=== PATIENT | female | born 1960 | race African-American/Black ===

== ENCOUNTER 2017-01-02 11:21 | Observation (INO) | payer MEDICARE, MEDICAID ==
[2017-01-02] VITALS (8 sets, daily range): BP systolic 135–190; BP diastolic 63–87; PULSE 76–88; RESP 18–24; TEMP 96–97.9; O2SAT 100
[~2017-01-02] VITALS: Ht 170.2 cm; Wt 103.0 kg
[~2017-01-02 11:21] MED LIST: CALC1CAP PO; COZA50TA PO; FURO1TAB61 PO; LABE200T2 PO; LEVEMIR SQ; LEXA10TA PO; METO5TAB PO; PANT40TA3 PO; PLAV75TA29 PO; PRAV80TA PO; PROM25TA5 PO; SENS60TA PO; TYLETAB34 PO
[2017-01-02] MEDS ORDERED: SODIUM CHLOR 0.9% 1000 ML INJ 1,000 ML IV ONE (11:24)
--- NOTE | 2017-01-02 11:39 | PD ---
HPI Chief Complaint: stroke alert Time Seen by Provider: 11:24 Travel History International Travel<30 days: No Contact w/Intl Traveler<30days: No Traveled to known affect area: No History of Present Illness HPI 56-year-old female with history of hypertension, end-stage renal disease on dialysis, legally blind, presents to the ER today brought in by EMS as a stroke alert. Apparently, had been normal according to this morning, had gone to the bank, and about an hour prior to arrival, started getting disoriented, slurred speech, and he had called EMS. Patient is currently disoriented but following some commands. She is able to lift all 4 extremities off the bed. No obvious pronator drift. She denies any numbness in any leg or arm and individually. She denies any chest pains, shortness of breath, or other issues. Modifying Factors: None Associated Signs & Symptoms: Stroke alert, altered mental status, slurred speech Risk Factors: Elderly, multiple medical issues PFSH Past Medical History Anemia: Yes Arthritis: Yes Asthma: No Autoimmune Disease: No Blood Disorders: Yes (anemia of chronic disease) Anxiety: Yes Depression: Yes Cardiac Catheterization: Yes (YESTERDAY LEFT GROIN ) Cardiovascular Problems: Yes High Cholesterol: Yes Chest Pain: Yes Congestive Heart Failure: Yes Cerebrovascular Accident: No Diabetes: Yes Dialysis: Yes (Fri/FRI/FRI) Diminished Hearing: No Endocrine: Yes (DM) Gastrointestinal Disorders: Yes Glaucoma: No Genitourinary: Yes Headaches: Yes Hepatitis: No Hiatal Hernia: No Hypertension: Yes Immune Disorder: No Implanted Vascular Access Dvce: Yes (L UPPER ARM AVF) Musculoskeletal: No Neurologic: No Psychiatric: No Reproductive: No Respiratory: No Renal Failure: Yes (HEMODIALYSIS) Seizures: No Sickle Cell Disease: No Thyroid Disease: No PNEUMOCCOCAL Vaccine (Year): 2 Menopausal: Yes : 2 Para: 1 Miscarriage: 1 : 0 Past Surgical History Abdominal Surgery: Yes Appendectomy: Yes Section: Yes Eye Surgery: Yes Gynecologic Surgery: Yes Pacemaker: No Other Surgery: Yes (LEFT ARM SHUNT PLACEMENT) Social History Alcohol Use: No Tobacco Use: No Substance Use: No Allergies-Medications (Allergen,Severity, Reaction): Coded Allergies: Linezolid (Verified Allergy, Severe, VOMITING, 08/22/16) Percocet (Verified Allergy, Severe, VOMITING, 08/22/16) Zocor (Verified Allergy, Severe, VOMITING, 08/22/16) Zosyn (Verified Allergy, Severe, VOMITING, 08/22/16) Reported Meds & Prescriptions Reported Meds & Active Scripts Active Pantoprazole (Pantoprazole Sodium) 40 Mg Tab 40 Mg PO DAILY 30 Days Calcium Acetate (Phosphate Binder) 667 Mg Cap 667 Mg PO TID 30 Days Reported Tylenol-Codeine #3 (Acetaminophen-Codeine) 300-30 mg Tab 1 Tab PO BID PRN Sensipar (Cinacalcet) 60 Mg Tab 60 Mg PO DAILY Pravachol (Pravastatin) 80 Mg Tab 80 Mg PO DAILY Plavix (Clopidogrel Bisulfate) 75 Mg Tab 75 Mg PO DAILY Phenergan (Promethazine HCl) 25 Mg Tab 25 Mg PO Q6H PRN Metoclopramide (Metoclopramide HCl) 5 Mg Tab 5 Mg PO TIDAC Lexapro (Escitalopram Oxalate) 10 Mg Tab 10 Mg PO DAILY Levemir Inj (Insulin Detemir) 1,000 unit/ 10 ML Vial 25 Units SQ HS PRN Do not mix with any other Insulin. Lasix (Furosemide) 80 Mg Tab 80 Mg PO MON,WED,FRI Labetalol (Labetalol HCl) 200 Mg Tab 200 Mg PO BID Cozaar (Losartan Potassium) 50 Mg Tab 50 Mg PO DAILY Review of Systems ROS Limitations: Altered Mental Status (it is questionable whether he is a reliable historian) Physical Exam Narrative GENERAL: Well-developed middle age -[place]igerien female patient who is awake , alert, mildly disoriented. None acute distress. SKIN: Warm and dry. HEAD: Atraumatic. Normocephalic. EYES: Pupils equal and round. No scleral icterus. No injection or drainage. ENT: No nasal bleeding or discharge. Mucous membranes pink and moist. NECK: Trachea midline. No JVD. CARDIOVASCULAR: Regular rate and rhythm. No murmur appreciated. RESPIRATORY: No accessory muscle use. Clear to auscultation. Breath sounds equal bilaterally. GASTROINTESTINAL: Abdomen soft, non-tender, nondistended. Hepatic and splenic margins not palpable. MUSCULOSKELETAL: No obvious deformities. No clubbing. No cyanosis. No edema. NEUROLOGICAL: Awake and alert, mildly disoriented, lethargic. Blindness bilaterally. No obvious cranial nerve deficits. Motor grossly within normal limits. Slurred speech. No pronator drift. Able to do a normal Romberg. PSYCHIATRIC: Appropriate mood and affect; insight and judgment normal. Data Data Last Documented VS Vital Signs Date Time Temp Pulse Resp B/P Pulse Ox O2 Delivery O2 Flow Rate FiO2 01/02/17 12:20 88 24 135/64 100 Nasal Cannula 2 01/02/17 11:21 97.9 Orders Diet Npo (01/02/17 Lunch) Activity Bed Rest (01/02/17 ) Electrocardiogram (01/02/17 ) I-Stat Creatinine (01/02/17 11:24) I-Stat Profile (01/02/17 11:24) Prothrombin Time / Inr (Pt) (01/02/17 11:24) Act Partial Throm Time (Ptt) (01/02/17 11:24) Complete Blood Count With Diff (01/02/17 11:24) Fibrinogen (01/02/17 11:24) Creatine Kinase (Cpk) (01/02/17 11:24) Troponin I (01/02/17 11:24) Ua Includes Microscopic (01/02/17 11:24) Drug Screen, Random Urine (01/02/17 11:24) Type And Screen (01/02/17 11:24) Ct Brain W/O Iv Contrast(Rout) (01/02/17 ) Blood Glucose (01/02/17 11:24) Ecg Monitoring (01/02/17 11:24) Neuro Checks Q2HX12,Q4H (01/02/17 11:24) Nursing Bedside Swallow Assess .ONCE (01/02/17 11:24) Iv Access Insert/Monitor (01/02/17 11:24) NPO (01/02/17 11:24) Oximetry (01/02/17 11:24) Oxygen Administration (01/02/17 11:24) Sodium Chlor 0.9% 1000 Ml Inj (Ns 1000 M (01/02/17 11:24) Resp Oxygen Isai C Titrat 1-4 L (01/02/17 11:24) Cath For Specimen (01/02/17 11:24) Dextrose 50% In Sarmad (Syr) Inj (D50w (Syr (01/02/17 12:05) Aspirin (Aspirin) (01/02/17 12:45) Admit Order (Ed Use Only) (01/02/17 13:01) Acetamin-Codeine 300-30 Mg (Tylenol-Code (01/02/17 13:00) Calcium Acetate (Phoslo) (01/02/17 14:00) Clopidogrel (Plavix) (01/03/17 09:00) Escitalopram (Lexapro) (01/03/17 09:00) Furosemide (Lasix) (01/03/17 09:00) Labetalol (Trandate) (01/02/17 21:00) Losartan (Cozaar) (01/03/17 09:00) Metoclopramide (Reglan) (01/02/17 17:00) Pantoprazole (Protonix) (01/03/17 09:00) Pravastatin (Pravachol) (01/03/17 09:00) Labs Laboratory Tests Test 01/02/17 11:25 White Blood Count 7.1 TH/MM3 Red Blood Count 3.11 MIL/MM3 Hemoglobin 9.5 GM/DL Bedside Hemoglobin 10.2 G/DL Hematocrit 29.6 % Bedside Hematocrit 30.0 % Mean Corpuscular Volume 95.0 FL Mean Corpuscular Hemoglobin 30.7 PG Mean Corpuscular Hemoglobin 32.3 % Concent Red Cell Distribution Width 18.7 % Platelet Count 215 TH/MM3 Mean Platelet Volume 9.1 FL Neutrophils (%) (Auto) 61.6 % Lymphocytes (%) (Auto) 22.7 % Monocytes (%) (Auto) 9.8 % Eosinophils (%) (Auto) 5.0 % Basophils (%) (Auto) 0.9 % Neutrophils # (Auto) 4.4 TH/MM3 Lymphocytes # (Auto) 1.6 TH/MM3 Monocytes # (Auto) 0.7 TH/MM3 Eosinophils # (Auto) 0.4 TH/MM3 Basophils # (Auto) 0.1 TH/MM3 CBC Comment DIFF FINAL Differential Comment Prothrombin Time 10.8 SEC Prothromb Time International 1.0 RATIO Ratio Activated Partial 23.0 SEC Thromboplast Time Fibrinogen 341 mg/dL Bedside Sodium 138 MMOL/L Bedside Potassium 4.0 MMOL/L Bedside Chloride 97 MMOL/L Bedside Blood Urea Nitrogen 38 MG/DL Bedside Creatinine 7.6 MG/DL Bedside Glucose 69 MG/DL Total Creatine Kinase 179 U/L Troponin I 0.02 NG/ML Blood Type O POSITIVE Antibody Screen NEGATIVE [facility] Medical Screen Exam Complete: Yes Emergency Medical Condition: Yes Medical Record Reviewed: Yes EKG Prior to Arrival: Yes Differential Diagnosis EKG shows NSR with a first-degree AV block, no ST elevation or depression, and no arrhythmias. No significant T-wave inversions. Last [address] 01/02/17 0000 Signed Impressions: Service Date/Time: December 11:31 - CONCLUSION: Normal examination. Aroldo Broderick MD Laboratory Tests Test 01/02/17 11:25 Red Blood Count 3.11 MIL/MM3 (4.00-5.30) Hemoglobin 9.5 GM/DL (11.6-15.3) Bedside Hemoglobin 10.2 G/DL (12.0-17.0) Hematocrit 29.6 % (35.0-46.0) Bedside Hematocrit 30.0 % (38.0-51.0) Red Cell Distribution Width 18.7 % (11.6-17.2) Monocytes (%) (Auto) 9.8 % (0.0-8.0) Eosinophils (%) (Auto) 5.0 % (0.0-4.0) Activated Partial 23.0 SEC Thromboplast Time (24.3-30.1) Bedside Chloride 97 MMOL/L (98-109) Bedside Blood Urea Nitrogen 38 MG/DL (8-26) Bedside Creatinine 7.6 MG/DL (0.6-1.0) Metabolic issues versus CVA versus ICH versus hypertensive emergency Narrative Course Stroke alert was called on the patient and CAT scan was done. Patient did not have any significant focal neurological deficit although she did have some mild disorientation initially. Her blood sugar was 70 in the ER. She was given some orange juice and D50 in the ER. CAT scan was negative and on reevaluation of the patient, she has not having slurred speech and is oriented enough to understand what I'm saying and wants to have her boyfriend help her make TPA decisions. The case had been discussed with who initially had thought of doing TPA but considering that the patient had clearing of symptoms, had an NIH stroke score of less than 1, did not feel that she was a good candidate for TPA. At this point, my plan would be to admit the patient for further observation. Case is discussed with Dr. Warren for admission. Stroke Alert NIHSS NIH Stroke Scale Result: 0 NIHSS Time Completed: 11:22 Thrombolytic Delayed Delay > 60 Mins From Arrival: Eligibility determination Delay Comment: It was felt that the patient is not a TPA candidate because of improvement in Cerner speech and mental status, low NIH stroke score Diagnosis Diagnosis: Primary Impression: National Institutes of Health (NIH) Stroke Scale level of consciousness score 1 , not alert; but arousable by minor stimulation to obey, answer, or respond Admitting Physician Requests: Admit Tre Amanda MD Jan 02, 2017 11:39
[2017-01-02 11:47] LABS: AUTOMATED NEUTROPHIL # 4.4 TH/MM3 (1.8-7.7); BASOPHIL # 0.1 TH/MM3 (0-0.2); BASOPHIL % 0.9 % (0.0-2.0); EOSINOPHIL # 0.4 TH/MM3 (0-0.4); HEMATOCRIT 29.6 % (35.0-46.0); HEMO FLAGS DIFF FINAL; LYMPH % 22.7 % (9.0-44.0); LYMPHOCYTE # 1.6 TH/MM3 (1.0-4.8); MEAN CORPUSCULAR HEMOGLOBIN 30.7 PG (27.0-34.0); MEAN CORPUSCULAR HGB CONC 32.3 % (32.0-36.0); MONO % 9.8 % (0.0-8.0); NEUT % 61.6 % (16.0-70.0); PLATELET COUNT 215 TH/MM3 (150-450); RED BLOOD COUNT 3.11 MIL/MM3 (4.00-5.30); RED CELL DISTRIBUTION WIDTH 18.7 % (11.6-17.2); WHITE BLOOD COUNT 7.1 TH/MM3 (4.0-11.0)
[2017-01-02 11:55] LABS: PROTHROMBIN TIME - PATIENT 10.8 SEC (9.8-11.6)
--- NOTE | 2017-01-02 11:56 | RADRPT ---
EXAM DATE/TIME: 01/02/2017 11:31 [facility] COMPARISON: CT BRAIN W/O CONTRAST, January 18, 2015, 2:32. INDICATIONS : Stroke alert; slurred speech. RADIATION DOSE: 52.82 CTDIvol (mGy) This report was called by Dr. Broderick to Dr. Amanda at 11: 39 AM MEDICAL HISTORY : Cardiovascular disease. Hypertension. Diabetes mellitus type 2. SURGICAL HISTORY : None. ENCOUNTER: Initial ACUITY: 1 day PAIN SCALE: Non-responsive LOCATION: cranial TECHNIQUE: Multiple contiguous axial images were obtained of the head. Using automated exposure control and adj ustment of the mA and/or kV according to patient size, radiation dose was kept as low as reasonably a chievable to obtain optimal diagnostic quality images. FINDINGS: CEREBRUM: The ventricles are normal for age. No evidence of midline shift, mass lesion, hemorrhage or acute in farction. No extra-axial fluid collections are seen. POSTERIOR FOSSA: The cerebellum and brainstem are intact. The 4th ventricle is midline. The cerebellopontine angle i s unremarkable. EXTRACRANIAL: The visualized portion of the orbits is intact. SKULL: The calvaria is intact. No evidence of skull fracture. CONCLUSION: Normal examination. Aroldo Broderick MD on January 02, 2017 at 11:38 Board Certified Radiologist. This report was verified electronically.
[2017-01-02] MEDS ORDERED: DEXTROSE 50% IN WATER 50 ML SYRINGE ONE (12:05)
[2017-01-02] MEDS ORDERED: ASPIRIN 325 MG TAB PO ONE (12:45)
[2017-01-02] MEDS ORDERED: ACETAMINOPHEN/CODEINE 300 MG/30 MG TAB PO PRN (13:00)
[2017-01-02] MEDS ORDERED: SODIUM CHLOR 0.9% 1000 ML INJ 1,000 ML IV SCH (13:02)
[2017-01-02] MEDS ORDERED: ONDANSETRON HCL 4 MG/2 ML VIAL IVP PRN (13:15)
[2017-01-02] MEDS ORDERED: BISACODYL 10 MG SUPP PR PRN (13:15)
[2017-01-02] MEDS ORDERED: ACETAMINOPHEN 325 MG TAB PO PRN ×2 (13:15→15:30)
[2017-01-02] MEDS ORDERED: NALOXONE HCL 0.4 MG/ML AMP IV PRN ×2 (13:15)
[2017-01-02] MEDS ORDERED: SODIUM CHLORIDE 0.9% FLUSH 5 ML FLUSH FLUSH PRN (13:15)
--- NOTE | 2017-01-02 13:19 | HHI.HP ---
[facility] Unknown Admission Diagnosis stroke alert Diagnoses: Chief Complaint: slurred speech, altered Mental Status Travel History International Travel<30 Days: No Contact w/Intl Traveler <30 Da: No Traveled to Known Affected Are: No History of Present Illness This is a pleasant 56 y/o female with Hypertension, ESRD on HD, legally blind who came to ER as Stroke alert, apparently had been normal according to this morning, had gone to the bank, and about an hour prior to arrival, started getting disoriented, slurred speech, and he had called EMS. Patient is currently disoriented but following some commands. She is able to lift all 4 extremities off the bed. No obvious pronator drift. She denies any numbness in any leg or arm and individually. She denies any chest pains, shortness of breath, or other issues. as we know she has Anemia on chronic disease, OA, Anxiety disorder, Depression, CAD status post Left heart cath, Hyperlipidemia, Angina, CHF, DM II, ESRD on HD Friday, Friday and Friday, Hypertension, today with Accelerated Hypertension. Patient seen in Emergency room in the presence of her Son Mr. Sommer Lovell he states he was called due to his mother had this AMS and slurred speech but at this time she states is at normal baseline. her blood pressure elevated but as per guidelines not indicated treatment unless her Systolic blood pressure >220 mm Hg. or Diastolic blood pressure >110 mm Hg. Review of Systems ROS Limitations: Altered Mental Status Neurologic: COMPLAINS OF: Speech Problems Past Family Social History Past Medical History ESRD on HD Obesity Hypertension. Hyperlipidemia Depression Past Surgical History Abdominal surgery Appendectomy C Section Cataract surgery Left arm AV placement. Reported Medications Reported Meds & Active Scripts Active Pantoprazole (Pantoprazole Sodium) 40 Mg Tab 40 Mg PO DAILY 30 Days Calcium Acetate (Phosphate Binder) 667 Mg Cap 667 Mg PO TID 30 Days Reported Tylenol-Codeine #3 (Acetaminophen-Codeine) 300-30 mg Tab 1 Tab PO BID PRN Sensipar (Cinacalcet) 60 Mg Tab 60 Mg PO DAILY Pravachol (Pravastatin) 80 Mg Tab 80 Mg PO DAILY Plavix (Clopidogrel Bisulfate) 75 Mg Tab 75 Mg PO DAILY Phenergan (Promethazine HCl) 25 Mg Tab 25 Mg PO Q6H PRN Metoclopramide (Metoclopramide HCl) 5 Mg Tab 5 Mg PO TIDAC Lexapro (Escitalopram Oxalate) 10 Mg Tab 10 Mg PO DAILY Levemir Inj (Insulin Detemir) 1,000 unit/ 10 ML Vial 25 Units SQ HS PRN Do not mix with any other Insulin. Lasix (Furosemide) 80 Mg Tab 80 Mg PO MON,WED,FRI Labetalol (Labetalol HCl) 200 Mg Tab 200 Mg PO BID Cozaar (Losartan Potassium) 50 Mg Tab 50 Mg PO DAILY Allergies: Coded Allergies: Linezolid (Verified Allergy, Severe, VOMITING, 08/22/16) Percocet (Verified Allergy, Severe, VOMITING, 08/22/16) Zocor (Verified Allergy, Severe, VOMITING, 08/22/16) Zosyn (Verified Allergy, Severe, VOMITING, 08/22/16) Active Ordered Medications Current Medications Medications (Trade) Dose Ordered Sig/Peter Route Start Time Stop Time Status Last Admin (NS 1000 ml Inj) 1,000 ml @ 70 mls/hr [id number] ONCE IV 01/02/17 11:24 01/03/17 01:41 01/02/17 12:10 (Tylenol-Codeine #3) 1 tab BID PRN PO 01/02/17 13:00 UNV (Phoslo) 667 mg TID PO 01/02/17 13:00 UNV (Plavix) 75 mg DAILY PO 01/03/17 09:00 UNV (Lexapro) 10 mg DAILY PO 01/03/17 09:00 UNV (Lasix) 80 mg DAILY PO 01/03/17 09:00 UNV (Trandate) 200 mg BID PO 01/02/17 21:00 UNV (Cozaar) 50 mg DAILY PO 01/03/17 09:00 UNV (Reglan) 5 mg TIDAC PO 01/02/17 17:00 UNV (Protonix) 40 mg DAILY PO 01/03/17 09:00 UNV Pravastatin Sodium 80 mg 80 mg DAILY PO 01/03/17 09:00 UNV (NS 1000 ml Inj) 1,000 ml @ 75 mls/hr [id number] IV 01/02/17 13:02 UNV (NS Flush) 2 ml UNSCH PRN FLUSH 01/02/17 13:15 UNV (NS Flush) 2 ml BID FLUSH 01/02/17 21:00 UNV (Tylenol) 650 mg Q4H PRN PO 01/02/17 13:15 UNV (Zofran Inj) 4 mg Q6H PRN IVP 01/02/17 13:15 UNV (Dulcolax Supp) [address] 01/02/17 13:15 UNV (Colace) 100 mg Q12H PO 01/02/17 13:15 UNV (Heparin Inj) 5,000 units Q12H SQ 01/02/17 13:15 UNV (Narcan Inj) 0.4 mg UNSCH PRN IV 01/02/17 13:15 UNV Family History Asked and denied. Social History Denies any toxic habits. Physical Exam Vital Signs Vital Signs Date Time Temp Pulse Resp B/P Pulse Ox O2 Delivery O2 Flow Rate FiO2 01/02/17 12:17 100 Nasal Cannula 2 01/02/17 11:25 100 Nasal Cannula 3.00 01/02/17 11:21 97.9 80 19 184/79 100 Physical Exam GENERAL: Obese patient in no acute distress. SKIN: Warm and dry. HEAD: Atraumatic. Normocephalic. EYES: Pupils equal and round. Legally blind states is not able to see me. ENT: No nasal bleeding or discharge. Mucous membranes pink and moist. NECK: Trachea midline. No JVD. CARDIOVASCULAR: Regular rate and rhythm. No murmur appreciated. RESPIRATORY: No accessory muscle use. Clear to auscultation. Breath sounds equal bilaterally. GASTROINTESTINAL: Abdomen soft, non-tender, nondistended. Hepatic and splenic margins not palpable. MUSCULOSKELETAL: No obvious deformities. No clubbing. No cyanosis. No edema. NEUROLOGICAL: Awake and alert, mildly disoriented, lethargic. Blindness bilaterally. No obvious cranial nerve deficits. No Slurred speech PSYCHIATRIC: Appropriate mood and affect; insight and judgment normal. Laboratory Laboratory Tests Test 01/02/17 11:25 White Blood Count 7.1 Red Blood Count 3.11 Hemoglobin 9.5 Bedside Hemoglobin 10.2 Hematocrit 29.6 Bedside Hematocrit 30.0 Mean Corpuscular Volume 95.0 Mean Corpuscular Hemoglobin 30.7 Mean Corpuscular Hemoglobin 32.3 Concent Red Cell Distribution Width 18.7 Platelet Count 215 Mean Platelet Volume 9.1 Neutrophils (%) (Auto) 61.6 Lymphocytes (%) (Auto) 22.7 Monocytes (%) (Auto) 9.8 Eosinophils (%) (Auto) 5.0 Basophils (%) (Auto) 0.9 Neutrophils # (Auto) 4.4 Lymphocytes # (Auto) 1.6 Monocytes # (Auto) 0.7 Eosinophils # (Auto) 0.4 Basophils # (Auto) 0.1 CBC Comment DIFF FINAL Differential Comment Prothrombin Time 10.8 Prothromb Time International 1.0 Ratio Activated Partial 23.0 Thromboplast Time Fibrinogen 341 Bedside Sodium 138 Bedside Potassium 4.0 Bedside Chloride 97 Bedside Blood Urea Nitrogen 38 Bedside Creatinine 7.6 Bedside Glucose 69 Total Creatine Kinase 179 Troponin I 0.02 Blood Type O POSITIVE Antibody Screen NEGATIVE Result Diagram: 01/02/17 1125 Imaging GENERAL: Well-developed middle age -[place]oven[place] female patient who is awake , alert, mildly disoriented. None acute distress. SKIN: Warm and dry. HEAD: Atraumatic. Normocephalic. EYES: Pupils equal and round. No scleral icterus. No injection or drainage. ENT: No nasal bleeding or discharge. Mucous membranes pink and moist. NECK: Trachea midline. No JVD. CARDIOVASCULAR: Regular rate and rhythm. No murmur appreciated. RESPIRATORY: No accessory muscle use. Clear to auscultation. Breath sounds equal bilaterally. GASTROINTESTINAL: Abdomen soft, non-tender, nondistended. Hepatic and splenic margins not palpable. MUSCULOSKELETAL: No obvious deformities. No clubbing. No cyanosis. No edema. NEUROLOGICAL: Awake and alert, mildly disoriented, lethargic. Blindness bilaterally. No obvious cranial nerve deficits. Motor grossly within normal limits. Slurred speech. No pronator drift. Able to do a normal Romberg. PSYCHIATRIC: Appropriate mood and affect; insight and judgment normal. Last Impressions Head CT 01/02/17 0000 Signed Impressions: Service Date/Time: December 11:31 - CONCLUSION: Normal examination. Aroldo Broderick MD Assessment and Plan Assessment and Plan 1. Acute Encephalopathy suspected Stroke versus TIA, CT brain negative, discussed with Dr Pappas by ER specialist initially was recommended for TPA but then the patient had rapid improvement so not given. continue Aspirin, Cardiac monitoring, continue Anti hypertensives. although in this cases Permissive Hypertension is the Management. he Encephalopathy improved, asked for Brain MRI, Carotid Doppler and Echocardiogram . 2. DM II follow for possible Hypoglycemia, started Hypoglycemia protocol, continue sliding scale. follow Hb A1C. 3. Accelerated Hypertension permissive only treat it if goes Systolic >220 mm Hg or Diastolic > 110 mm Hg. 4. ESRD on HD on , and . with who initially had thought of doing TPA but the patient improved fast was reconsidered. It was felt that the patient is not a TPA candidate because of improvement 5. Obesity strongly recommended diet and exercise. 6. Hyperlipidemia continue Home medicines. 7. Depression continue Home medicines discussed with patient and her Son in the room Mr. Sommer Lovell all questions answered As Always a pleasure to talk about cases receive input and recommendations by Emergency Medicine specialist Doctor Tre Amanda appreciated. DVT prophylaxis with Heparin. Code Status Full Code. Physician Certification 2 Midnight Certification Type: Admission for Inpatient Services Order for Inpatient Services The services are ordered in accordance with Medicare regulations or non- Medicare payer requirements, as applicable. In the case of services not specified as inpatient-only, they are appropriately provided as inpatient services in accordance with the 2-midnight benchmark. Estimated LOS (days): 1 days is the estimated time the patient will need to remain in the hospital, assuming treatment plan goals are met and no additional complications. Post-Hospital Plan: Home Juma Hwang MD Jan 02, 2017 13:19
--- NOTE | 2017-01-02 15:11 | RADRPT ---
EXAM DATE/TIME: 01/02/2017 13:37 [facility] COMPARISON: US CAROTID ARTERIES, October 11, 2013, 14:36. INDICATIONS : Transient ischemic attack. MEDICAL HISTORY : Congestive heart failure. Hypercholesterolemia. Hypertension. Legally blind - bilateral. Dizziness. H eadache. Dyspnea. Renal disease. Renal failure, hemodialysis. Diabetes. Arthritis. Anemia. SURGICAL HISTORY : Appendectomy. section. Cardiac catheterization, left groin. Left arm AV fistula. ENCOUNTER: Initial ACUITY: 1 day PAIN SCORE: 0/10 LOCATION: Bilateral neck PEAK SYSTOLIC VELOCITIES (cm/sec): ICA/CCA RATIO: Right: 1.8 Left: 0.8 ICA: Right: 107 Left: 55 CCA: Right: 59 Left: 66 ECA: Right: 216 Left: 98 VERTEBRAL: Right: 55 antegrade Left: 55 antegrade Elevated flow velocities and ICA/CCA ratios have been found to correlate with increased degrees of vessel stenosis, calculated as percentage of diameter relative to a normal segment of distal ICA/CCA FINDINGS: RIGHT CAROTID: Mild elevation of ratios is noted.. Minimal intimal hyperplasia is present with scatt ered calcific plaque. LEFT CAROTID: There is no evidence for a hemodynamically significant carotid stenosis. Minimal inti mal hyperplasia is present with scattered calcific plaque. VERTEBRAL ARTERIES: Flow is antegrade in both vertebral arteries. MISCELLANEOUS: There are no ancillary masses or adenopathy. CONCLUSION: Negative examination for a hemodynamically significant carotid stenosis. Disease on the right is worse in the left but not felt to be significant yet Corey Rogers MD FACR Corey Rogers MD FACR on January 02, 2017 at 15:08 Board Certified Radiologist. This report was verified electronically.
[2017-01-02] MEDS ORDERED: SODIUM CHLOR 0.9% 1000 ML INJ 1,000 ML IV PRN ×3 (15:26)
[2017-01-02] MEDS ORDERED: GELATIN 12 MM/7 MM FOAM TOP PRN (15:30)
[2017-01-02] MEDS ORDERED: cloNIDine HCL 0.1 MG TAB PO PRN (15:30)
[2017-01-02] MEDS ORDERED: HEPARIN SODIUM - IV 10,000 UNITS/10 ML VIAL IVF PRN (15:30)
[2017-01-02] MEDS ORDERED: MANNITOL 12.5 GM/50 ML VIAL IV PRN (15:30)
[2017-01-02] MEDS ORDERED: ALBUMIN HUMAN 25% 25 GM/100 ML BAGP IV PRN (15:30)
[2017-01-02] MEDS ORDERED: ONDANSETRON HCL 4 MG/2 ML VIAL IV PRN (15:30)
[2017-01-02] MEDS ORDERED: NITROGLYCERIN 0.4 MG SL 25 TABS/BTL SL PRN (15:30)
[2017-01-02] MEDS ORDERED: GENTAMICIN SULFATE (DIALYSIS USE ONLY) 20 MG/2 ML VIAL IV PRN (15:30)
[2017-01-02] MEDS ORDERED: HEPARIN SODIUM - IV 10,000 UNITS/10 ML VIAL PRN (15:30)
[2017-01-02] MEDS ORDERED: EPOETIN ALFA 10,000 UNITS/ML VIAL IV PRN (15:30)
[2017-01-02] MEDS ORDERED: SODIUM CHLORIDE 0.9% FLUSH 5 ML FLUSH IVF PRN (15:30)
[2017-01-02] MEDS ORDERED: diphenhydrAMINE HCL 25 MG CAP PO PRN (15:30)
--- NOTE | 2017-01-02 15:30 | PD.CONS ---
HPI Service Nephrology Consult Requested By Reason for Consult ESRD on HD Primary Care Physician Unknown History of Present Illness This is our 56 y/o AAF dialysis pt. She had full treatment yesterday and I actually saw her in the clinic. She was normal. Apparently this afternoon after returning from the bank she developed headache and confusion with some weakness. her family called EMS for transport to hospital. She was not given TPA as her symptoms improved. She was also reporting dysphasia. PMH of Anemia of chronic disease, OA, Anxiety disorder, Depression, CAD status post Left heart cath, Hyperlipidemia, Angina, CHF, DM II, ESRD on HD Friday, Friday and Friday, and Hypertension. She has AV access that works well. We were consulted for renal management. On arrival her blood glucose was slightly low, she was given one amp D50 and one liter of IVF. (Ladonna Mercedes) Review of Systems Constitutional: COMPLAINS OF: Fatigue, DENIES: Change in appetite Cardiovascular: DENIES: Chest pain, Dyspnea on Exertion, Lower Extremity Edema Gastrointestinal: DENIES: Abdominal pain Neurologic: COMPLAINS OF: Headache, Speech Problems, DENIES: Paresthesias ( Ladonna Mercedes) Past Family Social History Allergies: Coded Allergies: Linezolid (Verified Allergy, Severe, VOMITING, 08/22/16) Percocet (Verified Allergy, Severe, VOMITING, 08/22/16) Zocor (Verified Allergy, Severe, VOMITING, 08/22/16) Zosyn (Verified Allergy, Severe, VOMITING, 08/22/16) Past Medical History Past Medical History ESRD on HD M-W-F anemia DM II metabolic bone disorder Obesity Hypertension. Hyperlipidemia Depression legally blind Past Surgical History Abdominal surgery Appendectomy C Section Cataract surgery Left arm AV placement. Reported Medications Pantoprazole (Pantoprazole Sodium) 40 Mg Tab 40 Mg PO DAILY 30 Days Calcium Acetate (Phosphate Binder) 667 Mg Cap 667 Mg PO TID 30 Days Reported Tylenol-Codeine #3 (Acetaminophen-Codeine) 300-30 mg Tab 1 Tab PO BID PRN Sensipar (Cinacalcet) 60 Mg Tab 60 Mg PO DAILY Pravachol (Pravastatin) 80 Mg Tab 80 Mg PO DAILY Plavix (Clopidogrel Bisulfate) 75 Mg Tab 75 Mg PO DAILY Phenergan (Promethazine HCl) 25 Mg Tab 25 Mg PO Q6H PRN Metoclopramide (Metoclopramide HCl) 5 Mg Tab 5 Mg PO TIDAC Lexapro (Escitalopram Oxalate) 10 Mg Tab 10 Mg PO DAILY Levemir Inj (Insulin Detemir) 1,000 unit/ 10 ML Vial 25 Units SQ HS PRN Do not mix with any other Insulin. Lasix (Furosemide) 80 Mg Tab 80 Mg PO MON,WED,FRI Labetalol (Labetalol HCl) 200 Mg Tab 200 Mg PO BID Cozaar (Losartan Potassium) 50 Mg Tab 50 Mg PO DAILY Active Ordered Medications Current Medications Medications (Trade) Dose Ordered Sig/Peter Route Start Time Stop Time Status Last Admin (Tylenol-Codeine #3) 1 tab BID PRN PO 01/02/17 13:00 (Phoslo) 667 mg TID PO 01/02/17 14:00 (Plavix) 75 mg DAILY PO 01/03/17 09:00 (Lexapro) 10 mg DAILY PO 01/03/17 09:00 (Lasix) 80 mg DAILY PO 01/03/17 09:00 (Trandate) 200 mg BID PO 01/02/17 21:00 (Cozaar) 50 mg DAILY PO 01/03/17 09:00 (Reglan) 5 mg TIDAC PO 01/02/17 17:00 (Protonix) 40 mg DAILY PO 01/03/17 09:00 Pravastatin Sodium 80 mg 80 mg DAILY PO 01/03/17 09:00 (NS 1000 ml Inj) 1,000 ml @ 75 mls/hr [id number] IV 01/02/17 13:02 (NS Flush) 2 ml UNSCH PRN FLUSH 01/02/17 13:15 (NS Flush) 2 ml BID FLUSH 01/02/17 21:00 (Tylenol) 650 mg Q4H PRN PO 01/02/17 13:15 (Zofran Inj) 4 mg Q6H PRN IVP 01/02/17 13:15 (Dulcolax Supp) 10 mg DAILY PRN [place] 01/02/17 13:15 (Colace) 100 mg Q12H PO 01/02/17 13:15 (Heparin Inj) 5,000 units Q12H SQ 01/02/17 18:00 (Narcan Inj) 0.4 mg UNSCH PRN IV 01/02/17 13:15 (Aspirin) 325 mg DAILY PO 01/03/17 09:00 Family History No hx of renal disorders Social History single, lives with boyfriend uses wheelchair legally blind, needs assistance unemployed/disabled full code no smoking, ETOH, or hx of drug use (Ladonna Mercedes) Physical Exam Vital Signs Vital Signs Date Time Temp Pulse Resp B/P Pulse Ox O2 Delivery O2 Flow Rate FiO2 01/02/17 13:30 76 22 190/87 100 Nasal Cannula 2 01/02/17 12:20 88 24 135/64 100 Nasal Cannula 2 01/02/17 12:17 100 Nasal Cannula 2 01/02/17 11:25 100 Nasal Cannula 3.00 01/02/17 11:21 97.9 80 19 184/79 100 Laboratory Laboratory Tests Test 01/02/17 01/02/17 11:25 14:09 White Blood Count 7.1 Red Blood Count 3.11 Hemoglobin 9.5 Bedside Hemoglobin 10.2 Hematocrit 29.6 Bedside Hematocrit 30.0 Mean Corpuscular Volume 95.0 Mean Corpuscular Hemoglobin 30.7 Mean Corpuscular Hemoglobin 32.3 Concent Red Cell Distribution Width 18.7 Platelet Count 215 Mean Platelet Volume 9.1 Neutrophils (%) (Auto) 61.6 Lymphocytes (%) (Auto) 22.7 Monocytes (%) (Auto) 9.8 Eosinophils (%) (Auto) 5.0 Basophils (%) (Auto) 0.9 Neutrophils # (Auto) 4.4 Lymphocytes # (Auto) 1.6 Monocytes # (Auto) 0.7 Eosinophils # (Auto) 0.4 Basophils # (Auto) 0.1 CBC Comment DIFF FINAL Differential Comment Prothrombin Time 10.8 Prothromb Time International 1.0 Ratio Activated Partial 23.0 Thromboplast Time Fibrinogen 341 Bedside Sodium 138 Bedside Potassium 4.0 Bedside Chloride 97 Bedside Blood Urea Nitrogen 38 Bedside Creatinine 7.6 Bedside Glucose 69 Total Creatine Kinase 179 Troponin I 0.02 0.02 Blood Type O POSITIVE Antibody Screen NEGATIVE (Ladonna Mercedes) Result Diagram: 01/02/17 1125 Imaging Last Impressions Head CT 01/02/17 0000 Signed Impressions: Service Date/Time: December 11:31 - CONCLUSION: Normal examination. Aroldo Broderick MD Carotid Artery Ultrasound 01/02/17 0000 Signed Impressions: Service Date/Time: December 13:37 - CONCLUSION: Negative examination for a hemodynamically significant carotid stenosis. Disease on the right is worse in the left but not felt to be significant yet Corey Rogers MD (Ladonna Mercedes) Assessment and Plan Problem List: (1) ESRD (end stage renal disease) Plan: HD -, no need for HD today she has access in left arm, functions well no electrolyte concerns I stopped the IVF, avoid fluids this hospitalization high protein diet when swallow is evaluated avoid gadolinium in pts with ESRD renal panel in am (2) HTN (hypertension) Plan: BP high, home medications resumed I will give a dose of clonidine now (3) Anemia Plan: epogen with HD (4) Metabolic bone disease Plan: phoslo started, follow phos intermittently (5) Confusion Plan: rule out CVA neurology consulted, CT head negative , carotid negative but insignificant stenosis R>L on ASA and Plavix (Ladonna Mercedes) Assessment and Plan patient was seen and examined. Admitted with confusion. To have dialysis MWF. Stop IVF. Neurology evaluation. (Sai Suggs MD) Problem Qualifiers (1) HTN (hypertension): Qualified Code: I10 - Essential hypertension Ladonna Mercedes Jan 02, 2017 15:29 Sai Suggs MD Jan 02, 2017 17:56
[2017-01-02] MEDS ORDERED: cloNIDine HCL 0.1 MG TAB PO ONE (16:00)
[2017-01-02] MEDS: INSULIN NovoLIN REGULAR SUPPLEMENTAL SCALE SQ SCH ×2 (16:00→21:00)
--- NOTE | 2017-01-02 16:02 | RADRPT ---
EXAM DATE/TIME: 01/02/2017 15:25 [facility] COMPARISON: CT BRAIN W/O CONTRAST, January 02, 2017, 11:31. INDICATIONS : CVA. MEDICAL HISTORY : Diabetes mellitus type 2. Renal failure, chronic. SURGICAL HISTORY : Appendectomy. Stents in legs and cataracts. ENCOUNTER: Initial ACUITY: 1 day PAIN SCORE: 0/10 LOCATION: Head. TECHNIQUE: Multiplanar, multisequence MRI of the brain was performed without contrast. FINDINGS: CEREBRUM: The ventricles are normal for age. No evidence of midline shift, mass lesion, hemorrhage or acute in farction. No extraaxial fluid collections are seen. There is an empty sella configuration. WHITE MATTER: There are mild areas of increased signal in the periventricular white matter. POSTERIOR FOSSA: The cerebellum and brainstem are intact. The 4th ventricle is midline. The cerebellopontine angle is unremarkable. The cerebellar tonsils are normal in position. DIFFUSION IMAGING: No focal areas of restricted diffusion are seen. No evidence of acute infarction. EXTRACRANIAL: The visualized portions of the orbits and paranasal sinuses are unremarkable. CONCLUSION: No acute abnormality is seen. There is mild suspected small vessel ischemic change in the white matte r. Aroldo Broderick MD on January 02, 2017 at 15:57 Board Certified Radiologist. This report was verified electronically.
--- NOTE | 2017-01-02 17:51 | PD.CONS ---
History of Present Illness Service Neurology Consult Requested By er Reason for Consult stroke alert Primary Care Physician Unknown History of Present Illness 56 y/o female with Hypertension, ESRD on HD, legally blind who came to ER as Stroke alert, apparently had been normal according to this morning. [place] the [place] and felt lightheaded. she did not have breakfast. and about an hour prior to arrival, started getting disoriented, slurred speech, and he had called EMS. bp 184/79. nihss 1 at best. due to low score and non-focal symptoms, she was not deemed an iv tpa candidate. glucose was 69 was given supplementation and responded well to it. more alert and improved speech and orientation. denies any focal weakness, new vision loss. or new sensory symptoms. son felt pt was at her baseline in er. Review of Systems as above and admit hp Past Family Social History Past Medical History ESRD on HD Obesity Hypertension. Hyperlipidemia Depression Past Surgical History Abdominal surgery Appendectomy C Section Cataract surgery Left arm AV placement. Reported Medications Reported Meds & Active Scripts Active Pantoprazole (Pantoprazole Sodium) 40 Mg Tab 40 Mg PO DAILY 30 Days Calcium Acetate (Phosphate Binder) 667 Mg Cap 667 Mg PO TID 30 Days Reported Tylenol-Codeine #3 (Acetaminophen-Codeine) 300-30 mg Tab 1 Tab PO BID PRN Sensipar (Cinacalcet) 60 Mg Tab 60 Mg PO DAILY Pravachol (Pravastatin) 80 Mg Tab 80 Mg PO DAILY Plavix (Clopidogrel Bisulfate) 75 Mg Tab 75 Mg PO DAILY Phenergan (Promethazine HCl) 25 Mg Tab 25 Mg PO Q6H PRN Metoclopramide (Metoclopramide HCl) 5 Mg Tab 5 Mg PO TIDAC Lexapro (Escitalopram Oxalate) 10 Mg Tab 10 Mg PO DAILY Levemir Inj (Insulin Detemir) 1,000 unit/ 10 ML Vial 25 Units SQ HS PRN Do not mix with any other Insulin. Lasix (Furosemide) 80 Mg Tab 80 Mg PO MON,WED,FRI Labetalol (Labetalol HCl) 200 Mg Tab 200 Mg PO BID Cozaar (Losartan Potassium) 50 Mg Tab 50 Mg PO DAILY Allergies: Coded Allergies: Linezolid (Verified Allergy, Severe, VOMITING, 08/22/16) Percocet (Verified Allergy, Severe, VOMITING, 08/22/16) Zocor (Verified Allergy, Severe, VOMITING, 08/22/16) Zosyn (Verified Allergy, Severe, VOMITING, 08/22/16) Family History +htn Social History Denies any tob/etoh/illicit drugs Review of Systems All other ROS: ROS reviewed as documented in chart Past Family Social History Allergies: Coded Allergies: Linezolid (Verified Allergy, Severe, VOMITING, 08/22/16) Percocet (Verified Allergy, Severe, VOMITING, 08/22/16) Zocor (Verified Allergy, Severe, VOMITING, 08/22/16) Zosyn (Verified Allergy, Severe, VOMITING, 08/22/16) Active Ordered Medications Current Medications Medications (Trade) Dose Ordered Sig/Peter Route Start Time Stop Time Status Last Admin (Tylenol-Codeine #3) 1 tab BID PRN PO 01/02/17 13:00 (Phoslo) 667 mg TID PO 01/02/17 14:00 (Plavix) 75 mg DAILY PO 01/03/17 09:00 (Lexapro) 10 mg DAILY PO 01/03/17 09:00 (Lasix) 80 mg DAILY PO 01/03/17 09:00 (Trandate) 200 mg BID PO 01/02/17 21:00 (Cozaar) 50 mg DAILY PO 01/03/17 09:00 (Reglan) 5 mg TIDAC PO 01/02/17 17:00 (Protonix) 40 mg DAILY PO 01/03/17 09:00 (Pravachol) 80 mg DAILY PO 01/03/17 09:00 (NS Flush) 2 ml UNSCH PRN FLUSH 01/02/17 13:15 (NS Flush) 2 ml BID FLUSH 01/02/17 21:00 (Tylenol) 650 mg Q4H PRN PO 01/02/17 13:15 (Zofran Inj) 4 mg Q6H PRN IVP 01/02/17 13:15 (Dulcolax Supp) 10 mg DAILY PRN [place] 01/02/17 13:15 (Colace) 100 mg Q12H PO 01/02/17 13:15 (Heparin Inj) 5,000 units Q12H SQ 01/02/17 18:00 (Narcan Inj) 0.4 mg UNSCH PRN IV 01/02/17 13:15 Aspirin 325 mg 325 mg DAILY PO 01/03/17 09:00 (NS 1000 ml Inj) 1,000 ml @ 0 mls/hr Q0M PRN IV 01/02/17 15:26 Heparin Sodium (Porcine) 8000 units 8,000 units UNSCH PRN IVF 01/02/17 15:30 Sodium Chloride 1,000 ml @ 200 mls/hr Q5H PRN IV 01/02/17 15:26 (NS 1000 ml Inj) 1,000 ml @ 0 mls/hr Q0M PRN IV 01/02/17 15:26 (Mannitol Inj) 12.5 gm UNSCH PRN IV 01/02/17 15:30 (Albumin 25% Inj) 25 gm UNSCH PRN IV 01/02/17 15:30 (NS Flush) 5 ml UNSCH PRN IVF 01/02/17 15:30 (Heparin Inj) UNSCH PRN .XX 01/02/17 15:30 (Gentamicin (Dialysis) Inj) 20 mg UNSCH PRN IV 01/02/17 15:30 (Zofran Inj) 4 mg UNSCH PRN IV 01/02/17 15:30 (Tylenol) 650 mg UNSCH PRN PO 01/02/17 15:30 (Benadryl) 25 mg UNSCH PRN PO 01/02/17 15:30 (Nitrostat Sl) 0.4 mg UNSCH PRN SL 01/02/17 15:30 (Catapres) 0.1 mg UNSCH PRN PO 01/02/17 15:30 (Epogen Inj) 10,000 units UNSCH PRN IV 01/02/17 15:30 (Gelfoam 12 Mm/7 Mm Top) 1 foam UNSCH PRN TOP 01/02/17 15:30 Exam I&O / VS Vital Signs Date Time Temp Pulse Resp B/P Pulse Ox O2 Delivery O2 Flow Rate FiO2 01/02/17 16:00 96.0 84 19 142/65 100 01/02/17 13:30 76 22 190/87 100 Nasal Cannula 2 01/02/17 12:20 88 24 135/64 100 Nasal Cannula 2 01/02/17 12:17 100 Nasal Cannula 2 01/02/17 11:25 100 Nasal Cannula 3.00 01/02/17 11:21 97.9 80 19 184/79 100 General: Alert and Oriented, No acute distress Eye: EOMI Respiratory: Non-labored respirations Cardiology: Normal rate Musculoskeletal: ROM Neurologic: Alert Psychiatric: Cooperative, Appropriate mood & affect Exam Comments morbid obesity, lying in bed, ox 2-3. not to exact date. follows, articulate. eomi, vff reduced kamini, able to see light, some finger perception (chronic per pt ) face sym, zelaya to gravity, no dysmetria, stocking-glove neuropathy, msr depressed, no clonus, planter flexor response Review/Management Diagnosis/Plan: (1) Metabolic encephalopathy Plan: improved likely 2/2 low glucose, poor po intake this am tia/sz lesser likely mri brain negative for acute infarct recs eeg small frequent meals aspirin qd ldl goal <70; bp control wt loss/exercise p.t/s.t evals d/c planning in am (2) DM type 2 with diabetic peripheral neuropathy Plan: glucose control (3) HTN (hypertension) Plan: bp control (4) ESRD (end stage renal disease) Plan: on hd Problem Qualifiers (1) HTN (hypertension): Qualified Code: I10 - Essential hypertension Jhon Pappas MD Jan 02, 2017 17:51
[2017-01-02] MEDS: METOCLOPRAMIDE HCL 10 MG TAB PO SCH (17:55)
[2017-01-02] MEDS: CALCIUM ACETATE 667 MG CAP PO SCH (17:55)
[2017-01-02] MEDS: HEPARIN SODIUM - SQ 10,000 UNITS/ML VIAL SQ SCH (17:56)
[2017-01-02] MEDS: LABETALOL HCL 200 MG TAB PO SCH (21:12)
[2017-01-02] MEDS: SODIUM CHLORIDE 0.9% FLUSH 5 ML FLUSH FLUSH SCH (21:13)
[2017-01-02 21:50] LABS: FREE T4 0.91 NG/DL (0.76-1.46); HDL CHOLESTEROL 38.8 MG/DL (40.0-60.0); LDL CHOLESTEROL 51 MG/DL (0-99)
[2017-01-02 22:40] LABS: HEMOGLOBIN A1b 1.8 %; HEMOGLOBIN Ao 84.7 %; HEMOGLOBIN LA1C 2.5 %; HEMOGLOBIN P3 5.6 %
[2017-01-03] VITALS (7 sets, daily range): BP systolic 125–135; BP diastolic 65–72; PULSE 80–92; RESP 18–21; TEMP 96.9–97.9; O2SAT 96–100
[2017-01-03] MEDS: DOCUSATE SODIUM 100 MG CAP PO SCH ×2 (01:15→12:02)
[2017-01-03] MEDS: HEPARIN SODIUM - SQ 10,000 UNITS/ML VIAL SQ SCH ×2 (06:15→18:16)
[2017-01-03] MEDS: INSULIN NovoLIN REGULAR SUPPLEMENTAL SCALE SQ SCH ×3 (07:00→16:00)
--- NOTE | 2017-01-03 07:59 | HHI.PR ---
Review/Management Diagnosis/Plan: (1) Metabolic encephalopathy Plan: improved likely 2/2 low glucose, poor po intake this am tia/sz lesser likely mri brain negative for acute infarct recs eeg-pending was on aspirin at home (she thinks) can d/c it ad continue on plavix ldl goal <70; ldl 51; could reduce dose of statin wt loss/exercise p.t/s.t evals no driving d/c planning today from neuro (2) DM type 2 with diabetic peripheral neuropathy Plan: glucose control (3) HTN (hypertension) Plan: bp control (4) ESRD (end stage renal disease) Plan: on hd Subjective Subjective Comments No acute events reported No headache No chest pain No dyspnea Active Medications Current Medications Medications (Trade) Dose Ordered Sig/Peter Route Start Time Stop Time Status Last Admin (Tylenol-Codeine #3) 1 tab BID PRN PO 01/02/17 13:00 (Phoslo) 667 mg TID PO 01/02/17 14:00 01/02/17 17:55 (Plavix) 75 mg DAILY PO 01/03/17 09:00 (Lexapro) 10 mg DAILY PO 01/03/17 09:00 (Lasix) 80 mg DAILY PO 01/03/17 09:00 (Trandate) 200 mg BID PO 01/02/17 21:00 01/02/17 21:12 (Cozaar) 50 mg DAILY PO 01/03/17 09:00 (Reglan) 5 mg TIDAC PO 01/02/17 17:00 01/02/17 17:55 (Protonix) 40 mg DAILY PO 01/03/17 09:00 (Pravachol) 80 mg DAILY PO 01/03/17 09:00 (NS Flush) 2 ml UNSCH PRN FLUSH 01/02/17 13:15 (NS Flush) 2 ml BID FLUSH 01/02/17 21:00 01/02/17 21:13 (Tylenol) 650 mg Q4H PRN PO 01/02/17 13:15 (Zofran Inj) 4 mg Q6H PRN IVP 01/02/17 13:15 (Dulcolax Supp) 10 mg DAILY PRN [place] 01/02/17 13:15 (Colace) 100 mg Q12H PO 01/02/17 13:15 (Heparin Inj) 5,000 units Q12H SQ 01/02/17 18:00 01/03/17 06:15 (Narcan Inj) 0.4 mg UNSCH PRN IV 01/02/17 13:15 Aspirin 325 mg 325 mg DAILY PO 01/03/17 09:00 (NS 1000 ml Inj) 1,000 ml @ 0 mls/hr Q0M PRN IV 01/02/17 15:26 Heparin Sodium (Porcine) 8000 units 8,000 units UNSCH PRN IVF 01/02/17 15:30 Sodium Chloride 1,000 ml @ 200 mls/hr Q5H PRN IV 01/02/17 15:26 (NS 1000 ml Inj) 1,000 ml @ 0 mls/hr Q0M PRN IV 01/02/17 15:26 (Mannitol Inj) 12.5 gm UNSCH PRN IV 01/02/17 15:30 (Albumin 25% Inj) 25 gm UNSCH PRN IV 01/02/17 15:30 (NS Flush) 5 ml UNSCH PRN IVF 01/02/17 15:30 (Heparin Inj) UNSCH PRN .XX 01/02/17 15:30 (Gentamicin (Dialysis) Inj) 20 mg UNSCH PRN IV 01/02/17 15:30 (Zofran Inj) 4 mg UNSCH PRN IV 01/02/17 15:30 (Tylenol) 650 mg UNSCH PRN PO 01/02/17 15:30 (Benadryl) 25 mg UNSCH PRN PO 01/02/17 15:30 (Nitrostat Sl) 0.4 mg UNSCH PRN SL 01/02/17 15:30 (Catapres) 0.1 mg UNSCH PRN PO 01/02/17 15:30 (Epogen Inj) 10,000 units UNSCH PRN IV 01/02/17 15:30 (Gelfoam 12 Mm/7 Mm Top) 1 foam UNSCH PRN TOP 01/02/17 15:30 Allergies Allergies Coded Allergies Linezolid (Verified Allergy, Severe, VOMITING, 08/22/16) Percocet (Verified Allergy, Severe, VOMITING, 08/22/16) Zocor (Verified Allergy, Severe, VOMITING, 08/22/16) Zosyn (Verified Allergy, Severe, VOMITING, 08/22/16) Review of Systems All other ROS: ROS reviewed as documented in chart Exam I&O / VS 01/02/17 01/02/17 01/03/17 15:00 23:00 07:00 Intake Total 400 ml Balance 400 ml Intake Oral 400 ml # Voids 0 # Bowel Movements 0 Vital Signs Date Time Temp Pulse Resp B/P Pulse Ox O2 Delivery O2 Flow Rate FiO2 01/03/17 05:00 97.9 80 21 125/65 97 01/03/17 00:00 97.3 80 18 127/68 96 01/02/17 20:06 97.2 76 18 140/63 100 01/02/17 18:50 78 01/02/17 18:08 100 Nasal Cannula 2.00 01/02/17 16:00 96.0 84 19 142/65 100 01/02/17 13:30 76 22 190/87 100 Nasal Cannula 2 01/02/17 12:20 88 24 135/64 100 Nasal Cannula 2 01/02/17 12:17 100 Nasal Cannula 2 01/02/17 11:25 100 Nasal Cannula 3.00 01/02/17 11:21 97.9 80 19 184/79 100 General: Alert and Oriented, No acute distress Eye: EOMI Respiratory: Non-labored respirations Cardiology: Normal rate Musculoskeletal: ROM Neurologic: Alert Psychiatric: Cooperative, Appropriate mood & affect Exam Comments morbid obesity, alert ox 2-3. not to exact date. follows, articulate. eomi, vff reduced kamini, able to see light, some finger perception (chronic per pt) face sym , zelaya to gravity, no dysmetria, stocking-glove neuropathy, msr depressed, no clonus, planter flexor response Objective Micro and Labs Laboratory Tests Test 01/02/17 01/02/17 01/02/17 11:25 14:09 20:50 White Blood Count 7.1 Red Blood Count 3.11 Hemoglobin 9.5 Bedside Hemoglobin 10.2 Hematocrit 29.6 Bedside Hematocrit 30.0 Mean Corpuscular Volume 95.0 Mean Corpuscular Hemoglobin 30.7 Mean Corpuscular Hemoglobin 32.3 Concent Red Cell Distribution Width 18.7 Platelet Count 215 Mean Platelet Volume 9.1 Neutrophils (%) (Auto) 61.6 Lymphocytes (%) (Auto) 22.7 Monocytes (%) (Auto) 9.8 Eosinophils (%) (Auto) 5.0 Basophils (%) (Auto) 0.9 Neutrophils # (Auto) 4.4 Lymphocytes # (Auto) 1.6 Monocytes # (Auto) 0.7 Eosinophils # (Auto) 0.4 Basophils # (Auto) 0.1 CBC Comment DIFF FINAL Differential Comment Prothrombin Time 10.8 Prothromb Time International 1.0 Ratio Activated Partial 23.0 Thromboplast Time Fibrinogen 341 Bedside Sodium 138 Bedside Potassium 4.0 Bedside Chloride 97 Bedside Blood Urea Nitrogen 38 Bedside Creatinine 7.6 Bedside Glucose 69 Total Creatine Kinase 179 Troponin I 0.02 0.02 0.02 Blood Type O POSITIVE Antibody Screen NEGATIVE Hemoglobin A1c 5.1 Triglycerides Level 273 Cholesterol Level 144 LDL Cholesterol 51 HDL Cholesterol 38.8 Cholesterol/HDL Ratio 3.71 Free Thyroxine 0.91 Thyroid Stimulating Hormone 1.020 3rd Gen Problem Qualifiers (1) HTN (hypertension): Qualified Code: I10 - Essential hypertension Jhon Pappas MD Jan 03, 2017 07:59
[2017-01-03 08:35] LABS: AUTOMATED NEUTROPHIL # 4.5 TH/MM3 (1.8-7.7); BASOPHIL # 0.1 TH/MM3 (0-0.2); BASOPHIL % 0.8 % (0.0-2.0); EOSINOPHIL # 0.6 TH/MM3 (0-0.4); EOSINOPHIL % 8.3 % (0.0-4.0); HEMATOCRIT 28.4 % (35.0-46.0); HEMO FLAGS DIFF FINAL; LYMPH % 17.1 % (9.0-44.0); LYMPHOCYTE # 1.2 TH/MM3 (1.0-4.8); MEAN CORPUSCULAR HEMOGLOBIN 30.7 PG (27.0-34.0); MEAN CORPUSCULAR HGB CONC 32.3 % (32.0-36.0); MONO % 9.1 % (0.0-8.0); NEUT % 64.7 % (16.0-70.0); PLATELET COUNT 217 TH/MM3 (150-450); RED BLOOD COUNT 2.99 MIL/MM3 (4.00-5.30); RED CELL DISTRIBUTION WIDTH 17.9 % (11.6-17.2)
[2017-01-03 08:45] LABS: PROTHROMBIN TIME - PATIENT 10.8 SEC (9.8-11.6)
[2017-01-03] MEDS ORDERED: FUROSEMIDE 80 MG TAB PO SCH (09:00)
[2017-01-03] MEDS ORDERED: CLOPIDOGREL 75 MG TAB PO SCH (09:00)
[2017-01-03] MEDS ORDERED: PRAVASTATIN SOD 20 MG TAB PO SCH (09:00)
[2017-01-03] MEDS ORDERED: LOSARTAN 50 MG TAB PO SCH (09:00)
[2017-01-03] MEDS ORDERED: PANTOPRAZOLE SOD 40 MG DELAYED RELEASE TAB PO SCH (09:00)
[2017-01-03] MEDS ORDERED: PRAVASTATIN SOD 80 MG TAB PO SCH (09:00)
[2017-01-03] MEDS ORDERED: ASPIRIN 325 MG TAB PO SCH (09:00)
[2017-01-03] MEDS ORDERED: ESCITALOPRAM OXALATE 10 MG TAB PO SCH (09:00)
[2017-01-03 09:03] LABS: BICARBONATE 30.1 MEQ/L (21.0-32.0); INDIRECT BILIRUBIN 0.4 MG/DL (0.0-0.8); POTASSIUM 4.5 MEQ/L (3.5-5.1); TOTAL BILIRUBIN ADULT 0.5 MG/DL (0.2-1.0)
[2017-01-03] MEDS: CALCIUM ACETATE 667 MG CAP PO SCH ×3 (09:15→18:16)
[2017-01-03] MEDS: LABETALOL HCL 200 MG TAB PO SCH (09:15)
[2017-01-03] MEDS: METOCLOPRAMIDE HCL 10 MG TAB PO SCH ×3 (09:15→17:00)
[2017-01-03] MEDS: SODIUM CHLORIDE 0.9% FLUSH 5 ML FLUSH FLUSH SCH (09:16)
--- NOTE | 2017-01-03 09:42 | HHI.PR ---
Subjective Remarks This is a pleasant 56 y/o female with Hypertension, ESRD on HD, legally blind who came to ER as Stroke alert, apparently had been normal according to this morning, had gone to the bank, and about an hour prior to arrival, started getting disoriented, slurred speech, and he had called EMS. Patient is currently disoriented but following some commands. She is able to lift all 4 extremities off the bed. No obvious pronator drift. She denies any numbness in any leg or arm and individually. She denies any chest pains, shortness of breath, or other issues. as we know she has Anemia on chronic disease, OA, Anxiety disorder, Depression, CAD status post Left heart cath, Hyperlipidemia, Angina, CHF, DM II, ESRD on HD Friday, Friday and Friday, Hypertension, today with Accelerated Hypertension. Seen in her bedroom on two opportunities today, before Dialysis and now after Dialysis, seen by Neurology specialist thinking her condition was secondary to Hypoglycemia, patient stable she has Nurse at home. Objective Vital Signs Date Time Temp Pulse Resp B/P Pulse Ox O2 Delivery O2 Flow Rate FiO2 01/03/17 08:00 96.9 92 18 135/69 99 01/03/17 05:00 97.9 80 21 125/65 97 01/03/17 00:00 97.3 80 18 127/68 96 01/02/17 20:06 97.2 76 18 140/63 100 01/02/17 18:50 78 01/02/17 18:08 100 Nasal Cannula 2.00 01/02/17 16:00 96.0 84 19 142/65 100 01/02/17 13:30 76 22 190/87 100 Nasal Cannula 2 01/02/17 12:20 88 24 135/64 100 Nasal Cannula 2 01/02/17 12:17 100 Nasal Cannula 2 01/02/17 11:25 100 Nasal Cannula 3.00 01/02/17 11:21 97.9 80 19 184/79 100 I/O 01/02/17 01/02/17 01/02/17 01/03/17 01/03/17 01/03/17 07:00 15:00 23:00 07:00 15:00 23:00 Intake Total 400 ml Balance 400 ml Intake Oral 400 ml # Voids 0 # Bowel Movements 0 Result Diagram: 01/03/17 0721 01/03/17 0721 Imaging Last Impressions Head CT 01/02/17 0000 Signed Impressions: Service Date/Time: December 11:31 - CONCLUSION: Normal examination. Aroldo Broderick MD Carotid Artery Ultrasound 01/02/17 0000 Signed Impressions: Service Date/Time: December 13:37 - CONCLUSION: Negative examination for a hemodynamically significant carotid stenosis. Disease on the right is worse in the left but not felt to be significant yet Corey Rogers MD Brain MRI 01/02/17 0000 Signed Impressions: Service Date/Time: December 15:25 - CONCLUSION: No acute abnormality is seen. There is mild suspected small vessel ischemic change in the white matter. Aroldo Broderick MD Procedures Hemodialysis. Other Results Laboratory Tests Test 01/02/17 01/02/17 01/03/17 11:25 20:50 07:21 Bedside Hemoglobin 10.2 G/DL Bedside Hematocrit 30.0 % Activated Partial 23.0 SEC Thromboplast Time Fibrinogen 341 mg/dL Bedside Sodium 138 MMOL/L Bedside Potassium 4.0 MMOL/L Bedside Chloride 97 MMOL/L Bedside Blood Urea Nitrogen 38 MG/DL Bedside Creatinine 7.6 MG/DL Bedside Glucose 69 MG/DL Total Creatine Kinase 179 U/L Blood Type O POSITIVE Antibody Screen NEGATIVE Hemoglobin A1c 5.1 % Troponin I 0.02 NG/ML Triglycerides Level 273 MG/DL Cholesterol Level 144 MG/DL LDL Cholesterol 51 MG/DL HDL Cholesterol 38.8 MG/DL Cholesterol/HDL Ratio 3.71 RATIO Free Thyroxine 0.91 NG/DL Thyroid Stimulating Hormone 1.020 uIU/ML 3rd Gen White Blood Count 7.0 TH/MM3 Red Blood Count 2.99 MIL/MM3 Hemoglobin 9.2 GM/DL Hematocrit 28.4 % Mean Corpuscular Volume 95.0 FL Mean Corpuscular Hemoglobin 30.7 PG Mean Corpuscular Hemoglobin 32.3 % Concent Red Cell Distribution Width 17.9 % Platelet Count 217 TH/MM3 Mean Platelet Volume 9.0 FL Neutrophils (%) (Auto) 64.7 % Lymphocytes (%) (Auto) 17.1 % Monocytes (%) (Auto) 9.1 % Eosinophils (%) (Auto) 8.3 % Basophils (%) (Auto) 0.8 % Neutrophils # (Auto) 4.5 TH/MM3 Lymphocytes # (Auto) 1.2 TH/MM3 Monocytes # (Auto) 0.6 TH/MM3 Eosinophils # (Auto) 0.6 TH/MM3 Basophils # (Auto) 0.1 TH/MM3 CBC Comment DIFF FINAL Differential Comment Prothrombin Time 10.8 SEC Prothromb Time International 1.0 RATIO Ratio Sodium Level 138 MEQ/L Potassium Level 4.5 MEQ/L Chloride Level 99 MEQ/L Carbon Dioxide Level 30.1 MEQ/L Anion Gap 9 MEQ/L Blood Urea Nitrogen 50 MG/DL Creatinine 9.08 MG/DL Estimat Glomerular Filtration 5 ML/MIN Rate Random Glucose 99 MG/DL Calcium Level 8.3 MG/DL Phosphorus Level 4.7 MG/DL Total Bilirubin 0.5 MG/DL Direct Bilirubin 0.1 MG/DL Indirect Bilirubin 0.4 MG/DL Aspartate Amino Transf 18 U/L (AST/SGOT) Alanine Aminotransferase 20 U/L (ALT/SGPT) Alkaline Phosphatase 167 U/L Total Protein 7.1 GM/DL Albumin 3.1 GM/DL Objective Remarks GENERAL: Obese patient in no acute distress. SKIN: Warm and dry. HEAD: Atraumatic. Normocephalic. EYES: Pupils equal and round. Legally blind states is not able to see me. ENT: No nasal bleeding or discharge. Mucous membranes pink and moist. NECK: Trachea midline. No JVD. CARDIOVASCULAR: Regular rate and rhythm. No murmur appreciated. RESPIRATORY: No accessory muscle use. Clear to auscultation. Breath sounds equal bilaterally. GASTROINTESTINAL: Abdomen soft, non-tender, nondistended. Hepatic and splenic margins not palpable. MUSCULOSKELETAL: No obvious deformities. No clubbing. No cyanosis. No edema. NEUROLOGICAL: Awake and alert, mildly disoriented, lethargic. Blindness bilaterally. No obvious cranial nerve deficits. No Slurred speech PSYCHIATRIC: Appropriate mood and affect; insight and judgment normal. Medications and IVs Current Medications Medications (Trade) Dose Ordered Sig/Peter Route Start Time Stop Time Status Last Admin (Tylenol-Codeine #3) 1 tab BID PRN PO 01/02/17 13:00 (Phoslo) 667 mg TID PO 01/02/17 14:00 01/03/17 09:15 (Plavix) 75 mg DAILY PO 01/03/17 09:00 01/03/17 09:16 (Lexapro) 10 mg DAILY PO 01/03/17 09:00 01/03/17 09:15 (Lasix) 80 mg DAILY PO 01/03/17 09:00 01/03/17 09:16 (Trandate) 200 mg BID PO 01/02/17 21:00 01/03/17 09:15 (Cozaar) 50 mg DAILY PO 01/03/17 09:00 01/03/17 09:16 (Reglan) 5 mg TIDAC PO 01/02/17 17:00 01/03/17 09:15 (Protonix) 40 mg DAILY PO 01/03/17 09:00 01/03/17 09:15 (NS Flush) 2 ml UNSCH PRN FLUSH 01/02/17 13:15 (NS Flush) 2 ml BID FLUSH 01/02/17 21:00 01/03/17 09:16 (Tylenol) 650 mg Q4H PRN PO 01/02/17 13:15 (Zofran Inj) 4 mg Q6H PRN IVP 01/02/17 13:15 (Dulcolax Supp) 10 mg DAILY PRN AR 01/02/17 13:15 (Colace) 100 mg Q12H PO 01/02/17 13:15 (Heparin Inj) 5,000 units Q12H SQ 01/02/17 18:00 01/03/17 06:15 Naloxone HCl 0.4 mg 0.4 mg UNSCH PRN IV 01/02/17 13:15 (NS 1000 ml Inj) 1,000 ml @ 0 mls/hr Q0M PRN IV 01/02/17 15:26 Heparin Sodium (Porcine) 8000 units 8,000 units UNSCH PRN IVF 01/02/17 15:30 Sodium Chloride 1,000 ml @ 200 mls/hr Q5H PRN IV 01/02/17 15:26 (NS 1000 ml Inj) 1,000 ml @ 0 mls/hr Q0M PRN IV 01/02/17 15:26 (Mannitol Inj) 12.5 gm UNSCH PRN IV 01/02/17 15:30 (Albumin 25% Inj) 25 gm UNSCH PRN IV 01/02/17 15:30 (NS Flush) 5 ml UNSCH PRN IVF 01/02/17 15:30 (Heparin Inj) UNSCH PRN .XX 01/02/17 15:30 (Gentamicin (Dialysis) Inj) 20 mg UNSCH PRN IV 01/02/17 15:30 (Zofran Inj) 4 mg UNSCH PRN IV 01/02/17 15:30 (Tylenol) 650 mg UNSCH PRN PO 01/02/17 15:30 (Benadryl) 25 mg UNSCH PRN PO 01/02/17 15:30 (Nitrostat Sl) 0.4 mg UNSCH PRN SL 01/02/17 15:30 (Catapres) 0.1 mg UNSCH PRN PO 01/02/17 15:30 (Epogen Inj) 10,000 units UNSCH PRN IV 01/02/17 15:30 (Gelfoam 12 Mm/7 Mm Top) 1 foam UNSCH PRN TOP 01/02/17 15:30 (Pravachol) 20 mg DAILY PO 01/03/17 09:00 01/03/17 09:15 A/P Problem List: (1) Hypertension ICD Code: I10 (2) Metabolic encephalopathy ICD Code: G93.41 (3) DM type 2 with diabetic peripheral neuropathy ICD Code: E11.42 Assessment and Plan 1. Acute Encephalopathy Ruled out Stroke or TIA, CT brain negative,discussed with Dr Pappas by ER specialist initially was recommended for TPA but then the patient had rapid improvement so not given. continue Aspirin, Cardiac monitoring, continue Anti hypertensives. although in this cases Permissive Hypertension is the Management. he Encephalopathy improved, asked for Brain MRI, Carotid Doppler and Echocardiogram . Not found pathology and recommended to discharge as per Neurology specialist. as per PT recommended Home with [facility] for PT. 2. DM II follow for possible Hypoglycemia, started Hypoglycemia protocol, continue sliding scale. Hemoglobin A1C 5.2 will go off Insulin by now and diet and follow by PCP. 3. Accelerated Hypertension permissive only treat it if goes Systolic >220 mm Hg or Diastolic > 110 mm Hg. Improved. will continue Home medicines. 4. ESRD on HD on , and . as per Nephrology had HD today will continue her Home schedule. 5. Obesity strongly recommended diet and exercise. 6. Hyperlipidemia continue Home medicines. 7. Depression continue Home medicines Discussed with Patient and she will go home and schedule for Home with [facility] for PT the patient already has a Nurse. DVT prophylaxis with Heparin. Code Status Full Code. Discharge Planning Discharge Home on [facility] for PT and she has already a nurse. Juma Hwang MD Jan 03, 2017 09:42
--- NOTE | 2017-01-03 11:53 | EC ---
Study Study Date:01/03/2017 STUDY CONCLUSIONS SUMMARY LEFT VENTRICLE: The cavity size was normal. Wall thickness was normal. Systolic function was normal. The estimated ejection fraction was in the range of 55% to 60%. Wall motion was normal; there were no regional wall motion abnormalities. Impressions: No cardiac source of emboli was indentified. If LV function is below 40, please consider prescribing an ACEI or ARB or document rationale for non-use. PROCEDURE DATA STUDY STATUS: Elective. Procedure: Transthoracic echocardiography. Image quality was good. Scanning was performed from the parasternal, apical, and subcostal acoustic windows. Study completion: The patient tolerated the procedure well. Transthoracic echocardiography. M-mode, complete 2D, complete spectral Doppler, and color Doppler. Patient status: Inpatient. CARDIAC ANATOMY LEFT VENTRICLE: The cavity size was normal. Wall thickness was normal. Systolic function was normal. The estimated ejection fraction was in the range of 55% to 60%. Wall motion was normal; there were no regional wall motion abnormalities. AORTIC VALVE: Trileaflet; normal thickness leaflets. Doppler: Transvalvular velocity was within the normal range. There was no stenosis. No regurgitation. Peak gradient: 14mm Hg (S). AORTA: Aortic root: The aortic root was normal in size. MITRAL VALVE: Structurally normal valve. Doppler: Transvalvular velocity was within the normal range. There was no evidence for stenosis. No regurgitation. Peak gradient: 8mm Hg (D). LEFT ATRIUM: The atrium was normal in size. RIGHT VENTRICLE: The cavity size was normal. Wall thickness was normal. PULMONIC VALVE: Doppler: Transvalvular velocity was within the normal range. There was no evidence for stenosis. No regurgitation. TRICUSPID VALVE: Structurally normal valve. Doppler: Transvalvular velocity was within the normal range. No regurgitation. PULMONARY ARTERY: The main pulmonary artery was normal-sized. Systolic pressure was within the normal range. RIGHT ATRIUM: The atrium was normal in size. PERICARDIUM: There was no pericardial effusion. SYSTEMIC VEINS: Inferior vena cava: The vessel was normal in size. BASIC MEASUREMENTS ADULT Normal Left ventricle LV internal dimension, ED, chordal level, 52 mm 43-52 PLAX LV internal dimension, ES, chordal level, *39.9 mm 23-38 PLAX Fractional shortening, chordal level, PLAX *23 % >29 LV posterior wall thickness, ED 8.32 mm IVS/LVPW ratio, ED 1.27 <1.3 Ventricular septum Septal thickness, ED 10.6 mm Aortic valve Leaflet separation 18 mm 15-26 Left atrium Anterior-posterior dimension 40 mm Right ventricle RV internal dimension, ED, PLAX 25.5 mm 19-38 BASIC MEASUREMENTS ADULT Normal Aortic valve Leaflet separation 18 mm 15-26 Aorta Root diameter, ED 30 mm 20-37 DOPPLER MEASUREMENTS ADULT Normal Aortic valve Peak velocity, S 187 cm/s Peak gradient, S 14 mm Hg Mitral valve Peak E-wave velocity 143 cm/s Peak A-wave velocity 105 cm/s Peak gradient, D 8 mm Hg Peak E/A ratio 1.4 Tricuspid valve Regurgitant peak velocity 224 cm/s Peak RV-RA gradient, S 20 mm Hg Maximal regurgitant velocity 224 cm/s LEGEND: Mean values are shown as u=mean value. Asterisk (*) moore values outside specified normal range. Prepared and signed by Chavez Clemons [id number]
--- NOTE | 2017-01-03 13:33 | HHI.NPPN ---
Subjective General Problems: Anemia Renal Failure: Chronic, End Stage Renal Disease Interval History Seen during dialysis. She feels her symptoms have improved. (Ladonna Mercedes) Review of Systems Neuro Neuro: Headache, Tingling (Ladonna Mercedes) Objective Data Data 01/02/17 01/03/17 19:00 07:00 Intake Total 400 ml Balance 400 ml Intake Oral 400 ml # Voids 0 # Bowel Movements 0 Vital Signs Date Time Temp Pulse Resp B/P Pulse Ox O2 Delivery O2 Flow Rate FiO2 01/03/17 12:00 97.1 90 18 130/72 100 01/03/17 10:26 98 Nasal Cannula 2.00 01/03/17 09:39 84 01/03/17 08:00 96.9 92 18 135/69 99 01/03/17 05:00 97.9 80 21 125/65 97 01/03/17 00:00 97.3 80 18 127/68 96 01/02/17 20:06 97.2 76 18 140/63 100 01/02/17 18:50 78 01/02/17 18:08 100 Nasal Cannula 2.00 01/02/17 16:00 96.0 84 19 142/65 100 01/02/17 13:30 76 22 190/87 100 Nasal Cannula 2 (Ladonna Mercedes) -: 01/03/17 0721 01/03/17 0721 Imaging Last Impressions Head CT 01/02/17 0000 Signed Impressions: Service Date/Time: December 11:31 - CONCLUSION: Normal examination. Aroldo Broderick MD Carotid Artery Ultrasound 01/02/17 0000 Signed Impressions: Service Date/Time: December 13:37 - CONCLUSION: Negative examination for a hemodynamically significant carotid stenosis. Disease on the right is worse in the left but not felt to be significant yet Corey Rogers MD Brain MRI 01/02/17 0000 Signed Impressions: Service Date/Time: December 15:25 - CONCLUSION: No acute abnormality is seen. There is mild suspected small vessel ischemic change in the white matter. Aroldo Broderick MD (Ladonna Mercedes) Physical Exam General Appearance: Well Developed, Well Nourished, No Acute Distress, Comfortable ( Ladonna Mercedes) Throat Throat Exam: Oral Mucosa [place] & Moist (Ladonna Mercedes) Pulmonary Resp Exam: Clear Bilaterally, Breath Sounds Equal (Ladonna Mercedes) Cardiology CV Exam: Regular, Normal Sinus Rhythm (Ladonna Mercedes) Gastrointestinal/Abdomen GI Exam: Soft, Non-Tender, Bowel Sounds Present, Positive Bowel Movement ( Ladonna Mercedes) Musculoskeletal MS Exam: Joints Intact, Normal Tone (Ladonna Mercedes) Integumentary Skin Exam: Warm, Dry (Ladonna Mercedes) Extremeties Extremities Exam: No Edema, Pedal Pulses Palpable Extremeties Remarks left arm AVF (Ladonna Mercedes) Neurologic Neuro Exam: Alert, Awake, Oriented, Speech Clear, Moving All Extremities ( Ladonna Mercedes) Assessment/Plan Discussed Condition With: Patient Problem List: (1) ESRD (end stage renal disease) Plan: HD , seen during dialysis on a 3K, 350 BFR, goal 3L she has access in left arm, functions well no electrolyte concerns high protein diet avoid gadolinium in pts with ESRD renal panel in am (2) HTN (hypertension) Plan: BP stable continue home medications (3) Anemia Plan: epogen with HD (4) Metabolic bone disease Plan: phoslo started, follow phos intermittently (5) Confusion Plan: rule out CVA neurology consulted, CT head negative , carotid negative but insignificant stenosis R>L MRI neg on ASA and Plavix (Ladonna Mercedes) Plan patient was seen and examined during dialysis. She is not confused anymore, mental function at baseline. On 3K, UF goal is 3 liters, BFR 350 ml/min, tolerating it well. She can be discharged from renal standpoint. (Sai Suggs MD) Problem Qualifiers (1) HTN (hypertension): Qualified Code: I10 - Essential hypertension Ladonna Mercedes Jan 03, 2017 13:33 Sai Suggs MD Jan 03, 2017 14:41
--- NOTE | 2017-01-03 15:40 | EKG ---
Date Performed: 01/02/2017 Time Performed: 12:26:39 PTAGE: 56 years EKG: Sinus rhythm WITH FIRST DEGREE AV BLOCK BORDERLINE LEFT AXIS DEVIATION NONSPECIFIC T-WAVE ABNORMALITY PROLONGED Q T INTERVAL ABNORMAL ECG PREVIOUS TRACING : 08/22/2016 23.56 Compared to prior tracing no significant change DOCTOR: Elissa Forman Interpretating Date/Time 01/03/2017 15:38:33
--- NOTE | 2017-01-03 17:12 | HHI.DS ---
Discharge Summary Admission Date Jan 02, 2017 at 13:02 Discharge Date: Jan 03, 2017 Admitting Diagnosis stroke alert (1) Encephalopathy acute ICD Code: G93.40 Diagnosis: Principal (2) Accelerated hypertension ICD Code: I10 Diagnosis: Principal (3) DM type 2 with diabetic peripheral neuropathy ICD Code: E11.42 Diagnosis: Principal (4) ESRD (end stage renal disease) ICD Code: N18.6 Diagnosis: Principal Procedures Hemodialysis Brief History - From Admission This is a pleasant 56 y/o female with Hypertension, ESRD on HD, legally blind who came to ER as Stroke alert, apparently had been normal according to this morning, had gone to the [employer], and about an hour prior to arrival, started getting disoriented, slurred speech, and he had called EMS. Patient is currently disoriented but following some commands. She is able to lift all 4 extremities off the bed. No obvious pronator drift. She denies any numbness in any leg or arm and individually. She denies any chest pains, shortness of breath, or other issues. as we know she has Anemia on chronic disease, OA, Anxiety disorder, Depression, CAD status post Left heart cath, Hyperlipidemia, Angina, CHF, DM II, ESRD on HD Friday, Friday and Friday, Hypertension, today with Accelerated Hypertension. Patient seen in Emergency room in the presence of her Son Mr. Sommer Lovell he states he was called due to his mother had this AMS and slurred speech but at this time she states is at normal baseline. her blood pressure elevated but as per guidelines not indicated treatment unless her Systolic blood pressure >220 mm Hg. or Diastolic blood pressure >110 mm Hg. CBC/BMP: 01/03/17 0721 01/03/17 0721 Significant Findings Laboratory Tests Test 01/02/17 01/02/17 01/03/17 11:25 20:50 07:21 Red Blood Count 3.11 MIL/MM3 2.99 MIL/MM3 (4.00-5.30) (4.00-5.30) Hemoglobin 9.5 GM/DL 9.2 GM/DL (11.6-15.3) (11.6-15.3) Bedside Hemoglobin 10.2 G/DL (12.0-17.0) Hematocrit 29.6 % 28.4 % (35.0-46.0) (35.0-46.0) Bedside Hematocrit 30.0 % (38.0-51.0) Red Cell Distribution Width 18.7 % 17.9 % (11.6-17.2) (11.6-17.2) Monocytes (%) (Auto) 9.8 % (0.0-8.0) 9.1 % (0.0-8.0) Eosinophils (%) (Auto) 5.0 % (0.0-4.0) 8.3 % (0.0-4.0) Activated Partial 23.0 SEC Thromboplast Time (24.3-30.1) Bedside Chloride 97 MMOL/L (98-109) Bedside Blood Urea Nitrogen 38 MG/DL (8-26) Bedside Creatinine 7.6 MG/DL (0.6-1.0) Triglycerides Level 273 MG/DL (42-150) HDL Cholesterol 38.8 MG/DL (40.0-60.0) Eosinophils # (Auto) 0.6 TH/MM3 (0-0.4) Blood Urea Nitrogen 50 MG/DL (7-18) Creatinine 9.08 MG/DL (0.50-1.00) Estimat Glomerular Filtration 5 ML/MIN (>89) Rate Calcium Level 8.3 MG/DL (8.5-10.1) Alkaline Phosphatase 167 U/L (45-117) Albumin 3.1 GM/DL (3.4-5.0) Imaging Last Impressions Head CT 01/02/17 0000 Signed Impressions: Service Date/Time: December 11:31 - CONCLUSION: Normal examination. Aroldo Broderick MD Carotid Artery Ultrasound 01/02/17 0000 Signed Impressions: Service Date/Time: December 13:37 - CONCLUSION: Negative examination for a hemodynamically significant carotid stenosis. Disease on the right is worse in the left but not felt to be significant yet Corey Rogers MD Brain MRI 01/02/17 0000 Signed Impressions: Service Date/Time: December 15:25 - CONCLUSION: No acute abnormality is seen. There is mild suspected small vessel ischemic change in the white matter. Aroldo Broderick MD PE at Discharge GENERAL: Obese patient in no acute distress. SKIN: Warm and dry. HEAD: Atraumatic. Normocephalic. EYES: Pupils equal and round. Legally blind states is not able to see me. ENT: No nasal bleeding or discharge. Mucous membranes pink and moist. NECK: Trachea midline. No JVD. CARDIOVASCULAR: Regular rate and rhythm. No murmur appreciated. RESPIRATORY: No accessory muscle use. Clear to auscultation. Breath sounds equal bilaterally. GASTROINTESTINAL: Abdomen soft, non-tender, nondistended. Hepatic and splenic margins not palpable. MUSCULOSKELETAL: No obvious deformities. No clubbing. No cyanosis. No edema. NEUROLOGICAL: Awake and alert, mildly disoriented, lethargic. Blindness bilaterally. No obvious cranial nerve deficits. No Slurred speech PSYCHIATRIC: Appropriate mood and affect; insight and judgment normal. Hospital Course This is a pleasant 56 y/o female with Hypertension, ESRD on HD, legally blind who came to ER as Stroke alert, apparently had been normal according to this morning, had gone to the [employer], and about an hour prior to arrival, started getting disoriented, slurred speech, and he had called EMS. Patient is currently disoriented but following some commands. She is able to lift all 4 extremities off the bed. No obvious pronator drift. She denies any numbness in any leg or arm and individually. She denies any chest pains, shortness of breath, or other issues. as we know she has Anemia on chronic disease, OA, Anxiety disorder, Depression, CAD status post Left heart cath, Hyperlipidemia, Angina, CHF, DM II, ESRD on HD Friday, Friday and Friday, Hypertension, today with Accelerated Hypertension. Seen in her bedroom on two opportunities today, before Dialysis and now after Dialysis, seen by Neurology specialist thinking her condition was secondary to Hypoglycemia, patient stable she has Nurse at home. Assessment and Plan 1. Acute Encephalopathy Ruled out Stroke or TIA, CT brain negative,discussed with Dr Pappas by ER specialist initially was recommended for TPA but then the patient had rapid improvement so not given. continue Aspirin, Cardiac monitoring, continue Anti hypertensives. although in this cases Permissive Hypertension is the Management. he Encephalopathy improved, asked for Brain MRI, Carotid Doppler and Echocardiogram . Not found pathology and recommended to discharge as per Neurology specialist. as per PT recommended Home with [facility] for PT. 2. DM II follow for possible Hypoglycemia, started Hypoglycemia protocol, continue sliding scale. Hemoglobin A1C 5.2 will go off Insulin by now and diet and follow by PCP. 3. Accelerated Hypertension permissive only treat it if goes Systolic >220 mm Hg or Diastolic > 110 mm Hg. Improved. will continue Home medicines. 4. ESRD on HD on , and . as per Nephrology had HD today will continue her Home schedule. 5. Obesity strongly recommended diet and exercise. 6. Hyperlipidemia continue Home medicines. 7. Depression continue Home medicines Discussed with Patient and she will go home and schedule for Home with [facility] for PT the patient already has a Nurse. DVT prophylaxis with Heparin. Code Status Full Code. Discharge Planning Discharge Home on [facility] for PT and she has already a nurse. Pt Condition on Discharge: Stable Discharge Disposition: Disch w/ Home Health Serv Discharge Time: <= 30 minutes Discharge Instructions DIET: Follow Instructions for: Heart Healthy Diet, Diabetic Diet Activities you can perform: Regular-No Restrictions Juma Hwang MD Jan 03, 2017 17:12
--- NOTE | 2017-01-03 17:13 | HHI.FF ---
Face to Face Verification Diagnosis: (1) Accelerated hypertension (2) Encephalopathy acute (3) DM type 2 with diabetic peripheral neuropathy (4) ESRD (end stage renal disease) Physical Therapy Order: Evaluate and Treat, Improve ambulation, Strength and gait training I have seen patient Mariza Lovell on 01/03/17. My clinical findings support the need for the requested home health care services because: Ltd mobility - disease progression Deconditioned w/ increased weakness High risk of falls I certify that my clinical findings support that this patient is homebound because: Unsteady gait/balance Unsafe to leave home unassisted Need for psychosocial assistance Juma Hwang MD Jan 03, 2017 17:13
--- NOTE | 2017-01-04 11:41 | MG ---
cc: USHA CRAVEN MD Lab No:[id number] Date: 01/03/2017 Age: 56 Sex: F Race: DATE OF : 1960 HISTORY: 56-year-old. History of cataracts dizziness, chest pain, anxiety. posterior rhythm demonstrates 5-7 Hz activity. Frequent eye movement artifact. Mild slowing noted at times. His reduced driving with photic stimulation. Single EKG showing sinus rhythm. INTERPRETATION Mild encephalopathy. Frequent eye movement artifact. Clinical correlation. Usha Craven MD MG/ /10:32 AM /11:33 AM
== END 2017-01-03 18:48 | disposition home health service (06) ==
LOC: NEPC 11:21 → NEDA 13:02 → INTOOBSV 13:02 → N05B 16:01
PROVIDERS: ADMIT Internal Medicine; ATTEND Internal Medicine
DX: G93.41 Metabolic encephalopathy (principal); I13.2 Hypertensive heart and chronic kidney disease with heart failure and with stage 5 chronic kidney disease, or end stage renal disease; E11.22 Type 2 diabetes mellitus with diabetic chronic kidney disease; E11.42 Type 2 diabetes mellitus with diabetic polyneuropathy; N18.6 End stage renal disease; E78.5 Hyperlipidemia, unspecified; H54.8 Legal blindness, as defined in USA; F32.9 Major depressive disorder, single episode, unspecified; I50.9 Heart failure, unspecified; Z99.2 Dependence on renal dialysis; E88.89 Other specified metabolic disorders; I25.10 Atherosclerotic heart disease of native coronary artery without angina pectoris; D63.1 Anemia in chronic kidney disease; Z79.82 Long term (current) use of aspirin; F41.9 Anxiety disorder, unspecified; E78.00 Pure hypercholesterolemia, unspecified; E66.01 Morbid (severe) obesity due to excess calories; Z79.84 Long term (current) use of oral hypoglycemic drugs; Z68.35 Body mass index [BMI] 35.0-35.9, adult; Z79.02 Long term (current) use of antithrombotics/antiplatelets; Z88.8 Allergy status to other drugs, medicaments and biological substances; Z88.5 Allergy status to narcotic agent
CPT/HCPCS: 70450; 70551; 80048; 80061; 80076; 82435; 82550; 82565; 82947; 82948; 83036; 84100; 84132; 84295; 84439; 84443; 84484; 84520; 85025; 85384; 85610; 85730; 86850; 86900; 86901; 92610; 93005; 93306; 93880; 95819; 96374; 97162; 97167; 99285; G0257; G0378; G8996; G8997; G8998; J1644; J7030; P9612; Q4081; 90935

== ENCOUNTER 2017-01-17 17:48 | Inpatient (IN) | payer MEDICARE, MEDICAID ==
[~2017-01-17] VITALS: Ht 170.2 cm; Wt 105.5 kg
[~2017-01-17 17:48] MED LIST changes: -LEVEMIR SQ
[2017-01-17] MEDS ORDERED: SODIUM CHLORIDE 0.9% FLUSH 10 ML FLUSH IV FLUSH PRN ×2 (18:15→20:45)
--- NOTE | 2017-01-17 18:15 | PD ---
HPI Chief Complaint: ABDOMINAL PAIN Time Seen by Provider: 18:14 Travel History International Travel<30 days: No Contact w/Intl Traveler<30days: No History of Present Illness HPI 56-year-old female with a history of ESRD on hemodialysis MWF, hypertension, diabetes, TIA presents to the emergency department for evaluation of abdominal pain, nausea, vomiting, diaphoresis and headache. Patient states that she went to dialysis this morning and they took off about 3 L of fluid, states that they usually take off between 3-4 L of fluid. States that she hasn't been feeling well generally today and after she went to dialysis she came home and took a nap. States that she woke up from the nap she felt diaphoretic and had sharp epigastric abdominal pain. States that she tried to eat and had 2-3 episodes of nonbloody nonbilious emesis. States that she also started feeling short of breath and having a headache which is when she called EMS. She denies chest pain, diarrhea, constipation, lightheadedness, dizziness, swelling of the extremities. Symptoms are moderate. No other complaints. [employer] Offbearer is Dr. Ramirez. Says that her PCP is the health Department. [facility] Past Medical History Anemia: Yes Arthritis: Yes Asthma: No Autoimmune Disease: No Blood Disorders: Yes (anemia of chronic disease) Anxiety: Yes Depression: Yes Cancer: No Cardiac Catheterization: Yes (YESTERDAY LEFT GROIN ) Cardiovascular Problems: Yes High Cholesterol: Yes Chest Pain: Yes Congestive Heart Failure: Yes Cerebrovascular Accident: No Diabetes: Yes Dialysis: Yes ([facility] FRI/FRI/FRI) Diminished Hearing: No Endocrine: No Gastrointestinal Disorders: Yes Glaucoma: No Genitourinary: Yes Headaches: Yes Hepatitis: No Hiatal Hernia: No Hypertension: Yes Immune Disorder: No Implanted Vascular Access Dvce: Yes (L UPPER ARM AVF) Musculoskeletal: No Neurologic: No Psychiatric: Yes Reproductive: No Respiratory: No Renal Failure: Yes Seizures: No Sickle Cell Disease: No Thyroid Disease: No PNEUMOCCOCAL Vaccine (Year): 2 Menopausal: Yes : 2 Para: 1 Miscarriage: 1 : 0 Past Surgical History Abdominal Surgery: Yes (appendectomy) Appendectomy: Yes Cardiac Surgery: No Section: Yes Ear Surgery: No Endocrine Surgery: No Eye Surgery: Yes (bilateral cataracts removal) Genitourinary Surgery: No Gynecologic Surgery: No Oral Surgery: No Pacemaker: No Thoracic Surgery: No Other Surgery: Yes (LEFT ARM SHUNT PLACEMENT) Social History Alcohol Use: No Tobacco Use: No Substance Use: No Allergies-Medications (Allergen,Severity, Reaction): Coded Allergies: Linezolid (Verified Allergy, Severe, VOMITING, 01/17/17) Percocet (Verified Allergy, Severe, VOMITING, 01/17/17) Zocor (Verified Allergy, Severe, VOMITING, 01/17/17) Zosyn (Verified Allergy, Severe, VOMITING, 01/17/17) Reported Meds & Prescriptions Reported Meds & Active Scripts Active Pantoprazole (Pantoprazole Sodium) 40 Mg Tab 40 Mg PO DAILY 30 Days Calcium Acetate (Phosphate Binder) 667 Mg Cap 667 Mg PO TID 30 Days Reported Tylenol-Codeine #3 (Acetaminophen-Codeine) 300-30 mg Tab 1 Tab PO BID PRN Sensipar (Cinacalcet) 60 Mg Tab 60 Mg PO DAILY Pravachol (Pravastatin) 80 Mg Tab 80 Mg PO DAILY Plavix (Clopidogrel Bisulfate) 75 Mg Tab 75 Mg PO DAILY Phenergan (Promethazine HCl) 25 Mg Tab 25 Mg PO Q6H PRN Metoclopramide (Metoclopramide HCl) 5 Mg Tab 5 Mg PO TIDAC Lexapro (Escitalopram Oxalate) 10 Mg Tab 10 Mg PO DAILY Lasix (Furosemide) 80 Mg Tab 80 Mg PO MON,WED,FRI Labetalol (Labetalol HCl) 200 Mg Tab 200 Mg PO BID Cozaar (Losartan Potassium) 50 Mg Tab 50 Mg PO DAILY Review of Systems Except as stated in HPI: all other systems reviewed are Neg Physical Exam Narrative GENERAL: Well-nourished and well-developed female patient diaphoretic in moderate amount of pain however no acute distress. SKIN: Warm and dry. HEAD: Normocephalic and atraumatic. EYES: No injection, drainage, or hyphema noted. PERRLA. EOMI. ENT: No nasal drainage noted. Oropharynx is clear. NECK: Supple and the trachea is midline. CARDIOVASCULAR: Regular rate and rhythm. RESPIRATORY: Breath sounds are equal bilaterally with no accessory muscle use, wheezing, rhonchi, or crackles. GASTROINTESTINAL: Epigastric, right upper quadrant and left upper quadrant tenderness to palpation. Negative McBurney's point. Abdomen is soft and nondistended. MUSCULOSKELETAL: No obvious deformities, swelling, cyanosis, or ecchymosis is present throughout the upper and lower extremities. Patient has full range of motion without any signs of neurovascular compromise. NEUROLOGICAL: Awake, alert, and oriented. Normal speech and gait. Cranial nerves are grossly intact. Data Data Last Documented VS Vital Signs Date Time Temp Pulse Resp B/P Pulse Ox O2 Delivery O2 Flow Rate FiO2 01/17/17 20:20 110 21 120/76 100 Nasal Cannula 2 01/17/17 19:02 98.8 Orders Complete Blood Count With Diff (01/17/17 18:12) Comprehensive Metabolic Panel (01/17/17 18:12) Lipase (01/17/17 18:12) Lactic Acid (01/17/17 18:12) Prothrombin Time / Inr (Pt) (01/17/17 18:12) Act Partial Throm Time (Ptt) (01/17/17 18:12) Iv Access Insert/Monitor (01/17/17 18:12) Ecg Monitoring (01/17/17 18:12) Oximetry (01/17/17 18:12) Sodium Chloride 0.9% Flush (Ns Flush) (01/17/17 18:15) Electrocardiogram (01/17/17 18:12) B-Type Natriuretic Peptide (01/17/17 18:12) Troponin I (01/17/17 18:12) Chest, Single Ap (01/17/17 18:12) Ct Abd/Pel W/O Iv Contrast (01/17/17 18:21) Morphine Inj (Morphine Inj) (01/17/17 18:30) Ondansetron Inj (Zofran Inj) (01/17/17 18:30) Aztreonam Inj (Azactam Inj) (01/17/17 20:30) Azithromycin Inj (Zithromax Inj) (01/17/17 20:30) Admit Order (Ed Use Only) (01/17/17 20:42) Vancomycin Consult Pharmacy (Vancomycin (01/17/17 20:45) Aztreonam Inj (Azactam Inj) (01/18/17 09:00) Azithromycin Inj (Zithromax Inj) (01/18/17 21:00) Consult Nephrology (01/17/17 ) Admit To Inpatient (01/17/17 ) Vital Signs (Adult) Q4H (01/17/17 20:37) Activity Oob With Assistance (01/17/17 20:37) Locator / Telemetry .CONTINUOUS (01/17/17 20:37) Intake + Output DIA.QSHIFT (01/17/17 20:37) Diet Heart Healthy (01/18/17 Breakfast) Sodium Chlor 0.9% 1000 Ml Inj (Ns 1000 M (01/17/17 20:45) Sodium Chloride 0.9% Flush (Ns Flush) (01/17/17 20:45) Sodium Chloride 0.9% Flush (Ns Flush) (01/17/17 21:00) Ondansetron Inj (Zofran Inj) (01/17/17 20:45) Bisacodyl Supp (Dulcolax Supp) (01/17/17 20:45) Comprehensive Metabolic Panel (01/18/17 06:00) Complete Blood Count With Diff (01/18/17 06:00) Scd Bilateral/Knee High DIA.BID (01/17/17 20:37) Song Bilateral/Knee High DIA.QSHIFT (01/17/17 20:37) Acetaminophen (Tylenol) (01/17/17 20:45) Morphine Inj (Morphine Inj) (01/17/17 20:45) Inpatient Certification (01/17/17 ) Calcium Acetate (Phoslo) (01/18/17 09:00) Clopidogrel (Plavix) (01/18/17 09:00) Escitalopram (Lexapro) (01/18/17 09:00) Pantoprazole (Protonix) (01/18/17 09:00) Pravastatin (Pravachol) (01/18/17 09:00) (Nf) Cinacalcet (Sensipar) (01/18/17 09:00) Ondansetron Inj (Zofran Inj) (01/17/17 20:45) Labs Laboratory Tests Test 01/17/17 18:46 White Blood Count 9.0 TH/MM3 Red Blood Count 3.62 MIL/MM3 Hemoglobin 11.4 GM/DL Hematocrit 35.2 % Mean Corpuscular Volume 97.1 FL Mean Corpuscular Hemoglobin 31.6 PG Mean Corpuscular Hemoglobin 32.5 % Concent Red Cell Distribution Width 18.5 % Platelet Count 254 TH/MM3 Mean Platelet Volume 8.8 FL Neutrophils (%) (Auto) 69.7 % Lymphocytes (%) (Auto) 18.8 % Monocytes (%) (Auto) 6.3 % Eosinophils (%) (Auto) 4.5 % Basophils (%) (Auto) 0.7 % Neutrophils # (Auto) 6.3 TH/MM3 Lymphocytes # (Auto) 1.7 TH/MM3 Monocytes # (Auto) 0.6 TH/MM3 Eosinophils # (Auto) 0.4 TH/MM3 Basophils # (Auto) 0.1 TH/MM3 CBC Comment DIFF FINAL Differential Comment Prothrombin Time 10.9 SEC Prothromb Time International 1.0 RATIO Ratio Activated Partial 23.2 SEC Thromboplast Time Sodium Level 139 MEQ/L Potassium Level 4.1 MEQ/L Chloride Level 101 MEQ/L Carbon Dioxide Level 24.8 MEQ/L Anion Gap 13 MEQ/L Blood Urea Nitrogen 27 MG/DL Creatinine 5.98 MG/DL Estimat Glomerular Filtration 9 ML/MIN Rate Random Glucose 148 MG/DL Lactic Acid Level 2.9 mmol/L Calcium Level 9.2 MG/DL Total Bilirubin 0.5 MG/DL Aspartate Amino Transf 31 U/L (AST/SGOT) Alanine Aminotransferase 23 U/L (ALT/SGPT) Alkaline Phosphatase 246 U/L Troponin I 0.03 NG/ML B-Type Natriuretic Peptide 201 PG/ML Total Protein 8.1 GM/DL Albumin 3.4 GM/DL Lipase 89 U/L MDM Medical Decision Making Medical Screen Exam Complete: Yes Emergency Medical Condition: Yes Differential Diagnosis Colitis versus cholecystitis versus fluid overload versus gastritis versus ACS Narrative Course 56-year-old female presents to the emergency department for evaluation of epigastric abdominal pain, shortness breath, nausea, vomiting, diaphoresis. Patient is afebrile. She is tachycardic with a heart rate of 123 bpm. Initially per EMS she was hypotensive systolic 70s. She does appear short of breath and has some epigastric tenderness. Otherwise physical examination is unremarkable. EKG shows sinus tachycardia with a ventricular rate of 128 bpm, no acute ST elevations or depressions. IV access is obtained, labs drawn and sent. Patient is placed on cardiac telemetry with pulse oximetry monitoring. CBC shows mild anemia with hemoglobin of 11.4, otherwise unremarkable. CMP shows elevated creatinine of 5.98, BUN 27, GFR 9 consistent with end-stage renal disease. Troponin is 0.03. Lactic acid is elevated at 2.9. Chest x-ray shows bilateral pulmonary infiltrates. CT of the abdomen and pelvis without IV contrast shows tiny calcifications within both kidneys consistent with nonobstructing calculi and/or vascular calcifications, bilateral renal cysts, mild hepatomegaly, cholelithiasis, groundglass infiltrates in both lungs, degenerative changes throughout the lumbar spine. Patient has been given gentle hydration with IV fluids and her heart rate has remained around 124 bpm. Blood pressure is now 120/76. She meets sepsis criteria with tachycardia, hypotension, elevated lactic acid and source of pneumonia. She'll be treated for hospital-acquired pneumonia with Azactam and Zithromax due to recent hospital admission. Patient will be admitted to medicine service. I discussed the case with my attending physician Dr. Rivera who is aware of the patients history, physical examination findings, and treatment plan. Physician Communication Physician Communication I spoke with Dr. Child [facility] who agrees to admit the patient to her service. Diagnosis Primary Impression: Sepsis Qualified Code: A41.9 - Sepsis, due to unspecified organism Additional Impression: Hospital-acquired pneumonia Admitting Information Admitting Physician Requests: Admit Angie Elaine Jan 17, 2017 18:14
[2017-01-17] MEDS ORDERED: MORPHINE SULFATE 4 MG/ML INJ IV PUSH ONE (18:30)
[2017-01-17] MEDS ORDERED: ONDANSETRON HCL 4 MG/2 ML VIAL IVP ONE (18:30)
--- NOTE | 2017-01-17 18:48 | RADRPT ---
EXAM DATE/TIME: 01/17/2017 18:14 [facility] COMPARISON: CHEST SINGLE AP, August 27, 2016, 5:29. INDICATIONS : Shortness of breath, abdominal pain starting today MEDICAL HISTORY : Hypertension. Renal failure, chronic. Diabetes mellitus type II. SURGICAL HISTORY : Appendectomy. section. ENCOUNTER: Initial ACUITY: 1 day PAIN SCORE: 0/10 LOCATION: Bilateral chest FINDINGS: The heart remains enlarged. There has been slight interval improvement of the bilateral pulmonary in filtrates consistent with possible improved congestion or pneumonia. Degenerative changes are noted throughout the thoracic spine. CONCLUSION: 1. Slight interval improvement of the bilateral pulmonary infiltrates consistent with improved pulmon ofelia vascular congestion versus pneumonia. Clinical correlation is recommended. 2. Cardiomegaly. 3. Degenerative changes throughout the thoracic spine. Daren Martin MD on January 17, 2017 at 18:41 Board Certified Radiologist. This report was verified electronically.
[2017-01-17 19:02] VITALS: BP 102/68; PULSE 123; RESP 22; TEMP 98.8; O2SAT 97
[2017-01-17 19:05] VITALS: O2SAT 99
[2017-01-17 19:06] LABS: AUTOMATED NEUTROPHIL # 6.3 TH/MM3 (1.8-7.7); BASOPHIL # 0.1 TH/MM3 (0-0.2); BASOPHIL % 0.7 % (0.0-2.0); EOSINOPHIL # 0.4 TH/MM3 (0-0.4); EOSINOPHIL % 4.5 % (0.0-4.0); HEMATOCRIT 35.2 % (35.0-46.0); HEMO FLAGS DIFF FINAL; LYMPH % 18.8 % (9.0-44.0); LYMPHOCYTE # 1.7 TH/MM3 (1.0-4.8); MEAN CELL VOLUME 97.1 FL (80.0-100.0); MEAN CORPUSCULAR HEMOGLOBIN 31.6 PG (27.0-34.0); MEAN CORPUSCULAR HGB CONC 32.5 % (32.0-36.0); MONO % 6.3 % (0.0-8.0); NEUT % 69.7 % (16.0-70.0); PLATELET COUNT 254 TH/MM3 (150-450); RED BLOOD COUNT 3.62 MIL/MM3 (4.00-5.30); RED CELL DISTRIBUTION WIDTH 18.5 % (11.6-17.2)
[2017-01-17 19:12] LABS: APTT (PATIENT) 23.2 SEC (24.3-30.1); PROTHROMBIN TIME - PATIENT 10.9 SEC (9.8-11.6)
[2017-01-17 19:39] LABS: ALKALINE PHOSPHATASE 246 U/L (45-117); ALT (GPT) 23 U/L (10-53); ANION GAP 13 MEQ/L (5-15); AST (GOT) 31 U/L (15-37); BICARBONATE 24.8 MEQ/L (21.0-32.0); BLOOD UREA NITROGEN 27 MG/DL (7-18); CHLORIDE 101 MEQ/L (98-107); GLOMERULAR FILTRATION RATE 9 ML/MIN (>89); SODIUM (NA) 139 MEQ/L (136-145); TOTAL BILIRUBIN ADULT 0.5 MG/DL (0.2-1.0)
[2017-01-17 19:44] LABS: POTASSIUM 4.1 MEQ/L (3.5-5.1)
--- NOTE | 2017-01-17 20:04 | RADRPT ---
EXAM DATE/TIME: 01/17/2017 19:33 [facility] COMPARISON: CT ABDOMEN & PELVIS W/O CONTRAST, August 25, 2016, 12:59. INDICATIONS : Abdominal pain. ORAL CONTRAST: No oral contrast ingested. RADIATION DOSE: 19.30 CTDIvol (mGy) MEDICAL HISTORY : Renal failure, chronic. Cardiovascular disease Diabetes mellitus type 2. Hypertension SURGICAL HISTORY : Appendectomy. section. ENCOUNTER: Initial ACUITY: 2 days PAIN SCALE: 10/10 LOCATION: Abdomen TECHNIQUE: Volumetric scanning of the abdomen and pelvis was performed. Using automated exposure control and ad justment of the mA and/or kV according to patient size, radiation dose was kept as low as reasonably achievable to obtain optimal diagnostic quality images. FINDINGS: The liver is mildly enlarged. There are faintly calcified gallstones within the gallbladder. The sp papo is normal. Evaluation of the solid organs of the abdomen is limited by the lack of intravenous contrast. There are tiny calcifications within both kidneys consistent with nonobstructing calculi a nd/or vascular calcifications. There are scattered bilateral renal cysts with the largest on the righ t measuring 2.1 cm. There is no hydronephrosis of either kidney. The adrenal glands are normal bilat erally. The abdominal aorta is calcified but is not aneurysmally dilated. The inferior vena cava i s normal. There is no paraaortic, retroperitoneal or mesenteric lymphadenopathy. The urinary bladder is unremarkable. The uterus is unremarkable. Degenerative changes are noted throughout the thoracolu mbar spine. Ground glass infiltrates are noted within the lung bases and are chronic. CONCLUSION: 1. Multiple tiny calcifications within both kidneys consistent with nonobstructing calculi and/or vas cular calcifications. 2. Multiple bilateral renal cysts. 3. Mild hepatomegaly. 4. Cholelithiasis. 5. Chronic ground glass infiltrates of both lungs. 6. Degenerative changes throughout the thoracolumbar spine. Daren Martin MD on January 17, 2017 at 19:43 Board Certified Radiologist. This report was verified electronically.
[2017-01-17 20:20] VITALS: BP 120/76; PULSE 110; RESP 21; O2SAT 100
[2017-01-17] MEDS ORDERED: AZTREONAM INJ 2,000 MG in SODIUM CHLORIDE 0.9% INJ 100 ML IV ONE (20:30)
[2017-01-17] MEDS ORDERED: AZITHROMYCIN INJ 500 MG in SODIUM CHLOR 0.9% 250 ML INJ 250 ML IV ONE (20:30)
--- NOTE | 2017-01-17 20:44 | HHI.HP ---
HPI Service [facility] Primary Care Physician Juma Thomson MD Admission Diagnosis Sepsis, Hospital Acquired Pneumonia Diagnoses: (1) Sepsis Diagnosis: Principal (2) PNA (pneumonia) Diagnosis: Principal (3) Hypotension Diagnosis: Principal (4) ESRD (end stage renal disease) Diagnosis: Principal Travel History International Travel<30 Days: No Contact w/Intl Traveler <30 Da: No Traveled to Known Affected Are: No History of Present Illness This is a 56-year-old female with a PMH of HTN, Anxiety, Depression, Hyperlipidemia, CHF (Echo 01/03/17 w/ EF 55-60%), Legally Blind, DM (Hgb A1c 5.1 on 01/02/17) and ESRD on HD M/W/ who presented to the ER w/ complaints of abdominal pain, nausea and vomiting. States she went to HD this morning as usual, after dialysis states she wasn't feeling well, shortly afterwards developed abdominal pain, nausea and vomiting. Denies fever, chills or diarrhea. Upon EMS arrival, BP noted to be 70's systolic, s/p IVF w/ improvement. States 3L removed during HD which is her norm. Recent admit 01/02- 01/03/17 as Stroke Alert w/ Acute Encephalopathy secondary to uncontrolled HTN, stabilized at time of dc, discharged w/ C for PT. BP currently 120/76, HR 110 , O2 sat 100% on 2L NC, Afebrile. WBC normal. Creatinine 5.98. Lactic Acid 2.9. CXR with slight improvement of bilateral infiltrates, vascular congestion versus pneumonia. CT Abd/Pelvis w/ multiple tiny calcifications in bilateral kidneys consistent with nonobstructing calculi and cholelithiasis, no other acute changes. S/p Blood Cultures, Zithro/Azactam in ER. Review of Systems Except as stated in HPI: all other systems reviewed are Neg ROS: 14 point review of systems otherwise negative. Past Family Social History Past Medical History PMH: HTN, Anxiety, Depression, Hyperlipidemia, CHF (Echo 01/03/17 w/ EF 55-60%) , Legally Blind, DM (Hgb A1c 5.1 on 01/02/17) and ESRD on HD M/W/F Past Surgical History PAST SURGICAL HISTORY: Appendectomy, , Bilateral Cataract Surgery, LUE AV Shunt Allergies: Coded Allergies: Linezolid (Verified Allergy, Severe, VOMITING, 01/17/17) Percocet (Verified Allergy, Severe, VOMITING, 01/17/17) Zocor (Verified Allergy, Severe, VOMITING, 01/17/17) Zosyn (Verified Allergy, Severe, VOMITING, 01/17/17) Family History PAST FAMILY HISTORY: Reviewed. No h/o DM or CAD Social History PAST SOCIAL HISTORY: Negative for alcohol, tobacco or drugs. Physical Exam Vital Signs Vital Signs Date Time Temp Pulse Resp B/P Pulse Ox O2 Delivery O2 Flow Rate FiO2 01/17/17 20:20 110 21 120/76 100 Nasal Cannula 2 01/17/17 19:07 18 01/17/17 19:05 99 Room Air 01/17/17 19:02 98.8 123 22 102/68 97 Physical Exam PE: GENERAL: Pleasant middle-aged black female in no acute distress. HEENT: PERRLA, EOMI. No scleral icterus or conjunctival pallor. No lid lag or facial droop. CARDIOVASCULAR: Regular rate and rhythm. No obvious murmurs to auscultation. No chest tenderness to palpation. RESPIRATORY: No obvious rhonchi or wheezing. Clear to auscultation. Breath sounds equal bilaterally. GASTROINTESTINAL: Abdomen soft, mild generalized tenderness to palpation, nondistended. BS normal. MUSCULOSKELETAL: Extremities without clubbing, cyanosis, or edema. No obvious deformities. NEUROLOGICAL: Awake, alert and oriented x4. No focal neurologic deficits. Moving both upper and lower extremities spontaneously. Laboratory Laboratory Tests Test 01/17/17 18:46 White Blood Count 9.0 Red Blood Count 3.62 Hemoglobin 11.4 Hematocrit 35.2 Mean Corpuscular Volume 97.1 Mean Corpuscular Hemoglobin 31.6 Mean Corpuscular Hemoglobin 32.5 Concent Red Cell Distribution Width 18.5 Platelet Count 254 Mean Platelet Volume 8.8 Neutrophils (%) (Auto) 69.7 Lymphocytes (%) (Auto) 18.8 Monocytes (%) (Auto) 6.3 Eosinophils (%) (Auto) 4.5 Basophils (%) (Auto) 0.7 Neutrophils # (Auto) 6.3 Lymphocytes # (Auto) 1.7 Monocytes # (Auto) 0.6 Eosinophils # (Auto) 0.4 Basophils # (Auto) 0.1 CBC Comment DIFF FINAL Differential Comment Prothrombin Time 10.9 Prothromb Time International 1.0 Ratio Activated Partial 23.2 Thromboplast Time Sodium Level 139 Potassium Level 4.1 Chloride Level 101 Carbon Dioxide Level 24.8 Anion Gap 13 Blood Urea Nitrogen 27 Creatinine 5.98 Estimat Glomerular Filtration 9 Rate Random Glucose 148 Lactic Acid Level 2.9 Calcium Level 9.2 Total Bilirubin 0.5 Aspartate Amino Transf 31 (AST/SGOT) Alanine Aminotransferase 23 (ALT/SGPT) Alkaline Phosphatase 246 Troponin I 0.03 B-Type Natriuretic Peptide 201 Total Protein 8.1 Albumin 3.4 Lipase 89 Result Diagram: 01/17/17184501/17/171845 Assessment and Plan Problem List: (1) Sepsis ICD Code: A41.9 Status: Acute (2) PNA (pneumonia) ICD Code: J18.9 Status: Acute (3) Hypotension ICD Code: I95.9 Status: Acute (4) ESRD (end stage renal disease) ICD Code: N18.6 Status: Acute Assessment and Plan A/P: 1. Sepsis: HR 123, RR 20, Lactic Acid 2.9, Source-PNA. S/p Blood Cultures, Zithro/Azactam in ER, follow up cultures, continue IV Abx. IVF, however caution w/ ESRD. Check repeat Lactic Acid. 2. PNA: CXR w/ bilateral infiltrates mildly improved from previous, congestion vs pneumonia, images reviewed by me. S/p IV Abx as above, will continue w/ broad-spectrum coverage for HCAP. Follow up cultures. 3. Hypotension: Resolved. BP 70's on arrival, s/p gentle hydration, BP currently 120's systolic. Will monitor, hold BP meds for now. 4. ESRD on HD: Follows w/ Dr. Ramirez as outpatient, recently seen by Dr. Suggs on last admit. Will consult for continued HD as scheduled. 5. DVT Prophylaxis: SCD/Teds. 6. Social work for d/c planning as needed. 7. Case discussed w/ ER physician at length Physician Certification 2 Midnight Certification Type: Admission for Inpatient Services Order for Inpatient Services The services are ordered in accordance with Medicare regulations or non- Medicare payer requirements, as applicable. In the case of services not specified as inpatient-only, they are appropriately provided as inpatient services in accordance with the 2-midnight benchmark. Estimated LOS (days): 2 days is the estimated time the patient will need to remain in the hospital, assuming treatment plan goals are met and no additional complications. Post-Hospital Plan: Not yet determined Problem Qualifiers (1) Sepsis: Qualified Code: A41.9 - Sepsis, due to unspecified organism Arleth Child MD Jan 17, 2017 20:44
[2017-01-17] MEDS ORDERED: ACETAMINOPHEN 325 MG TAB PO PRN (20:45)
[2017-01-17] MEDS ORDERED: SODIUM CHLOR 0.9% 1000 ML INJ 1,000 ML IV ONE (20:45)
[2017-01-17] MEDS ORDERED: ONDANSETRON HCL 4 MG/2 ML VIAL IVP PRN (20:45)
[2017-01-17] MEDS ORDERED: BISACODYL 10 MG SUPP RECTAL PRN (20:45)
[2017-01-17] MEDS ORDERED: ONDANSETRON HCL 4 MG/2 ML VIAL IV PUSH ONE (20:45)
[2017-01-17] MEDS ORDERED: Vancomycin Consult Pharmacy 1 EA OTHER SCH (20:45)
[2017-01-17] MEDS: SODIUM CHLORIDE 0.9% FLUSH 10 ML FLUSH IV FLUSH SCH (21:00)
[2017-01-17 21:50] VITALS: BP 86/46; PULSE 119; RESP 26; TEMP 98.2; O2SAT 99
[2017-01-17] MEDS ORDERED: VANCOMYCIN INJ 1,500 MG in SODIUM CHLORID 0.9% 500 ML INJ 500 ML IV ONE (22:00)
[2017-01-17 22:18] VITALS: PULSE 120
[2017-01-17] MEDS ORDERED: SODIUM CHLOR 0.9% 250 ML INJ 250 ML IV ONE (23:15)
[2017-01-18] VITALS (8 sets, daily range): BP systolic 87–106; BP diastolic 49–73; PULSE 107–117; RESP 18–26; TEMP 97.7–98.7; O2SAT 9–100
[2017-01-18] MEDS: AZTREONAM INJ 1,000 MG in SODIUM CHLORIDE 0.9% INJ 100 ML IV SCH ×2 (08:17→20:15)
[2017-01-18] MEDS: PRAVASTATIN SOD 80 MG TAB PO SCH (08:17)
[2017-01-18] MEDS: CINACALCET HYDROCHLORIDE 30 MG TAB PO SCH (08:17)
[2017-01-18] MEDS: CLOPIDOGREL 75 MG TAB PO SCH (08:17)
[2017-01-18] MEDS: SODIUM CHLORIDE 0.9% FLUSH 10 ML FLUSH IV FLUSH SCH ×2 (08:17→20:16)
[2017-01-18] MEDS: CALCIUM ACETATE 667 MG CAP PO SCH ×3 (08:18→17:22)
[2017-01-18] MEDS: PANTOPRAZOLE SOD 40 MG DELAYED RELEASE TAB PO SCH (08:18)
[2017-01-18] MEDS: ESCITALOPRAM OXALATE 10 MG TAB PO SCH (08:18)
[2017-01-18 09:31] LABS: AUTOMATED NEUTROPHIL # 4.8 TH/MM3 (1.8-7.7); BASOPHIL # 0.1 TH/MM3 (0-0.2); BASOPHIL % 0.7 % (0.0-2.0); EOSINOPHIL # 0.5 TH/MM3 (0-0.4); EOSINOPHIL % 6.1 % (0.0-4.0); HEMATOCRIT 29.6 % (35.0-46.0); HEMO FLAGS DIFF FINAL; LYMPH % 18.7 % (9.0-44.0); LYMPHOCYTE # 1.4 TH/MM3 (1.0-4.8); MEAN CELL VOLUME 98.3 FL (80.0-100.0); MEAN CORPUSCULAR HEMOGLOBIN 31.3 PG (27.0-34.0); MEAN CORPUSCULAR HGB CONC 31.9 % (32.0-36.0); MONO % 10.2 % (0.0-8.0); NEUT % 64.3 % (16.0-70.0); PLATELET COUNT 202 TH/MM3 (150-450); RED BLOOD COUNT 3.01 MIL/MM3 (4.00-5.30); WHITE BLOOD COUNT 7.4 TH/MM3 (4.0-11.0)
[2017-01-18 10:58] LABS: ALT (GPT) 18 U/L (10-53); ANION GAP 8 MEQ/L (5-15); AST (GOT) 14 U/L (15-37); BLOOD UREA NITROGEN 34 MG/DL (7-18); CHLORIDE 105 MEQ/L (98-107); GLOMERULAR FILTRATION RATE 8 ML/MIN (>89); POTASSIUM 4.4 MEQ/L (3.5-5.1); SODIUM (NA) 141 MEQ/L (136-145)
[2017-01-18 11:01] LABS: ALKALINE PHOSPHATASE 205 U/L (45-117); TOTAL BILIRUBIN ADULT 0.4 MG/DL (0.2-1.0)
--- NOTE | 2017-01-18 12:10 | HHI.PR ---
Subjective Remarks Patient seen and examined this am. Some tachycardia this am, BP otherwise stable. Afebrile. She denies CP or SOB. She denies cough She states she feels much better. Objective Vital Signs Date Time Temp Pulse Resp B/P Pulse Ox O2 Delivery O2 Flow Rate FiO2 01/18/17 08:00 97.9 110 20 106/57 100 01/18/17 04:00 98.7 113 24 100/55 97 01/18/17 00:00 Nasal Cannula 2.00 01/18/17 00:00 98.7 117 26 87/50 98 01/17/17 22:18 120 01/17/17 21:50 98.2 119 26 86/46 99 01/17/17 21:24 01/17/17 20:20 110 21 120/76 100 Nasal Cannula 2 01/17/17 19:07 18 01/17/17 19:05 99 Room Air 01/17/17 19:02 98.8 123 22 102/68 97 I/O 01/17/17 01/17/17 01/17/17 01/18/17 01/18/17 01/18/17 07:00 15:00 23:00 07:00 15:00 23:00 Intake Total 120 ml Balance 120 ml Intake Oral 120 ml # Voids 0 # Bowel Movements 0 Result Diagram: 01/18/1781801/18/17818 Imaging Last Impressions Abdomen/Pelvis CT 01/17/171820 Signed Impressions: Service Date/Time: Tuesday, January 17, 2017 19:33 - CONCLUSION: 1. Multiple tiny calcifications within both kidneys consistent with nonobstructing calculi and/ or vascular calcifications. 2. Multiple bilateral renal cysts. 3. Mild hepatomegaly. 4. Cholelithiasis. 5. Chronic ground glass infiltrates of both lungs. 6. Degenerative changes throughout the thoracolumbar spine. Daren Martin MD Chest X-Ray 01/17/171811 Signed Impressions: Service Date/Time: Tuesday, January 17, 2017 18:14 - CONCLUSION: 1. Slight interval improvement of the bilateral pulmonary infiltrates consistent with improved pulmonary vascular congestion versus pneumonia. Clinical correlation is recommended. 2. Cardiomegaly. 3. Degenerative changes throughout the thoracic spine. Daren Martin MD Other Results GENERAL: well appearing, resting comfortably in bed NAD SKIN: Warm and dry. HEAD: Normocephalic. EYES: No scleral icterus. No injection or drainage. NECK: Supple, trachea midline. No JVD or lymphadenopathy. CARDIOVASCULAR: Regular rate and rhythm without murmurs, gallops, or rubs. RESPIRATORY: Breath sounds equal bilaterally. No accessory muscle use. GASTROINTESTINAL: Abdomen soft, non-tender, nondistended. MUSCULOSKELETAL: No cyanosis, or edema. BACK: Nontender without obvious deformity. No CVA tenderness. A/P Problem List: (1) Anemia ICD Code: D64.9 (2) Hypertension ICD Code: I10 (3) DM type 2 with diabetic peripheral neuropathy ICD Code: E11.42 (4) Hospital-acquired pneumonia ICD Code: J18.9 (5) ESRD (end stage renal disease) ICD Code: N18.6 Assessment and Plan 56 yo female presents with ESRD, HTN, CHF, HLD, legally blind, DM presented to ED after dialysis for abd pain, found to be hypotensive and had improvement after fluid resuscitation, subsequently found to have congestion vs. PNA on CXR. 1. Sepsis: met cirteria on admission; HR 120s, lactic acid 2.9, with course likely PNA. Blood cultures pending, currently on azactam and azithromycin for HCAP. Vitals are essentially normal, lactic acid wnl and she is well appearing. Will repeat CXR, per my read initial CXR is more consistent with congestion vs. PNA 2. PNA: see above. 3. ESRD: HD on last seen by Dr. Suggs, he has been consulted. Dialysis MWFr. 4. Anemia: like secondary to ESRD 5. Depression: continue home lexapro 6. HLD: continue home pravastatin 7. DM: fasting blood sugars acceptable Fluids: hLIV electrolytes: currently wnl Discharge Planning d/c 1- days pending clinical improvement and no issues. Kelin Ramirez MD R3 Jan 18, 2017 12:10
[2017-01-18] MEDS: MORPHINE SULFATE 4 MG/ML INJ IV PRN ×2 (13:14→18:40)
--- NOTE | 2017-01-18 13:14 | MB ---
cc: [facility] DATE OF CONSULTATION: 01/18/2017 REASON FOR CONSULTATION: End-stage renal disease on hemodialysis for management. HISTORY OF PRESENT ILLNESS This is a 56-year-old -[place] female with past medical history of hypertension, diabetes mellitus, end-stage renal disease on hemodialysis three times per week, Friday, Friday and Friday, history of ischemic heart disease, congestive heart failure, legally blind, who came to the hospital with complaint of nausea and vomiting, abdominal pain and feeling dizzy. I was called to see the patient for the management of dialysis. She has been on hemodialysis Friday, Friday and Friday and has been following with Dr. Suggs. The patient had the dialysis done yesterday and went home. It was finished in the morning. She went home, was feeling dizzy and weak, and her blood pressure was low and she had some nausea, vomiting and abdominal pain. Her nausea and vomiting improved since she has been in the hospital. She has been on nasal cannula right now and she is feeling better with nasal cannula. She was waiting for home oxygen. She denies any history of fever. The patient was diagnosed with pneumonia and was started on antibiotics. Her blood pressure was on the lower side on admission but it has improved now. The lowest recorded was 86/46. PAST MEDICAL HISTORY: 1. Hypertension 2. Ischemic heart disease 3. Diabetes mellitus 4. Hyperlipidemia 5. Anxiety depression 6. Chronic anemia 7. Legal blindness. 8. End-stage renal disease on hemodialysis three times per week. PAST SURGICAL HISTORY 1. History of left arm AV fistula surgery. 2. Appendicectomy 3. section. 4. Cataract surgery. REVIEW OF SYSTEMS The patient has generalized weakness, feeling tired. She has nausea, vomiting and abdominal pain. It is improving now and she has also shortness of breath and feeling dizzy and weak which has also improved. She denies any history of fever at home. There is no history of diarrhea. SOCIAL HISTORY There is no history of smoking, alcoholism. FAMILY HISTORY: Noncontributory. ALLERGIES LINEZOLID, PERCOCET, ZOCOR, ZOSYN. MEDICATIONS Currently she is on the following medications: 1. Plavix 75 mg once a day. 2. Lexapro 10 mg daily. 3. Protonix 40 mg once a day. 4. Pravachol 80 milligrams once a day. 5. Sensipar 60 milligrams daily. 6. Normal saline 50 mL an hour. 7. Aztreonam 1 gram q. 12-hours. 8. Azithromycin 500 mg q. 24-hour. 9. PhosLo 667 mg t.i.d. 10. Zofran as needed. 11. Dulcolax as needed. 12. Morphine as needed. PHYSICAL EXAMINATION: EXAMINATION The patient is awake, alert, not in acute distress. Her last blood pressure is 102/55, temperature 98.3. Oxygen saturation on 2 liters nasal cannula is close to 100%. HEENT: Pupils equal, reacting to light. Nonicteric sclera, conjunctiva pale. Neck: Supple. JVD is not elevated. Lungs: The patient has bilateral decreased air entry with basilar rales and scattered wheezing. Heart: S1-S2 regular. Abdomen: Distended, soft lax. There is no tenderness. Bowel sounds positive. Extremities: She has mild edema in the legs. INVESTIGATIONS: WBC count is 7.4, hemoglobin 9.4, platelet count of 202, sodium 141, potassium 4.4, chloride 105, bicarb 28.0, BUN 34, creatinine 6.8, glucose 113, lactic acid is 1.6, it was 2.9 on admission, AST is 14, ALT is 18, alkaline phosphatase 205, albumin is 3.0, total protein 7.0, INR is 1.0. IMAGING STUDIES The patient had chest x-ray done which shows bilateral pulmonary infiltrates with slight improvement, cardiomegaly, degenerative changes in the spine. CT scan of abdomen and pelvis was done without IV contrast and shows calcification in both kidneys, multiple bilateral renal cysts, hepatomegaly, cholelithiasis. ASSESSMENT/PLAN 1. Possible pneumonia. 2. Hypotension rule-out sepsis. 3. Dehydration. 4. End-stage renal disease on hemodialysis. 5. Diabetes mellitus. 6. Anemia. The patient has been started on antibiotics. Her blood pressure is better. She started eating now. There is no nausea or vomiting. The IV fluids can be stopped. She had her dialysis yesterday. There is no acute urgent need for dialysis. We will observe her during her stay in the hospital and follow the renal panel. Thank you for the consultation. I will follow the patient over the weekend. MD JOSE C Martínez/PARI /12:26 PM /1:00 PM
--- NOTE | 2017-01-18 15:18 | RADRPT ---
EXAM DATE/TIME: 01/18/2017 14:55 [facility] COMPARISON: CHEST PA & LAT, August 22, 2016, 17:19. INDICATIONS : Chest congestion, shortness of breath for 24 hours MEDICAL HISTORY : Hypertension. Renal failure, chronic. Diabetes mellitus type II. SURGICAL HISTORY : Appendectomy. section. ENCOUNTER: Subsequent ACUITY: 1 day PAIN SCORE: 0/10 LOCATION: Bilateral chest FINDINGS: The heart is mildly enlarged and the central interstitial markings are mildly prominent. These findi ngs are very similar to prior examination in August 2016. No focal areas of consolidation. Both h emidiaphragms are obliterated. The osseous structures are intact. CONCLUSION: Cardiomegaly and mild interstitial prominence. No focal air space opacities seen. Benjamin Rodrigues MD on January 18, 2017 at 15:16 Board Certified Radiologist. This report was verified electronically.
[2017-01-18] MEDS: AZITHROMYCIN INJ 500 MG in SODIUM CHLOR 0.9% 250 ML INJ 250 ML IV SCH (20:18)
[2017-01-19] VITALS (7 sets, daily range): BP systolic 105–165; BP diastolic 61–78; PULSE 71–106; RESP 18–20; TEMP 97.3–98.8; O2SAT 97–99
[2017-01-19 08:00] LABS: AUTOMATED NEUTROPHIL # 3.1 TH/MM3 (1.8-7.7); BASOPHIL % 0.6 % (0.0-2.0); EOSINOPHIL # 0.5 TH/MM3 (0-0.4); EOSINOPHIL % 8.7 % (0.0-4.0); HEMATOCRIT 28.6 % (35.0-46.0); HEMO FLAGS DIFF FINAL; LYMPH % 25.4 % (9.0-44.0); LYMPHOCYTE # 1.4 TH/MM3 (1.0-4.8); MEAN CELL VOLUME 98.5 FL (80.0-100.0); MEAN CORPUSCULAR HEMOGLOBIN 31.6 PG (27.0-34.0); MEAN CORPUSCULAR HGB CONC 32.1 % (32.0-36.0); MONO % 10.1 % (0.0-8.0); NEUT % 55.2 % (16.0-70.0); PLATELET COUNT 191 TH/MM3 (150-450); RED BLOOD COUNT 2.91 MIL/MM3 (4.00-5.30); RED CELL DISTRIBUTION WIDTH 18.4 % (11.6-17.2); WHITE BLOOD COUNT 5.6 TH/MM3 (4.0-11.0)
[2017-01-19 08:26] LABS: BICARBONATE 26.8 MEQ/L (21.0-32.0); POTASSIUM 4.8 MEQ/L (3.5-5.1)
[2017-01-19] MEDS: CALCIUM ACETATE 667 MG CAP PO SCH ×3 (09:27→20:04)
[2017-01-19] MEDS: CINACALCET HYDROCHLORIDE 30 MG TAB PO SCH (09:28)
[2017-01-19] MEDS: ESCITALOPRAM OXALATE 10 MG TAB PO SCH (09:28)
[2017-01-19] MEDS: CLOPIDOGREL 75 MG TAB PO SCH (09:28)
[2017-01-19] MEDS: PANTOPRAZOLE SOD 40 MG DELAYED RELEASE TAB PO SCH (09:28)
[2017-01-19] MEDS: PRAVASTATIN SOD 80 MG TAB PO SCH (09:29)
[2017-01-19] MEDS: SODIUM CHLORIDE 0.9% FLUSH 10 ML FLUSH IV FLUSH SCH ×2 (09:29→21:00)
[2017-01-19] MEDS: AZTREONAM INJ 1,000 MG in SODIUM CHLORIDE 0.9% INJ 100 ML IV SCH (09:29)
--- NOTE | 2017-01-19 11:23 | HHI.PR ---
Subjective Remarks Patient seen and examined this am. BP otherwise stable. Afebrile. She denies CP or SOB. She denies cough She states she feels much better. She lives with her boyfriend. No complaints or concerns this am. Objective Vital Signs Date Time Temp Pulse Resp B/P Pulse Ox O2 Delivery O2 Flow Rate FiO2 01/19/17 08:00 97.8 71 20 131/62 98 01/19/17 05:01 98.8 95 18 105/64 99 01/19/17 01:31 97.3 106 20 109/68 99 01/18/17 21:08 98.3 108 20 90/49 100 01/18/17 20:02 107 01/18/17 19:30 Nasal Cannula 2.00 01/18/17 18:01 100 Nasal Cannula 2.00 01/18/17 16:00 97.7 109 20 98/73 100 01/18/17 12:11 Nasal Cannula 2.00 01/18/17 12:00 98.3 110 18 102/55 9 I/O 01/18/17 01/18/17 01/18/17 01/19/17 01/19/17 01/19/17 07:00 15:00 23:00 07:00 15:00 23:00 Intake Total 120 ml 720 ml 830 ml 240 ml Output Total 0 ml Balance 120 ml 720 ml 830 ml 240 ml Intake Oral 120 ml 720 ml 480 ml 240 ml IV Total 350 ml 0 ml Output Urine Total 0 ml # Voids 0 1 1 # Bowel Movements 0 0 0 Result Diagram: 01/19/17 0731 01/19/17 0731 Imaging Last Impressions Chest X-Ray 01/18/17 0000 Signed Impressions: Service Date/Time: Wednesday, January 18, 2017 14:55 - CONCLUSION: Cardiomegaly and mild interstitial prominence. No focal air space opacities seen. Benjamin Rodrigues MD Abdomen/Pelvis CT 01/17/17 1821 Signed Impressions: Service Date/Time: Tuesday, January 17, 2017 19:33 - CONCLUSION: 1. Multiple tiny calcifications within both kidneys consistent with nonobstructing calculi and/ or vascular calcifications. 2. Multiple bilateral renal cysts. 3. Mild hepatomegaly. 4. Cholelithiasis. 5. Chronic ground glass infiltrates of both lungs. 6. Degenerative changes throughout the thoracolumbar spine. Daren Martin MD Objective Remarks GENERAL: well appearing resting comfortably SKIN: Warm and dry. HEAD: Normocephalic. EYES: No scleral icterus. No injection or drainage. NECK: Supple, trachea midline. No JVD or lymphadenopathy. CARDIOVASCULAR: Regular rate and rhythm without murmurs, gallops, or rubs. RESPIRATORY: Breath sounds equal bilaterally. No accessory muscle use. GASTROINTESTINAL: Abdomen soft, non-tender, nondistended. MUSCULOSKELETAL: No cyanosis, or edema. BACK: Nontender without obvious deformity. No CVA tenderness. A/P Problem List: (1) Anemia ICD Code: D64.9 (2) Hypertension ICD Code: I10 (3) DM type 2 with diabetic peripheral neuropathy ICD Code: E11.42 (4) Hospital-acquired pneumonia ICD Code: J18.9 (5) ESRD (end stage renal disease) ICD Code: N18.6 Assessment and Plan 56 yo female presents with ESRD, HTN, CHF, HLD, legally blind, DM presented to ED after dialysis for abd pain, found to be hypotensive and had improvement after fluid resuscitation, subsequently found to have congestion vs. PNA on CXR. 1. Sepsis: met criteria on admission; HR 120s, lactic acid 2.9, unclear source, initially thought to be due to PNA based on CXR at admission. Repeat CXR from yesterday is negative for PNA. Blood cultures pending, currently on azactam and azithromycin for HCAP. Vitals are essentially normal, lactic acid wnl and she is well appearing. She does not make any urine, not able to get UA. 2. PNA: see above. 3. ESRD: HD on last seen by Dr. Suggs, he has been consulted. Dialysis MWFr. 4. Anemia: like secondary to ESRD 5. Depression: continue home lexapro 6. HLD: continue home pravastatin 7. DM: fasting blood sugars acceptable Fluids: hLIV electrolytes: currently wnl Discharge Planning d/c pending negative blood cultures x48 hours, likely tomorrow. Based on her exam and labs, anticipates she can go home tomorrow on azithromycin for 3 more days. Kelin Ramirez MD R3 Jan 19, 2017 11:23
--- NOTE | 2017-01-19 12:52 | HHI.NPPN ---
Subjective History of Present Illness 56-year-old -[place] female with past medical history of hypertension, diabetes mellitus, end-stage renal disease on hemodialysis three times per week, Friday, Friday and Friday, history of ischemic heart disease, congestive heart failure, legally blind, who came to the hospital with complaint of nausea and vomiting, abdominal pain and feeling dizzy. I was called to see the patient for the management of dialysis. Additional Remarks Patient is alert, sitting on the chair, no dizziness, feeling better. Review of Systems General Constitutional: Fatigue Objective Data Data 01/18/17 01/19/17 19:00 07:00 Intake Total 720 ml 1070 ml Output Total 0 ml Balance 720 ml 1070 ml Intake Oral 720 ml 720 ml IV Total 350 ml Output Urine Total 0 ml # Voids 2 # Bowel Movements 0 0 Vital Signs Date Time Temp Pulse Resp B/P Pulse Ox O2 Delivery O2 Flow Rate FiO2 01/19/17 12:00 97.9 75 20 134/61 98 01/19/17 08:00 97.8 71 20 131/62 98 01/19/17 05:01 98.8 95 18 105/64 99 01/19/17 01:31 97.3 106 20 109/68 99 01/18/17 21:08 98.3 108 20 90/49 100 01/18/17 20:02 107 01/18/17 19:30 Nasal Cannula 2.00 01/18/17 18:01 100 Nasal Cannula 2.00 01/18/17 16:00 97.7 109 20 98/73 100 -: 01/19/17 0731 01/19/17 0731 Microbiology 01/19/17 Aerobic Blood Culture, Received Pending 01/19/17 Anaerobic Blood Culture, Received Pending 01/19/17 Aerobic Blood Culture, Received Pending 01/19/17 Anaerobic Blood Culture, Received Pending Physical Exam General Appearance: No Acute Distress, Comfortable Eyes Eye Exam: Pupils Equal Throat Throat Exam: Oral Mucosa [place] & Moist Neck Neck Exam: Neck Supple Pulmonary Resp Exam: Breath Sounds Equal, No Distress, Decreased Bases Cardiology CV Exam: Regular Gastrointestinal/Abdomen GI Exam: Soft, Non-Tender, Bowel Sounds Present Extremeties Extremities Exam: Trace Edema Neurologic Neuro Exam: Alert, Awake Psychiatric Psych Exam: Appropriate Responses Assessment/Plan Assessment Summary: Hypotension, End Stage Renal Disease Problem List: (1) ESRD (end stage renal disease) (2) Anemia (3) DM type 2 with diabetic peripheral neuropathy (4) PNA (pneumonia) (5) Hypotension Plan Patient is feeling better now. The BP is better. Afebrile. Hgb. is stable. Continue antibiotics. HD will be done in AM. Dr. Suggs will follow in AM. Kelsy Prasad MD Jan 19, 2017 12:52
[2017-01-19] MEDS: MORPHINE SULFATE 4 MG/ML INJ IV PRN ×2 (14:53→20:08)
[2017-01-19] MEDS: AZTREONAM INJ 500 MG in SODIUM CHLORIDE 0.9% INJ 100 ML IV SCH (21:01)
[2017-01-19] MEDS: AZITHROMYCIN INJ 500 MG in SODIUM CHLOR 0.9% 250 ML INJ 250 ML IV SCH (21:02)
--- NOTE | 2017-01-19 21:27 | EKG ---
Date Performed: 01/17/2017 Time Performed: 18:21:08 PTAGE: 56 years EKG: SINUS TACHYCARDIA WITH FIRST DEGREE AV BLOCK MODERATE INTRAVENTRICULAR CONDUCTION DELAY ABN ORMAL ECG PREVIOUS TRACING : 01/02/2017 12.26 DOCTOR: Anjelica Liz Interpretating Date/Time 01/19/2017 21:23:17
[2017-01-20] VITALS (7 sets, daily range): BP systolic 129–193; BP diastolic 62–81; PULSE 75–86; RESP 12–20; TEMP 96.8–98.7; O2SAT 90–99
[2017-01-20 08:09] LABS: BICARBONATE 25.5 MEQ/L (21.0-32.0); POTASSIUM 5.4 MEQ/L (3.5-5.1)
[2017-01-20] MEDS: CALCIUM ACETATE 667 MG CAP PO SCH ×3 (09:00→18:09)
[2017-01-20] MEDS ORDERED: HEPARIN SODIUM - IV 10,000 UNITS/10 ML VIAL IVF PRN (09:00)
[2017-01-20] MEDS ORDERED: ONDANSETRON HCL 4 MG/2 ML VIAL IV PRN (09:00)
[2017-01-20] MEDS ORDERED: GELATIN 12 MM/7 MM FOAM TOP PRN (09:00)
[2017-01-20] MEDS ORDERED: diphenhydrAMINE HCL 25 MG CAP PO PRN (09:00)
[2017-01-20] MEDS ORDERED: ACETAMINOPHEN 325 MG TAB PO PRN (09:00)
[2017-01-20] MEDS ORDERED: NITROGLYCERIN 0.4 MG SL 25 TABS/BTL SL PRN (09:00)
[2017-01-20] MEDS ORDERED: EPOETIN ALFA 10,000 UNITS/ML VIAL IV PRN (09:00)
[2017-01-20] MEDS ORDERED: SODIUM CHLOR 0.9% 1000 ML INJ 1,000 ML IV PRN ×3 (09:00)
[2017-01-20] MEDS ORDERED: ALBUMIN HUMAN 25% 25 GM/100 ML BAGP IV PRN (09:00)
[2017-01-20] MEDS ORDERED: GENTAMICIN SULFATE (DIALYSIS USE ONLY) 20 MG/2 ML VIAL IV PRN (09:00)
[2017-01-20] MEDS ORDERED: MANNITOL 12.5 GM/50 ML VIAL IV PRN (09:00)
[2017-01-20] MEDS ORDERED: cloNIDine HCL 0.1 MG TAB PO PRN (09:00)
[2017-01-20] MEDS ORDERED: HEPARIN SODIUM - IV 10,000 UNITS/10 ML VIAL PRN (09:00)
[2017-01-20] MEDS ORDERED: SODIUM CHLORIDE 0.9% FLUSH 10 ML FLUSH IV FLUSH PRN (09:00)
--- NOTE | 2017-01-20 09:23 | HHI.NPPN ---
Subjective General Problems: Hypertension Renal Failure: Chronic, End Stage Renal Disease Interval History Seen during dialysis. She is awake and alert. Denies nausea/vomiting or shortness of breath. (Ladonna Mercedes) Review of Systems General Constitutional: Fatigue General Remarks no complaints today (Ladonna Mercedes) Objective Data Data 01/19/17 01/20/17 19:00 07:00 Intake Total 720 ml 440 ml Balance 720 ml 440 ml Intake Oral 720 ml 240 ml IV Total 200 ml # Voids 0 0 # Bowel Movements 0 Vital Signs Date Time Temp Pulse Resp B/P Pulse Ox O2 Delivery O2 Flow Rate FiO2 01/20/17 04:00 97.9 76 18 153/67 93 01/20/17 00:00 98.0 75 19 129/62 93 01/19/17 20:00 Room Air 01/19/17 20:00 98.2 74 18 165/78 98 01/19/17 16:00 97.8 76 18 140/66 97 01/19/17 12:00 97.9 75 20 134/61 98 (Ladonna Mercedes) -: 01/19/17 0731 01/20/17 0647 Imaging Last 72 hours Impressions Chest X-Ray 01/18/17 0000 Signed Impressions: Service Date/Time: Wednesday, January 18, 2017 14:55 - CONCLUSION: Cardiomegaly and mild interstitial prominence. No focal air space opacities seen. Benjamin Rodrigues MD Abdomen/Pelvis CT 01/17/17 1821 Signed Impressions: Service Date/Time: Tuesday, January 17, 2017 19:33 - CONCLUSION: 1. Multiple tiny calcifications within both kidneys consistent with nonobstructing calculi and/ or vascular calcifications. 2. Multiple bilateral renal cysts. 3. Mild hepatomegaly. 4. Cholelithiasis. 5. Chronic ground glass infiltrates of both lungs. 6. Degenerative changes throughout the thoracolumbar spine. Daren Martin MD Chest X-Ray 01/17/17 1812 Signed Impressions: Service Date/Time: Tuesday, January 17, 2017 18:14 - CONCLUSION: 1. Slight interval improvement of the bilateral pulmonary infiltrates consistent with improved pulmonary vascular congestion versus pneumonia. Clinical correlation is recommended. 2. Cardiomegaly. 3. Degenerative changes throughout the thoracic spine. Daren Martin MD (Ladonna Mercedes) Physical Exam General Appearance: Well Developed, No Acute Distress, Comfortable (Ladonna Mercedes) Eyes Eye Exam: Pupils Equal (Ladonna Mercedes) Throat Throat Exam: Oral Mucosa [place] & Moist (Ladonna Mercedes) Neck Neck Exam: Neck Supple (Ladonna Mercedes) Pulmonary Resp Exam: Breath Sounds Equal, No Distress, Decreased Bases (Ladonna Mercedes) Cardiology CV Exam: Regular, Normal Sinus Rhythm, Good Perfusion (Ladonna Mercedes) Gastrointestinal/Abdomen GI Exam: Soft, Non-Tender, Bowel Sounds Present (Ladonna Mercedes) Musculoskeletal MS Exam: Joints Intact, Normal Tone (Ladonna Mercedes) Integumentary Skin Exam: Clear, Warm, Dry (Ladonna Mercedes) Extremeties Extremities Exam: No Edema, Pedal Pulses Palpable Extremeties Remarks left arm AVF accessed during HD (Ladonna Mercedes) Neurologic Neuro Exam: Alert, Awake, Oriented, Speech Clear, Moving All Extremities ( Ladonna Mercedes) Psychiatric Psych Exam: Appropriate Responses (Ladonna Mercedes) Assessment/Plan Discussed Condition With: Patient Assessment Summary: Anemia of CKD, Hypertension, End Stage Renal Disease Problem List: (1) ESRD (end stage renal disease) Plan: seen during dialysis on a 2K, 400 BFR, goal 3L continue HD stable from renal perspective avoid IVF, gadolinium she has access in left arm that functions well (2) PNA (pneumonia) Plan: negative blood cultures, she is afebrile she is on Zithromax and Aztreonam (3) Anemia Plan: epogen with HD (4) Hypotension Plan: improved, antihypertensives have not yet been resumed (5) Bone disease, metabolic Plan: she is on phoslo also on Sensipar (6) DM type 2 with diabetic peripheral neuropathy Plan: not requiring insulin therapy monitor blood sugar (Ladonna Mercedes) Plan patient was seen and examined. Seen during dialysis. Agree with above assessment and plan. She can be discharged from renal standpoint. (Sai Suggs MD) Ladonna MercedesP Jan 20, 2017 09:22 Sai Sugsg MD Jan 20, 2017 13:59
[2017-01-20] MEDS: PRAVASTATIN SOD 80 MG TAB PO SCH (13:43)
[2017-01-20] MEDS: PANTOPRAZOLE SOD 40 MG DELAYED RELEASE TAB PO SCH (13:43)
[2017-01-20] MEDS: ESCITALOPRAM OXALATE 10 MG TAB PO SCH (13:43)
[2017-01-20] MEDS: CLOPIDOGREL 75 MG TAB PO SCH (13:43)
[2017-01-20] MEDS: CINACALCET HYDROCHLORIDE 30 MG TAB PO SCH (13:44)
[2017-01-20] MEDS: AZTREONAM INJ 500 MG in SODIUM CHLORIDE 0.9% INJ 100 ML IV SCH (13:45)
[2017-01-20] MEDS: SODIUM CHLORIDE 0.9% FLUSH 10 ML FLUSH IV FLUSH SCH ×2 (13:47→21:57)
--- NOTE | 2017-01-20 16:07 | HHI.PR ---
Subjective Remarks f/u for SOB and questionable infection. patient stated SOB has resolved. she stated she feels weak after dialysis but feels like she is almost back to her baseline. she remains afebrile. Objective Vitals Vital Signs Date Time Temp Pulse Resp B/P Pulse Ox O2 Delivery O2 Flow Rate FiO2 01/20/17 12:54 98 21 01/20/17 12:00 96.8 76 20 193/81 99 01/20/17 08:00 Room Air 01/20/17 08:00 97.9 80 20 169/76 91 01/20/17 04:00 97.9 76 18 153/67 93 01/20/17 00:00 98.0 75 19 129/62 93 01/19/17 20:00 Room Air 01/19/17 20:00 98.2 74 18 165/78 98 I/O 01/19/17 01/19/17 01/19/17 01/20/17 01/20/17 01/20/17 07:00 15:00 23:00 07:00 15:00 23:00 Intake Total 240 ml 720 ml 320 ml 120 ml 2 ml Output Total 3000 ml Balance 240 ml 720 ml 320 ml 120 ml -2998 ml Intake Oral 240 ml 720 ml 120 ml 120 ml IV Total 0 ml 200 ml 2 ml Hemodialysis 3000 ml # Voids 1 0 0 0 # Bowel Movements 0 0 Result Diagram: 01/19/17 0731 01/20/17 0647 Objective Remarks GENERAL: in NAD NECK: Supple, trachea midline. No JVD or lymphadenopathy. CARDIOVASCULAR: Regular rate and rhythm without murmurs, gallops, or rubs. RESPIRATORY: Breath sounds equal bilaterally. No accessory muscle use. GASTROINTESTINAL: Abdomen soft, non-tender, nondistended. MUSCULOSKELETAL: No cyanosis, or edema. Medications and IVs Current Medications Sodium Chloride (NS Flush) 2 ml UNSCH PRN IV FLUSH FLUSH AFTER USING IV ACCESS ; Start 01/17/17 at 18:15; Stop 01/17/17 at 21:02; Status DC Morphine Sulfate (Morphine Inj) 4 mg ONCE ONCE IV PUSH Last administered on 20:20; Start 01/17/17 at 18:30; Stop 01/17/17 at 18:31; Status DC Ondansetron HCl 4 mg 4 mg ONCE ONCE IVP Last administered on 01/17/17 19:12; Start 01/17/17 at 18:30; Stop 01/17/17 at 18:31; Status DC Aztreonam 2000 mg/ Sodium Chloride 100 ml @ 200 mls/hr NOW ONCE IV Last administered on 01/17/17 22:17; Start 01/17/17 at 20:30; Stop 01/17/17 at 20:59 ; Status DC Azithromycin 500 mg/Sodium Chloride 250 ml @ 250 mls/hr ONCE ONCE IV Last administered on 01/17/17 20:41; Start 01/17/17 at 20:30; Stop 01/17/17 at 21:29 ; Status DC Pharmacy Profile Note 0 ml @ 0 mls/hr UNSCH OTHER ; Start 01/17/17 at 20:45; Stop 01/20/17 at 09:23; Status DC Aztreonam 1000 mg/ Sodium Chloride 100 ml @ 200 mls/hr Q12H IV Last administered on 01/19/17 09:29; Start 01/18/17 at 09:00; Stop 01/19/17 at 11:26; Status DC Azithromycin 500 mg/Sodium Chloride 250 ml @ 250 mls/hr Q24H IV Last administered on 01/19/17 21:02; Start 01/18/17 at 21:00 Sodium Chloride (NS 1000 ml Inj) 1,000 ml @ 50 mls/hr Q20H ONCE IV Last administered on 01/17/17 22:24; Start 01/17/17 at 20:45; Stop 01/18/17 at 12:30 ; Status DC Sodium Chloride (NS Flush) 2 ml UNSCH PRN IV FLUSH FLUSH AFTER USING IV ACCESS ; Start 01/17/17 at 20:45 Sodium Chloride (NS Flush) 2 ml BID IV FLUSH Last administered on 01/20/17 13: 47; Start 01/17/17 at 21:00 Ondansetron HCl (Zofran Inj) 4 mg Q6H PRN IVP NAUSEA OR VOMITING; Start at 20:45 Bisacodyl (Dulcolax Supp) 10 mg DAILY PRN RECTAL CONSTIPATION; Start 01/17/17 at 20:45 Acetaminophen (Tylenol) 650 mg Q6H PRN PO FEVER/PAIN SCALE 1 TO 2; Start at 20:45 Morphine Sulfate (Morphine Inj) 2 mg Q3H PRN IV Pain 6-10 Last administered on 01/19/17 20:08; Start 01/17/17 at 20:45 Calcium Acetate (Phoslo) 667 mg TID PO Last administered on 01/20/17 13:43; Start 01/18/17 at 09:00 Clopidogrel Bisulfate (Plavix) 75 mg DAILY PO Last administered on 01/20/17 13: 43; Start 01/18/17 at 09:00 Escitalopram Oxalate (Lexapro) 10 mg DAILY PO Last administered on 01/20/17 13: 43; Start 01/18/17 at 09:00 Pantoprazole Sodium (Protonix) 40 mg DAILY PO Last administered on 01/20/17 13: 43; Start 01/18/17 at 09:00 Pravastatin Sodium (Pravachol) 80 mg DAILY PO Last administered on 01/20/17 13: 43; Start 01/18/17 at 09:00 Cinacalcet (Sensipar) 60 mg DAILY PO Last administered on 01/20/17 13:44; Start 01/18/17 at 09:00 Ondansetron HCl 8 mg 8 mg ONCE ONCE IV PUSH Last administered on 01/17/17 20: 56; Start 01/17/17 at 20:45; Stop 01/17/17 at 20:46; Status DC Vancomycin HCl 1500 mg/Sodium Chloride 515 ml @ 250 mls/hr ONCE ONCE IV Last administered on 01/17/17 22:21; Start 01/17/17 at 22:00; Stop 01/18/17 at 00:03 ; Status DC Sodium Chloride 250 ml @ 250 mls/hr BOLUS ONCE IV Last administered on 23:23; Start 01/17/17 at 23:15; Stop 01/18/17 at 00:14; Status DC Aztreonam 500 mg/ Sodium Chloride 100 ml @ 200 mls/hr Q12H IV Last administered on 01/20/17 13:45; Start 01/19/17 at 21:00 Sodium Chloride (NS 1000 ml Inj) 1,000 ml @ 0 mls/hr Q0M PRN IV For Prime & Rinse Back Last administered on 01/20/17 09:24; Start 01/20/17 at 09:00 Heparin Sodium (Porcine) 8000 units 8,000 units UNSCH PRN IVF WITH DIALYSIS; Start 01/20/17 at 09:00 Sodium Chloride 1,000 ml @ 200 mls/hr Q5H PRN IV WITH DIALYSIS; Start 01/20/17 at 09:00 Sodium Chloride (NS 1000 ml Inj) 1,000 ml @ 0 mls/hr Q0M PRN IV WITH DIALYSIS; Start 01/20/17 at 09:00 Mannitol (Mannitol Inj) 12.5 gm UNSCH PRN IV WITH DIALYSIS; Start 01/20/17 at 09 :00 Albumin Human (Albumin 25% Inj) 25 gm UNSCH PRN IV WITH DIALYSIS; Start at 09:00 Sodium Chloride (NS Flush) 5 ml UNSCH PRN IV FLUSH WITH DIALYSIS; Start at 09:00 Heparin Sodium (Porcine) (Heparin Inj) UNSCH PRN .XX WITH DIALYSIS; Start 01/20 at 09:00 Gentamicin Sulfate (Gentamicin (Dialysis) Inj) 20 mg UNSCH PRN IV WITH DIALYSIS ; Start 01/20/17 at 09:00 Ondansetron HCl (Zofran Inj) 4 mg UNSCH PRN IV WITH DIALYSIS; Start 01/20/17 at 09:00 Acetaminophen (Tylenol) 650 mg UNSCH PRN PO for headach, pain, temp > 101F; Start 01/20/17 at 09:00 Diphenhydramine HCl (Benadryl) 25 mg UNSCH PRN PO for hives/itching/anaphylaxis ; Start 01/20/17 at 09:00 Nitroglycerin (Nitrostat Sl) 0.4 mg UNSCH PRN SL CHEST PAIN; Start 01/20/17 at 09:00 Clonidine (Catapres) 0.1 mg UNSCH PRN PO for BP > 180/100 X 2 readings; Start 01/20/17 at 09:00 Epoetin Francisco (Epogen Inj) 10,000 units UNSCH PRN IV WITH DIALYSIS Last administered on 01/20/17 09:25; Start 01/20/17 at 09:00 Gelatin (Gelfoam 12 Mm/7 Mm Top) 1 foam UNSCH PRN TOP SEE LABEL COMMENTS Last administered on 01/20/17 09:25; Start 4/3/17 at 09:00 A/P Problem List: (1) Sepsis ICD Code: A41.9 Status: Acute (2) PNA (pneumonia) ICD Code: J18.9 Status: Acute (3) Hypotension ICD Code: I95.9 Status: Acute (4) ESRD (end stage renal disease) ICD Code: N18.6 Status: Acute Assessment and Plan 56 yo female presents with ESRD, HTN, CHF, HLD, legally blind, DM presented to ED after dialysis for abd pain, found to be hypotensive and had improvement after fluid resuscitation, subsequently found to have congestion vs. PNA on CXR. SIRS -met criteria on admission; HR 120s, lactic acid 2.9 -no source. -based on clinically exam and imaging suggest more of volume overloaded problem than PNA. -d/c azithromycin, vancomycin and aztreonam since there is no source of infection and see how patient does off IV antiviotics. -BCs so far are negative. . ESRD: -on HD . 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 Anemia - like secondary to ESRD -stable. Depression -continue home lexapro HLD - continue home pravastatin DM -continue with current regimen Discharge Planning if cultures are negative for 48 hours and does well off of antibiotics can be d/ c home tomorrow. Problem Qualifiers (1) Sepsis: Qualified Code: A41.9 - Sepsis, due to unspecified organism Alondra Ferrer MD Jan 20, 2017 16:07
[2017-01-20] MEDS: MORPHINE SULFATE 4 MG/ML INJ IV PRN ×2 (16:13→21:57)
[2017-01-21] VITALS (9 sets, daily range): BP systolic 121–189; BP diastolic 58–84; PULSE 55–82; RESP 18–20; TEMP 97.1–98.9; O2SAT 90–100
[2017-01-21 07:15] LABS: HEMATOCRIT 29.4 % (35.0-46.0); MEAN CORPUSCULAR HEMOGLOBIN 31.6 PG (27.0-34.0); MEAN CORPUSCULAR HGB CONC 32.5 % (32.0-36.0); PLATELET COUNT 177 TH/MM3 (150-450); RED BLOOD COUNT 3.03 MIL/MM3 (4.00-5.30); RED CELL DISTRIBUTION WIDTH 19.1 % (11.6-17.2); REVIEW FLAG FINAL; WHITE BLOOD COUNT 5.8 TH/MM3 (4.0-11.0)
[2017-01-21 07:48] LABS: POTASSIUM 4.9 MEQ/L (3.5-5.1)
[2017-01-21] MEDS: CLOPIDOGREL 75 MG TAB PO SCH (08:34)
[2017-01-21] MEDS: CINACALCET HYDROCHLORIDE 30 MG TAB PO SCH (08:34)
[2017-01-21] MEDS: PRAVASTATIN SOD 80 MG TAB PO SCH (08:34)
[2017-01-21] MEDS: PANTOPRAZOLE SOD 40 MG DELAYED RELEASE TAB PO SCH (08:34)
[2017-01-21] MEDS: ESCITALOPRAM OXALATE 10 MG TAB PO SCH (08:34)
[2017-01-21] MEDS: CALCIUM ACETATE 667 MG CAP PO SCH ×3 (08:34→16:59)
[2017-01-21] MEDS: SODIUM CHLORIDE 0.9% FLUSH 10 ML FLUSH IV FLUSH SCH (08:36)
--- NOTE | 2017-01-21 09:42 | HHI.NPPN ---
Subjective General Problems: Hypertension Renal Failure: Chronic, End Stage Renal Disease Interval History Dialyzed yesterday without complication. Sitting on edge of bed. no complaints of shortness of breath (Ladonna Mercedes) Review of Systems General Constitutional: Fatigue General Remarks no complaints today (Ladonna Mercedes) Objective Data Data 01/20/17 01/21/17 19:00 07:00 Intake Total 362 ml Output Total 3000 ml Balance -2638 ml Intake Oral 360 ml IV Total 2 ml Hemodialysis 3000 ml # Voids 0 # Bowel Movements 0 0 Vital Signs Date Time Temp Pulse Resp B/P Pulse Ox O2 Delivery O2 Flow Rate FiO2 01/21/17 08:29 Room Air 01/21/17 08:00 97.4 80 18 170/78 92 01/21/17 05:45 98.4 80 18 189/77 96 01/21/17 00:12 98.6 82 18 182/84 97 01/20/17 22:07 Room Air 01/20/17 20:00 98.7 86 18 171/72 92 01/20/17 16:00 98.5 85 12 160/71 90 01/20/17 12:54 98 21 01/20/17 12:00 96.8 76 20 193/81 99 (Ladonna Mercedes) -: 01/21/17 0624 01/21/17 0624 Physical Exam General Appearance: Well Developed, No Acute Distress, Comfortable (Ladonna Mercedes) Eyes Eye Exam: Pupils Equal (Ladonna Mercedes) Throat Throat Exam: Oral Mucosa [place] & Moist (Ladonna Mercedes) Neck Neck Exam: Neck Supple (Ladonna Mercedes) Pulmonary Resp Exam: Breath Sounds Equal, No Distress, Decreased Bases (Ladonna Mercedes) Cardiology CV Exam: Regular, Normal Sinus Rhythm, Good Perfusion (Ladonna Mercedes) Gastrointestinal/Abdomen GI Exam: Soft, Non-Tender, Bowel Sounds Present (Ladonna Mercedes) Musculoskeletal MS Exam: Joints Intact, Normal Tone (Ladonna Mercedes) Integumentary Skin Exam: Clear, Warm, Dry (Ladonna Mercedes) Extremeties Extremities Exam: No Edema, Pedal Pulses Palpable Extremeties Remarks left arm AVF accessed during HD (Ladonna Mercedes) Neurologic Neuro Exam: Alert, Awake, Oriented, Speech Clear, Moving All Extremities ( Ladonna Mercedes) Psychiatric Psych Exam: Appropriate Responses (Ladonna Mercedes) Assessment/Plan Discussed Condition With: Patient Assessment Summary: Anemia of CKD, Hypertension, End Stage Renal Disease Problem List: (1) ESRD (end stage renal disease) Plan: 3L UF yesterday continue HD stable from renal perspective avoid IVF, gadolinium she has access in left arm that functions well cleared for discharge today from renal perspective (2) PNA (pneumonia) Plan: negative blood cultures, she is afebrile she is on Zithromax and Aztreonam (3) Anemia Plan: epogen with HD (4) Bone disease, metabolic Plan: she is on phoslo also on Sensipar (5) DM type 2 with diabetic peripheral neuropathy Plan: not requiring insulin therapy monitor blood sugar (6) HTN (hypertension) Plan: resume labetalol and losartan (Ladonna Mercedes) Plan patient was seen and examined. She can be discharged from renal standpoint. ( Sai Suggs MD) Ladonna Mercedes Jan 21, 2017 09:42 Sai Suggs MD Jan 21, 2017 14:10
[2017-01-21] MEDS ORDERED: LABETALOL HCL 100 MG TAB PO SCH (09:45)
[2017-01-21] MEDS ORDERED: LOSARTAN 50 MG TAB PO SCH (09:45)
--- NOTE | 2017-01-21 10:04 | HHI.PR ---
Subjective Remarks No much cough. Feels very tired. Some cough, nonproductive. No n/v/d/c. Objective Vitals Vital Signs Date Time Temp Pulse Resp B/P Pulse Ox O2 Delivery O2 Flow Rate FiO2 01/21/17 08:29 Room Air 01/21/17 08:00 97.4 80 18 170/78 92 01/21/17 05:45 98.4 80 18 189/77 96 01/21/17 00:12 98.6 82 18 182/84 97 01/20/17 22:07 Room Air 01/20/17 20:00 98.7 86 18 171/72 92 01/20/17 16:00 98.5 85 12 160/71 90 01/20/17 12:54 98 21 01/20/17 12:00 96.8 76 20 193/81 99 I/O 01/20/17 01/20/17 01/20/17 01/21/17 01/21/17 01/21/17 07:00 15:00 23:00 07:00 15:00 23:00 Intake Total 120 ml 362 ml Output Total 3000 ml Balance 120 ml -2638 ml Intake Oral 120 ml 360 ml IV Total 2 ml Hemodialysis 3000 ml # Voids 0 0 0 # Bowel Movements 0 0 0 Result Diagram: 01/21/17 0624 01/21/17 0624 Imaging Last Impressions Chest X-Ray 01/18/17 0000 Signed Impressions: Service Date/Time: Wednesday, January 18, 2017 14:55 - CONCLUSION: Cardiomegaly and mild interstitial prominence. No focal air space opacities seen. Benjamin Rodrigues MD Abdomen/Pelvis CT 01/17/17 1821 Signed Impressions: Service Date/Time: Tuesday, January 17, 2017 19:33 - CONCLUSION: 1. Multiple tiny calcifications within both kidneys consistent with nonobstructing calculi and/ or vascular calcifications. 2. Multiple bilateral renal cysts. 3. Mild hepatomegaly. 4. Cholelithiasis. 5. Chronic ground glass infiltrates of both lungs. 6. Degenerative changes throughout the thoracolumbar spine. Daren Martin MD Objective Remarks GENERAL: Pleasant 56 yo F obese, well-nourished, well-developed, appears tired SKIN: Warm and dry. HEAD: Atraumatic. Normocephalic. EYES: Pupils equal and round. No scleral icterus. No injection or drainage. ENT: No nasal bleeding or discharge. Mucous membranes pink and moist. NECK: Trachea midline. No JVD. CARDIOVASCULAR: Regular rate and rhythm. RESPIRATORY: No accessory muscle use. Clear to auscultation. Breath sounds equal bilaterally. GASTROINTESTINAL: Abdomen soft, non-tender, nondistended. Hepatic and splenic margins not palpable. MUSCULOSKELETAL: Extremities without clubbing, cyanosis, or edema. No obvious deformities. NEUROLOGICAL: Awake and alert. No obvious cranial nerve deficits. Motor grossly within normal limits. Five out of 5 muscle strength in the arms and legs. Normal speech. PSYCHIATRIC: Appropriate mood and affect; insight and judgment normal. A/P Problem List: (1) Sepsis ICD Code: A41.9 Status: Acute (2) PNA (pneumonia) ICD Code: J18.9 Status: Acute (3) Hypotension ICD Code: I95.9 Status: Acute (4) ESRD (end stage renal disease) ICD Code: N18.6 Status: Acute Assessment and Plan 56 yo female presents with ESRD, HTN, CHF, HLD, legally blind, DM presented to ED after dialysis for abd pain, found to be hypotensive and had improvement after fluid resuscitation, subsequently found to have congestion vs. PNA on CXR. SIRS -met criteria on admission; HR 120s, lactic acid 2.9 -no source. -based on clinically exam and imaging suggest more of volume overloaded problem than PNA. -d/c azithromycin, vancomycin and aztreonam since there is no source of infection and see how patient does off IV antiviotics. -BCs so far are negative. Uncontrolled BP: Continue BP med has HD yesterday. ESRD: -on HD . -Radio [employer] ff. Anemia - like secondary to ESRD -stable. Depression -continue home lexapro HLD - continue home pravastatin DM -continue with current regimen Discharge Planning -cultures are negative for 48 hours, [facility] [place] later today if SBP < 160s Problem Qualifiers (1) Sepsis: Qualified Code: A41.9 - Sepsis, due to unspecified organism Susan Sinclair MD Jan 21, 2017 10:04
[2017-01-21] MEDS: MORPHINE SULFATE 4 MG/ML INJ IV PRN (10:15)
[2017-01-21] MEDS ORDERED: hydrALAZINE HCL 25 MG TAB PO PRN (16:45)
[2017-01-21] MEDS ORDERED: COZA50TA PO (16:47)
--- NOTE | 2017-01-21 16:47 | HHI.DS ---
Discharge Summary Admission Date Jan 17, 2017 at 20:40 Discharge Date: Jan 21, 2017 Admitting Diagnosis Sepsis, Hospital Acquired Pneumonia (1) Sepsis ICD Code: A41.9 Diagnosis: Principal (2) PNA (pneumonia) ICD Code: J18.9 Diagnosis: Secondary (3) Hypotension ICD Code: I95.9 Diagnosis: Secondary (4) ESRD (end stage renal disease) ICD Code: N18.6 Diagnosis: Secondary Procedures none Brief History - From Admission This is a 56-year-old female with a PMH of HTN, Anxiety, Depression, Hyperlipidemia, CHF (Echo 01/03/17 w/ EF 55-60%), Legally Blind, DM (Hgb A1c 5.1 on 01/02/17) and ESRD on HD M/W/F who presented to the ER w/ complaints of abdominal pain, nausea and vomiting. States she went to HD this morning as usual, after dialysis states she wasn't feeling well, shortly afterwards developed abdominal pain, nausea and vomiting. Denies fever, chills or diarrhea. Upon EMS arrival, BP noted to be 70's systolic, s/p IVF w/ improvement. States 3L removed during HD which is her norm. Recent admit 01/02- 01/03/17 as Stroke Alert w/ Acute Encephalopathy secondary to uncontrolled HTN, stabilized at time of dc, discharged w/ [facility] for PT. BP currently 120/76, HR 110 , O2 sat 100% on 2L NC, Afebrile. WBC normal. Creatinine 5.98. Lactic Acid 2.9. CXR with slight improvement of bilateral infiltrates, vascular congestion versus pneumonia. CT Abd/Pelvis w/ multiple tiny calcifications in bilateral kidneys consistent with nonobstructing calculi and cholelithiasis, no other acute changes. S/p Blood Cultures, Zithro/Azactam in ER. CBC/BMP: 01/21/17 0624 01/21/17 0624 Significant Findings Laboratory Tests Test 01/19/17 01/20/17 01/21/17 07:31 06:47 06:24 Red Blood Count 2.91 MIL/MM3 3.03 MIL/MM3 (4.00-5.30) (4.00-5.30) Hemoglobin 9.2 GM/DL 9.6 GM/DL (11.6-15.3) (11.6-15.3) Hematocrit 28.6 % 29.4 % (35.0-46.0) (35.0-46.0) Red Cell Distribution Width 18.4 % 19.1 % (11.6-17.2) (11.6-17.2) Monocytes (%) (Auto) 10.1 % (0.0-8.0) Eosinophils (%) (Auto) 8.7 % (0.0-4.0) Eosinophils # (Auto) 0.5 TH/MM3 (0-0.4) Blood Urea Nitrogen 50 MG/DL (7-18) 68 MG/DL (7-18) 44 MG/DL (7-18) Creatinine 9.28 MG/DL 10.76 MG/DL 8.35 MG/DL (0.50-1.00) (0.50-1.00) (0.50-1.00) Estimat Glomerular Filtration 5 ML/MIN (>89) 4 ML/MIN (>89) 6 ML/MIN (>89) Rate Potassium Level 5.4 MEQ/L (3.5-5.1) Calcium Level 8.4 MG/DL (8.5-10.1) Imaging Last Impressions Chest X-Ray 01/18/17 0000 Signed Impressions: Service Date/Time: Wednesday, January 18, 2017 14:55 - CONCLUSION: Cardiomegaly and mild interstitial prominence. No focal air space opacities seen. Benjamin Rodrigues MD Abdomen/Pelvis CT 01/17/17 1821 Signed Impressions: Service Date/Time: Tuesday, January 17, 2017 19:33 - CONCLUSION: 1. Multiple tiny calcifications within both kidneys consistent with nonobstructing calculi and/ or vascular calcifications. 2. Multiple bilateral renal cysts. 3. Mild hepatomegaly. 4. Cholelithiasis. 5. Chronic ground glass infiltrates of both lungs. 6. Degenerative changes throughout the thoracolumbar spine. Daren Martin MD PE at Discharge GENERAL: Pleasant 56 yo F obese, well-nourished, well-developed, appears tired SKIN: Warm and dry. HEAD: Atraumatic. Normocephalic. EYES: Pupils equal and round. No scleral icterus. No injection or drainage. ENT: No nasal bleeding or discharge. Mucous membranes pink and moist. NECK: Trachea midline. No JVD. CARDIOVASCULAR: Regular rate and rhythm. RESPIRATORY: No accessory muscle use. Clear to auscultation. Breath sounds equal bilaterally. GASTROINTESTINAL: Abdomen soft, non-tender, nondistended. Hepatic and splenic margins not palpable. MUSCULOSKELETAL: Extremities without clubbing, cyanosis, or edema. No obvious deformities. NEUROLOGICAL: Awake and alert. No obvious cranial nerve deficits. Motor grossly within normal limits. Five out of 5 muscle strength in the arms and legs. Normal speech. PSYCHIATRIC: Appropriate mood and affect; insight and judgment normal. Hospital Course 56 yo female presents with ESRD, HTN, CHF, HLD, legally blind, DM presented to ED after dialysis for abd pain, found to be hypotensive and had improvement after fluid resuscitation, subsequently found to have congestion vs. PNA on CXR. SIRS -met criteria on admission; HR 120s, lactic acid 2.9 -no source. -based on clinically exam and imaging suggest more of volume overloaded problem than PNA. -d/c azithromycin, vancomycin and aztreonam since there is no source of infection and see how patient does off IV antiviotics. -BCs so far are negative. Uncontrolled BP: Continue BP med has HD yesterday. ESRD: -on HD . -Gate [employer] ff. Anemia - like secondary to ESRD -stable. Depression -continue home lexapro HLD - continue home pravastatin DM -continue with current regimen Discharge Planning -cultures are negative for 48 hours Patient improved, she was DC home with [facility] to follow up as OP with PCP and consultants Pt Condition on Discharge: Stable Discharge Disposition: Disch w/ Home Health Serv Discharge Time: > 30 minutes Discharge Instructions DIET: Follow Instructions for: Dialysis Diet Activities you can perform: Regular-No Restrictions Follow up Referrals: Nephrology - 3-5 Days PCP Follow-up - 3-5 Days SNF/FPC/ with [facility] New Medications: Losartan (Cozaar) 50 Mg Tab 75 MG PO DAILY Blood Pressure Management #30 TAB Continued Medications: Calcium Acetate (Phosphate Binder) (Calcium Acetate (Phosphate Binder)) 667 Mg Cap 667 MG PO TID renal disease Days 30 Ref 1 CAP Cinacalcet (Sensipar) 60 Mg Tab 60 MG PO DAILY #60 Ref 0 TAB Clopidogrel (Plavix) 75 Mg Tab 75 MG PO DAILY Blood Clot Prevention #30 Ref 0 TAB Escitalopram (Lexapro) 10 Mg Tab 10 MG PO DAILY #30 Ref 0 TAB Labetalol (Labetalol) 200 Mg Tab 200 MG PO BID Blood Pressure Management Ref 0 TAB Metoclopramide (Metoclopramide) 5 Mg Tab 5 MG PO TIDAC Ref 0 TAB Pantoprazole (Pantoprazole) 40 Mg Tab 40 MG PO DAILY gastritis Days 30 Ref 1 TAB Pravastatin (Pravachol) 80 Mg Tab 80 MG PO DAILY Cholesterol Management #30 Ref 0 TAB Discontinued Medications: Losartan (Cozaar) 50 Mg Tab 50 MG PO DAILY Blood Pressure Management #30 Ref 0 TAB Susan Sinclair MD Jan 21, 2017 16:47
--- NOTE | 2017-01-21 16:52 | HHI.FF ---
Face to Face Verification Diagnosis: (1) PNA (pneumonia) (2) Metabolic encephalopathy (3) Bone disease, metabolic (4) SOB (shortness of breath) (5) HTN (hypertension) (6) Anemia (7) ESRD (end stage renal disease) Physical Therapy Order: Evaluate and Treat Home Health Nursing Order: Medical education Signs/symptoms of disease process Medication education-adverse effect Nursing assessment with vital signs I have seen patient Mariza Lovell on 01/21/17. My clinical findings support the need for the requested home health care services because: Ltd mobility - disease progression Patient has SOB I certify that my clinical findings support that this patient is homebound because: Post-op weakness Susan Sinclair MD Jan 21, 2017 16:52
[2017-01-21] MEDS ORDERED: PILL SPLITTER OTHER PRN (17:00)
[2017-01-22] MEDS ORDERED: LOSARTAN 50 MG TAB PO SCH (09:00)
== END 2017-01-21 18:58 | disposition home health service (06) | DRG 871 ==
LOC: NEPA 17:48 → NEDA 20:40 → N04A 21:54
PROVIDERS: ADMIT Hospitalist; ATTEND Hospitalist
PROC: 5A1D00Z (ICD-10-PCS; principal; 2017-01-20)
DX: A41.9 Sepsis, unspecified organism (principal); J18.9 Pneumonia, unspecified organism; I13.2 Hypertensive heart and chronic kidney disease with heart failure and with stage 5 chronic kidney disease, or end stage renal disease; N18.6 End stage renal disease; E11.42 Type 2 diabetes mellitus with diabetic polyneuropathy; E11.22 Type 2 diabetes mellitus with diabetic chronic kidney disease; F32.9 Major depressive disorder, single episode, unspecified; E78.5 Hyperlipidemia, unspecified; F41.9 Anxiety disorder, unspecified; H54.8 Legal blindness, as defined in USA; D63.1 Anemia in chronic kidney disease; I50.9 Heart failure, unspecified; Z99.2 Dependence on renal dialysis; Z79.84 Long term (current) use of oral hypoglycemic drugs
CPT/HCPCS: 71010; 71020; 74176; 80048; 80053; 80202; 82948; 83605; 83690; 83880; 84484; 85025; 85027; 85610; 85730; 87040; 90935; 93005; 96374; 96375; J0456; J2270; J2405; J3370; J7030; J7040; J7050; Q4081

== ENCOUNTER 2017-04-26 18:53 | Observation (INO) | payer MEDICARE, MEDICAID ==
[~2017-04-26] VITALS: Ht 170.2 cm; Wt 80.0 kg
[~2017-04-26 18:53] MED LIST changes: -FURO1TAB61 PO; -PROM25TA5 PO; -TYLETAB34 PO
[2017-04-26 18:58] VITALS: BP 135/74; PULSE 86; RESP 15; TEMP 97.7; O2SAT 100
--- NOTE | 2017-04-26 19:04 | PD ---
HPI Chief Complaint: Chest Pain Time Seen by Provider: 19:03 Travel History International Travel<30 days: No Contact w/Intl Traveler<30days: No Traveled to known affect area: No History of Present Illness HPI 56-year-old female came to the emergency room with history of chest pain and shortness of breath. Patient is blind and also a difficult historian. It was difficult to understand what she was saying. Her is there with her but was not of much help either. Patient has history of end-stage renal disease and gets dialyzed Friday and Friday. She did get her dialysis yesterday. I'm unclear as to the onset of the chest pain or the nature of it. She did point to the left side of her chest. Vital signs were relatively stable. [facility] Past Medical History Narrative Medical List of her past medical, surgical, social and family history is reviewed from the nursing note. Anemia: Yes Arthritis: Yes Asthma: No Autoimmune Disease: No Blood Disorders: Yes (anemia of chronic disease) Anxiety: Yes Depression: Yes Cancer: No Cardiac Catheterization: Yes Cardiovascular Problems: Yes High Cholesterol: Yes Chest Pain: Yes Congestive Heart Failure: Yes Cerebrovascular Accident: No Diabetes: Yes Dialysis: Yes ([facility] FRI/FRI/FRI) Diminished Hearing: No Endocrine: No Gastrointestinal Disorders: Yes Glaucoma: No Genitourinary: Yes Headaches: Yes Hepatitis: No Hiatal Hernia: No Hypertension: Yes Immune Disorder: No Implanted Vascular Access Dvce: Yes (L UPPER ARM AVF) Musculoskeletal: No Neurologic: No Psychiatric: Yes Reproductive: No Respiratory: No Renal Failure: Yes Seizures: No Sickle Cell Disease: No Thyroid Disease: No PNEUMOCCOCAL Vaccine (Year): 2 Menopausal: Yes : 2 Para: 1 Miscarriage: 1 : 0 Past Surgical History Abdominal Surgery: Yes (appendectomy) Appendectomy: Yes Body Medical Devices: left AV fistula Cardiac Surgery: No Section: Yes Ear Surgery: No Endocrine Surgery: No Eye Surgery: Yes (bilateral cataracts removal) Genitourinary Surgery: No Gynecologic Surgery: No Oral Surgery: No Pacemaker: No Thoracic Surgery: No Other Surgery: Yes (LEFT ARM SHUNT PLACEMENT) Social History Alcohol Use: No Tobacco Use: No Substance Use: No Allergies-Medications (Allergen,Severity, Reaction): Coded Allergies: Linezolid (Verified Allergy, Severe, VOMITING, 04/26/17) Percocet (Verified Allergy, Severe, VOMITING, 04/26/17) Zocor (Verified Allergy, Severe, VOMITING, 04/26/17) Zosyn (Verified Allergy, Severe, VOMITING, 04/26/17) Comments List of her allergies reviewed from the nursing note. Reported Meds & Prescriptions Reported Meds & Active Scripts Active Reported Tylenol-Codeine #3 (Acetaminophen-Codeine) 300-30 mg Tab 1 Tab PO HS Nexium (Esomeprazole DR) 40 Mg Capdr 40 Mg PO DAILY Levemir Inj (Insulin Detemir) 1,000 unit/ 10 ML Vial 25 Units SQ HS Do not mix with any other Insulin. Cymbalta DR (Duloxetine HCl) 20 Mg Capdr 20 Mg PO DAILY Eryped 200 Liq (Erythromycin Ethylsuccinate) 200 Mg/5 Ml Shikha 200 Mg PO DAILY Combigan Opth Drops (Brimonidine-Timolol Opth Drops) 0.2-0.5% Soln 1 Drop EACH EYE Q12HR Clobetasol Topical (Clobetasol Propionate) 0.05% Cream 1 Applic TOPICAL DAILY Aspirin Low Dose (Aspirin) 81 Mg Chew 81 Mg CHEW DAILY Sensipar (Cinacalcet) 60 Mg Tab 60 Mg PO DAILY Pravachol (Pravastatin) 80 Mg Tab 80 Mg PO DAILY Plavix (Clopidogrel Bisulfate) 75 Mg Tab 75 Mg PO DAILY Metoclopramide (Metoclopramide HCl) 5 Mg Tab 5 Mg PO TIDAC Labetalol (Labetalol HCl) 200 Mg Tab 200 Mg PO BID Narrative Medication List of her home medications reviewed from the nursing note. Review of Systems Except as stated in HPI: all other systems reviewed are Neg Physical Exam Narrative GENERAL: Awake, alert, blind, moderate distress, obese SKIN: Focused skin assessment warm/dry. HEAD: Atraumatic. Normocephalic. EYES: Pupils equal and round. No scleral icterus. No injection or drainage. ENT: No nasal bleeding or discharge. Mucous membranes pink and moist. NECK: Trachea midline. No JVD. CARDIOVASCULAR: Regular rate and rhythm. No murmur appreciated. RESPIRATORY: No accessory muscle use. Clear to auscultation. Breath sounds equal bilaterally. GASTROINTESTINAL: Abdomen soft, non-tender, nondistended. Hepatic and splenic margins not palpable. MUSCULOSKELETAL: No obvious deformities. No clubbing. No cyanosis. No edema. NEUROLOGICAL: Awake and alert. No obvious cranial nerve deficits. Motor grossly within normal limits. Normal speech. PSYCHIATRIC: Appropriate mood and affect; insight and judgment normal. Data Data Last Documented VS Vital Signs Date Time Temp Pulse Resp B/P Pulse Ox O2 Delivery O2 Flow Rate FiO2 04/26/17 20:30 84 20 187/88 100 Room Air 04/26/17 18:58 97.7 Orders Electrocardiogram (04/26/17 19:08) Basic Metabolic Panel (Bmp) (04/26/17 19:08) Ckmb (Isoenzyme) Profile (04/26/17 19:08) Complete Blood Count With Diff (04/26/17 19:08) Magnesium (Mg) (04/26/17 19:08) Prothrombin Time / Inr (Pt) (04/26/17 19:08) Act Partial Throm Time (Ptt) (04/26/17 19:08) Troponin I (04/26/17 19:08) Chest, Single Ap (04/26/17 19:08) Ecg Monitoring (04/26/17 19:08) Bilateral Bp Monitoring (04/26/17 19:08) Iv Access Insert/Monitor (04/26/17 19:08) Oximetry (04/26/17 19:08) Oxygen Administration (04/26/17 19:08) Aspirin Chew (Aspirin Chew) (04/26/17 19:15) Sodium Chloride 0.9% Flush (Ns Flush) (04/26/17 19:15) Labetalol (Trandate) (04/26/17 20:45) Admit Order (Ed Use Only) (04/26/17 20:44) Labs Laboratory Tests Test 04/26/17 19:30 White Blood Count 6.2 TH/MM3 Red Blood Count 3.35 MIL/MM3 Hemoglobin 11.2 GM/DL Hematocrit 34.3 % Mean Corpuscular Volume 102.4 FL Mean Corpuscular Hemoglobin 33.5 PG Mean Corpuscular Hemoglobin 32.8 % Concent Red Cell Distribution Width 19.0 % Platelet Count 211 TH/MM3 Mean Platelet Volume 10.0 FL Neutrophils (%) (Auto) 52.1 % Lymphocytes (%) (Auto) 32.0 % Monocytes (%) (Auto) 9.9 % Eosinophils (%) (Auto) 5.2 % Basophils (%) (Auto) 0.8 % Neutrophils # (Auto) 3.2 TH/MM3 Lymphocytes # (Auto) 2.0 TH/MM3 Monocytes # (Auto) 0.6 TH/MM3 Eosinophils # (Auto) 0.3 TH/MM3 Basophils # (Auto) 0.1 TH/MM3 CBC Comment DIFF FINAL Differential Comment Prothrombin Time 10.7 SEC Prothromb Time International 1.0 RATIO Ratio Activated Partial 24.3 SEC Thromboplast Time Sodium Level 138 MEQ/L Potassium Level 4.1 MEQ/L Chloride Level 97 MEQ/L Carbon Dioxide Level 26.6 MEQ/L Anion Gap 14 MEQ/L Blood Urea Nitrogen 33 MG/DL Creatinine 8.02 MG/DL Estimat Glomerular Filtration 6 ML/MIN Rate Random Glucose 272 MG/DL Calcium Level 10.7 MG/DL Magnesium Level 2.1 MG/DL Total Creatine Kinase 74 U/L Troponin I 0.03 NG/ML MDM Medical Decision Making Medical Screen Exam Complete: Yes Emergency Medical Condition: Yes Medical Record Reviewed: Yes Interpretation(s) Twelve-lead EKG was reviewed by me. Normal sinus rhythm, left axis deviation, nonspecific ST-T wave changes. Heart rate of 80 bpm. Differential Diagnosis ACS, non-STEMI, nonspecific chest Narrative Course 8:47 PM blood test results of back and within acceptable range except for her BUN/creatinine. But patient does have known end-stage renal disease and hemodialysis dependent. Given her multiple risk factors I'll admit her to the chest pain center overnight to be seen by the physician/ophthalmologist in the morning. I' ve explained this to the patient and her and they're okay with the plan. She was given 2 baby aspirin's. Procedures EKG Prior to Arrival: No Diagnosis Primary Impression: Chest pain in adult Admitting Information Admitting Physician Requests: Observation Yaniv Yates MD Apr 26, 2017 19:04
[2017-04-26] MEDS ORDERED: ASPIRIN 81 MG CHEW TAB PO ONE (19:15)
[2017-04-26] MEDS ORDERED: SODIUM CHLORIDE 0.9% FLUSH 10 ML FLUSH IVF PRN (19:15)
--- NOTE | 2017-04-26 19:34 | RADRPT ---
EXAM DATE/TIME: 04/26/2017 19:08 [facility] COMPARISON: CHEST SINGLE AP, January 17, 2017, 18:14. INDICATIONS : Chest pain, shortness of breath. MEDICAL HISTORY : Hypertension. Diabetes mellitus type II. SURGICAL HISTORY : None. ENCOUNTER: Initial ACUITY: 2 weeks PAIN SCORE: 5/10 LOCATION: Bilateral chest and midline. FINDINGS: A single view of the chest demonstrates the lungs to be symmetrically aerated without evidence of mas s, infiltrate or effusion. The heart size remains mildly prominent with no perihilar edema. Osseous structures are intact. CONCLUSION: Mild cardiomegaly with no acute cardiopulmonary disease. Barrett Stevens MD on April 26, 2017 at 19:31 Board Certified Radiologist. This report was verified electronically.
[2017-04-26 20:05] LABS: AUTOMATED NEUTROPHIL # 3.2 TH/MM3 (1.8-7.7); BASOPHIL # 0.1 TH/MM3 (0-0.2); BASOPHIL % 0.8 % (0.0-2.0); EOSINOPHIL # 0.3 TH/MM3 (0-0.4); EOSINOPHIL % 5.2 % (0.0-4.0); HEMATOCRIT 34.3 % (35.0-46.0); HEMO FLAGS DIFF FINAL; MEAN CELL VOLUME 102.4 FL (80.0-100.0); MEAN CORPUSCULAR HEMOGLOBIN 33.5 PG (27.0-34.0); MEAN CORPUSCULAR HGB CONC 32.8 % (32.0-36.0); MONO % 9.9 % (0.0-8.0); NEUT % 52.1 % (16.0-70.0); PLATELET COUNT 211 TH/MM3 (150-450); RED BLOOD COUNT 3.35 MIL/MM3 (4.00-5.30); WHITE BLOOD COUNT 6.2 TH/MM3 (4.0-11.0)
[2017-04-26 20:17] LABS: APTT (PATIENT) 24.3 SEC (24.3-30.1); PROTHROMBIN TIME - PATIENT 10.7 SEC (9.8-11.6)
[2017-04-26 20:30] VITALS: BP 187/88; PULSE 84; RESP 20; O2SAT 100
[2017-04-26 20:32] LABS: BICARBONATE 26.6 MEQ/L (21.0-32.0); MAGNESIUM 2.1 MG/DL (1.5-2.5); POTASSIUM 4.1 MEQ/L (3.5-5.1)
[2017-04-26] MEDS ORDERED: LABETALOL HCL 200 MG TAB PO ONE (20:45)
[2017-04-26] MEDS ORDERED: CLOB0.055 TOPICAL (21:01)
[2017-04-26] MEDS ORDERED: LEVEMIR SQ (21:01)
[2017-04-26] MEDS ORDERED: DULO20 PO (21:01)
[2017-04-26] MEDS ORDERED: ASPI81CH37 CHEW (21:01)
[2017-04-26] MEDS ORDERED: COMB0.2S EACH EYE (21:01)
[2017-04-26] MEDS ORDERED: TYLETAB34 PO (21:01)
[2017-04-26] MEDS ORDERED: NEXI40CA PO (21:01)
[2017-04-26] MEDS ORDERED: [UNRECOGNIZED DRUG - CODE] PO (21:01)
[2017-04-26] MEDS ORDERED: SODIUM CHLORIDE 0.9% FLUSH 10 ML FLUSH IV FLUSH PRN (21:30)
[2017-04-26] MEDS ORDERED: ONDANSETRON HCL 4 MG/2 ML VIAL IV PRN (21:30)
[2017-04-26] MEDS ORDERED: NITROGLYCERIN 0.4 MG SL 25 TABS/BTL SL PRN (21:30)
[2017-04-26] MEDS ORDERED: ACETAMINOPHEN 500 MG CPLT PO PRN (21:30)
[2017-04-26 21:42] VITALS: O2SAT 100
--- NOTE | 2017-04-26 21:43 | EKG ---
Date Performed: 04/26/2017 Time Performed: 19:13:16 PTAGE: 56 years EKG: Sinus rhythm MARKED LEFT AXIS DEVIATION NONSPECIFIC T-WAVE ABNORMALITY ABNORMAL ECG PREVIOUS TRACING : 01/17/2017 18.21 Compared to the previous tracing, rate has decreased DOCTOR: Sree Blanc Interpretating Date/Time 04/26/2017 21:41:48
[2017-04-26 21:55] VITALS: BP 139/73; PULSE 83; RESP 19; O2SAT 98
[2017-04-27] VITALS (7 sets, daily range): BP systolic 110–198; BP diastolic 53–92; PULSE 77–83; RESP 14–18; TEMP 98–98.7; O2SAT 97–98
[2017-04-27] MEDS ORDERED: METOPROLOL TARTRATE 50 MG TAB PO PRN (01:15)
[2017-04-27] MEDS ORDERED: amLODIPine BESYLATE 5 MG TAB PO PRN (01:15)
[2017-04-27] MEDS ORDERED: DULoxetine HCl DR 20 MG CAP PO ONE (01:15)
[2017-04-27] MEDS ORDERED: DEXTROSE 50% IN WATER 50 ML VIAL(D50) IV PUSH PRN (06:15)
[2017-04-27] MEDS ORDERED: GLUCAGON 1 MG/ML VIAL OTHER PRN (06:15)
[2017-04-27] MEDS: LOW DOSE INSULIN NOVOLOG SUPPLEMENTAL SCALE SQ SCH ×2 (06:28→11:00)
[2017-04-27] MEDS ORDERED: SODIUM CHLORIDE 0.9% FLUSH 10 ML FLUSH IV FLUSH SCH (09:00)
[2017-04-27] MEDS: CLOPIDOGREL 75 MG TAB PO SCH ×2 (09:00→14:04)
[2017-04-27] MEDS ORDERED: DULoxetine HCl DR 20 MG CAP PO SCH (09:00)
[2017-04-27] MEDS: LABETALOL HCL 200 MG TAB PO SCH ×2 (09:00→14:05)
[2017-04-27] MEDS: CINACALCET HYDROCHLORIDE 30 MG TAB PO SCH ×3 (09:00→14:06)
[2017-04-27] MEDS ORDERED: PRAVASTATIN SOD 80 MG TAB PO SCH (09:00)
[2017-04-27] MEDS ORDERED: PANTOPRAZOLE SOD 40 MG DELAYED RELEASE TAB PO SCH (09:00)
--- NOTE | 2017-04-27 09:49 | HHI.HP ---
[facility] Primary Care Physician John Genao DO Chief Complaint Chest pain History of Present Illness This is a 56-year-old female that presents to ED with history of end-stage renal disease undergoing dialysis on Mondays, Friday, and Friday as well as having diabetes, hypertension, CHF, hyperlipidemia, anemia, and reported CAD with a complaint of chest discomfort. She states that she has had 2 days of constant central chest pain rate is a 67 out of 10. A couple time she has been diaphoretic. Nothing in particular seems to worsen or improve but she readily admits that she does nothing strenuous. Denies recent illnesses. Denies fevers or chills. He states that her settlement processor is Dr. Velez. Cannot recall last stress test. (Bao Mott) Review of Systems General: Patient denies fevers, chills recent, and recent travel HEENT: Patient denies headache, sore throat, difficulty swallowing. Cardiovascular: Has the chest discomfort as mentioned above. Denies sensation of heart beating rapidly or irregularly. No syncope. Occasional diaphoresis. Respiratory: Denies shortness of breath or inspirational chest discomfort. Denies coughing wheezing or hemoptysis. GI: Patient denies nausea, vomiting, diarrhea, abdominal pain, bloody stools. Musculoskeletal: Patient denies joint pain or edema. Denies calf pain or edema. Neurovascular: Patient denies numbness, tingling, weakness in extremities. Denies headache. Endocrine: Denies polyuria and polydipsia. Hematologic: Denies easy bruising. Skin: Denies rash or itching. (Bao Mott) Past Family Social History Allergies: Coded Allergies: Linezolid (Verified Allergy, Severe, VOMITING, 04/26/17) Percocet (Verified Allergy, Severe, VOMITING, 04/26/17) Zocor (Verified Allergy, Severe, VOMITING, 04/26/17) Zosyn (Verified Allergy, Severe, VOMITING, 04/26/17) Past Medical History End-stage renal disease undergoing dialysis on Friday, Friday, and Friday. Diabetes, hypertension, CHF, CAD, hyperlipidemia, and anemia. Past Surgical History Left upper arm aVF for dialysis. Appendectomy and bilateral cataracts. Reported Medications Reported Meds & Active Scripts Active Reported Tylenol-Codeine #3 (Acetaminophen-Codeine) 300-30 mg Tab 1 Tab PO HS Nexium (Esomeprazole DR) 40 Mg Capdr 40 Mg PO DAILY Levemir Inj (Insulin Detemir) 1,000 unit/ 10 ML Vial 25 Units SQ HS Do not mix with any other Insulin. Cymbalta DR (Duloxetine HCl) 20 Mg Capdr 20 Mg PO DAILY Eryped 200 Liq (Erythromycin Ethylsuccinate) 200 Mg/5 Ml Shikha 200 Mg PO DAILY Combigan Opth Drops (Brimonidine-Timolol Opth Drops) 0.2-0.5% Soln 1 Drop EACH EYE Q12HR Clobetasol Topical (Clobetasol Propionate) 0.05% Cream 1 Applic TOPICAL DAILY Aspirin Low Dose (Aspirin) 81 Mg Chew 81 Mg CHEW DAILY Sensipar (Cinacalcet) 60 Mg Tab 60 Mg PO DAILY Pravachol (Pravastatin) 80 Mg Tab 80 Mg PO DAILY Plavix (Clopidogrel Bisulfate) 75 Mg Tab 75 Mg PO DAILY Metoclopramide (Metoclopramide HCl) 5 Mg Tab 5 Mg PO TIDAC Labetalol (Labetalol HCl) 200 Mg Tab 200 Mg PO BID Active Ordered Medications Current Medications Medications (Trade) Dose Ordered Sig/Peter Route Start Time Stop Time Status Last Admin (NS Flush) 2 ml UNSCH PRN IV FLUSH 04/26/17 21:30 (NS Flush) 2 ml BID IV FLUSH 04/27/17 09:00 (Tylenol) 500 mg Q4H PRN PO 04/26/17 21:30 (Zofran Inj) 4 mg Q6H PRN IV 04/26/17 21:30 (Nitrostat Sl) 0.4 mg Q5M PRN SL 04/26/17 21:30 (Cymbalta Dr) 20 mg DAILY PO 04/27/17 09:00 (Norvasc) 5 mg Q8H PRN PO 04/27/17 01:15 (Lopressor) 50 mg Q8H PRN PO 04/27/17 01:15 (D50w (Vial) Inj) 25 ml UNSCH PRN IV PUSH 04/27/17 06:15 (Glucagon Inj) 1 mg UNSCH PRN OTHER 04/27/17 06:15 (Plavix) 75 mg DAILY PO 04/27/17 09:00 (Trandate) 200 mg BID PO 04/27/17 09:00 (Reglan) 5 mg TIDAC PO 04/27/17 12:00 (Pravachol) 80 mg DAILY PO 04/27/17 09:00 (Sensipar) 60 mg DAILY PO 04/27/17 09:00 (Protonix) 40 mg DAILY PO 04/27/17 09:00 Family History She is not aware of her family medical history. Social History Patient denies smoking, alcohol, or use of illicit drugs. (Bao Mott) Physical Exam Vital Signs Vital Signs Date Time Temp Pulse Resp B/P Pulse Ox O2 Delivery O2 Flow Rate FiO2 04/27/17 08:43 80 04/27/17 07:50 98.0 80 18 139/62 97 04/27/17 03:57 83 04/27/17 03:19 98.7 82 14 110/53 98 04/27/17 01:20 82 04/27/17 00:13 98.5 77 18 198/92 97 04/26/17 21:55 83 19 139/73 98 Room Air 04/26/17 21:42 100 04/26/17 20:30 84 20 187/88 100 Room Air 04/26/17 19:27 99 Room Air 04/26/17 18:58 97.7 86 15 135/74 100 Physical Exam GENERAL: This is a well-nourished, well-developed patient, in no apparent distress. Patient speaks in clear complete sentences. Patient is pleasant. HEENT: Head is atraumatic and normocephalic. Neck is supple without lymphadenopathy and trachea is midline. No JVD or carotid bruits. CARDIOVASCULAR: Regular rate and rhythm without murmurs, gallops, or rubs. RESPIRATORY: Clear to auscultation. Breath sounds equal bilaterally. No wheezes , rales, or rhonchi. Chest wall is tender worsening the discomfort she has been having. No use of accessory muscles. GASTROINTESTINAL: Abdomen is nontender, nondistended. Abdomen soft. No obvious pulsatile mass or bruit. No CVA tenderness. Strong femoral pulses bilaterally. Normal bowel sounds in all quadrants. MUSCULOSKELETAL: Patient is moving upper and lower extremities freely. No calf tenderness or edema, no Homans sign. Strong pulses in upper and lower extremities. NEUROLOGICAL: Patient is alert and oriented. Cranial nerves 2-12 are grossly intact. No focal deficits and speech is clear. SKIN: No rash and turgor is normal. Laboratory Laboratory Tests Test 04/26/17 04/26/17 04/27/17 19:30 23:05 03:30 White Blood Count 6.2 Red Blood Count 3.35 Hemoglobin 11.2 Hematocrit 34.3 Mean Corpuscular Volume 102.4 Mean Corpuscular Hemoglobin 33.5 Mean Corpuscular Hemoglobin 32.8 Concent Red Cell Distribution Width 19.0 Platelet Count 211 Mean Platelet Volume 10.0 Neutrophils (%) (Auto) 52.1 Lymphocytes (%) (Auto) 32.0 Monocytes (%) (Auto) 9.9 Eosinophils (%) (Auto) 5.2 Basophils (%) (Auto) 0.8 Neutrophils # (Auto) 3.2 Lymphocytes # (Auto) 2.0 Monocytes # (Auto) 0.6 Eosinophils # (Auto) 0.3 Basophils # (Auto) 0.1 CBC Comment DIFF FINAL Differential Comment Prothrombin Time 10.7 Prothromb Time International 1.0 Ratio Activated Partial 24.3 Thromboplast Time Sodium Level 138 Potassium Level 4.1 Chloride Level 97 Carbon Dioxide Level 26.6 Anion Gap 14 Blood Urea Nitrogen 33 Creatinine 8.02 Estimat Glomerular Filtration 6 Rate Random Glucose 272 Calcium Level 10.7 Magnesium Level 2.1 Total Creatine Kinase 74 60 61 Troponin I 0.03 0.03 0.04 (Bao Mott) Result Diagram: 04/26/17192904/26/171929 Imaging Last 24 hours Impressions Chest X-Ray 04/26/171907 Signed Impressions: Service Date/Time: Wednesday, April 26, 2017 19:08 - CONCLUSION: Mild cardiomegaly with no acute cardiopulmonary disease. Barrett Stevens MD Course EKGs have sinus rhythm with nonspecific T-wave changes. (Bao Mott ) Assessment and Plan Assessment and Plan * Chest pain: Patient has had serial cardiac enzymes and EKGs for ruling out purposes. She has been seen by Dr. Franklin of cardiology in the chest pain center and will undergo a Lexiscan. She'll be discharged home if stress test is nonischemic with instructions to follow-up with her primary care physician, atmospheric scientist, and settlement processor. * End-stage renal disease: Patient undergoes dialysis on Friday, Friday, and Friday. She should continue this under the direction of her atmospheric scientist. * Hypertension: Continue current medication. * Hyperlipidemia: Continue current medication. * Diabetes: Patient will be covered with sliding scale coverage. She has been advised to follow diabetic diet and resume her medication at discharge. Patient is stable at this time. She is agreeable to this plan. (Bao Mott) Assessment and Plan Patient discussed with PA, history obtained from pt, and PE carried out. Agree with above. CP atypical but due to risk will scan to RO. At disch needs to be followed up by Dr. Ramirez and PCP Only addition is issue with possible infestation at home with bed bugs. A specimen has been obtained and pending lab ID. (Ihsan Franklin MD) Bao Mott Apr 27, 2017 09:48 Ihsan Franklin MD Apr 27, 2017 10:05
[2017-04-27] MEDS ORDERED: METOCLOPRAMIDE HCL 10 MG TAB PO SCH (12:00)
--- NOTE | 2017-04-27 12:10 | EKG ---
Date Performed: 04/26/2017 Time Performed: 23:04:03 PTAGE: 56 years EKG: Sinus rhythm BORDERLINE LEFT AXIS DEVIATION NONSPECIFIC T-WAVE ABNORMALITY BORDERLINE ECG PREVIOUS TRACING : 04/26/2017 19.13 DOCTOR: Ihsan Franklin Interpretating Date/Time 04/27/2017 12:08:51
--- NOTE | 2017-04-27 12:10 | EKG ---
Date Performed: 04/27/2017 Time Performed: 02:19:37 PTAGE: 56 years EKG: Sinus rhythm WITH FIRST DEGREE AV BLOCK MARKED LEFT AXIS DEVIATION NONSPECIFIC T-WAVE ABNORMALITY ABNORMAL ECG PREVIOUS TRACING : 04/26/2017 23.04 DOCTOR: Ihsan Franklin Interpretating Date/Time 04/27/2017 12:08:19
[2017-04-27] MEDS ORDERED: REGADENOSON INJ 0.4 MG/5 ML SYR ONE (12:38)
--- NOTE | 2017-04-27 13:56 | RADRPT ---
EXAM DATE/TIME: 04/27/2017 12:12 [facility] COMPARISON: No previous studies available for comparison. INDICATIONS : Left sided chest pain for one day. Angina. DOSE: 25.8 mCi Tc99m Myoview at stress. 8.7 mCi Tc99m Myoview at rest. 0.4 mg Lexiscan STRESS SYMPTOMS: Nausea. EJECTION FRACTION: 44% MEDICAL HISTORY : Renal disease, end stage. Hypertension. SURGICAL HISTORY : Appendectomy. ENCOUNTER: Initial ACUITY: 1 day PAIN SCALE: 5/10 LOCATION: Left chest TECHNIQUE: The patient underwent pharmacologic stress with infusion of prescribed dose. Continuous ECG tracing was monitored during stress. Gated SPECT imaging was performed after stress and conventional SPECT i maging was performed at rest. The examination was performed on a SPECT/CT scanner, both attenuation and non-corrected datasets were reviewed. FINDINGS: DISTRIBUTION: The maximum perfused segment at stress is in the septal wall. PERFUSION STUDY: The pattern of perfusion at stress shows fixed diminished perfusion to the low inferolateral wall ext ending into the apex. GATED STUDY: Markedly diffuse hypokinesis with a diminished ejection fraction of 44%. CONCLUSION: 1. 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 Moderate diffuse hypokinesis with a reduced ejection fraction of 44%. RISK CATEGORY: Intermediate (1-3% Annual Mortality Rate) Elie Storey MD on April 27, 2017 at 13:52 Board Certified Radiologist. This report was verified electronically.
--- NOTE | 2017-04-27 14:12 | HHI.DCPOC ---
Discharge Care Plan Diagnosis: (1) Chest pain (2) ESRD (end stage renal disease) (3) Hypertension (4) Anemia (5) DM type 2 with diabetic peripheral neuropathy (6) Hyperlipidemia Goals to Promote Your Health * To prevent worsening of your condition and complications * To maintain your health at the optimal level Directions to Meet Your Goals Take your medications as prescribed Follow your dietary instruction Follow activity as directed Keep your appointments as scheduled Take your immunizations and boosters as scheduled If your symptoms worsen call your PCP, if no PCP go to Urgent Care Center or Emergency Room Smoking is Dangerous to Your Health. Avoid second hand smoke Call the 24-hour hour crisis hotline for domestic abuse at B[place] Mott Apr 27, 2017 14:12
--- NOTE | 2017-04-28 08:04 | TR ---
Date Performed: 04/27/2017 Time Performed: 12:46:39 DOCTOR: Adelfo Rogers DRUG LIST: CLINICAL HISTORY: ANGINA REASON FOR TEST: Angina REASON FOR ENDING: OBSERVATION: CONCLUSION: Lexiscan stress test was performed under standard four minute protocol. Radionucl[place] e was injected one minute prior to ending the test. No electrocardiographic abormalities were present to suggest ischemia. Nuclear imaging and interpretation are pending. COMMENTS:
== END 2017-04-27 14:49 | disposition home or self-care (01) ==
LOC: NEPE 18:53 → NEDA 20:46 → NEPGCP 23:59
PROVIDERS: ADMIT Internal Medicine Interventional Cardiology; ATTEND Internal Medicine Interventional Cardiology
DX: R07.89 Other chest pain (principal); R94.31 Abnormal electrocardiogram [ECG] [EKG]; I44.0 Atrioventricular block, first degree; R11.0 Nausea; R06.02 Shortness of breath; R61 Generalized hyperhidrosis; I25.119 Atherosclerotic heart disease of native coronary artery with unspecified angina pectoris; I13.2 Hypertensive heart and chronic kidney disease with heart failure and with stage 5 chronic kidney disease, or end stage renal disease; I50.9 Heart failure, unspecified; N18.6 End stage renal disease; E78.5 Hyperlipidemia, unspecified; E78.00 Pure hypercholesterolemia, unspecified; E11.22 Type 2 diabetes mellitus with diabetic chronic kidney disease; H54.0 Blindness, both eyes; F41.9 Anxiety disorder, unspecified; F32.9 Major depressive disorder, single episode, unspecified; M19.90 Unspecified osteoarthritis, unspecified site; Z99.2 Dependence on renal dialysis; Z79.02 Long term (current) use of antithrombotics/antiplatelets; Z79.899 Other long term (current) drug therapy; Z79.82 Long term (current) use of aspirin
CPT/HCPCS: 71010; 78452; 80048; 82550; 82948; 83735; 84484; 85025; 85610; 85730; 93005; 93017; 99285; A9502; G0378; J2785

== ENCOUNTER 2017-05-02 17:44 | Inpatient (IN) | payer MEDICARE, MEDICAID ==
[~2017-05-02] VITALS: Ht 172.7 cm; Wt 97.3 kg
[~2017-05-02 17:44] MED LIST changes: +ASPI81CH37 CHEW; -CALC1CAP PO; +CLOB0.055 TOPICAL; +COMB0.2S EACH EYE; -COZA50TA PO; +DULO20 PO; +LEVEMIR SQ; -LEXA10TA PO; +NEXI40CA PO; -PANT40TA3 PO; +TYLETAB34 PO; +[UNRECOGNIZED DRUG - CODE] PO
[2017-05-02 18:37] VITALS: RESP 18; O2SAT 100
--- NOTE | 2017-05-02 18:38 | PD ---
HPI Chief Complaint: Fall Time Seen by Provider: 18:26 Travel History International Travel<30 days: No Contact w/Intl Traveler<30days: No Traveled to known affect area: No History of Present Illness HPI 56-year-old female with history of end-stage renal disease on dialysis, presents to the ER today because she chipped and fell down a flight of stairs, had a loss of consciousness and left forehead hematoma. She has been nauseous and vomiting. She also complains of left hip pain. She denies chest pains or trouble breathing. Modifying Factors: None Associated Signs & Symptoms: Fall down stairs, head injury, nausea and vomiting and headache, left hip pain Risk Factors: None PFSH Past Medical History Anemia: Yes Arthritis: Yes Asthma: No Autoimmune Disease: No Blood Disorders: Yes (anemia of chronic disease) Anxiety: Yes Depression: Yes Heart Rhythm Problems: No Cancer: No Cardiac Catheterization: No Cardiovascular Problems: Yes High Cholesterol: Yes Chest Pain: Yes Congestive Heart Failure: No Cerebrovascular Accident: No Diabetes: Yes Dialysis: Yes ([facility] FRI/FRI/FRI LAST WENT 04/25/17) Diminished Hearing: No Endocrine: No Gastrointestinal Disorders: Yes Glaucoma: No Genitourinary: Yes Headaches: Yes Hepatitis: No Hiatal Hernia: No Hypertension: Yes Immune Disorder: No Implanted Vascular Access Dvce: Yes (L UPPER ARM AVF) Musculoskeletal: No Neurologic: No Psychiatric: Yes Reproductive: No Respiratory: No Renal Failure: Yes Seizures: No Sickle Cell Disease: No Thyroid Disease: No PNEUMOCCOCAL Vaccine (Year): 2 Menopausal: Yes : 2 Para: 1 Miscarriage: 1 : 0 Past Surgical History Abdominal Surgery: Yes (appendectomy) Appendectomy: Yes Body Medical Devices: left AV fistula Cardiac Surgery: No Section: Yes Coronary Artery Bypass Graft: Yes Ear Surgery: No Endocrine Surgery: No Eye Surgery: Yes (bilateral cataracts removal) Genitourinary Surgery: No Gynecologic Surgery: No Oral Surgery: No Pacemaker: No Thoracic Surgery: No Other Surgery: Yes (LEFT ARM SHUNT PLACEMENT) Social History Alcohol Use: No Tobacco Use: No Substance Use: No Allergies-Medications (Allergen,Severity, Reaction): Coded Allergies: Linezolid (Verified Allergy, Severe, VOMITING, 04/26/17) Percocet (Verified Allergy, Severe, VOMITING, 04/26/17) Zocor (Verified Allergy, Severe, VOMITING, 04/26/17) Zosyn (Verified Allergy, Severe, VOMITING, 04/26/17) Reported Meds & Prescriptions Reported Meds & Active Scripts Active Reported Tylenol-Codeine #3 (Acetaminophen-Codeine) 300-30 mg Tab 1 Tab PO HS Nexium (Esomeprazole DR) 40 Mg Capdr 40 Mg PO DAILY Levemir Inj (Insulin Detemir) 1,000 unit/ 10 ML Vial 25 Units SQ HS Do not mix with any other Insulin. Cymbalta DR (Duloxetine HCl) 20 Mg Capdr 20 Mg PO DAILY Eryped 200 Liq (Erythromycin Ethylsuccinate) 200 Mg/5 Ml Shikha 200 Mg PO DAILY Combigan Opth Drops (Brimonidine-Timolol Opth Drops) 0.2-0.5% Soln 1 Drop EACH EYE Q12HR Clobetasol Topical (Clobetasol Propionate) 0.05% Cream 1 Applic TOPICAL DAILY Aspirin Low Dose (Aspirin) 81 Mg Chew 81 Mg CHEW DAILY Sensipar (Cinacalcet) 60 Mg Tab 60 Mg PO DAILY Pravachol (Pravastatin) 80 Mg Tab 80 Mg PO DAILY Plavix (Clopidogrel Bisulfate) 75 Mg Tab 75 Mg PO DAILY Metoclopramide (Metoclopramide HCl) 5 Mg Tab 5 Mg PO TIDAC Labetalol (Labetalol HCl) 200 Mg Tab 200 Mg PO BID Review of Systems ROS Limitations: Altered Mental Status Physical Exam Narrative GENERAL: Well-developed middle age -[place] female patient currently in moderate distress. Awake, mildly disoriented but answering questions appropriately. In backboard and c-collar. SKIN: Focused skin assessment warm/dry. HEAD: Large left forehead hematoma. Normocephalic. EYES: Pupils equal and round. No scleral icterus. No injection or drainage. ENT: No nasal bleeding or discharge. Mucous membranes pink and moist. NECK: Trachea midline. No JVD. In c-collar. CARDIOVASCULAR: Regular rate and rhythm. No murmur appreciated. RESPIRATORY: No accessory muscle use. Clear to auscultation. Breath sounds equal bilaterally. GASTROINTESTINAL: Abdomen soft, mild left upper quadrant tenderness without guarding or rebound, nondistended. Hepatic and splenic margins not palpable. Pelvis: Stable, tender to palpation of the left hip area. MUSCULOSKELETAL: No obvious deformities. No clubbing. No cyanosis. No edema. NEUROLOGICAL: Awake and alert. No obvious cranial nerve deficits. Motor grossly within normal limits. Slurred speech. PSYCHIATRIC: Appropriate mood and affect; insight and judgment normal. Data Data Last Documented VS Vital Signs Date Time Temp Pulse Resp B/P Pulse Ox O2 Delivery O2 Flow Rate FiO2 05/02/17 18:54 98.4 84 18 174/84 100 Room Air Orders Basic Metabolic Panel (Bmp) (05/02/17 18:31) Complete Blood Count With Diff (05/02/17 18:31) Prothrombin Time / Inr (Pt) (05/02/17 18:31) Act Partial Throm Time (Ptt) (05/02/17 18:31) Type And Screen (05/02/17 18:31) Alcohol (Ethanol) (05/02/17 18:31) Pelvis, Ap Only (Routine) (05/02/17 18:31) Ct Brain W/O Iv Contrast(Rout) (05/02/17 18:31) Ct Cerv Spine W/O Contrast (05/02/17 18:31) Ct Facial Bones W/O Iv Cont (05/02/17 18:31) Iv Access Insert/Monitor (05/02/17 18:31) Ecg Monitoring (05/02/17 18:31) Oximetry (05/02/17 18:31) Oxygen Administration (05/02/17 18:31) Remove Backboard (05/02/17 18:31) Ondansetron Inj (Zofran Inj) (05/02/17 18:45) Sodium Chloride 0.9% Flush (Ns Flush) (05/02/17 18:45) Ct Abd/Pel W/O Iv Contrast (05/02/17 18:31) Hydromorphone Pf Inj (Dilaudid Pf Inj) (05/02/17 18:45) MDM Medical Decision Making Medical Screen Exam Complete: Yes Emergency Medical Condition: Yes Medical Record Reviewed: Yes Differential Diagnosis Fall down stairs, head injuryICH versus concussion versus facial fractures Narrative Course Initial CAT scans and x-rays ordered for the patient. Patient cleared off the backboard. Physician Communication Physician Communication Case signed out to Dr. Luong at 7 PM pending workup. Diagnosis Primary Impression: Head injury Additional Impression: Fall down stairs Condition: Stable Tre Amanda MD May 02, 2017 18:38
[2017-05-02] MEDS ORDERED: SODIUM CHLORIDE 0.9% FLUSH 10 ML FLUSH IVF PRN (18:45)
[2017-05-02] MEDS ORDERED: HYDROmorphone HCL PF 1 MG/ML VIAL IV ONE (18:45)
[2017-05-02] MEDS ORDERED: ONDANSETRON HCL 4 MG/2 ML VIAL IVP ONE (18:45)
[2017-05-02 18:54] VITALS: BP 174/84; PULSE 84; RESP 18; TEMP 98.4; O2SAT 100
--- NOTE | 2017-05-02 19:01 | RADRPT ---
EXAM DATE/TIME: 05/02/2017 18:37 [facility] COMPARISON: No previous studies available for comparison. INDICATIONS : Pain from fall down stairs. MEDICAL HISTORY : None. SURGICAL HISTORY : None. ENCOUNTER: Initial ACUITY: 1 day PAIN SCORE: 7/10 LOCATION: Left hip. FINDINGS: Bony pelvis is intact. However, there is questionable oblique sagittally oriented fracture of the rig ht side of the sacrum. CT of the abdomen and pelvis to follow which will be helpful. CONCLUSION: Potentially a sagittally oriented fracture of the right side of the sacrum. Aroldo Brown MD on May 02, 2017 at 18:57 Board Certified Radiologist. This report was verified electronically.
[2017-05-02 19:09] LABS: AUTOMATED NEUTROPHIL # 4.2 TH/MM3 (1.8-7.7); BASOPHIL % 0.7 % (0.0-2.0); EOSINOPHIL # 0.3 TH/MM3 (0-0.4); EOSINOPHIL % 5.2 % (0.0-4.0); HEMATOCRIT 35.5 % (35.0-46.0); HEMO FLAGS DIFF FINAL; LYMPH % 22.1 % (9.0-44.0); LYMPHOCYTE # 1.4 TH/MM3 (1.0-4.8); MEAN CELL VOLUME 101.5 FL (80.0-100.0); MEAN CORPUSCULAR HEMOGLOBIN 34.4 PG (27.0-34.0); MEAN CORPUSCULAR HGB CONC 33.9 % (32.0-36.0); MONO % 6.5 % (0.0-8.0); NEUT % 65.5 % (16.0-70.0); PLATELET COUNT 186 TH/MM3 (150-450); RED CELL DISTRIBUTION WIDTH 18.2 % (11.6-17.2); WHITE BLOOD COUNT 6.4 TH/MM3 (4.0-11.0)
[2017-05-02 19:24] LABS: INTERNATIONAL NORMALIZED RATIO 0.9 RATIO; PROTHROMBIN TIME - PATIENT 10.2 SEC (9.8-11.6)
--- NOTE | 2017-05-02 19:30 | PD ---
Data Data Last Documented VS Vital Signs Date Time Temp Pulse Resp B/P Pulse Ox O2 Delivery O2 Flow Rate FiO2 05/02/17 18:56 83 18 100 Room Air 05/02/17 18:54 98.4 174/84 Orders Basic Metabolic Panel (Bmp) (05/02/17 18:31) Complete Blood Count With Diff (05/02/17 18:31) Prothrombin Time / Inr (Pt) (05/02/17 18:31) Act Partial Throm Time (Ptt) (05/02/17 18:31) Type And Screen (05/02/17 18:31) Alcohol (Ethanol) (05/02/17 18:31) Pelvis, Ap Only (Routine) (05/02/17 18:31) Ct Brain W/O Iv Contrast(Rout) (05/02/17 18:31) Ct Cerv Spine W/O Contrast (05/02/17 18:31) Ct Facial Bones W/O Iv Cont (05/02/17 18:31) Iv Access Insert/Monitor (05/02/17 18:31) Ecg Monitoring (05/02/17 18:31) Oximetry (05/02/17 18:31) Oxygen Administration (05/02/17 18:31) Remove Backboard (05/02/17 18:31) Ondansetron Inj (Zofran Inj) (05/02/17 18:45) Sodium Chloride 0.9% Flush (Ns Flush) (05/02/17 18:45) Ct Abd/Pel W/O Iv Contrast (05/02/17 18:31) Hydromorphone Pf Inj (Dilaudid Pf Inj) (05/02/17 18:45) Ct Thorax/ Chest Wo Iv Contras (05/02/17 19:00) Consult Neurosurgery (05/02/17 ) Electrocardiogram (05/02/17 18:40) (Hub Use Only)Inp Phy Cons/Ref (05/02/17 ) Admit Order (Ed Use Only) (05/02/17 20:43) Consult Nephrology (05/02/17 ) Labs Laboratory Tests Test 05/02/17 18:45 White Blood Count 6.4 TH/MM3 Red Blood Count 3.50 MIL/MM3 Hemoglobin 12.0 GM/DL Hematocrit 35.5 % Mean Corpuscular Volume 101.5 FL Mean Corpuscular Hemoglobin 34.4 PG Mean Corpuscular Hemoglobin 33.9 % Concent Red Cell Distribution Width 18.2 % Platelet Count 186 TH/MM3 Mean Platelet Volume 9.6 FL Neutrophils (%) (Auto) 65.5 % Lymphocytes (%) (Auto) 22.1 % Monocytes (%) (Auto) 6.5 % Eosinophils (%) (Auto) 5.2 % Basophils (%) (Auto) 0.7 % Neutrophils # (Auto) 4.2 TH/MM3 Lymphocytes # (Auto) 1.4 TH/MM3 Monocytes # (Auto) 0.4 TH/MM3 Eosinophils # (Auto) 0.3 TH/MM3 Basophils # (Auto) 0.0 TH/MM3 CBC Comment DIFF FINAL Differential Comment Prothrombin Time 10.2 SEC Prothromb Time International 0.9 RATIO Ratio Activated Partial 23.6 SEC Thromboplast Time Sodium Level 135 MEQ/L Potassium Level 5.2 MEQ/L Chloride Level 99 MEQ/L Carbon Dioxide Level 28.2 MEQ/L Anion Gap 8 MEQ/L Blood Urea Nitrogen 23 MG/DL Creatinine 5.11 MG/DL Estimat Glomerular Filtration 11 ML/MIN Rate Random Glucose 190 MG/DL Calcium Level 10.8 MG/DL Ethyl Alcohol Level LESS THAN 3 MG/DL Blood Type O POSITIVE Antibody Screen NEGATIVE MDM Supervised Visit with FLORENCIO: No Narrative Course Patient signed out to me by previous provider. Please see associated no for further details. Injured patient is a 56 year old female with history of ESRD on HD who had a mechanical trip and fall down a flight of stairs. Positive LOC. Left forehead hematoma noted on exam. Patient has had several episodes of emesis, and persistent dry heaving. Previous provider also noted left-sided abdominal/hip pain. Patient was given Zofran, Dilaudid. The patient signed out to me pending imaging and lab results. CBC, BMP, coags, type and screen, blood alcohol level notable for potassium 5.2 , BUN 23/25.11 consistent with her known ESRD. X ray of the pelvis showed a potential fracture of the right side of the sacrum sagittally oriented. CT of the brain, cervical spine, chest abdomen and pelvis were obtained and notable for moderate sized subarachnoid hemorrhage and intracranial hemorrhage of the left frontal lobe. Small subarachnoid and parenchymal blood seen in the right frontal lobe. No subdural or epidural. No skull fracture. Remainder of her imaging was unremarkable. Patient is on aspirin and Plavix at home. Neither her nor her can tell me when the last time she took this, however she has her pills and a medication reminder box and took her meds as normal this morning's I suspect she last had Plavix this a.m. Patient is neurologically intact with the exception of being confused, GCS 14 but no focal neuro deficits. I spoke with Dr. Moore of neurosurgery who would like patient admitted, I spoke with Dr. Earl of trauma surgery who will admit the patient primarily. Critical Care Narrative Aggregate critical care time was 35 minutes. Time to perform other separately billable procedures was not included in the critical care time. My time did not include minutes spent treating any other patients simultaneously or on activities that did not directly contribute to the patient's treatment. The services I provided to this patient were to treat and/or prevent clinically significant deterioration that could result in: Neurologic decompensation, , disability I provided critical care services requiring my management, as noted below: Chart data review, documentation time, medication orders and management, vital sign assessments/reviewing monitor data, ordering and reviewing lab tests, ordering and interpreting/reviewing x-rays and diagnostic studies, care of the patient and discussion of the patient with the admitting physicians. Diagnosis Primary Impression: Subarachnoid hemorrhage Additional Impressions: Head injury Qualified Code: S09.90XA - Head injury, initial encounter Fall down stairs Qualified Code: W10.8XXA - Fall down stairs, initial encounter Intraparenchymal hemorrhage of brain Admitting Information Admitting Physician Requests: Admit Condition: Stable Rosa Junior MD May 02, 2017 19:30
[2017-05-02 19:32] LABS: APTT (PATIENT) 23.6 SEC (24.3-30.1)
[2017-05-02 19:38] LABS: ANION GAP 8 MEQ/L (5-15); BICARBONATE 28.2 MEQ/L (21.0-32.0); BLOOD UREA NITROGEN 23 MG/DL (7-18); CHLORIDE 99 MEQ/L (98-107); GLOMERULAR FILTRATION RATE 11 ML/MIN (>89); SODIUM (NA) 135 MEQ/L (136-145)
[2017-05-02 19:43] LABS: POTASSIUM 5.2 MEQ/L (3.5-5.1)
--- NOTE | 2017-05-02 20:04 | RADRPT ---
EXAM DATE/TIME: 05/02/2017 19:36 [facility] COMPARISON: No previous studies available for comparison. INDICATIONS : Fall RADIATION DOSE: 61.66 CTDIvol (mGy) ; Tabletop CT Head MEDICAL HISTORY : Hypertension. Cardiovascular disease Renal failure, chronic.Diabetes SURGICAL HISTORY : CABG ENCOUNTER: Initial ACUITY: 1 day PAIN SCALE: 3/10 LOCATION: cranial TECHNIQUE: Multiple contiguous axial images were obtained of the head. Using automated exposure control and adj ustment of the mA and/or kV according to patient size, radiation dose was kept as low as reasonably a chievable to obtain optimal diagnostic quality images. DICOM format image data is available electro nically for review and comparison. FINDINGS: There is moderate size area of subarachnoid and parenchymal hemorrhage of the left frontal lobe. A sm all area of subarachnoid and parenchymal blood is seen of the right frontal lobe. No subdural or epid ural blood demonstrated. No evidence of skull fracture. There is no mass, mass effect or midline shif t at this time. No evidence of an acute ischemic event. CONCLUSION: Acute subarachnoid and parenchymal hemorrhage of the right frontal and left temporal lobes. No midlin e shift. Aroldo Brown MD on May 02, 2017 at 20:01 Board Certified Radiologist. This report was verified electronically.
--- NOTE | 2017-05-02 20:06 | RADRPT ---
EXAM DATE/TIME: 05/02/2017 19:36 [facility] COMPARISON: No previous studies available for comparison. INDICATIONS : Fall RADIATION DOSE: 27.18 CTDIvol (mGy) ; Tabletop CT Head MEDICAL HISTORY : Hypertension. Renal failure, chronic. Cardiovascular diseasediabetes SURGICAL HISTORY : CABG ENCOUNTER: Initial ACUITY: 1 day PAIN SCALE: 4/10 LOCATION: neck TECHNIQUE: Volumetric scanning of the cervical spine was performed. Multiplanar reconstructions in the sagittal, coronal and oblique axial planes were performed. Using automated exposure control and adjustment o f the mA and/or kV according to patient size, radiation dose was kept as low as reasonably achievable to obtain optimal diagnostic quality images. DICOM format image data is available electronically f or review and comparison. FINDINGS: VERTEBRAE: Normal vertebral body height. ALIGNMENT: No evidence of subluxation. C2-C3: The bony spinal canal is normal in size. No evidence of disc bulge or herniation. The neural forami na are bilaterally patent. C3-C4: The bony spinal canal is normal in size. No evidence of disc bulge or herniation. The neural forami na are bilaterally patent. C4-C5: The bony spinal canal is normal in size. No evidence of disc bulge or herniation. The neural forami na are bilaterally patent. C5-C6: The bony spinal canal is normal in size. No evidence of disc bulge or herniation. The neural forami na are bilaterally patent. C6-C7: The bony spinal canal is normal in size. No evidence of disc bulge or herniation. The neural forami na are bilaterally patent. C7-T1: The bony spinal canal is normal in size. No evidence of disc bulge or herniation. The neural forami na are bilaterally patent. CONCLUSION: Intact cervical spine. Aroldo Brown MD on May 02, 2017 at 20:04 Board Certified Radiologist. This report was verified electronically.
--- NOTE | 2017-05-02 20:09 | RADRPT ---
EXAM DATE/TIME: 05/02/2017 19:36 [facility] COMPARISON: No previous studies available for comparison. INDICATIONS : Fall. Right sided facial swelling on forehead. RADIATION DOSE: 64.02 CTDIvol (mGy) ; Tabletop CT Head MEDICAL HISTORY : Cardiovascular disease. Hypertension. Diabetes mellitus type 2.renal failure SURGICAL HISTORY : Appendectomy. ENCOUNTER: Initial ACUITY: 1 day PAIN SCORE: 4/10 LOCATION: Right facial TECHNIQUE: Volumetric scanning of the facial bones was performed. Using automated exposure control and adjustme nt of the mA and/or kV according to patient size, radiation dose was kept as low as reasonably achiev able to obtain optimal diagnostic quality images. DICOM format image data is available electronicall y for review and comparison. FINDINGS: ORBITS: The orbital and infraorbital osseous structures are intact. The retroconal structures have a normal configuration. No radiopaque foreign bodies are seen. NASAL BONE: The nasal bone and maxillary spine are intact ZYGOMATIC ARCHES: Symmetric without evidence of fracture. SINUSES: The maxillary, ethmoid and frontal sinuses are intact. No air-fluid levels seen. NASAL CAVITY: The nasal septum is intact and midline. The lacrimal ducts are intact. SOFT TISSUES: Large supraorbital contusion on the left. Post septal soft tissues are normal. INTRACRANIAL: No intracranial air seen. CRIBIFORM PLATE: Grossly intact. Visualized osseous structures are diffusely sclerotic related to the patient's chronic renal disease. CONCLUSION: Intact facial bones. Large left supraorbital soft tissue hematoma. Aroldo Brown MD on May 02, 2017 at 20:06 Board Certified Radiologist. This report was verified electronically.
--- NOTE | 2017-05-02 20:13 | RADRPT ---
EXAM DATE/TIME: 05/02/2017 19:44 [facility] COMPARISON: PELVIS AP ONLY, May 02, 2017, 18:37. CT ABDOMEN & PELVIS W/O CONTRAST, January 17, 2017, 19:33. INDICATIONS : Fall, abdomen pain ORAL CONTRAST: No oral contrast ingested. RADIATION DOSE: 19.82 CTDIvol (mGy) ; Combined studies - Thorax/Abdomen/Pelvis MEDICAL HISTORY : Cardiovascular disease. Hypertension. Renal failure, chronic.diabete SURGICAL HISTORY : Appendectomy. ENCOUNTER: Initial ACUITY: 1 day PAIN SCALE: 4/10 LOCATION: abdomen TECHNIQUE: Volumetric scanning of the abdomen and pelvis was performed. Using automated exposure control and ad justment of the mA and/or kV according to patient size, radiation dose was kept as low as reasonably achievable to obtain optimal diagnostic quality images. DICOM format image data is available electro nically for review and comparison. FINDINGS: LIVER: Homogeneous density without lesion. There is no dilation of the biliary tree. Multiple tiny gallston es are again demonstrated. No duct stone or ductal dilatation.. SPLEEN: Normal size without lesion. PANCREAS: Within normal limits. KIDNEYS: Scattered small cysts and bilateral atrophy again noted. ADRENAL GLANDS: Within normal limits. VASCULAR: There is no aortic aneurysm. BOWEL/MESENTERY: The stomach, small bowel, and colon demonstrate no acute abnormality. There is no free intraperitone al air or fluid. ABDOMINAL WALL: Within normal limits. RETROPERITONEUM: There is no lymphadenopathy. BLADDER: No wall thickening or mass. REPRODUCTIVE: Within normal limits. INGUINAL: There is no lymphadenopathy or hernia. MUSCULOSKELETAL: Visualized osseous structures are intact. There is diffuse bony sclerosis related to the patient's ch ronic renal disease. CONCLUSION: No visceral organ injury, fracture or other acute abnormality. Cholelithiasis, bilateral renal atroph y and cysts and diffusely sclerotic osseous structures. Aroldo Brown MD on May 02, 2017 at 20:09 Board Certified Radiologist. This report was verified electronically.
--- NOTE | 2017-05-02 20:15 | RADRPT ---
EXAM DATE/TIME: 05/02/2017 19:44 [facility] COMPARISON: CT ABDOMEN & PELVIS W/O CONTRAST, January 17, 2017, 19:33. INDICATIONS : Fall, chest pain RADIATION DOSE: 19.82 CTDIvol (mGy) ; Combined studies - Thorax/Abdomen/Pelvis MEDICAL HISTORY : Cardiovascular disease. Hypertension. Renal failure, chronic. diabetes SURGICAL HISTORY : Appendectomy. CABG ENCOUNTER: Initial ACUITY: 1 day PAIN SCALE: 4/10 LOCATION: chest TECHNIQUE: Volumetric scanning of the chest was performed. Using automated exposure control and adjustment of t he mA and/or kV according to patient size, radiation dose was kept as low as reasonably achievable to obtain optimal diagnostic quality images. DICOM format image data is available electronically for r eview and comparison. Follow-up recommendations for incidentally detected pulmonary nodules are based at a minimum on nodul e size and patient risk factors according to Fleischner Society Guidelines. FINDINGS: Mild groundglass infiltrates are seen of both lung bases, similar to the prior study. No dense or con fluent consolidation. No pleural effusion or pneumothorax. There is a small pericardial effusion, fairly similar to before. No mediastinal hematoma. Heart size upper limits of normal, unchanged. Coronary artery calcification again noted. Visualized osseous structures are intact and diffusely sclerotic. CONCLUSION: No change groundglass infiltrates of both lung bases and small pericardial effusion. No acute abnorma lity demonstrated. Aroldo Brown MD on May 02, 2017 at 20:12 Board Certified Radiologist. This report was verified electronically.
[2017-05-02 20:45] VITALS: BP 176/84; PULSE 84; RESP 18; O2SAT 100
[2017-05-02] MEDS ORDERED: ONDANSETRON HCL 4 MG/2 ML VIAL IV PUSH ONE (21:15)
[2017-05-02 21:45] VITALS: BP 149/67; PULSE 85; RESP 18; O2SAT 100
[2017-05-02 23:26] VITALS: BP 111/63; PULSE 87; RESP 18; O2SAT 100
[2017-05-03] VITALS (14 sets, daily range): BP systolic 88–181; BP diastolic 48–74; PULSE 74–88; RESP 15–24; TEMP 98.1–99.1; O2SAT 95–100
[2017-05-03] MEDS ORDERED: ONDANSETRON HCL 4 MG/2 ML VIAL IV PUSH ONE (00:15)
[2017-05-03] MEDS ORDERED: MISCELLANEOUS NURSING INFORMATION XX SCH (00:15)
[2017-05-03] MEDS ORDERED: SODIUM CHLORIDE 0.9% FLUSH 10 ML FLUSH IV FLUSH PRN ×2 (00:15→14:30)
[2017-05-03] MEDS ORDERED: ENALAPRILAT 1.25 MG/ML VIAL IV PRN (00:15)
[2017-05-03] MEDS ORDERED: CHLORHEXIDINE GLUCONATE 2 % 1 PACK (2 CLOTHS) TOP PRN (00:15)
--- NOTE | 2017-05-03 00:45 | RADRPT ---
EXAM DATE/TIME: 05/03/2017 00:19 [facility] COMPARISON: CT ABDOMEN & PELVIS W/O CONTRAST, May 02, 2017, 19:44. INDICATIONS : Left leg pain from a fall. MEDICAL HISTORY : Cardiovascular disease. Hypertension Renal failure, chronic. Diabetes SURGICAL HISTORY : Appendectomy. ENCOUNTER: Subsequent ACUITY: 1 day PAIN SCORE: 5/10 LOCATION: Left leg FINDINGS: Two view examination of the left femur demonstrates no evidence of fracture or dislocation. Bony min eralization is normal. The soft tissue structures are intact. CONCLUSION: No acute disease. Sony Jarvis MD on May 03, 2017 at 0:43 Board Certified Radiologist. This report was verified electronically.
[2017-05-03] MEDS ORDERED: ACETAMINOPHEN/CODEINE 300 MG/30 MG TAB PO PRN (01:15)
[2017-05-03] MEDS ORDERED: GLUCAGON 1 MG/ML VIAL OTHER PRN ×2 (01:15→14:45)
[2017-05-03] MEDS ORDERED: DEXTROSE 50% IN WATER 50 ML VIAL(D50) IV PRN ×2 (01:15→14:45)
[2017-05-03] MEDS ORDERED: PILL SPLITTER OTHER PRN (01:45)
[2017-05-03] MEDS: PANTOPRAZOLE SODIUM 40 MG VIAL IVP SCH (01:47)
[2017-05-03] MEDS: MORPHINE SULFATE 8 MG/ML INJ IV PUSH PRN ×2 (01:47→05:50)
[2017-05-03] MEDS: CHLORHEXIDINE GLUCONATE 2 % 1 PACK (2 CLOTHS) TOP SCH (03:29)
--- NOTE | 2017-05-03 06:15 | RADRPT ---
EXAM DATE/TIME: 05/03/2017 05:30 [facility] COMPARISON: CT BRAIN W/O CONTRAST, May 02, 2017, 19:36. INDICATIONS : Trauma, follow up from fall. RADIATION DOSE: 42.73 CTDIvol (mGy) MEDICAL HISTORY : Hypertension. SURGICAL HISTORY : None. ENCOUNTER: Subsequent ACUITY: 2 days PAIN SCALE: Non-responsive LOCATION: cranial TECHNIQUE: Multiple contiguous axial images were obtained of the head. Using automated exposure control and adj ustment of the mA and/or kV according to patient size, radiation dose was kept as low as reasonably a chievable to obtain optimal diagnostic quality images. DICOM format image data is available electro nically for review and comparison. FINDINGS: Left frontal scalp hematoma and periorbital soft tissue swelling. Subarachnoid hemorrhage in the sylv fabienne fissure on the left and right frontal region again seen. No new areas of hemorrhage are identifie d. No fractures. Stable subarachnoid hemorrhage. Minimal left frontal parenchymal hemorrhage on image 16 unchanged. CONCLUSION: Stable intracranial hemorrhage. Sony Jarvis MD on May 03, 2017 at 6:12 Board Certified Radiologist. This report was verified electronically.
[2017-05-03] MEDS: CINACALCET HYDROCHLORIDE 30 MG TAB PO SCH (08:59)
[2017-05-03] MEDS: METOCLOPRAMIDE HCL 10 MG TAB PO SCH ×3 (08:59→16:34)
[2017-05-03] MEDS: DOCUSATE SODIUM 100 MG CAP PO SCH ×2 (08:59→20:16)
[2017-05-03] MEDS: DULoxetine HCl DR 20 MG CAP PO SCH (08:59)
[2017-05-03] MEDS ORDERED: PT OWN (Brimonidine-Timolol Opth Drops (Combigan Opth Drops) EACH EYE SCH (09:00)
[2017-05-03] MEDS: LABETALOL HCL 200 MG TAB PO SCH ×2 (09:00→20:16)
[2017-05-03] MEDS ORDERED: BETAMETHASONE DIPROPIONATE 0.05% CREAM 15 GM TOPICAL SCH (09:00)
[2017-05-03] MEDS: ERYTHROMYCIN ETHYLSUCCINATE 200 MG/5 ML SUSP 100 ML BOTTLE PO SCH (09:00)
[2017-05-03] MEDS: ONDANSETRON HCL 4 MG/2 ML VIAL IV PRN (09:29)
--- NOTE | 2017-05-03 09:41 | MH ---
cc: DELIA MARINO DATE OF ADMISSION: 05/02/2017 DATE OF : 1960 HISTORY This is a patient who is blind, has end-stage renal disease on dialysis who was walking and tripped, said she felt dizzy and fell down a flight of stairs. She was brought in and evaluated by the emergency room physician and noted to have a closed head injury. Trauma service was requested for admission. On my arrival, the patient is laying in a stretcher in no acute distress although she complains of pain in her left leg, forehead and right shoulder. She did have loss of consciousness. She denies chest pains or shortness of breath, no abdominal pain, no back pain. PAST MEDICAL HISTORY Medical history is significant for above as well as - 1. Type 2 diabetes on insulin. 2. Headaches. 3. Hypercholesterolemia. 4. Hypertension. PAST SURGICAL HISTORY She has a surgical history significant for - 1. Appendectomy. 2. AV fistula of the left arm. 3. . 4. CABG. ALLERGIES LINEZOLID, PERCOCET, ZOCOR AND ZOSYN. MEDICATIONS She is on multiple medications, can be obtained from the medical records. SOCIAL HISTORY She does not smoke. FAMILY HISTORY Noncontributory. REVIEW OF SYSTEMS Significant for above. All other review negative. PHYSICAL EXAMINATION GENERAL: On exam, the patient is laying in stretcher in no acute distress. HEENT: She has a hematoma over her left eye. NECK: Neck is nontender. CHEST: No crepitus. RESPIRATORY: Clear. CARDIOVASCULAR: Regular. GASTROINTESTINAL: Soft, obese. MUSCULOSKELETAL: No deformities. The patient does have tenderness to her left thigh. BACK: No step-offs, nontender. RADIOLOGICAL IMAGES CT of the head reveals subarachnoid and parenchymal hemorrhage of the right frontal and left temporal lobe. Cervical spine: No fractures. CT of the abdomen and pelvis: No visceral injury. CT of the chest: No acute disease. ASSESSMENT This is a patient involved in a fall with a closed head injury who has multiple medical problems. The patient is being admitted to [facility]. Renal has been consulted as well as the hospitalist to manage the patient's medical problems. We will monitor her neurological status and provide pain management. We will obtain x-ray of the left thigh. MD TERESITA Polo/BJF /12:20 AM /9:14 AM
--- NOTE | 2017-05-03 11:55 | HHI.CCPN ---
Subjective Brief History This is a patient who is blind, has end-stage renal disease on dialysis who was walking and tripped, said she felt dizzy and fell down a flight of stairs. She was brought in and evaluated by the emergency room physician and noted to have a closed head injury. Trauma service was requested for admission. On my arrival, the patient is laying in a stretcher in no acute distress although she complains of pain in her left leg, forehead and right shoulder. She did have loss of consciousness. She denies chest pains or shortness of breath, no abdominal pain, no back pain. 24 Hour Review/Hospital Course 05/03 -awake -alert GCS 15 CT head [facility] HD -normal NS consulted Objective Vital Signs Date Time Temp Pulse Resp B/P Pulse Ox O2 Delivery O2 Flow Rate FiO2 05/03/17 07:00 100 Nasal Cannula 2.00 05/03/17 06:00 79 05/03/17 04:00 98.1 15 148/67 Result Diagram: 05/02/17 1845 05/02/17 1845 Imaging Last [address] 05/03/17 0600 Signed Impressions: Service Date/Time: Wednesday, May 03, 2017 05:30 - CONCLUSION: Stable intracranial hemorrhage. Sony Jarvis MD Femur X-Ray 05/03/17 0000 Signed Impressions: Service Date/Time: Wednesday, May 03, 2017 00:19 - CONCLUSION: No acute disease. Sony Jarvis MD Chest CT 05/02/17 1900 Signed Impressions: Service Date/Time: Tuesday, May 02, 2017 19:44 - CONCLUSION: No change groundglass infiltrates of both lung bases and small pericardial effusion. No acute abnormality demonstrated. Aroldo Brown MD Pelvis X-Ray 05/02/171830 Signed Impressions: Service Date/Time: Tuesday, May 02, 2017 18:37 - CONCLUSION: Potentially a sagittally oriented fracture of the right side of the sacrum. Aroldo Brown MD Maxillofacial CT 05/02/171830 Signed Impressions: Service Date/Time: Tuesday, May 02, 2017 19:36 - CONCLUSION: Intact facial bones. Large left supraorbital soft tissue hematoma. Aroldo Brown MD Head CT 05/02/171830 Signed Impressions: Service Date/Time: Tuesday, May 02, 2017 19:36 - CONCLUSION: Acute subarachnoid and parenchymal hemorrhage of the right frontal and left temporal lobes. No midline shift. Aroldo Brown MD Cervical Spine CT 05/02/171830 Signed Impressions: Service Date/Time: Tuesday, May 02, 2017 19:36 - CONCLUSION: Intact cervical spine. Aroldo Brown MD Abdomen/Pelvis CT 05/02/171830 Signed Impressions: Service Date/Time: Tuesday, May 02, 2017 19:44 - CONCLUSION: No visceral organ injury, fracture or other acute abnormality. Cholelithiasis, bilateral renal atrophy and cysts and diffusely sclerotic osseous structures. Aroldo Brown MD Exam [employer] GCS 15 Hemodynamic/Cardiac HD -normal Pulmonary/Respiratory clear BS Abdomen/GI Nutrition soft Renal/I&O ESRD Urinary Catheter Assessment Urinary Catheter: No Vascular Central Line Catheter Vascular Central Line Catheter: No Assessment and Plan Plan SAH- ASA/plavix/ESRD gcs 15 neuro intact NS on board start clears renal consult ambulate PT pain control Lori Negrtee MD May 03, 2017 11:54
--- NOTE | 2017-05-03 11:57 | MB ---
cc: MILLIE GUILLAUME ROHIT K. M.D. DATE OF CONSULTATION: 05/02/2017 REASON FOR CONSULTATION Traumatic brain injury. HISTORY OF PRESENT ILLNESS This is a 56-year-old -Irish lady who apparently tripped and fell a flight of stairs and struck her head with positive loss of consciousness. The patient relates that she has diabetic neuropathy distally in her feet as well as is blind from diabetes also. She was brought to [facility] Emergency Room and a trauma workup undertaken including a CT scan of the head which reveals a traumatic subarachnoid hemorrhage involving the left insular and lateral Sylvian fissure along with a left temporal lobe and right frontal lobe contusion without mass effect or midline shift. No skull fractures noted. CT of the cervical spine does not reveal any fractures. Her main complaint is left thigh pain and right scapular and shoulder area pain. Initially she was nauseous but this has also improved. PAST MEDICAL HISTORY 1. Insulin-dependent diabetes mellitus with diabetic neuropathy and legally blind. 2. She has an AV fistula in the left arm and undergoes hemodialysis. 3. Renal failure. 4. Hyperlipidemia. 5. Anxiety. 6. Depression. 7. Anemia of chronic disease. 8. Hypertension. PAST SURGICAL HISTORY 1. Appendectomy. 2. Coronary artery bypass. 3. . 4. Bilateral cataract removal. MEDICATIONS 1. Tylenol with Codeine 300/30 one q.h.s. 2. Aspirin 81 mg daily. 3. Plavix 75 mg daily. 4. Sensipar 60 mg daily. 5. Cymbalta 20 mg daily. 6. Erythromycin 20 mg daily. 7. Nexium 40 mg daily. 8. Insulin. 9. Labetalol 200 mg b.i.d. 10. Metoclopramide 5 mg t.i.d. 11. Pravachol 80 mg q.h.s. ALLERGIES PERCOCET, ZOCOR, ZOSYN AND LINEZOLID. SOCIAL HISTORY She is single. Denies alcohol or tobacco use. REVIEW OF SYSTEMS Positive for headache. Positive for right shoulder area pain. Positive for left thigh pain. Positive for numbness distally in her feet from diabetic neuropathy. Positive for blindness, can barely perceive movement but cannot count fingers. Otherwise negative. LABORATORY FINDINGS White blood cell count 6.4, hemoglobin 12, platelet count 186. PT 10.2, INR 0.9, PTT 23.6. Sodium 135, potassium 5.2, BUN 23, creatinine 5.11, glucose 190. PHYSICAL EXAMINATION VITAL SIGNS: Temperature 98.4, pulse is 87, respiratory rate 18, blood pressure 111/63, oxygen saturations 100% on 2 liters nasal cannula. HEAD: She has extensive left periorbital swelling and edema. NECK: Neck is supple with no guarding or rigidity with movement. CHEST: Clear bilaterally. HEART: Regular rate rhythm. Normal S1 and S2. ABDOMEN: Soft, nontender. EXTREMITIES: She has some tenderness in the right shoulder area and the scapula and the left thigh but no obvious deformity. NEUROLOGIC: She is awake, alert. Pupils are 3 mm, react down to 2. Extraocular muscles intact although limited movement in the left eye can be noted because of severe swelling on the periorbital area. Face is symmetric. Tongue is midline. She moves all four extremities with good strength. Negative Babinski. Speech is fluent. She has decreased sensation distally to light touch in the feet. IMPRESSION 1. Mild traumatic brain injury with a left lateral Sylvian fissure and insular traumatic subarachnoid hemorrhage along with small left temporal and right frontal lobe contusions without mass effect. 2. Insulin-dependent diabetes mellitus with associated complications including diabetic retinopathy/blindness and peripheral neuropathy. 3. End-stage renal disease on hemodialysis. PLAN 1. The patient will be monitored closely in the Surgical Intensive Care Unit. 2. Her head of bed will be kept elevated at 30 degrees. 3. Sequential compression device will be used for DVT prophylaxis along with Protonix for gastrointestinal stress ulcer prophylaxis. 4. She will be placed on insulin sliding scale coverage. 5. Her diet and activity status will be increased as tolerated. 6. A followup CT scan will be obtained in the morning to rule out any progression of these areas of hemorrhages. 7. Nephrology will be consulted for management of end-stage renal disease and hemodialysis. MD MERON Rodrigez/TATE /1:11 AM /11:28 AM
--- NOTE | 2017-05-03 12:44 | EKG ---
Date Performed: 05/02/2017 Time Performed: 18:40:25 PTAGE: 56 years EKG: Sinus rhythm NONSPECIFIC T-WAVE ABNORMALITY Compared to prior tracing no significant change BORDERLINE ECG PREVIOUS TRACING : 04/27/2017 @ 0219 DOCTOR: Kwesi Blanchard Interpretating Date/Time 05/03/2017 12:41:44
[2017-05-03] MEDS ORDERED: SODIUM CHLOR 0.9% 1000 ML INJ 1,000 ML IV PRN ×3 (14:29)
[2017-05-03] MEDS ORDERED: ALBUMIN HUMAN 25% 25 GM/100 ML BAGP IV PRN (14:30)
[2017-05-03] MEDS ORDERED: cloNIDine HCL 0.1 MG TAB PO PRN (14:30)
[2017-05-03] MEDS ORDERED: ONDANSETRON HCL 4 MG/2 ML VIAL IV PRN (14:30)
[2017-05-03] MEDS ORDERED: GELATIN 12 MM/7 MM FOAM TOP PRN (14:30)
[2017-05-03] MEDS ORDERED: EPOETIN ALFA 10,000 UNITS/ML VIAL IV PRN (14:30)
[2017-05-03] MEDS ORDERED: ACETAMINOPHEN 325 MG TAB PO PRN (14:30)
[2017-05-03] MEDS ORDERED: diphenhydrAMINE HCL 25 MG CAP PO PRN (14:30)
[2017-05-03] MEDS ORDERED: MANNITOL 12.5 GM/50 ML VIAL IV PRN (14:30)
[2017-05-03] MEDS ORDERED: NITROGLYCERIN 0.4 MG SL 25 TABS/BTL SL PRN (14:30)
--- NOTE | 2017-05-03 14:35 | PD.CONS ---
HPI Service Nephrology Consult Requested By Dr. Junior Reason for Consult ESRD management Primary Care Physician John Genao, DO History of Present Illness Patient is a 56-year-old Afro[place] Islander female with a history of insulin- dependent diabetes, end-stage renal disease, hypertension on hemodialysis on Friday, Friday and Friday she had her dialysis yesterday she was at home felt dizzy and fell down the stairs injuring her left forehead there was swelling and edema around her left eye. Patient is legally blind and follows with Dr. Suggs. Review of Systems Constitutional: COMPLAINS OF: Fatigue Musculoskeletal: COMPLAINS OF: Joint pain Neurologic: COMPLAINS OF: Abnormal gait, Poor Balance Past Family Social History Allergies: Coded Allergies: Linezolid (Verified Allergy, Severe, VOMITING, 04/26/17) Percocet (Verified Allergy, Severe, VOMITING, 04/26/17) Zocor (Verified Allergy, Severe, VOMITING, 04/26/17) Zosyn (Verified Allergy, Severe, VOMITING, 04/26/17) Past Medical History Diabetes Hypertension ESRD Anemia Hyperparathyroidism Legal blindness Diabetic neuropathy Hyperlipidemia Diabetic retinopathy Past Surgical History Appendectomy Left AV fistula Cataract Eye surgery Reported Medications Reported Meds & Active Scripts Active Reported Tylenol-Codeine #3 (Acetaminophen-Codeine) 300-30 mg Tab 1 Tab PO HS Nexium (Esomeprazole DR) 40 Mg Capdr 40 Mg PO DAILY Levemir Inj (Insulin Detemir) 1,000 unit/ 10 ML Vial 25 Units SQ HS Do not mix with any other Insulin. Cymbalta DR (Duloxetine HCl) 20 Mg Capdr 20 Mg PO DAILY Eryped 200 Liq (Erythromycin Ethylsuccinate) 200 Mg/5 Ml Shikha 200 Mg PO DAILY Combigan Opth Drops (Brimonidine-Timolol Opth Drops) 0.2-0.5% Soln 1 Drop EACH EYE Q12HR Clobetasol Topical (Clobetasol Propionate) 0.05% Cream 1 Applic TOPICAL DAILY Aspirin Low Dose (Aspirin) 81 Mg Chew 81 Mg CHEW DAILY Sensipar (Cinacalcet) 60 Mg Tab 60 Mg PO DAILY Pravachol (Pravastatin) 80 Mg Tab 80 Mg PO HS Plavix (Clopidogrel Bisulfate) 75 Mg Tab 75 Mg PO DAILY Metoclopramide (Metoclopramide HCl) 5 Mg Tab 5 Mg PO TIDAC Labetalol (Labetalol HCl) 200 Mg Tab 200 Mg PO BID Active Ordered Medications Current Medications Medications (Trade) Dose Ordered Sig/Peter Route Start Time Stop Time Status Last Admin (NS Flush) 2 ml UNSCH PRN IVF 05/02/17 18:45 ([address]) 20 mg DAILY PO 05/03/17 09:00 05/03/17 08:59 (NS Flush) 2 ml UNSCH PRN IV FLUSH 05/03/17 00:15 (Vasotec Inj) 1.25 mg Q8H PRN IV 05/03/17 00:15 (Zofran Inj) 4 mg Q6H PRN IV 05/03/17 00:15 05/03/17 09:29 (Protonix Inj) 40 mg Q24H IVP 05/03/17 01:00 05/03/17 01:47 Miscellaneous Information 1 Q361D XX 05/03/17 00:15 05/03/17 00:15 (Chlorhexidine 2% Cloth) 3 pack Taper DAILY@04 TOP 05/03/17 04:00 04/29/18 03:59 05/03/17 03:29 (Chlorhexidine 2% Cloth) 3 pack UNSCH PRN TOP 05/03/17 00:15 (Ees 200 Mg/5 ml Liq) 200 mg DAILY PO 05/03/17 09:00 05/03/17 09:00 (Trandate) 200 mg BID PO 05/03/17 09:00 (Reglan) 5 mg TIDAC PO 05/03/17 08:00 05/03/17 08:59 (Pravachol) 80 mg HS PO 05/03/17 21:00 Patient Own Medication PT OWN MED: (Brimonidine-Timolol Opth Dr... Q12HR EACH EYE 05/03/17 09:00 Hold (Sensipar) 60 mg DAILY@08 PO 05/03/17 08:00 05/03/17 08:59 (Diprosone 0.05% Cream) 1 applic DAILY TOPICAL 05/03/17 09:00 05/03/17 08:58 (D50w (Vial) Inj) 50 ml UNSCH PRN IV 05/03/17 01:15 (Glucagon Inj) 1 mg UNSCH PRN OTHER 05/03/17 01:15 (Tylenol-Codeine #3) 1 tab Q4H PRN PO 05/03/17 01:15 (Morphine Inj) 2 mg Q3H PRN IV PUSH 05/03/17 01:45 05/03/17 05:50 (Pill Splitter) 1 ea UNSCH PRN OTHER 05/03/17 01:45 (Colace) 100 mg BID PO 05/03/17 09:00 05/03/17 08:59 (Milk Of Estephania Liben) 30 ml HS PO 05/03/17 21:00 Family History Noncontributory Social History Denies smoking or alcohol use Physical Exam Vital Signs Vital Signs Date Time Temp Pulse Resp B/P Pulse Ox O2 Delivery O2 Flow Rate FiO2 05/03/17 07:00 100 Nasal Cannula 2.00 05/03/17 06:00 79 05/03/17 04:00 98.1 84 15 148/67 98 05/03/17 04:00 84 05/03/17 02:00 88 05/03/17 01:00 100 Room Air 05/03/17 01:00 98.1 88 20 130/60 100 05/02/17 23:44 100 Nasal Cannula 2 05/02/17 23:26 87 18 111/63 100 05/02/17 21:45 85 18 149/67 100 Room Air 05/02/17 20:45 84 18 176/84 100 05/02/17 18:56 83 18 100 Room Air 05/02/17 18:54 98.4 84 18 174/84 100 Room Air 05/02/17 18:37 98 Room Air 05/02/17 18:37 18 100 Room Air Physical Exam GENERAL: Well-nourished, well-developed patient. SKIN: Warm and dry. HEAD: Her forehead is swollen EYES: Legally blind left eye is swollen NECK: Supple, trachea midline. No JVD or lymphadenopathy. CARDIOVASCULAR: Regular rate and rhythm without murmurs, gallops, or rubs. RESPIRATORY: Breath sounds equal bilaterally. No accessory muscle use. GASTROINTESTINAL: Abdomen soft, non-tender, nondistended. EXTREMITIES: No cyanosis, or edema. AV fistula left arm NEUROLOGICAL: Awake, alert, and oriented x 3. Non-focal. Laboratory Laboratory Tests Test 05/02/17 05/03/17 18:45 01:14 White Blood Count 6.4 Red Blood Count 3.50 Hemoglobin 12.0 Hematocrit 35.5 Mean Corpuscular Volume 101.5 Mean Corpuscular Hemoglobin 34.4 Mean Corpuscular Hemoglobin 33.9 Concent Red Cell Distribution Width 18.2 Platelet Count 186 Mean Platelet Volume 9.6 Neutrophils (%) (Auto) 65.5 Lymphocytes (%) (Auto) 22.1 Monocytes (%) (Auto) 6.5 Eosinophils (%) (Auto) 5.2 Basophils (%) (Auto) 0.7 Neutrophils # (Auto) 4.2 Lymphocytes # (Auto) 1.4 Monocytes # (Auto) 0.4 Eosinophils # (Auto) 0.3 Basophils # (Auto) 0.0 CBC Comment DIFF FINAL Differential Comment Prothrombin Time 10.2 Prothromb Time International 0.9 Ratio Activated Partial 23.6 Thromboplast Time Sodium Level 135 Potassium Level 5.2 Chloride Level 99 Carbon Dioxide Level 28.2 Anion Gap 8 Blood Urea Nitrogen 23 Creatinine 5.11 Estimat Glomerular Filtration 11 Rate Random Glucose 190 Calcium Level 10.8 Ethyl Alcohol Level LESS THAN 3 Blood Type O POSITIVE Antibody Screen NEGATIVE Nasal Screen MRSA (PCR) MRSA NOT DETECTED Result Diagram: 05/02/17 18405/02/17 1845 Imaging Last Impressions Head CT 05/03/17 0600 Signed Impressions: Service Date/Time: Wednesday, May 03, 2017 05:30 - CONCLUSION: Stable intracranial hemorrhage. Sony Jarvis MD Femur X-Ray 05/03/17 0000 Signed Impressions: Service Date/Time: Wednesday, May 03, 2017 00:19 - CONCLUSION: No acute disease. Sony Jarvis MD Chest CT 05/02/17 1900 Signed Impressions: Service Date/Time: Tuesday, May 02, 2017 19:44 - CONCLUSION: No change groundglass infiltrates of both lung bases and small pericardial effusion. No acute abnormality demonstrated. Aroldo Brown MD Pelvis X-Ray 05/02/171830 Signed Impressions: Service Date/Time: Tuesday, May 02, 2017 18:37 - CONCLUSION: Potentially a sagittally oriented fracture of the right side of the sacrum. Aroldo Brown MD Maxillofacial CT 05/02/171830 Signed Impressions: Service Date/Time: Tuesday, May 02, 2017 19:36 - CONCLUSION: Intact facial bones. Large left supraorbital soft tissue hematoma. Aroldo Brown MD Cervical Spine CT 05/02/171830 Signed Impressions: Service Date/Time: Tuesday, May 02, 2017 19:36 - CONCLUSION: Intact cervical spine. Aroldo Brown MD Abdomen/Pelvis CT 05/02/171830 Signed Impressions: Service Date/Time: Tuesday, May 02, 2017 19:44 - CONCLUSION: No visceral organ injury, fracture or other acute abnormality. Cholelithiasis, bilateral renal atrophy and cysts and diffusely sclerotic osseous structures. Aroldo Brown MD Assessment and Plan Problem List: (1) ESRD (end stage renal disease) Plan: She will be provided hemodialysis on Friday, Friday and Friday continue to monitor blood work Avoid nephrotoxins Control blood pressure (2) Head injury Plan: Left temporal lobe subarachnoid admitted and right parenchymal hemorrhage (3) Hypertension Plan: Monitor blood pressure (4) DM type 2 with diabetic peripheral neuropathy Plan: Continue with sliding scale insulin Problem Qualifiers (1) Head injury: Qualified Code: S09.90XA - Head injury, initial encounter Mireya Gomes MD May 03, 2017 14:35
[2017-05-03] MEDS: INSULIN ASPART SUPPLEMENTAL SCALE SQ SCH ×2 (16:00→20:52)
--- NOTE | 2017-05-03 18:50 | PD.CONS ---
HPI Service [facility] Consult Requested By Dr. Fregoso Reason for Consult "Multiple medical problems" Primary Care Physician John Genao DO Diagnoses: (1) Head injury (2) Fall down stairs (3) DM type 2 with diabetic peripheral neuropathy (4) Hypertension (5) ESRD (end stage renal disease) (6) Intraparenchymal hemorrhage of brain History of Present Illness The patient is a 56-year-old female who presented to the emergency department following a fall. She apparently tripped and fell down a flight of stairs. She states that she had been feeling dizzy and lightheaded. She reportedly had loss of consciousness. She presented with a left forehead hematoma. She reports nausea and vomiting over the past few days. Review of Systems Constitutional: COMPLAINS OF: Dizziness, DENIES: Fever, Chills, Night Sweats Eyes: COMPLAINS OF: Blurred vision, DENIES: Vision loss Ears, nose, mouth, throat: DENIES: Hearing loss Respiratory: DENIES: Cough, Wheezing, Sputum production, Shortness of breath Cardiovascular: DENIES: Chest pain, Palpitations, Dyspnea on Exertion, Lower Extremity Edema Gastrointestinal: DENIES: Abdominal pain, Constipation, Diarrhea, Nausea, Vomiting Genitourinary: DENIES: Urinary frequency, Urinary incontinence, Urgency, Hematuria, Dysuria, Nocturia Musculoskeletal: DENIES: Joint pain, Muscle aches Integumentary: DENIES: Pruritus, Rash Hematologic/lymphatic: DENIES: Bruising Neurologic: DENIES: Headache Past Family Social History Allergies: Coded Allergies: Linezolid (Verified Allergy, Severe, VOMITING, 04/26/17) Percocet (Verified Allergy, Severe, VOMITING, 04/26/17) Zocor (Verified Allergy, Severe, VOMITING, 04/26/17) Zosyn (Verified Allergy, Severe, VOMITING, 04/26/17) Past Medical History End-stage renal disease Diabetes mellitus type 2 with nephropathy, neuropathy Hypertension Anemia Legally blind Anxiety/depression Hyperlipidemia Past Surgical History Appendectomy Left arm AV fistula section CABG Cataract surgery Reported Medications Tylenol-Codeine #3 (Acetaminophen-Codeine) 300-30 mg Tab 1 Tab PO HS Nexium (Esomeprazole DR) 40 Mg Capdr 40 Mg PO DAILY Levemir Inj (Insulin Detemir) 1,000 unit/ 10 ML Vial 25 Units SQ HS Do not mix with any other Insulin. Cymbalta DR (Duloxetine HCl) 20 Mg Capdr 20 Mg PO DAILY Eryped 200 Liq (Erythromycin Ethylsuccinate) 200 Mg/5 Ml Shikha 200 Mg PO DAILY Combigan Opth Drops (Brimonidine-Timolol Opth Drops) 0.2-0.5% Soln 1 Drop EACH EYE Q12HR Clobetasol Topical (Clobetasol Propionate) 0.05% Cream 1 Applic TOPICAL DAILY Aspirin Low Dose (Aspirin) 81 Mg Chew 81 Mg CHEW DAILY Sensipar (Cinacalcet) 60 Mg Tab 60 Mg PO DAILY Pravachol (Pravastatin) 80 Mg Tab 80 Mg PO DAILY Plavix (Clopidogrel Bisulfate) 75 Mg Tab 75 Mg PO DAILY Metoclopramide (Metoclopramide HCl) 5 Mg Tab 5 Mg PO TIDAC Labetalol (Labetalol HCl) 200 Mg Tab 200 Mg PO BID Family History Diabetes Social History Denies alcohol, tobacco, or illicit drug use. Physical Exam Vital Signs Vital Signs Date Time Temp Pulse Resp B/P Pulse Ox O2 Delivery O2 Flow Rate FiO2 05/03/17 18:00 80 05/03/17 16:00 82 05/03/17 16:00 98.2 82 15 88/51 95 05/03/17 14:00 76 05/03/17 12:00 98.4 78 24 138/59 100 05/03/17 12:00 78 05/03/17 10:00 74 05/03/17 08:00 98.2 74 22 108/48 98 05/03/17 08:00 75 05/03/17 07:00 100 Nasal Cannula 2.00 05/03/17 06:00 79 05/03/17 04:00 98.1 84 15 148/67 98 05/03/17 04:00 84 05/03/17 02:00 88 05/03/17 01:00 100 Room Air 05/03/17 01:00 98.1 88 20 130/60 100 05/02/17 23:44 100 Nasal Cannula 2 05/02/17 23:26 87 18 111/63 100 05/02/17 21:45 85 18 149/67 100 Room Air 05/02/17 20:45 84 18 176/84 100 05/02/17 18:56 83 18 100 Room Air 05/02/17 18:54 98.4 84 18 174/84 100 Room Air Physical Exam GENERAL: Well-nourished, well-developed female in no acute distress. HEENT: Left forehead hematoma with significant swelling of the left eyelid. Pupils equal, round and reactive. Extraocular movements intact. No scleral icterus. No injection or drainage. Oropharynx is clear. Mucous membranes are moist. CARDIOVASCULAR: Regular rate and rhythm without murmurs, gallops, or rubs. RESPIRATORY: Clear to auscultation. No wheezes, rales, or rhonchi. Breathing is non-labored. GASTROINTESTINAL: Abdomen soft, non-tender, nondistended. EXTREMITIES: No lower extremity edema. No calf tenderness. SCDs. PSYCH: Alert and oriented x 3. Laboratory Laboratory Tests Test 05/02/17 05/03/17 18:45 01:14 White Blood Count 6.4 Red Blood Count 3.50 Hemoglobin 12.0 Hematocrit 35.5 Mean Corpuscular Volume 101.5 Mean Corpuscular Hemoglobin 34.4 Mean Corpuscular Hemoglobin 33.9 Concent Red Cell Distribution Width 18.2 Platelet Count 186 Mean Platelet Volume 9.6 Neutrophils (%) (Auto) 65.5 Lymphocytes (%) (Auto) 22.1 Monocytes (%) (Auto) 6.5 Eosinophils (%) (Auto) 5.2 Basophils (%) (Auto) 0.7 Neutrophils # (Auto) 4.2 Lymphocytes # (Auto) 1.4 Monocytes # (Auto) 0.4 Eosinophils # (Auto) 0.3 Basophils # (Auto) 0.0 CBC Comment DIFF FINAL Differential Comment Prothrombin Time 10.2 Prothromb Time International 0.9 Ratio Activated Partial 23.6 Thromboplast Time Sodium Level 135 Potassium Level 5.2 Chloride Level 99 Carbon Dioxide Level 28.2 Anion Gap 8 Blood Urea Nitrogen 23 Creatinine 5.11 Estimat Glomerular Filtration 11 Rate Random Glucose 190 Calcium Level 10.8 Ethyl Alcohol Level LESS THAN 3 Blood Type O POSITIVE Antibody Screen NEGATIVE Nasal Screen MRSA (PCR) MRSA NOT DETECTED Result Diagram: 05/02/17184405/02/17 184 Imaging Last Impressions Head CT 05/03/17 0600 Signed Impressions: Service Date/Time: Wednesday, May 03, 2017 05:30 - CONCLUSION: Stable intracranial hemorrhage. Sony Jarvis MD Femur X-Ray 05/03/17 0000 Signed Impressions: Service Date/Time: Wednesday, May 03, 2017 00:19 - CONCLUSION: No acute disease. Sony Jarivs MD Chest CT 05/02/171899 Signed Impressions: Service Date/Time: Tuesday, May 02, 2017 19:44 - CONCLUSION: No change groundglass infiltrates of both lung bases and small pericardial effusion. No acute abnormality demonstrated. Aroldo Brown MD Pelvis X-Ray 05/02/171830 Signed Impressions: Service Date/Time: Tuesday, May 02, 2017 18:37 - CONCLUSION: Potentially a sagittally oriented fracture of the right side of the sacrum. Aroldo Brown MD Maxillofacial CT 05/02/171830 Signed Impressions: Service Date/Time: Tuesday, May 02, 2017 19:36 - CONCLUSION: Intact facial bones. Large left supraorbital soft tissue hematoma. Aroldo Brown MD Cervical Spine CT 05/02/171830 Signed Impressions: Service Date/Time: Tuesday, May 02, 2017 19:36 - CONCLUSION: Intact cervical spine. Aroldo Brown MD Abdomen/Pelvis CT 05/02/171830 Signed Impressions: Service Date/Time: Tuesday, May 02, 2017 19:44 - CONCLUSION: No visceral organ injury, fracture or other acute abnormality. Cholelithiasis, bilateral renal atrophy and cysts and diffusely sclerotic osseous structures. Aroldo Brown MD Assessment and Plan Assessment and Plan 1. Closed head injury: Management per trauma service, neurosurgery. 2. Hypertension: Patient's blood pressure has been fluctuating. She has been hypotensive at times. She became orthostatic when physical therapy got her out of bed. Monitor blood pressure closely. Hold antihypertensive medications at this time. Vasotec, clonidine as needed for significant blood pressure elevations. 3. Diabetes mellitus, type II: Monitor Accu-Cheks and cover with sliding scale insulin. Levemir on hold. 4. End-stage renal disease: Hemodialysis Friday/Friday/Friday per nephrology. 5. Hyperlipidemia: Continue statin. 6. DVT prophylaxis: SCDs. Hold chemical prophylaxis secondary to head injury. Problem Qualifiers (1) Head injury: Qualified Code: S09.90XA - Head injury, initial encounter (2) Fall down stairs: Qualified Code: W10.8XXA - Fall down stairs, initial encounter Rajendra Holt MD May 03, 2017 18:50
[2017-05-03] MEDS: MAGNESIUM HYDROXIDE SUSP 30 ML CUP PO SCH (20:15)
[2017-05-03] MEDS: PRAVASTATIN SOD 80 MG TAB PO SCH (20:16)
[2017-05-04] VITALS (14 sets, daily range): BP systolic 102–153; BP diastolic 52–77; PULSE 72–80; RESP 11–26; TEMP 98.1–98.9; O2SAT 95–100
[2017-05-04] MEDS: PANTOPRAZOLE SODIUM 40 MG VIAL IVP SCH (00:22)
[2017-05-04] MEDS: CHLORHEXIDINE GLUCONATE 2 % 1 PACK (2 CLOTHS) TOP SCH (03:16)
[2017-05-04] MEDS: INSULIN ASPART SUPPLEMENTAL SCALE SQ SCH ×4 (06:27→20:05)
--- NOTE | 2017-05-04 07:20 | HHI.NSPN ---
(Michele Novak) History Chief Complaint: Mild TBI. (Michele Novak) Interval History This is a 56-year-old -[place] lady who apparently tripped and fell a flight of stairs and struck her head with positive loss of consciousness. The patient relates that she has diabetic neuropathy distally in her feet as well as is blind from diabetes also. She was brought to [facility] and a trauma workup undertaken including a CT scan of the head which reveals a traumatic subarachnoid hemorrhage involving the left insular and lateral Sylvian fissure along with a left temporal lobe and right frontal lobe contusion without mass effect or midline shift. No skull fractures noted. CT of the cervical spine does not reveal any fractures. Her main complaint is left thigh pain and right scapular and shoulder area pain. Initially she was nauseous but this has also improved. 05/04/17: Pt awakens to voice. Denies headache. No nausea or vomiting. No paresthesias in face or extremities. Follows commands well. Complains of soreness all over. (Michele Novak) Review of Systems General: Negative for: fever, chills, insomnia Respiratory: Negative for: shortness of breath, cough, sputum Cardiovascular: Negative for: chest pain Gastrointestinal: Negative for: nausea, vomitting, diarrhea, constipation ( Michele Novak) Exam Results Vital Signs Date Time Temp Pulse Resp B/P Pulse Ox O2 Delivery O2 Flow Rate FiO2 05/04/17 06:00 72 05/04/17 04:00 98.8 15 102/52 97 05/03/17 23:46 Nasal Cannula 2.00 Intake and Output 05/03/17 05/03/17 05/04/17 08:00 16:00 00:00 Intake Total 0 ml 0 ml 400 ml Output Total 0 ml 0 ml 0 ml Balance 0 ml 0 ml 400 ml (Michele Novak) Physical Examination Resp: CTA bilaterally Heart: NSR no murmurs Abd: Soft positive bs Skin: Left periorbital edema improving, left eye still swollen closed at rest but able to manually open. Muscle: Pt moves all 4 extremities with symmetric strength. Neuro: Pt awakens to voice. Follows commands. Speech clear and appropriate. Pupils equal. (Michele Novak) Lab, Micro, Other Results Last Impressions Head CT 05/03/17 0600 Signed Impressions: Service Date/Time: Wednesday, May 03, 2017 05:30 - CONCLUSION: Stable intracranial hemorrhage. Sony Jarvis MD Femur X-Ray 05/03/17 0000 Signed Impressions: Service Date/Time: Wednesday, May 03, 2017 00:19 - CONCLUSION: No acute disease. Sony Jarvis MD Chest CT 05/02/17 1900 Signed Impressions: Service Date/Time: Tuesday, May 02, 2017 19:44 - CONCLUSION: No change groundglass infiltrates of both lung bases and small pericardial effusion. No acute abnormality demonstrated. Aroldo Brown MD Pelvis X-Ray 05/02/171830 Signed Impressions: Service Date/Time: Tuesday, May 02, 2017 18:37 - CONCLUSION: Potentially a sagittally oriented fracture of the right side of the sacrum. Aroldo Brown MD Maxillofacial CT 05/02/171830 Signed Impressions: Service Date/Time: Tuesday, May 02, 2017 19:36 - CONCLUSION: Intact facial bones. Large left supraorbital soft tissue hematoma. Aroldo Brown MD Cervical Spine CT 05/02/171830 Signed Impressions: Service Date/Time: Tuesday, May 02, 2017 19:36 - CONCLUSION: Intact cervical spine. Aroldo Brown MD Abdomen/Pelvis CT 05/02/171830 Signed Impressions: Service Date/Time: Tuesday, May 02, 2017 19:44 - CONCLUSION: No visceral organ injury, fracture or other acute abnormality. Cholelithiasis, bilateral renal atrophy and cysts and diffusely sclerotic osseous structures. Aroldo Brown MD 05/03/17 05/03/17 05/04/17 15:00 23:00 07:00 Intake Total 0 ml 400 ml 150 ml Output Total 0 ml 0 ml 0 ml Balance 0 ml 400 ml 150 ml Intake Oral 0 ml 400 ml 150 ml IV Total 0 ml 0 ml 0 ml Output Urine Total 0 ml 0 ml 0 ml # Bowel Movements 0 0 0 (Michele Novak) Medical Decision Making Impression and Plan A: 1. Mild traumatic brain injury with a left lateral Sylvian fissure and insular traumatic subarachnoid hemorrhage along with small left temporal and right frontal lobe contusions without mass effect. 2. Insulin-dependent diabetes mellitus with associated complications including diabetic retinopathy/blindness and peripheral neuropathy. 3. End-stage renal disease on hemodialysis. PLAN continue to monitor Neuro exam. Continue with current care/ medical care Neurosurgically stable to transfer to floor when okay with medicine. Recommend Neuro floor 5N. (Michele Novak) Attending Statement The exam, history, and the medical decision-making described in the above note were completed with the assistance of the mid-level provider. I reviewed and agree with the findings presented. I attest that I had a [id number] encounter with the patient on the same day, and personally performed and documented my assessment and findings in the medical record. Overall neurologic exam stables with complaints of headache and left thigh pain. Continue observation and pain control and increase activities as tolerated. ( Bossman Moore MD) Michlee Novak May 04, 2017 07:20 Bossman Moore MD May 04, 2017 11:25
[2017-05-04] MEDS: DOCUSATE SODIUM 100 MG CAP PO SCH ×2 (08:22→20:05)
[2017-05-04] MEDS: CINACALCET HYDROCHLORIDE 30 MG TAB PO SCH (08:22)
[2017-05-04] MEDS: LABETALOL HCL 200 MG TAB PO SCH (08:22)
[2017-05-04] MEDS: METOCLOPRAMIDE HCL 10 MG TAB PO SCH ×3 (08:23→16:25)
[2017-05-04] MEDS: MORPHINE SULFATE 8 MG/ML INJ IV PUSH PRN (08:23)
[2017-05-04] MEDS: ERYTHROMYCIN ETHYLSUCCINATE 200 MG/5 ML SUSP 100 ML BOTTLE PO SCH (08:25)
[2017-05-04] MEDS: DULoxetine HCl DR 20 MG CAP PO SCH (08:29)
--- NOTE | 2017-05-04 09:12 | HHI.PR ---
Subjective Remarks Follow-up hypertension, diabetes, leg pain. The patient is reporting significant pain in the left upper leg. She states that it is getting worse. Reports significant tenderness to even light palpation. Objective Vitals Vital Signs Date Time Temp Pulse Resp B/P Pulse Ox O2 Delivery O2 Flow Rate FiO2 05/04/17 06:00 72 05/04/17 04:00 98.8 72 15 102/52 97 05/04/17 04:00 72 05/04/17 02:00 75 05/04/17 00:00 98.4 76 17 107/58 98 05/04/17 00:00 76 05/03/17 23:46 96 Nasal Cannula 2.00 05/03/17 22:00 78 05/03/17 20:30 148/68 05/03/17 20:00 99.1 78 20 181/74 100 05/03/17 20:00 78 05/03/17 19:00 98 Nasal Cannula 2.00 05/03/17 18:00 80 05/03/17 16:00 82 05/03/17 16:00 98.2 82 15 88/51 95 05/03/17 14:00 76 05/03/17 12:00 98.4 78 24 138/59 100 05/03/17 12:00 78 05/03/17 10:00 74 I/O 05/03/17 05/03/17 05/03/17 05/04/17 05/04/17 05/04/17 07:00 15:00 23:00 07:00 15:00 23:00 Intake Total 0 ml 0 ml 400 ml 150 ml Output Total 0 ml 0 ml 0 ml 0 ml Balance 0 ml 0 ml 400 ml 150 ml Intake Oral 0 ml 400 ml 150 ml IV Total 0 ml 0 ml 0 ml 0 ml Output Urine Total 0 ml 0 ml 0 ml 0 ml # Bowel Movements 0 0 0 0 Result Diagram: 05/02/17184405/02/17 184 Imaging Last Impressions Head CT 05/03/17 0600 Signed Impressions: Service Date/Time: Wednesday, May 03, 2017 05:30 - CONCLUSION: Stable intracranial hemorrhage. Sony Jarvis MD Femur X-Ray 05/03/17 0000 Signed Impressions: Service Date/Time: Wednesday, May 03, 2017 00:19 - CONCLUSION: No acute disease. Sony Jarvis MD Chest CT 05/02/171899 Signed Impressions: Service Date/Time: Tuesday, May 02, 2017 19:44 - CONCLUSION: No change groundglass infiltrates of both lung bases and small pericardial effusion. No acute abnormality demonstrated. Aroldo Brown MD Pelvis X-Ray 05/02/171830 Signed Impressions: Service Date/Time: Tuesday, May 02, 2017 18:37 - CONCLUSION: Potentially a sagittally oriented fracture of the right side of the sacrum. Aroldo Brown MD Maxillofacial CT 05/02/171830 Signed Impressions: Service Date/Time: Tuesday, May 02, 2017 19:36 - CONCLUSION: Intact facial bones. Large left supraorbital soft tissue hematoma. Aroldo Brown MD Cervical Spine CT 05/02/171830 Signed Impressions: Service Date/Time: Tuesday, May 02, 2017 19:36 - CONCLUSION: Intact cervical spine. Aroldo Brown MD Abdomen/Pelvis CT 05/02/171830 Signed Impressions: Service Date/Time: Tuesday, May 02, 2017 19:44 - CONCLUSION: No visceral organ injury, fracture or other acute abnormality. Cholelithiasis, bilateral renal atrophy and cysts and diffusely sclerotic osseous structures. Aroldo Brown MD Objective Remarks General: No acute distress. HEENT: Hematoma overlying left forehead with left periorbital swelling. Heart: Regular rate and rhythm. No murmur. Lungs: Clear to auscultation bilaterally. No wheezes, rales, or rhonchi. Breathing is nonlabored. Abdomen: Soft, nontender, nondistended. Extremities: No lower extremity edema. Significant tenderness of the left upper leg. Psych: Alert and oriented. Procedures None Urinary Catheter: No Vascular Central Line Catheter: No A/P Problem List: (1) Head injury ICD Code: S09.90XA Status: Acute (2) Intraparenchymal hemorrhage of brain ICD Code: I61.9 Status: Acute (3) Fall down stairs ICD Code: W10.8XXA Status: Acute (4) DM type 2 with diabetic peripheral neuropathy ICD Code: E11.42 Status: Chronic (5) Hypertension ICD Code: I10 Status: Chronic (6) ESRD (end stage renal disease) ICD Code: N18.6 Status: Chronic (7) Left leg pain ICD Code: M79.605 Status: Acute Assessment and Plan 1. Closed head injury: Management per trauma service, neurosurgery. 2. Hypertension: Patient's blood pressure has been fluctuating. She has been hypotensive at times. She became orthostatic when physical therapy got her out of bed. Monitor blood pressure closely. Decrease labetalol. Vasotec, clonidine as needed for significant blood pressure elevations. 3. Diabetes mellitus, type II: Monitor Accu-Cheks and cover with sliding scale insulin. Levemir on hold. 4. End-stage renal disease: Hemodialysis Friday/Friday/Friday per nephrology. 5. Hyperlipidemia: Continue statin. 6. DVT prophylaxis: SCDs. Hold chemical prophylaxis secondary to head injury. 7. Left leg pain: Patient is reporting significant pain in the leg with tenderness to even light palpation. X-ray showed no fracture on presentation to the ER. Check CT of the leg. Problem Qualifiers (1) Head injury: Qualified Code: S09.90XA - Head injury, initial encounter (2) Fall down stairs: Qualified Code: W10.8XXA - Fall down stairs, initial encounter Rajendra Holt MD May 04, 2017 09:12
[2017-05-04 11:35] LABS: AUTOMATED NEUTROPHIL # 3.6 TH/MM3 (1.8-7.7); BASOPHIL % 0.6 % (0.0-2.0); EOSINOPHIL # 0.3 TH/MM3 (0-0.4); HEMATOCRIT 32.9 % (35.0-46.0); HEMO FLAGS DIFF FINAL; LYMPH % 27.9 % (9.0-44.0); LYMPHOCYTE # 1.7 TH/MM3 (1.0-4.8); MEAN CELL VOLUME 102.7 FL (80.0-100.0); MEAN CORPUSCULAR HEMOGLOBIN 33.4 PG (27.0-34.0); MEAN CORPUSCULAR HGB CONC 32.5 % (32.0-36.0); MONO % 7.3 % (0.0-8.0); NEUT % 59.2 % (16.0-70.0); PLATELET COUNT 189 TH/MM3 (150-450); RED CELL DISTRIBUTION WIDTH 17.6 % (11.6-17.2); WHITE BLOOD COUNT 6.1 TH/MM3 (4.0-11.0)
[2017-05-04 12:19] LABS: ALKALINE PHOSPHATASE 196 U/L (45-117); ALT (GPT) 24 U/L (10-53); ANION GAP 9 MEQ/L (5-15); AST (GOT) 25 U/L (15-37); BICARBONATE 29.3 MEQ/L (21.0-32.0); BLOOD UREA NITROGEN 47 MG/DL (7-18); CHLORIDE 98 MEQ/L (98-107); GLOMERULAR FILTRATION RATE 5 ML/MIN (>89); POTASSIUM 4.5 MEQ/L (3.5-5.1); SODIUM (NA) 136 MEQ/L (136-145)
[2017-05-04] MEDS: ONDANSETRON HCL 4 MG/2 ML VIAL IV PRN (13:12)
--- NOTE | 2017-05-04 13:18 | HHI.NPPN ---
Subjective History of Present Illness ESRD with history of fall Additional Remarks Complaining of left leg Review of Systems Musculoskeletal MS: Pain/Stiffness Objective Data Data 05/03/17 05/04/17 19:00 07:00 Intake Total 0 ml 550 ml Output Total 0 ml 0 ml Balance 0 ml 550 ml Intake Oral 0 ml 550 ml IV Total 0 ml 0 ml Output Urine Total 0 ml 0 ml # Bowel Movements 0 0 Vital Signs Date Time Temp Pulse Resp B/P Pulse Ox O2 Delivery O2 Flow Rate FiO2 05/04/17 10:00 79 05/04/17 08:04 100 Nasal Cannula 2.00 05/04/17 08:00 79 05/04/17 08:00 100 Nasal Cannula 2.00 05/04/17 08:00 98.1 73 24 153/77 100 05/04/17 06:00 72 05/04/17 04:00 98.8 72 15 102/52 97 05/04/17 04:00 72 05/04/17 02:00 75 05/04/17 00:00 98.4 76 17 107/58 98 05/04/17 00:00 76 05/03/17 23:46 96 Nasal Cannula 2.00 05/03/17 22:00 78 05/03/17 20:30 148/68 05/03/17 20:00 99.1 78 20 181/74 100 05/03/17 20:00 78 05/03/17 19:00 98 Nasal Cannula 2.00 05/03/17 18:00 80 05/03/17 16:00 82 05/03/17 16:00 98.2 82 15 88/51 95 05/03/17 14:00 76 -: 05/04/17 1031 05/04/17 1031 Physical Exam General Appearance: Well Developed, Well Nourished Neck Neck Exam: Neck Supple Pulmonary Resp Exam: Clear Bilaterally, Breath Sounds Equal Cardiology CV Exam: Regular, Normal Sinus Rhythm Gastrointestinal/Abdomen GI Exam: Soft, Non-Tender, Bowel Sounds Present Extremeties Extremities Exam: No Edema Neurologic Neuro Exam: Alert Assessment/Plan Problem List: (1) ESRD (end stage renal disease) Plan: She will be provided hemodialysis on Friday, Friday and Friday continue to monitor blood work Avoid nephrotoxins Control blood pressure Dr. Suggs to follow (2) Head injury Plan: Left temporal lobe subarachnoid admitted and right parenchymal hemorrhage (3) Hypertension Plan: Monitor blood pressure (4) DM type 2 with diabetic peripheral neuropathy Plan: Continue with sliding scale insulin Problem Qualifiers (1) Head injury: Qualified Code: S09.90XA - Head injury, initial encounter Mireya Gomes MD May 04, 2017 13:17
--- NOTE | 2017-05-04 14:00 | HHI.CCPN ---
Subjective Brief History This is a patient who is blind, has end-stage renal disease on dialysis who was walking and tripped, said she felt dizzy and fell down a flight of stairs. She was brought in and evaluated by the emergency room physician and noted to have a closed head injury. Trauma service was requested for admission. On my arrival, the patient is laying in a stretcher in no acute distress although she complains of pain in her left leg, forehead and right shoulder. She did have loss of consciousness. She denies chest pains or shortness of breath, no abdominal pain, no back pain. Patient is diagnosed with right temporoparietal subarachnoid and subdural hemorrhage End-stage diabetes mellitus and renal failure Dialysis Hypertension 24 Hour Review/Hospital Course 05/03 -awake -alert GCS 15 CT head [facility] HD -normal NS consulted 05/04/17 The last 24 hours patient has been awake alert and oriented She is legally blind although she can see shadows Neurologically patient is improving is able to swallow and eat and can be transferred to the floor at this time Abdomen is soft with hypoactive bowel sounds and tender in mid abdomen however this is very commonly seen in diabetic patients with dialysis and I do not believe patient has any additional trauma Pain in the left thigh and no femur fracture noted this is soft tissue injury Objective Vital Signs Date Time Temp Pulse Resp B/P Pulse Ox O2 Delivery O2 Flow Rate FiO2 05/04/17 10:00 79 05/04/17 08:04 100 Nasal Cannula 2.00 05/04/17 08:00 98.1 24 153/77 Intake and Output 05/03/17 05/03/17 05/04/17 08:00 16:00 00:00 Intake Total 0 ml 0 ml 400 ml Output Total 0 ml 0 ml 0 ml Balance 0 ml 0 ml 400 ml Result Diagram: 05/04/17 1031 05/04/17 1031 Exam [employer] Awake alert oriented Hemodynamic/Cardiac Hemodynamically stable Pulmonary/Respiratory Bilateral good breath sounds patient is doing well and cooperating with care Abdomen/GI Nutrition Abdomen is soft somewhat tender in mid abdomen no rebound no guarding and this is common finding in renal patient's has no trauma significance at this time Renal/I&O On dialysis through a left AV fistula Assessment and Plan Plan [facility]- ASA/plavix/ESRD gcs 15 neuro intact NS on board start clears renal consult ambulate PT pain control Attestation Critical care time 35 minutes Gil Kim MD May 04, 2017 14:00
[2017-05-04] MEDS: MAGNESIUM HYDROXIDE SUSP 30 ML CUP PO SCH (20:04)
[2017-05-04] MEDS: PRAVASTATIN SOD 80 MG TAB PO SCH (20:04)
[2017-05-04] MEDS: LABETALOL HCL 100 MG TAB PO SCH (20:05)
[2017-05-05] VITALS (12 sets, daily range): BP systolic 99–129; BP diastolic 47–60; PULSE 72–89; RESP 12–24; TEMP 97.9–99.3; O2SAT 94–99
[2017-05-05] MEDS: PANTOPRAZOLE SODIUM 40 MG VIAL IVP SCH (00:27)
[2017-05-05] MEDS: CHLORHEXIDINE GLUCONATE 2 % 1 PACK (2 CLOTHS) TOP SCH (03:02)
[2017-05-05 05:02] LABS: AUTOMATED NEUTROPHIL # 3.3 TH/MM3 (1.8-7.7); BASOPHIL # 0.1 TH/MM3 (0-0.2); BASOPHIL % 1.1 % (0.0-2.0); EOSINOPHIL # 0.5 TH/MM3 (0-0.4); EOSINOPHIL % 7.4 % (0.0-4.0); HEMATOCRIT 29.8 % (35.0-46.0); HEMO FLAGS DIFF FINAL; LYMPH % 30.6 % (9.0-44.0); LYMPHOCYTE # 1.9 TH/MM3 (1.0-4.8); MEAN CORPUSCULAR HEMOGLOBIN 34.1 PG (27.0-34.0); MEAN CORPUSCULAR HGB CONC 32.8 % (32.0-36.0); MONO % 7.7 % (0.0-8.0); NEUT % 53.2 % (16.0-70.0); PLATELET COUNT 181 TH/MM3 (150-450); RED BLOOD COUNT 2.86 MIL/MM3 (4.00-5.30); WHITE BLOOD COUNT 6.2 TH/MM3 (4.0-11.0)
--- NOTE | 2017-05-05 05:17 | RADRPT ---
EXAM DATE/TIME: 05/05/2017 04:45 [facility] COMPARISON: FEMUR LEFT (AP & LAT/2VWS), May 03, 2017, 0:19. INDICATIONS : Left upper leg pain; rule out occult fracture. Unable to ambulate. RADIATION DOSE: 13.26 CTDIvol (mGy) MEDICAL HISTORY : Diabetes mellitus type 2. Renal failure, chronic. Cardiovascular disease SURGICAL HISTORY : Appendectomy. CABG ENCOUNTER: Subsequent ACUITY: 2 days PAIN SCALE: 4/10 LOCATION: Left leg TECHNIQUE: Volumetric scanning of the femur was performed. Using automated exposure control and adjustment of t he mA and/or kV according to patient size, radiation dose was kept as low as reasonably achievable to obtain optimal diagnostic quality images. DICOM format image data is available electronically for review and comparison. FINDINGS: BONES: No evidence of fracture. Alignment is within normal limits. JOINTS: Mild degenerative arthritis at the right hip joint. There is narrowing of the joint space. SOFT TISSUES: Muscles, tendons, and neurovascular structures are grossly unremarkable. No evidence of mass, organiz ed fluid collection, or foreign body CONCLUSION: 1. There are primary degenerative changes at the hip joint. 2. No bony fracture or joint dislocation. Tank Lebron MD on May 05, 2017 at 5:12 Board Certified Radiologist. This report was verified electronically.
[2017-05-05 05:22] LABS: BICARBONATE 28.9 MEQ/L (21.0-32.0); MAGNESIUM 2.2 MG/DL (1.5-2.5); POTASSIUM 5.5 MEQ/L (3.5-5.1)
[2017-05-05] MEDS: INSULIN ASPART SUPPLEMENTAL SCALE SQ SCH ×4 (06:19→20:43)
[2017-05-05] MEDS: LABETALOL HCL 100 MG TAB PO SCH ×2 (09:00→20:43)
[2017-05-05] MEDS: DOCUSATE SODIUM 100 MG CAP PO SCH ×2 (09:00→20:43)
--- NOTE | 2017-05-05 09:29 | HHI.NPPN ---
Subjective General Problems: Anemia, Hypertension Renal Failure: Chronic, End Stage Renal Disease Interval History Seen during dialysis. She is awake/oriented with hematoma above left eye. Having some dizziness. (Ladonna Mercedes) Review of Systems Eyes Eyes Remarks legally blind at baseline (Ladonna Mercedes) Musculoskeletal MS: Pain/Stiffness MS Remarks back pain s/p fall (Ladonna Mercedes) Neuro Neuro: Dizziness (Ladonna Mercedes) Objective Data Data 05/04/17 05/05/17 19:00 07:00 Intake Total 660 ml 800 ml Output Total 0 ml 0 ml Balance 660 ml 800 ml Intake Oral 660 ml 800 ml IV Total 0 ml 0 ml Output Urine Total 0 ml 0 ml # Bowel Movements 0 0 Vital Signs Date Time Temp Pulse Resp B/P Pulse Ox O2 Delivery O2 Flow Rate FiO2 05/05/17 08:35 98.9 75 20 99/47 99 05/05/17 08:27 99 Nasal Cannula 2.00 05/05/17 06:00 74 05/05/17 04:00 98.4 72 12 120/57 96 05/05/17 04:00 72 05/05/17 02:00 72 05/05/17 00:00 76 05/05/17 00:00 98.2 76 14 129/59 99 05/04/17 23:02 99 Nasal Cannula 2.00 05/04/17 22:00 80 05/04/17 20:00 74 05/04/17 20:00 98.4 74 20 130/60 100 05/04/17 19:00 99 Nasal Cannula 2.00 05/04/17 18:00 72 05/04/17 16:00 76 05/04/17 16:00 98.9 76 11 119/59 95 05/04/17 14:00 80 05/04/17 12:00 76 05/04/17 12:00 98.2 76 26 108/55 100 05/04/17 10:00 79 (Ladonna Mercedes) -: 05/05/17 0359 05/05/17 0359 Imaging Last Impressions Lower Extremity CT 05/04/17 0000 Signed Impressions: Service Date/Time: Friday, May 05, 2017 04:45 - CONCLUSION: 1. There are primary degenerative changes at the hip joint. 2. No bony fracture or joint dislocation. Tank Lebron MD Head CT 05/03/17 0600 Signed Impressions: Service Date/Time: Wednesday, May 03, 2017 05:30 - CONCLUSION: Stable intracranial hemorrhage. Sony Jarvis MD Femur X-Ray 05/03/17 0000 Signed Impressions: Service Date/Time: Wednesday, May 03, 2017 00:19 - CONCLUSION: No acute disease. Sony Jarvis MD Chest CT 05/02/17 1900 Signed Impressions: Service Date/Time: Tuesday, May 02, 2017 19:44 - CONCLUSION: No change groundglass infiltrates of both lung bases and small pericardial effusion. No acute abnormality demonstrated. Aroldo Brown MD Pelvis X-Ray 05/02/171830 Signed Impressions: Service Date/Time: Tuesday, May 02, 2017 18:37 - CONCLUSION: Potentially a sagittally oriented fracture of the right side of the sacrum. Aroldo Brown MD Maxillofacial CT 05/02/171830 Signed Impressions: Service Date/Time: Tuesday, May 02, 2017 19:36 - CONCLUSION: Intact facial bones. Large left supraorbital soft tissue hematoma. Aroldo Brown MD Cervical Spine CT 05/02/171830 Signed Impressions: Service Date/Time: Tuesday, May 02, 2017 19:36 - CONCLUSION: Intact cervical spine. Aroldo Brown MD Abdomen/Pelvis CT 05/02/171830 Signed Impressions: Service Date/Time: Tuesday, May 02, 2017 19:44 - CONCLUSION: No visceral organ injury, fracture or other acute abnormality. Cholelithiasis, bilateral renal atrophy and cysts and diffusely sclerotic osseous structures. Aroldo rBown MD (Ladonna Mercedes) Physical Exam General Appearance: Well Developed, Well Nourished, Comfortable (Ladonna Mercedes) Throat Throat Exam: Oral Mucosa Compton & Moist (Ladonna Mercedes) Neck Neck Exam: Neck Supple (Ladonna Mercedes) Pulmonary Resp Exam: Clear Bilaterally, Breath Sounds Equal, No Distress (Ladonna Mercedes) Cardiology CV Exam: Regular, Normal Sinus Rhythm, Good Perfusion (Ladonna Mercedes) Gastrointestinal/Abdomen GI Exam: Soft, Non-Tender, Bowel Sounds Present (Ladonna Mercedes) Musculoskeletal MS Exam: Joints Intact, Good Strength (Ladonna Mercedes) Integumentary Skin Exam: Warm, Dry Skin Remarks hematoma above left eye (Ladonna Mercedes) Extremeties Extremities Exam: No Edema, Pedal Pulses Palpable (Ladonna Mercedes) Neurologic Neuro Exam: Alert, Awake, Oriented, Speech Clear, Moving All Extremities ( Ladonna Mercedes) Psychiatric Psych Exam: Appropriate Responses (Ladonna Mercedes) Assessment/Plan Discussed Condition With: Patient Assessment Summary: Anemia of CKD Electrolyte Assessment: Hyperkalemia Problem List: (1) ESRD (end stage renal disease) Plan: Seen during dialysis on a 2K, 400 BFR, goal 2L continue MWF hemodialysis support she has AVF on left for dialysis, functions well no acute renal concerns avoid IVF administration, gadolinium is contraindicated in patients with ESRD intermittent renal panel ordered potassium restriction in diet (2) Head injury Plan: s/p fall imaging confirms Left temporal lobe subarachnoid admitted and right parenchymal hemorrhage neurosurgery is following, non surgical management monitor neuro status (3) Hypertension Plan: Monitor blood pressure, it has been labile she is on labetalol and PRN vasotec (4) DM type 2 with diabetic peripheral neuropathy Plan: Continue with insulin regimen, goal of glucose is 140-180 mg/dL. (5) Anemia Plan: on Epogen with dialysis (6) Metabolic bone disease Plan: start renvela with meals (Ladonna Mercedes) Plan patient was seen and examined. Seen during dialysis. Notes were reviewed. Non surgical management for intracranial bleeding. No evidence of increase in intracranial pressure. Continue HD. (Sai Suggs MD) Problem Qualifiers (1) Head injury: Qualified Code: S09.90XA - Head injury, initial encounter Ladonna Mercedes May 05, 2017 09:29 Sai Suggs MD May 05, 2017 10:52
--- NOTE | 2017-05-05 09:54 | HHI.PR ---
Subjective Remarks Follow-up leg pain, hypertension, diabetes. Patient seen in dialysis. She states that her leg feels much better today. filtering machine tender, but much less painful otherwise. She reports chest pain with movement, but not at rest. Objective Vitals Vital Signs Date Time Temp Pulse Resp B/P Pulse Ox O2 Delivery O2 Flow Rate FiO2 05/05/17 08:35 98.9 75 20 99/47 99 05/05/17 08:27 99 Nasal Cannula 2.00 05/05/17 06:00 74 05/05/17 04:00 98.4 72 12 120/57 96 05/05/17 04:00 72 05/05/17 02:00 72 05/05/17 00:00 76 05/05/17 00:00 98.2 76 14 129/59 99 05/04/17 23:02 99 Nasal Cannula 2.00 05/04/17 22:00 80 05/04/17 20:00 74 05/04/17 20:00 98.4 74 20 130/60 100 05/04/17 19:00 99 Nasal Cannula 2.00 05/04/17 18:00 72 05/04/17 16:00 76 05/04/17 16:00 98.9 76 11 119/59 95 05/04/17 14:00 80 05/04/17 12:00 76 05/04/17 12:00 98.2 76 26 108/55 100 05/04/17 10:00 79 I/O 05/04/17 05/04/17 05/04/17 05/05/17 05/05/17 05/05/17 07:00 15:00 23:00 07:00 15:00 23:00 Intake Total 150 ml 660 ml 500 ml 300 ml Output Total 0 ml 0 ml 0 ml 0 ml Balance 150 ml 660 ml 500 ml 300 ml Intake Oral 150 ml 660 ml 500 ml 300 ml IV Total 0 ml 0 ml 0 ml 0 ml Output Urine Total 0 ml 0 ml 0 ml 0 ml # Bowel Movements 0 0 0 0 Result Diagram: 05/05/17 0359 05/05/17 0359 Imaging Last Impressions Lower Extremity CT 05/04/17 0000 Signed Impressions: Service Date/Time: Friday, May 05, 2017 04:45 - CONCLUSION: 1. There are primary degenerative changes at the hip joint. 2. No bony fracture or joint dislocation. Tank Lebron MD Head CT 05/03/17 0600 Signed Impressions: Service Date/Time: Wednesday, May 03, 2017 05:30 - CONCLUSION: Stable intracranial hemorrhage. Sony Jarvis MD Femur X-Ray 05/03/17 0000 Signed Impressions: Service Date/Time: Wednesday, May 03, 2017 00:19 - CONCLUSION: No acute disease. Sony Jarvis MD Chest CT 05/02/17 1900 Signed Impressions: Service Date/Time: Tuesday, May 02, 2017 19:44 - CONCLUSION: No change groundglass infiltrates of both lung bases and small pericardial effusion. No acute abnormality demonstrated. Aroldo Brown MD Pelvis X-Ray 05/02/171830 Signed Impressions: Service Date/Time: Tuesday, May 02, 2017 18:37 - CONCLUSION: Potentially a sagittally oriented fracture of the right side of the sacrum. Aroldo Brown MD Maxillofacial CT 05/02/171830 Signed Impressions: Service Date/Time: Tuesday, May 02, 2017 19:36 - CONCLUSION: Intact facial bones. Large left supraorbital soft tissue hematoma. Aroldo Brown MD Cervical Spine CT 05/02/171830 Signed Impressions: Service Date/Time: Tuesday, May 02, 2017 19:36 - CONCLUSION: Intact cervical spine. Aroldo Brown MD Abdomen/Pelvis CT 05/02/171830 Signed Impressions: Service Date/Time: Tuesday, May 02, 2017 19:44 - CONCLUSION: No visceral organ injury, fracture or other acute abnormality. Cholelithiasis, bilateral renal atrophy and cysts and diffusely sclerotic osseous structures. Aroldo Brown MD Objective Remarks General: No acute distress. HEENT: Hematoma overlying left forehead with left periorbital swelling. Heart: Regular rate and rhythm. No murmur. Lungs: Clear to auscultation bilaterally. No wheezes, rales, or rhonchi. Breathing is nonlabored. Abdomen: Soft, nontender, nondistended. Extremities: No lower extremity edema. Tenderness to palpation of the left upper leg. Psych: Alert and oriented. Procedures None Urinary Catheter: No Vascular Central Line Catheter: No A/P Problem List: (1) Head injury ICD Code: S09.90XA Status: Acute (2) Intraparenchymal hemorrhage of brain ICD Code: I61.9 Status: Acute (3) Fall down stairs ICD Code: W10.8XXA Status: Acute (4) DM type 2 with diabetic peripheral neuropathy ICD Code: E11.42 Status: Chronic (5) Hypertension ICD Code: I10 Status: Chronic (6) ESRD (end stage renal disease) ICD Code: N18.6 Status: Chronic (7) Left leg pain ICD Code: M79.605 Status: Acute Assessment and Plan 1. Closed head injury: Management per trauma service, neurosurgery. 2. Hypertension: Patient's blood pressure has been fluctuating. She has been hypotensive at times. She became orthostatic when physical therapy got her out of bed. Monitor blood pressure closely. Continue labetalol at decreased dose. Vasotec, clonidine as needed for significant blood pressure elevations. 3. Diabetes mellitus, type II: Monitor Accu-Cheks and cover with sliding scale insulin. Levemir on hold. 4. End-stage renal disease: Hemodialysis Friday/Friday/Friday per nephrology. 5. Hyperlipidemia: Continue statin. 6. DVT prophylaxis: SCDs. Hold chemical prophylaxis secondary to head injury. 7. Left leg pain: Improving. X-ray showed no fracture on presentation to the ER. CT of the leg shows no acute injury. Problem Qualifiers (1) Head injury: Qualified Code: S09.90XA - Head injury, initial encounter (2) Fall down stairs: Qualified Code: W10.8XXA - Fall down stairs, initial encounter Rajendra Holt MD May 05, 2017 09:53
[2017-05-05] MEDS: METOCLOPRAMIDE HCL 10 MG TAB PO SCH ×3 (12:00→17:55)
[2017-05-05] MEDS: SEVELAMER CARBONATE 800 MG TAB PO SCH ×2 (13:47→17:55)
[2017-05-05] MEDS: ERYTHROMYCIN ETHYLSUCCINATE 200 MG/5 ML SUSP 100 ML BOTTLE PO SCH (13:47)
[2017-05-05] MEDS: CINACALCET HYDROCHLORIDE 30 MG TAB PO SCH (13:47)
[2017-05-05] MEDS: DULoxetine HCl DR 20 MG CAP PO SCH (13:47)
--- NOTE | 2017-05-05 15:47 | HHI.NSPN ---
(Michele Novak) History Chief Complaint: Mild TBI. (Michele Novak) Interval History This is a 56-year-old -[place] lady who apparently tripped and fell a flight of stairs and struck her head with positive loss of consciousness. The patient relates that she has diabetic neuropathy distally in her feet as well as is blind from diabetes also. She was brought to [facility] Emergency Room and a trauma workup undertaken including a CT scan of the head which reveals a traumatic subarachnoid hemorrhage involving the left insular and lateral Sylvian fissure along with a left temporal lobe and right frontal lobe contusion without mass effect or midline shift. No skull fractures noted. CT of the cervical spine does not reveal any fractures. Her main complaint is left thigh pain and right scapular and shoulder area pain. Initially she was nauseous but this has also improved. 05/04/17: Pt awakens to voice. Denies headache. No nausea or vomiting. No paresthesias in face or extremities. Follows commands well. Complains of soreness all over. 05/05/17: Pt awakens to voice. Pt was in dialysis earlier. Denies headaches. Complains of soreness all over but improving. No n/v. No paresthesias in face or extremities. (Michele Novak) Review of Systems General: Negative for: fever, chills, insomnia Respiratory: Negative for: shortness of breath, cough, sputum Cardiovascular: Negative for: chest pain Gastrointestinal: Negative for: nausea, vomitting, diarrhea, constipation ( Michele Novak) Exam Results Vital Signs Date Time Temp Pulse Resp B/P Pulse Ox O2 Delivery O2 Flow Rate FiO2 05/05/17 12:48 99 Nasal Cannula 2.00 05/05/17 12:47 97.9 78 24 110/56 Intake and Output 05/04/17 05/04/17 05/04/17 07:59 15:59 23:59 Intake Total 150 ml 660 ml 500 ml Output Total 0 ml 0 ml 0 ml Balance 150 ml 660 ml 500 ml (Michele Novak) Physical Examination Resp: CTA bilaterally Heart: NSR no murmurs Abd: Soft positive bs Skin: Left periorbital edema improving, left eye now able to open on her own. Muscle: Pt moves all 4 extremities with symmetric strength. Neuro: Pt awakens to voice. Follows commands. Speech clear and appropriate. Pupils equal. (Michele Novak) Lab, Micro, Other Results Last Impressions Lower Extremity CT 05/04/17 0000 Signed Impressions: Service Date/Time: Friday, May 05, 2017 04:45 - CONCLUSION: 1. There are primary degenerative changes at the hip joint. 2. No bony fracture or joint dislocation. Tank Lebron MD Head CT 05/03/17 0600 Signed Impressions: Service Date/Time: Wednesday, May 03, 2017 05:30 - CONCLUSION: Stable intracranial hemorrhage. Sony Jarvis MD Femur X-Ray 05/03/17 0000 Signed Impressions: Service Date/Time: Wednesday, May 03, 2017 00:19 - CONCLUSION: No acute disease. Sony Jarvis MD Chest CT 05/02/17 1900 Signed Impressions: Service Date/Time: Tuesday, May 02, 2017 19:44 - CONCLUSION: No change groundglass infiltrates of both lung bases and small pericardial effusion. No acute abnormality demonstrated. Aroldo Brown MD Pelvis X-Ray 05/02/171830 Signed Impressions: Service Date/Time: Tuesday, May 02, 2017 18:37 - CONCLUSION: Potentially a sagittally oriented fracture of the right side of the sacrum. Aroldo Brown MD Maxillofacial CT 05/02/171830 Signed Impressions: Service Date/Time: Tuesday, May 02, 2017 19:36 - CONCLUSION: Intact facial bones. Large left supraorbital soft tissue hematoma. Aroldo Brown MD Cervical Spine CT 05/02/171830 Signed Impressions: Service Date/Time: Tuesday, May 02, 2017 19:36 - CONCLUSION: Intact cervical spine. Aroldo Brown MD Abdomen/Pelvis CT 05/02/171830 Signed Impressions: Service Date/Time: Tuesday, May 02, 2017 19:44 - CONCLUSION: No visceral organ injury, fracture or other acute abnormality. Cholelithiasis, bilateral renal atrophy and cysts and diffusely sclerotic osseous structures. Aroldo Brown MD Laboratory Tests Test 05/05/17 03:59 White Blood Count 6.2 TH/MM3 Red Blood Count 2.86 MIL/MM3 Hemoglobin 9.8 GM/DL Hematocrit 29.8 % Mean Corpuscular Volume 104.0 FL Mean Corpuscular Hemoglobin 34.1 PG Mean Corpuscular Hemoglobin 32.8 % Concent Red Cell Distribution Width 18.0 % Platelet Count 181 TH/MM3 Mean Platelet Volume 9.6 FL Neutrophils (%) (Auto) 53.2 % Lymphocytes (%) (Auto) 30.6 % Monocytes (%) (Auto) 7.7 % Eosinophils (%) (Auto) 7.4 % Basophils (%) (Auto) 1.1 % Neutrophils # (Auto) 3.3 TH/MM3 Lymphocytes # (Auto) 1.9 TH/MM3 Monocytes # (Auto) 0.5 TH/MM3 Eosinophils # (Auto) 0.5 TH/MM3 Basophils # (Auto) 0.1 TH/MM3 CBC Comment DIFF FINAL Differential Comment Sodium Level 134 MEQ/L Potassium Level 5.5 MEQ/L Chloride Level 97 MEQ/L Carbon Dioxide Level 28.9 MEQ/L Anion Gap 8 MEQ/L Blood Urea Nitrogen 57 MG/DL Creatinine 10.20 MG/DL Estimat Glomerular Filtration 5 ML/MIN Rate Random Glucose 162 MG/DL Calcium Level 9.1 MG/DL Phosphorus Level 5.4 MG/DL Magnesium Level 2.2 MG/DL 05/04/17 05/04/17 05/05/17 14:59 22:59 06:59 Intake Total 660 ml 500 ml 300 ml Output Total 0 ml 0 ml 0 ml Balance 660 ml 500 ml 300 ml Intake Oral 660 ml 500 ml 300 ml IV Total 0 ml 0 ml 0 ml Output Urine Total 0 ml 0 ml 0 ml # Bowel Movements 0 0 0 (Michele Novak) Medical Decision Making Impression and Plan A: 1. Mild traumatic brain injury with a left lateral Sylvian fissure and insular traumatic subarachnoid hemorrhage along with small left temporal and right frontal lobe contusions without mass effect. 2. Insulin-dependent diabetes mellitus with associated complications including diabetic retinopathy/blindness and peripheral neuropathy. 3. End-stage renal disease on hemodialysis. PLAN continue to monitor Neuro exam. Continue with current care/ medical care Neurosurgically stable for 5N when medically stable. (Michele Novak) Attending Statement The exam, history, and the medical decision-making described in the above note were completed with the assistance of the mid-level provider. I reviewed and agree with the findings presented. I attest that I had a [id number] encounter with the patient on the same day, and personally performed and documented my assessment and findings in the medical record. (Bossman Moore MD) Michele Novak May 05, 2017 15:47 Bossman Moore MD May 05, 2017 16:56
[2017-05-05] MEDS: MAGNESIUM HYDROXIDE SUSP 30 ML CUP PO SCH (20:43)
[2017-05-05] MEDS: PRAVASTATIN SOD 80 MG TAB PO SCH (20:43)
[2017-05-06] VITALS (9 sets, daily range): BP systolic 104–190; BP diastolic 59–99; PULSE 76–93; RESP 12–26; TEMP 98–98.3; O2SAT 96–100
[2017-05-06] MEDS: PANTOPRAZOLE SODIUM 40 MG VIAL IVP SCH (01:01)
[2017-05-06] MEDS: CHLORHEXIDINE GLUCONATE 2 % 1 PACK (2 CLOTHS) TOP SCH (03:14)
[2017-05-06] MEDS: INSULIN ASPART SUPPLEMENTAL SCALE SQ SCH ×2 (06:30→11:00)
--- NOTE | 2017-05-06 09:16 | HHI.NSPN ---
(Michele Novak) History Chief Complaint: Mild TBI. (Michele Novak) Interval History This is a 56-year-old -[place] lady who apparently tripped and fell a flight of stairs and struck her head with positive loss of consciousness. The patient relates that she has diabetic neuropathy distally in her feet as well as is blind from diabetes also. She was brought to [facility] Emergency Room and a trauma workup undertaken including a CT scan of the head which reveals a traumatic subarachnoid hemorrhage involving the left insular and lateral Sylvian fissure along with a left temporal lobe and right frontal lobe contusion without mass effect or midline shift. No skull fractures noted. CT of the cervical spine does not reveal any fractures. Her main complaint is left thigh pain and right scapular and shoulder area pain. Initially she was nauseous but this has also improved. 05/04/17: Pt awakens to voice. Denies headache. No nausea or vomiting. No paresthesias in face or extremities. Follows commands well. Complains of soreness all over. 05/05/17: Pt awakens to voice. Pt was in dialysis earlier. Denies headaches. Complains of soreness all over but improving. No n/v. No paresthesias in face or extremities. 05/06/17: Pt awake and alert. sitting up in bed eating breakfast. Denies headache. No nausea or vomiting. No paresthesias in extremities. Soreness all over. (Michele Novak) Review of Systems General: Negative for: fever, chills Respiratory: Negative for: shortness of breath, cough, sputum Cardiovascular: Negative for: chest pain Gastrointestinal: Negative for: nausea, vomitting, diarrhea, constipation ( Michele Novak) Exam Results Vital Signs Date Time Temp Pulse Resp B/P Pulse Ox O2 Delivery O2 Flow Rate FiO2 05/06/17 08:50 97 Nasal Cannula 2.00 05/06/17 06:00 79 05/06/17 04:00 98.0 15 129/61 Intake and Output 05/05/17 05/05/17 05/06/17 08:00 16:00 00:00 Intake Total 300 ml 120 ml Output Total 0 ml 2000 ml 0 ml Balance 300 ml -2000 ml 120 ml (Michele Novak) Physical Examination Resp: CTA bilaterally Heart: NSR no murmurs Abd: Soft positive bs Skin: Left periorbital edema improving, left eye now able to open on her own. Muscle: Pt moves all 4 extremities with symmetric strength. Neuro: Pt awakens to voice. Follows commands. Speech clear and appropriate. Pupils equal. (Michele Novak) Lab, Micro, Other Results Last Impressions Lower Extremity CT 05/04/17 0000 Signed Impressions: Service Date/Time: Friday, May 05, 2017 04:45 - CONCLUSION: 1. There are primary degenerative changes at the hip joint. 2. No bony fracture or joint dislocation. Tank Lebron MD Head CT 05/03/17 0600 Signed Impressions: Service Date/Time: Wednesday, May 03, 2017 05:30 - CONCLUSION: Stable intracranial hemorrhage. Sony Jarvis MD Femur X-Ray 05/03/17 0000 Signed Impressions: Service Date/Time: Wednesday, May 03, 2017 00:19 - CONCLUSION: No acute disease. Sony Jarvis MD Chest CT 05/02/17 1900 Signed Impressions: Service Date/Time: Tuesday, May 02, 2017 19:44 - CONCLUSION: No change groundglass infiltrates of both lung bases and small pericardial effusion. No acute abnormality demonstrated. Aroldo Brown MD Pelvis X-Ray 05/02/171830 Signed Impressions: Service Date/Time: Tuesday, May 02, 2017 18:37 - CONCLUSION: Potentially a sagittally oriented fracture of the right side of the sacrum. Aroldo Brown MD Maxillofacial CT 05/02/171830 Signed Impressions: Service Date/Time: Tuesday, May 02, 2017 19:36 - CONCLUSION: Intact facial bones. Large left supraorbital soft tissue hematoma. Aroldo Brown MD Cervical Spine CT 05/02/171830 Signed Impressions: Service Date/Time: Tuesday, May 02, 2017 19:36 - CONCLUSION: Intact cervical spine. Aroldo Brown MD Abdomen/Pelvis CT 7/14/17 1831 Signed Impressions: Service Date/Time: Tuesday, May 02, 2017 19:44 - CONCLUSION: No visceral organ injury, fracture or other acute abnormality. Cholelithiasis, bilateral renal atrophy and cysts and diffusely sclerotic osseous structures. Aroldo Brown MD 05/05/17 05/05/17 05/06/17 15:00 23:00 07:00 Intake Total 120 ml 60 ml Output Total 2000 ml 0 ml 0 ml Balance -2000 ml 120 ml 60 ml Intake Oral 120 ml 60 ml IV Total 0 ml 0 ml Output Urine Total 0 ml 0 ml Hemodialysis 2000 ml # Bowel Movements 0 0 (Michele Novak) Medical Decision Making Impression and Plan A: 1. Mild traumatic brain injury with a left lateral Sylvian fissure and insular traumatic subarachnoid hemorrhage along with small left temporal and right frontal lobe contusions without mass effect. 2. Insulin-dependent diabetes mellitus with associated complications including diabetic retinopathy/blindness and peripheral neuropathy. 3. End-stage renal disease on hemodialysis. PLAN continue to monitor Neuro exam. Continue with current care/ medical care Neurosurgically stable for 5N when medically stable. (Michele Novak) Attending Statement The exam, history, and the medical decision-making described in the above note were completed with the assistance of the mid-level provider. I reviewed and agree with the findings presented. I attest that I had a [id number] encounter with the patient on the same day, and personally performed and documented my assessment and findings in the medical record. Awake and alert and follows commands with the splint speech. Right shoulder and left thigh pain is improving along with headaches. Transfer to floor and continue to increase activity status as tolerated. (Bossman Moore MD) Michele Novak May 06, 2017 09:16 Bossman Moore MD May 06, 2017 11:44
[2017-05-06] MEDS: DOCUSATE SODIUM 100 MG CAP PO SCH (09:35)
[2017-05-06] MEDS: LABETALOL HCL 100 MG TAB PO SCH (09:36)
[2017-05-06] MEDS: SEVELAMER CARBONATE 800 MG TAB PO SCH ×2 (09:36→12:53)
[2017-05-06] MEDS: METOCLOPRAMIDE HCL 10 MG TAB PO SCH ×2 (09:36→12:29)
[2017-05-06] MEDS: DULoxetine HCl DR 20 MG CAP PO SCH (09:36)
[2017-05-06] MEDS: CINACALCET HYDROCHLORIDE 30 MG TAB PO SCH (09:37)
[2017-05-06] MEDS: ERYTHROMYCIN ETHYLSUCCINATE 200 MG/5 ML SUSP 100 ML BOTTLE PO SCH (09:37)
--- NOTE | 2017-05-06 10:38 | HHI.PR ---
Subjective Remarks Follow-up leg pain, hypertension, diabetes. She states that her leg pain is improving. Denies chest pain, dyspnea. Objective Vitals Vital Signs Date Time Temp Pulse Resp B/P Pulse Ox O2 Delivery O2 Flow Rate FiO2 05/06/17 08:50 97 Nasal Cannula 2.00 05/06/17 06:00 79 05/06/17 04:00 98.0 88 15 129/61 99 05/06/17 04:00 88 05/06/17 02:00 93 05/06/17 00:00 98.2 89 12 104/64 96 05/06/17 00:00 89 05/05/17 22:00 84 05/05/17 20:05 94 Nasal Cannula 2.00 05/05/17 20:00 86 05/05/17 20:00 99.3 86 14 126/60 97 05/05/17 19:00 97 Nasal Cannula 2.00 05/05/17 17:20 89 05/05/17 16:00 98.2 87 18 108/55 98 05/05/17 12:48 99 Nasal Cannula 2.00 05/05/17 12:47 97.9 78 24 110/56 99 I/O 05/05/17 05/05/17 05/05/17 05/06/17 05/06/17 05/06/17 07:00 15:00 23:00 07:00 15:00 23:00 Intake Total 300 ml 120 ml 60 ml Output Total 0 ml 2000 ml 0 ml 0 ml Balance 300 ml -2000 ml 120 ml 60 ml Intake Oral 300 ml 120 ml 60 ml IV Total 0 ml 0 ml 0 ml Output Urine Total 0 ml 0 ml 0 ml Hemodialysis 2000 ml # Bowel Movements 0 0 0 Result Diagram: 05/05/17 0359 05/05/17 0359 Imaging Last Impressions Lower Extremity CT 05/04/17 0000 Signed Impressions: Service Date/Time: Friday, May 05, 2017 04:45 - CONCLUSION: 1. There are primary degenerative changes at the hip joint. 2. No bony fracture or joint dislocation. Tank Lebron MD Head CT 05/03/17 0600 Signed Impressions: Service Date/Time: Wednesday, May 03, 2017 05:30 - CONCLUSION: Stable intracranial hemorrhage. Sony Jarvis MD Femur X-Ray 05/03/17 0000 Signed Impressions: Service Date/Time: Wednesday, May 03, 2017 00:19 - CONCLUSION: No acute disease. Sony Jarvis MD Chest CT 05/02/171899 Signed Impressions: Service Date/Time: Tuesday, May 02, 2017 19:44 - CONCLUSION: No change groundglass infiltrates of both lung bases and small pericardial effusion. No acute abnormality demonstrated. Aroldo Brown MD Pelvis X-Ray 05/02/171830 Signed Impressions: Service Date/Time: Tuesday, May 02, 2017 18:37 - CONCLUSION: Potentially a sagittally oriented fracture of the right side of the sacrum. Aroldo Brown MD Maxillofacial CT 05/02/171830 Signed Impressions: Service Date/Time: Tuesday, May 02, 2017 19:36 - CONCLUSION: Intact facial bones. Large left supraorbital soft tissue hematoma. Aroldo Brown MD Cervical Spine CT 05/02/171830 Signed Impressions: Service Date/Time: Tuesday, May 02, 2017 19:36 - CONCLUSION: Intact cervical spine. Aroldo Brown MD Abdomen/Pelvis CT 05/02/171830 Signed Impressions: Service Date/Time: Tuesday, May 02, 2017 19:44 - CONCLUSION: No visceral organ injury, fracture or other acute abnormality. Cholelithiasis, bilateral renal atrophy and cysts and diffusely sclerotic osseous structures. Aroldo Brown MD Objective Remarks General: No acute distress. Sitting up in a chair. HEENT: Hematoma overlying left forehead with left periorbital swelling. Heart: Regular rate and rhythm. No murmur. Lungs: Clear to auscultation bilaterally. No wheezes, rales, or rhonchi. Breathing is nonlabored. Abdomen: Soft, nontender, nondistended. Extremities: No lower extremity edema. Tenderness to palpation of the left upper leg. Psych: Alert and oriented. Procedures None Urinary Catheter: No Vascular Central Line Catheter: No A/P Problem List: (1) Head injury ICD Code: S09.90XA Status: Acute (2) Intraparenchymal hemorrhage of brain ICD Code: I61.9 Status: Acute (3) Fall down stairs ICD Code: W10.8XXA Status: Acute (4) DM type 2 with diabetic peripheral neuropathy ICD Code: E11.42 Status: Chronic (5) Hypertension ICD Code: I10 Status: Chronic (6) ESRD (end stage renal disease) ICD Code: N18.6 Status: Chronic (7) Left leg pain ICD Code: M79.605 Status: Acute Assessment and Plan 1. Closed head injury: Management per trauma service, neurosurgery. 2. Hypertension: Patient's blood pressure has been fluctuating. She has been hypotensive at times. She became orthostatic when physical therapy got her out of bed. Monitor blood pressure closely. Continue labetalol at decreased dose. Vasotec, clonidine as needed for significant blood pressure elevations. 3. Diabetes mellitus, type II: Monitor Accu-Cheks and cover with sliding scale insulin. Levemir on hold. 4. End-stage renal disease: Hemodialysis Friday/Friday/Friday per nephrology. 5. Hyperlipidemia: Continue statin. 6. DVT prophylaxis: SCDs. Hold chemical prophylaxis secondary to head injury. 7. Left leg pain: Improving. X-ray showed no fracture on presentation to the ER. CT of the leg shows no acute injury. Discharge Planning Per trauma service, neurosurgery. PT recommending SNF/rehab. Problem Qualifiers (1) Head injury: Qualified Code: S09.90XA - Head injury, initial encounter (2) Fall down stairs: Qualified Code: W10.8XXA - Fall down stairs, initial encounter Rajendra Holt MD May 06, 2017 10:38
--- NOTE | 2017-05-06 10:55 | HHI.NPPN ---
Subjective General Problems: Anemia, Hypertension Renal Failure: Chronic, End Stage Renal Disease Interval History Sitting up in chair. She is doing well, states she is to be discharged today. Had dialysis yesterday. (Ladonna Mercedes) Review of Systems Eyes Eyes Remarks legally blind at baseline (Ladonna Mercedes) Musculoskeletal MS: Pain/Stiffness MS Remarks back pain s/p fall (Ladonna Mercedes) Neuro Neuro: Dizziness (Ladonna Mercedes) Objective Data Data 05/05/17 05/06/17 19:00 07:00 Intake Total 180 ml Output Total 2000 ml 0 ml Balance -2000 ml 180 ml Intake Oral 180 ml IV Total 0 ml Output Urine Total 0 ml Hemodialysis 2000 ml # Bowel Movements 0 Vital Signs Date Time Temp Pulse Resp B/P Pulse Ox O2 Delivery O2 Flow Rate FiO2 05/06/17 08:50 97 Nasal Cannula 2.00 05/06/17 06:00 79 05/06/17 04:00 98.0 88 15 129/61 99 05/06/17 04:00 88 05/06/17 02:00 93 05/06/17 00:00 98.2 89 12 104/64 96 05/06/17 00:00 89 05/05/17 22:00 84 05/05/17 20:05 94 Nasal Cannula 2.00 05/05/17 20:00 86 05/05/17 20:00 99.3 86 14 126/60 97 05/05/17 19:00 97 Nasal Cannula 2.00 05/05/17 17:20 89 05/05/17 16:00 98.2 87 18 108/55 98 05/05/17 12:48 99 Nasal Cannula 2.00 05/05/17 12:47 97.9 78 24 110/56 99 (Ladonna Mercedes) -: 05/05/17 0359 05/05/17 0359 Imaging Last 72 hours Impressions Lower Extremity CT 05/04/17 0000 Signed Impressions: Service Date/Time: Friday, May 05, 2017 04:45 - CONCLUSION: 1. There are primary degenerative changes at the hip joint. 2. No bony fracture or joint dislocation. Tank Lebron MD (Ladonna Mercedes) Physical Exam General Appearance: Well Developed, Well Nourished, Comfortable (Ladonna Mercedes) Throat Throat Exam: Oral Mucosa [employer] & Moist (Ladonna Mercedes) Neck Neck Exam: Neck Supple (Ladonna Mercedes) Pulmonary Resp Exam: Clear Bilaterally, Breath Sounds Equal, No Distress (Ladonna Mercedes) Cardiology CV Exam: Regular, Normal Sinus Rhythm, Good Perfusion (Ladonna Mercedes) Gastrointestinal/Abdomen GI Exam: Soft, Non-Tender, Bowel Sounds Present (Ladonna Mercedes) Musculoskeletal MS Exam: Joints Intact, Good Strength (Ladonna Mercedes) Integumentary Skin Exam: Warm, Dry Skin Remarks hematoma above left eye (Ladonna Mercedes) Extremeties Extremities Exam: No Edema, Pedal Pulses Palpable (Ladonna Mercedes) Neurologic Neuro Exam: Alert, Awake, Oriented, Speech Clear, Moving All Extremities ( Ladonna Mercedes) Psychiatric Psych Exam: Appropriate Responses (Ladonna Mercedes) Assessment/Plan Discussed Condition With: Patient Assessment Summary: Anemia of CKD Electrolyte Assessment: Hyperkalemia Problem List: (1) ESRD (end stage renal disease) Plan: She had 2L fluid removal yesterday continue MWF hemodialysis support she has AVF on left for dialysis, functions well avoid IVF administration, gadolinium is contraindicated in patients with ESRD if discharged she can resume outpatient HD arrangements (2) Head injury Plan: s/p fall imaging confirms Left temporal lobe subarachnoid admitted and right parenchymal hemorrhage neurosurgery is following, non surgical management monitor neuro status (3) Hypertension Plan: Blood pressure is acceptable, continue to Monitor (4) DM type 2 with diabetic peripheral neuropathy Plan: Continue with insulin regimen, goal of glucose is 140-180 mg/dL. (5) Anemia Plan: on Epogen with dialysis (6) Metabolic bone disease Plan: continue renvela with meals (Ladonna Mercedes) Plan patient was seen and examined. Having physical therapy. Likely needs rehab. ( Sai Suggs MD) Problem Qualifiers (1) Head injury: Qualified Code: S09.90XA - Head injury, initial encounter Ladonna Mercedes May 06, 2017 10:55 Sai Suggs MD May 07, 2017 08:48
--- NOTE | 2017-05-06 11:43 | HHI.NPPN ---
Subjective General Problems: Anemia, Hypertension Renal Failure: Chronic, End Stage Renal Disease Review of Systems Eyes Eyes Remarks legally blind at baseline Musculoskeletal MS: Pain/Stiffness MS Remarks back pain s/p fall Neuro Neuro: Dizziness Objective Data Data 05/05/17 05/06/17 19:00 07:00 Intake Total 180 ml Output Total 2000 ml 0 ml Balance -2000 ml 180 ml Intake Oral 180 ml IV Total 0 ml Output Urine Total 0 ml Hemodialysis 2000 ml # Bowel Movements 0 Vital Signs Date Time Temp Pulse Resp B/P Pulse Ox O2 Delivery O2 Flow Rate FiO2 05/06/17 08:50 97 Nasal Cannula 2.00 05/06/17 06:00 79 05/06/17 04:00 98.0 88 15 129/61 99 05/06/17 04:00 88 05/06/17 02:00 93 05/06/17 00:00 98.2 89 12 104/64 96 05/06/17 00:00 89 05/05/17 22:00 84 05/05/17 20:05 94 Nasal Cannula 2.00 05/05/17 20:00 86 05/05/17 20:00 99.3 86 14 126/60 97 05/05/17 19:00 97 Nasal Cannula 2.00 05/05/17 17:20 89 05/05/17 16:00 98.2 87 18 108/55 98 05/05/17 12:48 99 Nasal Cannula 2.00 05/05/17 12:47 97.9 78 24 110/56 99 -: 05/05/17 0359 05/05/17 0359 Physical Exam General Appearance: Well Developed, Well Nourished, Comfortable Throat Throat Exam: Oral Mucosa [place] & Moist Neck Neck Exam: Neck Supple Pulmonary Resp Exam: Clear Bilaterally, Breath Sounds Equal, No Distress Cardiology CV Exam: Regular, Normal Sinus Rhythm, Good Perfusion Gastrointestinal/Abdomen GI Exam: Soft, Non-Tender, Bowel Sounds Present Musculoskeletal MS Exam: Joints Intact, Good Strength Integumentary Skin Exam: Warm, Dry Extremeties Extremities Exam: No Edema, Pedal Pulses Palpable Neurologic Neuro Exam: Alert, Awake, Oriented, Speech Clear, Moving All Extremities Psychiatric Psych Exam: Appropriate Responses Assessment/Plan Discussed Condition With: Patient Assessment Summary: Anemia of CKD Electrolyte Assessment: Hyperkalemia Problem List: (1) ESRD (end stage renal disease) Plan: She had 2L fluid removal yesterday continue MWF hemodialysis support she has AVF on left for dialysis, functions well avoid IVF administration, gadolinium is contraindicated in patients with ESRD if discharged she can resume outpatient HD arrangements (2) Head injury Plan: s/p fall imaging confirms Left temporal lobe subarachnoid admitted and right parenchymal hemorrhage neurosurgery is following, non surgical management monitor neuro status (3) Hypertension Plan: Blood pressure is acceptable, continue to Monitor (4) DM type 2 with diabetic peripheral neuropathy Plan: Continue with insulin regimen, goal of glucose is 140-180 mg/dL. (5) Anemia Plan: on Epogen with dialysis (6) Metabolic bone disease Plan: continue renvela with meals Plan patient was seen and examined. Her condition has improved. Likely needs to go to rehab for some time. Dialysis tomorrow. Continue supportive care. Problem Qualifiers (1) Head injury: Qualified Code: S09.90XA - Head injury, initial encounter Sai Suggs MD May 06, 2017 11:43
[2017-05-06 12:14] LABS: AUTOMATED NEUTROPHIL # 3.5 TH/MM3 (1.8-7.7); BASOPHIL % 0.8 % (0.0-2.0); EOSINOPHIL # 0.3 TH/MM3 (0-0.4); EOSINOPHIL % 4.7 % (0.0-4.0); HEMATOCRIT 32.4 % (35.0-46.0); HEMO FLAGS DIFF FINAL; LYMPH % 26.6 % (9.0-44.0); LYMPHOCYTE # 1.6 TH/MM3 (1.0-4.8); MEAN CELL VOLUME 101.9 FL (80.0-100.0); MEAN CORPUSCULAR HEMOGLOBIN 34.3 PG (27.0-34.0); MEAN CORPUSCULAR HGB CONC 33.7 % (32.0-36.0); MONO % 9.6 % (0.0-8.0); NEUT % 58.3 % (16.0-70.0); PLATELET COUNT 191 TH/MM3 (150-450); RED BLOOD COUNT 3.18 MIL/MM3 (4.00-5.30); RED CELL DISTRIBUTION WIDTH 17.3 % (11.6-17.2); WHITE BLOOD COUNT 6.1 TH/MM3 (4.0-11.0)
[2017-05-06] MEDS: MORPHINE SULFATE 8 MG/ML INJ IV PUSH PRN (12:35)
[2017-05-06 12:43] LABS: BICARBONATE 29.9 MEQ/L (21.0-32.0); POTASSIUM 5.2 MEQ/L (3.5-5.1)
[2017-05-06] MEDS ORDERED: DOCU1CAP39 PO (15:00)
[2017-05-06] MEDS ORDERED: LACTULOSE SYRUP 20 GM/30 ML CUP PO ONE (15:00)
--- NOTE | 2017-05-06 15:11 | HHI.DS ---
Discharge Summary Admission Date May 02, 2017 at 20:44 Discharge Date: May 06, 2017 Admitting Diagnosis SAH, IPH (1) Subarachnoid hemorrhage (2) Fall down stairs (3) Intraparenchymal hemorrhage of brain Brief History S/P Trauma: Fall CBC/BMP: 05/06/17 1141 05/06/17 1141 Significant Findings Laboratory Tests Test 05/04/17 05/05/17 05/06/17 10:31 03:59 11:41 Red Blood Count 3.20 MIL/MM3 2.86 MIL/MM3 3.18 MIL/MM3 (4.00-5.30) (4.00-5.30) (4.00-5.30) Hemoglobin 10.7 GM/DL 9.8 GM/DL 10.9 GM/DL (11.6-15.3) (11.6-15.3) (11.6-15.3) Hematocrit 32.9 % 29.8 % 32.4 % (35.0-46.0) (35.0-46.0) (35.0-46.0) Mean Corpuscular Volume 102.7 FL 104.0 FL 101.9 FL (80.0-100.0) (80.0-100.0) (80.0-100.0) Red Cell Distribution Width 17.6 % 18.0 % 17.3 % (11.6-17.2) (11.6-17.2) (11.6-17.2) Eosinophils (%) (Auto) 5.0 % (0.0-4.0) 7.4 % (0.0-4.0) 4.7 % (0.0-4.0) Blood Urea Nitrogen 47 MG/DL (7-18) 57 MG/DL (7-18) 46 MG/DL (7-18) Creatinine 9.09 MG/DL 10.20 MG/DL 8.32 MG/DL (0.50-1.00) (0.50-1.00) (0.50-1.00) Estimat Glomerular Filtration 5 ML/MIN (>89) 5 ML/MIN (>89) 6 ML/MIN (>89) Rate Alkaline Phosphatase 196 U/L (45-117) Mean Corpuscular Hemoglobin 34.1 PG 34.3 PG (27.0-34.0) (27.0-34.0) Eosinophils # (Auto) 0.5 TH/MM3 (0-0.4) Sodium Level 134 MEQ/L 134 MEQ/L (136-145) (136-145) Potassium Level 5.5 MEQ/L 5.2 MEQ/L (3.5-5.1) (3.5-5.1) Chloride Level 97 MEQ/L 94 MEQ/L (98-107) (98-107) Random Glucose 162 MG/DL 117 MG/DL (74-106) (74-106) Phosphorus Level 5.4 MG/DL (2.5-4.9) Monocytes (%) (Auto) 9.6 % (0.0-8.0) Imaging Last Impressions Lower Extremity CT 05/04/17 0000 Signed Impressions: Service Date/Time: Friday, May 05, 2017 04:45 - CONCLUSION: 1. There are primary degenerative changes at the hip joint. 2. No bony fracture or joint dislocation. Tank Lebron MD Head CT 05/03/17 0600 Signed Impressions: Service Date/Time: Wednesday, May 03, 2017 05:30 - CONCLUSION: Stable intracranial hemorrhage. Sony Jarvis MD Femur X-Ray 05/03/17 0000 Signed Impressions: Service Date/Time: Wednesday, May 03, 2017 00:19 - CONCLUSION: No acute disease. Sony Jarvis MD Chest CT 05/02/17 1900 Signed Impressions: Service Date/Time: Tuesday, May 02, 2017 19:44 - CONCLUSION: No change groundglass infiltrates of both lung bases and small pericardial effusion. No acute abnormality demonstrated. Aroldo Brown MD Pelvis X-Ray 05/02/171830 Signed Impressions: Service Date/Time: Tuesday, May 02, 2017 18:37 - CONCLUSION: Potentially a sagittally oriented fracture of the right side of the sacrum. Aroldo Brown MD Maxillofacial CT 05/02/171830 Signed Impressions: Service Date/Time: Tuesday, May 02, 2017 19:36 - CONCLUSION: Intact facial bones. Large left supraorbital soft tissue hematoma. Aroldo Brown MD Cervical Spine CT 05/02/171830 Signed Impressions: Service Date/Time: Tuesday, May 02, 2017 19:36 - CONCLUSION: Intact cervical spine. Aroldo Brown MD Abdomen/Pelvis CT 05/02/17 1831 Signed Impressions: Service Date/Time: Tuesday, May 02, 2017 19:44 - CONCLUSION: No visceral organ injury, fracture or other acute abnormality. Cholelithiasis, bilateral renal atrophy and cysts and diffusely sclerotic osseous structures. Aroldo Brown MD PE at Discharge GENERAL: 56 year old well-nourished, well developed female OOB in chair. SKIN: Warm and dry. HEAD: Normocephalic. LEFT forehead hematoma noted. EYES: PERRL. ENT: No nasal bleeding or discharge. Mucous membranes pink and moist. NECK: Trachea midline. No JVD. CARDIOVASCULAR: Regular rate and rhythm. RESPIRATORY: No accessory muscle use. Lungs clear to auscultation. Breath sounds equal bilaterally. GASTROINTESTINAL: Abdomen soft, non-tender, nondistended. + BS. MUSCULOSKELETAL: Extremities without cyanosis, or edema. LUE AV shunt in place, + bruit, + thrill. NEUROLOGICAL: Awake and alert. Normal speech. Hospital Course [place]: Slipped and fell down a flight of stairs. + LOC. INJURIES: LEFT forehead hematoma LEFT and RIGHT SAH and IPH PMHx: ESRD, diabetic neuropathy, HTN, DM. Diet: Diabetic, tolerating Pulm: IS Pain: Tylenol # 3. Morphine. Activity: BR. PT and Ot ordered GI: Protonix IV. Reglan. Bowel: Colace. MOM. LBM: 0 Lactulose 60mL x1 DVT: SCD's LEFT forehead hematoma Supportive care Ice pack PRN Pain control Bilateral SAH and IPH Neurosurgery consulted Nonsurgical management Neuro checks Repeat CT Brain- stable Cleared for DC. F/U with Dr Moore in 2 weeks ESRD Cancer Registrar consulted Dialysis M-W-F Plan of care discussed with patient at bedside. Case management consulted to assist with discharge planning. Patient is clear from trauma surgery standpoint to safely discharge to [facility] [place] inpatient rehabilitation. Pt Condition on Discharge: Stable Discharge Disposition: Rehab Inpatient Discharge Instructions DIET: Follow Instructions for: Diabetic Diet, Dialysis Diet Activities you can perform: Weight Bearing as Adrián Rod Shaikh May 06, 2017 15:11
[2017-05-06] MEDS ORDERED: CLOP75TA PO (18:08)
== END 2017-05-06 17:34 | DRG 82 ==
LOC: NEPE 17:44 → NEDA 20:44 → N03B 05-03 00:39
PROVIDERS: ADMIT Surgery; ATTEND Surgery
PROC: 5A1D00Z (ICD-10-PCS; principal; 2017-05-05)
DX: S06.6X9A Traumatic subarachnoid hemorrhage with loss of consciousness of unspecified duration, initial encounter (principal); N18.6 End stage renal disease; I12.0 Hypertensive chronic kidney disease with stage 5 chronic kidney disease or end stage renal disease; E88.89 Other specified metabolic disorders; E11.22 Type 2 diabetes mellitus with diabetic chronic kidney disease; S06.309A Unspecified focal traumatic brain injury with loss of consciousness of unspecified duration, initial encounter; E11.42 Type 2 diabetes mellitus with diabetic polyneuropathy; W01.198A Fall on same level from slipping, tripping and stumbling with subsequent striking against other object, initial encounter; Y92.9 Unspecified place or not applicable; W10.9XXA Fall (on) (from) unspecified stairs and steps, initial encounter; Z99.2 Dependence on renal dialysis; Z79.4 Long term (current) use of insulin; E78.00 Pure hypercholesterolemia, unspecified; Z95.1 Presence of aortocoronary bypass graft; M19.90 Unspecified osteoarthritis, unspecified site; Z79.02 Long term (current) use of antithrombotics/antiplatelets; Z79.82 Long term (current) use of aspirin; E11.319 Type 2 diabetes mellitus with unspecified diabetic retinopathy without macular edema; H54.8 Legal blindness, as defined in USA; E78.5 Hyperlipidemia, unspecified; F41.9 Anxiety disorder, unspecified; F32.9 Major depressive disorder, single episode, unspecified; E21.3 Hyperparathyroidism, unspecified; D63.1 Anemia in chronic kidney disease; E87.5 Hyperkalemia; M79.652 Pain in left thigh
CPT/HCPCS: 70450; 70486; 71250; 72125; 72170; 73552; 73700; 74176; 80048; 80053; 80307; 82948; 83735; 84100; 85025; 85610; 85730; 86850; 86900; 86901; 87641; 90935; 93005; 96374; 96375; C9113; J1170; J1815; J2270; J2405; Q4081

== ENCOUNTER → 2017-06-03 | Outpatient (CLI) | payer MEDICARE, MEDICAID ==
[~2017-06-03] MED LIST changes: +ACET1TAB86 PO; +AMLO5 PO; -ASPI81CH37 CHEW; +BUTATAB6 PO; -CLOB0.055 TOPICAL; +ESOM1CAP16 PO; +LABE100T2 PO; -LABE200T2 PO; -PLAV75TA29 PO; +SCOP1PAT2 T-DERMAL; +SENN1TAB PO; +SUCR1S PO; -TYLETAB34 PO; -[UNRECOGNIZED DRUG - CODE] PO
[2017-06-03 12:02] LABS: ANION GAP 7 MEQ/L (5-15); AST (GOT) 10 U/L (15-37); BICARBONATE 27.7 MEQ/L (21.0-32.0); BLOOD UREA NITROGEN 38 MG/DL (7-18); CHLORIDE 99 MEQ/L (98-107); GLOMERULAR FILTRATION RATE 7 ML/MIN (>89); GLUCOSE,FASTING 110 MG/DL (74-99); POTASSIUM 4.5 MEQ/L (3.5-5.1); SODIUM (NA) 134 MEQ/L (136-145)
[2017-06-03 12:05] LABS: ALKALINE PHOSPHATASE 168 U/L (45-117); ALT (GPT) 15 U/L (10-53); TOTAL BILIRUBIN ADULT 0.5 MG/DL (0.2-1.0)
[2017-06-03 17:56] LABS: HEMOGLOBIN A1b 1.7 %; HEMOGLOBIN Ao 85.8 %; HEMOGLOBIN LA1C 2.1 %; HEMOGLOBIN P3 5.1 %
== END ==
LOC: ELAB 09:48
PROVIDERS: ATTEND Family Medicine
DX: E11.65 Type 2 diabetes mellitus with hyperglycemia (principal)
CPT/HCPCS: 36415; 80053; 83036

== ENCOUNTER 2017-06-18 09:15 | Observation (INO) | payer MEDICARE, MEDICAID ==
[2017-06-18] VITALS (9 sets, daily range): BP systolic 143–189; BP diastolic 74–91; PULSE 75–96; RESP 18–24; TEMP 98.3–99; O2SAT 96–100
[~2017-06-18 09:15] MED LIST changes: -ESOM1CAP16 PO; -SUCR1S PO
[2017-06-18 09:57] LABS: AUTOMATED NEUTROPHIL # 5.1 TH/MM3 (1.8-7.7); BASOPHIL % 0.6 % (0.0-2.0); EOSINOPHIL # 0.2 TH/MM3 (0-0.4); EOSINOPHIL % 3.2 % (0.0-4.0); HEMATOCRIT 35.6 % (35.0-46.0); HEMO FLAGS DIFF FINAL; LYMPH % 21.4 % (9.0-44.0); LYMPHOCYTE # 1.6 TH/MM3 (1.0-4.8); MEAN CELL VOLUME 101.1 FL (80.0-100.0); MEAN CORPUSCULAR HEMOGLOBIN 33.5 PG (27.0-34.0); MEAN CORPUSCULAR HGB CONC 33.1 % (32.0-36.0); MONO % 7.4 % (0.0-8.0); NEUT % 67.4 % (16.0-70.0); PLATELET COUNT 199 TH/MM3 (150-450); RED BLOOD COUNT 3.52 MIL/MM3 (4.00-5.30); RED CELL DISTRIBUTION WIDTH 17.8 % (11.6-17.2); WHITE BLOOD COUNT 7.6 TH/MM3 (4.0-11.0)
--- NOTE | 2017-06-18 10:04 | RADRPT ---
EXAM DATE/TIME: 06/18/2017 09:49 [facility] COMPARISON: CHEST SINGLE AP, May 15, 2017, 15:46. INDICATIONS : Short of breath and fever. MEDICAL HISTORY : Cardiovascular disease. Hypertension. Renal failure, chronic. SURGICAL HISTORY : Appendectomy. section. ENCOUNTER: Initial ACUITY: 1 day PAIN SCORE: 0/10 LOCATION: Bilateral chest FINDINGS: A single view of the chest demonstrates the lungs to be symmetrically aerated without evidence of mas s, infiltrate or effusion. The cardiomediastinal contours are unremarkable. Osseous structures are intact. CONCLUSION: No acute disease. Aroldo Abdullahi MD on June 18, 2017 at 10:02 Board Certified Radiologist. This report was verified electronically.
[2017-06-18] MEDS ORDERED: NITROGLYCERIN 2% OINT 1 GM PACKET TOPICAL ONE (10:15)
[2017-06-18] MEDS ORDERED: ASPIRIN 325 MG TAB PO ONE (10:15)
--- NOTE | 2017-06-18 10:16 | PD ---
HPI Chief Complaint: Chest Pain Time Seen by Provider: 10:04 Travel History International Travel<30 days: No Contact w/Intl Traveler<30days: No Traveled to known affect area: No History of Present Illness HPI 56-year-old female with history of hypertension, diabetes, end-stage renal disease on dialysis, presents to the ER today because she started getting a 7 out of 10 substernal chest pains while she was getting dialysis. She denies any shortness of breath, vomiting, fevers, or any other symptoms. She states she has had previous chest pain. Modifying Factors: None Associated Signs & Symptoms: Chest pain while on dialysis Risk Factors: End-stage renal disease on dialysis PFSH Past Medical History Anemia: Yes Arthritis: Yes Asthma: No Autoimmune Disease: No Blood Disorders: Yes (anemia of chronic disease) Anxiety: Yes Depression: Yes Heart Rhythm Problems: No Cancer: No Cardiac Catheterization: No Cardiovascular Problems: Yes High Cholesterol: Yes Chemotherapy: No Chest Pain: Yes Congestive Heart Failure: No COPD: No Cerebrovascular Accident: No Diabetes: Yes Patient Takes Glucophage: No Dialysis: Yes ([facility] FRI/FRI/FRI LAST WENT 04/25/17) Diminished Hearing: No Endocrine: No Gastrointestinal Disorders: No GERD: No Glaucoma: No Genitourinary: Yes Headaches: Yes Hepatitis: No Hiatal Hernia: No Heparin Induced Thrombocytopen: No Hypertension: Yes Immune Disorder: No Implanted Vascular Access Dvce: Yes (L UPPER ARM AVF) Musculoskeletal: No Neurologic: No Psychiatric: Yes Reproductive: No Respiratory: No Migraines: No Radiation Therapy: No Renal Failure: Yes Seizures: No Sickle Cell Disease: No Sleep Apnea: No Thyroid Disease: No Ulcer: No PNEUMOCCOCAL Vaccine (Year): 2 Menopausal: Yes : 2 Para: 1 Miscarriage: 1 : 0 Past Surgical History Abdominal Surgery: Yes (appendectomy) AICD: No Appendectomy: Yes Arteriovenous Shunt: No Body Medical Devices: left AV fistula Cardiac Surgery: No Section: Yes Coronary Artery Bypass Graft: Yes Ear Surgery: No Endocrine Surgery: No Eye Surgery: Yes (bilateral cataracts removal) Genitourinary Surgery: No Gynecologic Surgery: No Insulin Pump: No Joint Replacement: No Oral Surgery: No Pacemaker: No Thoracic Surgery: No Other Surgery: Yes (LEFT ARM SHUNT PLACEMENT) Social History Alcohol Use: No Tobacco Use: No Substance Use: No Allergies-Medications (Allergen,Severity, Reaction): Coded Allergies: acetaminophen (Unverified Allergy, Severe, VOMITING, 06/18/17) linezolid (Unverified Allergy, Severe, VOMITING, 06/18/17) oxycodone (Unverified Allergy, Severe, VOMITING, 06/18/17) piperacillin (Unverified Allergy, Severe, VOMITING, 06/18/17) simvastatin (Unverified Allergy, Severe, VOMITING, 06/18/17) tazobactam (Unverified Allergy, Severe, VOMITING, 06/18/17) Reported Meds & Prescriptions Reported Meds & Active Scripts Active Senna Plus 8.6-50 mg (Sennosides-Docusate Sodium) 1 Tab Tab 2 Tab PO BID Transderm-Scop (Scopolamine) 1 Mg/3 Days Dis 1 Patch T-DERMAL Q3D Labetalol (Labetalol HCl) 100 Mg Tab 50 Mg PO BID 30 Days check BP prior to taking hold for SBP < 130 and recheck after an hour Levemir Inj (Insulin Detemir) 1,000 unit/ 10 ML Vial 10 Units SQ HS 30 Days check blood sugar prior to taking Zlvkwcdzdd-Dikyneitgdpii-Zvlibgba 50-325-40 Mg Tab 1 Tab PO Q6H PRN Norvasc (Amlodipine Besylate) 5 Mg Tab 5 Mg PO DAILY 30 Days Eq Acetaminophen (Acetaminophen) 325 Mg Tab 650 Mg PO Q4H PRN Nexium (Esomeprazole DR) 40 Mg Capdr 40 Mg PO DAILY [address] (Duloxetine HCl) 20 Mg Capdr 20 Mg PO DAILY Combigan Opth Drops (Brimonidine-Timolol Opth Drops) 0.2-0.5% Soln 1 Drop EACH EYE Q12HR 14 Days Sensipar (Cinacalcet) 60 Mg Tab 60 Mg PO DAILY Pravachol (Pravastatin) 80 Mg Tab 80 Mg PO HS Metoclopramide (Metoclopramide HCl) 5 Mg Tab 5 Mg PO TIDAC 14 Days Review of Systems Except as stated in HPI: all other systems reviewed are Neg Physical Exam Narrative GENERAL: Well-developed middle age -[place] female patient currently in mild distress. Awake and oriented 3. SKIN: Focused skin assessment warm/dry. HEAD: Atraumatic. Normocephalic. EYES: Pupils equal and round. No scleral icterus. No injection or drainage. ENT: No nasal bleeding or discharge. Mucous membranes pink and moist. NECK: Trachea midline. No JVD. CARDIOVASCULAR: Regular rate and rhythm. No murmur appreciated. Pulses are present and equal bilaterally. RESPIRATORY: No accessory muscle use. Clear to auscultation. Breath sounds equal bilaterally. GASTROINTESTINAL: Abdomen soft, mild diffuse abdominal tenderness without guarding or rebound, nondistended. Hepatic and splenic margins not palpable. MUSCULOSKELETAL: No obvious deformities. No clubbing. No cyanosis. No edema. NEUROLOGICAL: Awake and alert. No obvious cranial nerve deficits. Motor grossly within normal limits. Normal speech. PSYCHIATRIC: Appropriate mood and affect; insight and judgment normal. Data Data Last Documented VS Vital Signs Date Time Temp Pulse Resp B/P (MAP) Pulse Ox O2 Delivery O2 Flow Rate FiO2 06/18/17 09:49 81 20 149/74 (99) 06/18/17 09:43 Nasal Cannula 2.00 06/18/17 09:43 99 06/18/17 09:25 98.6 Orders Orders Electrocardiogram (06/18/17 09:32) Complete Blood Count With Diff (06/18/17 09:32) Basic Metabolic Panel (Bmp) (06/18/17 09:32) Ckmb (Isoenzyme) Profile (06/18/17 09:32) Troponin I (06/18/17 09:32) Chest, Single Ap (06/18/17 09:32) Iv Access Insert/Monitor (06/18/17 09:32) Ecg Monitoring (06/18/17 09:32) Oxygen Administration (06/18/17 09:32) Oximetry (06/18/17 09:32) Comprehensive Metabolic Panel (06/18/17 09:55) B-Type Natriuretic Peptide (06/18/17 10:04) Aspirin (Aspirin) (06/18/17 10:15) Nitroglycerin 2% Oint (Nitroglycerin 2% (06/18/17 10:15) CKMB (06/18/17 09:00) CKMB% (06/18/17 09:00) Labs Laboratory Tests Test 06/18/17 09:00 06/18/17 10:05 White Blood Count 7.6 TH/MM3 Red Blood Count 3.52 MIL/MM3 Hemoglobin 11.8 GM/DL Hematocrit 35.6 % Mean Corpuscular Volume 101.1 FL Mean Corpuscular Hemoglobin 33.5 PG Mean Corpuscular Hemoglobin Concent 33.1 % Red Cell Distribution Width 17.8 % Platelet Count 199 TH/MM3 Mean Platelet Volume 10.1 FL Neutrophils (%) (Auto) 67.4 % Lymphocytes (%) (Auto) 21.4 % Monocytes (%) (Auto) 7.4 % Eosinophils (%) (Auto) 3.2 % Basophils (%) (Auto) 0.6 % Neutrophils # (Auto) 5.1 TH/MM3 Lymphocytes # (Auto) 1.6 TH/MM3 Monocytes # (Auto) 0.6 TH/MM3 Eosinophils # (Auto) 0.2 TH/MM3 Basophils # (Auto) 0.0 TH/MM3 CBC Comment DIFF FINAL Differential Comment Blood Urea Nitrogen 34 MG/DL Creatinine 7.83 MG/DL Random Glucose 119 MG/DL Total Protein 7.9 GM/DL Albumin 3.5 GM/DL Calcium Level 9.2 MG/DL Alkaline Phosphatase 240 U/L Aspartate Amino Transf (AST/SGOT) 30 U/L Alanine Aminotransferase (ALT/SGPT) 19 U/L Total Bilirubin 0.7 MG/DL Sodium Level 141 MEQ/L Potassium Level 4.3 MEQ/L Chloride Level 101 MEQ/L Carbon Dioxide Level 28.2 MEQ/L Anion Gap 12 MEQ/L Estimat Glomerular Filtration Rate 6 ML/MIN Total Creatine Kinase 101 U/L Creatine Kinase MB 1.2 NG/ML Troponin I 0.04 NG/ML B-Type Natriuretic Peptide 92 PG/ML MDM Medical Decision Making Medical Screen Exam Complete: Yes Emergency Medical Condition: Yes Medical Record Reviewed: Yes Interpretation(s) EKG shows normal sinus rhythm at a rate of 85 bpm with occasional PACs. LVH with no signs of acute ST-T changes. Laboratory Tests Test 06/18/17 09:00 06/18/17 10:05 Red Blood Count 3.52 MIL/MM3 (4.00-5.30) Mean Corpuscular Volume 101.1 FL (80.0-100.0) Red Cell Distribution Width 17.8 % (11.6-17.2) Blood Urea Nitrogen 34 MG/DL (7-18) Creatinine 7.83 MG/DL (0.50-1.00) Random Glucose 119 MG/DL (74-106) Alkaline Phosphatase 240 U/L (45-117) Estimat Glomerular Filtration Rate 6 ML/MIN (>89) Last 24 hours Impressions Chest X-Ray 06/18/17 0932 Signed Impressions: Service Date/Time: Friday, June 18, 2017 09:49 - CONCLUSION: No acute disease. Aroldo Abdullahi MD Differential Diagnosis Chest pains: Hypertensive urgency versus ACS versus dysrhythmias versus pneumonia versus CHF Narrative Course EKG did not show any signs of acute changes. Cardiac enzymes are negative. Chest x-rays unremarkable. Considering the patient's cardiac history with intermediate changes on myocardial scan recently, my plan would be to admit her for further evaluation a chest pain. Diagnosis Primary Impression: Chest pain Admitting Information Admitting Physician Requests: Admit Tre Amanda MD Jun 18, 2017 10:16
[2017-06-18 10:22] LABS: ANION GAP 10 MEQ/L (5-15); BICARBONATE 30.3 MEQ/L (21.0-32.0); CHLORIDE 100 MEQ/L (98-107); CREATINE KINASE 101 U/L (26-192); GLOMERULAR FILTRATION RATE 7 ML/MIN (>89); POTASSIUM 4.3 MEQ/L (3.5-5.1); SODIUM (NA) 140 MEQ/L (136-145)
[2017-06-18 10:24] LABS: BLOOD UREA NITROGEN 34 MG/DL (7-18)
[2017-06-18 10:30] LABS: ALT (GPT) 19 U/L (10-53)
[2017-06-18 10:31] LABS: ALKALINE PHOSPHATASE 240 U/L (45-117); TOTAL BILIRUBIN ADULT 0.7 MG/DL (0.2-1.0)
[2017-06-18 10:36] LABS: CKMB 1.2 NG/ML (0.5-3.6)
[2017-06-18 10:37] LABS: ANION GAP 12 MEQ/L (5-15); AST (GOT) 30 U/L (15-37); BICARBONATE 28.2 MEQ/L (21.0-32.0); CHLORIDE 101 MEQ/L (98-107); GLOMERULAR FILTRATION RATE 6 ML/MIN (>89); POTASSIUM 4.3 MEQ/L (3.5-5.1); SODIUM (NA) 141 MEQ/L (136-145)
[2017-06-18 10:39] LABS: BLOOD UREA NITROGEN 34 MG/DL (7-18)
[2017-06-18] MEDS ORDERED: ONDANSETRON HCL 4 MG/2 ML VIAL IV PUSH ONE (11:30)
[2017-06-18] MEDS ORDERED: PROPOFOL 200 MG/20 ML AMP IV PUSH ONE (13:00)
--- NOTE | 2017-06-18 13:07 | PD.CONS ---
HPI Service Nephrology Consult Requested By Reason for Consult ESRD on HD Primary Care Physician John Genao, DO History of Present Illness This is a 56 y/o AAF who was receiving outpatient HD and developed substernal chest pain and became hypotensive. Her treatment was cut short after 1 hr, with 700 ml UF. PMH listed below, includes HTN, DM II, anemia, PVD, and she is legally blind. On exam she is still having chest pain. It is reproducible to palpation and is also pleuritic in nature. She has NTG patch on currently. Her AVF is still accessed currently. Her vital signs are stable. We were consulted for renal management. (Ladonna Mercedes) Review of Systems Constitutional: COMPLAINS OF: Fatigue, DENIES: Fever, Change in appetite Respiratory: DENIES: Shortness of breath Cardiovascular: COMPLAINS OF: Chest pain, DENIES: Dyspnea on Exertion, Lower Extremity Edema (Ladonna Mercedes) Past Family Social History Allergies: Coded Allergies: acetaminophen (Unverified Allergy, Severe, VOMITING, 06/18/17) linezolid (Unverified Allergy, Severe, VOMITING, 06/18/17) piperacillin (Unverified Allergy, Severe, VOMITING, 06/18/17) simvastatin (Unverified Allergy, Severe, VOMITING, 06/18/17) tazobactam (Unverified Allergy, Severe, VOMITING, 06/18/17) oxycodone (Unverified Adverse Reaction, Severe, VOMITING, 06/18/17) Past Medical History ESRD on HD MWF DM II Hypertension Anemia Hyperparathyroidism Legal blindness Diabetic neuropathy Hyperlipidemia Diabetic retinopathy Past Surgical History Appendectomy Left AV fistula Cataract Eye surgery right AKA Reported Medications Senna Plus 8.6-50 mg (Sennosides-Docusate Sodium) 1 Tab Tab 2 Tab PO BID Transderm-Scop (Scopolamine) 1 Mg/3 Days Dis 1 Patch T-DERMAL Q3D Labetalol (Labetalol HCl) 100 Mg Tab 50 Mg PO BID 30 Days check BP prior to taking hold for SBP < 130 and recheck after an hour Levemir Inj (Insulin Detemir) 1,000 unit/ 10 ML Vial 10 Units SQ HS 30 Days check blood sugar prior to taking Wgkfuryvvz-Tjpnnmtcohtuy-Ocrrcchk 50-325-40 Mg Tab 1 Tab PO Q6H PRN Norvasc (Amlodipine Besylate) 5 Mg Tab 5 Mg PO DAILY 30 Days Eq Acetaminophen (Acetaminophen) 325 Mg Tab 650 Mg PO Q4H PRN Nexium (Esomeprazole DR) 40 Mg Capdr 40 Mg PO DAILY [address] (Duloxetine HCl) 20 Mg Capdr 20 Mg PO DAILY Combigan Opth Drops (Brimonidine-Timolol Opth Drops) 0.2-0.5% Soln 1 Drop EACH EYE Q12HR 14 Days Sensipar (Cinacalcet) 60 Mg Tab 60 Mg PO DAILY Pravachol (Pravastatin) 80 Mg Tab 80 Mg PO HS Metoclopramide (Metoclopramide HCl) 5 Mg Tab 5 Mg PO TIDAC 14 Days Active Ordered Medications No medications ordered as of yet Family History no hx of renal impairment Social History former smoker no ETOH she is legally blind lives with boyfriend unemployed full code (Ladonna Mercedes) Physical Exam Vital Signs Vital Signs Date Time Temp Pulse Resp B/P (MAP) Pulse Ox O2 Delivery O2 Flow Rate FiO2 06/18/17 09:49 81 20 149/74 (99) 06/18/17 09:43 Nasal Cannula 2.00 06/18/17 09:43 99 06/18/17 09:27 83 24 100 06/18/17 09:25 98.6 81 24 184/86 (118) 100 Physical Exam GENERAL: Well-nourished, well-developed AAF lying in bed SKIN: Warm and dry. HEAD: Her forehead is swollen EYES: Legally blind, hematoma above left eye , small laceration NECK: Supple, trachea midline. No JVD or lymphadenopathy. CARDIOVASCULAR: Regular rate and rhythm without murmurs, gallops, or rubs. Pain with palpation and inspiration RESPIRATORY: Breath sounds equal bilaterally. No accessory muscle use. GASTROINTESTINAL: Abdomen soft, non-tender, nondistended. EXTREMITIES: No cyanosis, or edema. AV fistula left arm, + thrill/bruit NEUROLOGICAL: Awake, alert, and oriented x 3. Non-focal deficit Laboratory Laboratory Tests Test 06/18/17 09:00 06/18/17 10:05 White Blood Count 7.6 Red Blood Count 3.52 Hemoglobin 11.8 Hematocrit 35.6 Mean Corpuscular Volume 101.1 Mean Corpuscular Hemoglobin 33.5 Mean Corpuscular Hemoglobin Concent 33.1 Red Cell Distribution Width 17.8 Platelet Count 199 Mean Platelet Volume 10.1 Neutrophils (%) (Auto) 67.4 Lymphocytes (%) (Auto) 21.4 Monocytes (%) (Auto) 7.4 Eosinophils (%) (Auto) 3.2 Basophils (%) (Auto) 0.6 Neutrophils # (Auto) 5.1 Lymphocytes # (Auto) 1.6 Monocytes # (Auto) 0.6 Eosinophils # (Auto) 0.2 Basophils # (Auto) 0.0 CBC Comment DIFF FINAL Differential Comment Blood Urea Nitrogen 34 Creatinine 7.83 Random Glucose 119 Total Protein 7.9 Albumin 3.5 Calcium Level 9.2 Alkaline Phosphatase 240 Aspartate Amino Transf (AST/SGOT) 30 Alanine Aminotransferase (ALT/SGPT) 19 Total Bilirubin 0.7 Sodium Level 141 Potassium Level 4.3 Chloride Level 101 Carbon Dioxide Level 28.2 Anion Gap 12 Estimat Glomerular Filtration Rate 6 Total Creatine Kinase 101 Creatine Kinase MB 1.2 Troponin I 0.04 B-Type Natriuretic Peptide 92 (Ladonna Mercedes) Result Diagram: 06/18/17 0900 06/18/17 0900 Imaging Last Impressions Chest X-Ray 06/18/17 0932 Signed Impressions: Service Date/Time: Sunday, June 18, 2017 09:49 - CONCLUSION: No acute disease. Aroldo Abdullahi MD (Ladonna Mercedes) Assessment and Plan Problem List: (1) ESRD (end stage renal disease) ICD Codes: N18.6 - End stage renal disease Status: Chronic Plan: Typical MWF HD, had 1 hr tretment today with 700 ml UF her electrolytes are unremarkable we will hold HD today and resume MWF HD schedule AVF still accessed, HD nurses are aware and will remove shortly avoid IVF while admitted intermittent renal panel high protein diet encouraged epogen not required (2) Chest pain ICD Codes: R07.9 - Chest pain, unspecified Status: Acute Plan: has NTG patch on currently the pain is reproducible to palpation and inspiration likely to have cardiology consult (3) Metabolic bone disease ICD Codes: E88.9 - Metabolic disorder, unspecified; M90.80 - Osteopathy in diseases classified elsewhere, unspecified site Status: Acute Plan: resume home renvela check phosphorus level intermittently (4) HTN (hypertension) ICD Codes: I10 - Essential (primary) hypertension Status: Chronic Plan: monitor blood pressure resume home medications (5) DM2 (diabetes mellitus, type 2) ICD Codes: E11.9 - Type 2 diabetes mellitus without complications Status: Chronic Plan: monitor glucose, insulin as needed (Ladonna Mercedes) Problem List: (1) ESRD (end stage renal disease) ICD Codes: N18.6 - End stage renal disease Status: Chronic Plan: Typical MWF HD, had 1 hr tretment today with 700 ml UF her electrolytes are unremarkable we will hold HD today and resume MWF HD schedule AVF still accessed, HD nurses are aware and will remove shortly avoid IVF while admitted intermittent renal panel high protein diet encouraged epogen not required (2) Chest pain ICD Codes: R07.9 - Chest pain, unspecified Status: Acute Plan: has NTG patch on currently the pain is reproducible to palpation and inspiration likely to have cardiology consult (3) Metabolic bone disease ICD Codes: E88.9 - Metabolic disorder, unspecified; M90.80 - Osteopathy in diseases classified elsewhere, unspecified site Status: Acute Plan: resume home renvela check phosphorus level intermittently (4) HTN (hypertension) ICD Codes: I10 - Essential (primary) hypertension Status: Chronic Plan: monitor blood pressure resume home medications (5) DM2 (diabetes mellitus, type 2) ICD Codes: E11.9 - Type 2 diabetes mellitus without complications Status: Chronic Plan: monitor glucose, insulin as needed Assessment and Plan patient was seen and examined. Agree with above assessment and plan. (Sai Suggs MD) Problem Qualifiers (1) DM2 (diabetes mellitus, type 2): Ladonna Mercedes Jun 18, 2017 13:06 Sai Suggs MD Jun 18, 2017 21:57
--- NOTE | 2017-06-18 14:58 | RADRPT ---
EXAM DATE/TIME: 06/18/2017 12:01 [facility] COMPARISON: CT ABDOMEN & PELVIS W/O CONTRAST, May 02, 2017, 19:44. INDICATIONS : Chest pain and vomiting. ORAL CONTRAST: No oral contrast ingested. RADIATION DOSE: 15.94 CTDIvol (mGy) MEDICAL HISTORY : Renal disease, end stage. Cardiovascular disease Diabetes mellitus type 2. SURGICAL HISTORY : Appendectomy. ENCOUNTER: Initial ACUITY: 1 day PAIN SCALE: 0/10 LOCATION: abdomen. TECHNIQUE: Volumetric scanning of the abdomen and pelvis was performed. Using automated exposure control and ad justment of the mA and/or kV according to patient size, radiation dose was kept as low as reasonably achievable to obtain optimal diagnostic quality images. DICOM format image data is available electro nically for review and comparison. FINDINGS: LOWER LUNGS: The visualized lower lungs are clear. LIVER: Homogeneous density without lesion. There is no dilation of the biliary tree. Gallstones are noted the benign appearing gallbladder. SPLEEN: Normal size without lesion. PANCREAS: Within normal limits. ADRENAL GLANDS: Within normal limits. RIGHT KIDNEY: Normal in size and shape. There is no mass, stone, or hydronephrosis. LEFT KIDNEY: Normal in size and shape. There is no mass, stone, or hydronephrosis.. VASCULAR: Moderate abdominal calcifications are noted without aneurysm. BOWEL/MESENTERY: The stomach, small bowel, and colon demonstrate no acute abnormality. There is no free intraperitone al air or fluid. RETROPERITONEUM: There is no lymphadenopathy. PELVIC CONTENTS: Moderate vascular calcifications without diverticuli. ABDOMINAL WALL: Within normal limits. INGUINAL: There is no lymphadenopathy or hernia. MUSCULOSKELETAL: Within normal limits for patient age. CONCLUSION: I do not see an etiology for the patient's abdominal pain. Findings typical of ather osclerotic vascular disease of renal failure. Corey Rogers MD FACR on June 18, 2017 at 14:53 Board Certified Radiologist. This report was verified electronically.
[2017-06-18] MEDS ORDERED: ONDANSETRON HCL 4 MG/2 ML VIAL IVP PRN (17:00)
[2017-06-18] MEDS ORDERED: SODIUM CHLORIDE 0.9% FLUSH 10 ML FLUSH IV FLUSH PRN ×2 (17:00→18:00)
--- NOTE | 2017-06-18 17:18 | EKG ---
Date Performed: 06/18/2017 Time Performed: 09:27:13 PTAGE: 56 years EKG: Sinus rhythm WITH OCCASIONAL VENTRICULAR PREMATURE COMPLEXES BORDERLINE LEFT AXIS DEVIATION NONSPECIFIC T-WAVE AB NORMALITY Since previous tracing, no significant change noted BORDERLINE ECG PREVIOUS TRACING : 06/13/2017 06.45 DOCTOR: Elissa Forman Interpretating Date/Time 06/18/2017 17:17:40
--- NOTE | 2017-06-18 17:20 | EKG ---
Date Performed: 06/18/2017 Time Performed: 12:34:16 PTAGE: 56 years EKG: Sinus rhythm WITH OCCASIONAL VENTRICULAR PREMATURE COMPLEXES NONSPECIFIC T-WAVE ABNORMALITY Since previous tracin g, no significant change noted BORDERLINE ECG PREVIOUS TRACING : 06/18/2017 09.27.13 DOCTOR: Elissa Forman Interpretating Date/Time 06/18/2017 17:18:15
[2017-06-18] MEDS ORDERED: NALOXONE HCL 0.4 MG/ML AMP IV PRN (18:00)
[2017-06-18] MEDS ORDERED: oxyCODONE/ACETAMINOPHEN 10 MG/325 MG TAB PO PRN (18:00)
[2017-06-18] MEDS ORDERED: PROCHLORPERAZINE 25 MG SUPP RECTAL PRN (18:00)
[2017-06-18] MEDS ORDERED: MORPHINE SULFATE 4 MG/ML INJ IV PRN ×2 (18:00)
[2017-06-18] MEDS ORDERED: GLUCAGON 1 MG/ML VIAL OTHER PRN (18:00)
[2017-06-18] MEDS ORDERED: SENNOSIDES 8.6 MG TAB PO PRN (18:00)
[2017-06-18] MEDS ORDERED: BISACODYL 10 MG SUPP RECTAL PRN (18:00)
[2017-06-18] MEDS ORDERED: LACTULOSE SYRUP 20 GM/30 ML CUP PO PRN (18:00)
[2017-06-18] MEDS ORDERED: ACETAMINOPHEN 325 MG TAB PO PRN ×3 (18:00)
[2017-06-18] MEDS ORDERED: oxyCODONE/ACETAMINOPHEN 5 MG/325 MG TAB PO PRN (18:00)
[2017-06-18] MEDS ORDERED: ZOLPIDEM TARTRATE 5 MG TAB PO PRN (18:00)
[2017-06-18] MEDS ORDERED: ACETAMIN 325 MG/BUTALBITAL 50 MG/CAFFEINE 40 MG TAB PO PRN (18:00)
[2017-06-18] MEDS ORDERED: MAGNESIUM HYDROXIDE SUSP 30 ML CUP PO PRN (18:00)
[2017-06-18] MEDS ORDERED: DEXTROSE 50% IN WATER 50 ML VIAL(D50) IV PRN (18:00)
--- NOTE | 2017-06-18 18:16 | HHI.HP ---
[facility] Service [facility] Hospitalists Primary Care Physician John Genao DO Admission Diagnosis chest pain Diagnoses: (1) Chest pain in adult Diagnosis: Principal (2) DM2 (diabetes mellitus, type 2) Diagnosis: Principal (3) HTN (hypertension) Diagnosis: Secondary (4) ESRD (end stage renal disease) Diagnosis: Principal (5) Encephalopathy acute Diagnosis: Secondary (6) Kidney failure Diagnosis: Secondary (7) Confusion Diagnosis: Secondary (8) DM type 2 with diabetic peripheral neuropathy (9) Hyperlipidemia Diagnosis: Secondary Chief Complaint: Chest pain Diaphoresis Travel History International Travel<30 Days: No Contact w/Intl Traveler <30 Da: No Traveled to Known Affected Are: No History of Present Illness This is a 56-year-old female with past medical history significant for end-stage renal disease on hemodialysis MWF, type 2 diabetes mellitus, hypertension, anemia, dyslipidemia, PVD, legal blindness and reported CAD with a questionable history of previous cardiac stent implant per patient report who presents to [facility] ED with complaints of 7 out of 10 nonradiating substernal sharp chest pain that began approximately an hour after initiation of her dialysis treatment earlier today. Patient reports associated hypotension, diaphoresis and nausea. She also reports episode of emesis after arriving in the ED. She reports chronic shortness of breath at rest and with activity. She also reports postural dizziness which is not new. She denies any recent illness or fever, chills. Patient was admitted chest pain center last month and underwent a stress test which did not show any evidence of ischemia. She was instructed to follow-up with her dough catcher following her discharge but she's been unable to do so as of yet. Additionally, patient underwent an echocardiogram 01/03/17 showing ejection fraction of 55-60% and no wall motion abnormalities. In the ED, initial troponin was 0.04. BNP was 92. EKG normal sinus rhythm with nonspecific T-wave abnormalities. Chest x-ray showed no acute disease. CT abd/pelvis showed findings typical of atherosclerotic vascular disease or renal failure. Creatinine is elevated at 7.83 and nephrology was consulted while patient was in ED. Patient was given nitroglycerin and aspirin. She is currently chest pain-free. Review of Systems Constitutional: COMPLAINS OF: Fatigue, DENIES: Diaphoretic episodes, Fever, Weight gain, Weight loss, Chills, Dizziness, Change in appetite Endocrine: DENIES: Abnorml menstrual pattern, Heat/cold intolerance Eyes: DENIES: Blurred vision, Diplopia, Eye inflammation, Eye pain Ears, nose, mouth, throat: DENIES: Tinnitus, Hearing loss, Vertigo, Odynophagia Respiratory: COMPLAINS OF: Cough, DENIES: Apneas, Snoring, Wheezing, Hemoptysis Cardiovascular: COMPLAINS OF: Chest pain, Dyspnea on Exertion, DENIES: Palpitations, Syncope, PND, Lower Extremity Edema Gastrointestinal: DENIES: Abdominal pain, Black stools, Bloody stools, Constipation, Diarrhea, Nausea, Vomiting Genitourinary: DENIES: Abnormal vaginal bleeding, Dysmenorrhea Musculoskeletal: COMPLAINS OF: Joint pain, Muscle aches, DENIES: Stiffness, Joint Swelling Integumentary: DENIES: Abnormal pigmentation, Pruritus, Rash, Nail changes Hematologic/lymphatic: DENIES: Bruising, Lymphadenopathy Immunologic/allergic: DENIES: Eczema, Urticaria Neurologic: COMPLAINS OF: Headache, DENIES: Abnormal gait, Localized weakness, Paresthesias, Seizures, Speech Problems Psychiatric: COMPLAINS OF: Anxiety, Depression, DENIES: Confusion, Mood changes , Hallucinations, Agitation, Suicidal Ideation, Homicidal Ideation Except as stated in HPI: all other systems reviewed are Neg Past Family Social History Past Medical History ESRD on HD MWF DM type 2 HTN Anemia Dyslipidemia H/O mild TBI s/p fall with CT showing SAH and parenchymal hemorrhage right frontal left temporal lobe, treated nonoperatively GERD Legally blind Diabetic neuropathy Diabetic retinopathy PAD Secondary hyperparathyroidism Anxiety/depression Questionable CAD with possible h/o cardiac implants ppr Past Surgical History Appendectomy Left arm AV fistula C section Cataract surgery Previous stenting bilateral lower extremities Questionable cardiac stent ppr Reported Medications Senna Plus 8.6-50 mg (Sennosides-Docusate Sodium) 1 Tab Tab 2 Tab PO BID Transderm-Scop (Scopolamine) 1 Mg/3 Days Dis 1 Patch T-DERMAL Q3D Labetalol (Labetalol HCl) 100 Mg Tab 50 Mg PO BID 30 Days check BP prior to taking hold for SBP < 130 and recheck after an hour Levemir Inj (Insulin Detemir) 1,000 unit/ 10 ML Vial 10 Units SQ HS 30 Days check blood sugar prior to taking Aaapdlkxpp-Zyjfixrodcrnz-Wwzunxrs 50-325-40 Mg Tab 1 Tab PO Q6H PRN Norvasc (Amlodipine Besylate) 5 Mg Tab 5 Mg PO DAILY 30 Days Eq Acetaminophen (Acetaminophen) 325 Mg Tab 650 Mg PO Q4H PRN Nexium (Esomeprazole DR) 40 Mg Capdr 40 Mg PO DAILY [address] (Duloxetine HCl) 20 Mg Capdr 20 Mg PO DAILY Combigan Opth Drops (Brimonidine-Timolol Opth Drops) 0.2-0.5% Soln 1 Drop EACH EYE Q12HR 14 Days Sensipar (Cinacalcet) 60 Mg Tab 60 Mg PO DAILY Pravachol (Pravastatin) 80 Mg Tab 80 Mg PO HS Metoclopramide (Metoclopramide HCl) 5 Mg Tab 5 Mg PO TIDAC 14 Days Allergies: Coded Allergies: acetaminophen (Unverified Allergy, Severe, VOMITING, 06/18/17) linezolid (Unverified Allergy, Severe, VOMITING, 06/18/17) oxycodone (Unverified Allergy, Severe, VOMITING, 06/18/17) piperacillin (Unverified Allergy, Severe, VOMITING, 06/18/17) simvastatin (Unverified Allergy, Severe, VOMITING, 06/18/17) tazobactam (Unverified Allergy, Severe, VOMITING, 06/18/17) Active Ordered Medications Current Medications Medications (Trade) Dose Ordered Sig/Peter Route Start Time Stop Time Status Last Admin (NS Flush) 2 ml UNSCH PRN IV FLUSH 06/18/17 17:00 (NS Flush) 2 ml BID IV FLUSH 06/18/17 21:00 (Zofran Inj) 4 mg Q6H PRN IVP 06/18/17 17:00 Family History Mother and Father, DM, HTN Social History Patient denies any history of tobacco use. She denies any alcohol consumption. Denies any illicit drug use. She lives with her significant other. Physical Exam Vital Signs Vital Signs Date Time Temp Pulse Resp B/P (MAP) Pulse Ox O2 Delivery O2 Flow Rate FiO2 06/18/17 14:43 87 06/18/17 14:32 94 Nasal Cannula 2.00 06/18/17 13:07 98.3 84 20 143/75 (97) 100 06/18/17 09:49 81 20 149/74 (99) 06/18/17 09:43 Nasal Cannula 2.00 06/18/17 09:43 99 06/18/17 09:27 83 24 100 06/18/17 09:25 98.6 81 24 184/86 (118) 100 Physical Exam GENERAL: This is a well-nourished, well-developed patient, in no apparent distress. Awake and alert. SKIN: No rashes, ecchymoses or lesions. Cool and dry. HEAD: Atraumatic. Normocephalic. No temporal or scalp tenderness. EYES: Pupils equal round and reactive. Extraocular motions intact. No scleral icterus. No injection or drainage. ENT: Nose without bleeding or purulent drainage. Throat without erythema, tonsillar hypertrophy or exudate. Uvula midline. Airway patent. NECK: Trachea midline. No lymphadenopathy. Supple, nontender, no meningeal signs. CARDIOVASCULAR: Regular rate and rhythm without murmurs, gallops, or rubs. RESPIRATORY: Clear to auscultation. Breath sounds equal bilaterally. No wheezes , rales, or rhonchi. GASTROINTESTINAL: Abdomen soft, non-tender, nondistended. No hepato-splenomegaly , or palpable masses. No guarding. MUSCULOSKELETAL: Extremities without clubbing, cyanosis, or edema. (+)AV fistula left arm, + thrill. No joint tenderness, effusion, or edema noted. No calf tenderness. NEUROLOGICAL: Awake and alert. Able to move all extremities. No focal neurologic finding. Normal speech. INSIGHT AND JUDGEMENT ARE LIMITED MOOD AND BEHAVIOR ARE INAPPROPRIATE Laboratory Laboratory Tests Test 06/18/17 09:00 06/18/17 10:05 White Blood Count 7.6 Red Blood Count 3.52 Hemoglobin 11.8 Hematocrit 35.6 Mean Corpuscular Volume 101.1 Mean Corpuscular Hemoglobin 33.5 Mean Corpuscular Hemoglobin Concent 33.1 Red Cell Distribution Width 17.8 Platelet Count 199 Mean Platelet Volume 10.1 Neutrophils (%) (Auto) 67.4 Lymphocytes (%) (Auto) 21.4 Monocytes (%) (Auto) 7.4 Eosinophils (%) (Auto) 3.2 Basophils (%) (Auto) 0.6 Neutrophils # (Auto) 5.1 Lymphocytes # (Auto) 1.6 Monocytes # (Auto) 0.6 Eosinophils # (Auto) 0.2 Basophils # (Auto) 0.0 CBC Comment DIFF FINAL Differential Comment Blood Urea Nitrogen 34 Creatinine 7.83 Random Glucose 119 Total Protein 7.9 Albumin 3.5 Calcium Level 9.2 Alkaline Phosphatase 240 Aspartate Amino Transf (AST/SGOT) 30 Alanine Aminotransferase (ALT/SGPT) 19 Total Bilirubin 0.7 Sodium Level 141 Potassium Level 4.3 Chloride Level 101 Carbon Dioxide Level 28.2 Anion Gap 12 Estimat Glomerular Filtration Rate 6 Total Creatine Kinase 101 Creatine Kinase MB 1.2 Troponin I 0.04 B-Type Natriuretic Peptide 92 Result Diagram: 06/18/17 0900 06/18/17 09 Imaging Last Impressions Abdomen/Pelvis CT 06/18/17 1130 Signed Impressions: Service Date/Time: Sunday, June 18, 2017 12:01 - CONCLUSION: I do not see an etiology for the patient's abdominal pain. Findings typical of atherosclerotic vascular disease of renal failure. Corey Rogers MD FACR Chest X-Ray 06/18/17 0932 Signed Impressions: Service Date/Time: Sunday, June 18, 2017 09:49 - CONCLUSION: No acute disease. Aroldo Abdullahi MD Capluis fernandoi VTE Risk Assessment Caprini VTE Risk Assessment: Mod/High Risk (score >= 2) Caprini Risk Assessment Model Point Value = 1 Point Value = 2 Point Value = 3 Point Value = 5 Age 41-60 Minor surgery BMI > 25 kg/m2 Swollen legs Varicose veins or History of unexplained or recurrent spontaneous Oral contraceptives or hormone replacement Sepsis (< 1 month) Serious lung disease, including pneumonia (< 1 month) Abnormal pulmonary function Acute myocardial infarction Congestive heart failure (< 1 month) History of inflammatory bowel disease Medical patient at bed rest Age 61-74 Arthroscopic surgery Major open surgery (> 45 min) Laparoscopic surgery (> 45 min) Malignancy Confined to bed (> 72 hours) Immobilizing plaster cast Central venous access Age >= 75 History of VTE Family history of VTE Factor V Leiden Prothrombin [id number] Lupus anticoagulant Anticardiolipin antibodies Elevated serum homocysteine Heparin-induced thrombocytopenia Other congenital or acquired thrombophilia Stroke (< 1 month) Elective arthroplasty Hip, pelvis, or leg fracture Acute spinal cord injury (< 1 month) Prophylaxis Regimen Total Risk Factor Score Risk Level Prophylaxis Regimen 0-1 Low Early ambulation 2 Moderate Order ONE of the following: *Sequential Compression Device (SCD) *Heparin 5000 units SQ BID 3-4 Higher Order ONE of the following medications: *Heparin 5000 units SQ TID *Enoxaparin/Lovenox 40 mg SQ daily (WT < 150 kg, CrCl > 30 mL/min) *Enoxaparin/Lovenox 30 mg SQ daily (WT < 150 kg, CrCl > 10-29 mL/min) *Enoxaparin/Lovenox 30 mg SQ BID (WT < 150 kg, CrCl > 30 mL/min) AND/OR *Sequential Compression Device (SCD) 5 or more Highest Order ONE of the following medications: *Heparin 5000 units SQ TID (Preferred with Epidurals) *Enoxaparin/Lovenox 40 mg SQ daily (WT < 150 kg, CrCl > 30 mL/min) *Enoxaparin/Lovenox 30 mg SQ daily (WT < 150 kg, CrCl > 10-29 mL/min) *Enoxaparin/Lovenox 30 mg SQ BID (WT < 150 kg, CrCl > 30 mL/min) AND *Sequential Compression Device (SCD) Assessment and Plan Assessment and Plan 56-year-old female with past medical history significant for end-stage renal disease on hemodialysis MWF, type 2 diabetes mellitus, hypertension, anemia, dyslipidemia, PVD, legal blindness and reported CAD with a questionable history of previous cardiac stent implant per patient report who presents to [facility] ED with complaints of 7 out of 10 nonradiating substernal sharp chest pain that began approximately an hour after initiation of her dialysis treatment earlier today. Chest pain R/O ACS Admit to obs Continuous cardiac monitoring Cycle cardiac enzymes Cycle EKGs Zofran when necessary nausea Supplemental oxygen Aspirin daily Obtain TSH and fasting lipid panel Morphine IV when necessary chest pain request med rec be completed by nursing staff End-stage renal disease on HD MWF Nephrology consulted while patient in the ED and has already been seen by patient. Per their recommendations, hold HD today and resume [facility] HD schedule, avoid IV fluids, high protein diet and epogen not required Avoid nephrotoxic agents Monitor renal panel intermittently Hypertension Controlled Resume patient's home antihypertensives - amlodipine 5 mg daily and labetalol 50 mg by mouth twice a day monitor BP IDDM, controlled resume patient home dose of insulin accucheks ISS last HgbA1c in the system 06/03/17 was 5.0 Dyslipidemia Resume patient's home dose of statin therapy H/O mild TBI s/p fall 05/[address] showing SAH and parenchymal hemorrhage right frontal left temporal lobe, treated nonoperatively Headaches Continue patient's home dose of Fioricet as needed Depression/Anxiety Continue patient's home dose of Cymbalta 20 mg daily Gastroparesis Continue patient on home dose of metoclopramide 5 mg 3 times a day Secondary hyperparathyroidism Continue patient on home dose of Sensipar DVT prophylaxis Heparin subcutaneous SCD/JEANNIE hose The exam, history, and the medical decision-making described in the above note were completed with the assistance of the mid-level provider. I reviewed and agree with the findings presented. I attest that I had a [id number] encounter with the patient on the same day, and personally performed and documented my assessment and findings in the medical record. Code Status FULL CODE Discussed Condition With Dr. Leyva, patient, ED physician and patients boyfriend Problem Qualifiers (1) DM2 (diabetes mellitus, type 2): Dinah Sherman Jun 18, 2017 18:16 Corey Leyva DO Jun 18, 2017 18:20
[2017-06-18] MEDS: ONDANSETRON HCL 4 MG/2 ML VIAL IVP PRN (19:58)
[2017-06-18 20:39] LABS: PROTHROMBIN TIME - PATIENT 10.8 SEC (9.8-11.6)
[2017-06-18] MEDS ORDERED: SODIUM CHLORIDE 0.9% FLUSH 10 ML FLUSH IV FLUSH SCH (21:00)
[2017-06-18] MEDS: INSULIN ASPART SUPPLEMENTAL SCALE SQ SCH (21:00)
[2017-06-18] MEDS ORDERED: SCOPOLAMINE 1.5 MG PATCH T-DERMAL SCH (21:00)
[2017-06-18] MEDS ORDERED: DOCUSATE SODIUM 50 MG/SENNA 8.6 MG TAB PO SCH (21:00)
[2017-06-18] MEDS ORDERED: NON-FORMULARY DRUG (Brimonidine-Timolol Opth Drops (Combigan Opth Drops) 1 DROP) EACH EYE SCH (21:00)
[2017-06-19] VITALS (14 sets, daily range): BP systolic 125–167; BP diastolic 63–76; PULSE 66–99; RESP 17–18; TEMP 97.5–99.1; O2SAT 96–100
[2017-06-19] MEDS: INSULIN DETEMIR 100 UNITS/ML VIAL SQ SCH ×2 (00:10→22:37)
[2017-06-19] MEDS: PRAVASTATIN SOD 80 MG TAB PO SCH ×2 (00:11→22:33)
[2017-06-19] MEDS: HEPARIN SODIUM - SQ 10,000 UNITS/ML VIAL SQ SCH ×2 (00:12→08:43)
[2017-06-19] MEDS: DOCUSATE SODIUM 50 MG/SENNA 8.6 MG TAB PO SCH ×3 (00:12→22:33)
[2017-06-19] MEDS: LABETALOL HCL 100 MG TAB PO SCH ×3 (00:12→22:33)
[2017-06-19] MEDS: SODIUM CHLORIDE 0.9% FLUSH 10 ML FLUSH IV FLUSH SCH ×3 (00:12→22:34)
[2017-06-19 02:52] LABS: AUTOMATED NEUTROPHIL # 5.1 TH/MM3 (1.8-7.7); BASOPHIL # 0.1 TH/MM3 (0-0.2); BASOPHIL % 0.7 % (0.0-2.0); EOSINOPHIL # 0.2 TH/MM3 (0-0.4); EOSINOPHIL % 2.8 % (0.0-4.0); HEMATOCRIT 34.9 % (35.0-46.0); HEMO FLAGS DIFF FINAL; LYMPH % 23.4 % (9.0-44.0); LYMPHOCYTE # 1.8 TH/MM3 (1.0-4.8); MEAN CELL VOLUME 102.2 FL (80.0-100.0); MEAN CORPUSCULAR HEMOGLOBIN 33.9 PG (27.0-34.0); MEAN CORPUSCULAR HGB CONC 33.1 % (32.0-36.0); MONO % 7.7 % (0.0-8.0); NEUT % 65.4 % (16.0-70.0); PLATELET COUNT 165 TH/MM3 (150-450); RED BLOOD COUNT 3.41 MIL/MM3 (4.00-5.30); RED CELL DISTRIBUTION WIDTH 17.9 % (11.6-17.2); WHITE BLOOD COUNT 7.8 TH/MM3 (4.0-11.0)
[2017-06-19 03:12] LABS: MAGNESIUM 2.3 MG/DL (1.5-2.5)
[2017-06-19 03:29] LABS: ALKALINE PHOSPHATASE 213 U/L (45-117); ALT (GPT) 16 U/L (10-53); ANION GAP 10 MEQ/L (5-15); AST (GOT) 15 U/L (15-37); BICARBONATE 31.6 MEQ/L (21.0-32.0); BLOOD UREA NITROGEN 42 MG/DL (7-18); CHLORIDE 100 MEQ/L (98-107); FREE T4 0.96 NG/DL (0.76-1.46); GLOMERULAR FILTRATION RATE 5 ML/MIN (>89); HDL CHOLESTEROL 31.9 MG/DL (40.0-60.0); LDL CHOLESTEROL 68 MG/DL (0-99); MAGNESIUM 2.3 MG/DL (1.5-2.5); POTASSIUM 4.3 MEQ/L (3.5-5.1); SODIUM (NA) 142 MEQ/L (136-145); TOTAL BILIRUBIN ADULT 0.5 MG/DL (0.2-1.0)
[2017-06-19] MEDS: INSULIN ASPART SUPPLEMENTAL SCALE SQ SCH ×4 (07:00→21:00)
[2017-06-19] MEDS: ONDANSETRON HCL 4 MG/2 ML VIAL IVP PRN (08:42)
[2017-06-19] MEDS ORDERED: PANTOPRAZOLE SOD 40 MG DELAYED RELEASE TAB PO SCH (09:00)
[2017-06-19] MEDS: amLODIPine BESYLATE 5 MG TAB PO SCH (09:30)
[2017-06-19] MEDS: METOCLOPRAMIDE HCL 10 MG TAB PO SCH ×3 (09:32→17:49)
[2017-06-19] MEDS: DULoxetine HCl DR 20 MG CAP PO SCH (09:32)
[2017-06-19] MEDS: CINACALCET HYDROCHLORIDE 30 MG TAB PO SCH (09:32)
--- NOTE | 2017-06-19 10:47 | HHI.PR ---
Subjective Remarks Follow-up for chest pain. The patient is a poor historian. The patient denies any further chest pain or shortness of breath today. She is not sure how long and her dialysis session she was whenever she developed chest discomfort. She denies any recent weight changes and does not think her dry weight was adjusted recently. The patient complains of painful swallowing and coughing up a lot of saliva. She thinks that she may have had an EGD before. She is not sure she was taken off of her blood thinners after her recent head trauma. She is not sure what medications she takes at home, has a home nurse that manages them. Objective Vitals Vital Signs Date Time Temp Pulse Resp B/P (MAP) Pulse Ox O2 Delivery O2 Flow Rate FiO2 06/19/17 08:00 97.5 81 18 128/63 (84) 100 06/19/17 07:20 99 Nasal Cannula 1.50 06/19/17 06:56 98 21 06/19/17 04:21 99.1 76 18 138/70 (92) 98 06/19/17 04:05 95 06/19/17 00:25 99 06/18/17 23:21 99.0 75 18 145/85 (105) 96 06/18/17 20:22 96 06/18/17 20:15 98.5 96 18 189/91 (123) 100 06/18/17 19:11 Nasal Cannula 2.00 06/18/17 18:45 84 06/18/17 14:43 87 06/18/17 14:32 94 Nasal Cannula 2.00 06/18/17 13:07 98.3 84 20 143/75 (97) 100 I/O 06/18/17 06/18/17 06/18/17 06/19/17 06/19/17 06/19/17 07:00 15:00 23:00 07:00 15:00 23:00 Intake Total 240 ml Balance 240 ml Intake Oral 240 ml Result Diagram: 06/19/1722606/19/17226 Imaging Last Impressions Abdomen/Pelvis CT 06/18/17 1130 Signed Impressions: Service Date/Time: Sunday, June 18, 2017 12:01 - CONCLUSION: I do not see an etiology for the patient's abdominal pain. Findings typical of atherosclerotic vascular disease of renal failure. Corey Rogers MD FACR Chest X-Ray 06/18/17 0932 Signed Impressions: Service Date/Time: Sunday, June 18, 2017 09:49 - CONCLUSION: No acute disease. Aroldo Abdullahi MD Objective Remarks GENERAL: Well-developed well-nourished. In no acute distress. SKIN: Warm and dry. LUE AVF. HEENT: Normocephalic. Pupils equal and round. Mucous membranes pink and moist. Oropharynx patent. CARDIOVASCULAR: Regular rate and rhythm. No murmur appreciated. RESPIRATORY: No accessory muscle use. Clear to auscultation. Breath sounds equal bilaterally. GASTROINTESTINAL: Abdomen soft, non-tender, nondistended. Bowel sounds x4. MUSCULOSKELETAL: No obvious deformities. No clubbing or cyanosis. No edema. NEUROLOGICAL: Awake and alert. No focal neurological deficits. Moves upper and lower extremities spontaneously. Normal speech. PSYCHIATRIC: Appropriate mood and affect; insight and judgment fair. A/P Problem List: (1) Chest pain in adult ICD Code: R07.9 - Chest pain, unspecified Status: Acute (2) DM2 (diabetes mellitus, type 2) ICD Code: E11.9 - Type 2 diabetes mellitus without complications Status: Chronic (3) HTN (hypertension) ICD Code: I10 - Essential (primary) hypertension Status: Chronic (4) ESRD (end stage renal disease) ICD Code: N18.6 - End stage renal disease Status: Chronic (5) Kidney failure ICD Code: N19 - Unspecified kidney failure Status: Chronic (6) Hyperlipidemia ICD Code: E78.5 - Hyperlipidemia, unspecified Status: Chronic (7) Dysphagia ICD Code: R13.10 - Dysphagia, unspecified Status: Acute Assessment and Plan 56-year-old female with past medical history significant for end-stage renal disease on hemodialysis MWF, type 2 diabetes mellitus, hypertension, anemia, dyslipidemia, PVD, legal blindness and reported CAD with a questionable history of previous cardiac stent implant per patient report who presents to [facility] ED with complaints of 7 out of 10 nonradiating substernal sharp chest pain that began approximately an hour after initiation of her dialysis treatment earlier today. Chest pain Reviewed: EKG with nonspecific T-wave changes and occasional PVCs, no significant change from previous. Troponins flat. Lipid profile shows low HDL and high triglycerides, LDL 68. Chest x-ray clear. 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 Secondary hyperparathyroidism Nephrology consulted while patient in the ED and has already been seen by patient. Per their recommendations, hold HD today and resume MWF HD schedule, avoid IV fluids, high protein diet and epogen not required Continue Sensipar Avoid nephrotoxic agents Monitor renal panel intermittently Hypertension Controlled Continue patient's home antihypertensives - amlodipine 5 mg daily and labetalol 50 mg by mouth twice a day monitor BP IDDM, controlled Continue patient home dose of insulin accucheks ISS last HgbA1c in the system 06/03/17 was 5.0 H/O mild TBI s/p fall 05/[address] showing SAH and parenchymal hemorrhage right frontal left temporal lobe, treated nonoperatively Headaches Continue patient's home dose of Fioricet as needed Depression/Anxiety Continue patient's home dose of Cymbalta 20 mg daily Gastroparesis Continue home metoclopramide and Protonix DVT prophylaxis Heparin subcutaneous SCD/JEANNIE hose Problem Qualifiers (1) DM2 (diabetes mellitus, type 2): Qualified Codes: E11.21 - Type 2 diabetes mellitus with diabetic nephropathy; 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
--- NOTE | 2017-06-19 10:56 | PD.CONS ---
HPI History of Present Illness This is a 56 year old who was admitted for chest pain. She has been evaluated with EKGs- no change from previous, unremarkable troponin's. According to the EMR, she was recently taken off aspirin and Plavix secondary to ICH. This morning, she was eating a piece of a banana and it became lodged in her upper esophagus and has not been able to swallow anything since. She reports that she was able to bring part of this back up, but since that time cannot swallow anything- including her secretions She reports difficulty with solids getting caught over the past few days, but denies any issues with liquids. She is bringing a large amount of frothy secretions up. She denies any odynophagia, heartburn. She is spitting up frothy secretions, but not having vomiting. She denies any abdominal pain. She was evaluated with EGD (08/25/16) revealed gastritis (s/p biopsy) in the antrum, hiatal hernia, esophagitis (no biopsy was done secondary to the patient desaturating). Pathology revealed reactive gastric mucosa with associated calcific material. (Ayesha Smalls) [facility] Past Medical History Poor historian, from EMR ESRD on HD MWF DM type 2 HTN Anemia Dyslipidemia Recent mild TBI s/p fall with CT showing SAH and parenchymal hemorrhage right frontal left temporal lobe, treated nonoperatively Gastritis, esophagitis Legally blind Diabetic neuropathy Diabetic retinopathy PAD Secondary hyperparathyroidism Anxiety/depression Questionable CAD with possible h/o cardiac stents, ppm Past Surgical History Appendectomy Left arm AV fistula C section Cataract surgery Previous stenting bilateral lower extremities Questionable cardiac stent PPM EGD (Ayesha Smalls) Coded Allergies: acetaminophen (Unverified Allergy, Severe, VOMITING, 06/18/17) linezolid (Unverified Allergy, Severe, VOMITING, 06/18/17) piperacillin (Unverified Allergy, Severe, VOMITING, 06/18/17) simvastatin (Unverified Allergy, Severe, VOMITING, 06/18/17) tazobactam (Unverified Allergy, Severe, VOMITING, 06/18/17) oxycodone (Unverified Adverse Reaction, Severe, VOMITING, 06/18/17) Medications Allergies Coded Allergies Type Severity Reaction Last Updated Verified acetaminophen Allergy Severe VOMITING 06/18/17 No linezolid Allergy Severe VOMITING 06/18/17 No piperacillin Allergy Severe VOMITING 06/18/17 No simvastatin Allergy Severe VOMITING 06/18/17 No tazobactam Allergy Severe VOMITING 06/18/17 No oxycodone Adverse Reaction Severe VOMITING 06/18/17 No Active Scripts Medications Dose Route/Sig Max Daily Dose Days Date Category Dose Instructions Senna Plus 8.6-50 mg (Sennosides-Docusate Sodium) 1 Tab Tab 2 Tab PO BID 05/16/17 Rx Transderm-Scop (Scopolamine) 1 Mg/3 Days Dis 1 Patch T-DERMAL Q3D 05/16/17 Rx Labetalol (Labetalol HCl) 100 Mg Tab 50 Mg PO BID 30 05/16/17 Rx check BP prior to taking hold for SBP < 130 and recheck after an hour Levemir Inj (Insulin Detemir) 1,000 unit/ 10 ML Vial 10 Units SQ HS 30 05/16/17 Rx check blood sugar prior to taking Akwtzpwpsg-Jqicrqxgyjcnj-Txyyiofq 50-325-40 Mg Tab 1 Tab PO Q6H PRN 05/16/17 Rx Norvasc (Amlodipine Besylate) 5 Mg Tab 5 Mg PO DAILY 30 05/16/17 Rx Eq Acetaminophen (Acetaminophen) 325 Mg Tab 650 Mg PO Q4H PRN 05/16/17 Rx Nexium (Esomeprazole DR) 40 Mg Capdr 40 Mg PO DAILY 30 05/16/[address] (Duloxetine HCl) 20 Mg Capdr 20 Mg PO DAILY 05/16/17 Rx Combigan Opth Drops (Brimonidine-Timolol Opth Drops) 0.2-0.5% Soln 1 Drop EACH EYE Q12HR 14 05/16/17 Rx Sensipar (Cinacalcet) 60 Mg Tab 60 Mg PO DAILY 05/16/17 Rx Pravachol (Pravastatin) 80 Mg Tab 80 Mg PO HS 05/16/17 Rx Metoclopramide (Metoclopramide HCl) 5 Mg Tab 5 Mg PO TIDAC 14 05/16/17 Rx Family History Mother and Father, DM, HTN Social History Patient denies any history of tobacco use. She denies any alcohol consumption. Denies any illicit drug use. She lives with her significant other. (Ayesha Smalls) Review of Systems Constitutional: COMPLAINS OF: Fatigue Respiratory: COMPLAINS OF: Cough Cardiovascular: COMPLAINS OF: Chest pain Gastrointestinal: COMPLAINS OF: Vomiting, Difficulty Swallowing, Odynophagia, DENIES: Abdominal pain, Bloody stools, Constipation, Diarrhea, Nausea, Heartburn Hematologic/lymphatic: DENIES: Bruising Neurologic: DENIES: Headache Psychiatric: DENIES: Confusion (poor historian) (Ayesha Smalls Jordanajames CORTEZ) GI Exam Vitals I&O Vital Signs Date Time Temp Pulse Resp B/P (MAP) Pulse Ox O2 Delivery O2 Flow Rate FiO2 06/19/17 08:00 97.5 81 18 128/63 (84) 100 06/19/17 07:20 99 Nasal Cannula 1.50 06/19/17 06:56 98 21 06/19/17 04:21 99.1 76 18 138/70 (92) 98 06/19/17 04:05 95 06/19/17 00:25 99 06/18/17 23:21 99.0 75 18 145/85 (105) 96 06/18/17 20:22 96 06/18/17 20:15 98.5 96 18 189/91 (123) 100 06/18/17 19:11 Nasal Cannula 2.00 06/18/17 18:45 84 06/18/17 14:43 87 06/18/17 14:32 94 Nasal Cannula 2.00 06/18/17 13:07 98.3 84 20 143/75 (97) 100 I/O 06/18/17 06/18/17 06/18/17 06/19/17 06/19/17 06/19/17 06:59 14:59 22:59 06:59 14:59 22:59 Intake Total 240 ml Balance 240 ml Intake Oral 240 ml Imaging Last Impressions Abdomen/Pelvis CT 06/18/17 1130 Signed Impressions: Service Date/Time: Sunday, June 18, 2017 12:01 - CONCLUSION: I do not see an etiology for the patient's abdominal pain. Findings typical of atherosclerotic vascular disease of renal failure. Corey Rogers MD FACR Chest X-Ray 06/18/17 0932 Signed Impressions: Service Date/Time: Sunday, June 18, 2017 09:49 - CONCLUSION: No acute disease. Aroldo Abdullahi MD Laboratory Test 06/18/17 20:10 06/19/17 02:27 Prothrombin Time 10.8 SEC Prothromb Time International Ratio 1.0 RATIO Total Creatine Kinase 99 U/L 81 U/L Troponin I 0.03 NG/ML 0.03 NG/ML White Blood Count 7.8 TH/MM3 Red Blood Count 3.41 MIL/MM3 Hemoglobin 11.6 GM/DL Hematocrit 34.9 % Mean Corpuscular Volume 102.2 FL Mean Corpuscular Hemoglobin 33.9 PG Mean Corpuscular Hemoglobin Concent 33.1 % Red Cell Distribution Width 17.9 % Platelet Count 165 TH/MM3 Mean Platelet Volume 9.8 FL Neutrophils (%) (Auto) 65.4 % Lymphocytes (%) (Auto) 23.4 % Monocytes (%) (Auto) 7.7 % Eosinophils (%) (Auto) 2.8 % Basophils (%) (Auto) 0.7 % Neutrophils # (Auto) 5.1 TH/MM3 Lymphocytes # (Auto) 1.8 TH/MM3 Monocytes # (Auto) 0.6 TH/MM3 Eosinophils # (Auto) 0.2 TH/MM3 Basophils # (Auto) 0.1 TH/MM3 CBC Comment DIFF FINAL Differential Comment Blood Urea Nitrogen 42 MG/DL Creatinine 9.82 MG/DL Random Glucose 140 MG/DL Total Protein 7.5 GM/DL Albumin 3.3 GM/DL Calcium Level 9.2 MG/DL Phosphorus Level 4.2 MG/DL Magnesium Level 2.3 MG/DL Alkaline Phosphatase 213 U/L Aspartate Amino Transf (AST/SGOT) 15 U/L Alanine Aminotransferase (ALT/SGPT) 16 U/L Total Bilirubin 0.5 MG/DL Sodium Level 142 MEQ/L Potassium Level 4.3 MEQ/L Chloride Level 100 MEQ/L Carbon Dioxide Level 31.6 MEQ/L Anion Gap 10 MEQ/L Estimat Glomerular Filtration Rate 5 ML/MIN Triglycerides Level 306 MG/DL Cholesterol Level 161 MG/DL LDL Cholesterol 68 MG/DL HDL Cholesterol 31.9 MG/DL Cholesterol/HDL Ratio 5.04 RATIO Free Thyroxine 0.96 NG/DL Thyroid Stimulating Hormone 3rd Gen 0.615 uIU/ML Physical Examination HEENT: Normocephalic; atraumatic; no jaundice. CHEST: CTA CARDIAC: RRR ABDOMEN: Soft, nondistended, nontender; no hepatosplenomegaly; bowel sounds are present in all four quadrants. EXTREMITIES: No clubbing, cyanosis, or edema. SKIN: Normal; no rash; no jaundice. TOW PICKER: No focal deficits; alert and oriented times three. Poor historian (Ayesha Smalls) Assessment and Plan Plan ASSESSMENT: - Food impaction, dysphagia, odynophagia. Pt reports hx of solids getting caught in upper esophagus x 2 days. This am, she was eating a banana and this became lodged in her upper esophagus. She was able to bring part of this back up, but has not been able to swallow anything since, including her oral secretions and is coughing up a large amount of frothy material. NPO. Plan for EGD for food impaction. PPI - Chest pain with hx of CAD. Pt was recently taken off Plavix/ASA secondary to ICH. Cardiology consulted. No changes on EKGs, unremarkable troponins. - Recent TBI, S/P fall. SAH and parenchymal hemorrhage right frontal left temporal lobe, treated nonoperatively. - Gastroparesis. On reglan at home. - ESRD, on HD Mondays, Wednesdays, Fridays. - HTN, DM, Depression/Anxiety. PLAN: - Plan for EGD for food impaction - Obtain consents - NPO - Protonix 40mg IV BID - Supportive care - Further recommendations to follow based on results of above - Pt seen and examined by Dr. Jordan and myself and this note is written on his behalf (Ayesha Smalls) Physician Comments Seen and examined, plan as above. The procedure explained to the patient including risk benefits and possible complications and she agreed to proceed. Further recommendations to follow. (Gaby Jordan MD) Ayesha Smalls Jun 19, 2017 10:56 Gaby Jordan MD Jun 19, 2017 12:15
[2017-06-19] MEDS ORDERED: PROPOFOL 200 MG/20 ML AMP IV ONE (12:00)
[2017-06-19] MEDS ORDERED: ONDANSETRON HCL 4 MG/2 ML VIAL IV PUSH ONE (12:00)
--- NOTE | 2017-06-19 13:03 | GIPROC ---
[facility] [address] [facility]. [facility], [address] EGD PROCEDURE REPORT EXAM DATE: 06/19/2017 PATIENT NAME: Mariza Lovell MR #: [id number] BIRTHDATE: 1960 ATTENDING: Gaby Jordan MD ORDER #: [id number] [employer]: Bryant Carmona and Cristal Villareal STATUS: inpatient INDICATIONS: The patient is a 56 yr old female here for an EGD due to foreign body removal from esophagus PROCEDURE PERFORMED: EGD w/ biopsy MEDICATIONS: None and Per Anesthesia. TOPICAL ANESTHETIC: none CONSENT: The patient understands the risks and benefits of the procedure and understands that these risks include, but are not limited to: sedation, allergic reaction, infection, perforation and/or bleeding. Alternative means of evaluation and treatment include, among others: physical exam, x-rays, and/or surgical intervention. The patient elects to proceed with this endoscopic procedure. medical equipment was checked for proper function. Hand hygiene and appropriate measures for infection prevention was taken. After the risks, benefits and alternatives of the procedure were thoroughly explained, Informed consent was verified, confirmed and timeout was successfully executed by the treatment team. The patient was anesthetized with topical anesthesia and the Pentax [id number] endoscope was introduced through the mouth and advanced to the second portion of the duodenum. Retroflexion was performed and was normal The gastroscope was then slowly withdrawn and removed. ESOPHAGUS: There was LA Class D esophagitis noted. Multiple biopsies were performed using cold forceps. Sample sent for histology. STOMACH: Multiple small non-bleeding, punctate, shallow, round and clean-based ulcers were found in the gastric antrum. Biopsies were taken at edge of the ulcers and at the center of the ulcers. DUODENUM: Multiple small non-bleeding, round, shallow and clean-based ulcers were found in the duodenal bulb. Moderate duodenal inflammation was found in the bulb and second portion of the duodenum. ADVERSE EVENTS: There were no complications. IMPRESSIONS: 1. There was LA Class D esophagitis with superficial ulcerations noted; multiple biopsies were performed 2. Multiple small ulcers were found in the gastric antrum; biopsies were taken 3. Multiple small ulcers were found in the duodenal bulb 4. Duodenal inflammation was found in the bulb and second portion of the duodenum 5. Retroflexion was performed and was normal RECOMMENDATIONS: 1. Await biopsy results. Biopsy results will not be ready for 7-10 days. If you don't hear from us in two weeks, call our office for biopsy results. 2. Start PPI PATIENT CONDITION: stable DISPOSITION: Observation REPEAT EXAM: NONE Gaby Jordan MD eSigned: Gaby Jordan MD 06/19/2017 1:03 PM cc: PATIENT NAME: Mariza Lovell MR#: [id number]
[2017-06-19] MEDS ORDERED: DO NOT ADM ANY ANTICOAGULANT DRUGS PRN (13:23)
[2017-06-19] MEDS: PANTOPRAZOLE SODIUM 40 MG VIAL IV PUSH SCH (15:01)
[2017-06-19] MEDS ORDERED: SODIUM CHLOR 0.9% 1000 ML INJ 1,000 ML IV PRN (15:33)
[2017-06-19] MEDS ORDERED: SODIUM CHLOR 0.9% 1000 ML INJ 1,000 ML OTHER PRN ×2 (15:33)
--- NOTE | 2017-06-19 15:33 | HHI.NPPN ---
Subjective Complaints: Chest Pain General Problems: Anemia Renal Failure: Chronic, End Stage Renal Disease Interval History Chest pain resolved. She had to have EGD for impacted food in esophagus. Eating during exam in no distress. (Ladonna Mercedes) Review of Systems Eyes Eyes Remarks blind (Ladonna Mercedes) Cardiovascular Cardiac: Chest Pain Cardiac Remarks mostly resolved (Ladonna Mercedes) Objective Data Data 06/19/17 06/20/17 19:00 07:00 Intake Total 100 ml Balance 100 ml Other 100 ml Vital Signs Date Time Temp Pulse Resp B/P (MAP) Pulse Ox O2 Delivery O2 Flow Rate FiO2 06/19/17 13:45 82 16 160/78 (105) 99 Room Air 06/19/17 13:30 82 16 167/86 (113) 100 Room Air 06/19/17 13:20 98.4 83 16 164/77 (106) 100 Nasal Cannula 2 06/19/17 08:30 2.00 06/19/17 08:00 97.5 81 18 128/63 (84) 100 06/19/17 07:20 99 Nasal Cannula 1.50 06/19/17 06:56 98 21 06/19/17 04:21 99.1 76 18 138/70 (92) 98 06/19/17 04:05 95 06/19/17 00:25 99 06/18/17 23:21 99.0 75 18 145/85 (105) 96 06/18/17 20:22 96 06/18/17 20:15 98.5 96 18 189/91 (123) 100 06/18/17 19:11 Nasal Cannula 2.00 06/18/17 18:45 84 (Ladonna Mercedes) -: 06/19/1722606/19/17226 Imaging Last 72 hours Impressions Abdomen/Pelvis CT 06/18/17 1130 Signed Impressions: Service Date/Time: Sunday, June 18, 2017 12:01 - CONCLUSION: I do not see an etiology for the patient's abdominal pain. Findings typical of atherosclerotic vascular disease of renal failure. Corey Rogers MD FACR Chest X-Ray 06/18/17 0932 Signed Impressions: Service Date/Time: Sunday, June 18, 2017 09:49 - CONCLUSION: No acute disease. Aroldo Abdullahi MD (Ladonna Mercedes) Physical Exam General Appearance: Well Developed, No Acute Distress, Comfortable (Ladonna Mercedes JACK WINDER) Neck Neck Exam: Neck Supple (Ladonna Mercedes. JACK WINDER) Pulmonary Resp Exam: Clear Bilaterally, Breath Sounds Equal (Ladonna Mercedes B. JACK WINDER) Cardiology CV Exam: Regular, Normal Sinus Rhythm (Ladonna Mercedes JACK WINDER) Gastrointestinal/Abdomen GI Exam: Soft, Non-Tender (Ladonna Mercedes JACK WINDER) Musculoskeletal MS Exam: Normal Tone (Ladonna Mercedes. JACK WINDER) Integumentary Skin Exam: Warm, Dry (Ladonna Mercedes JACK WINDER) Extremeties Extremities Exam: No Edema, Pedal Pulses Palpable (Ladonna Mercedes B. JACK WINDER) Neurologic Neuro Exam: Alert, Awake, Oriented, Speech Clear, Moving All Extremities (Ladonna MercedesP) Psychiatric Psych Exam: Appropriate Responses (Ladonna Mercedes) Assessment/Plan Discussed Condition With: Patient Assessment Summary: Anemia of CKD, Hypertension, End Stage Renal Disease Problem List: (1) ESRD (end stage renal disease) ICD Codes: N18.6 - End stage renal disease Status: Chronic Plan: Continue HD MWF, due tomorrow No acute electrolyte disorders, stable from renal perspective avoid IVF while admitted obtain intermittent renal panel high protein diet encouraged epogen not required (2) Chest pain ICD Codes: R07.9 - Chest pain, unspecified Status: Acute Plan: mostly resolved troponin negative x 3 (3) Metabolic bone disease ICD Codes: E88.9 - Metabolic disorder, unspecified; M90.80 - Osteopathy in diseases classified elsewhere, unspecified site Status: Acute Plan: continue renvela check phosphorus level intermittently (4) HTN (hypertension) ICD Codes: I10 - Essential (primary) hypertension Status: Chronic Plan: monitor blood pressure continue medications (5) DM2 (diabetes mellitus, type 2) ICD Codes: E11.9 - Type 2 diabetes mellitus without complications Status: Chronic Plan: monitor glucose, insulin as needed Plan cleared for discharge from renal perspective; her outpatient dialysis is at 6am ; we will dialyze inpatient if still admitted (Ladonna Mercedes) Plan patient was seen and examined. Agree with above assessment and plan. She can be discharged from renal standpoint. Notes were reviewed. (Sai Suggs MD) Problem Qualifiers (1) HTN (hypertension): Qualified Codes: I10 - Essential (primary) hypertension (2) DM2 (diabetes mellitus, type 2): Qualified Codes: E11.21 - Type 2 diabetes mellitus with diabetic nephropathy; Z79.4 - [facility] (current) use of insulin Ladonna Mercedes Jun 19, 2017 15:33 Sai Suggs MD Jun 19, 2017 16:28
[2017-06-19] MEDS ORDERED: cloNIDine HCL 0.1 MG TAB PO PRN (15:45)
[2017-06-19] MEDS ORDERED: diphenhydrAMINE HCL 25 MG CAP PO PRN (15:45)
[2017-06-19] MEDS ORDERED: SODIUM CHLORIDE 0.9% FLUSH 10 ML FLUSH IV FLUSH PRN (15:45)
[2017-06-19] MEDS ORDERED: GENTAMICIN SULFATE (DIALYSIS USE ONLY) 20 MG/2 ML VIAL IV PRN (15:45)
[2017-06-19] MEDS ORDERED: ACETAMINOPHEN 325 MG TAB PO PRN (15:45)
[2017-06-19] MEDS ORDERED: ONDANSETRON HCL 4 MG/2 ML VIAL IV PRN (15:45)
[2017-06-19] MEDS ORDERED: HEPARIN SODIUM - IV 10,000 UNITS/10 ML VIAL IVF PRN (15:45)
[2017-06-19] MEDS ORDERED: NITROGLYCERIN 0.4 MG SL 25 TABS/BTL SL PRN (15:45)
[2017-06-19] MEDS ORDERED: MANNITOL 12.5 GM/50 ML VIAL IV PRN (15:45)
[2017-06-19] MEDS ORDERED: ALBUMIN HUMAN 25% 25 GM/100 ML BAGP IV PRN (15:45)
[2017-06-19] MEDS ORDERED: GELATIN 12 MM/7 MM FOAM TOP PRN (15:45)
[2017-06-19] MEDS ORDERED: HEPARIN SODIUM - IV 10,000 UNITS/10 ML VIAL PRN (15:45)
[2017-06-19 16:57] LABS: HEMOGLOBIN A1b 1.9 %; HEMOGLOBIN Ao 85.4 %; HEMOGLOBIN LA1C 2.1 %; HEMOGLOBIN P3 5.3 %
--- NOTE | 2017-06-19 17:37 | EKG ---
Date Performed: 06/18/2017 Time Performed: 23:16:36 PTAGE: 56 years EKG: SINUS TACHYCARDIA LEFT ANTERIOR FASCICULAR BLOCK NONSPECIFIC T-WAVE ABNORMALITY ABNORMAL EC G PREVIOUS TRACING : 06/18/2017 17.32 Compared to prior tracing no significant change DOCTOR: Ronny Augustine Interpretating Date/Time 06/19/2017 17:34:59
--- NOTE | 2017-06-19 17:49 | EKG ---
Date Performed: 06/18/2017 Time Performed: 17:32:31 PTAGE: 56 years EKG: Sinus rhythm MARKED LEFT AXIS DEVIATION NONSPECIFIC T-WAVE ABNORMALITY ABNORMAL ECG Compared to prior tracing no significant change PREVIOUS TRACING : 06/18/2017 12.34 DOCTOR: Ronny Augustine Interpretating Date/Time 06/19/2017 17:48:21
[2017-06-20] VITALS (8 sets, daily range): BP systolic 113–139; BP diastolic 57–67; PULSE 75–89; RESP 18–21; TEMP 98–98.2; O2SAT 98–100
[2017-06-20] MEDS: PANTOPRAZOLE SODIUM 40 MG VIAL IV PUSH SCH ×2 (00:39→13:12)
[2017-06-20] MEDS: INSULIN ASPART SUPPLEMENTAL SCALE SQ SCH ×3 (06:09→19:09)
--- NOTE | 2017-06-20 08:43 | PD.CONS ---
HPI Service cardiology Consult Requested By hospitalist Reason for Consult possible chest pains Primary Care Physician John Genao, DO History of Present Illness admitted with epigastric pains radiating to lower chest with nausea and repeated vomiting pain sharp not related to activity with very tender epigastric area no syncope no edema not active diabetes htn renal failure Review of Systems Cardiovascular: COMPLAINS OF: Chest pain Gastrointestinal: COMPLAINS OF: Nausea, Vomiting Past Family Social History Allergies: Coded Allergies: acetaminophen (Unverified Allergy, Severe, VOMITING, 06/18/17) linezolid (Unverified Allergy, Severe, VOMITING, 06/18/17) piperacillin (Unverified Allergy, Severe, VOMITING, 06/18/17) simvastatin (Unverified Allergy, Severe, VOMITING, 06/18/17) tazobactam (Unverified Allergy, Severe, VOMITING, 06/18/17) oxycodone (Unverified Adverse Reaction, Severe, VOMITING, 06/18/17) Past Medical History as above and pvd and cad Past Surgical History non contributing Reported Medications Reported Meds & Active Scripts Active Senna Plus 8.6-50 mg (Sennosides-Docusate Sodium) 1 Tab Tab 2 Tab PO BID Transderm-Scop (Scopolamine) 1 Mg/3 Days Dis 1 Patch T-DERMAL Q3D Labetalol (Labetalol HCl) 100 Mg Tab 50 Mg PO BID 30 Days check BP prior to taking hold for SBP < 130 and recheck after an hour Levemir Inj (Insulin Detemir) 1,000 unit/ 10 ML Vial 10 Units SQ HS 30 Days check blood sugar prior to taking Grxwsqywop-Mmjegxgdsgnoc-Zccfrfcs 50-325-40 Mg Tab 1 Tab PO Q6H PRN Norvasc (Amlodipine Besylate) 5 Mg Tab 5 Mg PO DAILY 30 Days Eq Acetaminophen (Acetaminophen) 325 Mg Tab 650 Mg PO Q4H PRN Nexium (Esomeprazole DR) 40 Mg Capdr 40 Mg PO DAILY [address] (Duloxetine HCl) 20 Mg Capdr 20 Mg PO DAILY Combigan Opth Drops (Brimonidine-Timolol Opth Drops) 0.2-0.5% Soln 1 Drop EACH EYE Q12HR 14 Days Sensipar (Cinacalcet) 60 Mg Tab 60 Mg PO DAILY Pravachol (Pravastatin) 80 Mg Tab 80 Mg PO HS Metoclopramide (Metoclopramide HCl) 5 Mg Tab 5 Mg PO TIDAC 14 Days Active Ordered Medications Current Medications Medications (Trade) Dose Ordered Sig/Peter Route Start Time Stop Time Status Last Admin (D50w (Vial) Inj) 50 ml UNSCH PRN IV 06/18/17 18:00 (Glucagon Inj) 1 mg UNSCH PRN OTHER 06/18/17 18:00 (NovoLOG SUPPLEMENTAL SCALE) 1 ACHS SLIDING SCALE SQ 06/18/17 21:00 (NS Flush) 2 ml UNSCH PRN IV FLUSH 06/18/17 18:00 06/20/17 00:40 (NS Flush) 2 ml BID IV FLUSH 06/18/17 21:00 06/19/17 22:34 (Tylenol) 650 mg Q4H PRN PO 06/18/17 18:00 (Zofran Inj) 4 mg Q6H PRN IVP 06/18/17 18:00 06/19/17 08:42 (Compazine Supp) 25 mg Q12H PRN RECTAL 06/18/17 18:00 (Ambien) 5 mg HS PRN PO 06/18/17 18:00 (Heparin Inj) 5,000 units Q12H SQ 06/18/17 20:00 Future Hold 06/19/17 08:43 (Tylenol) 650 mg Q6H PRN PO 06/18/17 18:00 (Percocet 5-325 Mg) 1 tab Q6H PRN PO 06/18/17 18:00 (Percocet 10-325 Mg) 1 tab Q6H PRN PO 06/18/17 18:00 (Morphine Inj) 2 mg Q3H PRN IV 06/18/17 18:00 (Morphine Inj) 4 mg Q3H PRN IV 06/18/17 18:00 (Narcan Inj) 0.4 mg UNSCH PRN IV 06/18/17 18:00 (Milk Of Magnesia Liq) 30 ml Q12H PRN PO 06/18/17 18:00 (Senokot) 17.2 mg Q12H PRN PO 06/18/17 18:00 (Dulcolax Supp) 10 mg DAILY PRN RECTAL 06/18/17 18:00 (Lactulose Liq) 30 ml DAILY PRN PO 06/18/17 18:00 (Norvasc) 5 mg DAILY PO 06/19/17 09:00 06/19/17 09:30 (Fioricet 325-50-40) 1 tab Q6H PRN PO 06/18/17 18:00 (Cymbalta Dr) 20 mg DAILY PO 06/19/17 09:00 06/19/17 09:32 (Levemir Inj) 10 units HS SQ 06/18/17 21:00 06/19/17 22:37 (Trandate) 50 mg BID PO 06/18/17 21:00 06/19/17 22:33 (Reglan) 5 mg TIDAC PO 06/19/17 08:00 06/19/17 17:49 (Pravachol) 80 mg HS PO 06/18/17 21:00 06/19/17 22:33 (Transderm-Scop 1.5 Mg Patch.72 Hr) 1 patch Q3D T-DERMAL 06/18/17 21:00 06/19/17 08:50 (Maya-Colace) 2 tab BID PO 06/18/17 21:00 06/19/17 22:33 (Sensipar) 60 mg DAILY PO 06/19/17 09:00 06/19/17 09:32 (Protonix Inj) 40 mg Q12H IV PUSH 06/19/17 12:00 06/20/17 00:39 Miscellaneous Information ALL NURSING DEPARTME... UNSCH PRN .XX 06/19/17 13:23 06/20/17 13:22 Sodium Chloride 1,000 ml @ 0 mls/hr Q0M PRN OTHER 06/19/17 15:33 (Heparin Inj) 8,000 units UNSCH PRN IVF 06/19/17 15:45 Sodium Chloride 1,000 ml @ 200 mls/hr Q5H PRN IV 06/19/17 15:33 Sodium Chloride 1,000 ml @ 0 mls/hr Q0M PRN OTHER 06/19/17 15:33 (Mannitol Inj) 12.5 gm UNSCH PRN IV 06/19/17 15:45 (Albumin 25% Inj) 25 gm UNSCH PRN IV 06/19/17 15:45 (NS Flush) 5 ml UNSCH PRN IV FLUSH 06/19/17 15:45 (Heparin Inj) UNSCH PRN .XX 06/19/17 15:45 (Gentamicin (Dialysis) Inj) 20 mg UNSCH PRN IV 06/19/17 15:45 (Zofran Inj) 4 mg UNSCH PRN IV 06/19/17 15:45 (Tylenol) 650 mg UNSCH PRN PO 06/19/17 15:45 (Benadryl) 25 mg UNSCH PRN PO 06/19/17 15:45 (Nitrostat Sl) 0.4 mg UNSCH PRN SL 06/19/17 15:45 (Catapres) 0.1 mg UNSCH PRN PO 06/19/17 15:45 (Gelfoam 12 Mm/7 Mm Top) 1 foam UNSCH PRN TOP 06/19/17 15:45 Family History non contributing Social History no alcohol no drugs no tobacco legally blind Physical Exam Vital Signs Vital Signs Date Time Temp Pulse Resp B/P (MAP) Pulse Ox O2 Delivery O2 Flow Rate FiO2 06/20/17 04:46 98.1 86 18 113/61 (78) 98 06/20/17 04:04 85 06/20/17 00:06 84 06/19/17 23:45 98.3 86 17 125/67 (86) 96 06/19/17 20:08 89 06/19/17 20:07 100 21 06/19/17 20:00 Nasal Cannula 2.00 06/19/17 19:28 98.2 82 17 135/63 (87) 100 06/19/17 17:38 66 06/19/17 17:38 82 06/19/17 16:20 98.1 81 18 167/76 (106) 100 06/19/17 13:45 82 16 160/78 (105) 99 Room Air 06/19/17 13:30 82 16 167/86 (113) 100 Room Air 06/19/17 13:20 98.4 83 16 164/77 (106) 100 Nasal Cannula 2 06/19/17 12:07 83 06/19/17 10:07 83 Physical Exam heart s1s2 lung clear abdomen obese with tender upper quadrants ext pulses difficult to palpate with no edema Laboratory Laboratory Tests Test 06/19/17 20:16 Total Creatine Kinase 108 Troponin I 0.03 Result Diagram: 06/19/1722606/19/17226 Course GI work up and ct and ecg and enzymes noted Assessment and Plan Problem List: (1) CAD (coronary artery disease) ICD Codes: I25.10 - Atherosclerotic heart disease of [place] coronary artery without angina pectoris Status: Acute Plan: negative cardiac work up possibly GI in origin with severe epigastric pains and tenderness follow up as outpatient (2) Hypertension ICD Codes: I10 - Essential (primary) hypertension Status: Chronic (3) Fall down stairs ICD Codes: W10.8XXA - Fall down stairs Status: Acute (4) Head injury ICD Codes: S09.90XA - Unspecified injury of head, initial encounter Status: Acute (5) Abdominal pain ICD Codes: R10.9 - Unspecified abdominal pain Status: Acute (6) ESRD (end stage renal disease) ICD Codes: N18.6 - End stage renal disease Status: Chronic (7) HTN (hypertension) ICD Codes: I10 - Essential (primary) hypertension Status: Chronic (8) DM2 (diabetes mellitus, type 2) ICD Codes: E11.9 - Type 2 diabetes mellitus without complications Status: Chronic (9) Hyperlipidemia ICD Codes: E78.5 - Hyperlipidemia, unspecified Status: Chronic (10) Chest pain in adult ICD Codes: R07.9 - Chest pain, unspecified Status: Acute Problem Qualifiers (1) HTN (hypertension): Qualified Codes: I10 - Essential (primary) hypertension (2) DM2 (diabetes mellitus, type 2): Qualified Codes: E11.21 - Type 2 diabetes mellitus with diabetic nephropathy; 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
[2017-06-20] MEDS: DOCUSATE SODIUM 50 MG/SENNA 8.6 MG TAB PO SCH (09:02)
[2017-06-20] MEDS: CINACALCET HYDROCHLORIDE 30 MG TAB PO SCH (09:02)
[2017-06-20] MEDS: METOCLOPRAMIDE HCL 10 MG TAB PO SCH ×3 (09:02→19:09)
[2017-06-20] MEDS: DULoxetine HCl DR 20 MG CAP PO SCH (09:03)
[2017-06-20] MEDS: amLODIPine BESYLATE 5 MG TAB PO SCH (09:03)
[2017-06-20] MEDS: SODIUM CHLORIDE 0.9% FLUSH 10 ML FLUSH IV FLUSH SCH (09:03)
[2017-06-20] MEDS: LABETALOL HCL 100 MG TAB PO SCH (09:03)
--- NOTE | 2017-06-20 09:42 | HHI.PR ---
Subjective Remarks Follow-up for epigastric pain. The patient continues to have epigastric discomfort. She was not able to eat last night because she said it hurt to swallow. Currently she is hungry and wants to try to eat. She was supposed to have outpatient dialysis at 6:30 AM today. She is hoping to go home soon. May be going to inpatient dialysis today, D/W RN. Objective Vitals Vital Signs Date Time Temp Pulse Resp B/P (MAP) Pulse Ox O2 Delivery O2 Flow Rate FiO2 06/20/17 04:46 98.1 86 18 113/61 (78) 98 06/20/17 04:04 85 06/20/17 00:06 84 06/19/17 23:45 98.3 86 17 125/67 (86) 96 06/19/17 20:08 89 06/19/17 20:07 100 21 06/19/17 20:00 Nasal Cannula 2.00 06/19/17 19:28 98.2 82 17 135/63 (87) 100 06/19/17 17:38 66 06/19/17 17:38 82 06/19/17 16:20 98.1 81 18 167/76 (106) 100 06/19/17 13:45 82 16 160/78 (105) 99 Room Air 06/19/17 13:30 82 16 167/86 (113) 100 Room Air 06/19/17 13:20 98.4 83 16 164/77 (106) 100 Nasal Cannula 2 06/19/17 12:07 83 06/19/17 10:07 83 I/O 06/19/17 06/19/17 06/19/17 06/20/17 06/20/17 06/20/17 07:00 15:00 23:00 07:00 15:00 23:00 Intake Total 100 ml Balance 100 ml Other 100 ml # Bowel Movements 5 Result Diagram: 06/19/1722606/19/17226 Imaging Last Impressions Abdomen/Pelvis CT 06/18/17 1130 Signed Impressions: Service Date/Time: Sunday, June 18, 2017 12:01 - CONCLUSION: I do not see an etiology for the patient's abdominal pain. Findings typical of atherosclerotic vascular disease of renal failure. Corey Rogers MD FACR Chest X-Ray 06/18/17 0901 Signed Impressions: Service Date/Time: Sunday, June 18, 2017 09:49 - CONCLUSION: No acute disease. Aroldo Abdullahi MD Objective Remarks GENERAL: Well-developed well-nourished. In no acute distress. SKIN: Warm and dry. LUE AVF. HEENT: Normocephalic. Pupils equal and round. Mucous membranes pink and moist. CARDIOVASCULAR: Regular rate and rhythm. No murmur appreciated. RESPIRATORY: No accessory muscle use. Clear to auscultation. Breath sounds equal bilaterally. GASTROINTESTINAL: Abdomen soft, epigastric TTP, nondistended. Bowel sounds x4. MUSCULOSKELETAL: No obvious deformities. No clubbing or cyanosis. No edema. NEUROLOGICAL: Awake and alert. No focal neurological deficits. Moves upper and lower extremities spontaneously. Normal speech. PSYCHIATRIC: Appropriate mood and affect; insight and judgment fair. A/P Problem List: (1) Chest pain in adult ICD Code: R07.9 - Chest pain, unspecified Status: Acute (2) DM2 (diabetes mellitus, type 2) ICD Code: E11.9 - Type 2 diabetes mellitus without complications Status: Chronic (3) HTN (hypertension) ICD Code: I10 - Essential (primary) hypertension Status: Chronic (4) ESRD (end stage renal disease) ICD Code: N18.6 - End stage renal disease Status: Chronic (5) Kidney failure ICD Code: N19 - Unspecified kidney failure Status: Chronic (6) Hyperlipidemia ICD Code: E78.5 - Hyperlipidemia, unspecified Status: Chronic (7) Dysphagia ICD Code: R13.10 - Dysphagia, unspecified Status: Acute Assessment and Plan 56-year-old female with past medical history significant for end-stage renal disease on hemodialysis MWF, type 2 diabetes mellitus, hypertension, anemia, dyslipidemia, PVD, legal blindness and reported CAD with a questionable history of previous cardiac stent implant per patient report who presents to [facility] ED with complaints of 7 out of 10 nonradiating substernal sharp chest pain that began approximately an hour after initiation of her dialysis treatment earlier today. Chest pain, atypical: Suspect secondary to esophageal ulcers Reviewed: EKG with nonspecific T-wave changes and occasional PVCs, no significant change from previous. Troponins flat. Lipid profile shows low HDL and high triglycerides, LDL 68. Chest x-ray clear. Stress test 04/27 showed old inferior lateral infarct with no new ischemia. 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 Metz, recommended outpatient follow-up -Continue statin, beta glenna -Morphine IV when necessary chest pain Dysphagia: Secondary to esophageal ulcers GI consulted and performed EGD which showed class D esophagitis with superficial ulcerations, multiple small ulcers in the gastric antrum and duodenal bulb Abdominal CT unremarkable Diet as tolerated PPI twice a day End-stage renal disease on HD MWF. Secondary hyperparathyroidism Nephrology consulted while patient in the ED and has already been seen by patient. Per their recommendations, hold HD today and resume MWF HD schedule, avoid IV fluids, high protein diet and epogen not required Continue Sensipar Avoid nephrotoxic agents Monitor renal panel intermittently Hypertension Controlled Continue patient's home antihypertensives - amlodipine 5 mg daily and labetalol 50 mg by mouth twice a day monitor BP IDDM, controlled Continue patient home dose of insulin accucheks ISS last HgbA1c in the system 06/03/17 was 5.0 H/O mild TBI s/p fall 05/[address] showing SAH and parenchymal hemorrhage right frontal left temporal lobe, treated nonoperatively Headaches Continue patient's home dose of Fioricet as needed Depression/Anxiety Continue patient's home dose of Cymbalta 20 mg daily Gastroparesis Continue home metoclopramide and Protonix DVT prophylaxis Heparin subcutaneous SCD/JEANNIE hose Discharge Planning Discharge planning if patient is able to tolerate diet and when dialysis is arranged for today inpatient or outpatient. Problem Qualifiers (1) DM2 (diabetes mellitus, type 2): Qualified Codes: E11.21 - Type 2 diabetes mellitus with diabetic nephropathy; Z79.4 - exterminator (current) use of insulin (2) HTN (hypertension): Qualified Codes: I10 - Essential (primary) hypertension (3) Kidney failure: Qualified Codes: N18.6 - End stage renal disease; Z99.2 - Dependence on renal dialysis (4) Hyperlipidemia: Qualified Codes: E78.5 - Hyperlipidemia, unspecified (5) Dysphagia: Qualified Codes: R13.10 - Dysphagia, unspecified Leandro Casillas Jun 20, 2017 09:42
[2017-06-20] MEDS ORDERED: ESOM1CAP16 PO (09:44)
--- NOTE | 2017-06-20 10:25 | HHI.GIFU ---
Subjective Remarks Sitting up on side of bed. Eating breakfast- tolerating well. Eating scrambled eggs without any difficulty. No n/v. No bleeding. No abdominal pain. Objective Vitals I&O Vital Signs Date Time Temp Pulse Resp B/P (MAP) Pulse Ox O2 Delivery O2 Flow Rate FiO2 06/20/17 04:46 98.1 86 18 113/61 (78) 98 06/20/17 04:04 85 06/20/17 00:06 84 06/19/17 23:45 98.3 86 17 125/67 (86) 96 06/19/17 20:08 89 06/19/17 20:07 100 21 06/19/17 20:00 Nasal Cannula 2.00 06/19/17 19:28 98.2 82 17 135/63 (87) 100 06/19/17 17:38 66 06/19/17 17:38 82 06/19/17 16:20 98.1 81 18 167/76 (106) 100 06/19/17 13:45 82 16 160/78 (105) 99 Room Air 06/19/17 13:30 82 16 167/86 (113) 100 Room Air 06/19/17 13:20 98.4 83 16 164/77 (106) 100 Nasal Cannula 2 06/19/17 12:07 83 I/O 06/19/17 06/19/17 06/19/17 06/20/17 06/20/17 06/20/17 07:00 15:00 23:00 07:00 15:00 23:00 Intake Total 100 ml Balance 100 ml Other 100 ml # Bowel Movements 5 Laboratory Laboratory Tests Test 06/19/17 20:16 Total Creatine Kinase 108 Troponin I 0.03 Imaging Last Impressions Abdomen/Pelvis CT 06/18/17 1130 Signed Impressions: Service Date/Time: Sunday, June 18, 2017 12:01 - CONCLUSION: I do not see an etiology for the patient's abdominal pain. Findings typical of atherosclerotic vascular disease of renal failure. Corey Rogers MD FACR Chest X-Ray 06/18/17 0932 Signed Impressions: Service Date/Time: Sunday, June 18, 2017 09:49 - CONCLUSION: No acute disease. Aroldo Abdullahi MD Physical Exam HEENT: Normocephalic; atraumatic; no jaundice. CHEST: CTA CARDIAC: RRR ABDOMEN: Soft, nondistended, nontender; no hepatosplenomegaly; bowel sounds are present in all four quadrants. EXTREMITIES: No clubbing, cyanosis, or edema. SKIN: Normal; no rash; no jaundice. POLISHER SAND: No focal deficits; alert and oriented times three. Assessment and Plan Plan ASSESSMENT: - Food impaction, dysphagia, odynophagia. Pt reports hx of solids getting caught in upper esophagus x 2 days and had a banana become lodged in her esophagus yesterday am. S/P EGD (06/19/17)-----> 1. There was LA Class D esophagitis with superficial ulcerations noted; multiple biopsies were performed 2. Multiple small ulcers were found in the gastric antrum; biopsies were taken 3. Multiple small ulcers were found in the duodenal bulb 4. Duodenal inflammation was found in the bulb and second portion of the duodenum 5. Retroflexion was performed and was normal. Pathology pending. HH stable. Tolerating diet without difficulty. No bleeding, n/v/pain. PPI - Chest pain with hx of CAD. Pt was recently taken off Plavix/ASA secondary to ICH. No changes on EKGs, unremarkable troponins. S?p Cardiology evaluation, outpatient fu - Recent TBI, S/P fall. SAH and parenchymal hemorrhage right frontal left temporal lobe, treated nonoperatively. - Gastroparesis. On reglan at home. - ESRD, on HD Mondays, Wednesdays, Fridays. - HTN, DM, Depression/Anxiety. PLAN: - BRAD - Await pathology - Protonix 40mg po BID - Avoid NSAIDs - FU TC 2 weeks - Rpt. EGD in 4-6 weeks - Further recommendations to follow based on results of above - Pt seen and examined by Dr. Cavanaugh and myself and this note is written on his behalf Ayesha Smalls Jun 20, 2017 10:25
--- NOTE | 2017-06-20 12:08 | HHI.NPPN ---
Subjective Complaints: Chest Pain General Problems: Anemia Renal Failure: Chronic, End Stage Renal Disease Interval History Feeling better. She is to be discharged today after dialysis. (Ladonna Mercedes) Review of Systems Eyes Eyes Remarks blind (Ladonna Mercedes) Cardiovascular Cardiac: Chest Pain Cardiac Remarks mostly resolved (Ladonna Mercedes) Objective Data Data Vital Signs Date Time Temp Pulse Resp B/P (MAP) Pulse Ox O2 Delivery O2 Flow Rate FiO2 06/20/17 11:46 98.0 81 18 139/67 (91) 100 06/20/17 08:20 98.2 75 18 132/65 (87) 100 06/20/17 04:46 98.1 86 18 113/61 (78) 98 06/20/17 04:04 85 06/20/17 00:06 84 06/19/17 23:45 98.3 86 17 125/67 (86) 96 06/19/17 20:08 89 06/19/17 20:07 100 21 06/19/17 20:00 Nasal Cannula 2.00 06/19/17 19:28 98.2 82 17 135/63 (87) 100 06/19/17 17:38 66 06/19/17 17:38 82 06/19/17 16:20 98.1 81 18 167/76 (106) 100 06/19/17 13:45 82 16 160/78 (105) 99 Room Air 06/19/17 13:30 82 16 167/86 (113) 100 Room Air 06/19/17 13:20 98.4 83 16 164/77 (106) 100 Nasal Cannula 2 06/19/17 12:07 83 (Ladonna Mercedes) -: 06/19/17 0227 06/19/17 0227 Imaging Last 72 hours Impressions Abdomen/Pelvis CT 06/18/17 1130 Signed Impressions: Service Date/Time: Sunday, June 18, 2017 12:01 - CONCLUSION: I do not see an etiology for the patient's abdominal pain. Findings typical of atherosclerotic vascular disease of renal failure. Corey Rogers MD FACR Chest X-Ray 06/18/17 0932 Signed Impressions: Service Date/Time: Sunday, June 18, 2017 09:49 - CONCLUSION: No acute disease. Aroldo Abdullahi MD (Ladonna Mercedes) Physical Exam General Appearance: Well Developed, No Acute Distress, Comfortable (Ladonna Mercedes) Neck Neck Exam: Neck Supple (Ladonna Mercedes) Pulmonary Resp Exam: Clear Bilaterally, Breath Sounds Equal (Ladonna Mercedes) Cardiology CV Exam: Regular, Normal Sinus Rhythm (Ladonna Mercedes) Gastrointestinal/Abdomen GI Exam: Soft, Non-Tender (Ladonna Mercedes) Musculoskeletal MS Exam: Normal Tone (Ladonna Mercedes) Integumentary Skin Exam: Warm, Dry (Ladonna Mercedes) Extremeties Extremities Exam: No Edema, Pedal Pulses Palpable (Ladonna Mercedes) Neurologic Neuro Exam: Alert, Awake, Oriented, Speech Clear, Moving All Extremities (Ladonna Mercedes) Psychiatric Psych Exam: Appropriate Responses (Ladonna Mercedes) Assessment/Plan Discussed Condition With: Patient Assessment Summary: Anemia of CKD, Hypertension, End Stage Renal Disease Problem List: (1) ESRD (end stage renal disease) ICD Codes: N18.6 - End stage renal disease Status: Chronic Plan: Continue HD MWF, she is due today No acute electrolyte disorders, stable from renal perspective avoid IVF while admitted high protein diet encouraged epogen not required (2) Chest pain ICD Codes: R07.9 - Chest pain, unspecified Status: Acute Plan: mostly resolved troponin negative x 3 (3) Metabolic bone disease ICD Codes: E88.9 - Metabolic disorder, unspecified; M90.80 - Osteopathy in diseases classified elsewhere, unspecified site Status: Acute Plan: continue renvela check phosphorus level is at goal (4) HTN (hypertension) ICD Codes: I10 - Essential (primary) hypertension Status: Chronic Plan: monitor blood pressure continue medications (5) DM2 (diabetes mellitus, type 2) ICD Codes: E11.9 - Type 2 diabetes mellitus without complications Status: Chronic Plan: monitor glucose, insulin as needed Plan She can be discharged from renal standpoint. (Ladonna Mercedes) Plan patient was seen and examined. Agree with above assessment and plan. Seen during dialysis. (Sai Suggs MD) Problem Qualifiers (1) Chest pain: Qualified Codes: R07.9 - Chest pain, unspecified (2) HTN (hypertension): Qualified Codes: I10 - Essential (primary) hypertension (3) DM2 (diabetes mellitus, type 2): Qualified Codes: E11.21 - Type 2 diabetes mellitus with diabetic nephropathy; Z79.4 - shelter (current) use of insulin Ladonna Mercedes Jun 20, 2017 12:08 Sai Suggs MD Jun 20, 2017 15:20
--- NOTE | 2017-06-20 13:47 | HHI.DS ---
Discharge Summary Admission Date Jun 18, 2017 at 11:06 Discharge Date: Jun 20, 2017 Admitting Diagnosis chest pain (1) Chest pain in adult ICD Code: R07.9 - Chest pain, unspecified Diagnosis: Principal Status: Acute (2) DM2 (diabetes mellitus, type 2) ICD Code: E11.9 - Type 2 diabetes mellitus without complications Diagnosis: Secondary Status: Chronic (3) HTN (hypertension) ICD Code: I10 - Essential (primary) hypertension Diagnosis: Secondary Status: Chronic (4) ESRD (end stage renal disease) ICD Code: N18.6 - End stage renal disease Diagnosis: Secondary Status: Chronic (5) Hyperlipidemia ICD Code: E78.5 - Hyperlipidemia, unspecified Diagnosis: Secondary Status: Chronic (6) Dysphagia ICD Code: R13.10 - Dysphagia, unspecified Diagnosis: Secondary Status: Acute Procedures EGD 06/19/17 Brief History - From Admission This is a 56-year-old female with past medical history significant for end-stage renal disease on hemodialysis MWF, type 2 diabetes mellitus, hypertension, anemia, dyslipidemia, PVD, legal blindness and reported CAD with a questionable history of previous cardiac stent implant per patient report who presents to [facility] ED with complaints of 7 out of 10 nonradiating substernal sharp chest pain that began approximately an hour after initiation of her dialysis treatment earlier today. Patient reports associated hypotension, diaphoresis and nausea. She also reports episode of emesis after arriving in the ED. She reports chronic shortness of breath at rest and with activity. She also reports postural dizziness which is not new. She denies any recent illness or fever, chills. Patient was admitted chest pain center last month and underwent a stress test which did not show any evidence of ischemia. She was instructed to follow-up with her thermal cutter hand following her discharge but she's been unable to do so as of yet. Additionally, patient underwent an echocardiogram 01/03/17 showing ejection fraction of 55-60% and no wall motion abnormalities. In the ED, initial troponin was 0.04. BNP was 92. EKG normal sinus rhythm with nonspecific T-wave abnormalities. Chest x-ray showed no acute disease. CT abd/pelvis showed findings typical of atherosclerotic vascular disease or renal failure. Creatinine is elevated at 7.83 and nephrology was consulted while patient was in ED. Patient was given nitroglycerin and aspirin. She is currently chest pain-free. CBC/BMP: 06/19/17 0227 06/19/17 0227 Significant Findings Laboratory Tests Test 06/18/17 09:00 06/18/17 10:05 06/18/17 20:10 06/19/17 02:27 Red Blood Count 3.52 MIL/MM3 (4.00-5.30) 3.41 MIL/MM3 (4.00-5.30) Mean Corpuscular Volume 101.1 FL (80.0-100.0) 102.2 FL (80.0-100.0) Red Cell Distribution Width 17.8 % (11.6-17.2) 17.9 % (11.6-17.2) Blood Urea Nitrogen 34 MG/DL (7-18) 42 MG/DL (7-18) Creatinine 7.83 MG/DL (0.50-1.00) 9.82 MG/DL (0.50-1.00) Random Glucose 119 MG/DL (74-106) 140 MG/DL (74-106) Alkaline Phosphatase 240 U/L (45-117) 213 U/L (45-117) Estimat Glomerular Filtration Rate 6 ML/MIN (>89) 5 ML/MIN (>89) Hematocrit 34.9 % (35.0-46.0) Albumin 3.3 GM/DL (3.4-5.0) Triglycerides Level 306 MG/DL (42-150) HDL Cholesterol 31.9 MG/DL (40.0-60.0) Test 06/19/17 20:16 Imaging Last Impressions Abdomen/Pelvis CT 06/18/17 1130 Signed Impressions: Service Date/Time: Sunday, June 18, 2017 12:01 - CONCLUSION: I do not see an etiology for the patient's abdominal pain. Findings typical of atherosclerotic vascular disease of renal failure. Corey Rogers MD FACR Chest X-Ray 06/18/17 0932 Signed Impressions: Service Date/Time: Sunday, June 18, 2017 09:49 - CONCLUSION: No acute disease. Aroldo Abdullahi MD PE at Discharge GENERAL: Well-developed well-nourished. In no acute distress. SKIN: Warm and dry. LUE AVF. HEENT: Normocephalic. Pupils equal and round. Mucous membranes pink and moist. CARDIOVASCULAR: Regular rate and rhythm. No murmur appreciated. RESPIRATORY: No accessory muscle use. Clear to auscultation. Breath sounds equal bilaterally. GASTROINTESTINAL: Abdomen soft, epigastric TTP, nondistended. Bowel sounds x4. MUSCULOSKELETAL: No obvious deformities. No clubbing or cyanosis. No edema. NEUROLOGICAL: Awake and alert. No focal neurological deficits. Moves upper and lower extremities spontaneously. Normal speech. PSYCHIATRIC: Appropriate mood and affect; insight and judgment fair. Pt update on day of discharge Outpatient dialysis was not able to be arranged for the patient's dialysis center. The patient went to dialysis inpatient prior to discharge. The patient did have an episode of vomiting after lunch. Discussed with GI, likely secondary to gastroparesis, added Carafate and recommended holding the patient for now and see if she tolerates dinner. Hospital Course 56-year-old female with past medical history significant for end-stage renal disease on hemodialysis MWF, type 2 diabetes mellitus, hypertension, anemia, dyslipidemia, PVD, legal blindness and reported CAD with a questionable history of previous cardiac stent implant per patient report who presents to [facility] ED with complaints of 7 out of 10 nonradiating substernal sharp chest pain that began approximately an hour after initiation of her dialysis treatment. Chest pain, atypical: Suspect secondary to esophageal ulcers Findings: EKG with nonspecific T-wave changes and occasional PVCs, no significant change from previous. Troponins flat. Lipid profile shows low HDL and high triglycerides, LDL 68. Chest x-ray clear. Stress test 04/27 showed old inferior lateral infarct with no new ischemia. -It appears the patient was taken off of aspirin and Plavix recently due to ICH -Consulted patient's thermal cutter hand, Dr. Metz, recommended outpatient follow-up -Continue statin, beta glenna Dysphagia: Secondary to esophageal ulcers GI consulted and performed EGD which showed class D esophagitis with superficial ulcerations, multiple small ulcers in the gastric antrum and duodenal bulb Abdominal CT unremarkable Diet as tolerated PPI twice a day Carafate Pt Condition on Discharge: Stable Discharge Disposition: Discharge Home Discharge Time: > 30 minutes Discharge Instructions DIET: Follow Instructions for: Diabetic Diet, Renal Failure Diet Activities you can perform: Regular-No Restrictions Follow up Referrals: Cardiology - 2 Weeks with Nicholas Metz MD Gastroenterology - 10 Days @ [facility] PCP Follow-up - 1 Week with John Genao DO New Medications: Esomeprazole DR (Esomeprazole DR) 40 Mg Capdr 40 MG PO BID for ulcer, #60 CAP 0 Refills Continued Medications: Acetaminophen (Eq Acetaminophen) 325 Mg Tab 650 MG PO Q4H PRN for pain 1-5, #14 TAB Amlodipine (Norvasc) 5 Mg Tab 5 MG PO DAILY for 30 Days, TAB Brimonidine-Timolol Opth Drops (Combigan Opth Drops) 0.2-0.5% Soln 1 DROP EACH EYE Q12HR for Glaucoma for 14 Days, BOTTLE 0 Refills Uafhgnuyze-Qqraslrexylve-Yxlczvrt (Qifcnmlzxc-Gpuquwyicorss-Efeschzj) 50-325-40 Mg Tab 1 TAB PO Q6H PRN for headache , #20 TAB Cinacalcet (Sensipar) 60 Mg Tab 60 MG PO DAILY, #60 TAB [address] (Cymbalta DR) 20 Mg Capdr 20 MG PO DAILY, #30 CAP 0 Refills Insulin Detemir Inj (Levemir Inj) 1,000 unit/ 10 ML Vial 10 UNITS SQ HS for 30 Days, INJECTION check blood sugar prior to taking Labetalol (Labetalol) 100 Mg Tab 50 MG PO BID for 30 Days, TAB check BP prior to taking hold for SBP < 130 and recheck after an hour Metoclopramide (Metoclopramide) 5 Mg Tab 5 MG PO TIDAC for 14 Days, TAB 0 Refills Pravastatin (Pravachol) 80 Mg Tab 80 MG PO HS for Cholesterol Management, #30 TAB 0 Refills Scopolamine (Transderm-Scop) 1 Mg/3 Days Dis 1 PATCH T-DERMAL Q3D, #6 Sennosides-Docusate Sodium (Senna Plus 8.6-50 mg) 1 Tab Tab 2 TAB PO BID, #14 TAB Discontinued Medications: Esomeprazole DR (Nexium) 40 Mg Capdr 40 MG PO DAILY for 30 Days, CAP 0 Refills Leandro Casillas Jun 20, 2017 13:47
[2017-06-20] MEDS ORDERED: SUCRALFATE 1 GM/10 ML CUP PO SCH (16:00)
[2017-06-20] MEDS ORDERED: SUCR1S PO (17:02)
== END 2017-06-20 22:22 | disposition home or self-care (01) ==
LOC: NEPE 09:15 → NEDA 11:06 → NEPFCDU 12:51
PROVIDERS: ADMIT Hospitalist; ATTEND Hospitalist
DX: R07.89 Other chest pain (principal); R13.10 Dysphagia, unspecified; E11.9 Type 2 diabetes mellitus without complications; K31.84 Gastroparesis; I95.9 Hypotension, unspecified; K25.9 Gastric ulcer, unspecified as acute or chronic, without hemorrhage or perforation; K22.10 Ulcer of esophagus without bleeding; K26.9 Duodenal ulcer, unspecified as acute or chronic, without hemorrhage or perforation; N18.6 End stage renal disease; N25.81 Secondary hyperparathyroidism of renal origin; I25.10 Atherosclerotic heart disease of native coronary artery without angina pectoris; H54.8 Legal blindness, as defined in USA; F41.8 Other specified anxiety disorders; Z99.2 Dependence on renal dialysis; E11.21 Type 2 diabetes mellitus with diabetic nephropathy; D63.1 Anemia in chronic kidney disease; E21.3 Hyperparathyroidism, unspecified; E11.319 Type 2 diabetes mellitus with unspecified diabetic retinopathy without macular edema; G93.40 Encephalopathy, unspecified; E11.42 Type 2 diabetes mellitus with diabetic polyneuropathy; I12.0 Hypertensive chronic kidney disease with stage 5 chronic kidney disease or end stage renal disease; E11.22 Type 2 diabetes mellitus with diabetic chronic kidney disease; Z79.4 Long term (current) use of insulin; Z87.891 Personal history of nicotine dependence; Z87.820 Personal history of traumatic brain injury; Z91.81 History of falling
CPT/HCPCS: 00740; 43239; 71010; 74176; 80053; 80061; 82550; 82552; 82948; 83036; 83735; 83880; 84100; 84439; 84443; 84484; 85025; 85610; 88305; 88312; 93005; 96372; 96374; 96375; 96376; 97110; 97116; 97162; 97167; 99285; C9113; G0257; G0378; G8987; G8988; G8989; J1644; J2405; 80048; 90935

== ENCOUNTER 2017-09-03 10:05 | Observation (INO) | payer MEDICARE, MEDICAID ==
[~2017-09-03] VITALS: Ht 162.6 cm; Wt 90.0 kg
[~2017-09-03 10:05] MED LIST changes: -ACET1TAB86 PO; +ACET325T15 PO; +ESOM1CAP16 PO; -NEXI40CA PO; +SUCR1S PO
[2017-09-03 10:19] VITALS: BP 133/68; PULSE 80; RESP 20; TEMP 98.3; O2SAT 100
[2017-09-03] MEDS ORDERED: SODIUM CHLORIDE 0.9% FLUSH 10 ML FLUSH IVF PRN (10:30)
[2017-09-03 10:47] VITALS: RESP 20; O2SAT 100
--- NOTE | 2017-09-03 11:01 | PD ---
HPI Chief Complaint: Chest Pain Time Seen by Provider: 10:53 Travel History International Travel<30 days: No Contact w/Intl Traveler<30days: No Traveled to known affect area: No History of Present Illness HPI Patient's 56-year-old female end-stage renal disease on dialysis Friday past history of stroke per EMS presents emergency department for evaluation of chest pain in the middle of her chest radiating to right shoulder which onset during dialysis. Was 10 out of 10, was given nitroglycerin in route which completely relieved her pain. She's had a gradual return of her pain now. Patient states she had a stress test years ago. She's fairly repetitive and says "K "fairly often and her significant other who arrives states this is her normal. Patient states she's never had a heart attack before, is unsure as to whether or not she is taking any blood thinners. Denies any injuries denies any shortness of breath denies any focalized weakness abdominal pain nausea vomiting. Symptoms started just prior to arrival , resolved, context as above, middle of her chest. PFSH Past Medical History Anemia: Yes Arthritis: Yes Asthma: No Autoimmune Disease: No Blood Disorders: Yes (anemia of chronic disease) Anxiety: Yes Depression: Yes Heart Rhythm Problems: No Cancer: No Cardiac Catheterization: No Cardiovascular Problems: Yes High Cholesterol: Yes Chemotherapy: No Chest Pain: Yes Congestive Heart Failure: No COPD: No Cerebrovascular Accident: No Diabetes: Yes (TYPE II ) Dialysis: Yes ([facility] FRI/FRI/FRI LAST WENT 04/25/17) Diminished Hearing: No Endocrine: No Gastrointestinal Disorders: No GERD: No Glaucoma: No Genitourinary: Yes Headaches: Yes Hepatitis: No Hiatal Hernia: No Heparin Induced Thrombocytopen: No Hypertension: Yes Immune Disorder: No Implanted Vascular Access Dvce: Yes (L UPPER ARM AVF) Musculoskeletal: No Neurologic: No Psychiatric: Yes Reproductive: No (c section) Respiratory: No Migraines: No Radiation Therapy: No Renal Failure: Yes Seizures: No Sickle Cell Disease: No Sleep Apnea: No Thyroid Disease: No Ulcer: No PNEUMOCCOCAL Vaccine (Year): 2 ?: Not Menopausal: Yes : 2 Para: 1 Miscarriage: 1 : 0 Past Surgical History Abdominal Surgery: Yes (appendectomy) AICD: No Appendectomy: Yes Arteriovenous Shunt: No Body Medical Devices: left AV fistula Cardiac Surgery: No Section: Yes Coronary Artery Bypass Graft: Yes Ear Surgery: No Endocrine Surgery: No Eye Surgery: Yes (bilateral cataracts removal) Genitourinary Surgery: No Gynecologic Surgery: No Insulin Pump: No Joint Replacement: No Oral Surgery: No Pacemaker: No Thoracic Surgery: No Other Surgery: Yes (LEFT ARM SHUNT PLACEMENT) Social History Alcohol Use: No Tobacco Use: No Substance Use: No Allergies-Medications (Allergen,Severity, Reaction): Coded Allergies: acetaminophen (Unverified Allergy, Severe, VOMITING, 06/18/17) linezolid (Unverified Allergy, Severe, VOMITING, 06/18/17) piperacillin (Unverified Allergy, Severe, VOMITING, 06/18/17) simvastatin (Unverified Allergy, Severe, VOMITING, 06/18/17) tazobactam (Unverified Allergy, Severe, VOMITING, 06/18/17) oxycodone (Unverified Adverse Reaction, Severe, VOMITING, 06/18/17) Reported Meds & Prescriptions Reported Meds & Active Scripts Active Labetalol (Labetalol HCl) 100 Mg Tab 50 Mg PO BID 30 Days check BP prior to taking hold for SBP < 130 and recheck after an hour Levemir Inj (Insulin Detemir) 1,000 unit/ 10 ML Vial 10 Units SQ HS 30 Days check blood sugar prior to taking Pzzxazwcdn-Nimpyffakhlsa-Hvanpmyu 50-325-40 Mg Tab 1 Tab PO Q6H PRN Norvasc (Amlodipine Besylate) 5 Mg Tab 5 Mg PO DAILY [address] (Duloxetine HCl) 20 Mg Capdr 20 Mg PO DAILY Combigan Opth Drops (Brimonidine-Timolol Opth Drops) 0.2-0.5% Soln 1 Drop EACH EYE Q12HR 14 Days Reported Coumadin (Warfarin) 5 Mg Tab 5 Mg PO DAILY Tramadol (Tramadol HCl) 50 Mg Tab 50 Mg PO Q4H PRN Carafate (Sucralfate) 1 Gram Tab 1 Gm PO TID On empty stomach (7am,11am and 4pm) Senna-Plus (Sennosides-Docusate Sodium) 8.6-50 Mg Tab 1 Tab PO DAILY Renvela (Sevelamer Carbonate) 800 Mg Tab 2,400 Mg PO TID Take 3 tabs (2,400mg) three times a day with meals & 1 tab (800mg) with snacks Renal Vitamin (B-Complex W/ C & Folic Acid) 1 Tab 1 Tab PO DAILY Protonix (Pantoprazole Sodium) 40 Mg Tab 40 Mg PO DAILY Midodrine 10 Mg Tab 10 Mg PO TID Keppra (Levetiracetam) 500 Mg Tab 1,000 Mg PO TID Lasix (Furosemide) 80 Mg Tab 80 Mg PO DAILY Diphenhydramine HCl 50 Mg Cap 50 Mg PO TID PRN Plavix (Clopidogrel Bisulfate) 75 Mg Tab 75 Mg PO DAILY Dulcolax DR (Bisacodyl) 5 Mg Tabdr 5 Mg PO BID Lipitor (Atorvastatin Calcium) 10 Mg Tab 10 Mg PO HS Allopurinol 100 Mg Tab 100 Mg PO DAILY Advair Diskus Inh (Fluticasone-Salmeterol Inh) 250-50 Mcg/Blist Aer 1 Puff INH BID Rinse mouth after use. Review of Systems Except as stated in HPI: all other systems reviewed are Neg Physical Exam Narrative GENERAL: Well-developed well-nourished, overweight, no obvious distress. Repetitive verbalization as above. SKIN: Focused skin assessment warm/dry. HEAD: Atraumatic. Normocephalic. EYES: Pupils equal and round. No scleral icterus. No injection or drainage. ENT: No nasal bleeding or discharge. Mucous membranes pink and moist. NECK: Trachea midline. No JVD. CARDIOVASCULAR: Regular rate and rhythm. No murmur appreciated. RESPIRATORY: No accessory muscle use. Clear to auscultation. Breath sounds equal bilaterally. GASTROINTESTINAL: Abdomen soft, non-tender, nondistended. Hepatic and splenic margins not palpable. Left-sided brachial AV fistula with palpable thrill. MUSCULOSKELETAL: No obvious deformities. No clubbing. No cyanosis. No edema. Patient is no tenderness to the mid sternum, she does have some tenderness to light palpation of the right scapula. No bony tenderness is appears to be more soft tissue. NEUROLOGICAL: Awake and alert. 5 out of 5 strength in all 4 extremities, graded nerves II-12 are grossly intact and nonfocal, repetitive verbalization as in history of present illness. PSYCHIATRIC: Appropriate mood and affect; insight and judgment normal. Data Data Last Documented VS Orders Orders Electrocardiogram (09/03/17 10:28) Ckmb (Isoenzyme) Profile (09/03/17 10:28) Complete Blood Count With Diff (09/03/17 10:28) Comprehensive Metabolic Panel (09/03/17 10:28) Magnesium (Mg) (09/03/17 10:28) Prothrombin Time / Inr (Pt) (09/03/17 10:28) Act Partial Throm Time (Ptt) (09/03/17 10:28) Troponin I (09/03/17 10:28) Ecg Monitoring (09/03/17 10:28) Iv Access Insert/Monitor (09/03/17 10:28) Oximetry (09/03/17 10:28) Oxygen Administration (09/03/17 10:28) Sodium Chloride 0.9% Flush (Ns Flush) (09/03/17 10:30) Admit Order (Ed Use Only) (09/03/17 ) Labs Laboratory Tests Test 09/03/17 10:35 White Blood Count 8.9 TH/MM3 Red Blood Count 3.25 MIL/MM3 Hemoglobin 10.5 GM/DL Hematocrit 31.6 % Mean Corpuscular Volume 97.1 FL Mean Corpuscular Hemoglobin 32.4 PG Mean Corpuscular Hemoglobin Concent 33.3 % Red Cell Distribution Width 15.8 % Platelet Count 227 TH/MM3 Mean Platelet Volume 9.2 FL Neutrophils (%) (Auto) 64.9 % Lymphocytes (%) (Auto) 20.5 % Monocytes (%) (Auto) 8.9 % Eosinophils (%) (Auto) 5.2 % Basophils (%) (Auto) 0.5 % Neutrophils # (Auto) 5.8 TH/MM3 Lymphocytes # (Auto) 1.8 TH/MM3 Monocytes # (Auto) 0.8 TH/MM3 Eosinophils # (Auto) 0.5 TH/MM3 Basophils # (Auto) 0.0 TH/MM3 CBC Comment DIFF FINAL Differential Comment Prothrombin Time 10.9 SEC Prothromb Time International Ratio 1.0 RATIO Activated Partial Thromboplast Time 25.9 SEC Blood Urea Nitrogen 33 MG/DL Creatinine 5.65 MG/DL Random Glucose 132 MG/DL Total Protein 7.4 GM/DL Albumin 3.1 GM/DL Calcium Level 7.4 MG/DL Magnesium Level 2.0 MG/DL Alkaline Phosphatase 288 U/L Aspartate Amino Transf (AST/SGOT) 16 U/L Alanine Aminotransferase (ALT/SGPT) 13 U/L Total Bilirubin 0.4 MG/DL Sodium Level 141 MEQ/L Potassium Level 3.4 MEQ/L Chloride Level 104 MEQ/L Carbon Dioxide Level 28.3 MEQ/L Anion Gap 9 MEQ/L Estimat Glomerular Filtration Rate 9 ML/MIN Protein Corrected Calcium 7.3 MG/DL Total Creatine Kinase 85 U/L Troponin I LESS THAN 0.02 NG/ML MDM Medical Decision Making Medical Screen Exam Complete: Yes Emergency Medical Condition: Yes Differential Diagnosis ACS, AMI, chest pain, shortness of breath, musculoskeletal pain. Narrative Course Patient roomed in emergency department, initial workup including cardiac markers and EKG were reassuring. Initial plan was for admission to the chest pain center even though she is atypical, PA for the chest pain center did note that the patient had a nuclear stress test just a few months ago which showed no reversible defects. This was conveyed to the patient repeat troponin was checked on her at this point I think she can follow-up with her nremt and renal officer. She is comfortable with this plan, her significant other take home. Incidental note of mild hypocalcemia his left uncorrected given a dialysis patient. Believe further management to her dialysis officer. Diagnosis Primary Impression: Atypical chest pain Admitting Information Admitting Physician Requests: Observation Additional Instructions: Follow up with your regular doctor and your nremt. Disposition: 01 DISCHARGE HOME Condition: Stable Daren Kim MD Sep 03, 2017 11:01
[2017-09-03 11:04] LABS: AUTOMATED NEUTROPHIL # 5.8 TH/MM3 (1.8-7.7); BASOPHIL % 0.5 % (0.0-2.0); EOSINOPHIL # 0.5 TH/MM3 (0-0.4); EOSINOPHIL % 5.2 % (0.0-4.0); HEMATOCRIT 31.6 % (35.0-46.0); HEMO FLAGS DIFF FINAL; LYMPH % 20.5 % (9.0-44.0); LYMPHOCYTE # 1.8 TH/MM3 (1.0-4.8); MEAN CELL VOLUME 97.1 FL (80.0-100.0); MEAN CORPUSCULAR HEMOGLOBIN 32.4 PG (27.0-34.0); MEAN CORPUSCULAR HGB CONC 33.3 % (32.0-36.0); MONO % 8.9 % (0.0-8.0); NEUT % 64.9 % (16.0-70.0); PLATELET COUNT 227 TH/MM3 (150-450); RED BLOOD COUNT 3.25 MIL/MM3 (4.00-5.30); RED CELL DISTRIBUTION WIDTH 15.8 % (11.6-17.2); WHITE BLOOD COUNT 8.9 TH/MM3 (4.0-11.0)
[2017-09-03] MEDS ORDERED: ADVA250A INH (11:07)
[2017-09-03] MEDS ORDERED: SENN1TAB PO (11:07)
[2017-09-03] MEDS ORDERED: DIPH50CA PO (11:07)
[2017-09-03] MEDS ORDERED: MIDO10TA PO (11:07)
[2017-09-03] MEDS ORDERED: FURO1TAB61 PO (11:07)
[2017-09-03] MEDS ORDERED: CARA1TAB6 PO (11:07)
[2017-09-03] MEDS ORDERED: SEVEL800 PO (11:07)
[2017-09-03] MEDS ORDERED: PLAV75TA29 PO (11:07)
[2017-09-03] MEDS ORDERED: LEVE500 PO (11:07)
[2017-09-03] MEDS ORDERED: TRAM50TA PO (11:07)
[2017-09-03] MEDS ORDERED: DULC5TAB PO (11:07)
[2017-09-03] MEDS ORDERED: B CO PO (11:07)
[2017-09-03] MEDS ORDERED: COUM5TAB PO (11:07)
[2017-09-03] MEDS ORDERED: PROT40TA PO (11:07)
[2017-09-03] MEDS ORDERED: LIPI10TA PO (11:07)
[2017-09-03] MEDS ORDERED: ALLO100T PO (11:07)
[2017-09-03 11:19] LABS: APTT (PATIENT) 25.9 SEC (24.3-30.1); PROTHROMBIN TIME - PATIENT 10.9 SEC (9.8-11.6)
[2017-09-03 11:29] LABS: ANION GAP 9 MEQ/L (5-15)
[2017-09-03 11:33] LABS: ALKALINE PHOSPHATASE 288 U/L (45-117); ALT (GPT) 13 U/L (10-53); AST (GOT) 16 U/L (15-37); BICARBONATE 28.3 MEQ/L (21.0-32.0); BLOOD UREA NITROGEN 33 MG/DL (7-18); CHLORIDE 104 MEQ/L (98-107); GLOMERULAR FILTRATION RATE 9 ML/MIN (>89); POTASSIUM 3.4 MEQ/L (3.5-5.1); SODIUM (NA) 141 MEQ/L (136-145); TOTAL BILIRUBIN ADULT 0.4 MG/DL (0.2-1.0)
[2017-09-03 11:34] LABS: CREATINE KINASE 85 U/L (26-192)
[2017-09-03 11:37] LABS: CALCIUM-PROTEIN CORRECTED 7.3 MG/DL (8.5-10.1)
[2017-09-03 12:30] VITALS: BP 164/72; PULSE 79; RESP 19; O2SAT 100
[2017-09-03] MEDS ORDERED: ASPIRIN 81 MG CHEW TAB CHEW ONE (12:45)
--- NOTE | 2017-09-03 14:23 | RADRPT ---
EXAM DATE/TIME: 09/03/2017 13:08 [facility] COMPARISON: CHEST SINGLE AP, June 18, 2017, 9:49. INDICATIONS : Chest pain and shortness of breath. MEDICAL HISTORY : Hypercholesterolemia. Hypertension Diabetes SURGICAL HISTORY : Appendectomy. section. ENCOUNTER: Initial ACUITY: 1 day PAIN SCORE: Non-responsive. LOCATION: Bilateral chest FINDINGS: There is cardiomegaly. The lungs are clear. The osseous structures are intact. CONCLUSION: 1. Cardiomegaly. Ramy Rogers MD on September 03, 2017 at 14:20 Board Certified Radiologist. This report was verified electronically.
--- NOTE | 2017-09-03 18:18 | EKG ---
Date Performed: 09/03/2017 Time Performed: 10:28:37 PTAGE: 56 years EKG: Sinus rhythm MARKED LEFT AXIS DEVIATION NONSPECIFIC T-WAVE ABNORMALITY ABNORMAL ECG PREVIOUS TRACING : 06/18/2017 23.16 Compared to the previous tracing T wave changes more promin ent DOCTOR: Clarence Mata Interpretating Date/Time 09/03/2017 18:17:02
== END 2017-09-03 14:51 | disposition home or self-care (01) ==
LOC: NEPE 10:05 → UNDOADMOB 12:38 → NEPFCDU 12:38 → NEDA 12:38 → NEPFCDU 12:44 → UNDODISOB 14:51
PROVIDERS: ADMIT Internal Medicine Interventional Cardiology; ATTEND Internal Medicine Interventional Cardiology
DX: R07.89 Other chest pain (principal); I12.0 Hypertensive chronic kidney disease with stage 5 chronic kidney disease or end stage renal disease; E11.22 Type 2 diabetes mellitus with diabetic chronic kidney disease; N18.6 End stage renal disease; D63.8 Anemia in other chronic diseases classified elsewhere; E83.51 Hypocalcemia; E78.00 Pure hypercholesterolemia, unspecified; F41.9 Anxiety disorder, unspecified; F32.9 Major depressive disorder, single episode, unspecified; M19.90 Unspecified osteoarthritis, unspecified site; Z99.2 Dependence on renal dialysis; Z86.73 Personal history of transient ischemic attack (TIA), and cerebral infarction without residual deficits
CPT/HCPCS: 71010; 80053; 82550; 83735; 84484; 85025; 85610; 85730; 93005; 99285; G0378

== ENCOUNTER 2017-09-15 07:24 | Emergency (ER) | payer MEDICARE, MEDICAID ==
[~2017-09-15 07:24] MED LIST changes: -ACET325T15 PO; +ADVA250A INH; +ALLO100T PO; +B CO PO; +CARA1TAB6 PO; +COUM5TAB PO; +DIPH50CA PO; +DULC5TAB PO; -ESOM1CAP16 PO; +FURO1TAB61 PO; +LEVE500 PO; +LIPI10TA PO; -METO5TAB PO; +MIDO10TA PO; +PLAV75TA29 PO; -PRAV80TA PO; +PROT40TA PO; -SCOP1PAT2 T-DERMAL; -SENS60TA PO; +SEVEL800 PO; -SUCR1S PO; +TRAM50TA PO
[2017-09-15] MEDS ORDERED: SODIUM CHLORIDE 0.9% FLUSH 10 ML FLUSH IVF PRN (07:45)
--- NOTE | 2017-09-15 07:45 | PD ---
HPI Chief Complaint: Chest Pain Time Seen by Provider: 07:31 Travel History International Travel<30 days: No Contact w/Intl Traveler<30days: No Traveled to known affect area: No History of Present Illness HPI 56-year-old female with history of diabetes mellitus, renal failure dialysis dependent, hypertension, diabetes mellitus, previous traumatic brain injury who presents today with from dialysis center with complaints of substernal chest pain. The patient reports it as dull in the middle of her chest. She reports mild headache as well. The patient denies any diaphoresis. She does report shortness of breath. Please note the patient keeps repeating the word "k" however is able to answer questions. She states her last dialysis was Friday. She did not get dialysis today. She was not given an aspirin via EMS because she is on Coumadin. Patient also was given one nitroglycerin before EMS arrived however her blood pressure dropped into the 90s systolic. The patient presents here with tachycardia. No obvious ST elevation noted on her 12-lead EKG. PFSH Past Medical History Anemia: Yes Arthritis: Yes Asthma: No Autoimmune Disease: No Blood Disorders: Yes (anemia of chronic disease) Anxiety: Yes Depression: Yes Heart Rhythm Problems: No Cancer: No Cardiac Catheterization: No Cardiovascular Problems: Yes High Cholesterol: Yes Chemotherapy: No Chest Pain: Yes Congestive Heart Failure: No COPD: No Cerebrovascular Accident: No Diabetes: Yes (TYPE II ) Patient Takes Glucophage: No Dialysis: Yes ([facility] FRI/FRI/FRI LAST WENT 04/25/17) Diminished Hearing: No Endocrine: No Gastrointestinal Disorders: No GERD: No Glaucoma: No Genitourinary: Yes Headaches: Yes Hepatitis: No Hiatal Hernia: No Heparin Induced Thrombocytopen: No Hypertension: Yes Immune Disorder: No Implanted Vascular Access Dvce: Yes (L UPPER ARM AVF) Musculoskeletal: No Neurologic: No Psychiatric: Yes Respiratory: No Migraines: No Radiation Therapy: No Renal Failure: Yes Seizures: No Sickle Cell Disease: No Sleep Apnea: No Thyroid Disease: No Ulcer: No PNEUMOCCOCAL Vaccine (Year): 2 Menopausal: Yes : 2 Para: 1 Miscarriage: 1 : 0 Past Surgical History Abdominal Surgery: Yes (appendectomy) AICD: No Appendectomy: Yes Arteriovenous Shunt: No Body Medical Devices: left AV fistula Cardiac Surgery: No Section: Yes Coronary Artery Bypass Graft: Yes Ear Surgery: No Endocrine Surgery: No Eye Surgery: Yes (bilateral cataracts removal) Genitourinary Surgery: No Gynecologic Surgery: No Insulin Pump: No Joint Replacement: No Oral Surgery: No Pacemaker: No Thoracic Surgery: No Other Surgery: Yes (LEFT ARM SHUNT PLACEMENT) Social History Alcohol Use: No Tobacco Use: No Substance Use: No Allergies-Medications (Allergen,Severity, Reaction): Coded Allergies: acetaminophen (Unverified Allergy, Severe, VOMITING, 06/18/17) linezolid (Unverified Allergy, Severe, VOMITING, 06/18/17) piperacillin (Unverified Allergy, Severe, VOMITING, 06/18/17) simvastatin (Unverified Allergy, Severe, VOMITING, 06/18/17) tazobactam (Unverified Allergy, Severe, VOMITING, 06/18/17) oxycodone (Unverified Adverse Reaction, Severe, VOMITING, 06/18/17) Reported Meds & Prescriptions Reported Meds & Active Scripts Active Labetalol (Labetalol HCl) 100 Mg Tab 50 Mg PO BID 30 Days check BP prior to taking hold for SBP < 130 and recheck after an hour Levemir Inj (Insulin Detemir) 1,000 unit/ 10 ML Vial 10 Units SQ HS 30 Days check blood sugar prior to taking Dmbvwkqluu-Dvqeqkxjhictr-Gnkfskvc 50-325-40 Mg Tab 1 Tab PO Q6H PRN Norvasc (Amlodipine Besylate) 5 Mg Tab 5 Mg PO DAILY [address] (Duloxetine HCl) 20 Mg Capdr 20 Mg PO DAILY Combigan Opth Drops (Brimonidine-Timolol Opth Drops) 0.2-0.5% Soln 1 Drop EACH EYE Q12HR 14 Days Reported Coumadin (Warfarin) 5 Mg Tab 5 Mg PO DAILY Tramadol (Tramadol HCl) 50 Mg Tab 50 Mg PO Q4H PRN Carafate (Sucralfate) 1 Gram Tab 1 Gm PO TID On empty stomach (7am,11am and 4pm) Senna-Plus (Sennosides-Docusate Sodium) 8.6-50 Mg Tab 1 Tab PO DAILY Renvela (Sevelamer Carbonate) 800 Mg Tab 2,400 Mg PO TID Take 3 tabs (2,400mg) three times a day with meals & 1 tab (800mg) with snacks Renal Vitamin (B-Complex W/ C & Folic Acid) 1 Tab 1 Tab PO DAILY Protonix (Pantoprazole Sodium) 40 Mg Tab 40 Mg PO DAILY Midodrine 10 Mg Tab 10 Mg PO TID Keppra (Levetiracetam) 500 Mg Tab 1,000 Mg PO TID Lasix (Furosemide) 80 Mg Tab 80 Mg PO DAILY Diphenhydramine HCl 50 Mg Cap 50 Mg PO TID PRN Plavix (Clopidogrel Bisulfate) 75 Mg Tab 75 Mg PO DAILY Dulcolax DR (Bisacodyl) 5 Mg Tabdr 5 Mg PO BID Lipitor (Atorvastatin Calcium) 10 Mg Tab 10 Mg PO HS Allopurinol 100 Mg Tab 100 Mg PO DAILY Advair Diskus Inh (Fluticasone-Salmeterol Inh) 250-50 Mcg/Blist Aer 1 Puff INH BID Rinse mouth after use. Review of Systems Except as stated in HPI: all other systems reviewed are Neg General / Constitutional: No: Fever, Chills HENT: Positive: Headaches, No: Lightheadedness, Neck Pain Cardiovascular: Positive: Chest Pain or Discomfort, Tachycardia, No: Palpitations Respiratory: Positive: Shortness of Breath, No: Cough Gastrointestinal: No: Nausea, Vomiting, Abdominal Pain Musculoskeletal: No: Weakness, Pain Neurologic: Positive: Headache, No: Weakness, Dizziness, Change in Mentation ( no new) Physical Exam Narrative GENERAL: Well-developed well-nourished female in no acute respiratory distress. SKIN: Focused skin assessment warm/dry. HEAD: Atraumatic. Normocephalic. EYES: No scleral icterus. No injection or drainage. ENT: No nasal bleeding or discharge. Mucous membranes pink and moist. NECK: Trachea midline. No JVD. CARDIOVASCULAR: Sinus tach with a rate of 118. No murmur appreciated. If you push on the patient's sternal, she states that it hurts and that's the pain that she is experiencing. RESPIRATORY: No accessory muscle use. Clear to auscultation. Breath sounds equal bilaterally. GASTROINTESTINAL: Abdomen soft, non-tender, nondistended. MUSCULOSKELETAL: No obvious deformities. No clubbing. No cyanosis. No edema. NEUROLOGICAL: Awake and alert. No obvious cranial nerve deficits. Motor grossly within normal limits. Normal speech. Data Data Last Documented VS Vital Signs Date Time Temp Pulse Resp B/P (MAP) Pulse Ox O2 Delivery O2 Flow Rate FiO2 11/27/17 11:25 116 16 125/74 (91) 100 09/15/17 08:00 100 Orders Orders Basic Metabolic Panel (Bmp) (09/15/17 07:36) Ckmb (Isoenzyme) Profile (09/15/17 07:36) Complete Blood Count With Diff (09/15/17 07:36) Magnesium (Mg) (09/15/17 07:36) Prothrombin Time / Inr (Pt) (09/15/17 07:36) Act Partial Throm Time (Ptt) (09/15/17 07:36) Troponin I (09/15/17 07:36) Chest, Single Ap (09/15/17 07:36) Ecg Monitoring (09/15/17 07:36) Bilateral Bp Monitoring (09/15/17 07:36) Iv Access Insert/Monitor (09/15/17 07:36) Oximetry (09/15/17 07:36) Oxygen Administration (09/15/17 07:36) Sodium Chloride 0.9% Flush (Ns Flush) (09/15/17 07:45) Ct Brain W/O Iv Contrast(Rout) (09/15/17 07:36) Electrocardiogram (09/15/17 10:20) Ckmb (Isoenzyme) Profile (09/15/17 10:20) Troponin I (09/15/17 10:20) Labs Laboratory Tests Test 09/15/17 08:30 09/15/17 10:28 White Blood Count 8.7 TH/MM3 Red Blood Count 3.11 MIL/MM3 Hemoglobin 10.6 GM/DL Hematocrit 30.7 % Mean Corpuscular Volume 98.8 FL Mean Corpuscular Hemoglobin 34.0 PG Mean Corpuscular Hemoglobin Concent 34.4 % Red Cell Distribution Width 16.9 % Platelet Count 217 TH/MM3 Mean Platelet Volume 9.5 FL Neutrophils (%) (Auto) 63.9 % Lymphocytes (%) (Auto) 22.2 % Monocytes (%) (Auto) 9.1 % Eosinophils (%) (Auto) 4.0 % Basophils (%) (Auto) 0.8 % Neutrophils # (Auto) 5.6 TH/MM3 Lymphocytes # (Auto) 1.9 TH/MM3 Monocytes # (Auto) 0.8 TH/MM3 Eosinophils # (Auto) 0.4 TH/MM3 Basophils # (Auto) 0.1 TH/MM3 CBC Comment DIFF FINAL Differential Comment Prothrombin Time 11.5 SEC Prothromb Time International Ratio 1.0 RATIO Activated Partial Thromboplast Time 27.6 SEC Blood Urea Nitrogen 67 MG/DL Creatinine 13.01 MG/DL Random Glucose 145 MG/DL Calcium Level 7.7 MG/DL Magnesium Level 2.1 MG/DL Sodium Level 135 MEQ/L Potassium Level 5.2 MEQ/L Chloride Level 96 MEQ/L Carbon Dioxide Level 27.3 MEQ/L Anion Gap 12 MEQ/L Estimat Glomerular Filtration Rate 4 ML/MIN Total Creatine Kinase 89 U/L 89 U/L Troponin I LESS THAN 0.02 NG/ML LESS THAN 0.02 NG/ML MDM Medical Decision Making Medical Screen Exam Complete: Yes Emergency Medical Condition: Yes Differential Diagnosis ACS versus musculoskeletal pain versus GERD versus intracranial injury Narrative Course 56-year-old female history of renal failure, dialysis dependent who comes in today with complaints of chest pain. The patient's at dialysis when she had the pain. The pain is reproducible. EKG and cardiac enzymes are within normal limits. I sent off a second 3 hours later which are also normal. The patient needs emergent dialysis. The case was discussed with Dr. Suggs, laborer [place] who is arranged for the patient to have dialysis at 3 PM. We will discharge the patient and she will get her dialysis. She is instructed to follow up with her primary care physician. Diagnosis Primary Impression: Atypical chest pain Additional Impressions: renal failure/dialysis dependent HTN (hypertension) Additional Instructions: You have an appointment at 3 PM to have dialysis. Return as needed. Follow up with her primary care physician. Disposition: 01 DISCHARGE HOME Condition: Stable Shahzad Bradford MD Sep 15, 2017 07:45
[2017-09-15 08:00] VITALS: BP 117/75; PULSE 116; RESP 16; O2SAT 100
--- NOTE | 2017-09-15 08:28 | RADRPT ---
EXAM DATE/TIME: 09/15/2017 08:10 [facility] COMPARISON: CT ABDOMEN & PELVIS W/O CONTRAST, June 18, 2017, 12:01. INDICATIONS : Headache RADIATION DOSE: 41.25 CTDIvol (mGy) MEDICAL HISTORY : Cardiovascular disease. Hypertension. Diabetes mellitus type 2. SURGICAL HISTORY : Appendectomy. ENCOUNTER: Initial ACUITY: 1 day PAIN SCALE: 5/10 LOCATION: cranial TECHNIQUE: Multiple contiguous axial images were obtained of the head. Using automated exposure control and adj ustment of the mA and/or kV according to patient size, radiation dose was kept as low as reasonably a chievable to obtain optimal diagnostic quality images. DICOM format image data is available electro nically for review and comparison. FINDINGS: CEREBRUM: The ventricles are normal for age. No evidence of midline shift, mass lesion, hemorrhage or acute in farction. No extra-axial fluid collections are seen. POSTERIOR FOSSA: The cerebellum and brainstem are intact. The 4th ventricle is midline. The cerebellopontine angle i s unremarkable. EXTRACRANIAL: The visualized portion of the orbits is intact. SKULL: The calvaria is intact. No evidence of skull fracture. CONCLUSION: 1. No acute intracranial abnormality. Rmay Rogers MD on September 15, 2017 at 8:24 Board Certified Radiologist. This report was verified electronically.
--- NOTE | 2017-09-15 08:31 | RADRPT ---
EXAM DATE/TIME: 09/15/2017 08:00 [facility] COMPARISON: CHEST SINGLE AP, September 03, 2017, 13:08. INDICATIONS : Chest pain, short of breath MEDICAL HISTORY : Hypertension. diabetes SURGICAL HISTORY : Appendectomy. section. ENCOUNTER: Initial ACUITY: 1 day PAIN SCORE: Non-responsive. LOCATION: Bilateral chest FINDINGS: The heart is at the upper limits of normal in size. The mediastinal contours are within normal limits . The lungs are clear. There is no overt congestive failure. The osseous structures are intact. The e xam is stable compared to previous date 09/03/17. CONCLUSION: 1. No acute abnormality. Stable compared to previous. Ramy Rogers MD on September 15, 2017 at 8:28 Board Certified Radiologist. This report was verified electronically.
[2017-09-15 08:52] LABS: AUTOMATED NEUTROPHIL # 5.6 TH/MM3 (1.8-7.7); BASOPHIL # 0.1 TH/MM3 (0-0.2); BASOPHIL % 0.8 % (0.0-2.0); EOSINOPHIL # 0.4 TH/MM3 (0-0.4); HEMATOCRIT 30.7 % (35.0-46.0); HEMO FLAGS DIFF FINAL; LYMPH % 22.2 % (9.0-44.0); LYMPHOCYTE # 1.9 TH/MM3 (1.0-4.8); MEAN CELL VOLUME 98.8 FL (80.0-100.0); MEAN CORPUSCULAR HGB CONC 34.4 % (32.0-36.0); MONO % 9.1 % (0.0-8.0); NEUT % 63.9 % (16.0-70.0); PLATELET COUNT 217 TH/MM3 (150-450); RED BLOOD COUNT 3.11 MIL/MM3 (4.00-5.30); RED CELL DISTRIBUTION WIDTH 16.9 % (11.6-17.2); WHITE BLOOD COUNT 8.7 TH/MM3 (4.0-11.0)
[2017-09-15 09:01] LABS: ANION GAP 12 MEQ/L (5-15); APTT (PATIENT) 27.6 SEC (24.3-30.1); BICARBONATE 27.3 MEQ/L (21.0-32.0); BLOOD UREA NITROGEN 67 MG/DL (7-18); CHLORIDE 96 MEQ/L (98-107); GLOMERULAR FILTRATION RATE 4 ML/MIN (>89); MAGNESIUM 2.1 MG/DL (1.5-2.5); POTASSIUM 5.2 MEQ/L (3.5-5.1); PROTHROMBIN TIME - PATIENT 11.5 SEC (9.8-11.6); SODIUM (NA) 135 MEQ/L (136-145)
[2017-09-15 09:13] LABS: CREATINE KINASE 89 U/L (26-192)
[2017-09-15 09:43] VITALS: BP 110/75; PULSE 120; RESP 16; O2SAT 100
[2017-09-15 11:14] LABS: CREATINE KINASE 89 U/L (26-192)
[2017-09-15 11:25] VITALS: BP 125/74; PULSE 116; RESP 16; O2SAT 100
--- NOTE | 2017-09-15 12:08 | EKG ---
Date Performed: 09/15/2017 Time Performed: 07:30:55 PTAGE: 56 years EKG: SINUS TACHYCARDIA WITH FIRST DEGREE AV BLOCK LEFT AXIS DEVIATION NONSPECIFIC T-WAVE ABNORMA LITY POOR R WAVE PROGRESSION ABNORMAL ECG PREVIOUS TRACING : 09/03/2017 10.28 Compared to previous tracing, heart rate has increased, lat eral T wave inversion is no longer evident. DOCTOR: Tyson Stephenson Interpretating Date/Time 09/15/2017 12:08:19
--- NOTE | 2017-09-16 17:43 | EKG ---
Date Performed: 09/15/2017 Time Performed: 11:27:44 PTAGE: 56 years EKG: SINUS TACHYCARDIA WITH FIRST DEGREE AV BLOCK POSSIBLE LEFT ATRIAL ENLARGEMENT MARKED LEFT A XIS DEVIATION NONSPECIFIC T-WAVE ABNORMALITY Since previous tracing, no significant change noted ABNO RMAL ECG PREVIOUS TRACING : 09/15/2017 07.30 DOCTOR: Elissa Forman Interpretating Date/Time 09/16/2017 17:42:16
== END 2017-09-15 14:16 | disposition home or self-care (01) ==
LOC: NEPE 07:24
DX: R07.89 Other chest pain (principal); R51 Headache; R06.02 Shortness of breath; R00.0 Tachycardia, unspecified; I44.0 Atrioventricular block, first degree; R94.31 Abnormal electrocardiogram [ECG] [EKG]; I12.9 Hypertensive chronic kidney disease with stage 1 through stage 4 chronic kidney disease, or unspecified chronic kidney disease; E11.22 Type 2 diabetes mellitus with diabetic chronic kidney disease; N18.9 Chronic kidney disease, unspecified
CPT/HCPCS: 70450; 71010; 80048; 82550; 83735; 84484; 85025; 85610; 85730; 93005

== ENCOUNTER → 2017-10-28 | Outpatient (CLI) | payer MEDICARE, MEDICAID ==
[~2017-10-28] VITALS: Ht 170.2 cm; Wt 94.9 kg
[~2017-10-28] MED LIST changes: +CHLORHEXIDINE GLUCONATE 2 % 1 PACK (2 CLOTHS) TOPICAL PRN; -COUM5TAB PO; +DEXTROSE 5%-LACTATED RING INJ 1,000 ML IV SCH; +LACTATED RINGER'S 1000 ML IV PRN; +METOPROLOL TARTRATE 25 MG TAB PO PRN; +POVIDONE IODINE 5% (ANTISEPSIS KIT) 4 APPLICATIONS EACH NARE PRN; +PROPOFOL 200 MG/20 ML AMP IV ONE; +SODIUM CHLORID 0.9% 500 ML IV PRN
[2017-10-28 10:37] LABS: AUTOMATED NEUTROPHIL # 3.3 TH/MM3 (1.8-7.7); BASOPHIL % 0.7 % (0.0-2.0); EOSINOPHIL # 0.2 TH/MM3 (0-0.4); EOSINOPHIL % 3.6 % (0.0-4.0); HEMATOCRIT 27.4 % (35.0-46.0); HEMOGLOBIN 9.4 GM/DL (11.6-15.3); LYMPH % 24.7 % (9.0-44.0); LYMPHOCYTE # 1.4 TH/MM3 (1.0-4.8); MEAN CELL VOLUME 97.3 FL (80.0-100.0); MEAN CORPUSCULAR HEMOGLOBIN 33.2 PG (27.0-34.0); MEAN CORPUSCULAR HGB CONC 34.1 % (32.0-36.0); MEAN PLATELET VOLUME 8.7 FL (7.0-11.0); MONO % 10.6 % (0.0-8.0); MONOCYTE # 0.6 TH/MM3 (0-0.9); NEUT % 60.4 % (16.0-70.0); PLATELET COUNT 224 TH/MM3 (150-450); RED BLOOD COUNT 2.82 MIL/MM3 (4.00-5.30); RED CELL DISTRIBUTION WIDTH 16.2 % (11.6-17.2); WHITE BLOOD COUNT 5.5 TH/MM3 (4.0-11.0)
--- NOTE | 2017-10-28 12:47 | GIPROC ---
[facility] [address] [facility] [place], [address] EGD PROCEDURE REPORT EXAM DATE: 10/28/2017 PATIENT NAME: Mariza Lovell MR #: [id number] BIRTHDATE: 1960 ATTENDING: Soraya Delgado MD ORDER #: [id number] SUPPORT SERVICES SPECIALIST: Myesha Rose Wilcox-Hassen, Alice, and Cristal Villareal STATUS: outpatient INDICATIONS: The patient is a 56 yr old female here for an EGD due to anemia, history of duodenal and gastric ulcers PROCEDURE PERFORMED: EGD w/ biopsy MEDICATIONS: None and Per Anesthesia. TOPICAL ANESTHETIC: none CONSENT: The patient understands the risks and benefits of the procedure and understands that these risks include, but are not limited to: sedation, allergic reaction, infection, perforation and/or bleeding. Alternative means of evaluation and treatment include, among others: physical exam, x-rays, and/or surgical intervention. The patient elects to proceed with this endoscopic procedure. medical equipment was checked for proper function. Hand hygiene and appropriate measures for infection prevention was taken. After the risks, benefits and alternatives of the procedure were thoroughly explained, Informed consent was verified, confirmed and timeout was successfully executed by the treatment team. The patient was anesthetized with topical anesthesia and the EC-[id number] (Pedi C) endoscope was introduced through the mouth and advanced to the second portion of the duodenum. Retroflexed views revealed a hiatal hernia The gastroscope was then slowly withdrawn and removed. Duodenitis second portion-biopsy gastritis antrum-biopsy esophagitis distal esophagus-biopsy. ADVERSE EVENTS: There were no complications. IMPRESSIONS: 1. Duodenitis second portion-biopsy gastritis antrum-biopsy esophagitis distal esophagus-biopsy 2. Retroflexed views revealed a hiatal hernia RECOMMENDATIONS: 1. Await biopsy results. Biopsy results will not be ready for 7-10 days. If you don't hear from us in two weeks, call our office for biopsy results. 2. Anti-reflux regimen 3. Continue PPI 4. Avoid NSAIDS PATIENT CONDITION: stable DISPOSITION: Home REPEAT EXAM: Return 3 years EGD Soraya Delgado MD eSigned: Soraya Delgado MD 10/28/2017 12:46 PM cc:
--- NOTE | 2017-10-28 12:49 | GIPROC ---
[facility] [address] [facility]. [facility], [address] COLONOSCOPY PROCEDURE REPORT EXAM DATE: 10/28/2017 PATIENT NAME: Mariza Lovell MR #: [id number] BIRTHDATE: 1960 ENDOSCOPIST: Soraya Delgado MD ORDER #: [id number] GAUGER CHIEF: Myesha Rose Wilcox-Hassen, Alice, and Cristal Villareal STATUS: outpatient INDICATIONS: The patient is a 56 yr old female here for a colonoscopy due to anemia PROCEDURE PERFORMED: Colonoscopy with polypectomy MEDICATIONS: None and Per Anesthesia. PREP QUALITY: 20 % obscured ESTIMATED BLOOD LOSS: None CONSENT: The patient understands the risks and benefits of the procedure and understands that these risks include, but are not limited to: sedation, allergic reaction, infection, perforation and/or bleeding. Alternative means of evaluation and treatment include, among others: physical exam, x-rays, and/or surgical intervention. The patient elects to proceed with this endoscopic procedure. medical equipment was checked for proper function. Hand hygiene and appropriate measures for infection prevention was taken. After the risks, benefits and alternatives of the procedure were thoroughly explained, Informed consent was verified, confirmed and timeout was successfully executed by the treatment team. A digital exam revealed external hemorrhoids The Pentax EC-[id number] endoscope was introduced through the anus and advanced to the cecum, which was identified by both the appendix and ileocecal valve. The instrument was then slowly withdrawn as the colon was fully examined. COLON FINDINGS: Polyp sessile-1.5 cm in ascending colon-hot snare polypectomy with cautery of base, piecmeal polypectomy done. Retroflexed views revealed internal hemorrhoids and Retroflexed views revealed small internal hemorrhoids The scope was then completely withdrawn from the patient and the procedure terminated. PROCEDURE WITHDRAWAL TIME:11minutes ADVERSE EVENTS: There were no complications. IMPRESSIONS: 1. Polyp sessile-1.5 cm in ascending colon-hot snare polypectomy with cautery of base, piecmeal polypectomy done 2. Retroflexed views revealed internal hemorrhoids 3. Retroflexed views revealed small internal hemorrhoids 4. Revealed external hemorrhoids RECOMMENDATIONS: 1. Await biopsy results. Biopsy results will not be ready for 7-10 days. If you don't hear from us in two weeks, call our office for results. 2. Benefiber 2 tsp daily 3. Probiotics from any [employer] or health food store 4. Yearly rectal exams RECALL: Return 1 year Colonoscopy Soraya Delgado MD eSigned: Soraya Delgado MD 10/28/2017 12:48 PM cc: John Genao M.D.
[2017-10-28 13:20] VITALS: BP 150/69; PULSE 84; RESP 18; TEMP 97.2; O2SAT 95
--- NOTE | 2017-10-28 16:11 | EKG ---
Date Performed: 10/28/2017 Time Performed: 08:42:10 PTAGE: 56 years EKG: Sinus rhythm MARKED LEFT AXIS DEVIATION NONSPECIFIC T-WAVE ABNORMALITY PROLONGED QT INTERVAL ABNORMAL ECG PREVIOUS TRACING : 09/15/2017 11.27 Rate has slowed since prior tracing. DOCTOR: Ihsan Franklin Interpretating Date/Time 10/28/2017 16:10:29
== END ==
LOC: HSDC 07:57
PROVIDERS: ATTEND Internal Medicine Gastroenterology
DX: K29.50 Unspecified chronic gastritis without bleeding (principal); K44.9 Diaphragmatic hernia without obstruction or gangrene; K64.4 Residual hemorrhoidal skin tags; K64.8 Other hemorrhoids; D12.2 Benign neoplasm of ascending colon; D64.9 Anemia, unspecified; R94.31 Abnormal electrocardiogram [ECG] [EKG]; E11.22 Type 2 diabetes mellitus with diabetic chronic kidney disease; N18.6 End stage renal disease; Z99.2 Dependence on renal dialysis; Z87.11 Personal history of peptic ulcer disease
CPT/HCPCS: 84132; 85025; 88305; 88312; 93005

== ENCOUNTER 2017-11-09 12:08 | Inpatient (IN) | payer MEDICARE, MEDICAID ==
[2017-11-09] MEDS ORDERED: SODIUM CHLORIDE 0.9% FLUSH 10 ML FLUSH IVF (12:45)
[2017-11-09 12:56] LABS: AUTOMATED NEUTROPHIL # 4.5 TH/MM3 (1.8-7.7); BASOPHIL # 0.1 TH/MM3 (0-0.2); BASOPHIL % 1.2 % (0.0-2.0); EOSINOPHIL # 0.3 TH/MM3 (0-0.4); EOSINOPHIL % 3.9 % (0.0-4.0); HEMATOCRIT 24.4 % (35.0-46.0); HEMO FLAGS DIFF FINAL; HEMOGLOBIN 8.7 GM/DL (11.6-15.3); LYMPH % 28.3 % (9.0-44.0); LYMPHOCYTE # 2.1 TH/MM3 (1.0-4.8); MEAN CELL VOLUME 96.8 FL (80.0-100.0); MEAN CORPUSCULAR HEMOGLOBIN 34.6 PG (27.0-34.0); MEAN CORPUSCULAR HGB CONC 35.7 % (32.0-36.0); MONOCYTE # 0.5 TH/MM3 (0-0.9); NEUT % 59.6 % (16.0-70.0); PLATELET COUNT 291 TH/MM3 (150-450); RED BLOOD COUNT 2.52 MIL/MM3 (4.00-5.30); RED CELL DISTRIBUTION WIDTH 16.6 % (11.6-17.2); WHITE BLOOD COUNT 7.5 TH/MM3 (4.0-11.0)
[2017-11-09 13:03] LABS: APTT (PATIENT) 27.8 SEC (24.3-30.1); INTERNATIONAL NORMALIZED RATIO 1.1 RATIO; PROTHROMBIN TIME - PATIENT 11.1 SEC (9.8-11.6)
[2017-11-09] MEDS: PANTOPRAZOLE SODIUM 40 MG VIAL IVP (13:23)
[2017-11-09 13:29] LABS: ALBUMIN 3.4 GM/DL (3.4-5.0); ALKALINE PHOSPHATASE 239 U/L (45-117); ALT (GPT) 12 U/L (10-53); ANION GAP 8 MEQ/L (5-15); AST (GOT) 12 U/L (15-37); BICARBONATE 29.2 MEQ/L (21.0-32.0); BLOOD UREA NITROGEN 58 MG/DL (7-18); CALCIUM 7.4 MG/DL (8.5-10.1); CHLORIDE 99 MEQ/L (98-107); GLOMERULAR FILTRATION RATE 6 ML/MIN (>89); GLUCOSE,RANDOM 84 MG/DL (74-106); POTASSIUM 4.5 MEQ/L (3.5-5.1); SODIUM (NA) 136 MEQ/L (136-145); TOTAL BILIRUBIN ADULT 0.5 MG/DL (0.2-1.0); TOTAL PROTEIN 7.7 GM/DL (6.4-8.2)
[2017-11-09 13:32] LABS: CALCIUM-PROTEIN CORRECTED 7.2 MG/DL (8.5-10.1)
[2017-11-09] MEDS: ONDANSETRON HCL 4 MG/2 ML VIAL IV PUSH (15:45)
[2017-11-09] MEDS ORDERED: GLUCAGON 1 MG/ML VIAL OTHER (16:00)
[2017-11-09] MEDS ORDERED: diphenhydrAMINE HCL 50 MG CAP PO (16:00)
[2017-11-09] MEDS ORDERED: DEXTROSE 50% IN WATER 50 ML VIAL(D50) IV PUSH (16:00)
[2017-11-09] MEDS ORDERED: MORPHINE SULFATE 2 MG/ML INJ IM (16:00)
[2017-11-09] MEDS ORDERED: SODIUM CHLOR 0.9% 1000 ML INJ 1,000 ML IV (16:15)
[2017-11-09] MEDS: traMADol HCL 50 MG TAB PO (16:36)
[2017-11-09] MEDS: PANTOPRAZOLE SODIUM 40 MG VIAL IV PUSH (16:36)
[2017-11-09 16:39] LABS: LIPASE 127 U/L (73-393)
[2017-11-09 16:51] LABS: REVIEW FLAG FINAL
[2017-11-09 16:52] LABS: HEMOGLOBIN 6.9 GM/DL (11.6-15.3)
[2017-11-09 16:53] LABS: HEMATOCRIT 19.6 % (35.0-46.0)
[2017-11-09] MEDS: INSULIN ASPART SUPPLEMENTAL SCALE SQ ×2 (17:00→21:00)
[2017-11-09] MEDS: SODIUM CHLOR 0.9% 250 ML INJ 250 ML IV (17:15)
[2017-11-09] MEDS ORDERED: PANTOPRAZOLE INJ 80 MG in SODIUM CHLORIDE 0.9% INJ 100 ML IV (17:45)
[2017-11-09] MEDS: SEVELAMER CARBONATE 800 MG TAB PO (18:00)
[2017-11-09] MEDS: SUCRALFATE 1 GM TAB PO (18:21)
[2017-11-09] MEDS: levETIRAcetam 500 MG TAB PO (18:21)
[2017-11-09] MEDS: PEG (High)/E-LYTE SOLN 4000 ML BTL PO ×2 (18:22→23:54)
[2017-11-09] MEDS: CALCIUM CHLORIDE INJ 2 GM in SODIUM CHLORIDE 0.9% INJ 100 ML IV (18:33)
[2017-11-09] MEDS: PANTOPRAZOLE INJ 80 MG in SODIUM CHLORIDE 0.9% INJ 100 ML IV (18:34)
[2017-11-09 20:29] LABS: REVIEW FLAG FINAL
[2017-11-09 20:29] LABS: HEMOGLOBIN 8.8 GM/DL (11.6-15.3)
[2017-11-09 20:43] LABS: TROPONIN I LESS THAN 0.02 NG/ML (0.02-0.05)
[2017-11-09] MEDS ORDERED: NON-FORMULARY DRUG (Brimonidine-Timolol Opth Drops (Combigan Opth Drops) 1 DROP) EACH EYE (21:00)
[2017-11-09] MEDS: BISACODYL EC 5 MG TABEC PO (21:00)
[2017-11-09] MEDS ORDERED: PANTOPRAZOLE SODIUM 40 MG VIAL IV PUSH (21:00)
[2017-11-09 23:18] LABS: RBC COMMENT 1 1
[2017-11-09] MEDS: ATORVASTATIN 10 MG TAB PO (23:51)
[2017-11-09] MEDS: LABETALOL HCL 100 MG TAB PO (23:51)
[2017-11-09] MEDS: SODIUM CHLORIDE 0.9% FLUSH 10 ML FLUSH IV FLUSH (23:52)
[2017-11-10] MEDS: BRIMONIDINE TARTRATE 0.2% OPHT SOLN 5 ML BTL EACH EYE ×3 (00:04→20:05)
[2017-11-10] MEDS: BUDESONIDE-FORMOTEROL 160/4.5 MCG INHALER INH ×3 (00:04→20:05)
[2017-11-10] MEDS: TIMOLOL MALEATE 0.5% OPHT SOLN 5 ML BTL EACH EYE ×3 (00:05→20:05)
[2017-11-10] MEDS ORDERED: CHLORHEXIDINE GLUCONATE 2 % 1 PACK (2 CLOTHS)(extra cloths) TOPICAL (00:30)
[2017-11-10] MEDS: DESMOPRESSIN INJ 20 MCG in SODIUM CHLORIDE 0.9% INJ 50 ML IV (01:14)
[2017-11-10] MEDS ORDERED: LABETALOL HCL 100 MG/20 ML VIAL IV PUSH (01:15)
[2017-11-10] MEDS: SODIUM CHLOR 0.9% 1000 ML INJ 1,000 ML IV ×3 (01:59→19:20)
[2017-11-10 02:11] LABS: MRSA PCR SURVEILLANCE MRSA NOT DETECTED (NOT DETECT)
[2017-11-10] MEDS: CHLORHEXIDINE GLUCONATE 2 % 1 PACK (2 CLOTHS)(taper/protocol) TOPICAL (03:32)
[2017-11-10 05:11] LABS: AUTOMATED NEUTROPHIL # 6.7 TH/MM3 (1.8-7.7); BASOPHIL % 0.5 % (0.0-2.0); EOSINOPHIL # 0.2 TH/MM3 (0-0.4); EOSINOPHIL % 1.8 % (0.0-4.0); HEMATOCRIT 25.2 % (35.0-46.0); HEMO FLAGS DIFF FINAL; HEMOGLOBIN 8.8 GM/DL (11.6-15.3); LYMPH % 18.7 % (9.0-44.0); LYMPHOCYTE # 1.8 TH/MM3 (1.0-4.8); MEAN CELL VOLUME 92.4 FL (80.0-100.0); MEAN CORPUSCULAR HEMOGLOBIN 32.2 PG (27.0-34.0); MEAN CORPUSCULAR HGB CONC 34.9 % (32.0-36.0); MEAN PLATELET VOLUME 9.1 FL (7.0-11.0); MONOCYTE # 0.8 TH/MM3 (0-0.9); PLATELET COUNT 176 TH/MM3 (150-450); RED BLOOD COUNT 2.72 MIL/MM3 (4.00-5.30); RED CELL DISTRIBUTION WIDTH 16.8 % (11.6-17.2); WHITE BLOOD COUNT 9.4 TH/MM3 (4.0-11.0)
[2017-11-10 06:04] LABS: ANION GAP 10 MEQ/L (5-15); BICARBONATE 26.9 MEQ/L (21.0-32.0); BLOOD UREA NITROGEN 64 MG/DL (7-18); CALCIUM 8.5 MG/DL (8.5-10.1); CHLORIDE 103 MEQ/L (98-107); CREATININE 9.68 MG/DL (0.50-1.00); GLOMERULAR FILTRATION RATE 5 ML/MIN (>89); GLUCOSE,RANDOM 103 MG/DL (74-106); POTASSIUM 4.4 MEQ/L (3.5-5.1); SODIUM (NA) 140 MEQ/L (136-145)
[2017-11-10] MEDS: INSULIN ASPART SUPPLEMENTAL SCALE SQ ×4 (08:00→20:05)
[2017-11-10] MEDS ORDERED: SODIUM CHLOR 0.9% 1000 ML INJ 1,000 ML OTHER ×2 (08:40)
[2017-11-10] MEDS ORDERED: SODIUM CHLOR 0.9% 1000 ML INJ 1,000 ML IV (08:40)
[2017-11-10] MEDS ORDERED: HEPARIN SODIUM - IV 10,000 UNITS/10 ML VIAL (08:45)
[2017-11-10] MEDS ORDERED: SODIUM CHLORIDE 0.9% FLUSH 10 ML FLUSH IV FLUSH (08:45)
[2017-11-10] MEDS ORDERED: GENTAMICIN SULFATE 20 MG/2 ML VIAL OTHER (08:45)
[2017-11-10] MEDS ORDERED: NITROGLYCERIN 0.4 MG SL 25 TABS/BTL SL (08:45)
[2017-11-10] MEDS ORDERED: HEPARIN SODIUM - IV 10,000 UNITS/10 ML VIAL IV FLUSH (08:45)
[2017-11-10] MEDS ORDERED: diphenhydrAMINE HCL 25 MG CAP PO (08:45)
[2017-11-10] MEDS ORDERED: ONDANSETRON HCL 4 MG/2 ML VIAL IV PUSH (08:45)
[2017-11-10] MEDS ORDERED: cloNIDine HCL 0.1 MG TAB PO (08:45)
[2017-11-10] MEDS ORDERED: ACETAMINOPHEN 325 MG TAB PO (08:45)
[2017-11-10] MEDS ORDERED: MANNITOL 12.5 GM/50 ML VIAL IV (08:45)
[2017-11-10] MEDS ORDERED: ALBUMIN 25% INJ 100 ML IV (08:45)
[2017-11-10] MEDS: DULoxetine HCl DR 20 MG CAP PO (09:00)
[2017-11-10] MEDS ORDERED: DOCUSATE SODIUM 50 MG/SENNA 8.6 MG TAB PO (09:00)
[2017-11-10] MEDS ORDERED: amLODIPine BESYLATE 5 MG TAB PO (09:00)
[2017-11-10] MEDS: PANTOPRAZOLE INJ 80 MG in SODIUM CHLORIDE 0.9% INJ 100 ML IV ×2 (09:01→22:22)
[2017-11-10] MEDS: SODIUM CHLORIDE 0.9% FLUSH 10 ML FLUSH IV FLUSH ×2 (09:02→20:05)
[2017-11-10] MEDS: SEVELAMER CARBONATE 800 MG TAB PO ×3 (09:03→17:28)
[2017-11-10] MEDS: levETIRAcetam 500 MG TAB PO ×3 (09:03→17:28)
[2017-11-10 09:17] LABS: REVIEW FLAG FINAL
[2017-11-10 09:17] LABS: HEMOGLOBIN 8.2 GM/DL (11.6-15.3)
[2017-11-10] MEDS: LIDOCAINE HCL 1% PF 5 ML SYRINGE OTHER (12:00)
[2017-11-10] MEDS: PROPOFOL 200 MG/20 ML AMP IV (12:00)
[2017-11-10] MEDS ORDERED: DO NOT ADM ANY ANTICOAGULANT DRUGS (16:45)
[2017-11-10] MEDS: VITAMIN B CMPLX/VITC/FOLIC AC CAP PO (17:30)
[2017-11-10 19:22] LABS: HEMOGLOBIN 7.6 GM/DL (11.6-15.3)
[2017-11-10 19:22] LABS: HEMATOCRIT 21.9 % (35.0-46.0); REVIEW FLAG FINAL
[2017-11-10 19:46] LABS: PHOSPHORUS 3.5 MG/DL (2.5-4.9)
[2017-11-10] MEDS: ATORVASTATIN 10 MG TAB PO (20:05)
[2017-11-10] MEDS: EPOETIN ALFA 10,000 UNITS/ML VIAL IV PUSH (20:36)
[2017-11-10] MEDS: GELATIN 12 MM/7 MM FOAM TOP (20:42)
[2017-11-10] MEDS: traMADol HCL 50 MG TAB PO (21:18)
[2017-11-11 00:34] LABS: HEMATOCRIT 24.8 % (35.0-46.0); REVIEW FLAG FINAL
[2017-11-11 00:34] LABS: HEMOGLOBIN 8.7 GM/DL (11.6-15.3)
[2017-11-11] MEDS: CHLORHEXIDINE GLUCONATE 2 % 1 PACK (2 CLOTHS)(taper/protocol) TOPICAL ×2 (04:00→21:07)
[2017-11-11 06:24] LABS: ALBUMIN 3.3 GM/DL (3.4-5.0); ALKALINE PHOSPHATASE 205 U/L (45-117); ALT (GPT) 10 U/L (10-53); ANION GAP 7 MEQ/L (5-15); AST (GOT) 20 U/L (15-37); BICARBONATE 30.6 MEQ/L (21.0-32.0); CALCIUM 7.5 MG/DL (8.5-10.1); CHLORIDE 101 MEQ/L (98-107); CREATININE 8.08 MG/DL (0.50-1.00); GLOMERULAR FILTRATION RATE 6 ML/MIN (>89); GLUCOSE,RANDOM 107 MG/DL (74-106); POTASSIUM 4.6 MEQ/L (3.5-5.1); SODIUM (NA) 139 MEQ/L (136-145); TOTAL BILIRUBIN ADULT 0.5 MG/DL (0.2-1.0); TOTAL PROTEIN 7.1 GM/DL (6.4-8.2)
[2017-11-11 06:25] LABS: BLOOD UREA NITROGEN 40 MG/DL (7-18)
[2017-11-11 07:14] LABS: HEMATOCRIT 24.9 % (35.0-46.0); HEMOGLOBIN 8.2 GM/DL (11.6-15.3); MEAN CELL VOLUME 92.7 FL (80.0-100.0); MEAN CORPUSCULAR HEMOGLOBIN 30.6 PG (27.0-34.0); MEAN PLATELET VOLUME 9.2 FL (7.0-11.0); PLATELET COUNT 158 TH/MM3 (150-450); RED BLOOD COUNT 2.69 MIL/MM3 (4.00-5.30); RED CELL DISTRIBUTION WIDTH 16.9 % (11.6-17.2); REVIEW FLAG FINAL; WHITE BLOOD COUNT 6.9 TH/MM3 (4.0-11.0)
[2017-11-11] MEDS: SODIUM CHLOR 0.9% 1000 ML INJ 1,000 ML IV (07:15)
[2017-11-11] MEDS: INSULIN ASPART SUPPLEMENTAL SCALE SQ ×4 (07:44→21:07)
[2017-11-11] MEDS: BUDESONIDE-FORMOTEROL 160/4.5 MCG INHALER INH ×2 (07:45→21:06)
[2017-11-11] MEDS: BRIMONIDINE TARTRATE 0.2% OPHT SOLN 5 ML BTL EACH EYE ×2 (07:45→21:06)
[2017-11-11] MEDS: PANTOPRAZOLE INJ 80 MG in SODIUM CHLORIDE 0.9% INJ 100 ML IV ×2 (07:45→17:55)
[2017-11-11] MEDS: SODIUM CHLORIDE 0.9% FLUSH 10 ML FLUSH IV FLUSH ×3 (07:46→21:06)
[2017-11-11] MEDS: TIMOLOL MALEATE 0.5% OPHT SOLN 5 ML BTL EACH EYE ×2 (07:46→21:05)
[2017-11-11] MEDS: VITAMIN B CMPLX/VITC/FOLIC AC CAP PO (07:47)
[2017-11-11] MEDS: SEVELAMER CARBONATE 800 MG TAB PO ×3 (07:47→17:59)
[2017-11-11] MEDS: traMADol HCL 50 MG TAB PO ×2 (07:48→11:27)
[2017-11-11] MEDS: levETIRAcetam 500 MG TAB PO ×3 (07:48→18:00)
[2017-11-11] MEDS: DULoxetine HCl DR 20 MG CAP PO (07:49)
[2017-11-11] MEDS ORDERED: PANTOPRAZOLE SODIUM 40 MG VIAL IV PUSH (09:00)
[2017-11-11] MEDS: amLODIPine BESYLATE 5 MG TAB PO ×2 (10:30→15:23)
[2017-11-11] MEDS: LABETALOL HCL 100 MG TAB PO ×2 (10:30→15:24)
[2017-11-11] MEDS ORDERED: PILL SPLITTER OTHER (10:45)
[2017-11-11] MEDS: ATORVASTATIN 10 MG TAB PO (21:05)
[2017-11-12] MEDS: PANTOPRAZOLE INJ 80 MG in SODIUM CHLORIDE 0.9% INJ 100 ML IV (06:10)
[2017-11-12 07:20] LABS: MEAN CELL VOLUME 93.6 FL (80.0-100.0); MEAN CORPUSCULAR HEMOGLOBIN 31.3 PG (27.0-34.0); MEAN CORPUSCULAR HGB CONC 33.4 % (32.0-36.0); MEAN PLATELET VOLUME 8.8 FL (7.0-11.0); PLATELET COUNT 174 TH/MM3 (150-450); RED BLOOD COUNT 2.89 MIL/MM3 (4.00-5.30); RED CELL DISTRIBUTION WIDTH 16.7 % (11.6-17.2); REVIEW FLAG FINAL; WHITE BLOOD COUNT 7.9 TH/MM3 (4.0-11.0)
[2017-11-12 07:52] LABS: ANION GAP 9 MEQ/L (5-15); BICARBONATE 30.4 MEQ/L (21.0-32.0); BLOOD UREA NITROGEN 54 MG/DL (7-18); CALCIUM 8.1 MG/DL (8.5-10.1); CHLORIDE 99 MEQ/L (98-107); GLOMERULAR FILTRATION RATE 5 ML/MIN (>89); GLUCOSE,RANDOM 97 MG/DL (74-106); POTASSIUM 4.8 MEQ/L (3.5-5.1); SODIUM (NA) 138 MEQ/L (136-145)
[2017-11-12 07:55] LABS: CREATININE 10.21 MG/DL (0.50-1.00)
[2017-11-12] MEDS: INSULIN ASPART SUPPLEMENTAL SCALE SQ ×3 (08:00→17:46)
[2017-11-12] MEDS: BUDESONIDE-FORMOTEROL 160/4.5 MCG INHALER INH (08:44)
[2017-11-12] MEDS: BRIMONIDINE TARTRATE 0.2% OPHT SOLN 5 ML BTL EACH EYE (08:44)
[2017-11-12] MEDS: TIMOLOL MALEATE 0.5% OPHT SOLN 5 ML BTL EACH EYE (08:44)
[2017-11-12] MEDS: SODIUM CHLORIDE 0.9% FLUSH 10 ML FLUSH IV FLUSH (08:44)
[2017-11-12] MEDS: levETIRAcetam 500 MG TAB PO ×3 (09:00→17:45)
[2017-11-12] MEDS: SEVELAMER CARBONATE 800 MG TAB PO ×3 (09:00→17:45)
[2017-11-12] MEDS: EPOETIN ALFA 10,000 UNITS/ML VIAL IV PUSH ×2 (11:45→11:49)
[2017-11-12] MEDS: DULoxetine HCl DR 20 MG CAP PO (13:50)
[2017-11-12] MEDS: FUROSEMIDE 80 MG TAB PO (13:50)
[2017-11-12] MEDS: ALLOPURINOL 100 MG TAB PO (13:51)
[2017-11-12] MEDS: VITAMIN B CMPLX/VITC/FOLIC AC CAP PO (13:51)
[2017-11-12 15:40] LABS: LEVETIRACETAM 34.3 mcg/mL (12.0 - 46.0)
== END 2017-11-12 18:32 | disposition home health service (06) | DRG 377 ==
LOC: N05B 11-11 11:47 → NEPE 12:08 → NEDA 14:19 → NEPFCDU 15:11 → HIME 17:25
PROC: 0DBM8ZX Excision of Descending Colon, Via Natural or Artificial Opening Endoscopic, Diagnostic (ICD-10-PCS; principal; 2017-11-10 15:39)
PROC: 0D5H8ZZ Destruction of Cecum, Via Natural or Artificial Opening Endoscopic (ICD-10-PCS; 2017-11-10 15:39)
PROC: 0DJ08ZZ Inspection of Upper Intestinal Tract, Via Natural or Artificial Opening Endoscopic (ICD-10-PCS; 2017-11-10 15:39)
PROC: 5A1D70Z Performance of Urinary Filtration, Intermittent, Less than 6 Hours Per Day (ICD-10-PCS; 2017-11-10 15:39)
PROC: 30233N1 Transfusion of Nonautologous Red Blood Cells into Peripheral Vein, Percutaneous Approach (ICD-10-PCS; 2017-11-10 15:39)
DX: K29.71 Gastritis, unspecified, with bleeding (principal); N18.6 End stage renal disease; K63.3 Ulcer of intestine; E88.89 Other specified metabolic disorders; I12.0 Hypertensive chronic kidney disease with stage 5 chronic kidney disease or end stage renal disease; D62 Acute posthemorrhagic anemia; E11.22 Type 2 diabetes mellitus with diabetic chronic kidney disease; E11.42 Type 2 diabetes mellitus with diabetic polyneuropathy; E11.39 Type 2 diabetes mellitus with other diabetic ophthalmic complication; E83.51 Hypocalcemia; D63.1 Anemia in chronic kidney disease; I25.10 Atherosclerotic heart disease of native coronary artery without angina pectoris; K44.9 Diaphragmatic hernia without obstruction or gangrene; K64.8 Other hemorrhoids; R26.9 Unspecified abnormalities of gait and mobility; E78.5 Hyperlipidemia, unspecified; E66.9 Obesity, unspecified; D12.4 Benign neoplasm of descending colon; H54.8 Legal blindness, as defined in USA; H40.10X0 Unspecified open-angle glaucoma, stage unspecified; M10.9 Gout, unspecified; K64.4 Residual hemorrhoidal skin tags; M19.90 Unspecified osteoarthritis, unspecified site; F32.9 Major depressive disorder, single episode, unspecified; F41.9 Anxiety disorder, unspecified; Z68.38 Body mass index [BMI] 38.0-38.9, adult; Z79.4 Long term (current) use of insulin; Z88.1 Allergy status to other antibiotic agents; Z88.5 Allergy status to narcotic agent; Z88.6 Allergy status to analgesic agent; Z95.1 Presence of aortocoronary bypass graft; Z99.2 Dependence on renal dialysis
CPT/HCPCS: 36430; 36591; 78278; 80048; 80053; 80177; 82948; 83690; 84100; 84484; 85014; 85018; 85025; 85027; 85610; 85730; 86850; 86900; 86901; 86920; 87641; 88305; 90935; 96374; 97110-GP; 97163-GP; 97530-GP; 99285-25

== ENCOUNTER 2017-11-27 18:49 | Emergency (ER) | payer MEDICARE, MEDICAID ==
[~2017-11-27] VITALS: Ht 170.2 cm; Wt 88.6 kg
[~2017-11-27 18:49] MED LIST changes: -CARA1TAB6 PO; -CHLORHEXIDINE GLUCONATE 2 % 1 PACK (2 CLOTHS) TOPICAL PRN; -DEXTROSE 5%-LACTATED RING INJ 1,000 ML IV SCH; -LACTATED RINGER'S 1000 ML IV PRN; -METOPROLOL TARTRATE 25 MG TAB PO PRN; -MIDO10TA PO; -POVIDONE IODINE 5% (ANTISEPSIS KIT) 4 APPLICATIONS EACH NARE PRN; -PROPOFOL 200 MG/20 ML AMP IV ONE; -SODIUM CHLORID 0.9% 500 ML IV PRN
[2017-11-27 18:51] VITALS: BP 181/85; PULSE 91; RESP 14; TEMP 97.6; O2SAT 100
[2017-11-27] MEDS ORDERED: ONDANSETRON HCL 4 MG/2 ML VIAL IV PUSH ONE (22:00)
[2017-11-27] MEDS ORDERED: FAMOTIDINE 20 MG/2 ML VIAL IV PUSH SCH (22:00)
--- NOTE | 2017-11-27 22:11 | PD ---
HPI Chief Complaint: Abdominal Pain Time Seen by Provider: 21:35 Travel History International Travel<30 days: No Contact w/Intl Traveler<30days: No Traveled to known affect area: No History of Present Illness HPI Patient is a 56-year-old female coming in with 2 days of diarrhea epigastric pain sharp burning pain localized epigastrium and vomiting. She is not taking any medication to alleviate her symptoms. And the symptoms continue in the ER. Her past medical history is end-stage renal disease where she gets dialyzed Friday. She was dialyzer 3 hours on the machine yesterday medications. She denies any sick contacts she lives with her who is bedside he does not have any nausea vomiting or diarrhea. Patient surgical history she had an appendicitis when she was young and she has an AV fistula surgery otherwise significant past medical history abdomen is diffusely tender mostly epigastric and right upper quadrant PFSH Past Medical History Hx Anticoagulant Therapy: Yes Anemia: Yes Arthritis: Yes Asthma: No Autoimmune Disease: No Blood Disorders: Yes (anemia of chronic disease) Anxiety: Yes Depression: Yes Heart Rhythm Problems: No Cancer: No Cardiac Catheterization: No Cardiovascular Problems: Yes High Cholesterol: Yes Chemotherapy: No Chest Pain: Yes Congestive Heart Failure: No COPD: No Cerebrovascular Accident: No Diabetes: Yes Dialysis: Yes ([facility] FRI/FRI/FRI LAST WENT 04/25/17) Diminished Hearing: No Endocrine: Yes Gastrointestinal Disorders: No GERD: No Glaucoma: No Genitourinary: Yes (ESRD) Headaches: Yes Hepatitis: No (ANEMIA) Hiatal Hernia: No Heparin Induced Thrombocytopen: No Hypertension: Yes Immune Disorder: No Implanted Vascular Access Dvce: Yes (L UPPER ARM AVF) Musculoskeletal: Yes Neurologic: No Psychiatric: No Respiratory: No Migraines: No Radiation Therapy: No Renal Failure: Yes Seizures: No Sickle Cell Disease: No Sleep Apnea: No Thyroid Disease: No Ulcer: No PNEUMOCCOCAL Vaccine (Year): 2 Menopausal: Yes : 2 Para: 1 Miscarriage: 1 : 0 Past Surgical History Abdominal Surgery: Yes (appendectomy) AICD: No Appendectomy: Yes Arteriovenous Shunt: No Body Medical Devices: left AV fistula Cardiac Surgery: Yes (CABG) Section: Yes Coronary Artery Bypass Graft: Yes Ear Surgery: No Endocrine Surgery: No Eye Surgery: Yes (bilateral cataracts removal) Genitourinary Surgery: No Gynecologic Surgery: Yes () Insulin Pump: No Joint Replacement: No Oral Surgery: No Pacemaker: No Thoracic Surgery: No Other Surgery: Yes (LEFT ARM SHUNT PLACEMENT) Social History Alcohol Use: No Tobacco Use: No Substance Use: No Allergies-Medications (Allergen,Severity, Reaction): Coded Allergies: acetaminophen (Unverified Allergy, Severe, VOMITING, 11/27/17) linezolid (Unverified Allergy, Severe, VOMITING, 11/27/17) piperacillin (Unverified Allergy, Severe, VOMITING, 11/27/17) simvastatin (Unverified Allergy, Severe, VOMITING, 11/27/17) tazobactam (Unverified Allergy, Severe, VOMITING, 11/27/17) oxycodone (Unverified Adverse Reaction, Severe, VOMITING, 11/27/17) Reported Meds & Prescriptions Reported Meds & Active Scripts Active Magic Mouthwash Pediatric/Adult Liq (Lidocaine/Diphenhydr/Alum/Mg/Simeth) 60 Ml Susp 5 Ml SWISH-SWAL ACHS Each 5mL contains: Diphenydramine 4.5mg, Viscous Lidocaine 2% 10mg, Maalox Advanced Regular Strength 2.7ml Pepcid (Famotidine) 20 Mg Tab 20 Mg PO BID Labetalol (Labetalol HCl) 100 Mg Tab 50 Mg PO BID 30 Days check BP prior to taking hold for SBP < 130 and recheck after an hour Levemir Inj (Insulin Detemir) 1,000 unit/ 10 ML Vial 10 Units SQ HS 30 Days check blood sugar prior to taking Ptmyqdmgvu-Vioawjqejnepz-Hyuvcmzi 50-325-40 Mg Tab 1 Tab PO Q6H PRN Norvasc (Amlodipine Besylate) 5 Mg Tab 5 Mg PO DAILY [address] (Duloxetine HCl) 20 Mg Capdr 20 Mg PO DAILY Combigan Opth Drops (Brimonidine-Timolol Opth Drops) 0.2-0.5% Soln 1 Drop EACH EYE Q12HR 14 Days Reported Senna-Plus (Sennosides-Docusate Sodium) 8.6-50 Mg Tab 1 Tab PO DAILY Renvela (Sevelamer Carbonate) 800 Mg Tab 2,400 Mg PO TID Take 3 tabs (2,400mg) three times a day with meals & 1 tab (800mg) with snacks Renal Vitamin (B-Complex W/ C & Folic Acid) 1 Tab 1 Tab PO DAILY Protonix (Pantoprazole Sodium) 40 Mg Tab 40 Mg PO DAILY Keppra (Levetiracetam) 500 Mg Tab 1,000 Mg PO TID Lasix (Furosemide) 80 Mg Tab 80 Mg PO DAILY Plavix (Clopidogrel Bisulfate) 75 Mg Tab 75 Mg PO DAILY Dulcolax DR (Bisacodyl) 5 Mg Tabdr 5 Mg PO BID Lipitor (Atorvastatin Calcium) 10 Mg Tab 10 Mg PO HS Allopurinol 100 Mg Tab 100 Mg PO DAILY Advair Diskus Inh (Fluticasone-Salmeterol Inh) 250-50 Mcg/Blist Aer 1 Puff INH BID Rinse mouth after use. Review of Systems Except as stated in HPI: all other systems reviewed are Neg General / Constitutional: Positive: Fever Gastrointestinal: Positive: Nausea, Vomiting, Diarrhea, Abdominal Pain Physical Exam Narrative GENERAL: Awake alert nontoxic appearing SKIN: Warm and dry. HEAD: Atraumatic. Normocephalic. EYES: Pupils equal and round. No scleral icterus. No injection or drainage. ENT: No nasal bleeding or discharge. Mucous membranes pink and moist. NECK: Trachea midline. No JVD. CARDIOVASCULAR: Regular rate and rhythm. RESPIRATORY: No accessory muscle use. Clear to auscultation. Breath sounds equal bilaterally. GASTROINTESTINAL: Abdomen positive tenderness epigastrium and right upper quadrant mild tenderness left lower quadrant slightly distended.,. Hepatic and splenic margins not palpable. MUSCULOSKELETAL: Extremities without clubbing, cyanosis, or edema. No obvious deformities. NEUROLOGICAL: Awake and alert. No obvious cranial nerve deficits. Motor grossly within normal limits. Five out of 5 muscle strength in the arms and legs. Normal speech. PSYCHIATRIC: Appropriate mood and affect; insight and judgment normal. Data Data Last Documented VS Vital Signs Date Time Temp Pulse Resp B/P (MAP) Pulse Ox O2 Delivery O2 Flow Rate FiO2 11/28/17 00:59 11/27/17 22:04 18 11/27/17 18:51 97.6 91 100 Orders Orders Complete Blood Count With Diff (11/27/17 21:52) Comprehensive Metabolic Panel (11/27/17 21:52) Lipase (11/27/17 21:52) Troponin I (11/27/17 21:52) Ondansetron Inj (Zofran Inj) (11/27/17 22:00) Famotidine Inj (Pepcid Inj) (11/27/17 22:00) Abdomen, Flat & Upright (11/27/17 ) Lidocaine 2% Viscous (Xylocaine 2% Visco (11/28/17 00:15) Al-Mag Hy-Si 40-40-4 Mg/Ml Liq (Mag-Al P (11/28/17 00:15) Ed Discharge Order (11/28/17 00:53) Labs Laboratory Tests Test 11/27/17 22:25 White Blood Count 8.1 TH/MM3 Red Blood Count 3.26 MIL/MM3 Hemoglobin 10.1 GM/DL Hematocrit 30.2 % Mean Corpuscular Volume 92.6 FL Mean Corpuscular Hemoglobin 31.1 PG Mean Corpuscular Hemoglobin Concent 33.5 % Red Cell Distribution Width 16.6 % Platelet Count 228 TH/MM3 Mean Platelet Volume 8.5 FL Neutrophils (%) (Auto) 61.4 % Lymphocytes (%) (Auto) 26.9 % Monocytes (%) (Auto) 9.6 % Eosinophils (%) (Auto) 1.6 % Basophils (%) (Auto) 0.5 % Neutrophils # (Auto) 5.0 TH/MM3 Lymphocytes # (Auto) 2.2 TH/MM3 Monocytes # (Auto) 0.8 TH/MM3 Eosinophils # (Auto) 0.1 TH/MM3 Basophils # (Auto) 0.0 TH/MM3 CBC Comment DIFF FINAL Differential Comment Blood Urea Nitrogen 30 MG/DL Creatinine 8.00 MG/DL Random Glucose 101 MG/DL Total Protein 8.2 GM/DL Albumin 3.8 GM/DL Calcium Level 8.9 MG/DL Alkaline Phosphatase 195 U/L Aspartate Amino Transf (AST/SGOT) 14 U/L Alanine Aminotransferase (ALT/SGPT) 10 U/L Total Bilirubin 0.6 MG/DL Sodium Level 138 MEQ/L Potassium Level 3.3 MEQ/L Chloride Level 98 MEQ/L Carbon Dioxide Level 31.7 MEQ/L Anion Gap 8 MEQ/L Estimat Glomerular Filtration Rate 6 ML/MIN Troponin I 0.02 NG/ML Lipase 124 U/L [facility] Medical Decision Making Medical Screen Exam Complete: Yes Emergency Medical Condition: Yes Differential Diagnosis Gastritis versus pancreatitis versus gallbladder disease versus viral gastroenteritis Narrative Course pt has releif from GI cocktail and PEpcid zofran POC BEDSIDE SONO BY THIS MD shows no gallstones there was a polyp like whitish round non gravity dependent 2cm round seen attached to wall GB, otherwise no fluid around GB amd no signs or symptoms of cholecystitis,,D/C home Procedures Procedure Narrative POC BEDSIDE SONO BY THIS MD shows no gallstones there was a single polyp like whitish round non gravity dependent 2cm round polyplike seen attached to wall GB, otherwise no pericholic fluid around GB and no signs or symptoms of cholecystitis,,D/C home Diagnosis Primary Impression: Gastroenteritis Additional Impression: Gastritis Patient Instructions: Gastritis (ED), General Instructions Scripts Ivuhkqikiowcvxt-Psqqbazpt-Kpz-Alum-Simeth Liq (Magic Mouthwash Pediatric/Adult Liq) 60 Ml Susp 5 ML SWISH-SWAL ACHS for Mouth sores, #60 ML 0 Refills Each 5mL contains: Diphenydramine 4.5mg, Viscous Lidocaine 2% 10mg, Maalox Advanced Regular Strength 2.7ml Prov: Marty Jackson MD 11/28/17 Famotidine (Pepcid) 20 Mg Tab 20 MG PO BID, #20 TAB 0 Refills Prov: Marty Jackson MD 11/28/17 Disposition: 01 DISCHARGE HOME Condition: Good Marty Jackson MD Nov 27, 2017 22:11
[2017-11-27 22:35] LABS: BASOPHIL % 0.5 % (0.0-2.0); EOSINOPHIL # 0.1 TH/MM3 (0-0.4); EOSINOPHIL % 1.6 % (0.0-4.0); HEMATOCRIT 30.2 % (35.0-46.0); HEMOGLOBIN 10.1 GM/DL (11.6-15.3); LYMPH % 26.9 % (9.0-44.0); LYMPHOCYTE # 2.2 TH/MM3 (1.0-4.8); MEAN CELL VOLUME 92.6 FL (80.0-100.0); MEAN CORPUSCULAR HEMOGLOBIN 31.1 PG (27.0-34.0); MEAN CORPUSCULAR HGB CONC 33.5 % (32.0-36.0); MEAN PLATELET VOLUME 8.5 FL (7.0-11.0); MONO % 9.6 % (0.0-8.0); MONOCYTE # 0.8 TH/MM3 (0-0.9); NEUT % 61.4 % (16.0-70.0); PLATELET COUNT 228 TH/MM3 (150-450); RED BLOOD COUNT 3.26 MIL/MM3 (4.00-5.30); RED CELL DISTRIBUTION WIDTH 16.6 % (11.6-17.2); WHITE BLOOD COUNT 8.1 TH/MM3 (4.0-11.0)
[2017-11-27 22:53] LABS: ALBUMIN 3.8 GM/DL (3.4-5.0); AST (GOT) 14 U/L (15-37); BICARBONATE 31.7 MEQ/L (21.0-32.0); BLOOD UREA NITROGEN 30 MG/DL (7-18); CALCIUM 8.9 MG/DL (8.5-10.1); CHLORIDE 98 MEQ/L (98-107); GLOMERULAR FILTRATION RATE 6 ML/MIN (>89); GLUCOSE,RANDOM 101 MG/DL (74-106); SODIUM (NA) 138 MEQ/L (136-145)
[2017-11-27 22:55] LABS: ALT (GPT) 10 U/L (10-53)
[2017-11-27 22:58] LABS: ALKALINE PHOSPHATASE 195 U/L (45-117); TOTAL BILIRUBIN ADULT 0.6 MG/DL (0.2-1.0); TOTAL PROTEIN 8.2 GM/DL (6.4-8.2); TROPONIN I 0.02 NG/ML (0.02-0.05)
--- NOTE | 2017-11-27 23:47 | RADRPT ---
EXAM DATE/TIME: 11/27/2017 23:12 [place] COMPARISON: No previous studies available for comparison. INDICATIONS : Abdominal pain with nausea and headache x 2 days. History of GI bleed. MEDICAL HISTORY : Diabetes mellitus type II. Hypercholesterolemia. Hypertension. Renal failure, Dialysis, Anemia SURGICAL HISTORY : Appendectomy. section. Left arm Shunt ENCOUNTER: Initial ACUITY: 2 days PAIN SCORE: 9/10 LOCATION: Bilateral Abdomen FINDINGS: Supine and upright views of the abdomen were performed. The abdominal bowel gas pattern is normal. No air fluid levels are seen. No abnormal masses, calcifications, or organomegaly is seen. The visu alized lower lungs are clear. No evidence of free intraperitoneal gas. The osseous structures are u nremarkable. CONCLUSION: No acute findings. Ramiro Silveira MD on November 27, 2017 at 23:42 Board Certified Radiologist. This report was verified electronically.
[2017-11-28] MEDS ORDERED: LIDOCAINE VISCOUS 2% SOLN 15 ML UDC SWISH-SWAL ONE (00:15)
[2017-11-28] MEDS ORDERED: ALUMINUM/MAGNESIUM/SIMETH 30 ML CUP PO ONE (00:15)
[2017-11-28] MEDS ORDERED: MAGICADU2 SWISH-SWAL (00:51)
[2017-11-28] MEDS ORDERED: FAMO1TAB37 PO (00:51)
[2017-11-28] MEDS ORDERED: MAGICPED SWISH-SWAL (00:52)
== END 2017-11-28 01:13 | disposition home or self-care (01) ==
LOC: NEPC 18:49
DX: K52.9 Noninfective gastroenteritis and colitis, unspecified (principal); K29.70 Gastritis, unspecified, without bleeding; I12.0 Hypertensive chronic kidney disease with stage 5 chronic kidney disease or end stage renal disease; N18.6 End stage renal disease; E11.22 Type 2 diabetes mellitus with diabetic chronic kidney disease; E78.00 Pure hypercholesterolemia, unspecified; Z79.4 Long term (current) use of insulin; Z99.2 Dependence on renal dialysis
CPT/HCPCS: 74019; 80053; 83690; 84484; 85025; 96374; 96375; 99284; J2405

== ENCOUNTER 2017-12-29 04:24 | Observation (INO) | payer MEDICARE, MEDICAID ==
[~2017-12-29] VITALS: Ht 170.2 cm; Wt 90.0 kg
[2017-12-29] VITALS (11 sets, daily range): BP systolic 114–203; BP diastolic 55–96; PULSE 73–89; RESP 18–19; TEMP 97.6–98.5; O2SAT 94–100
[~2017-12-29 04:24] MED LIST changes: -DIPH50CA PO; +FAMO1TAB37 PO; +MAGICPED SWISH-SWAL; -TRAM50TA PO
[2017-12-29 06:21] LABS: AUTOMATED NEUTROPHIL # 9.1 TH/MM3 (1.8-7.7); BASOPHIL # 0.1 TH/MM3 (0-0.2); BASOPHIL % 0.6 % (0.0-2.0); EOSINOPHIL # 0.2 TH/MM3 (0-0.4); EOSINOPHIL % 2.2 % (0.0-4.0); HEMATOCRIT 31.1 % (35.0-46.0); HEMOGLOBIN 10.3 GM/DL (11.6-15.3); LYMPHOCYTE # 1.4 TH/MM3 (1.0-4.8); MEAN CELL VOLUME 94.9 FL (80.0-100.0); MEAN CORPUSCULAR HEMOGLOBIN 31.4 PG (27.0-34.0); MEAN PLATELET VOLUME 8.7 FL (7.0-11.0); MONO % 5.6 % (0.0-8.0); MONOCYTE # 0.6 TH/MM3 (0-0.9); NEUT % 79.6 % (16.0-70.0); PLATELET COUNT 278 TH/MM3 (150-450); RED BLOOD COUNT 3.27 MIL/MM3 (4.00-5.30); RED CELL DISTRIBUTION WIDTH 18.6 % (11.6-17.2); WHITE BLOOD COUNT 11.4 TH/MM3 (4.0-11.0)
--- NOTE | 2017-12-29 06:22 | PD ---
HPI Chief Complaint: Chest Pain Time Seen by Provider: 06:13 Travel History International Travel<30 days: No Contact w/Intl Traveler<30days: No Traveled to known affect area: No History of Present Illness HPI 57yo F with PMH of ESRD on HD M/W/ (last HD Friday), DM, bilateral blindness presents to the ED with c/o chest pain and abdominal pain today. Chest pain is midsternal and constant. Abdominal pain in more left upper abdomen and associated with nausea and vomiting. Denies any fever, sob, vaginal bleeding or discharge. Pt does not urinate. Rotary Cutter is Dr. Ramirez. 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 Denies prior [place]. PFSH Past Medical History Hx Anticoagulant Therapy: Yes Anemia: Yes Arthritis: Yes Asthma: No Autoimmune Disease: No Blood Disorders: Yes (anemia of chronic disease) Anxiety: Yes Depression: Yes Heart Rhythm Problems: No Cancer: No Cardiac Catheterization: No Cardiovascular Problems: Yes High Cholesterol: Yes Chemotherapy: No Chest Pain: Yes Congestive Heart Failure: No COPD: No Cerebrovascular Accident: No Diabetes: Yes Patient Takes Glucophage: Yes Dialysis: Yes ([facility] FRI/FRI/FRI LAST WENT 11-26-17) Diminished Hearing: No Endocrine: Yes Gastrointestinal Disorders: No GERD: No Glaucoma: No Genitourinary: Yes (ESRD) Headaches: Yes Hiatal Hernia: No Heparin Induced Thrombocytopen: No Hypertension: Yes Immune Disorder: No Implanted Vascular Access Dvce: Yes (L UPPER ARM AVF) Musculoskeletal: Yes Neurologic: No Psychiatric: No Respiratory: No Migraines: No Radiation Therapy: No Renal Failure: Yes (ANURIC) Seizures: No Sickle Cell Disease: No Sleep Apnea: No Thyroid Disease: No Ulcer: No Tetanus Vaccination: < 5 Years Influenza Vaccination: No PNEUMOCCOCAL Vaccine (Year): 2 Menopausal: Yes : 2 Para: 1 Miscarriage: 1 : 0 Past Surgical History Abdominal Surgery: Yes (appendectomy) AICD: No Appendectomy: Yes Arteriovenous Shunt: No Body Medical Devices: left AV fistula Cardiac Surgery: Yes (CABG) Section: Yes Coronary Artery Bypass Graft: Yes Ear Surgery: No Endocrine Surgery: No Eye Surgery: Yes (bilateral cataracts removal) Genitourinary Surgery: No Gynecologic Surgery: Yes () Insulin Pump: No Joint Replacement: No Oral Surgery: No Pacemaker: No Thoracic Surgery: No Other Surgery: Yes (LEFT ARM SHUNT PLACEMENT, APPENDECTOMY) Social History Alcohol Use: No Tobacco Use: No Substance Use: No Allergies-Medications (Allergen,Severity, Reaction): Coded Allergies: acetaminophen (Unverified Allergy, Severe, VOMITING, 12/29/17) linezolid (Unverified Allergy, Severe, VOMITING, 12/29/17) piperacillin (Unverified Allergy, Severe, VOMITING, 12/29/17) simvastatin (Unverified Allergy, Severe, VOMITING, 12/29/17) tazobactam (Unverified Allergy, Severe, VOMITING, 12/29/17) oxycodone (Unverified Adverse Reaction, Severe, VOMITING, 12/29/17) Reported Meds & Prescriptions Reported Meds & Active Scripts Active Magic Mouthwash Pediatric/Adult Liq (Lidocaine/Diphenhydr/Alum/Mg/Simeth) 60 Ml Susp 5 Ml SWISH-SWAL ACHS Each 5mL contains: Diphenydramine 4.5mg, Viscous Lidocaine 2% 10mg, Maalox Advanced Regular Strength 2.7ml Pepcid (Famotidine) 20 Mg Tab 20 Mg PO BID Labetalol (Labetalol HCl) 100 Mg Tab 50 Mg PO BID 30 Days check BP prior to taking hold for SBP < 130 and recheck after an hour Levemir Inj (Insulin Detemir) 1,000 unit/ 10 ML Vial 10 Units SQ HS 30 Days check blood sugar prior to taking Vagoemykcs-Nqwlykyukmaqi-Ucwpalyd 50-325-40 Mg Tab 1 Tab PO Q6H PRN Norvasc (Amlodipine Besylate) 5 Mg Tab 5 Mg PO DAILY [address] (Duloxetine HCl) 20 Mg Capdr 20 Mg PO DAILY Combigan Opth Drops (Brimonidine-Timolol Opth Drops) 0.2-0.5% Soln 1 Drop EACH EYE Q12HR 14 Days Reported Senna-Plus (Sennosides-Docusate Sodium) 8.6-50 Mg Tab 1 Tab PO DAILY Renvela (Sevelamer Carbonate) 800 Mg Tab 2,400 Mg PO TID Take 3 tabs (2,400mg) three times a day with meals & 1 tab (800mg) with snacks Renal Vitamin (B-Complex W/ C & Folic Acid) 1 Tab 1 Tab PO DAILY Protonix (Pantoprazole Sodium) 40 Mg Tab 40 Mg PO DAILY Keppra (Levetiracetam) 500 Mg Tab 1,000 Mg PO TID Lasix (Furosemide) 80 Mg Tab 80 Mg PO DAILY Plavix (Clopidogrel Bisulfate) 75 Mg Tab 75 Mg PO DAILY Dulcolax DR (Bisacodyl) 5 Mg Tabdr 5 Mg PO BID Lipitor (Atorvastatin Calcium) 10 Mg Tab 10 Mg PO HS Allopurinol 100 Mg Tab 100 Mg PO DAILY Advair Diskus Inh (Fluticasone-Salmeterol Inh) 250-50 Mcg/Blist Aer 1 Puff INH BID Rinse mouth after use. Review of Systems Except as stated in HPI: all other systems reviewed are Neg Physical Exam Narrative GENERAL: 57yo F in mild distress. SKIN: Focused skin assessment warm/dry. HEAD: Atraumatic. Normocephalic. CARDIOVASCULAR: Regular rate and rhythm. No murmur appreciated. RESPIRATORY: No accessory muscle use. Clear to auscultation. Breath sounds equal bilaterally. GASTROINTESTINAL: Abdomen soft, +TTP LUQ. +TTP epigastric region. No rebound tenderness or guarding. MUSCULOSKELETAL: No obvious deformities. No clubbing. No cyanosis. No edema. NEUROLOGICAL: Awake and alert. No obvious cranial nerve deficits. Motor grossly within normal limits. Normal speech. PSYCHIATRIC: Appropriate mood and affect; insight and judgment normal. Data Data Last Documented VS Vital Signs Date Time Temp Pulse Resp B/P (MAP) Pulse Ox O2 Delivery O2 Flow Rate FiO2 12/29/17 07:44 73 18 162/78 (106) 100 Nasal Cannula 2.00 12/29/17 04:42 98.5 Orders Orders Electrocardiogram (12/29/17 ) Complete Blood Count With Diff (12/29/17 06:00) Basic Metabolic Panel (Bmp) (12/29/17 06:00) Ckmb (Isoenzyme) Profile (12/29/17 06:00) Troponin I (12/29/17 06:00) Chest, Single Ap (12/29/17 06:00) Iv Access Insert/Monitor (12/29/17 06:00) Ecg Monitoring (12/29/17 06:00) Oxygen Administration (12/29/17 06:00) Oximetry (12/29/17 06:00) Prothrombin Time / Inr (Pt) (12/29/17 06:05) Act Partial Throm Time (Ptt) (12/29/17 06:05) Lipase (12/29/17 06:14) Ct Abd/Pel W/O Iv Contrast (12/29/17 ) Ondansetron Inj (Zofran Inj) (12/29/17 07:00) Aspirin Chew (Aspirin Chew) (12/29/17 07:30) Labetalol Inj (Trandate Inj) (12/29/17 07:30) Insulin Human Regular Inj (Novolin R Inj (12/29/17 08:00) Dextrose 50% In Sarmad (Vial) Inj (D50w (Vi (12/29/17 08:00) Sodium Bicarbonate 8.4% Inj (Sodium Bica (12/29/17 08:00) Admit Order (Ed Use Only) (12/29/17 08:36) Vital Signs (Adult) DIA.Q4H (12/29/17 08:35) Consult Nephrology (12/29/17 ) Troponin I (12/29/17 10:00) Blood Glucose Goal (Criteria) (12/29/17 08:38) Hypoglycemia 70 Mg/Dl Or < (12/29/17 08:38) Notify Dr: Other (12/29/17 08:38) Dextrose 50% In Sarmad (Vial) Inj (D50w (Vi (12/29/17 08:45) Glucagon Inj (Glucagon Inj) (12/29/17 08:45) Insulin Aspart Supplemtl Scale (Novolog (12/29/17 12:00) Diet Renal (12/29/17 Breakfast) Labs Laboratory Tests Test 12/29/17 06:07 12/29/17 06:23 White Blood Count 11.4 TH/MM3 Red Blood Count 3.27 MIL/MM3 Hemoglobin 10.3 GM/DL Hematocrit 31.1 % Mean Corpuscular Volume 94.9 FL Mean Corpuscular Hemoglobin 31.4 PG Mean Corpuscular Hemoglobin Concent 33.0 % Red Cell Distribution Width 18.6 % Platelet Count 278 TH/MM3 Mean Platelet Volume 8.7 FL Neutrophils (%) (Auto) 79.6 % Lymphocytes (%) (Auto) 12.0 % Monocytes (%) (Auto) 5.6 % Eosinophils (%) (Auto) 2.2 % Basophils (%) (Auto) 0.6 % Neutrophils # (Auto) 9.1 TH/MM3 Lymphocytes # (Auto) 1.4 TH/MM3 Monocytes # (Auto) 0.6 TH/MM3 Eosinophils # (Auto) 0.2 TH/MM3 Basophils # (Auto) 0.1 TH/MM3 CBC Comment DIFF FINAL Differential Comment Blood Urea Nitrogen 66 MG/DL Creatinine 10.23 MG/DL Random Glucose 90 MG/DL Calcium Level 8.0 MG/DL Sodium Level 133 MEQ/L Potassium Level 6.7 MEQ/L Chloride Level 95 MEQ/L Carbon Dioxide Level 31.6 MEQ/L Anion Gap 6 MEQ/L Estimat Glomerular Filtration Rate 5 ML/MIN Total Creatine Kinase 69 U/L Troponin I LESS THAN 0.02 NG/ML Lipase 155 U/L Prothrombin Time 11.1 SEC Prothromb Time International Ratio 1.1 RATIO Activated Partial Thromboplast Time 28.7 SEC MDM Medical Decision Making Medical Screen Exam Complete: Yes Emergency Medical Condition: Yes Interpretation(s) EKG: NSR 82bpm. LAD. TWI aVL, V6. No significant ST elevation. Differential Diagnosis ACS vs. colitis vs. pancreatitis Narrative Course 57yo F here with chest pain and abdominal pain. Pt has what sounds like a Tic where she makes sounds and her friend who is here said that has been going on for almost 1 year. Will do labs and obtain EKG, CXR and CT a/p without contrast. CXR showed cardiomegaly with interstitial pulmonary edema. CT a/p showed no acute abnormality. Sign out to next team to follow up on labs and reevaluate. Diagnosis Primary Impression: Chest pain Qualified Codes: R07.9 - Chest pain, unspecified Cynthia Valdez DO Dec 29, 2017 06:22
--- NOTE | 2017-12-29 06:38 | RADRPT ---
EXAM DATE/TIME: 12/29/2017 06:15 [facility] COMPARISON: CHEST SINGLE AP, September 15, 2017, 8:00. INDICATIONS : Short of breath. MEDICAL HISTORY : Hypertension. diabetes SURGICAL HISTORY : Appendectomy. section. ENCOUNTER: Initial ACUITY: 1 day PAIN SCORE: 0/10 LOCATION: Bilateral chest FINDINGS: A single portable frontal view the chest shows moderate cardiomegaly. Bibasilar predominate interstit ial opacities. No effusions. Degenerative thoracic spine. CONCLUSION: Cardiomegaly with interstitial pulmonary edema. Benjamin Jacobo Jr., MD on December 29, 2017 at 6:36 Board Certified Radiologist. This report was verified electronically.
--- NOTE | 2017-12-29 06:45 | RADRPT ---
EXAM DATE/TIME: 12/29/2017 06:33 [facility] COMPARISON: CT ABDOMEN & PELVIS W/O CONTRAST, June 18, 2017, 12:01. INDICATIONS : Abdomen pain. ORAL CONTRAST: No oral contrast ingested. RADIATION DOSE: 16.12 CTDIvol (mGy) MEDICAL HISTORY : Cardiovascular disease. Hypertension. Renal failure, acute.Dialysis SURGICAL HISTORY : CABG Appendectomy. section. ENCOUNTER: Initial ACUITY: 1 day PAIN SCALE: 10/10 LOCATION: abdomen TECHNIQUE: Volumetric scanning of the abdomen and pelvis was performed. Using automated exposure control and ad justment of the mA and/or kV according to patient size, radiation dose was kept as low as reasonably achievable to obtain optimal diagnostic quality images. DICOM format image data is available electro nically for review and comparison. FINDINGS: LOWER LUNGS: Small bilateral pleural effusions with patchy groundglass infiltrates. The heart is not enlarged. No pericardial effusion. LIVER: Homogeneous density without lesion. There is no dilation of the biliary tree. Tiny calcified gallsto margaret within an otherwise normal-appearing gallbladder. SPLEEN: Normal size without lesion. PANCREAS: Within normal limits. KIDNEYS: Normal in size and shape. There is no mass, stone, or hydronephrosis. Small bilateral cortical cysts . ADRENAL GLANDS: Within normal limits. VASCULAR: There is no aortic aneurysm. BOWEL/MESENTERY: The stomach, small bowel, and colon demonstrate no acute abnormality. There is no free intraperitone al air or fluid. ABDOMINAL WALL: Within normal limits. RETROPERITONEUM: There is no lymphadenopathy. BLADDER: No wall thickening or mass. REPRODUCTIVE: Within normal limits. INGUINAL: There is no lymphadenopathy or hernia. MUSCULOSKELETAL: Within normal limits for patient age. CONCLUSION: 1. No acute abnormality to explain the patient's pain. 2. Cholelithiasis. 3. Tiny bilateral pleural effusions with cardiomegaly and patchy ground glass infiltrates. This likel y relates pulmonary edema. Benjamin Jacobo Jr., MD on December 29, 2017 at 6:41 Board Certified Radiologist. This report was verified electronically.
[2017-12-29 06:47] LABS: INTERNATIONAL NORMALIZED RATIO 1.1 RATIO; PROTHROMBIN TIME - PATIENT 11.1 SEC (9.8-11.6)
[2017-12-29] MEDS ORDERED: ONDANSETRON HCL 4 MG/2 ML VIAL IV PUSH ONE (07:00)
--- NOTE | 2017-12-29 07:08 | PD ---
Physical Exam Date Seen by Provider: Dec 29, 2017 Time Seen by Provider: 07:06 Narrative The patient is a 57-year-old female was initially evaluated by the previous physician. Please refer to the initial history, physical, diagnostic evaluation , treatment modality plan. Data Data Last Documented VS Vital Signs Date Time Temp Pulse Resp B/P (MAP) Pulse Ox O2 Delivery O2 Flow Rate FiO2 12/29/17 07:44 73 18 162/78 (106) 100 Nasal Cannula 2.00 12/29/17 04:42 98.5 Orders Orders Electrocardiogram (12/29/17 ) Complete Blood Count With Diff (12/29/17 06:00) Basic Metabolic Panel (Bmp) (12/29/17 06:00) Ckmb (Isoenzyme) Profile (12/29/17 06:00) Troponin I (12/29/17 06:00) Chest, Single Ap (12/29/17 06:00) Iv Access Insert/Monitor (12/29/17 06:00) Ecg Monitoring (12/29/17 06:00) Oxygen Administration (12/29/17 06:00) Oximetry (12/29/17 06:00) Prothrombin Time / Inr (Pt) (12/29/17 06:05) Act Partial Throm Time (Ptt) (12/29/17 06:05) Lipase (12/29/17 06:14) Ct Abd/Pel W/O Iv Contrast (12/29/17 ) Ondansetron Inj (Zofran Inj) (12/29/17 07:00) Aspirin Chew (Aspirin Chew) (12/29/17 07:30) Labetalol Inj (Trandate Inj) (12/29/17 07:30) Potassium, Serum (K) (12/29/17 10:47) Insulin Human Regular Inj (Novolin R Inj (12/29/17 08:00) Dextrose 50% In Sarmad (Vial) Inj (D50w (Vi (12/29/17 08:00) Sodium Bicarbonate 8.4% Inj (Sodium Bica (12/29/17 08:00) Labs Laboratory Tests Test 12/29/17 06:07 12/29/17 06:23 White Blood Count 11.4 TH/MM3 Red Blood Count 3.27 MIL/MM3 Hemoglobin 10.3 GM/DL Hematocrit 31.1 % Mean Corpuscular Volume 94.9 FL Mean Corpuscular Hemoglobin 31.4 PG Mean Corpuscular Hemoglobin Concent 33.0 % Red Cell Distribution Width 18.6 % Platelet Count 278 TH/MM3 Mean Platelet Volume 8.7 FL Neutrophils (%) (Auto) 79.6 % Lymphocytes (%) (Auto) 12.0 % Monocytes (%) (Auto) 5.6 % Eosinophils (%) (Auto) 2.2 % Basophils (%) (Auto) 0.6 % Neutrophils # (Auto) 9.1 TH/MM3 Lymphocytes # (Auto) 1.4 TH/MM3 Monocytes # (Auto) 0.6 TH/MM3 Eosinophils # (Auto) 0.2 TH/MM3 Basophils # (Auto) 0.1 TH/MM3 CBC Comment DIFF FINAL Differential Comment Blood Urea Nitrogen 66 MG/DL Creatinine 10.23 MG/DL Random Glucose 90 MG/DL Calcium Level 8.0 MG/DL Sodium Level 133 MEQ/L Potassium Level 6.7 MEQ/L Chloride Level 95 MEQ/L Carbon Dioxide Level 31.6 MEQ/L Anion Gap 6 MEQ/L Estimat Glomerular Filtration Rate 5 ML/MIN Total Creatine Kinase 69 U/L Troponin I LESS THAN 0.02 NG/ML Lipase 155 U/L Prothrombin Time 11.1 SEC Prothromb Time International Ratio 1.1 RATIO Activated Partial Thromboplast Time 28.7 SEC [facility] Medical Record Reviewed: Yes Supervised Visit with FLORENCIO: No Interpretation(s) EKG reveals normal sinus rhythm with a rate 82. T-wave changes noted in lead V5 , V6, 1, aVL. Last Impressions Chest X-Ray 12/29/17 0600 Signed Impressions: Service Date/Time: Friday, December 29, 2017 06:15 - CONCLUSION: Cardiomegaly with interstitial pulmonary edema. Benjamin Jacobo Jr., MD Abdomen/Pelvis CT 12/29/17 0000 Signed Impressions: Service Date/Time: Friday, December 29, 2017 06:33 - CONCLUSION: 1. No acute abnormality to explain the patient's pain. 2. Cholelithiasis. 3. Tiny bilateral pleural effusions with cardiomegaly and patchy ground glass infiltrates. This likely relates pulmonary edema. Benjamin Jacobo Jr., MD Laboratory Tests Test 12/29/17 06:07 12/29/17 06:23 White Blood Count 11.4 TH/MM3 Red Blood Count 3.27 MIL/MM3 Hemoglobin 10.3 GM/DL Hematocrit 31.1 % Mean Corpuscular Volume 94.9 FL Mean Corpuscular Hemoglobin 31.4 PG Mean Corpuscular Hemoglobin Concent 33.0 % Red Cell Distribution Width 18.6 % Platelet Count 278 TH/MM3 Mean Platelet Volume 8.7 FL Neutrophils (%) (Auto) 79.6 % Lymphocytes (%) (Auto) 12.0 % Monocytes (%) (Auto) 5.6 % Eosinophils (%) (Auto) 2.2 % Basophils (%) (Auto) 0.6 % Neutrophils # (Auto) 9.1 TH/MM3 Lymphocytes # (Auto) 1.4 TH/MM3 Monocytes # (Auto) 0.6 TH/MM3 Eosinophils # (Auto) 0.2 TH/MM3 Basophils # (Auto) 0.1 TH/MM3 CBC Comment DIFF FINAL Differential Comment Blood Urea Nitrogen 66 MG/DL Creatinine 10.23 MG/DL Random Glucose 90 MG/DL Calcium Level 8.0 MG/DL Sodium Level 133 MEQ/L Potassium Level 6.7 MEQ/L Chloride Level 95 MEQ/L Carbon Dioxide Level 31.6 MEQ/L Anion Gap 6 MEQ/L Estimat Glomerular Filtration Rate 5 ML/MIN Total Creatine Kinase 69 U/L Troponin I LESS THAN 0.02 NG/ML Lipase 155 U/L Prothrombin Time 11.1 SEC Prothromb Time International Ratio 1.1 RATIO Activated Partial Thromboplast Time 28.7 SEC Differential Diagnosis Differential diagnosis includes CHF, cardiomyopathy, ACS, end-stage renal disease on hemodialysis, pleural effusion, pulmonary edema, GERD, gastritis, pancreatitis. Narrative Course The patient is a 57-year-old female was initially evaluated by the previous physician. Please refer to the initial history, physical, diagnostic evaluation , treatment modality plan. The patient was signed out at 7 AM laboratory evaluation pending. The patient apparently had chest pain and epigastric abdominal pain, multiple risk factors. 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 The previous physician recommends observation to the chest pain center or the medical team. The patient's chest x -ray reveals pulmonary edema. CT the abdomen pelvis reveals cholelithiasis and groundglass infiltrates, likely representing pulmonary edema. The patient's potassium is elevated at 6.7, no evidence of hemolysis. This most likely secondary to end-stage renal disease on hemodialysis. The patient normally goes to dialysis on Mondays, Wednesdays, and Fridays. Her solar engineer is Dr. Ramirez, she has a left upper extremity AV fistula. The patient was administered bicarb, insulin, and D50. A call was placed the patient's solar engineer. She does have chest pain, pulmonary edema, hyperkalemia. The patient will be admitted to the on-call medical service. Her primary physician is Dr. Genao. I discussed the patient with Dr. Suggs, the patient will be dialyzed. The patient will need serial cardiac enzymes and may benefit from cardiology evaluation for her chest pain and shortness of breath with previous nuc med which reveals inferior NE and moderate risk category with multiple risk factors including hypertension, ESRD with HD, hyperlipidemia, and diabetes. Diagnosis Primary Impression: Chest pain Qualified Codes: R07.9 - Chest pain, unspecified Additional Impressions: Hyperkalemia ESRD (end stage renal disease) Admitting Information Admitting Physician Requests: Admit Condition: Stable Paul Reyes MD Dec 29, 2017 07:08
[2017-12-29 07:13] LABS: BICARBONATE 31.6 MEQ/L (21.0-32.0); BLOOD UREA NITROGEN 66 MG/DL (7-18); CHLORIDE 95 MEQ/L (98-107); GLOMERULAR FILTRATION RATE 5 ML/MIN (>89); GLUCOSE,RANDOM 90 MG/DL (74-106); SODIUM (NA) 133 MEQ/L (136-145); TROPONIN I LESS THAN 0.02 NG/ML (0.02-0.05)
[2017-12-29] MEDS ORDERED: LABETALOL HCL 100 MG/20 ML VIAL IV PUSH ONE (07:30)
[2017-12-29] MEDS ORDERED: ASPIRIN 81 MG CHEW TAB CHEW ONE (07:30)
[2017-12-29 07:36] LABS: CREATININE 10.23 MG/DL (0.50-1.00)
[2017-12-29] MEDS ORDERED: INSULIN HUMAN REGULAR 1,000 UNITS/10 ML VIAL IV PUSH ONE (08:00)
[2017-12-29] MEDS ORDERED: DEXTROSE 50% IN WATER 50 ML VIAL(D50) IV PUSH ONE (08:00)
[2017-12-29] MEDS ORDERED: SODIUM BICARBONATE 8.4% SOLN 50 MEQ/50 ML VIAL SLOW IVP ONE (08:00)
[2017-12-29] MEDS ORDERED: DEXTROSE 50% IN WATER 50 ML VIAL(D50) IV PUSH PRN (08:45)
[2017-12-29] MEDS ORDERED: GLUCAGON 1 MG/ML VIAL OTHER PRN (08:45)
[2017-12-29] MEDS ORDERED: SODIUM CHLOR 0.9% 1000 ML INJ 1,000 ML IV PRN (08:55)
[2017-12-29] MEDS ORDERED: SODIUM CHLOR 0.9% 1000 ML INJ 1,000 ML OTHER PRN ×2 (08:55)
[2017-12-29] MEDS ORDERED: MANNITOL 12.5 GM/50 ML VIAL IV PRN (09:00)
[2017-12-29] MEDS ORDERED: NITROGLYCERIN 0.4 MG SL 25 TABS/BTL SL PRN (09:00)
[2017-12-29] MEDS ORDERED: ACETAMINOPHEN 325 MG TAB PO PRN (09:00)
[2017-12-29] MEDS ORDERED: GELATIN 12 MM/7 MM FOAM TOP PRN (09:00)
[2017-12-29] MEDS ORDERED: diphenhydrAMINE HCL 25 MG CAP PO PRN (09:00)
[2017-12-29] MEDS ORDERED: ALBUMIN 25% INJ 100 ML IV PRN (09:00)
[2017-12-29] MEDS ORDERED: HEPARIN SODIUM - IV 10,000 UNITS/10 ML VIAL IV FLUSH PRN (09:00)
[2017-12-29] MEDS ORDERED: EPOETIN ALFA 10,000 UNITS/ML VIAL IV PUSH PRN (09:00)
[2017-12-29] MEDS ORDERED: HEPARIN SODIUM - IV 10,000 UNITS/10 ML VIAL PRN (09:00)
[2017-12-29] MEDS ORDERED: SODIUM CHLORIDE 0.9% FLUSH 10 ML FLUSH IV FLUSH PRN (09:00)
[2017-12-29] MEDS ORDERED: GENTAMICIN SULFATE 20 MG/2 ML VIAL OTHER PRN (09:00)
[2017-12-29] MEDS ORDERED: cloNIDine HCL 0.1 MG TAB PO PRN (09:00)
[2017-12-29] MEDS ORDERED: ONDANSETRON HCL 4 MG/2 ML VIAL IV PUSH PRN (09:00)
--- NOTE | 2017-12-29 09:19 | PD.CONS ---
HPI Service Nephrology Consult Requested By Dr. Santos Reason for Consult ESRD on HD, Hyperkalemia Primary Care Physician Jonh Genao DO History of Present Illness This is out 57 y/o AAF dialysis patient who came to ER for evaluation. She states she went to HD on Friday, felt fine over the weekend but became "sick" last evening with vomiting, no major complaints of pain. Her K was 6.7. She is seen during dialysis, is not in distress. PMH listed below includes anemia, HTN , metabolic bone disorder. (Ladonna Mercedes) Review of Systems Constitutional: COMPLAINS OF: Fatigue, DENIES: Fever Respiratory: DENIES: Shortness of breath Cardiovascular: DENIES: Chest pain, Dyspnea on Exertion, Lower Extremity Edema Gastrointestinal: COMPLAINS OF: Nausea, Vomiting, DENIES: Abdominal pain ( Ladonna Mercedes) Past Family Social History Allergies: Coded Allergies: acetaminophen (Unverified Allergy, Severe, VOMITING, 12/29/17) linezolid (Unverified Allergy, Severe, VOMITING, 12/29/17) piperacillin (Unverified Allergy, Severe, VOMITING, 12/29/17) simvastatin (Unverified Allergy, Severe, VOMITING, 12/29/17) tazobactam (Unverified Allergy, Severe, VOMITING, 12/29/17) oxycodone (Unverified Adverse Reaction, Severe, VOMITING, 12/29/17) Past Medical History ESRD on HD MWF HTN DM type 2 HLD Anxiety CAD Depression Arthritis Anemia of chronic disease Blindness Past Surgical History Appendectomy Left AV fistula CABG bilateral cataract surgery Reported Medications Magic Mouthwash Pediatric/Adult Liq (Lidocaine/Diphenhydr/Alum/Mg/Simeth) 60 Ml Susp 5 Ml SWISH-SWAL ACHS Each 5mL contains: Diphenydramine 4.5mg, Viscous Lidocaine 2% 10mg, Maalox Advanced Regular Strength 2.7ml Pepcid (Famotidine) 20 Mg Tab 20 Mg PO BID Labetalol (Labetalol HCl) 100 Mg Tab 50 Mg PO BID 30 Days check BP prior to taking hold for SBP < 130 and recheck after an hour Levemir Inj (Insulin Detemir) 1,000 unit/ 10 ML Vial 10 Units SQ HS 30 Days check blood sugar prior to taking Jmsavndjhi-Nfxepsklflknb-Ptuvafkh 50-325-40 Mg Tab 1 Tab PO Q6H PRN Norvasc (Amlodipine Besylate) 5 Mg Tab 5 Mg PO DAILY [address] (Duloxetine HCl) 20 Mg Capdr 20 Mg PO DAILY Combigan Opth Drops (Brimonidine-Timolol Opth Drops) 0.2-0.5% Soln 1 Drop EACH EYE Q12HR 14 Days Senna-Plus (Sennosides-Docusate Sodium) 8.6-50 Mg Tab 1 Tab PO DAILY Renvela (Sevelamer Carbonate) 800 Mg Tab 2,400 Mg PO TID Take 3 tabs (2,400mg) three times a day with meals & 1 tab (800mg) with snacks Renal Vitamin (B-Complex W/ C & Folic Acid) 1 Tab 1 Tab PO DAILY Protonix (Pantoprazole Sodium) 40 Mg Tab 40 Mg PO DAILY Keppra (Levetiracetam) 500 Mg Tab 1,000 Mg PO TID Lasix (Furosemide) 80 Mg Tab 80 Mg PO DAILY Plavix (Clopidogrel Bisulfate) 75 Mg Tab 75 Mg PO DAILY Dulcolax DR (Bisacodyl) 5 Mg Tabdr 5 Mg PO BID Lipitor (Atorvastatin Calcium) 10 Mg Tab 10 Mg PO HS Allopurinol 100 Mg Tab 100 Mg PO DAILY Advair Diskus Inh (Fluticasone-Salmeterol Inh) 250-50 Mcg/Blist Aer 1 Puff INH BID Rinse mouth after use. Active Ordered Medications Current Medications Medications (Trade) Dose Ordered Sig/Peter Route Start Time Stop Time Status Last Admin (D50w (Vial) Inj) 50 ml UNSCH PRN IV PUSH 12/29/17 08:45 (Glucagon Inj) 1 mg UNSCH PRN OTHER 12/29/17 08:45 (NovoLOG SUPPLEMENTAL SCALE) 1 ACHS SLIDING SCALE SQ 12/29/17 12:00 Sodium Chloride 1,000 ml @ 0 mls/hr Q0M PRN OTHER 12/29/17 08:55 UNV (Heparin Inj) 8,000 units UNSCH PRN IV FLUSH 12/29/17 09:00 UNV Sodium Chloride 1,000 ml @ 200 mls/hr Q5H PRN IV 12/29/17 08:55 UNV Sodium Chloride 1,000 ml @ 0 mls/hr Q0M PRN OTHER 12/29/17 08:55 UNV (Mannitol Inj) 12.5 gm UNSCH PRN IV 12/29/17 09:00 UNV Albumin Human 100 ml @ 60 mls/hr UNSCH PRN IV 12/29/17 09:00 UNV (NS Flush) 5 ml UNSCH PRN IV FLUSH 12/29/17 09:00 UNV (Heparin Inj) UNSCH PRN .XX 12/29/17 09:00 UNV (Gentamicin Inj) 20 mg UNSCH PRN OTHER 12/29/17 09:00 UNV (Zofran Inj) 4 mg UNSCH PRN IV PUSH 12/29/17 09:00 UNV (Tylenol) 650 mg UNSCH PRN PO 12/29/17 09:00 UNV (Benadryl) 25 mg UNSCH PRN PO 12/29/17 09:00 UNV (Nitrostat Sl) 0.4 mg UNSCH PRN SL 12/29/17 09:00 UNV (Catapres) 0.1 mg UNSCH PRN PO 12/29/17 09:00 UNV (Epogen Inj) 4,000 units UNSCH PRN IV PUSH 12/29/17 09:00 UNV (Gelfoam 12 Mm/7 Mm Top) 1 foam UNSCH PRN TOP 12/29/17 09:00 UNV Family History Non contributory Social History Lives with family Uses walker She is blind, needs assistance Former Smoker No ETOH Full code (Ladonna Mercedes) Physical Exam Vital Signs Vital Signs Date Time Temp Pulse Resp B/P (MAP) Pulse Ox O2 Delivery O2 Flow Rate FiO2 12/29/17 07:44 73 18 162/78 (106) 100 Nasal Cannula 2.00 12/29/17 07:09 79 18 190/88 (122) 96 Nasal Cannula 2.00 12/29/17 07:04 97 Room Air 12/29/17 07:04 100 Room Air 12/29/17 05:55 82 18 194/88 (123) 98 12/29/17 05:55 79 18 100 12/29/17 04:42 98.5 80 18 168/78 (108) 100 Room Air 12/29/17 04:41 Physical Exam GENERAL: Well-nourished, well-developed AAF lying in bed SKIN: Warm and dry. HEAD: Her forehead is swollen EYES: Legally blind NECK: Supple, trachea midline. No JVD or lymphadenopathy. CARDIOVASCULAR: Regular rate and rhythm without murmurs, gallops, or rubs. Pain with palpation and inspiration RESPIRATORY: Breath sounds equal bilaterally. No accessory muscle use. GASTROINTESTINAL: Abdomen soft, non-tender, nondistended. EXTREMITIES: No cyanosis, or edema. AV fistula left arm, accessed during HD NEUROLOGICAL: Awake, alert, and oriented x 3. Non-focal deficit Laboratory Laboratory Tests Test 12/29/17 06:07 12/29/17 06:23 White Blood Count 11.4 Red Blood Count 3.27 Hemoglobin 10.3 Hematocrit 31.1 Mean Corpuscular Volume 94.9 Mean Corpuscular Hemoglobin 31.4 Mean Corpuscular Hemoglobin Concent 33.0 Red Cell Distribution Width 18.6 Platelet Count 278 Mean Platelet Volume 8.7 Neutrophils (%) (Auto) 79.6 Lymphocytes (%) (Auto) 12.0 Monocytes (%) (Auto) 5.6 Eosinophils (%) (Auto) 2.2 Basophils (%) (Auto) 0.6 Neutrophils # (Auto) 9.1 Lymphocytes # (Auto) 1.4 Monocytes # (Auto) 0.6 Eosinophils # (Auto) 0.2 Basophils # (Auto) 0.1 CBC Comment DIFF FINAL Differential Comment Blood Urea Nitrogen 66 Creatinine 10.23 Random Glucose 90 Calcium Level 8.0 Sodium Level 133 Potassium Level 6.7 Chloride Level 95 Carbon Dioxide Level 31.6 Anion Gap 6 Estimat Glomerular Filtration Rate 5 Total Creatine Kinase 69 Troponin I LESS THAN 0.02 Lipase 155 Prothrombin Time 11.1 Prothromb Time International Ratio 1.1 Activated Partial Thromboplast Time 28.7 (Ladonna Mercedes) Result Diagram: 12/29/1760612/29/17606 Imaging Last Impressions Chest X-Ray 12/29/17 06 Signed Impressions: Service Date/Time: Friday, December 29, 2017 06:15 - CONCLUSION: Cardiomegaly with interstitial pulmonary edema. Benjamin Jacobo Jr., MD Abdomen/Pelvis CT 12/29/17 0000 Signed Impressions: Service Date/Time: Friday, December 29, 2017 06:33 - CONCLUSION: 1. No acute abnormality to explain the patient's pain. 2. Cholelithiasis. 3. Tiny bilateral pleural effusions with cardiomegaly and patchy ground glass infiltrates. This likely relates pulmonary edema. Benjamin Jacobo Jr., MD (Ladonna Mercedes) Assessment and Plan Problem List: (1) ESRD (end stage renal disease) ICD Codes: N18.6 - End stage renal disease Status: Chronic Plan: Seen during dialysis today on a 1K, 350 BFR, goal 5L Continue HD MWF as as needed High protein diet ordered Has functioning access left arm Avoid IVF, gadolinium is contraindicated Repeat labs (2) Hyperkalemia ICD Codes: E87.5 - Hyperkalemia Status: Acute Plan: Dialysis on a 1K Low K diet Repeat labs (3) Anemia ICD Codes: D64.9 - Anemia, unspecified Status: Acute Plan: Epogen with dialysis (4) DM2 (diabetes mellitus, type 2) ICD Codes: E11.9 - Type 2 diabetes mellitus without complications Status: Chronic Plan: Insulin as needed, maintain glucose 140-180 mg/dL (5) HTN (hypertension) ICD Codes: I10 - Essential (primary) hypertension Status: Chronic Plan: Resume home medications, titrate as needed (6) Metabolic bone disease ICD Codes: E88.9 - Metabolic disorder, unspecified; M90.80 - Osteopathy in diseases classified elsewhere, unspecified site Status: Acute Plan: Renvela has been resumed Intermittently follow phosphorus level. (Ladonna Mercedes) Assessment and Plan patient was seen and examined. Seen during dialysis: on 1K, UF goal is 5 liters. Admitted for chest pain. Currently she denies chest pain. She can be discharged from renal standpoint. (Sai Suggs MD) Ladonna Mercedes Dec 29, 2017 09:19 Sai Suggs MD Dec 29, 2017 09:53
[2017-12-29] MEDS: INSULIN ASPART SUPPLEMENTAL SCALE SQ SCH ×3 (12:00→23:15)
--- NOTE | 2017-12-29 12:39 | HHI.HP ---
[facility] Primary Care Physician John Genao, Admission Diagnosis Chest pain, hyperkalemia, ESRD on HD Diagnoses: (1) Chest pain in adult Diagnosis: Principal Chief Complaint: chest pain Travel History International Travel<30 Days: No Contact w/Intl Traveler <30 Da: No Traveled to Known Affected Are: No History of Present Illness patient is a 57 y/o female with history of ESRD-on HD,hypertension, diabetes mellitus, who presented to ER with chest pain. patient is not a good historian. she says that the pain started yesterday. pain was in lower chest. pain was associated with some nausea and sob. she was found to be hyperkalemia at the time of presentation to ER and now she's having her HD. she was pain free at the time of my evaluation. of note she had a stress test about six months ago with no ischemia. Review of Systems Constitutional: DENIES: Fever, Weight loss, Chills, Night Sweats Eyes: DENIES: Blurred vision, Diplopia, Vision loss, Double Vision Ears, nose, mouth, throat: DENIES: Tinnitus, Vertigo, Throat pain, Epistaxis Respiratory: COMPLAINS OF: Shortness of breath, DENIES: Apneas, Cough, Snoring , Wheezing, Hemoptysis, Sputum production Cardiovascular: COMPLAINS OF: Chest pain, DENIES: Palpitations, Syncope, Dyspnea on Exertion, PND, Lower Extremity Edema, Orthopnea, Claudication Gastrointestinal: COMPLAINS OF: Nausea, DENIES: Abdominal pain, Black stools, Bloody stools, Constipation, Diarrhea, Vomiting, Difficulty Swallowing, Anorexia Genitourinary: DENIES: Urinary frequency, Urgency, Hematuria, Dysuria Musculoskeletal: DENIES: Joint pain, Muscle aches, Stiffness, Joint Swelling Integumentary: DENIES: Rash Neurologic: DENIES: Abnormal gait, Headache, Localized weakness, Paresthesias, Seizures, Speech Problems, Tremor, Poor Balance Psychiatric: DENIES: Anxiety, Confusion, Mood changes, Depression, Hallucinations, Agitation, Suicidal Ideation, Homicidal Ideation, Delusions Past Family Social History Past Medical History ESRD on HD MWF Dr Suggs HTN DM type 2 HLD Anxiety Depression Arthritis Anemia of chronic disease Past Surgical History Past Surgical History Appendectomy Left AV fistula CABG bilateral cataract surgery Reported Medications Magic Mouthwash Pediatric/Adult Liq (Lidocaine/Diphenhydr/Alum/Mg/Simeth) 60 Ml Susp 5 Ml SWISH-SWAL ACHS Each 5mL contains: Diphenydramine 4.5mg, Viscous Lidocaine 2% 10mg, Maalox Advanced Regular Strength 2.7ml Pepcid (Famotidine) 20 Mg Tab 20 Mg PO BID Labetalol (Labetalol HCl) 100 Mg Tab 50 Mg PO BID 30 Days check BP prior to taking hold for SBP < 130 and recheck after an hour Levemir Inj (Insulin Detemir) 1,000 unit/ 10 ML Vial 10 Units SQ HS 30 Days check blood sugar prior to taking Kvrdwyzeau-Ulmmedslbnakm-Aptehnno 50-325-40 Mg Tab 1 Tab PO Q6H PRN Norvasc (Amlodipine Besylate) 5 Mg Tab 5 Mg PO DAILY [address] (Duloxetine HCl) 20 Mg Capdr 20 Mg PO DAILY Combigan Opth Drops (Brimonidine-Timolol Opth Drops) 0.2-0.5% Soln 1 Drop EACH EYE Q12HR 14 Days Senna-Plus (Sennosides-Docusate Sodium) 8.6-50 Mg Tab 1 Tab PO DAILY Renvela (Sevelamer Carbonate) 800 Mg Tab 2,400 Mg PO TID Take 3 tabs (2,400mg) three times a day with meals & 1 tab (800mg) with snacks Renal Vitamin (B-Complex W/ C & Folic Acid) 1 Tab 1 Tab PO DAILY Protonix (Pantoprazole Sodium) 40 Mg Tab 40 Mg PO DAILY Keppra (Levetiracetam) 500 Mg Tab 1,000 Mg PO TID Lasix (Furosemide) 80 Mg Tab 80 Mg PO DAILY Plavix (Clopidogrel Bisulfate) 75 Mg Tab 75 Mg PO DAILY Dulcolax DR (Bisacodyl) 5 Mg Tabdr 5 Mg PO BID Lipitor (Atorvastatin Calcium) 10 Mg Tab 10 Mg PO HS Allopurinol 100 Mg Tab 100 Mg PO DAILY Advair Diskus Inh (Fluticasone-Salmeterol Inh) 250-50 Mcg/Blist Aer 1 Puff INH BID Rinse mouth after use. Allergies: Coded Allergies: acetaminophen (Unverified Allergy, Severe, VOMITING, 12/29/17) linezolid (Unverified Allergy, Severe, VOMITING, 12/29/17) piperacillin (Unverified Allergy, Severe, VOMITING, 12/29/17) simvastatin (Unverified Allergy, Severe, VOMITING, 12/29/17) tazobactam (Unverified Allergy, Severe, VOMITING, 12/29/17) oxycodone (Unverified Adverse Reaction, Severe, VOMITING, 12/29/17) Active Ordered Medications Inpatient Medications Acetaminophen (Tylenol) 650 mg UNSCH PRN PO for headach, pain, temp > 101F; Start 12/29/17 at 09:00 Albumin Human 100 ml @ 60 mls/hr UNSCH PRN IV WITH DIALYSIS; Start 12/29/17 at 09:00 Aspirin (Aspirin Chew) 162 mg ONCE ONCE CHEW Last administered on 12/29/17at 07 :38; Start 12/29/17 at 07:30; Stop 12/29/17 at 07:31; Status DC Clonidine (Catapres) 0.1 mg UNSCH PRN PO for BP > 180/100 X 2 readings; Start 12/29/17 at 09:00 Dextrose (D50w (Vial) Inj) 50 ml UNSCH PRN IV PUSH HYPOGLYCEMIA-SEE COMMENTS; Start 12/29/17 at 08:45 Diphenhydramine HCl (Benadryl) 25 mg UNSCH PRN PO for hives/itching/anaphylaxis ; Start 12/29/17 at 09:00 Epoetin Francisco (Epogen Inj) 4,000 units UNSCH PRN IV PUSH WITH DIALYSIS; Start at 09:00 Gelatin (Gelfoam 12 Mm/7 Mm Top) 1 foam UNSCH PRN TOP SEE LABEL COMMENTS; Start 12/29/17 at 09:00 Gentamicin Sulfate (Gentamicin Inj) 20 mg UNSCH PRN OTHER WITH DIALYSIS; Start 12/29/17 at 09:00 Glucagon (Glucagon Inj) 1 mg UNSCH PRN OTHER HYPOGLYCEMIA-SEE COMMENTS; Start 12/29/17 at 08:45 Heparin Sodium (Porcine) (Heparin Inj) UNSCH PRN .XX WITH DIALYSIS; Start 10/06 at 09:00 Insulin Aspart (NovoLOG SUPPLEMENTAL SCALE) 1 ACHS SLIDING SCALE SQ ; Start 10/06 at 12:00 Insulin Human Regular (NovoLIN R INJ) 10 units ONCE ONCE IV PUSH Last administered on 12/29/17at 08:02; Start 12/29/17 at 08:00; Stop 12/29/17 at 08:01 ; Status DC Labetalol HCl (Trandate Inj) 10 mg ONCE ONCE IV PUSH Last administered on 12/29at 07:37; Start 12/29/17 at 07:30; Stop 12/29/17 at 07:31; Status DC Mannitol (Mannitol Inj) 12.5 gm UNSCH PRN IV WITH DIALYSIS; Start 12/29/17 at 09:00 Nitroglycerin (Nitrostat Sl) 0.4 mg UNSCH PRN SL CHEST PAIN; Start 12/29/17 at 09:00 Ondansetron HCl (Zofran Inj) 4 mg UNSCH PRN IV PUSH WITH DIALYSIS; Start at 09:00 Sodium Bicarbonate (Sodium Bicarbonate 8.4% Inj) 50 meq ONCE ONCE SLOW IVP Last administered on 12/29/17at 08:02; Start 12/29/17 at 08:00; Stop 12/29/17 at 08:01; Status DC Sodium Chloride (NS Flush) 5 ml UNSCH PRN IV FLUSH WITH DIALYSIS; Start at 09:00 Social History no smoking or drinking. Physical Exam Vital Signs Vital Signs Date Time Temp Pulse Resp B/P (MAP) Pulse Ox O2 Delivery O2 Flow Rate FiO2 12/29/17 07:44 73 18 162/78 (106) 100 Nasal Cannula 2.00 12/29/17 07:09 79 18 190/88 (122) 96 Nasal Cannula 2.00 12/29/17 07:04 97 Room Air 12/29/17 07:04 100 Room Air 12/29/17 05:55 82 18 194/88 (123) 98 12/29/17 05:55 79 18 100 12/29/17 04:42 98.5 80 18 168/78 (108) 100 Room Air 12/29/17 04:41 Physical Exam GENERAL: This is a well-nourished, well-developed patient, in no apparent distress. SKIN: No rashes, ecchymoses or lesions. Cool and dry. HEAD: Atraumatic. Normocephalic. No temporal or scalp tenderness. EYES: Pupils equal round and reactive. Extraocular motions intact. No scleral icterus. No injection or drainage. ENT: Nose without bleeding, purulent drainage or septal hematoma. Throat without erythema, tonsillar hypertrophy or exudate. Uvula midline. Airway patent. NECK: Trachea midline. No JVD or lymphadenopathy. Supple, nontender, no meningeal signs. CARDIOVASCULAR: Regular rate and rhythm without murmurs, gallops, or rubs. RESPIRATORY: Clear to auscultation. Breath sounds equal bilaterally. No wheezes , rales, or rhonchi. GASTROINTESTINAL: Abdomen soft, non-tender, nondistended. No hepato-splenomegaly , or palpable masses. No guarding. MUSCULOSKELETAL: Extremities without clubbing, cyanosis, or edema. No joint tenderness, effusion, or edema noted. No calf tenderness. Negative Homans sign bilaterally. NEUROLOGICAL: Awake and alert. Cranial nerves II through XII intact. Motor and sensory grossly within normal limits. Five out of 5 muscle strength in all muscle groups. Normal speech. Laboratory Laboratory Tests Test 12/29/17 06:07 12/29/17 06:23 White Blood Count 11.4 Red Blood Count 3.27 Hemoglobin 10.3 Hematocrit 31.1 Mean Corpuscular Volume 94.9 Mean Corpuscular Hemoglobin 31.4 Mean Corpuscular Hemoglobin Concent 33.0 Red Cell Distribution Width 18.6 Platelet Count 278 Mean Platelet Volume 8.7 Neutrophils (%) (Auto) 79.6 Lymphocytes (%) (Auto) 12.0 Monocytes (%) (Auto) 5.6 Eosinophils (%) (Auto) 2.2 Basophils (%) (Auto) 0.6 Neutrophils # (Auto) 9.1 Lymphocytes # (Auto) 1.4 Monocytes # (Auto) 0.6 Eosinophils # (Auto) 0.2 Basophils # (Auto) 0.1 CBC Comment DIFF FINAL Differential Comment Blood Urea Nitrogen 66 Creatinine 10.23 Random Glucose 90 Calcium Level 8.0 Sodium Level 133 Potassium Level 6.7 Chloride Level 95 Carbon Dioxide Level 31.6 Anion Gap 6 Estimat Glomerular Filtration Rate 5 Total Creatine Kinase 69 Troponin I LESS THAN 0.02 Lipase 155 Prothrombin Time 11.1 Prothromb Time International Ratio 1.1 Activated Partial Thromboplast Time 28.7 Result Diagram: 12/29/1760612/29/17606 Imaging Last Impressions Chest X-Ray 12/29/17 06 Signed Impressions: Service Date/Time: Friday, December 29, 2017 06:15 - CONCLUSION: Cardiomegaly with interstitial pulmonary edema. Benjamin Jacobo Jr., MD Abdomen/Pelvis CT 12/29/17 0000 Signed Impressions: Service Date/Time: Friday, December 29, 2017 06:33 - CONCLUSION: 1. No acute abnormality to explain the patient's pain. 2. Cholelithiasis. 3. Tiny bilateral pleural effusions with cardiomegaly and patchy ground glass infiltrates. This likely relates pulmonary edema. Benjamin Jacobo Jr., MD EKG; sinus rhythm with no acute ST-T changes. Caprini VTE Risk Assessment Caprini VTE Risk Assessment: Mod/High Risk (score >= 2) Caprini Risk Assessment Model Point Value = 1 Point Value = 2 Point Value = 3 Point Value = 5 Age 41-60 Minor surgery BMI > 25 kg/m2 Swollen legs Varicose veins or History of unexplained or recurrent spontaneous Oral contraceptives or hormone replacement Sepsis (< 1 month) Serious lung disease, including pneumonia (< 1 month) Abnormal pulmonary function Acute myocardial infarction Congestive heart failure (< 1 month) History of inflammatory bowel disease Medical patient at bed rest Age 61-74 Arthroscopic surgery Major open surgery (> 45 min) Laparoscopic surgery (> 45 min) Malignancy Confined to bed (> 72 hours) Immobilizing plaster cast Central venous access Age >= 75 History of VTE Family history of VTE Factor V Leiden Prothrombin [id number] Lupus anticoagulant Anticardiolipin antibodies Elevated serum homocysteine Heparin-induced thrombocytopenia Other congenital or acquired thrombophilia Stroke (< 1 month) Elective arthroplasty Hip, pelvis, or leg fracture Acute spinal cord injury (< 1 month) Prophylaxis Regimen Total Risk Factor Score Risk Level Prophylaxis Regimen 0-1 Low Early ambulation 2 Moderate Order ONE of the following: *Sequential Compression Device (SCD) *Heparin 5000 units SQ BID 3-4 Higher Order ONE of the following medications: *Heparin 5000 units SQ TID *Enoxaparin/Lovenox 40 mg SQ daily (WT < 150 kg, CrCl > 30 mL/min) *Enoxaparin/Lovenox 30 mg SQ daily (WT < 150 kg, CrCl > 10-29 mL/min) *Enoxaparin/Lovenox 30 mg SQ BID (WT < 150 kg, CrCl > 30 mL/min) AND/OR *Sequential Compression Device (SCD) 5 or more Highest Order ONE of the following medications: *Heparin 5000 units SQ TID (Preferred with Epidurals) *Enoxaparin/Lovenox 40 mg SQ daily (WT < 150 kg, CrCl > 30 mL/min) *Enoxaparin/Lovenox 30 mg SQ daily (WT < 150 kg, CrCl > 10-29 mL/min) *Enoxaparin/Lovenox 30 mg SQ BID (WT < 150 kg, CrCl > 30 mL/min) AND *Sequential Compression Device (SCD) Assessment and Plan Assessment and Plan A/P - chest pain with history of CAD -pulmonary edema EKG with no acute ST-T changes and first troponin negative- is currently chest pain free continue Plavix, Statin and BB. of note had a stress test about six months ago with no ischemia -ESRD- on HD with hyperkalemia received insulin and sodium Bicarbonate- nephrology consulted and had her HD today; will repeat BMP. -diabetes mellitus ; resume her insulin regimen and start on accu-check with SSI -hypertension; resume home meds- will monitor and adjust the regimen as needed. -dyslipidemia; continue statin - history of GI bleed- had colonoscopy about two months ago with ulcer in the cecum -DVT prophylaxis with SCD's Code Status dc home tomorrow if stable and serial troponin negative - pending BMP this evening. Discussed Condition With ER physician and the patient. Manuel Santos MD Dec 29, 2017 12:39
[2017-12-29] MEDS: SEVELAMER CARBONATE 800 MG TAB PO SCH ×2 (15:38→19:42)
[2017-12-29] MEDS: levETIRAcetam 500 MG TAB PO SCH ×2 (15:40→19:42)
[2017-12-29 17:12] LABS: TROPONIN I LESS THAN 0.02 NG/ML (0.02-0.05)
--- NOTE | 2017-12-29 20:18 | EKG ---
Date Performed: 12/29/2017 Time Performed: 04:47:41 PTAGE: 57 years EKG: NORMAL Sinus rhythm MARKED LEFT AXIS DEVIATION MODERATE INTRAVENTRICULAR CONDUCTION DELAY NONSPECIFIC T-WAVE ABNORMALITY POSSIBLE LEFT VENTRICULAR HYPERTROPHY Since the previous tracing, no significant serial change noted ABNORMAL ECG NO PREVIOUS TRACING DOCTOR: Lulú Lux Interpretating Date/Time 12/29/2017 20:16:50
[2017-12-29] MEDS ORDERED: INSULIN DETEMIR 100 UNITS/ML VIAL SQ SCH (21:00)
[2017-12-29] MEDS ORDERED: ATORVASTATIN 10 MG TAB PO SCH (21:00)
[2017-12-29] MEDS ORDERED: NON-FORMULARY DRUG (Brimonidine-Timolol Opth Drops (Combigan Opth Drops) 1 DROP) EACH EYE SCH (21:00)
[2017-12-29 22:01] LABS: BICARBONATE 32.1 MEQ/L (21.0-32.0); BLOOD UREA NITROGEN 41 MG/DL (7-18); CALCIUM 8.4 MG/DL (8.5-10.1); CHLORIDE 93 MEQ/L (98-107); CREATININE 7.47 MG/DL (0.50-1.00); GLOMERULAR FILTRATION RATE 7 ML/MIN (>89); GLUCOSE,RANDOM 77 MG/DL (74-106); SODIUM (NA) 136 MEQ/L (136-145)
[2017-12-29 22:08] LABS: TROPONIN I LESS THAN 0.02 NG/ML (0.02-0.05)
[2017-12-29] MEDS: BUDESONIDE-FORMOTEROL 160/4.5 MCG INHALER INH SCH (23:13)
[2017-12-29] MEDS: TIMOLOL MALEATE 0.5% OPHT SOLN 5 ML BTL EACH EYE SCH (23:14)
[2017-12-29] MEDS: BRIMONIDINE TARTRATE 0.2% OPHT SOLN 5 ML BTL EACH EYE SCH (23:14)
[2017-12-29] MEDS: LABETALOL HCL 100 MG TAB PO SCH (23:14)
[2017-12-30 06:31] VITALS: BP 143/67; PULSE 87; RESP 18; TEMP 98; O2SAT 97
[2017-12-30 07:00] VITALS: PULSE 79
[2017-12-30 08:52] VITALS: BP 105/55; PULSE 79; RESP 16; TEMP 98.1; O2SAT 100
[2017-12-30] MEDS ORDERED: PANTOPRAZOLE SOD 40 MG DELAYED RELEASE TAB PO SCH (09:00)
[2017-12-30] MEDS ORDERED: VITAMIN B CMPLX/VITC/FOLIC AC CAP PO SCH (09:00)
[2017-12-30] MEDS ORDERED: FUROSEMIDE 80 MG TAB PO SCH (09:00)
[2017-12-30] MEDS ORDERED: DULoxetine HCl DR 20 MG CAP PO SCH (09:00)
[2017-12-30] MEDS ORDERED: CLOPIDOGREL 75 MG TAB PO SCH (09:00)
[2017-12-30] MEDS ORDERED: ALLOPURINOL 100 MG TAB PO SCH (09:00)
[2017-12-30] MEDS ORDERED: amLODIPine BESYLATE 5 MG TAB PO SCH (09:00)
[2017-12-30] MEDS: INSULIN ASPART SUPPLEMENTAL SCALE SQ SCH (09:20)
[2017-12-30] MEDS: SEVELAMER CARBONATE 800 MG TAB PO SCH (09:21)
[2017-12-30] MEDS: levETIRAcetam 500 MG TAB PO SCH (09:21)
[2017-12-30] MEDS: LABETALOL HCL 100 MG TAB PO SCH (09:21)
--- NOTE | 2017-12-30 09:21 | HHI.DS ---
Discharge Summary Admission Date Dec 29, 2017 at 08:38 Discharge Date: Jan 01, 2018 Admitting Diagnosis Chest pain, hyperkalemia, ESRD on HD (1) Chest pain in adult ICD Code: R07.9 - Chest pain, unspecified Diagnosis: Principal Status: Acute Procedures none Brief History - From Admission patient is a 57 y/o female with history of ESRD-on HD,hypertension, diabetes mellitus, who presented to ER with chest pain. patient is not a good historian. she says that the pain started yesterday. pain was in lower chest. pain was associated with some nausea and sob. she was found to be hyperkalemia at the time of presentation to ER and now she's having her HD. she was pain free at the time of my evaluation. of note she had a stress test about six months ago with no ischemia. CBC/BMP: 12/29/17 0607 12/29/172049 Significant Findings Laboratory Tests Test 12/29/17 06:07 12/29/17 06:23 12/29/17 15:30 12/29/17 20:50 White Blood Count 11.4 TH/MM3 (4.0-11.0) Red Blood Count 3.27 MIL/MM3 (4.00-5.30) Hemoglobin 10.3 GM/DL (11.6-15.3) Hematocrit 31.1 % (35.0-46.0) Red Cell Distribution Width 18.6 % (11.6-17.2) Neutrophils (%) (Auto) 79.6 % (16.0-70.0) Neutrophils # (Auto) 9.1 TH/MM3 (1.8-7.7) Blood Urea Nitrogen 66 MG/DL (7-18) 41 MG/DL (7-18) Creatinine 10.23 MG/DL (0.50-1.00) 7.47 MG/DL (0.50-1.00) Calcium Level 8.0 MG/DL (8.5-10.1) 8.4 MG/DL (8.5-10.1) Sodium Level 133 MEQ/L (136-145) Potassium Level 6.7 MEQ/L (3.5-5.1) Chloride Level 95 MEQ/L (98-107) 93 MEQ/L (98-107) Estimat Glomerular Filtration Rate 5 ML/MIN (>89) 7 ML/MIN (>89) Troponin I LESS THAN 0.02 NG/ML LESS THAN 0.02 NG/ML LESS THAN 0.02 NG/ML Carbon Dioxide Level 32.1 MEQ/L (21.0-32.0) Imaging Last Impressions Chest X-Ray 12/29/17 0600 Signed Impressions: Service Date/Time: Friday, December 29, 2017 06:15 - CONCLUSION: Cardiomegaly with interstitial pulmonary edema. Benjamin Jacobo Jr., MD Abdomen/Pelvis CT 12/29/17 0000 Signed Impressions: Service Date/Time: Friday, December 29, 2017 06:33 - CONCLUSION: 1. No acute abnormality to explain the patient's pain. 2. Cholelithiasis. 3. Tiny bilateral pleural effusions with cardiomegaly and patchy ground glass infiltrates. This likely relates pulmonary edema. Benjamin Jacobo Jr., MD PE at Discharge GENERAL: This is a well-nourished, well-developed patient, in no apparent distress. SKIN: No rashes, ecchymoses or lesions. Cool and dry. HEAD: Atraumatic. Normocephalic. No temporal or scalp tenderness. EYES: Pupils equal round and reactive. Extraocular motions intact. No scleral icterus. No injection or drainage. ENT: Nose without bleeding, purulent drainage or septal hematoma. Throat without erythema, tonsillar hypertrophy or exudate. Uvula midline. Airway patent. NECK: Trachea midline. No JVD or lymphadenopathy. Supple, nontender, no meningeal signs. CARDIOVASCULAR: Regular rate and rhythm without murmurs, gallops, or rubs. RESPIRATORY: Clear to auscultation. Breath sounds equal bilaterally. No wheezes , rales, or rhonchi. GASTROINTESTINAL: Abdomen soft, non-tender, nondistended. No hepato-splenomegaly , or palpable masses. No guarding. MUSCULOSKELETAL: Extremities without clubbing, cyanosis, or edema. No joint tenderness, effusion, or edema noted. No calf tenderness. Negative Homans sign bilaterally. NEUROLOGICAL: Awake and alert. Cranial nerves II through XII intact. Motor and sensory grossly within normal limits. Five out of 5 muscle strength in all muscle groups. Normal speech. Pt update on day of discharge In bed feels better Had HD yesterday Seen by nephro cleared for DC' Adviced compliance Hospital Course - chest pain with history of CAD -pulmonary edema EKG with no acute ST-T changes and first troponin negative- is currently chest pain free continue Plavix, Statin and BB. of note had a stress test about six months ago with no ischemia -ESRD- on HD with hyperkalemia received insulin and sodium Bicarbonate- nephrology consulted and had her HD -diabetes mellitus, resume her insulin regimen and start on accu-check with SSI -hypertension; resume home meds- will monitor and adjust the regimen as needed. -dyslipidemia; continue statin - history of GI bleed- had colonoscopy about two months ago with ulcer in the cecum -DVT prophylaxis with SCD's Had HD , cleared by nephro for DC.Patient improved, she was dc home in stable condition to follow up as OP with PCP and consultants Pt Condition on Discharge: Stable Discharge Disposition: Discharge Home Discharge Time: > 30 minutes Discharge Instructions DIET: Follow Instructions for: Heart Healthy Diet, Dialysis Diet Activities you can perform: Weight Bearing as Adrián Follow up Referrals: Nephrology - 2-3 Days PCP Follow-up - 1 Week Continued Medications: Allopurinol (Allopurinol) 100 Mg Tab 100 MG PO DAILY for Gout, #30 TAB 0 Refills Amlodipine (Norvasc) 5 Mg Tab 5 MG PO DAILY for 30 Days, TAB Atorvastatin (Lipitor) 10 Mg Tab 10 MG PO HS for Cholesterol Management, #30 TAB 0 Refills B-Complex W/ C & Folic Acid (Renal Vitamin) 1 Tab 1 TAB PO DAILY, TAB Brimonidine-Timolol Opth Drops (Combigan Opth Drops) 0.2-0.5% Soln 1 DROP EACH EYE Q12HR for Glaucoma for 14 Days, BOTTLE 0 Refills Jvyomcadqv-Diejsguamhejw-Jyqwdxob (Ctjrzjtwpi-Qqqiuxorqcnye-Rhsohtzc) 50-325-40 Mg Tab 1 TAB PO Q6H PRN for headache , #20 TAB Clopidogrel (Plavix) 75 Mg Tab 75 MG PO DAILY for Blood Clot Prevention, #30 TAB [address] (Cymbalta DR) 20 Mg Capdr 20 MG PO DAILY, #30 CAP 0 Refills Famotidine (Pepcid) 20 Mg Tab 20 MG PO BID, #20 TAB 0 Refills Fluticasone-Salmeterol Inh (Advair Diskus Inh) 250-50 Mcg/Blist Aer 1 PUFF INH BID, #1 INHALER 0 Refills Rinse mouth after use. Furosemide (Lasix) 80 Mg Tab 80 MG PO DAILY, #30 TAB 0 Refills Insulin Detemir Inj (Levemir Inj) 1,000 unit/ 10 ML Vial 10 UNITS SQ HS for 30 Days, INJECTION check blood sugar prior to taking Labetalol (Labetalol) 100 Mg Tab 50 MG PO BID for 30 Days, TAB check BP prior to taking hold for SBP < 130 and recheck after an hour Levetiracetam (Keppra) 500 Mg Tab 1000 MG PO TID for Control Seizures, #60 TAB 0 Refills Pantoprazole (Protonix) 40 Mg Tab 40 MG PO DAILY for Reflux, #30 TAB 0 Refills Sennosides-Docusate Sodium (Senna-Plus) 8.6-50 Mg Tab 1 TAB PO DAILY for Constipation, TAB 0 Refills Sevelamer Carbonate (Renvela) 800 Mg Tab 2400 MG PO TID for Control phosphorous levels, #90 TAB 0 Refills Take 3 tabs (2,400mg) three times a day with meals & 1 tab (800mg) with snacks Susan Sinclair MD Dec 30, 2017 09:21
[2017-12-30] MEDS: BUDESONIDE-FORMOTEROL 160/4.5 MCG INHALER INH SCH (09:22)
[2017-12-30] MEDS: TIMOLOL MALEATE 0.5% OPHT SOLN 5 ML BTL EACH EYE SCH (09:22)
[2017-12-30] MEDS: BRIMONIDINE TARTRATE 0.2% OPHT SOLN 5 ML BTL EACH EYE SCH (09:22)
--- NOTE | 2017-12-30 10:20 | HHI.NPPN ---
Subjective Renal Failure: Chronic, End Stage Renal Disease Interval History Doing well. No CP reported. 5L UF yesterday with HD. (Ladonna Mercedes) Objective Data Data Vital Signs Date Time Temp Pulse Resp B/P (MAP) Pulse Ox O2 Delivery O2 Flow Rate FiO2 12/30/17 08:52 98.1 79 16 105/55 (72) 100 Manual Cuff/Auscultation 12/30/17 06:31 98.0 87 18 143/67 (92) 97 12/29/17 23:31 98.1 89 19 119/58 (78) 100 12/29/17 20:30 98.5 87 19 114/55 (74) 98 12/29/17 20:00 98 Nasal Cannula 2.00 12/29/17 15:26 174/82 (112) 12/29/17 15:14 97.8 81 18 203/96 (131) 100 12/29/17 13:50 97.6 81 18 136/70 (92) 100 (Ladonna Mercedes) -: 12/29/17 0607 12/29/17 2050 Imaging Last 72 hours Impressions Chest X-Ray 12/29/17 0600 Signed Impressions: Service Date/Time: Friday, December 29, 2017 06:15 - CONCLUSION: Cardiomegaly with interstitial pulmonary edema. Benjamin Jacobo Jr., MD Abdomen/Pelvis CT 12/29/17 0000 Signed Impressions: Service Date/Time: Friday, December 29, 2017 06:33 - CONCLUSION: 1. No acute abnormality to explain the patient's pain. 2. Cholelithiasis. 3. Tiny bilateral pleural effusions with cardiomegaly and patchy ground glass infiltrates. This likely relates pulmonary edema. Benjamin Jacobo Jr., MD (Ladonna Mercedes) Physical Exam General Appearance: Well Developed, No Acute Distress, Comfortable (Ladonna Mercedes) Pulmonary Resp Exam: Clear Bilaterally, Breath Sounds Equal (Ladonna Mercedes) Cardiology CV Exam: Regular, Normal Sinus Rhythm, Good Perfusion (Ladonna Mercedes) Gastrointestinal/Abdomen GI Exam: Soft, Non-Tender, Bowel Sounds Present (Ladonna Mercedes) Musculoskeletal MS Exam: Joints Intact, Normal Tone (Ladonna Mercedes) Integumentary Skin Exam: Clear, Warm, Dry, Intact (Ladonna Mercedes) Extremeties Extremities Exam: No Edema, Pedal Pulses Palpable (Ladonna Mercedes) Neurologic Neuro Exam: Alert, Awake, Oriented, Speech Clear, Moving All Extremities (Ladonna Mercedes) Psychiatric Psych Exam: Appropriate Responses (Ladonna Mercedes) Assessment/Plan Discussed Condition With: Patient Assessment Summary: Anemia of CKD, End Stage Renal Disease Problem List: (1) ESRD (end stage renal disease) ICD Codes: N18.6 - End stage renal disease Status: Chronic Plan: Continue HD MWF, 5L UF yesterday High protein diet ordered Has functioning access left arm Avoid IVF, gadolinium is contraindicated cleared for discharge, has HD arranged outpatient (2) Hyperkalemia ICD Codes: E87.5 - Hyperkalemia Status: Acute Plan: Improved with HD (3) Anemia ICD Codes: D64.9 - Anemia, unspecified Status: Acute Plan: Epogen with dialysis (4) DM2 (diabetes mellitus, type 2) ICD Codes: E11.9 - Type 2 diabetes mellitus without complications Status: Chronic Plan: Insulin as needed, maintain glucose 140-180 mg/dL (5) HTN (hypertension) ICD Codes: I10 - Essential (primary) hypertension Status: Chronic Plan: Continue home medications, titrate as needed (6) Metabolic bone disease ICD Codes: E88.9 - Metabolic disorder, unspecified; M90.80 - Osteopathy in diseases classified elsewhere, unspecified site Status: Acute Plan: Renvela with meals (Ladonna Mercedes) Plan patient was seen and examined. Agree with above assessment and plan. Cleared for discharge from renal standpoint. (Sai Suggs MD) Ladonna Mercedes Dec 30, 2017 10:20 Sai Suggs MD Dec 30, 2017 10:55
[2017-12-30 11:03] VITALS: BP 101/58; PULSE 75; RESP 16; TEMP 98; O2SAT 98
[2017-12-30 11:30] VITALS: PULSE 76
--- NOTE | 2017-12-30 20:13 | EKG ---
Date Performed: 12/29/2017 Time Performed: 16:33:43 PTAGE: 57 years EKG: Sinus rhythm POSSIBLE LEFT ATRIAL ENLARGEMENT MARKED LEFT AXIS DEVIATION MODERATE T-WAVE ABNORMALITY ABNORMAL ECG PREVIOUS TRACING : 12/29/2017 04.47 Since the previous tracing, no significant change noted DOCTOR: Clarence Mata Interpretating Date/Time 12/30/2017 20:13:49
== END 2017-12-30 13:29 | disposition home or self-care (01) ==
LOC: NEPC 04:24 → NEDA 08:38 → NEPGCP 12:53
PROVIDERS: ADMIT Hospitalist; ATTEND Hospitalist
DX: R07.89 Other chest pain (principal); I25.10 Atherosclerotic heart disease of native coronary artery without angina pectoris; J81.1 Chronic pulmonary edema; E87.5 Hyperkalemia; I13.11 Hypertensive heart and chronic kidney disease without heart failure, with stage 5 chronic kidney disease, or end stage renal disease; E11.22 Type 2 diabetes mellitus with diabetic chronic kidney disease; I51.7 Cardiomegaly; N18.6 End stage renal disease; D63.1 Anemia in chronic kidney disease; R94.31 Abnormal electrocardiogram [ECG] [EKG]; E78.00 Pure hypercholesterolemia, unspecified; E88.89 Other specified metabolic disorders; K80.20 Calculus of gallbladder without cholecystitis without obstruction; J90 Pleural effusion, not elsewhere classified; F41.9 Anxiety disorder, unspecified; F32.9 Major depressive disorder, single episode, unspecified; H54.7 Unspecified visual loss; M19.90 Unspecified osteoarthritis, unspecified site; Z95.1 Presence of aortocoronary bypass graft; Z79.899 Other long term (current) drug therapy; Z99.2 Dependence on renal dialysis; Z87.891 Personal history of nicotine dependence
CPT/HCPCS: 71045; 74176; 80048; 82550; 82948; 83690; 84132; 84484; 85025; 85610; 85730; 93005; 96372; 96374; 96375; 99285; G0257; G0378; J1815; J2405; 76937; 90935

== ENCOUNTER 2018-01-15 09:53 | Inpatient (IN) | payer MEDICARE, MEDICAID ==
[~2018-01-15] VITALS: Ht 167.6 cm; Wt 90.0 kg
[2018-01-15 10:27] VITALS: BP 101/59; PULSE 131; RESP 21; TEMP 98.1; O2SAT 100
[2018-01-15] MEDS: SODIUM CHLORIDE 0.9% FLUSH 10 ML FLUSH IVF PRN ×2 (10:43→13:15)
[2018-01-15] MEDS ORDERED: SODIUM CHLORID 0.9% 500 ML INJ 500 ML IV ONE (10:45)
--- NOTE | 2018-01-15 10:45 | PD ---
HPI Chief Complaint: Chest Pain Time Seen by Provider: 10:31 Travel History International Travel<30 days: No Contact w/Intl Traveler<30days: No History of Present Illness HPI 57-year-old female patient with history of end-stage renal disease, hypertension , on dialysis with last dialysis yesterday, few days. She has been nauseous, and while she was waiting to get her room in the ER, she started complaining of epigastric pains and substernal chest pains. She points to the area and excess pain. However, I cannot get a more detailed history from her. She is somewhat disoriented. Modifying Factors: None Associated Signs & Symptoms: Headaches, disorientation, chest pain Risk Factors: End-stage renal disease PFSH Past Medical History Hx Anticoagulant Therapy: Yes Anemia: Yes Arthritis: Yes Asthma: No Autoimmune Disease: No Blood Disorders: Yes (anemia of chronic disease) Anxiety: Yes Depression: Yes Heart Rhythm Problems: No Cancer: No Cardiac Catheterization: No Cardiovascular Problems: Yes High Cholesterol: Yes Chemotherapy: No Chest Pain: Yes Congestive Heart Failure: No COPD: No Cerebrovascular Accident: No Diabetes: Yes Patient Takes Glucophage: No (UNKNOWN) Dialysis: Yes ([facility] FRI/FRI/FRI LAST WENT 11-26-17) Diminished Hearing: No Endocrine: Yes Gastrointestinal Disorders: No GERD: No Glaucoma: No Genitourinary: Yes (ESRD) Headaches: Yes Hiatal Hernia: No Heparin Induced Thrombocytopen: No Hypertension: Yes Immune Disorder: No Implanted Vascular Access Dvce: Yes (L UPPER ARM AVF) Musculoskeletal: Yes Neurologic: No Psychiatric: No Reproductive: Yes (c section) Respiratory: No Migraines: No Radiation Therapy: No Renal Failure: Yes (ANURIC) Seizures: No Sickle Cell Disease: No Sleep Apnea: No Thyroid Disease: No Ulcer: No PNEUMOCCOCAL Vaccine (Year): 2 Menopausal: Yes : 2 Para: 1 Miscarriage: 1 : 0 Past Surgical History Abdominal Surgery: Yes (appendectomy) AICD: No Appendectomy: Yes Arteriovenous Shunt: No Body Medical Devices: left AV fistula Cardiac Surgery: Yes (CABG) Section: Yes Coronary Artery Bypass Graft: Yes Ear Surgery: No Endocrine Surgery: No Eye Surgery: Yes (bilateral cataracts removal) Genitourinary Surgery: No Gynecologic Surgery: Yes () Insulin Pump: No Joint Replacement: No Oral Surgery: No Pacemaker: No Thoracic Surgery: No Other Surgery: Yes (LEFT ARM SHUNT PLACEMENT, APPENDECTOMY) Social History Alcohol Use: No Tobacco Use: No Substance Use: No Allergies-Medications (Allergen,Severity, Reaction): Coded Allergies: acetaminophen (Unverified Allergy, Severe, VOMITING, 12/29/17) linezolid (Unverified Allergy, Severe, VOMITING, 12/29/17) piperacillin (Unverified Allergy, Severe, VOMITING, 12/29/17) simvastatin (Unverified Allergy, Severe, VOMITING, 12/29/17) tazobactam (Unverified Allergy, Severe, VOMITING, 12/29/17) oxycodone (Unverified Adverse Reaction, Severe, VOMITING, 12/29/17) Reported Meds & Prescriptions Reported Meds & Active Scripts Active Magic Mouthwash Pediatric/Adult Liq (Lidocaine/Diphenhydr/Alum/Mg/Simeth) 60 Ml Susp 5 Ml SWISH-SWAL ACHS Each 5mL contains: Diphenydramine 4.5mg, Viscous Lidocaine 2% 10mg, Maalox Advanced Regular Strength 2.7ml Pepcid (Famotidine) 20 Mg Tab 20 Mg PO BID Labetalol (Labetalol HCl) 100 Mg Tab 50 Mg PO BID 30 Days check BP prior to taking hold for SBP < 130 and recheck after an hour Levemir Inj (Insulin Detemir) 1,000 unit/ 10 ML Vial 10 Units SQ HS 30 Days check blood sugar prior to taking Vayvtffavr-Fxmvhumxwvgbn-Gpsyzfdl 50-325-40 Mg Tab 1 Tab PO Q6H PRN Norvasc (Amlodipine Besylate) 5 Mg Tab 5 Mg PO DAILY [address] (Duloxetine HCl) 20 Mg Capdr 20 Mg PO DAILY Combigan Opth Drops (Brimonidine-Timolol Opth Drops) 0.2-0.5% Soln 1 Drop EACH EYE Q12HR 14 Days Reported Senna-Plus (Sennosides-Docusate Sodium) 8.6-50 Mg Tab 1 Tab PO DAILY Renvela (Sevelamer Carbonate) 800 Mg Tab 2,400 Mg PO TID Take 3 tabs (2,400mg) three times a day with meals & 1 tab (800mg) with snacks Renal Vitamin (B-Complex W/ C & Folic Acid) 1 Tab 1 Tab PO DAILY Protonix (Pantoprazole Sodium) 40 Mg Tab 40 Mg PO DAILY Keppra (Levetiracetam) 500 Mg Tab 1,000 Mg PO TID Lasix (Furosemide) 80 Mg Tab 80 Mg PO DAILY Plavix (Clopidogrel Bisulfate) 75 Mg Tab 75 Mg PO DAILY Dulcolax DR (Bisacodyl) 5 Mg Tabdr 5 Mg PO BID Lipitor (Atorvastatin Calcium) 10 Mg Tab 10 Mg PO HS Allopurinol 100 Mg Tab 100 Mg PO DAILY Advair Diskus Inh (Fluticasone-Salmeterol Inh) 250-50 Mcg/Blist Aer 1 Puff INH BID Rinse mouth after use. Review of Systems ROS Limitations: Altered Mental Status Physical Exam Narrative GENERAL: Well-developed middle-age -[place] female patient currently in moderate distress, lethargic and disoriented. SKIN: Focused skin assessment warm/dry. HEAD: Atraumatic. Normocephalic. EYES: Legally blind. No scleral icterus. ENT: No nasal bleeding or discharge. Mucous membranes pink and moist. NECK: Trachea midline. No JVD. CARDIOVASCULAR: Regular rate and rhythm. No murmur appreciated. RESPIRATORY: No accessory muscle use. Clear to auscultation. Breath sounds equal bilaterally. GASTROINTESTINAL: Abdomen soft, epigastric tenderness without guarding or rebound, nondistended. Hepatic and splenic margins not palpable. MUSCULOSKELETAL: No obvious deformities. No clubbing. No cyanosis. No edema. NEUROLOGICAL: Awake and lethargic t. No obvious cranial nerve deficits. Motor grossly within normal limits. Normal speech. PSYCHIATRIC: Lethargic and disoriented; insight and judgment poor. Data Data Last Documented VS Vital Signs Date Time Temp Pulse Resp B/P (MAP) Pulse Ox O2 Delivery O2 Flow Rate FiO2 01/15/18 11:58 98 Room Air 01/15/18 10:27 98.1 131 21 101/59 (73) Orders Orders Electrocardiogram (01/15/18 ) Complete Blood Count With Diff (01/15/18 10:31) Comprehensive Metabolic Panel (01/15/18 10:31) Prothrombin Time / Inr (Pt) (01/15/18 10:31) Act Partial Throm Time (Ptt) (01/15/18 10:31) Ct Brain W/O Iv Contrast(Rout) (01/15/18 10:31) Ecg Monitoring (01/15/18 10:31) Iv Access Insert/Monitor (01/15/18 10:31) Oximetry (01/15/18 10:31) Sodium Chloride 0.9% Flush (Ns Flush) (01/15/18 10:45) Sodium Chlorid 0.9% 500 Ml Inj (Ns 500 M (01/15/18 10:45) Ckmb (Isoenzyme) Profile (01/15/18 10:31) Troponin I (01/15/18 10:31) Lipase (01/15/18 10:31) Ct Abd/Pel W/O Iv Contrast (01/15/18 10:31) Chest, Single Ap (01/15/18 10:31) Morphine Inj (Morphine Inj) (01/15/18 12:45) Blood Culture (01/15/18 12:53) Cefepime Inj (Maxipime Inj) (01/15/18 12:53) Azithromycin Inj (Zithromax Inj) (01/15/18 12:53) Admit Order (Ed Use Only) (01/15/18 13:14) Labs Laboratory Tests Test 01/15/18 10:40 01/15/18 12:05 White Blood Count 6.0 TH/MM3 Red Blood Count 3.81 MIL/MM3 Hemoglobin 11.8 GM/DL Hematocrit 36.0 % Mean Corpuscular Volume 94.5 FL Mean Corpuscular Hemoglobin 31.0 PG Mean Corpuscular Hemoglobin Concent 32.8 % Red Cell Distribution Width 19.1 % Platelet Count 334 TH/MM3 Mean Platelet Volume 9.7 FL Neutrophils (%) (Auto) 50.0 % Lymphocytes (%) (Auto) 36.6 % Monocytes (%) (Auto) 8.2 % Eosinophils (%) (Auto) 4.3 % Basophils (%) (Auto) 0.9 % Neutrophils # (Auto) 3.0 TH/MM3 Lymphocytes # (Auto) 2.2 TH/MM3 Monocytes # (Auto) 0.5 TH/MM3 Eosinophils # (Auto) 0.3 TH/MM3 Basophils # (Auto) 0.1 TH/MM3 CBC Comment DIFF FINAL Differential Comment Blood Urea Nitrogen 32 MG/DL Creatinine 7.12 MG/DL Random Glucose 80 MG/DL Total Protein 8.3 GM/DL Albumin 3.5 GM/DL Calcium Level 8.6 MG/DL Alkaline Phosphatase 155 U/L Aspartate Amino Transf (AST/SGOT) 16 U/L Alanine Aminotransferase (ALT/SGPT) 11 U/L Total Bilirubin 0.5 MG/DL Sodium Level 138 MEQ/L Potassium Level 4.4 MEQ/L Chloride Level 99 MEQ/L Carbon Dioxide Level 26.1 MEQ/L Anion Gap 13 MEQ/L Estimat Glomerular Filtration Rate 7 ML/MIN Total Creatine Kinase 54 U/L Troponin I LESS THAN 0.02 NG/ML Lipase 68 U/L Prothrombin Time 11.2 SEC Prothromb Time International Ratio 1.1 RATIO Activated Partial Thromboplast Time 25.2 SEC MDM Medical Decision Making Medical Screen Exam Complete: Yes Emergency Medical Condition: Yes Medical Record Reviewed: Yes Interpretation(s) Laboratory Tests Test 01/15/18 10:40 01/15/18 12:05 Red Blood Count 3.81 MIL/MM3 (4.00-5.30) Red Cell Distribution Width 19.1 % (11.6-17.2) Monocytes (%) (Auto) 8.2 % (0.0-8.0) Eosinophils (%) (Auto) 4.3 % (0.0-4.0) Blood Urea Nitrogen 32 MG/DL (7-18) Creatinine 7.12 MG/DL (0.50-1.00) Total Protein 8.3 GM/DL (6.4-8.2) Alkaline Phosphatase 155 U/L (45-117) Estimat Glomerular Filtration Rate 7 ML/MIN (>89) Troponin I LESS THAN 0.02 NG/ML Lipase 68 U/L (73-393) Last [address] 01/15/18 103 Signed Impressions: Service Date/Time: December 11:01 - CONCLUSION: Normal examination for a patient of this age. No significant change has occurred. Tank Lebron MD Chest X-Ray 01/15/18 103 Signed Impressions: Service Date/Time: December 10:40 - CONCLUSION: Pulmonary venous congestion. Stable prominent cardiomegaly. Tank Lebron MD Abdomen/Pelvis CT 01/15/18 103 Signed Impressions: Service Date/Time: December 11:08 - CONCLUSION: 1. Resolving congestive changes in the lung bases with persistent mild groundglass opacity in the left lower lobe. 2. Cholelithiasis 3. Stable evaluation of the abdomen and pelvis without evidence of acute process. 4. Bilateral renal atrophy John Burkett MD EKG shows a narrow complex tachycardia rate 130 bpm. No signs of acute ST elevations. She has T-wave inversions in V5 and V6. Differential Diagnosis Migraine headaches versus acute intracranial processes versus sepsis versus dehydration versus ACS versus dysrhythmias versus pneumonia versus acute intra- abdominal processes Narrative Course Chest x-ray shows pulmonary edema and groundglass appearance at the left base concerning for developing pneumonia. She was hypotensive and IV antibiotics and IV fluids were given in the ER. However, considering the pulmonary edema as well, we are careful with IV fluid. She states that her chest discomfort had resolved while she was observed here. Lab work otherwise did not show other significant metabolic issue. Considering her chest discomfort and concern for pneumonia and sepsis, my plan would be to admit her for further evaluation and treatment. CT the brain was otherwise negative for any signs of acute intracranial processes. The plan was discussed with Dr. Ponce for admission. Diagnosis Primary Impression: Chest pain Additional Impressions: Confusion PNA (pneumonia) Admitting Information Admitting Physician Requests: Admit Tre Amanda MD Jan 15, 2018 10:45
--- NOTE | 2018-01-15 10:56 | RADRPT ---
EXAM DATE/TIME: 01/15/2018 10:40 [facility] COMPARISON: CHEST SINGLE AP, December 29, 2017, 6:15. INDICATIONS : Chest pain. MEDICAL HISTORY : Cardiovascular disease. Hypertension. Renal failure, acute. Dialysis SURGICAL HISTORY : CABG. Appendectomy. section. ENCOUNTER: Initial ACUITY: 1 day PAIN SCORE: Non-responsive. LOCATION: Bilateral chest FINDINGS: There is a mild pulmonary venous congestion. Otherwise, the lungs appear to be grossly clear. There i s diffuse cardiomegaly which is stable compared to the prior study. No pleural effusions. The bony st ructures are stable. CONCLUSION: Pulmonary venous congestion. Stable prominent cardiomegaly. Tank Lebron MD on January 15, 2018 at 10:53 Board Certified Radiologist. This report was verified electronically.
--- NOTE | 2018-01-15 11:15 | RADRPT ---
EXAM DATE/TIME: 01/15/2018 11:01 [facility] COMPARISON: CT BRAIN W/O CONTRAST, September 15, 2017, 8:10. INDICATIONS : Headache RADIATION DOSE: 38.12 CTDIvol (mGy) MEDICAL HISTORY : Hypertension. Diabetes mellitus type 1. Cardiovascular disease SURGICAL HISTORY : Appendectomy. ENCOUNTER: Initial ACUITY: 1 day PAIN SCALE: 6/10 LOCATION: cranial TECHNIQUE: Multiple contiguous axial images were obtained of the head. Using automated exposure control and adj ustment of the mA and/or kV according to patient size, radiation dose was kept as low as reasonably a chievable to obtain optimal diagnostic quality images. DICOM format image data is available electro nically for review and comparison. FINDINGS: CEREBRUM: The ventricles are normal for age. No evidence of midline shift, mass lesion, hemorrhage or acute in farction. No extra-axial fluid collections are seen. POSTERIOR FOSSA: The cerebellum and brainstem are intact. The 4th ventricle is midline. The cerebellopontine angle i s unremarkable. EXTRACRANIAL: The visualized portion of the orbits is intact. SKULL: The calvaria is intact. No evidence of skull fracture. CONCLUSION: Normal examination for a patient of this age. No significant change has occurred. Tank Lebron MD on January 15, 2018 at 11:12 Board Certified Radiologist. This report was verified electronically.
--- NOTE | 2018-01-15 11:42 | RADRPT ---
EXAM DATE/TIME: 01/15/2018 11:08 [facility] COMPARISON: CT ABDOMEN & PELVIS W/O CONTRAST, December 29, 2017, 6:33. INDICATIONS : Upper abdomen pain ORAL CONTRAST: No oral contrast ingested. RADIATION DOSE: 21.54 CTDIvol (mGy) MEDICAL HISTORY : Cardiovascular disease. Hypertension. Diabetes mellitus type 1. SURGICAL HISTORY : Appendectomy. ENCOUNTER: Initial ACUITY: 1 day PAIN SCALE: 6/10 LOCATION: upper quadrant TECHNIQUE: Volumetric scanning of the abdomen and pelvis was performed. Using automated exposure control and ad justment of the mA and/or kV according to patient size, radiation dose was kept as low as reasonably achievable to obtain optimal diagnostic quality images. DICOM format image data is available electro nically for review and comparison. FINDINGS: LOWER LUNGS: Small bowel effusions have resolved. Minimal groundglass opacity remains evident in the left lung bas e. Heart is mildly enlarged. LIVER: Homogeneous density without lesion. There is no dilation of the biliary tree. Small gallstones are a gain noted. SPLEEN: Normal size without lesion. PANCREAS: Within normal limits. KIDNEYS: Stable again demonstrating bilateral atrophic changes and a right renal cyst. There is no evidence of hydronephrosis. ADRENAL GLANDS: Within normal limits. VASCULAR: There is no aortic aneurysm. BOWEL/MESENTERY: Moderate amount retained stool is present throughout the colon. The stomach, small bowel, and colon d emonstrate no acute abnormality. There is no free intraperitoneal air or fluid. ABDOMINAL WALL: Small umbilical hernia is noted. RETROPERITONEUM: There is no lymphadenopathy. BLADDER: No wall thickening or mass. REPRODUCTIVE: Within normal limits. INGUINAL: There is no lymphadenopathy or hernia. MUSCULOSKELETAL: Within normal limits for patient age. CONCLUSION: 1. Resolving congestive changes in the lung bases with persistent mild groundglass opacity in the lef t lower lobe. 2. Cholelithiasis 3. Stable evaluation of the abdomen and pelvis without evidence of acute process. 4. Bilateral renal atrophy John Burkett MD on January 15, 2018 at 11:36 Board Certified Radiologist. This report was verified electronically.
[2018-01-15 11:52] LABS: BASOPHIL # 0.1 TH/MM3 (0-0.2); BASOPHIL % 0.9 % (0.0-2.0); EOSINOPHIL # 0.3 TH/MM3 (0-0.4); EOSINOPHIL % 4.3 % (0.0-4.0); HEMOGLOBIN 11.8 GM/DL (11.6-15.3); LYMPH % 36.6 % (9.0-44.0); LYMPHOCYTE # 2.2 TH/MM3 (1.0-4.8); MEAN CELL VOLUME 94.5 FL (80.0-100.0); MEAN CORPUSCULAR HGB CONC 32.8 % (32.0-36.0); MEAN PLATELET VOLUME 9.7 FL (7.0-11.0); MONO % 8.2 % (0.0-8.0); MONOCYTE # 0.5 TH/MM3 (0-0.9); PLATELET COUNT 334 TH/MM3 (150-450); RED BLOOD COUNT 3.81 MIL/MM3 (4.00-5.30); RED CELL DISTRIBUTION WIDTH 19.1 % (11.6-17.2)
[2018-01-15 11:58] VITALS: O2SAT 98
[2018-01-15 12:09] LABS: ALBUMIN 3.5 GM/DL (3.4-5.0); AST (GOT) 16 U/L (15-37); BICARBONATE 26.1 MEQ/L (21.0-32.0); BLOOD UREA NITROGEN 32 MG/DL (7-18); CALCIUM 8.6 MG/DL (8.5-10.1); CHLORIDE 99 MEQ/L (98-107); CREATININE 7.12 MG/DL (0.50-1.00); GLOMERULAR FILTRATION RATE 7 ML/MIN (>89); GLUCOSE,RANDOM 80 MG/DL (74-106); SODIUM (NA) 138 MEQ/L (136-145)
[2018-01-15 12:10] LABS: ALT (GPT) 11 U/L (10-53)
[2018-01-15 12:14] LABS: ALKALINE PHOSPHATASE 155 U/L (45-117); TOTAL BILIRUBIN ADULT 0.5 MG/DL (0.2-1.0); TOTAL PROTEIN 8.3 GM/DL (6.4-8.2); TROPONIN I LESS THAN 0.02 NG/ML (0.02-0.05)
[2018-01-15] MEDS ORDERED: MORPHINE SULFATE 2 MG/ML SYRINGE IV PUSH ONE (12:45)
[2018-01-15 12:49] LABS: INTERNATIONAL NORMALIZED RATIO 1.1 RATIO; PROTHROMBIN TIME - PATIENT 11.2 SEC (9.8-11.6)
[2018-01-15] MEDS ORDERED: CEFEPIME INJ 2,000 MG in SODIUM CHLORIDE 0.9% INJ 100 ML IV STA (12:53)
[2018-01-15] MEDS ORDERED: AZITHROMYCIN INJ 500 MG in SODIUM CHLOR 0.9% 250 ML INJ 250 ML IV STA (12:53)
[2018-01-15] MEDS ORDERED: GLUCAGON 1 MG/ML VIAL OTHER PRN (13:15)
[2018-01-15] MEDS ORDERED: DEXTROSE 50% IN WATER 50 ML VIAL(D50) IV PUSH PRN (13:15)
[2018-01-15] MEDS ORDERED: ONDANSETRON HCL 4 MG/2 ML VIAL IV PUSH PRN ×2 (13:15→14:45)
[2018-01-15 13:25] VITALS: BP 143/78; PULSE 121; RESP 19; O2SAT 100
[2018-01-15] MEDS ORDERED: MORPHINE SULFATE 4 MG/ML INJ IV PUSH PRN (13:30)
[2018-01-15] MEDS ORDERED: ACETAMIN 325 MG/BUTALBITAL 50 MG/CAFFEINE 40 MG TAB PO PRN (13:30)
--- NOTE | 2018-01-15 13:42 | HHI.HP ---
[facility] Physician Unknown Admission Diagnosis Chest pain/pulmonary edema/sepsis Diagnoses: (1) Abdominal pain Diagnosis: Principal Chief Complaint: abdominal pain Travel History International Travel<30 Days: No Contact w/Intl Traveler <30 Da: No Traveled to Known Affected Are: No History of Present Illness patient is a 57 y/o female with history of ESRD-on HD, hypertension, CAD, diabetes mellitus, who presented to ER with epigastric pain. she says that the pain started earlier this morning. pain is epigastric with no radiation. pain is moderate to severe in intensity. it was associated with nausea and vomiting. she doesn't report any change in her BM.she had an EGD about three months ago which showed gastritis. she was also complaining of some on and off headache which has improved. she's complaining of generalized weakness and she says that she had a fall about a week ago. of note she was recently admitted to this hospital because if chest pain and pulmonary edema. Review of Systems Constitutional: COMPLAINS OF: Fatigue, DENIES: Fever, Weight loss, Chills, Night Sweats Eyes: DENIES: Blurred vision, Diplopia, Vision loss, Double Vision Ears, nose, mouth, throat: DENIES: Tinnitus, Vertigo, Throat pain, Epistaxis Respiratory: DENIES: Apneas, Cough, Snoring, Wheezing, Hemoptysis, Sputum production, Shortness of breath Cardiovascular: DENIES: Chest pain, Palpitations, Syncope, Dyspnea on Exertion , PND, Lower Extremity Edema, Orthopnea, Claudication Gastrointestinal: COMPLAINS OF: Abdominal pain, Nausea, Vomiting, DENIES: Black stools, Bloody stools, Constipation, Diarrhea, Difficulty Swallowing, Anorexia Genitourinary: DENIES: Urinary frequency, Urgency, Hematuria, Dysuria Musculoskeletal: DENIES: Joint pain, Muscle aches, Stiffness, Joint Swelling Integumentary: DENIES: Rash Neurologic: DENIES: Abnormal gait, Headache, Localized weakness, Paresthesias, Seizures, Speech Problems, Tremor, Poor Balance Psychiatric: DENIES: Anxiety, Confusion, Mood changes, Depression, Hallucinations, Agitation, Suicidal Ideation, Homicidal Ideation, Delusions Past Family Social History Past Medical History ESRD on HD MWF Dr Suggs HTN DM type 2 HLD Anxiety Depression Arthritis Anemia of chronic disease Past Surgical History Past Surgical History Past Surgical History Appendectomy Left AV fistula CABG bilateral cataract surgery Reported Medications Magic Mouthwash Pediatric/Adult Liq (Lidocaine/Diphenhydr/Alum/Mg/Simeth) 60 Ml Susp 5 Ml SWISH-SWAL ACHS Each 5mL contains: Diphenydramine 4.5mg, Viscous Lidocaine 2% 10mg, Maalox Advanced Regular Strength 2.7ml Pepcid (Famotidine) 20 Mg Tab 20 Mg PO BID Labetalol (Labetalol HCl) 100 Mg Tab 50 Mg PO BID 30 Days check BP prior to taking hold for SBP < 130 and recheck after an hour Levemir Inj (Insulin Detemir) 1,000 unit/ 10 ML Vial 10 Units SQ HS 30 Days check blood sugar prior to taking Nngzpkiaau-Wrjfzbwbjuwok-Ppblvzqk 50-325-40 Mg Tab 1 Tab PO Q6H PRN Norvasc (Amlodipine Besylate) 5 Mg Tab 5 Mg PO DAILY [address] (Duloxetine HCl) 20 Mg Capdr 20 Mg PO DAILY Combigan Opth Drops (Brimonidine-Timolol Opth Drops) 0.2-0.5% Soln 1 Drop EACH EYE Q12HR 14 Days Reported Senna-Plus (Sennosides-Docusate Sodium) 8.6-50 Mg Tab 1 Tab PO DAILY Renvela (Sevelamer Carbonate) 800 Mg Tab 2,400 Mg PO TID Take 3 tabs (2,400mg) three times a day with meals & 1 tab (800mg) with snacks Renal Vitamin (B-Complex W/ C & Folic Acid) 1 Tab 1 Tab PO DAILY Protonix (Pantoprazole Sodium) 40 Mg Tab 40 Mg PO DAILY Keppra (Levetiracetam) 500 Mg Tab 1,000 Mg PO TID Lasix (Furosemide) 80 Mg Tab 80 Mg PO DAILY Plavix (Clopidogrel Bisulfate) 75 Mg Tab 75 Mg PO DAILY Dulcolax DR (Bisacodyl) 5 Mg Tabdr 5 Mg PO BID Lipitor (Atorvastatin Calcium) 10 Mg Tab 10 Mg PO HS Allopurinol 100 Mg Tab 100 Mg PO DAILY Advair Diskus Inh (Fluticasone-Salmeterol Inh) 250-50 Mcg/Blist Aer 1 Puff INH BID Rinse mouth after use. Allergies: Coded Allergies: acetaminophen (Unverified Allergy, Severe, VOMITING, 12/29/17) linezolid (Unverified Allergy, Severe, VOMITING, 12/29/17) piperacillin (Unverified Allergy, Severe, VOMITING, 12/29/17) simvastatin (Unverified Allergy, Severe, VOMITING, 12/29/17) tazobactam (Unverified Allergy, Severe, VOMITING, 12/29/17) oxycodone (Unverified Adverse Reaction, Severe, VOMITING, 12/29/17) Active Ordered Medications Inpatient Medications Azithromycin 500 mg/Sodium Chloride 250 ml @ 250 mls/hr ONCE STAT IV Last administered on 01/15/18at 13:16; Start 01/15/18 at 12:53; Stop 01/15/18 at 13:52 Cefepime HCl 2000 mg/Sodium Chloride 100 ml @ 200 mls/hr ONCE STAT IV Last administered on 01/15/18at 13:16; Start 01/15/18 at 12:53; Stop 01/15/18 at 13:22 ; Status DC Dextrose (D50w (Vial) Inj) 50 ml UNSCH PRN IV PUSH HYPOGLYCEMIA-SEE COMMENTS; Start 01/15/18 at 13:15 Glucagon (Glucagon Inj) 1 mg UNSCH PRN OTHER HYPOGLYCEMIA-SEE COMMENTS; Start 01/15/18 at 13:15 Insulin Aspart (NovoLOG SUPPLEMENTAL SCALE) 1 ACHS SLIDING SCALE SQ ; Start at 17:00 Morphine Sulfate (Morphine Inj) 2 mg ONCE ONCE IV PUSH Last administered on at 13:16; Start 01/15/18 at 12:45; Stop 01/15/18 at 12:46; Status DC Ondansetron HCl (Zofran Inj) 4 mg Q8HR PRN IV PUSH NAUSEA; Start 01/15/18 at 13 :15; Status UNV Sodium Chloride 500 ml @ 500 mls/hr BOLUS ONCE IV Last administered on at 10:43; Start 01/15/18 at 10:45; Stop 01/15/18 at 12:16; Status DC Sodium Chloride (NS Flush) 2 ml UNSCH PRN IVF FLUSH AFTER USING IV ACCESS Last administered on 01/15/18at 13:15; Start 01/15/18 at 10:45 Social History no smoking or drinking. lives with her boyfriend. Physical Exam Vital Signs Vital Signs Date Time Temp Pulse Resp B/P (MAP) Pulse Ox O2 Delivery O2 Flow Rate FiO2 01/15/18 13:25 121 19 143/78 (99) 100 Room Air 01/15/18 11:58 98 Room Air 01/15/18 10:27 98.1 131 21 101/59 (73) 100 Physical Exam GENERAL: This is a well-nourished, well-developed patient, in no apparent distress. SKIN: No rashes, ecchymoses or lesions. Cool and dry. HEAD: Atraumatic. Normocephalic. No temporal or scalp tenderness. EYES: Pupils equal round and reactive. Extraocular motions intact. No scleral icterus. No injection or drainage. ENT: Nose without bleeding, purulent drainage or septal hematoma. Throat without erythema, tonsillar hypertrophy or exudate. Uvula midline. Airway patent. NECK: Trachea midline. No JVD or lymphadenopathy. Supple, nontender, no meningeal signs. CARDIOVASCULAR: Regular rate and rhythm without murmurs, gallops, or rubs. RESPIRATORY: Clear to auscultation. Breath sounds equal bilaterally. No wheezes , rales, or rhonchi. GASTROINTESTINAL: Abdomen soft, non-tender, nondistended. No hepato-splenomegaly , or palpable masses. No guarding. MUSCULOSKELETAL: Extremities without clubbing, cyanosis, or edema. No joint tenderness, effusion, or edema noted. No calf tenderness. Negative Homans sign bilaterally. NEUROLOGICAL: Awake and alert. Cranial nerves II through XII intact. Motor and sensory grossly within normal limits. Five out of 5 muscle strength in all muscle groups. Normal speech. Laboratory Laboratory Tests Test 01/15/18 10:40 01/15/18 12:05 White Blood Count 6.0 Red Blood Count 3.81 Hemoglobin 11.8 Hematocrit 36.0 Mean Corpuscular Volume 94.5 Mean Corpuscular Hemoglobin 31.0 Mean Corpuscular Hemoglobin Concent 32.8 Red Cell Distribution Width 19.1 Platelet Count 334 Mean Platelet Volume 9.7 Neutrophils (%) (Auto) 50.0 Lymphocytes (%) (Auto) 36.6 Monocytes (%) (Auto) 8.2 Eosinophils (%) (Auto) 4.3 Basophils (%) (Auto) 0.9 Neutrophils # (Auto) 3.0 Lymphocytes # (Auto) 2.2 Monocytes # (Auto) 0.5 Eosinophils # (Auto) 0.3 Basophils # (Auto) 0.1 CBC Comment DIFF FINAL Differential Comment Blood Urea Nitrogen 32 Creatinine 7.12 Random Glucose 80 Total Protein 8.3 Albumin 3.5 Calcium Level 8.6 Alkaline Phosphatase 155 Aspartate Amino Transf (AST/SGOT) 16 Alanine Aminotransferase (ALT/SGPT) 11 Total Bilirubin 0.5 Sodium Level 138 Potassium Level 4.4 Chloride Level 99 Carbon Dioxide Level 26.1 Anion Gap 13 Estimat Glomerular Filtration Rate 7 Total Creatine Kinase 54 Troponin I LESS THAN 0.02 Lipase 68 Prothrombin Time 11.2 Prothromb Time International Ratio 1.1 Activated Partial Thromboplast Time 25.2 Result Diagram: 01/15/18 1040 01/15/18 1040 Imaging Last Impressions Head CT 01/15/18 1031 Signed Impressions: Service Date/Time: December 11:01 - CONCLUSION: Normal examination for a patient of this age. No significant change has occurred. Tank Lebron MD Chest X-Ray 01/15/18 1031 Signed Impressions: Service Date/Time: December 10:40 - CONCLUSION: Pulmonary venous congestion. Stable prominent cardiomegaly. Tank Lebron MD Abdomen/Pelvis CT 01/15/18 1031 Signed Impressions: Service Date/Time: December 11:08 - CONCLUSION: 1. Resolving congestive changes in the lung bases with persistent mild groundglass opacity in the left lower lobe. 2. Cholelithiasis 3. Stable evaluation of the abdomen and pelvis without evidence of acute process. 4. Bilateral renal atrophy John Burkett MD Caprini VTE Risk Assessment Caprini VTE Risk Assessment: Mod/High Risk (score >= 2) Caprini Risk Assessment Model Point Value = 1 Point Value = 2 Point Value = 3 Point Value = 5 Age 41-60 Minor surgery BMI > 25 kg/m2 Swollen legs Varicose veins or History of unexplained or recurrent spontaneous Oral contraceptives or hormone replacement Sepsis (< 1 month) Serious lung disease, including pneumonia (< 1 month) Abnormal pulmonary function Acute myocardial infarction Congestive heart failure (< 1 month) History of inflammatory bowel disease Medical patient at bed rest Age 61-74 Arthroscopic surgery Major open surgery (> 45 min) Laparoscopic surgery (> 45 min) Malignancy Confined to bed (> 72 hours) Immobilizing plaster cast Central venous access Age >= 75 History of VTE Family history of VTE Factor V Leiden Prothrombin [id number] Lupus anticoagulant Anticardiolipin antibodies Elevated serum homocysteine Heparin-induced thrombocytopenia Other congenital or acquired thrombophilia Stroke (< 1 month) Elective arthroplasty Hip, pelvis, or leg fracture Acute spinal cord injury (< 1 month) Prophylaxis Regimen Total Risk Factor Score Risk Level Prophylaxis Regimen 0-1 Low Early ambulation 2 Moderate Order ONE of the following: *Sequential Compression Device (SCD) *Heparin 5000 units SQ BID 3-4 Higher Order ONE of the following medications: *Heparin 5000 units SQ TID *Enoxaparin/Lovenox 40 mg SQ daily (WT < 150 kg, CrCl > 30 mL/min) *Enoxaparin/Lovenox 30 mg SQ daily (WT < 150 kg, CrCl > 10-29 mL/min) *Enoxaparin/Lovenox 30 mg SQ BID (WT < 150 kg, CrCl > 30 mL/min) AND/OR *Sequential Compression Device (SCD) 5 or more Highest Order ONE of the following medications: *Heparin 5000 units SQ TID (Preferred with Epidurals) *Enoxaparin/Lovenox 40 mg SQ daily (WT < 150 kg, CrCl > 30 mL/min) *Enoxaparin/Lovenox 30 mg SQ daily (WT < 150 kg, CrCl > 10-29 mL/min) *Enoxaparin/Lovenox 30 mg SQ BID (WT < 150 kg, CrCl > 30 mL/min) AND *Sequential Compression Device (SCD) Assessment and Plan Assessment and Plan A/P - epigastric pain start on clear liquid diet for now- continue with PPI pain control and antiemetics as needed- consult GI. -ESRD- on HD- will consult nephrology. -hypertension; resume BB- hold amlodipine- continue to monitor BP and adjust the regimen as needed. -diabetes mellitus; accu-check with SSI -CAD; resume BB - resume plavix after evaluated by GI. of note had a stress test about six months ago with no ischemia. -generalized weakness- will consult PT -DVT prophyalis with SCD's Discussed Condition With ER physician and the patient. Physician Certification 2 Midnight Certification Type: Admission for Inpatient Services Order for Inpatient Services The services are ordered in accordance with Medicare regulations or non- Medicare payer requirements, as applicable. In the case of services not specified as inpatient-only, they are appropriately provided as inpatient services in accordance with the 2-midnight benchmark. Estimated LOS (days): 2 days is the estimated time the patient will need to remain in the hospital, assuming treatment plan goals are met and no additional complications. Post-Hospital Plan: Not yet determined Problem Qualifiers (1) Abdominal pain: Qualified Codes: R10.13 - Epigastric pain Manuel Santos MD Jan 15, 2018 13:42
[2018-01-15] MEDS ORDERED: HYDROmorphone HCL PF 1 MG/ML VIAL IV PUSH PRN (14:00)
--- NOTE | 2018-01-15 14:37 | PD.CONS ---
HPI History of Present Illness This is a 57 year old female with ESRD on HD, CAD on plavix, DM who presented to ER for abd pain that started this morning. She says she had some nausea and vomiting but "they gave me something." She is blind, says she does not know if she has blood in her stool. Denies loose stool. She had EGD and colonoscopy with findings of erythematous gastritis; nonbleeding ulcer cecum s/p APC, sessile polyps, hemorrhoids. CT scan moderate amt retained stool, stable. Last BM 2 days ago. Pt is confused and poor historian. (Myrna Forbes) PFSH Past Medical History ESRD on HD MWF Dr Suggs HTN DM type 2 HLD Anxiety Depression Arthritis Anemia of chronic disease Past Surgical History Past Surgical History Past Surgical History Appendectomy Left AV fistula CABG bilateral cataract surgery (Myrna Forbes) Coded Allergies: acetaminophen (Unverified Allergy, Severe, VOMITING, 12/29/17) linezolid (Unverified Allergy, Severe, VOMITING, 12/29/17) piperacillin (Unverified Allergy, Severe, VOMITING, 12/29/17) simvastatin (Unverified Allergy, Severe, VOMITING, 12/29/17) tazobactam (Unverified Allergy, Severe, VOMITING, 12/29/17) oxycodone (Unverified Adverse Reaction, Severe, VOMITING, 12/29/17) Family History noncontributory Social History no smoking or drinking. lives with her boyfriend. (Myrna Forbes) Review of Systems Constitutional: DENIES: Fever Respiratory: COMPLAINS OF: Shortness of breath Gastrointestinal: COMPLAINS OF: Abdominal pain otherwise noncontributory (Myrna Forbes) GI Exam Vitals I&O Vital Signs Date Time Temp Pulse Resp B/P (MAP) Pulse Ox O2 Delivery O2 Flow Rate FiO2 01/15/18 13:25 121 19 143/78 (99) 100 Room Air 01/15/18 11:58 98 Room Air 01/15/18 10:27 98.1 131 21 101/59 (73) 100 Imaging Last Impressions Head CT 01/15/18 1031 Signed Impressions: Service Date/Time: December 11:01 - CONCLUSION: Normal examination for a patient of this age. No significant change has occurred. Tank Lebron MD Chest X-Ray 01/15/18 1031 Signed Impressions: Service Date/Time: December 10:40 - CONCLUSION: Pulmonary venous congestion. Stable prominent cardiomegaly. Tank Lebron MD Abdomen/Pelvis CT 01/15/18 1031 Signed Impressions: Service Date/Time: December 11:08 - CONCLUSION: 1. Resolving congestive changes in the lung bases with persistent mild groundglass opacity in the left lower lobe. 2. Cholelithiasis 3. Stable evaluation of the abdomen and pelvis without evidence of acute process. 4. Bilateral renal atrophy John Burkett MD Laboratory Test 01/15/18 10:40 01/15/18 12:05 White Blood Count 6.0 TH/MM3 Red Blood Count 3.81 MIL/MM3 Hemoglobin 11.8 GM/DL Hematocrit 36.0 % Mean Corpuscular Volume 94.5 FL Mean Corpuscular Hemoglobin 31.0 PG Mean Corpuscular Hemoglobin Concent 32.8 % Red Cell Distribution Width 19.1 % Platelet Count 334 TH/MM3 Mean Platelet Volume 9.7 FL Neutrophils (%) (Auto) 50.0 % Lymphocytes (%) (Auto) 36.6 % Monocytes (%) (Auto) 8.2 % Eosinophils (%) (Auto) 4.3 % Basophils (%) (Auto) 0.9 % Neutrophils # (Auto) 3.0 TH/MM3 Lymphocytes # (Auto) 2.2 TH/MM3 Monocytes # (Auto) 0.5 TH/MM3 Eosinophils # (Auto) 0.3 TH/MM3 Basophils # (Auto) 0.1 TH/MM3 CBC Comment DIFF FINAL Differential Comment Blood Urea Nitrogen 32 MG/DL Creatinine 7.12 MG/DL Random Glucose 80 MG/DL Total Protein 8.3 GM/DL Albumin 3.5 GM/DL Calcium Level 8.6 MG/DL Alkaline Phosphatase 155 U/L Aspartate Amino Transf (AST/SGOT) 16 U/L Alanine Aminotransferase (ALT/SGPT) 11 U/L Total Bilirubin 0.5 MG/DL Sodium Level 138 MEQ/L Potassium Level 4.4 MEQ/L Chloride Level 99 MEQ/L Carbon Dioxide Level 26.1 MEQ/L Anion Gap 13 MEQ/L Estimat Glomerular Filtration Rate 7 ML/MIN Total Creatine Kinase 54 U/L Troponin I LESS THAN 0.02 NG/ML Lipase 68 U/L Prothrombin Time 11.2 SEC Prothromb Time International Ratio 1.1 RATIO Activated Partial Thromboplast Time 25.2 SEC Date/Time Source Procedure Growth Status 01/15/18 13:25 Blood Peripheral Aerobic Blood Culture Pending Received 01/15/18 13:25 Blood Peripheral Anaerobic Blood Culture Pending Received Physical Examination HEENT: normocephalic; atraumatic; no jaundice. CHEST: CTA CARDIAC: tachy ABDOMEN: Soft,obese, diffuse TTP but > LUQ; no hepatosplenomegaly; bowel sounds are present in all four quadrants. EXTREMITIES: No clubbing, cyanosis, or edema. SKIN: Normal; no rash; no jaundice. 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 . labs unremarkable aside from elevated ALP. moderate amt retained stool, cholelithiasis, stable exam. EGD and colonoscopy 11/10/17 with findings of erythematous gastritis; nonbleeding ulcer cecum s/p APC, sessile polyps, hemorrhoids. Last BM 2 days ago. poor historian. currently she is tachycardic - ESRD on HD, DM, CAD PLAN - GoLytely until BM achieved - continue clears for now - consider GES vs repeat endoscopy if no improvement - supportive care pt seen b y myself and Dr Earl and this note is on his behalf (Myrna Forbes) Physician Comments Seen and examined Agree with above Continue with current supportive care Monitor labs (Davonte Earl MD) Myrna Forbes Jan 15, 2018 14:37 Davonte Earl MD Jan 15, 2018 21:14
[2018-01-15] MEDS ORDERED: GELATIN 12 MM/7 MM FOAM TOP PRN (14:45)
[2018-01-15] MEDS ORDERED: MANNITOL 12.5 GM/50 ML VIAL IV PRN (14:45)
[2018-01-15] MEDS ORDERED: HEPARIN SODIUM - IV 10,000 UNITS/10 ML VIAL IV FLUSH PRN (14:45)
[2018-01-15] MEDS ORDERED: SODIUM CHLOR 0.9% 1000 ML INJ 1,000 ML IV PRN (14:45)
[2018-01-15] MEDS ORDERED: ALBUMIN 25% INJ 100 ML IV PRN (14:45)
[2018-01-15] MEDS ORDERED: HEPARIN SODIUM - IV 10,000 UNITS/10 ML VIAL PRN (14:45)
[2018-01-15] MEDS ORDERED: diphenhydrAMINE HCL 25 MG CAP PO PRN (14:45)
[2018-01-15] MEDS ORDERED: ACETAMINOPHEN 325 MG TAB PO PRN (14:45)
[2018-01-15] MEDS ORDERED: SODIUM CHLOR 0.9% 1000 ML INJ 1,000 ML OTHER PRN ×2 (14:45)
[2018-01-15] MEDS ORDERED: NITROGLYCERIN 0.4 MG SL 25 TABS/BTL SL PRN (14:45)
[2018-01-15] MEDS ORDERED: SODIUM CHLORIDE 0.9% FLUSH 10 ML FLUSH IV FLUSH PRN (14:45)
[2018-01-15] MEDS ORDERED: cloNIDine HCL 0.1 MG TAB PO PRN (14:45)
[2018-01-15] MEDS ORDERED: EPOETIN ALFA 10,000 UNITS/ML VIAL IV PUSH PRN (14:45)
[2018-01-15] MEDS ORDERED: GENTAMICIN SULFATE 20 MG/2 ML VIAL OTHER PRN (14:45)
--- NOTE | 2018-01-15 14:49 | PD.CONS ---
HPI Service Nephrology Consult Requested By Reason for Consult ESRD Primary Care Physician Unknown History of Present Illness Ms. Morales was seen in the ER. She does not answer any questions meaningfully. Apparently she is being admitted for either chest pain or epigastric pain. She has had multiple hospital admissions under similar circumstances. She did have dialysis yesterday. When I saw her, she was awake, hemodynamically stable, but tachycardic. Did not complain of any pain. Review of Systems ROS Limitations: Clinical Condition Past Family Social History Allergies: Coded Allergies: acetaminophen (Unverified Allergy, Severe, VOMITING, 12/29/17) linezolid (Unverified Allergy, Severe, VOMITING, 12/29/17) piperacillin (Unverified Allergy, Severe, VOMITING, 12/29/17) simvastatin (Unverified Allergy, Severe, VOMITING, 12/29/17) tazobactam (Unverified Allergy, Severe, VOMITING, 12/29/17) oxycodone (Unverified Adverse Reaction, Severe, VOMITING, 12/29/17) Past Medical History ESRD on HD MWF HTN DM type 2 Hyperlipidemia Anxiety Depression Arthritis Anemia of chronic disease Past Surgical History Appendectomy Left AV fistula CABG bilateral cataract surgery Reported Medications Magic Mouthwash Pediatric/Adult Liq (Lidocaine/Diphenhydr/Alum/Mg/Simeth) 60 Ml Susp 5 Ml SWISH-SWAL ACHS Each 5mL contains: Diphenydramine 4.5mg, Viscous Lidocaine 2% 10mg, Maalox Advanced Regular Strength 2.7ml Pepcid (Famotidine) 20 Mg Tab 20 Mg PO BID Labetalol (Labetalol HCl) 100 Mg Tab 50 Mg PO BID 30 Days check BP prior to taking hold for SBP < 130 and recheck after an hour Levemir Inj (Insulin Detemir) 1,000 unit/ 10 ML Vial 10 Units SQ HS 30 Days check blood sugar prior to taking Aoatpnhhww-Sckmlunmwfrji-Dmpwwljc 50-325-40 Mg Tab 1 Tab PO Q6H PRN Norvasc (Amlodipine Besylate) 5 Mg Tab 5 Mg PO DAILY [address] (Duloxetine HCl) 20 Mg Capdr 20 Mg PO DAILY Combigan Opth Drops (Brimonidine-Timolol Opth Drops) 0.2-0.5% Soln 1 Drop EACH EYE Q12HR 14 Days Reported Senna-Plus (Sennosides-Docusate Sodium) 8.6-50 Mg Tab 1 Tab PO DAILY Renvela (Sevelamer Carbonate) 800 Mg Tab 2,400 Mg PO TID Take 3 tabs (2,400mg) three times a day with meals & 1 tab (800mg) with snacks Renal Vitamin (B-Complex W/ C & Folic Acid) 1 Tab 1 Tab PO DAILY Protonix (Pantoprazole Sodium) 40 Mg Tab 40 Mg PO DAILY Keppra (Levetiracetam) 500 Mg Tab 1,000 Mg PO TID Lasix (Furosemide) 80 Mg Tab 80 Mg PO DAILY Plavix (Clopidogrel Bisulfate) 75 Mg Tab 75 Mg PO DAILY Dulcolax DR (Bisacodyl) 5 Mg Tabdr 5 Mg PO BID Lipitor (Atorvastatin Calcium) 10 Mg Tab 10 Mg PO HS Allopurinol 100 Mg Tab 100 Mg PO DAILY Advair Diskus Inh (Fluticasone-Salmeterol Inh) 250-50 Mcg/Blist Aer 1 Puff INH BID Rinse mouth after use. Active Ordered Medications Current Medications Medications (Trade) Dose Ordered Sig/Peter Route Start Time Stop Time Status Last Admin (NS Flush) 2 ml UNSCH PRN IVF 01/15/18 10:45 01/15/18 13:15 (D50w (Vial) Inj) 50 ml UNSCH PRN IV PUSH 01/15/18 13:15 (Glucagon Inj) 1 mg UNSCH PRN OTHER 01/15/18 13:15 (NovoLOG SUPPLEMENTAL SCALE) 1 ACHS SLIDING SCALE SQ 01/15/18 17:00 (Zofran Inj) 4 mg Q8H PRN IV PUSH 01/15/18 13:15 01/15/18 13:35 (Protonix Inj) 40 mg Q24H IV PUSH 01/15/18 13:30 UNV (Zyloprim) 100 mg DAILY PO 01/16/18 09:00 UNV (Lipitor) 10 mg HS PO 01/15/18 21:00 UNV (Fioricet 325-50-40) 1 tab Q6H PRN PO 01/15/18 13:30 UNV (Cymbalta Dr) 20 mg DAILY PO 01/16/18 09:00 UNV (Keppra) 1,000 mg TID PO 01/15/18 18:00 UNV (Renvela) 2,400 mg TID PO 01/15/18 18:00 UNV Non-Formulary Medication 1 tab DAILY PO 01/16/18 09:00 UNV Non-Formulary Medication 1 drop Q12HR EACH EYE 01/15/18 21:00 UNV Non-Formulary Medication 1 puff BID INH 01/15/18 21:00 UNV (Trandate) 50 mg BID PO 01/15/18 21:00 UNV (Dilaudid Pf Inj) 1 mg Q4H PRN IV PUSH 01/15/18 14:00 UNV Family History reviewed, non contributory Social History no tobacco or ETOH Physical Exam Vital Signs Vital Signs Date Time Temp Pulse Resp B/P (MAP) Pulse Ox O2 Delivery O2 Flow Rate FiO2 01/15/18 13:25 121 19 143/78 (99) 100 Room Air 01/15/18 11:58 98 Room Air 01/15/18 10:27 98.1 131 21 101/59 (73) 100 Physical Exam GENERAL: Patient is legally blind. SKIN: Warm and dry. HEAD: Normocephalic. EYES: No scleral icterus. No injection or drainage. NECK: Supple, trachea midline. No JVD or lymphadenopathy. CARDIOVASCULAR: regular tachycardia. RESPIRATORY: Breath sounds equal bilaterally. No accessory muscle use. GASTROINTESTINAL: Abdomen soft, non-tender, nondistended. MUSCULOSKELETAL: No cyanosis, or edema. AVF in the left arm, patent. BACK: Nontender without obvious deformity. No CVA tenderness. Laboratory Laboratory Tests Test 01/15/18 10:40 01/15/18 12:05 White Blood Count 6.0 Red Blood Count 3.81 Hemoglobin 11.8 Hematocrit 36.0 Mean Corpuscular Volume 94.5 Mean Corpuscular Hemoglobin 31.0 Mean Corpuscular Hemoglobin Concent 32.8 Red Cell Distribution Width 19.1 Platelet Count 334 Mean Platelet Volume 9.7 Neutrophils (%) (Auto) 50.0 Lymphocytes (%) (Auto) 36.6 Monocytes (%) (Auto) 8.2 Eosinophils (%) (Auto) 4.3 Basophils (%) (Auto) 0.9 Neutrophils # (Auto) 3.0 Lymphocytes # (Auto) 2.2 Monocytes # (Auto) 0.5 Eosinophils # (Auto) 0.3 Basophils # (Auto) 0.1 CBC Comment DIFF FINAL Differential Comment Blood Urea Nitrogen 32 Creatinine 7.12 Random Glucose 80 Total Protein 8.3 Albumin 3.5 Calcium Level 8.6 Alkaline Phosphatase 155 Aspartate Amino Transf (AST/SGOT) 16 Alanine Aminotransferase (ALT/SGPT) 11 Total Bilirubin 0.5 Sodium Level 138 Potassium Level 4.4 Chloride Level 99 Carbon Dioxide Level 26.1 Anion Gap 13 Estimat Glomerular Filtration Rate 7 Total Creatine Kinase 54 Troponin I LESS THAN 0.02 Lipase 68 Prothrombin Time 11.2 Prothromb Time International Ratio 1.1 Activated Partial Thromboplast Time 25.2 Date/Time Source Procedure Growth Status 01/15/18 13:25 Blood Peripheral Aerobic Blood Culture Pending Received 01/15/18 13:25 Blood Peripheral Anaerobic Blood Culture Pending Received Result Diagram: 01/15/18 1040 01/15/18 1040 Assessment and Plan Problem List: (1) ESRD (end stage renal disease) ICD Codes: N18.6 - End stage renal disease Status: Chronic Plan: Dialysis tomorrow and MWF. Monitor fluid and electrolytes. Avoid Gadolinium. Avoid excessive fluid administration. (2) Anemia ICD Codes: D64.9 - Anemia, unspecified Status: Acute Plan: Hemoglobin is acceptable. Epogen with dialysis will be continued. (3) HTN (hypertension) ICD Codes: I10 - Essential (primary) hypertension Status: Chronic Plan: BP is acceptable, continue home medications. (4) DM2 (diabetes mellitus, type 2) ICD Codes: E11.9 - Type 2 diabetes mellitus without complications Status: Chronic Plan: insulin coverage if needed. Maintain blood glucose between 140 and 180 Assessment and Plan patient can be discharged from renal standpoint. Thanks for the consult. Sai Suggs MD Jan 15, 2018 14:49
[2018-01-15] MEDS ORDERED: PEG (High)/E-LYTE SOLN 4000 ML BTL PO ONE (15:00)
[2018-01-15] MEDS ORDERED: PILL SPLITTER OTHER PRN (15:15)
[2018-01-15] MEDS: PANTOPRAZOLE SODIUM 40 MG VIAL IV PUSH SCH (16:16)
[2018-01-15] MEDS: INSULIN ASPART SUPPLEMENTAL SCALE SQ SCH ×2 (17:00→21:00)
[2018-01-15] MEDS: levETIRAcetam 500 MG TAB PO SCH (18:08)
[2018-01-15] MEDS: SEVELAMER CARBONATE 800 MG TAB PO SCH (18:08)
[2018-01-15 18:57] VITALS: BP 133/78; PULSE 122; RESP 20; TEMP 98.7; O2SAT 100
[2018-01-15 20:00] VITALS: BP 98/50; PULSE 116; RESP 18; TEMP 98.2; O2SAT 98
[2018-01-15 20:30] VITALS: PULSE 120
[2018-01-15] MEDS ORDERED: NON-FORMULARY DRUG (Brimonidine-Timolol Opth Drops (Combigan Opth Drops) 1 DROP) EACH EYE SCH (21:00)
[2018-01-15] MEDS: TIMOLOL MALEATE 0.5% EACH EYE SCH (21:00)
[2018-01-15] MEDS: BRIMONIDINE TARTRATE 0.2% OPHT SOLN 5 ML BTL EACH EYE SCH (21:00)
[2018-01-15] MEDS ORDERED: NON-FORMULARY DRUG (Fluticasone-Salmeterol Inh (Advair Diskus Inh) 1 PUFF) INH SCH (21:00)
[2018-01-15] MEDS: BUDESONIDE-FORMOTEROL 160/4.5 MCG INHALER INH SCH (21:00)
[2018-01-15] MEDS ORDERED: HYDROmorphone HCL PF 2 MG/ML VIAL IV PUSH PRN (21:15)
[2018-01-15] MEDS: LABETALOL HCL 100 MG TAB PO SCH (21:27)
[2018-01-15] MEDS: ATORVASTATIN 10 MG TAB PO SCH (21:27)
[2018-01-16] VITALS (8 sets, daily range): BP systolic 98–178; BP diastolic 50–80; PULSE 65–116; RESP 18–21; TEMP 97.3–98.2; O2SAT 94–98
[2018-01-16] MEDS: ALLOPURINOL 100 MG TAB PO SCH (08:53)
[2018-01-16] MEDS: VITAMIN B CMPLX/VITC/FOLIC AC CAP PO SCH (08:53)
[2018-01-16] MEDS: LABETALOL HCL 100 MG TAB PO SCH ×2 (08:53→22:10)
[2018-01-16] MEDS: DULoxetine HCl DR 20 MG CAP PO SCH (08:53)
[2018-01-16] MEDS: INSULIN ASPART SUPPLEMENTAL SCALE SQ SCH ×4 (08:54→22:11)
[2018-01-16] MEDS: BRIMONIDINE TARTRATE 0.2% OPHT SOLN 5 ML BTL EACH EYE SCH ×2 (08:54→20:25)
[2018-01-16] MEDS: levETIRAcetam 500 MG TAB PO SCH ×3 (08:54→17:27)
[2018-01-16] MEDS: BUDESONIDE-FORMOTEROL 160/4.5 MCG INHALER INH SCH ×2 (08:54→20:26)
[2018-01-16] MEDS: SEVELAMER CARBONATE 800 MG TAB PO SCH ×3 (08:54→17:27)
[2018-01-16] MEDS: TIMOLOL MALEATE 0.5% EACH EYE SCH ×2 (08:54→20:25)
--- NOTE | 2018-01-16 11:15 | HHI.NPPN ---
Subjective Complaints: Abdominal Pain, Chest Pain General Problems: Anemia Renal Failure: Chronic, End Stage Renal Disease Interval History Resting in bed. Not in distress, denies pain. Due for dialysis today. (Ladonna Mercedes) Objective Data Data Vital Signs Date Time Temp Pulse Resp B/P (MAP) Pulse Ox O2 Delivery O2 Flow Rate FiO2 01/16/18 08:00 97.8 76 18 155/76 (102) 95 01/16/18 08:00 71 01/16/18 04:30 73 01/16/18 04:00 97.6 73 18 129/65 (86) 98 01/16/18 00:30 113 01/16/18 00:00 98.1 65 18 132/64 (86) 96 01/15/18 20:30 120 01/15/18 20:00 98.2 116 18 98/50 (66) 98 01/15/18 18:57 98.7 122 20 133/78 (96) 100 01/15/18 13:25 121 19 143/78 (99) 100 Room Air 01/15/18 11:58 98 Room Air (Ladonna Mercedes) -: 01/15/18 1040 01/15/18 1040 Microbiology 01/15/18 Aerobic Blood Culture - Preliminary, Resulted NO GROWTH IN 1 DAY 01/15/18 Anaerobic Blood Culture - Preliminary, Resulted NO GROWTH IN 1 DAY 01/15/18 Aerobic Blood Culture - Preliminary, Resulted NO GROWTH IN 1 DAY 01/15/18 Anaerobic Blood Culture - Preliminary, Resulted NO GROWTH IN 1 DAY Imaging Last [address] 01/15/18 1031 Signed Impressions: Service Date/Time: December 11:01 - CONCLUSION: Normal examination for a patient of this age. No significant change has occurred. Tank Lebron MD Chest X-Ray 01/15/18 1031 Signed Impressions: Service Date/Time: December 10:40 - CONCLUSION: Pulmonary venous congestion. Stable prominent cardiomegaly. Tank Lebron MD Abdomen/Pelvis CT 01/15/18 1031 Signed Impressions: Service Date/Time: December 11:08 - CONCLUSION: 1. Resolving congestive changes in the lung bases with persistent mild groundglass opacity in the left lower lobe. 2. Cholelithiasis 3. Stable evaluation of the abdomen and pelvis without evidence of acute process. 4. Bilateral renal atrophy John Burkett MD (MagoLadonna B. FINISHING LAB TECHNICIAN) Physical Exam General Appearance: Well Developed, No Acute Distress, Comfortable (Mago,Ladonna B. FINISHING LAB TECHNICIAN) Eyes Eye Remarks blind (Mago,Ladonna B. FINISHING LAB TECHNICIAN) Throat Throat Exam: Oral Mucosa [place] & Moist (Mago,Ladonna B. FINISHING LAB TECHNICIAN) Pulmonary Resp Exam: Clear Bilaterally, Breath Sounds Equal (Mago,Ladonna B. FINISHING LAB TECHNICIAN) Cardiology CV Exam: Regular, Normal Sinus Rhythm (Mago,Ladonna B. FINISHING LAB TECHNICIAN) Gastrointestinal/Abdomen GI Exam: Soft, Non-Tender, Bowel Sounds Present (Mago,Ladonna B. FINISHING LAB TECHNICIAN) Musculoskeletal MS Exam: Joints Intact, Normal Tone, Unable to Ambulate (Mago,Ladonna B. FINISHING LAB TECHNICIAN) Integumentary Skin Exam: Warm, Dry, Intact (Mago,Ladonna B. FINISHING LAB TECHNICIAN) Extremeties Extremities Exam: No Edema, Pedal Pulses Palpable (Mago,Ladonna B. FINISHING LAB TECHNICIAN) Neurologic Neuro Exam: Alert, Awake, Oriented, Speech Clear, Moving All Extremities (MagoLadonna B. FINISHING LAB TECHNICIAN) Assessment/Plan Discussed Condition With: Patient Assessment Summary: Anemia of CKD, End Stage Renal Disease Problem List: (1) ESRD (end stage renal disease) ICD Codes: N18.6 - End stage renal disease Status: Chronic Plan: Dialysis MWF, due today Monitor fluid and electrolytes. Avoid Gadolinium. Avoid excessive fluid administration. patent AVF for dialysis. (2) Anemia ICD Codes: D64.9 - Anemia, unspecified Status: Acute Plan: Hemoglobin is acceptable. Low dose Epogen with dialysis . (3) HTN (hypertension) ICD Codes: I10 - Essential (primary) hypertension Status: Chronic Plan: BP is acceptable, continue home medications. (4) DM2 (diabetes mellitus, type 2) ICD Codes: E11.9 - Type 2 diabetes mellitus without complications Status: Chronic Plan: insulin coverage if needed. Maintain blood glucose between 140 and 180 (MagoLadonna B. FINISHING LAB TECHNICIAN) Plan patient was seen and examined. Agree with above assessment and plan. (Sai Suggs MD) Problem Qualifiers (1) HTN (hypertension): Qualified Codes: I10 - Essential (primary) hypertension Ladonna Mercedes Jan 16, 2018 11:15 Sai Suggs MD Jan 19, 2018 10:40
--- NOTE | 2018-01-16 11:26 | EKG ---
Date Performed: 01/15/2018 Time Performed: 17:18:24 PTAGE: 57 years EKG: ECTOPIC ATRIAL TACHYCARDIA MODERATE INTRAVENTRICULAR CONDUCTION DELAY NONSPECIFIC T-WAVE AB NORMALITY ABNORMAL ECG PREVIOUS TRACING : 01/15/2018 10.26 Since the previous tracing, no significant change noted DOCTOR: Adelfo Rogers Interpretating Date/Time 01/16/2018 11:24:46
--- NOTE | 2018-01-16 11:26 | EKG ---
Date Performed: 01/15/2018 Time Performed: 10:26:48 PTAGE: 57 years EKG: ECTOPIC ATRIAL TACHYCARDIA MARKED LEFT AXIS DEVIATION MODERATE INTRAVENTRICULAR CONDUCTION DELAY NONSPECIFIC T-WAVE ABNORMALITY ABNORMAL ECG PREVIOUS TRACING 12/29/17 Since the previous tracing, no significant change noted DOCTOR: Adelfo Rogers Interpretating Date/Time 01/16/2018 11:24:36
--- NOTE | 2018-01-16 11:47 | HHI.PR ---
Subjective Remarks Seen while in HD Had a BM today. Abd pain improved , diet advanced to full liquid diet No n/v/d/c. No fever ro chills. Objective Vitals Vital Signs Date Time Temp Pulse Resp B/P (MAP) Pulse Ox O2 Delivery O2 Flow Rate FiO2 01/16/18 08:00 97.8 76 18 155/76 (102) 95 01/16/18 08:00 71 01/16/18 04:30 73 01/16/18 04:00 97.6 73 18 129/65 (86) 98 01/16/18 00:30 113 01/16/18 00:00 98.1 65 18 132/64 (86) 96 01/15/18 20:30 120 01/15/18 20:00 98.2 116 18 98/50 (66) 98 01/15/18 18:57 98.7 122 20 133/78 (96) 100 01/15/18 13:25 121 19 143/78 (99) 100 Room Air 01/15/18 11:58 98 Room Air I/O 01/15/18 01/15/18 01/15/18 01/16/18 01/16/18 01/16/18 07:00 15:00 23:00 07:00 15:00 23:00 # Voids 2 # Bowel Movements 2 Result Diagram: 01/15/18 1040 01/15/18 1040 Imaging Last Impressions Head CT 01/15/18 1031 Signed Impressions: Service Date/Time: December 11:01 - CONCLUSION: Normal examination for a patient of this age. No significant change has occurred. Tank Lebron MD Chest X-Ray 01/15/18 1031 Signed Impressions: Service Date/Time: December 10:40 - CONCLUSION: Pulmonary venous congestion. Stable prominent cardiomegaly. Tank Lebron MD Abdomen/Pelvis CT 01/15/18 1031 Signed Impressions: Service Date/Time: December 11:08 - CONCLUSION: 1. Resolving congestive changes in the lung bases with persistent mild groundglass opacity in the left lower lobe. 2. Cholelithiasis 3. Stable evaluation of the abdomen and pelvis without evidence of acute process. 4. Bilateral renal atrophy John Burkett MD Objective Remarks GENERAL: This is a well-nourished, well-developed patient, in no apparent distress. CARDIOVASCULAR: Regular rate and rhythm without murmurs, gallops, or rubs. RESPIRATORY: Clear to auscultation. Breath sounds equal bilaterally. No wheezes , rales, or rhonchi. GASTROINTESTINAL: Abdomen soft, non-tender, nondistended. No hepato-splenomegaly , or palpable masses. No guarding. MUSCULOSKELETAL: Extremities without clubbing, cyanosis, or edema. No joint tenderness, effusion, or edema noted. No calf tenderness. Negative Homans sign bilaterally. NEUROLOGICAL: Awake and alert. Cranial nerves II through XII intact. Motor and sensory grossly within normal limits. Five out of 5 muscle strength in all muscle groups. Normal speech. A/P Problem List: (1) Abdominal pain ICD Code: R10.9 - Unspecified abdominal pain Assessment and Plan Epigastric pain Advance to full liquid diet and to renal diet in the morning - continue with PPI pain control and antiemetics as needed- consult GI appreciate recommendations. No further imaging or procedures patient has recent egd / colonoscopy ESRD on HD- consult nephrology. Continue HD Hypertension: resume BB- hold amlodipine- continue to monitor BP and adjust the regimen as needed. Diabetes mellitus 2 accu-check with SSI CAD: resume BB - resume Plavix after evaluated by GI. Of note had a stress test about six months ago with no ischemia. Generalized weakness- will consult PT DVT prophylaxis with SCD's Discussed Condition With Patient, nurse DC plan: DC tomorrow in AM if tolerated renal diet Problem Qualifiers (1) Abdominal pain: Qualified Codes: R10.13 - Epigastric pain Susan Sinclair MD Jan 16, 2018 11:47
[2018-01-16] MEDS: PANTOPRAZOLE SODIUM 40 MG VIAL IV PUSH SCH (12:35)
--- NOTE | 2018-01-16 12:47 | HHI.GIFU ---
Subjective Remarks Patient is resting in the bed Awake and responds to simple questions Nurse states large BM with barium Abdominal pain resolving Afebrile (Kimberly Messer) Objective Vitals I&O Vital Signs Date Time Temp Pulse Resp B/P (MAP) Pulse Ox O2 Delivery O2 Flow Rate FiO2 01/16/18 12:00 97.3 73 19 155/74 (101) 94 01/16/18 08:00 97.8 76 18 155/76 (102) 95 01/16/18 08:00 71 01/16/18 04:30 73 01/16/18 04:00 97.6 73 18 129/65 (86) 98 01/16/18 00:30 113 01/16/18 00:00 98.1 65 18 132/64 (86) 96 01/15/18 20:30 120 01/15/18 20:00 98.2 116 18 98/50 (66) 98 01/15/18 18:57 98.7 122 20 133/78 (96) 100 01/15/18 13:25 121 19 143/78 (99) 100 Room Air I/O 01/15/18 01/15/18 01/15/18 01/16/18 01/16/18 01/16/18 07:00 15:00 23:00 07:00 15:00 23:00 # Voids 2 # Bowel Movements 2 Laboratory Laboratory Tests Test 01/15/18 17:00 01/15/18 21:45 01/16/18 00:24 Troponin I 0.03 0.04 Lactic Acid Level 1.4 Date/Time Source Procedure Growth Status 01/15/18 13:25 Blood Peripheral Aerobic Blood Culture - Preliminary NO GROWTH IN 1 DAY Resulted 01/15/18 13:25 Blood Peripheral Anaerobic Blood Culture - Preliminary NO GROWTH IN 1 DAY Resulted Imaging Last Impressions Head CT 01/15/18 1031 Signed Impressions: Service Date/Time: December 11:01 - CONCLUSION: Normal examination for a patient of this age. No significant change has occurred. Tank Lebron MD Chest X-Ray 01/15/18 1031 Signed Impressions: Service Date/Time: December 10:40 - CONCLUSION: Pulmonary venous congestion. Stable prominent cardiomegaly. Tank Lebron MD Abdomen/Pelvis CT 01/15/18 1031 Signed Impressions: Service Date/Time: December 11:08 - CONCLUSION: 1. Resolving congestive changes in the lung bases with persistent mild groundglass opacity in the left lower lobe. 2. Cholelithiasis 3. Stable evaluation of the abdomen and pelvis without evidence of acute process. 4. Bilateral renal atrophy John Burkett MD Physical Exam HEENT: normocephalic; atraumatic; no jaundice. Moist oral cavity NECK: Neck is supple, no JVD, CHEST: Low volumes but no obvious rhonchi or wheezing CARDIAC: Regular rate and rhythm ABDOMEN: Soft, nondistended, nontender to light palpation; no hepatosplenomegaly; bowel sounds are present in all four quadrants. EXTREMITIES: No clubbing, cyanosis, or edema. SKIN: Pale pink mucous membranes no rash; no jaundice. SERVER SECURITY ADMINISTRATOR: No focal deficits; alert and oriented times two (Kimberly Messer) Assessment and Plan Plan ASSESSMENT - abd pain - unclear etiology could be constipation, gastroparesis? . labs unremarkable aside from elevated ALP. moderate amt retained stool, cholelithiasis, stable exam. EGD and colonoscopy 11/10/17 with findings of erythematous gastritis; nonbleeding ulcer cecum s/p APC, sessile polyps, hemorrhoids. Last BM 2 days ago. poor historian. currently she is tachycardic - ESRD on HD, DM, CAD 01/16/18 patient went to the bathroom and had a large bowel movement with increased amount of contrast noted per nurse. Abdominal pain seems to be resolved no bloating noted. Abdominal pain was probably due to constipation and residual contrast still in her colon. Hemoglobin stable at 11.8 with no obvious bleed PLAN Diet advanced to full liquids if tolerates may have renal diet in a.m. - Patient's going to dialysis today at 1:00 - Instructed patient to call for any abdominal pain - supportive care pt seen b y myself and Dr Earl and this note is on his behalf (Kimberly Messer) Physician Comments Patient seen and examined Agree with above Continue with current supportive care Monitor labs Not much to add at this point we will sign off Follow-up with GI post discharge (Rajat,DavonteKimberly Root Jan 16, 2018 12:47 Davonte Earl MD Jan 16, 2018 23:18
[2018-01-16] MEDS: ATORVASTATIN 10 MG TAB PO SCH (22:08)
[2018-01-17] VITALS: BP 182/77; PULSE 96; RESP 22; TEMP 98.3; O2SAT 98
[2018-01-17 00:30] VITALS: PULSE 93
[2018-01-17 04:00] VITALS: BP 174/80; PULSE 81; RESP 19; TEMP 98; O2SAT 100
[2018-01-17 04:20] LABS: BASOPHIL % 0.8 % (0.0-2.0); EOSINOPHIL # 0.2 TH/MM3 (0-0.4); EOSINOPHIL % 4.6 % (0.0-4.0); HEMOGLOBIN 10.4 GM/DL (11.6-15.3); LYMPH % 27.9 % (9.0-44.0); LYMPHOCYTE # 1.4 TH/MM3 (1.0-4.8); MEAN CELL VOLUME 95.2 FL (80.0-100.0); MEAN CORPUSCULAR HEMOGLOBIN 30.9 PG (27.0-34.0); MEAN CORPUSCULAR HGB CONC 32.4 % (32.0-36.0); MEAN PLATELET VOLUME 9.3 FL (7.0-11.0); MONO % 9.6 % (0.0-8.0); MONOCYTE # 0.5 TH/MM3 (0-0.9); NEUT % 57.1 % (16.0-70.0); PLATELET COUNT 197 TH/MM3 (150-450); RED BLOOD COUNT 3.36 MIL/MM3 (4.00-5.30); RED CELL DISTRIBUTION WIDTH 18.8 % (11.6-17.2); WHITE BLOOD COUNT 5.2 TH/MM3 (4.0-11.0)
[2018-01-17 04:42] LABS: BICARBONATE 32.5 MEQ/L (21.0-32.0); CREATININE 5.8 MG/DL (0.50-1.00)
[2018-01-17 07:40] VITALS: BP 106/57; PULSE 80; RESP 20; TEMP 98.2; O2SAT 99
[2018-01-17] MEDS: INSULIN ASPART SUPPLEMENTAL SCALE SQ SCH ×2 (08:00→13:06)
[2018-01-17 08:11] VITALS: O2SAT 99
[2018-01-17 08:20] VITALS: PULSE 74
--- NOTE | 2018-01-17 08:50 | HHI.PR ---
Subjective Remarks Tolerates diet. No abd pain , no n/v/d/c. Objective Vitals Vital Signs Date Time Temp Pulse Resp B/P (MAP) Pulse Ox O2 Delivery O2 Flow Rate FiO2 01/17/18 08:11 99 21 01/17/18 07:40 98.2 80 20 106/57 (73) 99 01/17/18 04:00 98.0 81 19 174/80 (111) 100 01/17/18 00:30 93 01/17/18 00:00 98.3 96 22 182/77 (112) 98 01/16/18 20:00 97.8 77 21 178/80 (112) 98 01/16/18 17:42 21 01/16/18 17:31 98.1 79 19 144/68 (93) 97 01/16/18 12:00 97.3 73 19 155/74 (101) 94 01/16/18 12:00 74 I/O 01/16/18 01/16/18 01/16/18 01/17/18 01/17/18 01/17/18 07:00 15:00 23:00 07:00 15:00 23:00 Intake Total 1120 ml Output Total 1000 ml Balance 120 ml Intake Oral 1120 ml Hemodialysis 1000 ml # Voids 2 0 0 # Bowel Movements 2 1 0 Result Diagram: 01/17/18 0309 01/17/18 0309 Imaging Last Impressions Head CT 01/15/181030 Signed Impressions: Service Date/Time: December 11:01 - CONCLUSION: Normal examination for a patient of this age. No significant change has occurred. Tank Lebron MD Chest X-Ray 01/15/181030 Signed Impressions: Service Date/Time: December 10:40 - CONCLUSION: Pulmonary venous congestion. Stable prominent cardiomegaly. Tank Lebron MD Abdomen/Pelvis CT 01/15/181030 Signed Impressions: Service Date/Time: December 11:08 - CONCLUSION: 1. Resolving congestive changes in the lung bases with persistent mild groundglass opacity in the left lower lobe. 2. Cholelithiasis 3. Stable evaluation of the abdomen and pelvis without evidence of acute process. 4. Bilateral renal atrophy John Burkett MD Objective Remarks GENERAL: This is a well-nourished, well-developed patient, in no apparent distress. CARDIOVASCULAR: Regular rate and rhythm without murmurs, gallops, or rubs. RESPIRATORY: Clear to auscultation. Breath sounds equal bilaterally. No wheezes , rales, or rhonchi. GASTROINTESTINAL: Abdomen soft, non-tender, nondistended. No hepato-splenomegaly , or palpable masses. No guarding. MUSCULOSKELETAL: Extremities without clubbing, cyanosis, or edema. No joint tenderness, effusion, or edema noted. No calf tenderness. Negative Homans sign bilaterally. NEUROLOGICAL: Awake and alert. Cranial nerves II through XII intact. Motor and sensory grossly within normal limits. Five out of 5 muscle strength in all muscle groups. Normal speech. A/P Problem List: (1) Abdominal pain ICD Code: R10.9 - Unspecified abdominal pain Assessment and Plan Epigastric pain. Resolved Advance to full liquid diet and to renal diet in the morning - continue with PPI pain control and antiemetics as needed- consult GI appreciate recommendations. No further imaging or procedures patient has recent egd / colonoscopy Tolerates renal diet ESRD on HD- consult nephrology. Continue HD Hypertension: resume BB- hold amlodipine- continue to monitor BP and adjust the regimen as needed. Diabetes mellitus 2 accu-check with SSI CAD: resume BB - resume Plavix after evaluated by GI. Of note had a stress test about six months ago with no ischemia. Generalized weakness- will consult PT DVT prophylaxis with SCD's Discussed Condition With Patient, nurse DC plan: DC today tolerated renal diet Problem Qualifiers (1) Abdominal pain: Qualified Codes: R10.13 - Epigastric pain Susan Sinclair MD Jan 17, 2018 08:50
[2018-01-17] MEDS: BRIMONIDINE TARTRATE 0.2% OPHT SOLN 5 ML BTL EACH EYE SCH (09:00)
[2018-01-17] MEDS: TIMOLOL MALEATE 0.5% EACH EYE SCH (09:00)
[2018-01-17] MEDS: BUDESONIDE-FORMOTEROL 160/4.5 MCG INHALER INH SCH (09:00)
[2018-01-17] MEDS: VITAMIN B CMPLX/VITC/FOLIC AC CAP PO SCH (09:39)
[2018-01-17] MEDS: ALLOPURINOL 100 MG TAB PO SCH (09:39)
[2018-01-17] MEDS: LABETALOL HCL 100 MG TAB PO SCH (09:39)
[2018-01-17] MEDS: SEVELAMER CARBONATE 800 MG TAB PO SCH ×2 (09:39→13:05)
[2018-01-17] MEDS: levETIRAcetam 500 MG TAB PO SCH ×2 (09:39→13:05)
[2018-01-17] MEDS: DULoxetine HCl DR 20 MG CAP PO SCH (09:40)
--- NOTE | 2018-01-17 10:10 | HHI.DS ---
Discharge Summary Admission Date Jan 15, 2018 at 13:15 Discharge Date: Jan 17, 2018 Admitting Diagnosis Chest pain/pulmonary edema/sepsis (1) Abdominal pain ICD Code: R10.9 - Unspecified abdominal pain Diagnosis: Principal Procedures none Brief History - From Admission patient is a 57 y/o female with history of ESRD-on HD, hypertension, CAD, diabetes mellitus, who presented to ER with epigastric pain. she says that the pain started earlier this morning. pain is epigastric with no radiation. pain is moderate to severe in intensity. it was associated with nausea and vomiting. she doesn't report any change in her BM.she had an EGD about three months ago which showed gastritis. she was also complaining of some on and off headache which has improved. she's complaining of generalized weakness and she says that she had a fall about a week ago. of note she was recently admitted to this hospital because if chest pain and pulmonary edema. CBC/BMP: 01/17/18 0309 01/17/18 0309 Significant Findings Laboratory Tests Test 01/15/18 10:40 01/15/18 12:05 01/15/18 17:00 01/15/18 21:45 Red Blood Count 3.81 MIL/MM3 (4.00-5.30) Red Cell Distribution Width 19.1 % (11.6-17.2) Monocytes (%) (Auto) 8.2 % (0.0-8.0) Eosinophils (%) (Auto) 4.3 % (0.0-4.0) Blood Urea Nitrogen 32 MG/DL (7-18) Creatinine 7.12 MG/DL (0.50-1.00) Total Protein 8.3 GM/DL (6.4-8.2) Alkaline Phosphatase 155 U/L (45-117) Estimat Glomerular Filtration Rate 7 ML/MIN (>89) Troponin I LESS THAN 0.02 NG/ML Lipase 68 U/L (73-393) Test 01/16/18 00:24 01/17/18 03:09 Red Blood Count 3.36 MIL/MM3 (4.00-5.30) Hemoglobin 10.4 GM/DL (11.6-15.3) Hematocrit 32.0 % (35.0-46.0) Red Cell Distribution Width 18.8 % (11.6-17.2) Monocytes (%) (Auto) 9.6 % (0.0-8.0) Eosinophils (%) (Auto) 4.6 % (0.0-4.0) Blood Urea Nitrogen 23 MG/DL (7-18) Creatinine 5.80 MG/DL (0.50-1.00) Carbon Dioxide Level 32.5 MEQ/L (21.0-32.0) Estimat Glomerular Filtration Rate 9 ML/MIN (>89) Imaging Last Impressions Head CT 01/15/18 1031 Signed Impressions: Service Date/Time: December 11:01 - CONCLUSION: Normal examination for a patient of this age. No significant change has occurred. Tank Lebron MD Chest X-Ray 01/15/18 103 Signed Impressions: Service Date/Time: December 10:40 - CONCLUSION: Pulmonary venous congestion. Stable prominent cardiomegaly. Tank Lebron MD Abdomen/Pelvis CT 01/15/18 103 Signed Impressions: Service Date/Time: December 11:08 - CONCLUSION: 1. Resolving congestive changes in the lung bases with persistent mild groundglass opacity in the left lower lobe. 2. Cholelithiasis 3. Stable evaluation of the abdomen and pelvis without evidence of acute process. 4. Bilateral renal atrophy John Burkett MD PE at Discharge GENERAL: This is a well-nourished, well-developed patient, in no apparent distress. CARDIOVASCULAR: Regular rate and rhythm without murmurs, gallops, or rubs. RESPIRATORY: Clear to auscultation. Breath sounds equal bilaterally. No wheezes , rales, or rhonchi. GASTROINTESTINAL: Abdomen soft, non-tender, nondistended. No hepato-splenomegaly , or palpable masses. No guarding. MUSCULOSKELETAL: Extremities without clubbing, cyanosis, or edema. No joint tenderness, effusion, or edema noted. No calf tenderness. Negative Homans sign bilaterally. NEUROLOGICAL: Awake and alert. Cranial nerves II through XII intact. Motor and sensory grossly within normal limits. Five out of 5 muscle strength in all muscle groups. Normal speech. Pt update on day of discharge Tolerated renal diet. No abd pain, n/v/d/c. Hospital Course Epigastric pain. Resolved - continue with PPI pain control and antiemetics as needed- consult GI appreciate recommendations. No further imaging or procedures patient has recent egd /colonoscopy Tolerates renal diet ESRD on HD- consult nephrology. Continue HD Hypertension: resume BB- hold amlodipine- continue to monitor BP and adjust the regimen as needed. Diabetes mellitus 2 accu-check with SSI CAD: resume BB - resume Plavix after evaluated by GI. Of note had a stress test about six months ago with no ischemia. Generalized weakness- will consult PT DVT prophylaxis with SCD's Discussed Condition With Patient, nurse Patient improved, tolerates renal diet. DC home in stable condition to follow up as OP with PCP and consultants. Pt Condition on Discharge: Stable Discharge Disposition: Discharge Home Discharge Time: > 30 minutes Discharge Instructions DIET: Follow Instructions for: Dialysis Diet Activities you can perform: Regular-No Restrictions Follow up Referrals: Nephrology - 2-3 Days PCP Follow-up - 2-3 Days Continued Medications: Allopurinol (Allopurinol) 100 Mg Tab 100 MG PO DAILY for Gout, #30 TAB 0 Refills Amlodipine (Norvasc) 5 Mg Tab 5 MG PO DAILY for 30 Days, TAB Atorvastatin (Lipitor) 10 Mg Tab 10 MG PO HS for Cholesterol Management, #30 TAB 0 Refills B-Complex W/ C & Folic Acid (Renal Vitamin) 1 Tab 1 TAB PO DAILY, TAB Bisacodyl DR (Dulcolax DR) 5 Mg Tabdr 5 MG PO BID for Constipation, #30 TAB 0 Refills Brimonidine-Timolol Opth Drops (Combigan Opth Drops) 0.2-0.5% Soln 1 DROP EACH EYE Q12HR for Glaucoma for 14 Days, BOTTLE 0 Refills Qtybklnssk-Qjjoppthxrcvc-Jophmfdn (Tcwtuqgvub-Vutbiimukqksm-Mrqzcfto) 50-325-40 Mg Tab 1 TAB PO Q6H PRN for headache , #20 TAB Clopidogrel (Plavix) 75 Mg Tab 75 MG PO DAILY for Blood Clot Prevention, #30 TAB 0 Refills Rgzaeremryfuxtr-Ckewbgdcc-Alq-Alum-Simeth Liq (Magic Mouthwash Pediatric/Adult Liq) 60 Ml Susp 5 ML SWISH-SWAL ACHS for Mouth sores, #60 ML 0 Refills Each 5mL contains: Diphenydramine 4.5mg, Viscous Lidocaine 2% 10mg, Maalox Advanced Regular Strength 2.7ml Duloxetine DR (Cymbalta DR) 20 Mg Capdr 20 MG PO DAILY, #30 CAP 0 Refills Famotidine (Pepcid) 20 Mg Tab 20 MG PO BID, #20 TAB 0 Refills Fluticasone-Salmeterol Inh (Advair Diskus Inh) 250-50 Mcg/Blist Aer 1 PUFF INH BID, #1 INHALER 0 Refills Rinse mouth after use. Furosemide (Lasix) 80 Mg Tab 80 MG PO DAILY, #30 TAB 0 Refills Insulin Detemir Inj (Levemir Inj) 1,000 unit/ 10 ML Vial 10 UNITS SQ HS for 30 Days, INJECTION check blood sugar prior to taking Labetalol (Labetalol) 100 Mg Tab 50 MG PO BID for 30 Days, TAB check BP prior to taking hold for SBP < 130 and recheck after an hour Levetiracetam (Keppra) 500 Mg Tab 1000 MG PO TID for Control Seizures, #60 TAB 0 Refills Pantoprazole (Protonix) 40 Mg Tab 40 MG PO DAILY for Reflux, #30 TAB 0 Refills Sennosides-Docusate Sodium (Senna-Plus) 8.6-50 Mg Tab 1 TAB PO DAILY for Constipation, TAB 0 Refills Sevelamer Carbonate (Renvela) 800 Mg Tab 2400 MG PO TID for Control phosphorous levels, #90 TAB 0 Refills Take 3 tabs (2,400mg) three times a day with meals & 1 tab (800mg) with snacks Susan Sinclair MD Jan 17, 2018 10:10
--- NOTE | 2018-01-17 10:53 | HHI.NPPN ---
Subjective Complaints: Abdominal Pain, Chest Pain General Problems: Anemia Renal Failure: Chronic, End Stage Renal Disease Additional Remarks Patient is awake, not in distress, not fully oriented. Objective Data Data Vital Signs Date Time Temp Pulse Resp B/P (MAP) Pulse Ox O2 Delivery O2 Flow Rate FiO2 01/17/18 08:11 99 21 01/17/18 07:40 98.2 80 20 106/57 (73) 99 01/17/18 04:00 98.0 81 19 174/80 (111) 100 01/17/18 00:30 93 01/17/18 00:00 98.3 96 22 182/77 (112) 98 01/16/18 20:00 97.8 77 21 178/80 (112) 98 01/16/18 17:42 21 01/16/18 17:31 98.1 79 19 144/68 (93) 97 01/16/18 12:00 97.3 73 19 155/74 (101) 94 01/16/18 12:00 74 -: 01/17/18 0309 01/17/18 0309 Physical Exam General Appearance: Well Developed, No Acute Distress, Comfortable Throat Throat Exam: Oral Mucosa [place] & Moist Pulmonary Resp Exam: Clear Bilaterally, Breath Sounds Equal Cardiology CV Exam: Regular, Normal Sinus Rhythm Gastrointestinal/Abdomen GI Exam: Soft, Non-Tender, Bowel Sounds Present Musculoskeletal MS Exam: Joints Intact, Normal Tone, Unable to Ambulate Integumentary Skin Exam: Warm, Dry, Intact Extremeties Extremities Exam: Trace Edema Neurologic Neuro Exam: Alert, Awake Psychiatric Psych Exam: Appropriate Responses Assessment/Plan Discussed Condition With: Patient Assessment Summary: Anemia of CKD, End Stage Renal Disease Problem List: (1) ESRD (end stage renal disease) ICD Codes: N18.6 - End stage renal disease Status: Chronic Plan: Dialysis MWF, Monitor fluid and electrolytes. Avoid Gadolinium. Avoid excessive fluid administration. patent AVF for dialysis. HD done yesterday. Patient is not fully oriented, not sure if this is new. Need to be observed and work up if not better. (2) Anemia ICD Codes: D64.9 - Anemia, unspecified Status: Acute Plan: Hemoglobin is acceptable. Low dose Epogen with dialysis . (3) HTN (hypertension) ICD Codes: I10 - Essential (primary) hypertension Status: Chronic Plan: BP is acceptable, continue home medications. (4) DM2 (diabetes mellitus, type 2) ICD Codes: E11.9 - Type 2 diabetes mellitus without complications Status: Chronic Plan: insulin coverage if needed. Maintain blood glucose between 140 and 180 Problem Qualifiers (1) HTN (hypertension): Qualified Codes: I10 - Essential (primary) hypertension Kelsy Parsad MD Jan 17, 2018 10:53
[2018-01-17] MEDS: PANTOPRAZOLE SODIUM 40 MG VIAL IV PUSH SCH (13:06)
== END 2018-01-17 13:55 | disposition home or self-care (01) | DRG 391 ==
LOC: NEPC 09:53 → NEDH 13:15 → N05A 17:36
PROVIDERS: ADMIT Hospitalist; ATTEND Hospitalist
PROC: 5A1D70Z Performance of Urinary Filtration, Intermittent, Less than 6 Hours Per Day (ICD-10-PCS; principal; 2018-01-16)
DX: R10.13 Epigastric pain (principal); N18.6 End stage renal disease; J81.1 Chronic pulmonary edema; I12.0 Hypertensive chronic kidney disease with stage 5 chronic kidney disease or end stage renal disease; E11.22 Type 2 diabetes mellitus with diabetic chronic kidney disease; Z99.2 Dependence on renal dialysis; I25.10 Atherosclerotic heart disease of native coronary artery without angina pectoris; H54.7 Unspecified visual loss; K64.9 Unspecified hemorrhoids; K29.70 Gastritis, unspecified, without bleeding; E78.5 Hyperlipidemia, unspecified; R53.1 Weakness; K80.20 Calculus of gallbladder without cholecystitis without obstruction; F32.9 Major depressive disorder, single episode, unspecified; F41.9 Anxiety disorder, unspecified; M19.90 Unspecified osteoarthritis, unspecified site; Z95.1 Presence of aortocoronary bypass graft; D63.1 Anemia in chronic kidney disease; K59.00 Constipation, unspecified; Z79.4 Long term (current) use of insulin; Z79.02 Long term (current) use of antithrombotics/antiplatelets
CPT/HCPCS: 70450; 71045; 74176; 80048; 80053; 82550; 82948; 83605; 83690; 84484; 85025; 85610; 85730; 87040; 90935; 93005; 96360; 96374; C9113; J0456; J0692; J1170; J1815; J2270; J2405; J7040; J7050

== ENCOUNTER → 2018-04-09 | Outpatient (CLI) | payer MEDICARE, MEDICAID ==
[2018-04-09 10:42] LABS: ALBUMIN 3.4 GM/DL (3.4-5.0); AST (GOT) 11 U/L (15-37); BICARBONATE 30.9 MEQ/L (21.0-32.0); BLOOD UREA NITROGEN 44 MG/DL (7-18); CALCIUM 7.7 MG/DL (8.5-10.1); CHLORIDE 103 MEQ/L (98-107); CREATININE 7.29 MG/DL (0.50-1.00); GLOMERULAR FILTRATION RATE 7 ML/MIN (>89); GLUCOSE,FASTING 82 MG/DL (74-99); SODIUM (NA) 142 MEQ/L (136-145)
[2018-04-09 10:44] LABS: ALKALINE PHOSPHATASE 102 U/L (45-117); ALT (GPT) 11 U/L (10-53); TOTAL BILIRUBIN ADULT 0.5 MG/DL (0.2-1.0); TOTAL PROTEIN 7.9 GM/DL (6.4-8.2)
[2018-04-09 20:34] LABS: HEMOGLOBIN A1C 5.5 % (4.3-6.0)
== END ==
LOC: ELAB 07:42
PROVIDERS: ATTEND Family Medicine
DX: E11.40 Type 2 diabetes mellitus with diabetic neuropathy, unspecified (principal)
CPT/HCPCS: 36415; 80053; 83036

== ENCOUNTER 2018-07-08 12:01 | Inpatient (IN) ==
--- NOTE | 2018-07-08 12:29 | ED ---
HPI General Chief complaint: Chest Pain Stated complaint: Chest pain Time Seen by Provider: 07/08/18 12:11 Source: EMS Mode of arrival: EMS Limitations: altered mental status History of Present Illness HPI narrative: Patient is a 57-year-old female presenting from home via EMS for evaluation of altered mental status and chest pain. Patient had hemodialysis this morning, her significant other picked her up and states that she has been acting differently since that time. She complains of anterior chest wall pain. It is tender to palpation. H&P is limited due to patient's mental status. Per EMS patient's speech is always garbled as they have picked her up in the past. Initially patient systolic blood pressure was in the 110s, it dropped down to 76. Patient is moaning, again H&P is limited due to patient's mental status. She has a history of end-stage renal disease on hemodialysis, type 2 diabetes, hypertension, she also has a prescription for midodrine. Blood glucose is 132. MD complaint: Altered mental status, chest pain Onset (ago): unknown Location: chest Severity scale (1-10): 6 Quality: aching Pain Consistency: constant Relieving factors: none Exacerbating factors: movement Treatments prior to arrival: none Related Data Home Medications Medication Instructions Recorded Confirmed B complex with C#20-folic acid 1 cap PO DAILY 05/19/18 07/08/18 [Renal Caps] allopurinol [Zyloprim] 100 mg PO DAILY 05/19/18 07/08/18 atorvastatin [Lipitor] 10 mg PO DAILY 05/19/18 07/08/18 bisacodyl [Dulcolax (bisacodyl)] 5 mg PO BID 05/19/18 07/08/18 brimonidine-timolol 1 drp EACH EYE Q12H 05/19/18 07/08/18 calcium acetate 667 mg PO TID 05/19/18 07/08/18 duloxetine [Cymbalta] 20 mg PO DAILY 05/19/18 07/08/18 erythromycin ethylsuccinate 200 mg PO DAILY 05/19/18 07/08/18 [EryPed 200] famotidine [Pepcid] 20 mg PO BID 05/19/18 07/08/18 fluticasone-salmeterol [Advair 1 inh INHALATION BID 05/19/18 07/08/18 Diskus] furosemide [Lasix] 80 mg PO DAILY 05/19/18 07/08/18 insulin detemir U-100 [Levemir 10 unit SUB-Q HS 05/19/18 07/08/18 U-100 Insulin] labetalol 50 mg PO BID 05/19/18 07/08/18 midodrine 10 mg PO TID 05/19/18 07/08/18 promethazine 25 mg PO BID PRN 05/19/18 07/08/18 sennosides-docusate sodium [Senna 1 tab PO DAILY 05/19/18 07/08/18 Plus] warfarin [Coumadin] 5 mg PO DAILY 05/19/18 07/08/18 Allergies Allergy/AdvReac Type Severity Reaction Status Date / Time acetaminophen Allergy Severe VOMITING Verified 05/19/18 09:05 linezolid Allergy Severe VOMITING Verified 05/19/18 09:05 piperacillin Allergy Severe VOMITING Verified 05/19/18 09:05 simvastatin Allergy Severe VOMITING Verified 05/19/18 09:05 tazobactam Allergy Severe VOMITING Verified 05/19/18 09:05 oxycodone AdvReac Severe VOMITING Verified 05/19/18 09:05 Review of Systems ROS Unobtainable ROS Unobtainable: unobtainable due to mental status PMFSH History History Provided By: Medical Record and School Program Director / EMT Medical History Medical History COPD (chronic obstructive pulmonary disease) (Acute) Chronic anticoagulation (Acute) Depression with anxiety (Acute) Diabetes mellitus (Acute) Gastroparesis (Acute) Glaucoma (Acute) Gout (Acute) Hyperlipidemia (Acute) Tobacco abuse (Acute) Dialysis patient (Chronic) ESRD (end stage renal disease) on dialysis (Chronic) Hypertension (Chronic) Type 2 diabetes mellitus (Chronic) Family History Family History Other End stage renal disease Family history of diabetes mellitus Family history of hypertension Social History Social History Substance History: Unable to Obtain Second Hand Smoke Exposure: No Smoking Status: Unknown if ever smoked Tobacco Type: Cigarettes How Often Do You Have a Drink Containing Alcohol: Unable to Obtain Hx Recent Travel: No Recent Travel in [place] within the Last 8 Weeks: No Recent Out of Country Travel within the Last 8 Weeks: No Exam Narrative Exam Narrative: GENERAL: Overweight, well-developed, awake, altered appearing -[place] female. Presenting in no acute distress. SKIN: Focused skin assessment warm/dry. HEAD: Atraumatic. Normocephalic. EYES: Pupils equal and round. No scleral icterus. No injection or drainage. ENT: No nasal bleeding or discharge. Mucous membranes pink and moist. NECK: Trachea midline. No JVD. CARDIOVASCULAR: Tachycardic. No murmur appreciated. Tenderness to palpation on anterior chest wall. RESPIRATORY: No accessory muscle use. Clear to auscultation. Breath sounds equal bilaterally. GASTROINTESTINAL: Abdomen soft, non-tender, nondistended. Hepatic and splenic margins not palpable. MUSCULOSKELETAL: No obvious deformities. No clubbing. No cyanosis. No edema. NEUROLOGICAL: Awake and alert. No obvious cranial nerve deficits. Motor grossly within normal limits. Garbled speech Course Hospital Course: Patient with persistent tachycardia that resolved after she was given IV push of adenosine 6 mg. Hemodynamically stable. Admitted for further evaluation. Initial Documented Vital Signs Temperature 97.8 F 07/08/18 12:07 Pulse Rate 90 07/08/18 12:07 Respiratory Rate 20 07/08/18 12:07 Blood Pressure 89/56 L 07/08/18 12:07 Pulse Oximetry 94 L 07/08/18 12:07 Last Documented Vital Signs Temperature 99.0 F 07/08/18 17:02 Pulse Rate 84 07/08/18 17:02 Respiratory Rate 20 07/08/18 17:02 Blood Pressure 185/89 H 07/08/18 17:02 Pulse Oximetry 100 07/08/18 17:02 Critical Care Time Critical Care Time: Yes Total Critical Care Time: 30 Attestation: Aggregate critical care time was 30 minutes. Time to perform other separately billable procedures was not included in the critical care time. My time did not include minutes spent treating any other patients simultaneously or on activities that did not directly contribute to the patient's treatment. The services I provided to this patient were to treat and/or prevent clinically significant deterioration that could result in: I provided critical care services requiring my management, as noted below: Chart data review, documentation time, medication orders and management, vital sign assessments/reviewing monitor data, ordering and reviewing lab tests, ordering and interpreting/reviewing x-rays and diagnostic studies, care of the patient and discussion of the patient with the admitting physicians. Medical Decision Making MDM Narrative Medical decision making narrative: Patient is a 57-year-old female presenting for evaluation of altered mental status and chest pain. Patient is hypotensive and tachycardic on arrival. Symptoms appear to have started when she got home from dialysis. Patient does states she was dialyzed for 3 hours this morning. Chest pain is reproducible on palpation. Workup initiated, IV access established, patient placed on telemetry monitoring continuous pulse oximetry. Medical Screen Exam Complete: Yes Emergency Medical Condition: Yes Differential Diagnosis Differential Diagnosis: CVA versus TIA versus ACS versus [place] versus metabolic abnormality versus other Medical Records Medical records reviewed: Yes I reviewed the patient's medical records. Lab Data Result diagrams: 07/08/18 12:23 07/08/18 12:23 Lab Results 07/08/18 07/08/18 07/08/18 Range/Units 12:23 12:23 12:23 WBC 7.4 (4.0-11.0) th/mm3 RBC 3.37 L (4.00-5.30) mil/mm3 Hgb 10.9 L (11.6-15.3) gm/dL Hct 32.4 L (35.0-46.0) % MCV 96.1 (80.0-100.0) fL MCH 32.4 (27.0-34.0) pg MCHC 33.7 (32.0-36.0) % RDW 18.1 H (11.6-17.2) % Plt Count 230 (150-450) th/mm3 MPV 9.3 (7.0-11.0) fL Neut % (Auto) 70.2 H (16.0-70.0) % Lymph % (Auto) 17.4 (9.0-44.0) % Ellis % (Auto) 9.0 H (0.0-8.0) % Eos % (Auto) 2.8 (0.0-4.0) % Baso % (Auto) 0.6 (0.0-2.0) % Neut # (Auto) 5.2 (1.8-7.7) th/mm3 Lymph # (Auto) 1.3 (1.0-4.8) th/mm3 Ellis # (Auto) 0.7 (0.0-0.9) th/mm3 Eos # (Auto) 0.2 (0.0-0.4) th/mm3 Baso # (Auto) 0.0 (0.0-0.2) th/mm3 WBC Differential . Differential Comment Auto diff final PT 11.6 (9.8-11.6) sec INR 1.1 Ratio APTT 27.7 (24.3-30.1) sec Sodium 139 (136-145) meq/L Potassium 4.3 (3.5-5.1) meq/L Chloride 97 L (98-107) meq/L Carbon Dioxide 31.6 (21.0-32.0) meq/L Anion Gap 10 (5-15) meq/L BUN 24 H (7-18) mg/dL Creatinine 5.04 H (0.50-1.00) mg/dL Estimated GFR 11 L (>89) mL/min POC Glucose (68-110) mg/dl Random Glucose 115 H (74-106) mg/dL Calcium 8.1 L (8.5-10.1) mg/dL Total Bilirubin 0.6 (0.2-1.0) mg/dL AST 16 (15-37) U/L ALT 11 (10-53) U/L Alkaline Phosphatase 105 (45-117) U/L Total Creatine Kinase (26-192) U/L Troponin I Less than 0.02 L (0.02-0.05) ng/mL Total Protein 8.7 H (6.4-8.2) g/dL Albumin 3.7 (3.4-5.0) g/dL 07/08/18 07/08/18 07/08/18 Range/Units 12:23 16:31 17:11 WBC (4.0-11.0) th/mm3 RBC (4.00-5.30) mil/mm3 Hgb (11.6-15.3) gm/dL Hct (35.0-46.0) % MCV (80.0-100.0) fL MCH (27.0-34.0) pg MCHC (32.0-36.0) % RDW (11.6-17.2) % Plt Count (150-450) th/mm3 MPV (7.0-11.0) fL Neut % (Auto) (16.0-70.0) % Lymph % (Auto) (9.0-44.0) % Ellis % (Auto) (0.0-8.0) % Eos % (Auto) (0.0-4.0) % Baso % (Auto) (0.0-2.0) % Neut # (Auto) (1.8-7.7) th/mm3 Lymph # (Auto) (1.0-4.8) th/mm3 Ellis # (Auto) (0.0-0.9) th/mm3 Eos # (Auto) (0.0-0.4) th/mm3 Baso # (Auto) (0.0-0.2) th/mm3 WBC Differential Differential Comment PT (9.8-11.6) sec INR Ratio APTT (24.3-30.1) sec Sodium (136-145) meq/L Potassium (3.5-5.1) meq/L Chloride (98-107) meq/L Carbon Dioxide (21.0-32.0) meq/L Anion Gap (5-15) meq/L BUN (7-18) mg/dL Creatinine (0.50-1.00) mg/dL Estimated GFR (>89) mL/min POC Glucose 92 (68-110) mg/dl Random Glucose (74-106) mg/dL Calcium (8.5-10.1) mg/dL Total Bilirubin (0.2-1.0) mg/dL AST (15-37) U/L ALT (10-53) U/L Alkaline Phosphatase (45-117) U/L Total Creatine Kinase 79 123 (26-192) U/L Troponin I 0.16 H D (0.02-0.05) ng/mL Total Protein (6.4-8.2) g/dL Albumin (3.4-5.0) g/dL 07/08/18 Range/Units 18:44 WBC (4.0-11.0) th/mm3 RBC (4.00-5.30) mil/mm3 Hgb (11.6-15.3) gm/dL Hct (35.0-46.0) % MCV (80.0-100.0) fL MCH (27.0-34.0) pg MCHC (32.0-36.0) % RDW (11.6-17.2) % Plt Count (150-450) th/mm3 MPV (7.0-11.0) fL Neut % (Auto) (16.0-70.0) % Lymph % (Auto) (9.0-44.0) % Ellis % (Auto) (0.0-8.0) % Eos % (Auto) (0.0-4.0) % Baso % (Auto) (0.0-2.0) % Neut # (Auto) (1.8-7.7) th/mm3 Lymph # (Auto) (1.0-4.8) th/mm3 Ellis # (Auto) (0.0-0.9) th/mm3 Eos # (Auto) (0.0-0.4) th/mm3 Baso # (Auto) (0.0-0.2) th/mm3 WBC Differential Differential Comment PT (9.8-11.6) sec INR Ratio APTT (24.3-30.1) sec Sodium (136-145) meq/L Potassium (3.5-5.1) meq/L Chloride (98-107) meq/L Carbon Dioxide (21.0-32.0) meq/L Anion Gap (5-15) meq/L BUN (7-18) mg/dL Creatinine (0.50-1.00) mg/dL Estimated GFR (>89) mL/min POC Glucose 83 (68-110) mg/dl Random Glucose (74-106) mg/dL Calcium (8.5-10.1) mg/dL Total Bilirubin (0.2-1.0) mg/dL AST (15-37) U/L ALT (10-53) U/L Alkaline Phosphatase (45-117) U/L Total Creatine Kinase (26-192) U/L Troponin I (0.02-0.05) ng/mL Total Protein (6.4-8.2) g/dL Albumin (3.4-5.0) g/dL Imaging Data Radiologist's impression: Carotid Doppler Study 07/08/18 00:00 CONCLUSION: No hemodynamically significant stenosis in either carotid artery. Chest X-Ray 07/08/18 12:11 CONCLUSION: Negative examination. Head CT 07/08/18 12:11 CONCLUSION: 1. No acute infarct, acute hemorrhage, midline shift or extra-axial fluid collections. 2. Mild periventricular and subcortical white matter small vessel ischemic changes bilaterally. 3. Scattered old tiny lacunar infarcts within the bilateral basal ganglia. 4. Renal osteodystrophy. . ECG Data Attestation: I personally reviewed and interpreted this ECG as follows: Interpretation: Sinus tachycardia 135 bpm with left axis deviation. Intraventricular conduction delay. Nonspecific ST-T wave abnormalities. No signs of acute ischemia. Discharge Plan Discharge Disposition Patient Disposition: 30 Still Patient Physicians Team ED Provider: Milad Mcdaniel ED Midlevel Provider: Елена Garzon Primary Care Provider: UNKNOWN, Attending Provider: Corey Leyva Status ED Status: Admitted Observation Patient
[2018-07-08 12:41] LABS: Baso % (Auto) 0.6 % (0.0-2.0); Eos # (Auto) 0.2 th/mm3 (0.0-0.4); Eos % (Auto) 2.8 % (0.0-4.0); Hematocrit 32.4 % (35.0-46.0); Hemoglobin 10.9 gm/dL (11.6-15.3); Lymph # (Auto) 1.3 th/mm3 (1.0-4.8); Lymph % (Auto) 17.4 % (9.0-44.0); Mean Corpuscular HGB Conc 33.7 % (32.0-36.0); Mean Corpuscular Hemoglobin 32.4 pg (27.0-34.0); Mean Corpuscular Volume 96.1 fL (80.0-100.0); Mean Platelet Volume 9.3 fL (7.0-11.0); Mono # (Auto) 0.7 th/mm3 (0.0-0.9); Neut # (Auto) 5.2 th/mm3 (1.8-7.7); Neut % (Auto) 70.2 % (16.0-70.0); Platelet Count 230 th/mm3 (150-450); Red Blood Count 3.37 mil/mm3 (4.00-5.30); Red Cell Distribution Width 18.1 % (11.6-17.2); White Blood Count 7.4 th/mm3 (4.0-11.0)
[2018-07-08 12:49] LABS: Activated Partial Thrombo Time 27.7 sec (24.3-30.1); INR 1.1 Ratio; Prothrombin Time 11.6 sec (9.8-11.6)
--- NOTE | 2018-07-08 12:59 | XR ---
EXAM DATE: 07/08/2018 12:56 PM EDT AGE/SEX: 57 years / Female INDICATIONS: Unresponsive CLINICAL DATA: This is the patient's initial encounter. Patient reports that signs and symptoms have been present for 1 day and indicates a pain score of Nonresponsive. MEDICAL/SURGICAL HISTORY: Non-responsive. Non-responsive. COMPARISON: [facility] – [place], [place]ST 1V SINGLE AP, 05/19/2018. . FINDINGS: A single AP view of the chest demonstrates the lungs to be symmetrically aerated without evidence of mass, infiltrate or effusion. The cardiomediastinal contours are unremarkable. Osseous structures a re intact. CONCLUSION: Negative examination. Electronically signed by: Chauncey Roman MD 07/08/2018 12:58 PM EDT
[2018-07-08] MEDS ORDERED: Sodium Chlor 0.9% Inj 500 ML IV.SIG SCH (13:00)
[2018-07-08 13:04] LABS: Albumin 3.7 g/dL (3.4-5.0); Anion Gap 10 meq/L (5-15); Aspartate Aminotransferase 16 U/L (15-37); Blood Urea Nitrogen 24 mg/dL (7-18); Calcium 8.1 mg/dL (8.5-10.1); Carbon Dioxide 31.6 meq/L (21.0-32.0); Chloride 97 meq/L (98-107); Glomerular Filtration Rate 11 mL/min (>89); Glucose,Random 115 mg/dL (74-106); Potassium 4.3 meq/L (3.5-5.1); Sodium 139 meq/L (136-145)
[2018-07-08 13:09] LABS: Alanine Aminotransferase 11 U/L (10-53); Alkaline Phosphatase 105 U/L (45-117); Total Protein 8.7 g/dL (6.4-8.2)
[2018-07-08] MEDS ORDERED: Adenosine Inj 6 MG/2 ML Syringe IV.PUSH ONE (13:36)
--- NOTE | 2018-07-08 13:49 | CT ---
EXAM DATE: 07/08/2018 1:39 PM EDT AGE/SEX: 57 years / Female INDICATIONS: Chest pain and altered mental status during dialysis CLINICAL DATA: This is the patient's initial encounter. Patient reports that signs and symptoms have been present for 1 day and indicates a pain score of Nonresponsive. MEDICAL/SURGICAL HISTORY: Renal disease. Hyperparathyroidism. Diabetes mellitus type II. None. RADIATION DOSE: 44.81 CTDI (mGy) COMPARISON: [facility] – [place], 01/15/2018. [facility] [place], 09/15/2017. . TECHNIQUE: CT of the head without contrast. Using automated exposure control and adjustment of the mA and/or kV according to patient size, radiation dose was kept as low as reasonably achievable to ob tain optimal diagnostic quality images. DICOM format image data is available electronically for revi ew and comparison. FINDINGS: Cerebrum: The ventricles are normal for age. No evidence of midline shift, mass lesion, hemorrhage or acute infarction. No extraaxial fluid collections are seen. Mild periventricular and subcortical white matter small vessel ischemic changes are noted bilaterally. Scattered old tiny lacunar infarcts are noted within the bilateral basal ganglia. Posterior Fossa: The cerebellum and brainstem are intact. The 4th ventricle is midline. The cerebe llopontine angle is unremarkable. Extracranial: The visualized portion of the orbits is intact. Skull: The calvaria is intact. No evidence of skull fracture. Renal osteodystrophy is noted. CONCLUSION: 1. No acute infarct, acute hemorrhage, midline shift or extra-axial fluid collections. 2. Mild periventricular and subcortical white matter small vessel ischemic changes bilaterally. 3. Scattered old tiny lacunar infarcts within the bilateral basal ganglia. 4. Renal osteodystrophy. . Electronically signed by: Daren Martin MD 07/08/2018 1:48 PM EDT
[2018-07-08] MEDS ORDERED: Zolpidem Tartrate 5 MG Tablet PO PRN (16:03)
[2018-07-08] MEDS ORDERED: Bisacodyl 10 MG Supp RECTAL PRN (16:03)
[2018-07-08] MEDS ORDERED: Dextrose 50% in Water 50 ML Vial IV.PUSH PRN ×2 (16:08→16:41)
[2018-07-08] MEDS ORDERED: Heparin - SQ 10,000 UNITS/ML Vial SQ SCH (17:00)
[2018-07-08 17:50] LABS: Troponin I 0.16 ng/mL (0.02-0.05)
--- NOTE | 2018-07-08 18:06 | US ---
EXAM DATE: 07/08/2018 6:02 PM EDT AGE/SEX: 57 years / Female INDICATIONS: Transient ischemic attack. CLINICAL DATA: This is the patient's initial encounter. Patient reports that signs and symptoms have been present for 1 day and indicates a pain score of 0/10. MEDICAL/SURGICAL HISTORY: Hypertension. Dialysis. ESRD. Diabetes. None. COMPARISON: . VELOCITY PARAMETERS: ICA/CCA Ratio: Right 1.5 , Left 1.5 ICA: Right 74.7 cm/sec, Left 68.5 cm/sec CCA: Right 48.2 cm/sec, Left 45.2 cm/sec ECA: Right 201.4 cm/sec, Left 98.4 cm/sec Vertebral: Right 64.8 cm/sec antegrade, Left 56.8 cm/sec antegrade FINDINGS: Right Carotid: Moderate arteriosclerotic plaque is visualized.The waveforms are within normal limits . Left Carotid: Moderate arteriosclerotic plaque is visualized. The waveforms are within normal limits . Other: None. CONCLUSION: No hemodynamically significant stenosis in either carotid artery. Electronically signed by: Michele Campos MD 07/08/2018 6:05 PM EDT
--- NOTE | 2018-07-08 18:40 | P.HPIM ---
History of Present Illness Service: [facility] Primary Care Physician: UNKNOWN Chief Complaint: CHEST PAIN AND ALTERED MENTAL STATUS History of Present Illness: Patient is a 57-year-old -Pakistani female who presented to the emergency department from home via EMS for evaluation of altered mental status and chest pain. Patient had just had hemodialysis this morning. And her significant other picked her up and states that she has been acting differently since that time. Patient also complained of anterior chest wall pain. Was tender to palpation and reproducible. The history is limited due to her mental status at this time. Per EMS patient speech is always garbled as they have picked her up in the past and initially patient's systolic blood pressure was in the 110s and then dropped to 76. She was moaning and mental status was not so good when seen in the emergency department. Had a history of end-stage renal disease on hemodialysis, as well as diabetes mellitus type 2 and hypertension and what sounds like medical noncompliance also has a history of gout and hyperlipidemia and depression anxiety as well as COPD diabetes chronic Coumadin use for unknown reason. Had also been on Midrin but again it did not take any of her medications prior to coming to the hospital. Chest pain was 6 out of 10 constant and achy Patient will be admitted for altered mental status and questionable TIA and chest pain rule out. 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 Operator / EMT - Medical History Medical History: Medical History (Last Updated 07/08/18 @ 18:29 by Corey Leyav DO) COPD (chronic obstructive pulmonary disease) Chronic anticoagulation Depression with anxiety Diabetes mellitus Gastroparesis Glaucoma Gout Hyperlipidemia Tobacco abuse Dialysis patient ESRD (end stage renal disease) on dialysis Hypertension Type 2 diabetes mellitus - Family History Family History: Family History (Last Updated 07/08/18 @ 18:29 by Corey Leyva DO) Other End stage renal disease Family history of diabetes mellitus Family history of hypertension - Social History I have reviewed the patient's Social History: Yes - Tobacco History Second Hand Smoke Exposure: No Tobacco Use In Past 30 Days: No Smoking Status: Unknown if ever smoked Tobacco Type: Cigarettes - Alcohol History How Often Do You Have a Drink Containing Alcohol: Unable to Obtain - Substance Use History Substance History: Unable to Obtain - Travel History History of Recent Travel: No Recent Travel in the [place] Within the Last 8 Weeks: No Recent Travel Out of the Country Within the Last 8 Weeks: No - Immunization History Tetanus Immunization: Unable to Assess Hx Influenza Vaccine This Season: Unable to Assess Medications and Allergies Active Medications: Active Medications Al Hydroxide/Mg Hydroxide (Milk Of Magnesia Liq) 30 ml PO Q12H PRN PRN Reason: Mild Constipation Allopurinol (Zyloprim) 100 mg PO DAILY [facility] Aspirin (Aspirin) 325 mg PO DAILY [facility] Atorvastatin Calcium (Lipitor) 10 mg PO DAILY [facility] Bisacodyl (Dulcolax Supp) 10 mg RECTAL DAILY PRN PRN Reason: SEVERE CONSITIPATION Budesonide/Formoterol Fumarate (Symbicort 160/4.5 Mcg Inh) 1 puff INH BID [facility] Calcium Acetate (Phoslo) 667 mg PO TIDAC [facility] Dextrose (D50w Vial) 50 ml IV.PUSH UNSCH PRN PRN Reason: PER HYPOGLYCEMIA PROTOCOL Duloxetine HCl (Cymbalta) 20 mg PO DAILY [facility] Erythromycin Ethylsuccinate (Ees 200 Mg/5 Ml Liq) 200 mg PO DAILY [facility] Famotidine (Pepcid) 10 mg PO BID [facility] Furosemide (Lasix) 80 mg PO DAILY [facility] Glucagon (Glucagon Inj) 1 mg OTHER PRN PRN PRN Reason: for Hypoglycemia Protocol Heparin Sodium (Porcine) (Heparin Inj) 5,000 units SQ Q8H [facility] Sodium Chloride (Ns Inj) 500 mls @ 0 mls/hr IV.SIG BOLUS [facility] Last Infusion: 07/08/18 13:36 Dose: Infused Insulin Aspart (Novolog Insulin Correctional Sugar Inj) 0 unit SQ ACHS AND 3AM [facility]; Protocol Labetalol HCl (Trandate) 50 mg PO BID [facility] Lactulose (Lactulose Liq) 30 ml PO DAILY PRN PRN Reason: SEVERE CONSITIPATION Midodrine (Proamatine) 10 mg PO TID [facility] Miscellaneous (Pill Splitter) 1 each OTHER UNSCH PRN PRN Reason: PILL SPIT Ondansetron HCl (Zofran Inj) 4 mg IV.PUSH Q6H PRN PRN Reason: NAUSEA OR VOMITING Pt Own (Brimonidine- Timolol [Brimonidine -Timolol] 1 Drp) 1 each EACH EYE BID [facility] Promethazine HCl (Phenergan) 25 mg PO BID PRN PRN Reason: Nausea Senna/Docusate Sodium (Maya-Colace) 1 tab PO DAILY [facility] Sennosides (Senokot) 17.2 mg PO Q12H PRN PRN Reason: Moderate Constipation Sodium Chloride (Ns Flush) 2 ml IV.FLUSH PRN PRN PRN Reason: FLUSH AFTER USING IV ACCESS Vitamin B Complex/Vit C/Folic Acid (Nephrocaps) 1 tab PO DAILY [facility] Warfarin Sodium (Coumadin) 5 mg PO DAILY@1600 [facility] Zolpidem Tartrate (Ambien) 5 mg PO HS PRN PRN Reason: INSOMNIA Allergies Allergy/AdvReac Type Severity Reaction Status Date / Time acetaminophen Allergy Severe VOMITING Verified 05/19/18 09:05 linezolid Allergy Severe VOMITING Verified 05/19/18 09:05 piperacillin Allergy Severe VOMITING Verified 05/19/18 09:05 simvastatin Allergy Severe VOMITING Verified 05/19/18 09:05 tazobactam Allergy Severe VOMITING Verified 05/19/18 09:05 oxycodone AdvReac Severe VOMITING Verified 05/19/18 09:05 Home Medications Medication Instructions Recorded Confirmed Type B complex with C#20-folic acid 1 cap PO DAILY 05/19/18 07/08/18 History [Renal Caps] allopurinol [Zyloprim] 100 mg PO DAILY 05/19/18 07/08/18 History atorvastatin [Lipitor] 10 mg PO DAILY 05/19/18 07/08/18 History bisacodyl [Dulcolax (bisacodyl)] 5 mg PO BID 05/19/18 07/08/18 History brimonidine-timolol 1 drp EACH EYE Q12H 05/19/18 07/08/18 History calcium acetate 667 mg PO TID 05/19/18 07/08/18 History duloxetine [Cymbalta] 20 mg PO DAILY 05/19/18 07/08/18 History erythromycin ethylsuccinate 200 mg PO DAILY 05/19/18 07/08/18 History [EryPed 200] famotidine [Pepcid] 20 mg PO BID 05/19/18 07/08/18 History fluticasone-salmeterol [Advair 1 inh INHALATION BID 05/19/18 07/08/18 History Diskus] furosemide [Lasix] 80 mg PO DAILY 05/19/18 07/08/18 History insulin detemir U-100 [Levemir 10 unit SUB-Q HS 05/19/18 07/08/18 History U-100 Insulin] labetalol 50 mg PO BID 05/19/18 07/08/18 History midodrine 10 mg PO TID 05/19/18 07/08/18 History promethazine 25 mg PO BID PRN 05/19/18 07/08/18 History sennosides-docusate sodium [Senna 1 tab PO DAILY 05/19/18 07/08/18 History Plus] warfarin [Coumadin] 5 mg PO DAILY 05/19/18 07/08/18 History Exam Vital signs: Vital Signs 07/08/18 12:07 07/08/18 12:12 07/08/18 13:45 Temperature 97.8 F Pulse Rate 90 135 H 92 H Respiratory Rate 20 22 18 Blood Pressure 89/56 L 79/50 L 148/77 H Pulse Oximetry 94 L 95 100 07/08/18 17:02 Temperature 99.0 F Pulse Rate 84 Respiratory Rate 20 Blood Pressure 185/89 H Pulse Oximetry 100 Intake & Output 07/07/18 07/08/18 07/08/18 18:59 06:59 18:59 Intake Total 500 / 500 Balance 500 / 500 Weight 90.718 kg Intake: IV 500 / 500 NS Inj 500 ML @ Wide Open IV. 500 / 500 SIG BOLUS [facility] Rx#:[id number] Narrative: GENERAL: Awake and alert oriented 2-3 sort of but slow to respond and very lethargic SKIN: Warm and dry. HEAD: Atraumatic. Normocephalic. EYES: Pupils equal and round. No scleral icterus. No injection or drainage. ENT: No nasal bleeding or discharge. Mucous membranes pink and moist. NECK: Trachea midline. No JVD. CARDIOVASCULAR: Regular rate and rhythm. S1-S2 no S3 or S4 RESPIRATORY: No accessory muscle use. Clear to auscultation. Breath sounds equal bilaterally. GASTROINTESTINAL: Abdomen soft, non-tender, nondistended. Hepatic and splenic margins not palpable. Obese MUSCULOSKELETAL: Extremities without clubbing, cyanosis, or edema. No obvious deformities. NEUROLOGICAL: Awake and alert. No obvious cranial nerve deficits. Motor grossly within normal limits. For out of 5 muscle strength in the arms and legs. ABNormal speech some slightly slurred speech. PSYCHIATRIC: INAppropriate mood and affect; insight and judgment ABnormal. Results - Labs CBC & Chem 7: 07/08/18 12:23 07/08/18 12:23 Labs: Short CBC 07/08/18 Range/Units 12:23 WBC 7.4 (4.0-11.0) th/mm3 Hgb 10.9 L (11.6-15.3) gm/dL Hct 32.4 L (35.0-46.0) % Plt Count 230 (150-450) th/mm3 BMP 07/08/18 12:23 Sodium 139 Potassium 4.3 Chloride 97 L Carbon Dioxide 31.6 BUN 24 H Creatinine 5.04 H Calcium 8.1 L Cardiac Enzymes 07/08/18 07/08/18 07/08/18 Range/Units 12:23 12:23 17:11 Total Creatine Kinase 79 123 (26-192) U/L Troponin I Less than 0.02 L 0.16 H D (0.02-0.05) ng/mL Liver Function 07/08/18 Range/Units 12:23 Total Bilirubin 0.6 (0.2-1.0) mg/dL AST 16 (15-37) U/L ALT 11 (10-53) U/L Alkaline Phosphatase 105 (45-117) U/L Albumin 3.7 (3.4-5.0) g/dL - Imaging Impressions Carotid Doppler Study 07/08/18 00:00 CONCLUSION: No hemodynamically significant stenosis in either carotid artery. Chest X-Ray 07/08/18 12:11 CONCLUSION: Negative examination. Head CT 07/08/18 12:11 CONCLUSION: 1. No acute infarct, acute hemorrhage, midline shift or extra-axial fluid collections. 2. Mild periventricular and subcortical white matter small vessel ischemic changes bilaterally. 3. Scattered old tiny lacunar infarcts within the bilateral basal ganglia. 4. Renal osteodystrophy. . Caprini VTE Risk Assessment Caprini VTE Risk Assessment: Moderate/High Risk (score >= 2) Caprini Risk Assessment Model: Point Value = 1 Point Value = 2 Point Value = 3 Point Value = 5 Age 41-60 Minor surgery BMI > 25 kg/m2 Swollen legs Varicose veins or History of unexplained or recurrent spontaneous Oral contraceptives or hormone replacement Sepsis (< 1 month) Serious lung disease, including pneumonia (< 1 month) Abnormal pulmonary function Acute myocardial infarction Congestive heart failure (< 1 month) History of inflammatory bowel disease Medical patient at bed rest Age 61-74 Arthroscopic surgery Major open surgery (> 45 min) Laparoscopic surgery (> 45 min) Malignancy Confined to bed (> 72 hours) Immobilizing plaster cast Central venous access Age >= 75 History of VTE Family history of VTE Factor V Leiden Prothrombin [id number] Lupus anticoagulant Anticardiolipin antibodies Elevated serum homocysteine Heparin-induced thrombocytopenia Other congenital or acquired thrombophilia Stroke (< 1 month) Elective arthroplasty Hip, pelvis, or leg fracture Acute spinal cord injury (< 1 month) Prophylaxis Regimen: Total Risk Factor Score Risk Level Prophylaxis Regimen 0-1 Low Early ambulation 2 Moderate Order ONE of the following: *Sequential Compression Device (SCD) *Heparin 5000 units SQ BID 3-4 Higher Order ONE of the following medications: *Heparin 5000 units SQ TID *Enoxaparin/Lovenox 40 mg SQ daily (WT < 150 kg, CrCl > 30 mL/min) *Enoxaparin/Lovenox 30 mg SQ daily (WT < 150 kg, CrCl > 10-29 mL/min) *Enoxaparin/Lovenox 30 mg SQ BID (WT < 150 kg, CrCl > 30 mL/min) AND/OR *Sequential Compression Device (SCD) 5 or more Highest Order ONE of the following medications: *Heparin 5000 units SQ TID (Preferred with Epidurals) *Enoxaparin/Lovenox 40 mg SQ daily (WT < 150 kg, CrCl > 30 mL/min) *Enoxaparin/Lovenox 30 mg SQ daily (WT < 150 kg, CrCl > 10-29 mL/min) *Enoxaparin/Lovenox 30 mg SQ BID (WT < 150 kg, CrCl > 30 mL/min) AND *Sequential Compression Device (SCD) Assessment and Plan - Plan Altered mental status versus TIA -We will get MRI of the head, MRA of the neck, carotids and echo -Continue on an aspirin 325 mg daily -Continue neuro checks We will get a UA- -continue physical therapy and occupational therapy and speech therapy to all eval and treat -Hold off on neurology consult unless positive MRI Chest pain -Troponins and cardiac enzymes every 6 hours 3 -EKGs 3 -Aspirin -Check an echo Consult cardiology since troponins are slightly positive-but patient is a chronic renal failure patient Hypotension suspect secondary to too much fluid being taken off during hemodialysis -Resume her Midrin Hold blood pressure medications as needed We will hold her Lasix today End-stage renal disease -Monitor labs -Hold off on nephrology consult at this time Hyperlipidemia continue on statin Gout resume her allopurinol Glaucoma continue on her eyedrops Depression anxiety continue on Cymbalta GERD continue on Pepcid Diabetes mellitus continue on sliding scale coverage only and hold the Levemir Hypertension we will hold the labetalol and Lasix Chronic anticoagulation with Coumadin will restart Daily PT/INR We will check a TSH and a free T4 and hemoglobin A1c and a magnesium level and a phosphorus level in a.m. labs Code Status: Full code Discussed Condition With: RN and patient and emergency room physician regional administrative assistant Discharge Planning: Pending stabilization and improvement tomorrow
[2018-07-08] MEDS: Insulin NovoLOG Aspart Correctional Sugar Inj SQ SCH ×2 (18:47→22:29)
[2018-07-08] MEDS: Calcium Acetate 667 MG Capsule PO SCH (18:54)
[2018-07-08] MEDS: Vitamin B Complex/Vit C/Folic Tablet PO SCH (19:11)
[2018-07-08] MEDS: Senna/Docusate Sodium 8.6/50 MG Tablet PO SCH (19:11)
[2018-07-08] MEDS: Aspirin 325 MG Tablet PO SCH (19:12)
[2018-07-08] MEDS: Allopurinol 100 MG Tablet PO SCH (19:12)
[2018-07-08] MEDS: Erythromycin Ethylsuccinate Susp 200 MG/5 ML 100 ML Bottle PO SCH (19:14)
[2018-07-08] MEDS ORDERED: BRIMONIDINE TIMOLOL EACH EYE SCH (21:00)
[2018-07-08] MEDS ORDERED: Senna/Docusate Sodium 8.6/50 MG Tablet PO SCH (21:00)
[2018-07-08] MEDS: Labetalol 100 MG Tablet PO SCH (21:54)
[2018-07-08] MEDS: Famotidine 20 MG Tablet PO SCH (21:54)
[2018-07-08] MEDS ORDERED: Timolol 0.5% Drops 5 ML Bottle EACH EYE SCH (22:25)
[2018-07-08] MEDS ORDERED: Brimonidine 0.2% Opth Drops 5 ML Bottle EACH EYE SCH (22:30)
[2018-07-08 22:52] LABS: Troponin I 0.35 ng/mL (0.02-0.05)
[2018-07-08] MEDS ORDERED: Metoprolol Tartrate 25 MG Tablet PO ONE (23:29)
[2018-07-08] MEDS: Budesonide-Formoterol 160/4.5 MCG 6 GM Inhaler INH SCH (23:41)
[2018-07-08] MEDS: Heparin Drip 25,000 UNIT/250 ML BAG IV.CONT PRN (23:57)
[2018-07-09 00:29] LABS: Activated Partial Thrombo Time 27.7 sec (24.3-30.1); INR 1.1 Ratio; Prothrombin Time 11.3 sec (9.8-11.6)
[2018-07-09] MEDS: Insulin NovoLOG Aspart Correctional Sugar Inj SQ SCH ×5 (03:41→21:41)
[2018-07-09 05:37] LABS: Baso # (Auto) 0.1 th/mm3 (0.0-0.2); Baso % (Auto) 0.8 % (0.0-2.0); Eos # (Auto) 0.2 th/mm3 (0.0-0.4); Eos % (Auto) 2.9 % (0.0-4.0); Hemoglobin 10.2 gm/dL (11.6-15.3); Lymph # (Auto) 1.8 th/mm3 (1.0-4.8); Lymph % (Auto) 25.4 % (9.0-44.0); Mean Corpuscular HGB Conc 31.9 % (32.0-36.0); Mean Corpuscular Hemoglobin 31.5 pg (27.0-34.0); Mean Corpuscular Volume 98.6 fL (80.0-100.0); Mean Platelet Volume 9.4 fL (7.0-11.0); Mono # (Auto) 0.6 th/mm3 (0.0-0.9); Neut # (Auto) 4.4 th/mm3 (1.8-7.7); Neut % (Auto) 62.9 % (16.0-70.0); Platelet Count 215 th/mm3 (150-450); Red Blood Count 3.25 mil/mm3 (4.00-5.30); Red Cell Distribution Width 18.3 % (11.6-17.2)
[2018-07-09 05:54] LABS: INR 1.1 Ratio; Prothrombin Time 11.3 sec (9.8-11.6)
[2018-07-09 06:10] LABS: Alanine Aminotransferase 10 U/L (10-53); Albumin 3.5 g/dL (3.4-5.0); Alkaline Phosphatase 99 U/L (45-117); Anion Gap 11 meq/L (5-15); Aspartate Aminotransferase 12 U/L (15-37); Blood Urea Nitrogen 39 mg/dL (7-18); Calcium 8.4 mg/dL (8.5-10.1); Carbon Dioxide 29.7 meq/L (21.0-32.0); Chloride 98 meq/L (98-107); Chol/HDL Ratio 5.29 Ratio; Cholesterol 180 mg/dL (120-200); Free T4 (Free Thyroxine) 0.93 ng/dL (0.76-1.46); Glomerular Filtration Rate 8 mL/min (>89); Glucose,Random 132 mg/dL (74-106); LDL Cholesterol,Calculated 109 mg/dL (0-99); Magnesium 2.1 mg/dL (1.5-2.5); Phosphorus 5.3 mg/dL (2.5-4.9); Potassium 5.1 meq/L (3.5-5.1); Sodium 139 meq/L (136-145); Total Protein 8.3 g/dL (6.4-8.2); Triglycerides 184 mg/dL (42-150)
[2018-07-09] MEDS: Budesonide-Formoterol 160/4.5 MCG 6 GM Inhaler INH SCH ×2 (08:06→21:35)
[2018-07-09] MEDS: Furosemide 80 MG Tablet PO SCH (08:07)
[2018-07-09] MEDS: Calcium Acetate 667 MG Capsule PO SCH ×3 (08:07→16:24)
[2018-07-09] MEDS: Timolol 0.5% Drops 5 ML Bottle EACH EYE SCH ×2 (08:07→21:36)
[2018-07-09] MEDS: Brimonidine 0.2% Opth Drops 5 ML Bottle EACH EYE SCH ×2 (08:07→21:36)
[2018-07-09] MEDS: Aspirin 325 MG Tablet PO SCH (08:08)
[2018-07-09] MEDS: Vitamin B Complex/Vit C/Folic Tablet PO SCH (08:08)
[2018-07-09] MEDS: Allopurinol 100 MG Tablet PO SCH (08:08)
[2018-07-09] MEDS: Famotidine 20 MG Tablet PO SCH ×2 (08:08→21:35)
[2018-07-09] MEDS: Senna/Docusate Sodium 8.6/50 MG Tablet PO SCH (08:08)
[2018-07-09] MEDS: Labetalol 100 MG Tablet PO SCH ×2 (08:17→21:35)
--- NOTE | 2018-07-09 08:48 | ECHRPT ---
Indication: CHEST PAIN, + TROP CONCLUSIONS Normal left ventricular size. Wall thickness is measured at the upper limits of normal. The left ventricular systolic function is normal with an estimated ejection fraction of 55%. No segmental wall motion abnormalities. The left atrial size is mildly dilated. Aortic valve sclerosis is present. There is trace tricuspid valve regurgitation. The estimated pulmonary arterial pressure is 23 mmHg. BP: / HR: Rhythm: MEASUREMENTS (Male / Female) Normal Values Technical Quality: 2D ECHO LV Diastolic Diameter PLAX 5.0 cm 4.2 - 5.9 / 3.9 - 5.3 cm LV Systolic Diameter PLAX 3.8 cm IVS Diastolic Thickness 1.2 cm 0.6 - 1.0 / 0.6 - 0.9 cm LVPW Diastolic Thickness 0.9 cm 0.6 - 1.0 / 0.6 - 0.9 cm LV Relative Wall Thickness 0.4 RV Internal Dim ED PLAX 2.2 cm LA Systolic Diameter LX 5.3 cm 3.0 - 4.0 / 2.7 - 3.8 cm M-MODE AV Cusp Separation MM 2.0 cm DOPPLER TR Peak Velocity 178.7 cm/s TR Peak Gradient 12.8 mmHg Right Atrial Pressure 10.0 mmHg Pulmonary Artery Systolic Pressu 22.8 mmHg Right Ventricular Systolic Press 22.8 mmHg FINDINGS LEFT VENTRICLE Normal left ventricular size. Wall thickness is measured at the upper limits of normal. The left ventricular systolic function is normal with an estimated ejection fraction of 55%. RIGHT VENTRICLE Normal right ventricular size and systolic function. LEFT ATRIUM The left atrial size is mildly dilated. RIGHT ATRIUM The right atrial size is normal. ATRIAL SEPTUM Normal atrial septal thickness without atrial level shunting by limited color doppler interrogation. AORTA The aortic root and proximal ascending aorta are normal in size on limited imaging. MITRAL VALVE Structurally normal mitral valve. No mitral valve stenosis or regurgitation. AORTIC VALVE Aortic valve sclerosis is present. TRICUSPID VALVE There is trace tricuspid valve regurgitation. The estimated pulmonary arterial pressure is 23 mmHg. PULMONARY VALVE No pulmonary valve regurgitation or stenosis. VESSELS The inferior vena cava is normal in size. PERICARDIUM No pericardial effusion. Clarence Mata MD, FACC (Electronically Signed) Final Date:09 July 2018 08:48
[2018-07-09] MEDS: Erythromycin Ethylsuccinate Susp 200 MG/5 ML 100 ML Bottle PO SCH (09:04)
[2018-07-09] MEDS ORDERED: diazePAM 5 MG Tablet PO SCH (09:15)
--- NOTE | 2018-07-09 09:56 | MB ---
cc: Ronny Augustine MD DATE: 07/09/2018 REASON FOR CONSULTATION: Evaluation of elevated troponin and chest pain. HISTORY OF PRESENT ILLNESS: Mariza Morales is a 57-year-old -[place] female brought into the ER for altered mental status and chest pain. Her blood pressure was documented as 79/50 at 12:12 p.m. yesterday. The patient states she went to dialysis, which she normally does have Mondays, Friday, and Fridays. After dialysis, her boyfriend took her home. She was unstable on her feet. She started complaining of chest pain. Her person who cleans her house said she should be taken to the ER, so she was brought in and found to be hypotensive. The patient is normally on midodrine 10 mg t.i.d., but is also listed as being on labetalol for hypertension. Initial troponin was normal, but then sarbjit to 0.16 and 0.35. The chest pain she said last a couple hours yesterday. She has had chest pain before, but not in a long time. She had a nuclear stress test on 05/07/2017, showing an old low inferolateral GA. She has had no further chest pain since yesterday. Blood pressure has come up and she has been restarted on midodrine. PAST MEDICAL HISTORY: Includes end-stage renal disease; type 2 diabetes with gastroparesis; legal blindness; retinopathy; hypertension in the past, but currently more problems with hypotension on midodrine; past depression; a mention of COPD, I do not know if this is accurate. Her chart incorrectly list smoking and she has never smoked before. She has been on warfarin. I am not sure of the reasons why she is on warfarin. Her INR is not elevated. History of glaucoma; history of gout; history of a cecal ulcer 11/10/2017 when she had iron deficiency anemia evaluation; obesity; mention of asthma; question sleep apnea, not clear; documentation of SVT 09/2013, but no EKG to see what her rate was; peripheral arterial disease status post right popliteal and right posterior tibial atherectomy 10/28/2009; previous right foot abscess 2002; history asymptomatic cholelithiasis. She had a subarachnoid hemorrhage in 04/2017 after a fall. FAMILY HISTORY: Positive for end-stage renal disease, hypertension, diabetes. SOCIAL HISTORY: Notable for not smoking. She lives with her boyfriend. PHYSICAL EXAMINATION: GENERAL: Reveals an obese, pleasant, -[place] female. She appears to respond appropriately, but has a very altered speech pattern. She does not appear to be confused. She is oriented. HEENT: Unremarkable. NECK: No JVD. No bruits. CHEST: Clear to auscultation. CARDIOVASCULAR: S1, S2, regular rate and rhythm, 1/6 systolic murmur. ABDOMEN: Obese, soft, nontender. EXTREMITIES: Reveal intact radial, femoral, and pedal pulses. NEUROLOGIC: Other than the altered speech pattern, I do not detect an altered mental status. She has an MRI pending. DIAGNOSTIC EVALUATION: Troponin went from 0.04 to 0.16 to 0.35. EKGs demonstrate sinus rhythm, slight nonspecific T-wave abnormality in I and aVL. Chest x-ray is negative. CT of the head shows scattered lacunar infarcts. Carotid Doppler show moderate plaquing. Hematocrit was 32. HDL 34, LDL 109. IMPRESSION: Laboratory evidence fairly convincing for a non-ST segment elevation myocardial infarction. It seems likely this was precipitated by hypotension, but cannot exclude the opposite possibility. Her blood pressure is stabilized. She has been restarted on midodrine. She is not currently receiving a beta glenna. Her INR is not elevated despite a history of being on warfarin. RECOMMENDATIONS: I had a long discussion with the patient about medical management, doing a nuclear stress test or cardiac catheterization. I think with the known vascular disease history and the rise in troponin that a cardiac catheterization makes more sense. Concerned about the altered mental status, which does not appear to be an acute CVA and currently she is alert and oriented. An MRI is pending. We will see if there is any evidence for an acute cerebral event, in which case I would want to hold off on the catheterization. If that is negative, my preference would be to do a cardiac catheterization tomorrow to define her anatomy. At this time, I am not going to add beta glenna therapy because of the previous hypotension. I would rather wait and see what her heart catheterization shows first. Informed consent has been obtained. MD FREDDY Santos/glen , 09:03 AM , 09:13 AM
--- NOTE | 2018-07-09 10:23 | P.PN ---
Subjective Interval history: Follow up for altered mental status, chest pain, ESRD. Patient is doing well. Resting in bed. No CP, SOB, fever, chills. Physical Exam Vital signs: Vital Signs 07/08/18 12:07 07/08/18 12:12 07/08/18 13:45 Temperature 97.8 F Pulse Rate 90 135 H 92 H Respiratory Rate 20 22 18 Blood Pressure 89/56 L 79/50 L 148/77 H Pulse Oximetry 94 L 95 100 07/08/18 17:02 07/08/18 20:00 07/08/18 20:10 Temperature 99.0 F 98.9 F Pulse Rate 84 77 Respiratory Rate 20 20 21 Blood Pressure 185/89 H 157/67 H Pulse Oximetry 100 100 07/08/18 23:36 07/09/18 00:22 07/09/18 01:15 Temperature 98.5 F 97.6 F Pulse Rate 133 H 119 H Respiratory Rate 20 18 Blood Pressure 113/66 102/67 Pulse Oximetry 94 L 96 96 07/09/18 03:00 07/09/18 04:00 07/09/18 05:34 Temperature 98.2 F Pulse Rate 73 85 72 Respiratory Rate 20 Blood Pressure 138/82 Pulse Oximetry 98 07/09/18 06:00 07/09/18 08:18 Temperature Pulse Rate 72 Respiratory Rate Blood Pressure Pulse Oximetry 96 Intake & Output 07/08/18 07/09/18 07/09/18 18:59 06:59 18:59 Intake Total 500 / 500 275 / 275 Balance 500 / 500 275 / 275 Weight 90.718 kg 90.71 kg Intake: IV 500 / 500 NS Inj 500 ML @ Wide Open IV. 500 / 500 SIG BOLUS HAI Rx#:[id number] Oral 200 / 200 Oral Supplement 75 / 75 Other: Date of Last Bowel Movement 07/08/18 Weight On Admission 90.71 kg Narrative: GENERAL: Alert, NAD. SKIN: Warm and dry. HEAD: Normocephalic. EYES: No scleral icterus. No injection or drainage. NECK: Supple, trachea midline. No JVD or lymphadenopathy. CARDIOVASCULAR: Regular rate and rhythm without murmurs, gallops, or rubs. RESPIRATORY: Breath sounds equal bilaterally. No accessory muscle use. GASTROINTESTINAL: Abdomen soft, non-tender, nondistended. MUSCULOSKELETAL: No cyanosis, or edema. BACK: Nontender without obvious deformity. No CVA tenderness. Results - Labs CBC & Chem 7: 07/09/18 05:20 07/09/18 05:20 Laboratory Results - last 24 hr 07/08/18 07/08/18 07/08/18 12:23 12:23 12:23 WBC 7.4 RBC 3.37 L Hgb 10.9 L Hct 32.4 L MCV 96.1 MCH 32.4 MCHC 33.7 RDW 18.1 H Plt Count 230 MPV 9.3 Neut % (Auto) 70.2 H Lymph % (Auto) 17.4 Morton % (Auto) 9.0 H Eos % (Auto) 2.8 Baso % (Auto) 0.6 Neut # (Auto) 5.2 Lymph # (Auto) 1.3 Morton # (Auto) 0.7 Eos # (Auto) 0.2 Baso # (Auto) 0.0 WBC Differential . Differential Comment Auto diff final PT 11.6 INR 1.1 APTT 27.7 Sodium 139 Potassium 4.3 Chloride 97 L Carbon Dioxide 31.6 Anion Gap 10 BUN 24 H Creatinine 5.04 H Estimated GFR 11 L POC Glucose Random Glucose 115 H Calcium 8.1 L Phosphorus Magnesium Total Bilirubin 0.6 AST 16 ALT 11 Alkaline Phosphatase 105 Total Creatine Kinase Troponin I Less than 0.02 L Total Protein 8.7 H Albumin 3.7 Triglycerides Cholesterol LDL Cholesterol, Calc HDL Cholesterol Cholesterol/HDL Ratio TSH Free T4 07/08/18 07/08/18 07/08/18 12:23 16:31 17:11 WBC RBC Hgb Hct MCV MCH MCHC RDW Plt Count MPV Neut % (Auto) Lymph % (Auto) Morton % (Auto) Eos % (Auto) Baso % (Auto) Neut # (Auto) Lymph # (Auto) Morton # (Auto) Eos # (Auto) Baso # (Auto) WBC Differential Differential Comment PT INR APTT Sodium Potassium Chloride Carbon Dioxide Anion Gap BUN Creatinine Estimated GFR POC Glucose 92 Random Glucose Calcium Phosphorus Magnesium Total Bilirubin AST ALT Alkaline Phosphatase Total Creatine Kinase 79 123 Troponin I 0.16 H D Total Protein Albumin Triglycerides Cholesterol LDL Cholesterol, Calc HDL Cholesterol Cholesterol/HDL Ratio TSH Free T4 07/08/18 07/08/18 07/08/18 18:44 22:03 22:13 WBC RBC Hgb Hct MCV MCH MCHC RDW Plt Count MPV Neut % (Auto) Lymph % (Auto) Morton % (Auto) Eos % (Auto) Baso % (Auto) Neut # (Auto) Lymph # (Auto) Morton # (Auto) Eos # (Auto) Baso # (Auto) WBC Differential Differential Comment PT INR APTT Sodium Potassium Chloride Carbon Dioxide Anion Gap BUN Creatinine Estimated GFR POC Glucose 83 167 H Random Glucose Calcium Phosphorus Magnesium Total Bilirubin AST ALT Alkaline Phosphatase Total Creatine Kinase 75 Troponin I 0.35 H D Total Protein Albumin Triglycerides Cholesterol LDL Cholesterol, Calc HDL Cholesterol Cholesterol/HDL Ratio TSH Free T4 07/09/18 07/09/18 07/09/18 00:12 03:38 05:20 WBC RBC Hgb Hct MCV MCH MCHC RDW Plt Count MPV Neut % (Auto) Lymph % (Auto) Morton % (Auto) Eos % (Auto) Baso % (Auto) Neut # (Auto) Lymph # (Auto) Morton # (Auto) Eos # (Auto) Baso # (Auto) WBC Differential Differential Comment PT 11.3 INR 1.1 APTT 27.7 Sodium 139 Potassium 5.1 D Chloride 98 Carbon Dioxide 29.7 Anion Gap 11 BUN 39 H Creatinine 6.76 H Estimated GFR 8 L POC Glucose 133 H Random Glucose 132 H Calcium 8.4 L Phosphorus 5.3 H Magnesium 2.1 Total Bilirubin 0.5 AST 12 L ALT 10 Alkaline Phosphatase 99 Total Creatine Kinase Troponin I Total Protein 8.3 H Albumin 3.5 Triglycerides 184 H Cholesterol 180 LDL Cholesterol, Calc 109 H HDL Cholesterol 34.0 L Cholesterol/HDL Ratio 5.29 TSH 1.190 Free T4 0.93 07/09/18 07/09/18 07/09/18 05:20 05:20 07:06 WBC 7.0 RBC 3.25 L Hgb 10.2 L Hct 32.0 L MCV 98.6 MCH 31.5 MCHC 31.9 L RDW 18.3 H Plt Count 215 MPV 9.4 Neut % (Auto) 62.9 Lymph % (Auto) 25.4 Morton % (Auto) 8.0 Eos % (Auto) 2.9 Baso % (Auto) 0.8 Neut # (Auto) 4.4 Lymph # (Auto) 1.8 Morton # (Auto) 0.6 Eos # (Auto) 0.2 Baso # (Auto) 0.1 WBC Differential . Differential Comment Auto diff final PT 11.3 INR 1.1 APTT 35.0 H D Sodium Potassium Chloride Carbon Dioxide Anion Gap BUN Creatinine Estimated GFR POC Glucose 113 H Random Glucose Calcium Phosphorus Magnesium Total Bilirubin AST ALT Alkaline Phosphatase Total Creatine Kinase Troponin I Total Protein Albumin Triglycerides Cholesterol LDL Cholesterol, Calc HDL Cholesterol Cholesterol/HDL Ratio TSH Free T4 - Imaging Impressions Carotid Doppler Study 07/08/18 00:00 CONCLUSION: No hemodynamically significant stenosis in either carotid artery. Chest X-Ray 07/08/18 12:11 CONCLUSION: Negative examination. Head CT 07/08/18 12:11 CONCLUSION: 1. No acute infarct, acute hemorrhage, midline shift or extra-axial fluid collections. 2. Mild periventricular and subcortical white matter small vessel ischemic changes bilaterally. 3. Scattered old tiny lacunar infarcts within the bilateral basal ganglia. 4. Renal osteodystrophy. . Assessment and Plan - Plan Patient is a 57-year-old -[place] female who presented to the emergency department from home via EMS for evaluation of altered mental status and chest pain. Altered mental status with some slurred speech Possible TIA - CT head negative for any acute findings. - MRI studies did not show any acute findings. - Mental status improved. NSTEMI - Patient had chest pain and troponins are elevated from 0.02 on admission to 0.35 - Discussed with Dr. Augustine who plans to cardiac cath on 07/10/2018. - Continue Aspirin, Lipitor. Currently on Labetalol. - Continue Heparin drip. ESRD - Will consult Nephrology to resume dialysis. Hypertension - Labetalol, Furosemide. Full code. Heparin drip.
[2018-07-09 15:37] LABS: Hemoglobin A1c 5.4 % (4.3-6.0)
--- NOTE | 2018-07-09 17:20 | MR ---
EXAM DATE: 07/09/2018 5:13 PM EDT AGE/SEX: 57 years / Female INDICATIONS: CVA. Altered mental status. CLINICAL DATA: This is the patient's subsequent encounter. Patient reports that signs and symptoms h ave been present for 1 day and indicates a pain score of 0/10. MEDICAL/SURGICAL HISTORY: Diabetes. Hypertension. Appendectomy. section. Umbilical hernia repair. COMPARISON: [facility] – [place], MR HEAD W/O CONTRAST, 07/09/2018. . TECHNIQUE: 3D [id number]-juuytl MRA was performed. Source images, multiplanar STS MIP, and 3D volum e MIP reconstructions were reviewed. FINDINGS: There is excellent visualization of the major intracranial arteries out to the second-order branch ve ssels. There is no evidence for aneurysm, vessel truncation or stenosis, and no evidence for vascula r malformation. Patent communicating artery on the left side posteriorly. Absent A1 segment on the right. No evidence of aneurysm or stenosis CONCLUSION: 1. Mild vascular variability with an absent A1 segment on the right and a patent posterior communica ting artery on the left. Electronically signed by: Chauncey Roman MD 07/09/2018 5:19 PM EDT
--- NOTE | 2018-07-09 17:22 | MR ---
EXAM DATE: 07/09/2018 5:15 PM EDT AGE/SEX: 57 years / Female INDICATIONS: CVA. Altered mental status. CLINICAL DATA: This is the patient's initial encounter. Patient reports that signs and symptoms have been present for 1 day and indicates a pain score of 0/10. MEDICAL/SURGICAL HISTORY: Hypertension. Gastroesophageal reflux disease. Appendectomy. Migel an section. Hernia repair. [place] [facility] [place]. . TECHNIQUE: Multiplanar, multisequence examination of the brain was performed without contrast. FINDINGS: Cerebrum: Small area of abnormal signal in the left occipital lobe I believe is an old stroke. The ve ntricles are normal for age. No evidence of midline shift, mass lesion, hemorrhage or acute infarcti on. No extraaxial fluid collections are seen. The pituitary gland and suprasellar cistern are julia l in configuration. White Matter: No significant signal abnormalities are seen in the white matter. Posterior Fossa: The cerebellum and brainstem are intact. The 4th ventricle is midline. The cerebel lopontine angle is unremarkable. The cerebellar tonsils are normal in position. Diffusion Imaging: No focal areas of restricted diffusion are seen. No evidence of acute infarction . Extracranial: The visualized portions of the orbits and paranasal sinuses are unremarkable. CONCLUSION: 1. Suspected old left occipital stroke. No evidence of an acute stroke, edema, mass or mass effect. Electronically signed by: Chauncey Roman MD 07/09/2018 5:20 PM EDT
[2018-07-09] MEDS: Heparin Drip 25,000 UNIT/250 ML BAG IV.CONT PRN (19:59)
--- NOTE | 2018-07-09 20:08 | ECG ---
Date Performed: 07/08/2018 Time Performed: 12:31:49 PTAGE: 57 years EKG: SINUS TACHYCARDIA NONSPECIFIC ST & T-WAVE ABNORMALITY Compared to previous tracing, patient is no longer sinus ABNORMAL RHYTHM ECG PREVIOUS TRACING : 05/19/2018 09.25 DOCTOR: Ronny Augustine Interpretating Date/Time 07/09/2018 20:07:39
--- NOTE | 2018-07-09 20:16 | ECG ---
Date Performed: 07/08/2018 Time Performed: 13:42:21 PTAGE: 57 years EKG: Sinus rhythm POSSIBLE LEFT ATRIAL ENLARGEMENT BORDERLINE LEFT AXIS DEVIATION NONSPECIFIC T-WAVE ABNORMALITY Daniel red to previous tracing, SVT is no longer present from prior tracing BORDERLINE ECG PREVIOUS TRACING : 07/08/2018 12.31 DOCTOR: Ronny Augustine Interpretating Date/Time 07/09/2018 20:14:42
--- NOTE | 2018-07-09 20:16 | ECG ---
Date Performed: 07/08/2018 Time Performed: 17:13:14 PTAGE: 57 years EKG: Sinus rhythm POSSIBLE LEFT ATRIAL ENLARGEMENT BORDERLINE LEFT AXIS DEVIATION NONSPECIFIC T-WAVE ABNORMALITY Since the previous tracing, no significant change noted BORDERLINE ECG PREVIOUS TRACING : 05/19/2018 09.25 DOCTOR: Ronny Augustien Interpretating Date/Time 07/09/2018 20:14:55
--- NOTE | 2018-07-09 20:17 | ECG ---
Date Performed: 07/08/2018 Time Performed: 22:13:24 PTAGE: 57 years EKG: SUPRAVENTRICULAR TACHYCARDIA SUSPECT INCORRECT LIMB LEAD PLACEMENT, CHANGE IN RHYTHM NOTED FROM PRIOR ABNORMAL ECG PREVIOUS TRACING : 07/08/2018 17.13 DOCTOR: Ronny Augustine Interpretating Date/Time 07/09/2018 20:15:57
[2018-07-10 03:58] LABS: Hematocrit 31.2 % (35.0-46.0); Mean Corpuscular Hemoglobin 31.5 pg (27.0-34.0); Mean Corpuscular Volume 98.5 fL (80.0-100.0); Mean Platelet Volume 9.5 fL (7.0-11.0); Platelet Count 196 th/mm3 (150-450); Red Blood Count 3.17 mil/mm3 (4.00-5.30); Red Cell Distribution Width 17.9 % (11.6-17.2); White Blood Count 6.8 th/mm3 (4.0-11.0)
[2018-07-10 04:11] LABS: Activated Partial Thrombo Time 33.4 sec (24.3-30.1); INR 1.1 Ratio; Prothrombin Time 10.9 sec (9.8-11.6)
[2018-07-10] MEDS: Insulin NovoLOG Aspart Correctional Sugar Inj SQ SCH ×6 (04:44→21:30)
[2018-07-10] MEDS ORDERED: Heparin/NS PF Inj 1,000 ML ONE (07:19)
[2018-07-10] MEDS ORDERED: fentaNYL Citrate Inj 100 MCG/2 ML Ampul ONE (07:33)
--- NOTE | 2018-07-10 08:13 | CATHPROC ---
[employer] HIS Report Study Information Study Number Admission Scheduled Start Study Start [id number] Jul 09 2018 12:01AM 07/10/2018 Jul 10 2018 7:02AM [place] [facility] Cardiac Catheterization Admit Source Facility Department Emergency department [facility] - Rental Coordinator Physician and Clinical Staff Initial Ronny Ochoa Marine Rigger Scott Rodrigues,GALI Marine Rigger Denice Meyers,RN Recorder Pham Kelly,RT(R) (BS) Scrub Debbie Branham RCIS TECHDarinel Procedures Performed Procedure Location (Site) Vessel Name Coronary Angiograms RCA Right Coronary Equipment Time Film Washer Description Size Mfg Part Number Used/Scraped TRANSDUCER, TRUWENMA [id number] 07:03 GALVAN KHAN * Used W/STOCKCOCK *[id number] INTRODUCER SET, 07:46 [employer] FR 5 [id number] *[id number] Used MICROPUNCTURE STIFF [id number] *[id number] 534-617T *[id number] 07:59 DAIG/[employer]. [employer] ANGIOSEAL, FR6 VIP FR 6 Used *[id number] 07:03 Symplified BLANKET,WARM AIR CCL * Used *[id number] 07:03 Symplified PACK, CCL CUSTOM * Used *[id number] 07:03 en-Gauge PACER PEN, SKIN DUAL W/ RULER * Used *[id number] 07:[address] SHEATH, FR6.5 PRELUDE 11CM FR 6.5 038ACT Used *[id number] 07:[address] WIRE, 3MMJ .035 180CM 180CM Used *[id number] 07:03 NAMIC MANIFOLD, 4 PORT * Used *[id number] 07:03 NYCOMED OMNIPAQUE, 350 MG, 150ML 150ML [id number] Used Equipment Model, Serial, Lot Number and Expiration Data Description Model Number Serial Number Lot Number Expiration Date ANGIOSEAL, FR6 VIP [id number] 02-16-2019 INTRODUCER SET, [id number] 06-05-2021 MICROPUNCTURE STIFF History: Current Medications Medication Dosage/Unit Route Frequency Last Date/Time Taken Statins (any) Beta Josue ASA History: Allergies Allergy Reaction linezolid VOMITING Percocet VOMITING Zocor VOMITING Zosyn VOMITING oxycodone VOMITING acetaminophen VOMITING simvastatin VOMITING tazobactam VOMITING piperacillin VOMITING History: Risk Factors Family History of Hypertension Dyslipidemia Previous IN Previous Heart Failure Premature CAD Yes Yes No Yes No Prior Valve Prior PCI Prior CABG Surgery No No No Cerebrovascular Peripheral Artery Chronic Lung On Dialysis Diabetes Diabetes Therapy Disease Disease Disease Yes Yes No Yes Yes Insulin History: Stress Tests Stress or Imaging Studies Performed No History: Other Current Smoker No Labs Hgb (g/dl) Hct (%) WBC (l/cumm) Platelets (thousands) 11.60-17.00 35.00-51.00 4.00-11.00 150.00-450.00 10.0 31.2 6.8 196 Glucose (mg/dl) BUN (mg/dl) Creatinine (mg/dl) BUN:Creatinine (1:x) 74.00-106.00 7.00-18.00 0.50-1.30 10.00-20.00 127 39 6.7 5.8 Na (meq/l) K (meq/l) 136.00-145.00 3.50-5.10 139 5.1 INR (PTT:PT) 0.90-1.10 1.1 Troponin I (ng/ml) CPK (u/l) 0.02-0.05 26.00-308.00 0.35 75 Medication Medication Total Dose (Bolus/Oral) Medication Total Dosage/Unit 1% XYLOCAINE 20 mL VERSED 1 mg Medications (Bolus/Oral) Medication Time Given Dosage/Unit Administered By Reason 1% XYLOCAINE 07/10/2018 7:45:22 AM 20 mL Ronny Augustine 20 mL 1% XYLOCAINE given in lab by Ronny Augustine in Left Groin via Subcutaneous. Ordered by Ernie Augustine. VERSED 07/10/2018 7:45:25 AM 1 mg Scott Rodrigues 1 mg VERSED given in lab by Scott Rodrigues, RN via Peripheral IV. Ordered by Ronny Augustine. Medication (Drip) Medication Time Given Dosage/Unit Concentration/Unit Diluent (ml) Solutio n IV Solutions 07/10/2018 7:13:29 AM 0 mL (IV) 500 NaCl .9 IV Solutions given in lab by Scott Rodrigues, RN in Right Antecubital via Peripheral IV. Pump/Drip Cal w = 20 ml/hr using NaCl .9. Ordered by Ronny Augustine. Chronological Log Time Study Chronological Log 7::18 Patient arrived via Bed. 7:: Patient Name, D.O.B, / Armband Verified By R.N. 7:: Consent signed by the physician and the patient and verified by the Rental Coordinator staff. 7:13:20 Pre-op and post- op instructions given; patient acknowledges understanding of instructions . 7:13:24 Presedation assessment performed by Rental Coordinator RN. 7::25 Patient has been NPO for More than 6Hrs. 7:13: Skin Breakdown blister area in right groin 7:: Patient Warmer Placed on the Table. 7:13: Beatriz Prominences Protected 7:: A # 20 IV was noted in the Antecubital (right). Grade = 0 IV Solutions given in lab by Scott Rodrigues, RN in Right Antecubital via Peripheral IV. Pump/Dri p Flow = 20 ml/hr using 7:: NaCl .9. Ordered by Ronny Augustine. 7:13:30 History and physical on the chart or being dictated. Vitals capture started with the following parameters, Patient=Adult, Interval=5 min, Initial Pre lqpic=417 mmHg, 7:18:08 Deflation Rate=5 mmHg, Cuff placed on Left Arm 7:18:40 HR=78 bpm, JUKH=984/101 mmhg, SpO2=97.0 %, Resp=10 B/min, Pain=0, Joan=10, Green=2 7:23:46 HR=78 bpm, BQHA=309/98 mmhg, SpO2=93.0 %, Resp=18 B/min, Pain=0, Joan=10, Green=2 7:24:58 Reference ECG taken 7:28:47 HR=78 bpm, DTCO=354/94 mmhg, SpO2=97.0 %, Resp=20 B/min, Pain=0, Joan=10, Green=2 7:32:28 Left groin prepped with 2% chlorhexidine, and draped after a 3 min. waiting time. 7:33:52 HR=78 bpm, GSVL=858/101 mmhg, SpO2=96 %, Resp=15 B/min, Pain=0, Joan=10, Green=2 7:34:24 Pressure channel 1 zeroed. 7:38:51 HR=78 bpm, BVBV=986/106 mmhg, SpO2=98.0 %, Resp=19 B/min, Pain=0, Joan=10, Green=2 Time Out. Correct patient, correct procedure, correct physician, labs, allergies, and equipment verified with labor mediator 7:43:10 team present. Fire risk assesment completed (see hard stop sheet for coding). Time Out Concu rred by MD and individual staff in procedure. 7:43:15 Case Start 7:43:54 HR=77 bpm, KTRT=156/89 mmhg, SpO2=99.0 %, Resp=21 B/min, Pain=0, Joan=10, Green=2 7:45:22 20 mL 1% XYLOCAINE given in lab by Ronny Augustine in Left Groin via Subcutaneous. Ordered by Ronny Augustine. 7:45:25 1 mg VERSED given in lab by Scott Rodrigues RN via Peripheral IV. Ordered by Ronny Augustine. 7:47:21 Access site was Left Femoral Artery. A INTRODUCER SET, MICROPUNCTURE STIFF FR 5 was advanced into the Fem Art (left) using the Percut aneous 7:48:22 technique. A SHEATH, FR6.5 PRELUDE 11CM FR 6.5 was exchanged in the Fem Art (left). This was necessary in o rder to 7:48:47 accomodate a larger catheter. 7:48:55 HR=76 bpm, SZZZ=703/93 mmhg, SpO2=99.0 %, Resp=25 B/min, Pain=0, Joan=10, Green=2 7:53:52 HR=77 bpm, SSZA=405/105 mmhg, SpO2=98.0 %, Resp=19 B/min, Pain=0, Joan=10, Green=2 A JL 4.5 INFINITI CATHETER FR 6 was advanced over a wire. OMNIPAQUE, 350 MG, 150ML 150ML was use d for 7:54:01 injections. Recorded Pressure: Ao, HR=77, Condition=Condition 1 7:54:03 (Aorta) Ao 166/72/111 7:55:27 Catheter was removed A 3DRC INFINITI CATHETER FR 6 was advanced over a wire. OMNIPAQUE, 350 MG, 150ML 150ML was used for 7:55:29 injections. 7:57:10 The RCA was injected and visualized at various angles. OMNIPAQUE, 350 MG, 150ML 150ML used. 7:57:33 Catheter was removed 7:58:47 An injection in the Fem Art (left) was made through the SHEATH, FR6.5 PRELUDE 11CM FR 6.5. 7:58:53 HR=77 bpm, PREL=242/91 mmhg, SpO2=98.0 %, Resp=25 B/min, Pain=0, Joan=10, Green=2 7:59:20 Left groin cleaned with chloraprep. 8:00:01 ANGIOSEAL, FR6 VIP FR 6 placement in the Fem Art (left) 8:00:59 Case End (Physician broke scrub) 8:02:58 Catheter(s) removed without difficulty 8:03:04 Sterile dressing applied to site 8:03:07 No case complications noted. 8:03:17 Bedside Report will be given. 8:03:52 HR=76 bpm, BDVQ=824/99 mmhg, SpO2=99.0 %, Resp=16 B/min, Pain=0, Joan=10, Green=2 8:08:58 Patient moved to [facility] End Study - Contrast Media Used In Study Contrast Total Opened (mL) Total Used (mL) Total Wasted (mL) Omnipaque 45 45 0 End Study - Maximum Contrast Load Max Contrast Load (mL) 70.3 End Study - Radiation Exposure Fluoro Time (minutes) 1.1 End Study - Patient Disposition Complications Transferred To Interventional Outcome No Telemetry Bed No attempt made
--- NOTE | 2018-07-10 09:11 | MA ---
cc: Ronny Augustine MD DATE: 07/10/2018 PROCEDURES PERFORMED: Coronary angiography, left femoral angiography with Angio-Seal placement. BRIEF HISTORY: Mariza Morales is a 57-year-old dialysis patient with previous peripheral arterial disease, who came in with an episode of chest pain and hypotension. She did rule in for a non-STEMI, based on a rise and fall of her troponin level. She had no further chest pain. She has had some intermittent SVT captured on telemetry with rates about 134. She has a past history of SVT as well. To sort out the elevated troponin and chest pain, informed consent was obtained for cardiac catheterization. Her LV function was normal on her echo. DESCRIPTION OF PROCEDURE: The patient was brought to the cardiac catheterization lab in a fasting state. I chose the left groin, based on the appearance of the right groin suggesting maybe a small boil. Left groin had a good pulse. She received 1 mg of Versed for additional sedation. Using 1% lidocaine for local anesthesia and a micropuncture set, the left common femoral artery was accessed and a 6-[place]at[place] sheath placed. Coronary angiography was then performed using a left 4.5 Hung for the left coronary artery, and a 3 DRC for the right coronary artery. Angiography was then obtained of the femoral artery via the sheath, followed by uncomplicated Angio-Seal placement. There were no complications. TOTAL CONTRAST LOAD: 45 mL. FINDINGS: 1. Aortic pressure is 166/72. 2. Coronary angiography: The coronary circulation was codominant. All 3 coronary arteries have only very trivial degree of irregularities, and otherwise appear normal. There is a very tiny first diagonal branch, which is about 50% ostial and proximal disease, but other than that, there is no occlusive lesion seen. CONCLUSION: Minor nonocclusive coronary artery disease. RECOMMENDATIONS: Will probably refer as an outpatient to Dr. Moralez for the intermittent slow SVT. We will back down the dose of her ProAmatine in view of the elevated systolic blood pressure. Ronny Augustine MD VEW/ , 08:13 AM , 08:19 AM
[2018-07-10] MEDS: Calcium Acetate 667 MG Capsule PO SCH ×3 (09:26→17:56)
[2018-07-10] MEDS: Brimonidine 0.2% Opth Drops 5 ML Bottle EACH EYE SCH ×2 (09:26→21:29)
[2018-07-10] MEDS: Timolol 0.5% Drops 5 ML Bottle EACH EYE SCH ×2 (09:26→21:29)
[2018-07-10] MEDS: Aspirin 325 MG Tablet PO SCH (09:26)
[2018-07-10] MEDS: Erythromycin Ethylsuccinate Susp 200 MG/5 ML 100 ML Bottle PO SCH (09:27)
[2018-07-10] MEDS: Senna/Docusate Sodium 8.6/50 MG Tablet PO SCH (09:27)
[2018-07-10] MEDS: Vitamin B Complex/Vit C/Folic Tablet PO SCH (09:27)
[2018-07-10] MEDS: Famotidine 20 MG Tablet PO SCH ×2 (09:27→21:25)
[2018-07-10] MEDS: Furosemide 80 MG Tablet PO SCH (09:27)
[2018-07-10] MEDS: Budesonide-Formoterol 160/4.5 MCG 6 GM Inhaler INH SCH ×2 (09:28→21:27)
[2018-07-10] MEDS: Allopurinol 100 MG Tablet PO SCH (09:29)
[2018-07-10] MEDS: Labetalol 100 MG Tablet PO SCH ×2 (09:31→21:18)
[2018-07-10] MEDS ORDERED: Acetaminophen 325 MG Tablet PO PRN (15:43)
[2018-07-10] MEDS ORDERED: Gelatin 12 MM/7 MM Topical Foam TOPICAL PRN (15:43)
[2018-07-10] MEDS ORDERED: Heparin 10,000 UNITS/10 ML Vial (for IV use) OTHER PRN ×2 (15:43)
[2018-07-10] MEDS ORDERED: Sod Chloride 0.9% Inj 1,000 ML OTHER PRN ×2 (15:43)
[2018-07-10] MEDS ORDERED: Albumin Human 25% Inj 100 ML IV.SIG PRN (15:43)
[2018-07-10] MEDS ORDERED: Sod Chloride 0.9% Inj 1,000 ML IV.CONT PRN (15:43)
--- NOTE | 2018-07-10 15:43 | P.CONNP ---
History of Present Illness Service: Nephrology Reason for Consult: ESRD Primary Care Provider: UNKNOWN Family Provider: John Genao Chief Complaint: CHEST PAIN AND ALTERED MENTAL STATUS History of Present Illness: This is a 57 year old lady admitted on the with chest pain and altered mental status. Patient also apparently had hemoptysis on the morning of admission. She was seen by cardiology, today she underwent cardiac catheterization. Continued medical management was recommended. Possible discharge today. Review of Systems Comments: patient is blind. Ears, Nose, Mouth, and Throat: Denies dizziness Cardiovascular: Reports chest pain Gastrointestinal: Denies abdominal pain, Denies incontinent of stools, Denies loose stools, Denies nausea Neurologic: Reports loss of vision, Denies headache(s), Denies numbness PMFSH - History History 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 - Medical History Medical History: Medical History (Last Reviewed 07/09/18 @ 12:58 by Suresh Coto) COPD (chronic obstructive pulmonary disease) Chronic anticoagulation Depression with anxiety Diabetes mellitus Gastroparesis Glaucoma Gout Hyperlipidemia Obesity Peripheral arterial disease Dialysis patient ESRD (end stage renal disease) on dialysis Hypertension Type 2 diabetes mellitus - Family History Family History: Family History (Last Updated 07/08/18 @ 18:29 by Corey Leyva, ) Other End stage renal disease Family history of diabetes mellitus Family history of hypertension - Tobacco History Second Hand Smoke Exposure: No Tobacco Use In Past 30 Days: No Smoking Status: Never smoker Tobacco Type: Cigarettes - Alcohol History How Often Do You Have a Drink Containing Alcohol: Never - Substance Use History Substance History: No History of Abuse - Travel History History of Recent Travel: No Recent Travel in the [place] Within the Last 8 Weeks: No Recent Travel Out of the Country Within the Last 8 Weeks: No - Immunization History Tetanus Immunization: Unable to Assess Hx Influenza Vaccine This Season: Unable to Assess Medications and Allergies Active Medications: Active Medications Al Hydroxide/Mg Hydroxide (Milk Of Magnlove Liq) 30 ml PO Q12H PRN PRN Reason: Mild Constipation Allopurinol (Zyloprim) 100 mg PO DAILY [facility] Last Admin: 07/10/18 09:29 Dose: 100 mg Aspirin (Aspirin) 325 mg PO DAILY [facility] Last Admin: 07/10/18 09:26 Dose: 325 mg Atorvastatin Calcium (Lipitor) 10 mg PO DAILY [facility] Last Admin: 07/10/18 09:27 Dose: 10 mg Bisacodyl (Dulcolax Supp) 10 mg RECTAL DAILY PRN PRN Reason: SEVERE CONSITIPATION Brimonidine Tartrate (Alphagan 0.2% Opth Drops) 1 drops EACH EYE Q12HR [facility] Last Admin: 07/10/18 09:26 Dose: 1 drops Budesonide/Formoterol Fumarate (Symbicort 160/4.5 Mcg Inh) 1 puff INH BID [facility] Last Admin: 07/10/18 09:28 Dose: 1 puff Calcium Acetate (Phoslo) 667 mg PO TIDAC [facility] Last Admin: 07/10/18 13:09 Dose: Not Given Dextrose (D50w Vial) 50 ml IV.PUSH UNSCH PRN PRN Reason: PER HYPOGLYCEMIA PROTOCOL 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 [facility] Stop: 07/13/18 09:14 Diphenhydramine HCl (Benadryl) 25 mg PO FIXED ROUTE [employer]PERATOR [facility] Stop: 07/13/18 09:14 Duloxetine HCl (Cymbalta) 20 mg PO DAILY [facility] Last Admin: 07/10/18 09:27 Dose: 20 mg Erythromycin Ethylsuccinate (Ees 200 Mg/5 Ml Liq) 200 mg PO DAILY [facility] Last Admin: 07/10/18 09:27 Dose: 200 mg Famotidine (Pepcid) 10 mg PO BID [facility] Last Admin: 07/10/18 09:27 Dose: 10 mg Furosemide (Lasix) 80 mg PO DAILY [facility] Last Admin: 07/10/18 09:27 Dose: 80 mg Glucagon (Glucagon Inj) 1 mg OTHER PRN PRN PRN Reason: for Hypoglycemia Protocol Sodium Chloride (Ns Inj) 500 mls @ 0 mls/hr IV.SIG BOLUS [facility] Last Infusion: 07/08/18 13:36 Dose: Infused Insulin Aspart (Novolog Insulin Correctional Sugar Inj) 0 unit SQ ACHS AND 3AM HAI; Protocol Last Admin: 07/10/18 13:08 Dose: Not Given Labetalol HCl (Trandate) 50 mg PO BID [facility] Last Admin: 07/10/18 09:31 Dose: 50 mg Lactulose (Lactulose Liq) 30 ml PO DAILY PRN PRN Reason: SEVERE CONSITIPATION Midodrine (Proamatine) 5 mg PO TID [facility] Miscellaneous (Pill Splitter) 1 each OTHER UNSCH PRN PRN Reason: PILL SPIT Nitroglycerin (Nitro-Bid 2% Oint) 0.5 inch TOPICAL Q6HR [facility] Last Admin: 07/10/18 13:08 Dose: Not Given Ondansetron HCl (Zofran Inj) 4 mg IV.PUSH Q6H PRN PRN Reason: NAUSEA OR VOMITING Promethazine HCl (Phenergan) 25 mg PO BID PRN PRN Reason: Nausea Senna/Docusate Sodium (Maya-Colace) 1 tab PO DAILY [facility] Last Admin: 07/10/18 09:27 Dose: 1 tab Sennosides (Senokot) 17.2 mg PO Q12H PRN PRN Reason: Moderate Constipation Sodium Chloride (Ns Flush) 2 ml IV.FLUSH PRN PRN PRN Reason: FLUSH AFTER USING IV ACCESS Timolol Maleate (Timoptic 0.5% Drops) 1 drops EACH EYE BID@8894,5863 [facility] Last Admin: 07/10/18 09:26 Dose: 1 drops Vitamin B Complex/Vit C/Folic Acid (Nephrocaps) 1 tab PO DAILY [facility] Last Admin: 07/10/18 09:27 Dose: 1 tab Zolpidem Tartrate (Ambien) 5 mg PO HS PRN PRN Reason: INSOMNIA Allergies Allergy/AdvReac Type Severity Reaction Status Date / Time acetaminophen Allergy Severe VOMITING Verified 05/19/18 09:05 linezolid Allergy Severe VOMITING Verified 05/19/18 09:05 piperacillin Allergy Severe VOMITING Verified 05/19/18 09:05 simvastatin Allergy Severe VOMITING Verified 05/19/18 09:05 tazobactam Allergy Severe VOMITING Verified 05/19/18 09:05 oxycodone AdvReac Severe VOMITING Verified 05/19/18 09:05 Home Medications Medication Instructions Recorded Confirmed Type B complex with C#20-folic acid 1 cap PO DAILY 05/19/18 07/08/18 History [Renal Caps] allopurinol [Zyloprim] 100 mg PO DAILY 05/19/18 07/08/18 History atorvastatin [Lipitor] 10 mg PO DAILY 05/19/18 07/08/18 History bisacodyl [Dulcolax (bisacodyl)] 5 mg PO BID 05/19/18 07/08/18 History brimonidine-timolol 1 drp EACH EYE Q12H 05/19/18 07/08/18 History calcium acetate 667 mg PO TID 05/19/18 07/08/18 History duloxetine [Cymbalta] 20 mg PO DAILY 05/19/18 07/08/18 History erythromycin ethylsuccinate 200 mg PO DAILY 05/19/18 07/08/18 History [EryPed 200] famotidine [Pepcid] 20 mg PO BID 05/19/18 07/08/18 History fluticasone-salmeterol [Advair 1 inh INHALATION BID 05/19/18 07/08/18 History Diskus] furosemide [Lasix] 80 mg PO DAILY 05/19/18 07/08/18 History insulin detemir U-100 [Levemir 10 unit SUB-Q HS 05/19/18 07/08/18 History U-100 Insulin] labetalol 50 mg PO BID 05/19/18 07/08/18 History midodrine 10 mg PO TID 05/19/18 07/08/18 History promethazine 25 mg PO BID PRN 05/19/18 07/08/18 History sennosides-docusate sodium [Senna 1 tab PO DAILY 05/19/18 07/08/18 History Plus] warfarin [Coumadin] 5 mg PO DAILY 05/19/18 07/08/18 History Exam Vital signs: Vital Signs 07/09/18 16:00 07/09/18 17:00 07/09/18 18:00 Temperature 97.5 F L Pulse Rate 73 72 75 Respiratory Rate 18 Blood Pressure 135/72 Pulse Oximetry 97 07/09/18 19:00 07/09/18 20:00 07/09/18 20:19 Temperature 97.6 F Pulse Rate 74 74 74 Respiratory Rate 18 Blood Pressure 163/85 H Pulse Oximetry 95 07/09/18 21:00 07/09/18 22:00 07/09/18 23:00 Temperature Pulse Rate 75 76 76 Respiratory Rate Blood Pressure Pulse Oximetry 07/10/18 00:00 07/10/18 01:00 07/10/18 02:00 Temperature 98 F Pulse Rate 76 80 76 Respiratory Rate 18 Blood Pressure 136/65 Pulse Oximetry 96 07/10/18 03:00 07/10/18 04:00 07/10/18 05:00 Temperature 98 F Pulse Rate 75 75 76 Respiratory Rate 18 Blood Pressure 161/85 H Pulse Oximetry 96 07/10/18 06:00 07/10/18 07:00 07/10/18 08:00 Temperature 97.9 F Pulse Rate 77 76 76 Respiratory Rate 20 Blood Pressure 154/78 H Pulse Oximetry 95 07/10/18 09:00 07/10/18 10:00 07/10/18 11:00 Temperature Pulse Rate 75 75 78 Respiratory Rate Blood Pressure Pulse Oximetry 07/10/18 12:00 07/10/18 13:00 07/10/18 14:00 Temperature 98 F Pulse Rate 76 77 77 Respiratory Rate 18 Blood Pressure 142/72 H Pulse Oximetry 95 Intake & Output 07/09/18 07/10/18 07/10/18 18:59 06:59 18:59 Intake Total 450 / 450 490 / 490 Output Total 0 / 0 Balance 450 / 450 490 / 490 Weight 94.2 kg Intake: IV 250 / 250 Heparin/D5W 25,000 U/250 mL 25, 250 / 250 000 unit In 250 ml @ 1,000 UNITS/HR 10 mls/hr IV.CONT TITRATE PRN Rx#:[id number] Oral 450 / 450 240 / 240 Output: Urine 0 / 0 Other: Date of Last Bowel Movement 07/09/18 07/09/18 # Bowel Movements 2 - Constitutional no acute distress - Routine HEENT Exam Head: Present: normocephalic, atraumatic Comments: patient is legally blind. - Routine Neck Exam Present: supple, full ROM. Absent: JVD, carotid bruit, lymphadenopathy, thyromegaly - Routine Respiratory Exam Present: CTA bilaterally - Routine Cardiovascular Exam Present: RRR, S1, S2 - Routine Abdominal Exam Present: soft, normoactive bowel sounds - Routine Skin Exam Present: intact - Routine Neurological Exam Present: alert, oriented X3 Results - Lab Results 07/10/18 03:44 07/09/18 05:20 Most recent lab results Calcium 8.4 mg/dL (8.5-10.1) L 07/09/18 05:20 Phosphorus 5.3 mg/dL (2.5-4.9) H 07/09/18 05:20 Magnesium 2.1 mg/dL (1.5-2.5) 07/09/18 05:20 Assessment and Plan - Assessment (1) ESRD (end stage renal disease) on dialysis Code(s): N18.6 - End stage renal disease; Z99.2 - Dependence on renal dialysis Status: Acute Plan: patient was seen during dialysis. Dialysis as above. She can be discharged from renal standpoint. Tolerating it well. Outpatient dialysis arrangements have been made. (2) Chest pain Code(s): R07.9 - Chest pain, unspecified Status: Acute Plan: s/p cath, no significant CAD, continued medical management recommended. (3) Hypertension Code(s): I10 - Essential (primary) hypertension Status: Acute Plan: There probably is no need for Midodrine. - Attending Attestation Thanks for the consult.
--- NOTE | 2018-07-10 23:29 | P.PN ---
Subjective Interval history: Follow up for altered mental status, chest pain, ESRD. Patient is currently doing well. No CP, SOB, fever, chills. Patient was seen around noon. I discussed with [facility] [email or web address] who will provide patient's regular dialysis. We planned to discharge patient home after dialysis. However, she was somewhat hypotensive and tachycardic after dialysis. Hopefully discharge home in the AM on 07/11/2018. Physical Exam Vital signs: Vital Signs 07/10/18 00:00 07/10/18 01:00 07/10/18 02:00 Temperature 98 F Pulse Rate 76 80 76 Respiratory Rate 18 Blood Pressure 136/65 Pulse Oximetry 96 07/10/18 03:00 07/10/18 04:00 07/10/18 05:00 Temperature 98 F Pulse Rate 75 75 76 Respiratory Rate 18 Blood Pressure 161/85 H Pulse Oximetry 96 07/10/18 06:00 07/10/18 07:00 07/10/18 08:00 Temperature 97.9 F Pulse Rate 77 76 76 Respiratory Rate 20 Blood Pressure 154/78 H Pulse Oximetry 95 07/10/18 09:00 07/10/18 10:00 07/10/18 11:00 Temperature Pulse Rate 75 75 78 Respiratory Rate Blood Pressure Pulse Oximetry 07/10/18 12:00 07/10/18 13:00 07/10/18 14:00 Temperature 98 F Pulse Rate 76 77 77 Respiratory Rate 18 Blood Pressure 142/72 H Pulse Oximetry 95 07/10/18 15:00 07/10/18 16:00 07/10/18 17:00 Temperature Pulse Rate 76 76 77 Respiratory Rate Blood Pressure Pulse Oximetry 07/10/18 17:59 07/10/18 21:00 Temperature Pulse Rate 80 Respiratory Rate Blood Pressure Pulse Oximetry 96 Intake & Output 07/10/18 07/10/18 07/11/18 06:59 18:59 06:59 Intake Total 490 / 490 480 / 480 Output Total 0 / 0 Balance 490 / 490 480 / 480 Weight 94.2 kg Intake: IV 250 / 250 Heparin/D5W 25,000 U/250 mL 25, 250 / 250 000 unit In 250 ml @ 1,000 UNITS/HR 10 mls/hr IV.CONT TITRATE PRN Rx#:[id number] Oral 240 / 240 480 / 480 Output: Urine 0 / 0 Other: Date of Last Bowel Movement 07/09/18 Narrative: GENERAL: Alert, NAD. SKIN: Warm and dry. HEAD: Normocephalic. EYES: No scleral icterus. No injection or drainage. NECK: Supple, trachea midline. No JVD or lymphadenopathy. CARDIOVASCULAR: Regular rate and rhythm without murmurs, gallops, or rubs. RESPIRATORY: Breath sounds equal bilaterally. No accessory muscle use. GASTROINTESTINAL: Abdomen soft, non-tender, nondistended. MUSCULOSKELETAL: No cyanosis, or edema. BACK: Nontender without obvious deformity. No CVA tenderness. Results - Labs CBC & Chem 7: 07/10/18 03:44 07/09/18 05:20 Laboratory Results - last 24 hr 07/10/18 07/10/18 07/10/18 03:44 03:44 04:42 WBC 6.8 RBC 3.17 L Hgb 10.0 L Hct 31.2 L MCV 98.5 MCH 31.5 MCHC 32.0 RDW 17.9 H Plt Count 196 MPV 9.5 PT 10.9 INR 1.1 APTT 33.4 H POC Glucose 127 H 07/10/18 07/10/18 07/10/18 08:23 10:23 11:27 WBC RBC Hgb Hct MCV MCH MCHC RDW Plt Count MPV PT INR APTT 28.7 POC Glucose 121 H 130 H 07/10/18 07/10/18 17:01 21:20 WBC RBC Hgb Hct MCV MCH MCHC RDW Plt Count MPV PT INR APTT POC Glucose 191 H 326 H Microbiology 07/08/18 20:45 Blood - Peripheral Aerobic Blood Culture - Preliminary No growth in 2 days 07/08/18 20:45 Blood - Peripheral Anaerobic Blood Culture - Preliminary No growth in 2 days 07/08/18 20:39 Blood - Peripheral Aerobic Blood Culture - Preliminary No growth in 2 days 07/08/18 20:39 Blood - Peripheral Anaerobic Blood Culture - Preliminary No growth in 2 days Assessment and Plan - Plan Patient is a 57-year-old -French female who presented to the emergency department from home via EMS for evaluation of altered mental status and chest pain. Altered mental status with some slurred speech Possible TIA - CT head negative for any acute findings. - MRI studies did not show any acute findings. - Mental status improved. NSTEMI - Patient had chest pain and troponins are elevated from 0.02 on admission to 0.35 - Discussed with Dr. Augustine. Patient underwent cardiac cath on 07/10/2018. No intervention - Continue Aspirin, Lipitor. Currently on Labetalol. - Will reduce midodrine to 5mg TID. ESRD - Nephrology to resume dialysis. Hypertension - Labetalol, Furosemide. Full code. Discharge after dialysis was planned. Discharge was not done due to tachycardia and hypotension after dialysis. IF patient remains hemodynamically stable, she can be discharged on 07/11/2018.
[2018-07-11] MEDS: Insulin NovoLOG Aspart Correctional Sugar Inj SQ SCH ×5 (03:40→21:03)
[2018-07-11 05:17] LABS: INR 1.1 Ratio; Prothrombin Time 11.1 sec (9.8-11.6)
[2018-07-11 05:26] LABS: Baso # (Auto) 0.1 th/mm3 (0.0-0.2); Baso % (Auto) 0.9 % (0.0-2.0); Eos # (Auto) 0.2 th/mm3 (0.0-0.4); Eos % (Auto) 3.2 % (0.0-4.0); Hematocrit 32.1 % (35.0-46.0); Hemoglobin 10.3 gm/dL (11.6-15.3); Lymph # (Auto) 1.3 th/mm3 (1.0-4.8); Lymph % (Auto) 19.9 % (9.0-44.0); Mean Corpuscular HGB Conc 32.2 % (32.0-36.0); Mean Corpuscular Hemoglobin 31.5 pg (27.0-34.0); Mean Corpuscular Volume 98.1 fL (80.0-100.0); Mean Platelet Volume 9.8 fL (7.0-11.0); Mono # (Auto) 0.6 th/mm3 (0.0-0.9); Mono % (Auto) 9.2 % (0.0-8.0); Neut # (Auto) 4.3 th/mm3 (1.8-7.7); Neut % (Auto) 66.8 % (16.0-70.0); Platelet Count 216 th/mm3 (150-450); Red Blood Count 3.27 mil/mm3 (4.00-5.30); Red Cell Distribution Width 18.4 % (11.6-17.2); White Blood Count 6.4 th/mm3 (4.0-11.0)
[2018-07-11 05:38] LABS: Albumin 3.1 g/dL (3.4-5.0); Anion Gap 11 meq/L (5-15); Aspartate Aminotransferase 9 U/L (15-37); Blood Urea Nitrogen 30 mg/dL (7-18); Calcium 8.1 mg/dL (8.5-10.1); Carbon Dioxide 31.2 meq/L (21.0-32.0); Chloride 100 meq/L (98-107); Glomerular Filtration Rate 8 mL/min (>89); Glucose,Random 138 mg/dL (74-106); Potassium 5.3 meq/L (3.5-5.1); Sodium 142 meq/L (136-145)
[2018-07-11 05:46] LABS: Alanine Aminotransferase 11 U/L (10-53); Alkaline Phosphatase 96 U/L (45-117); Total Protein 7.8 g/dL (6.4-8.2)
[2018-07-11] MEDS: Calcium Acetate 667 MG Capsule PO SCH ×3 (09:40→17:51)
[2018-07-11] MEDS: Vitamin B Complex/Vit C/Folic Tablet PO SCH (09:41)
[2018-07-11] MEDS: Aspirin 325 MG Tablet PO SCH (09:41)
[2018-07-11] MEDS: Furosemide 80 MG Tablet PO SCH (09:41)
[2018-07-11] MEDS: Labetalol 100 MG Tablet PO SCH (09:41)
[2018-07-11] MEDS: Famotidine 20 MG Tablet PO SCH ×2 (09:41→21:00)
[2018-07-11] MEDS: Senna/Docusate Sodium 8.6/50 MG Tablet PO SCH (09:41)
[2018-07-11] MEDS: Budesonide-Formoterol 160/4.5 MCG 6 GM Inhaler INH SCH ×2 (09:43→21:00)
[2018-07-11] MEDS: Erythromycin Ethylsuccinate Susp 200 MG/5 ML 100 ML Bottle PO SCH (09:43)
[2018-07-11] MEDS: Sodium Polystyrene Sulfonate/Sorbitol Liq 15 GM/60 ML UDC PO ONE ×2 (09:48→11:03)
[2018-07-11] MEDS: Allopurinol 100 MG Tablet PO SCH (09:48)
--- NOTE | 2018-07-11 11:33 | P.PNNP ---
Subjective Interval history: patient is tachycardic. CTA is planned. There is no need for HD after the procedure. Physical Exam Vital signs: Vital Signs 07/10/18 12:00 07/10/18 13:00 07/10/18 14:00 Temperature 98 F Pulse Rate 76 77 77 Respiratory Rate 18 Blood Pressure 142/72 H Pulse Oximetry 95 07/10/18 15:00 07/10/18 16:00 07/10/18 17:00 Temperature Pulse Rate 76 76 77 Respiratory Rate Blood Pressure Pulse Oximetry 07/10/18 17:59 07/10/18 19:00 07/10/18 20:00 Temperature 98.3 F Pulse Rate 80 133 H 133 H Respiratory Rate 20 Blood Pressure 117/66 Pulse Oximetry 95 07/10/18 21:00 07/10/18 22:00 07/10/18 23:00 Temperature Pulse Rate 130 H 131 H 130 H Respiratory Rate Blood Pressure Pulse Oximetry 96 07/11/18 00:00 07/11/18 01:00 07/11/18 02:00 Temperature 98 F Pulse Rate 130 H 130 H 129 H Respiratory Rate 18 Blood Pressure 108/59 L Pulse Oximetry 95 07/11/18 03:00 07/11/18 04:00 07/11/18 05:00 Temperature 97.8 F Pulse Rate 128 H 131 H 128 H Respiratory Rate 18 Blood Pressure 109/63 Pulse Oximetry 96 07/11/18 06:00 07/11/18 07:00 07/11/18 07:30 Temperature 97.6 F Pulse Rate 127 H 128 H 122 H Respiratory Rate 18 Blood Pressure 126/77 Pulse Oximetry 96 07/11/18 08:00 07/11/18 09:30 Temperature Pulse Rate Respiratory Rate Blood Pressure Pulse Oximetry 96 96 Intake & Output 07/10/18 07/11/18 07/11/18 18:59 06:59 18:59 Intake Total 730 / 730 480 / 480 Output Total 0 / 0 Balance 730 / 730 480 / 480 Weight 93.1 kg Intake: IV 250 / 250 Oral 480 / 480 480 / 480 Output: Urine 0 / 0 Other: Date of Last Bowel Movement 07/09/18 # Bowel Movements 0 Narrative: GENERAL: Alert, NAD. SKIN: Warm and dry. HEAD: Normocephalic. EYES: patient is legally blind. NECK: Supple, trachea midline. No JVD or lymphadenopathy. CARDIOVASCULAR: sinus tachycardia. RESPIRATORY: Breath sounds equal bilaterally. No accessory muscle use. GASTROINTESTINAL: Abdomen soft, non-tender, nondistended. MUSCULOSKELETAL: No cyanosis, or edema. BACK: Nontender without obvious deformity. No CVA tenderness. Assessment and Plan - Assessment (1) ESRD (end stage renal disease) on dialysis Code(s): N18.6 - End stage renal disease; Z99.2 - Dependence on renal dialysis Status: Acute Plan: Dialysis MWF. Mild hyperkalemia is noted, monitor. Potentially can be discharged after CTA today (if negative) (2) Chest pain Code(s): R07.9 - Chest pain, unspecified Status: Acute Plan: s/p cath, no significant CAD, continued medical management recommended. CTA planned today (3) Hypertension Code(s): I10 - Essential (primary) hypertension Status: Acute Plan: There probably is no need for Midodrine.
--- NOTE | 2018-07-11 12:28 | CT ---
EXAM DATE: 07/11/2018 12:22 PM EDT AGE/SEX: 57 years / Female INDICATIONS: Short of breath. CLINICAL DATA: This is the patient's initial encounter. Patient reports that signs and symptoms have been present for 1 day and indicates a pain score of 0/10. MEDICAL/SURGICAL HISTORY: Diabetes. Chronic obstructive pulmonary disease. Hypertension. Dialysi s. None. RADIATION DOSE: 10.64 CTDI (mGy) COMPARISON: [facility], CHEST 1V SINGLE AP, 07/08/2018. . TECHNIQUE: Volumetric scanning was performed using a multi-row detector CT scanner during bolus infu srinivasan of 50 ml Visipaque 320 (iodixanol) nonionic water-soluble contrast as a single exam dose. The d graham was post processed with a variety of visualization algorithms including full volume maximum inten sity projection and sliding thin slab reformation. Using automated exposure control and adjustment o f the mA and/or kV according to patient size, radiation dose was kept as low as reasonably achievable to obtain optimal diagnostic quality images. DICOM format image data is available electronically fo r review and comparison. FINDINGS: There is a small pericardial effusion, coronary artery calcification. Atherosclerotic calcification o f the aorta is noted. There is a small cyst suspected in the periphery of the right lobe of the liver . There is cardiomegaly. There is no evidence for pulmonary embolus. There are scattered mild groundg lass infiltrates. Osseous structures are intact. CONCLUSION: 1. Cardiomegaly, atherosclerosis with prominent coronary artery calcification. 2. No evidence for pulmonary embolism. 3. Mild groundglass infiltrates are noted bilaterally. Electronically signed by: Sony Jarvis MD 07/11/2018 12:27 PM EDT
[2018-07-11] MEDS: Brimonidine 0.2% Opth Drops 5 ML Bottle EACH EYE SCH ×2 (15:09→21:02)
[2018-07-11] MEDS: Timolol 0.5% Drops 5 ML Bottle EACH EYE SCH ×2 (15:10→21:02)
[2018-07-11] MEDS ORDERED: Adenosine Inj 6 MG/2 ML Syringe IV.PUSH ONE ×2 (15:47→15:51)
--- NOTE | 2018-07-11 16:22 | P.PN ---
Subjective Interval history: Nursing denies any deterioration since last night except for the fact that the patient is still tachycardic. Patient herself is asymptomatic. Does not know her medications well. Physical Exam Vital signs: Vital Signs 07/10/18 17:00 07/10/18 17:59 07/10/18 19:00 Temperature Pulse Rate 77 80 133 H Respiratory Rate Blood Pressure Pulse Oximetry 07/10/18 20:00 07/10/18 21:00 07/10/18 22:00 Temperature 98.3 F Pulse Rate 133 H 130 H 131 H Respiratory Rate 20 Blood Pressure 117/66 Pulse Oximetry 95 96 07/10/18 23:00 07/11/18 00:00 07/11/18 01:00 Temperature 98 F Pulse Rate 130 H 130 H 130 H Respiratory Rate 18 Blood Pressure 108/59 L Pulse Oximetry 95 07/11/18 02:00 07/11/18 03:00 07/11/18 04:00 Temperature 97.8 F Pulse Rate 129 H 128 H 131 H Respiratory Rate 18 Blood Pressure 109/63 Pulse Oximetry 96 07/11/18 05:00 07/11/18 06:00 07/11/18 07:00 Temperature Pulse Rate 128 H 127 H 128 H Respiratory Rate Blood Pressure Pulse Oximetry 07/11/18 07:30 07/11/18 08:00 07/11/18 09:00 Temperature 97.6 F Pulse Rate 122 H 128 H 126 H Respiratory Rate 18 Blood Pressure 126/77 Pulse Oximetry 96 96 07/11/18 09:30 07/11/18 10:00 07/11/18 11:00 Temperature Pulse Rate 128 H 123 H Respiratory Rate Blood Pressure Pulse Oximetry 96 07/11/18 12:00 07/11/18 13:00 07/11/18 14:00 Temperature 98.0 F Pulse Rate 126 H 126 H 124 H Respiratory Rate 24 Blood Pressure 107/62 Pulse Oximetry 96 07/11/18 15:06 07/11/18 16:00 07/11/18 16:08 Temperature 97.8 F Pulse Rate 124 H 76 76 Respiratory Rate 20 18 Blood Pressure 106/67 125/65 Pulse Oximetry 96 94 L Intake & Output 07/10/18 07/11/18 07/11/18 18:59 06:59 18:59 Intake Total 730 / 730 480 / 480 Output Total 0 / 0 Balance 730 / 730 480 / 480 Weight 93.1 kg Intake: IV 250 / 250 Oral 480 / 480 480 / 480 Output: Urine 0 / 0 Other: Date of Last Bowel Movement 07/09/18 # Bowel Movements 0 Narrative: Tachycardic, regular rhythm Clear lungs bilaterally, unlabored breathing Alert and awake Results - Labs CBC & Chem 7: 07/11/18 04:27 07/12/18 05:38 Laboratory Results - last 24 hr 07/10/18 07/10/18 07/11/18 17:01 21:20 01:37 WBC RBC Hgb Hct MCV MCH MCHC RDW Plt Count MPV Neut % (Auto) Lymph % (Auto) [place] % (Auto) Eos % (Auto) Baso % (Auto) Neut # (Auto) Lymph # (Auto) [place] # (Auto) Eos # (Auto) Baso # (Auto) WBC Differential Differential Comment PT INR Sodium Potassium Chloride Carbon Dioxide Anion Gap BUN Creatinine Estimated GFR POC Glucose 191 H 326 H 163 H Random Glucose Calcium Magnesium Total Bilirubin AST ALT Alkaline Phosphatase Total Protein Albumin 07/11/18 07/11/18 07/11/18 04:27 04:27 04:27 WBC 6.4 RBC 3.27 L Hgb 10.3 L Hct 32.1 L MCV 98.1 MCH 31.5 MCHC 32.2 RDW 18.4 H Plt Count 216 MPV 9.8 Neut % (Auto) 66.8 Lymph % (Auto) 19.9 [place] % (Auto) 9.2 H Eos % (Auto) 3.2 Baso % (Auto) 0.9 Neut # (Auto) 4.3 Lymph # (Auto) 1.3 [place] # (Auto) 0.6 Eos # (Auto) 0.2 Baso # (Auto) 0.1 WBC Differential . Differential Comment Auto diff final PT 11.1 INR 1.1 Sodium 142 Potassium 5.3 H Chloride 100 Carbon Dioxide 31.2 Anion Gap 11 BUN 30 H Creatinine 6.55 H Estimated GFR 8 L POC Glucose Random Glucose 138 H Calcium 8.1 L Magnesium Total Bilirubin 0.4 AST 9 L ALT 11 Alkaline Phosphatase 96 Total Protein 7.8 Albumin 3.1 L 07/11/18 07/11/18 07/11/18 04:27 07:43 11:43 WBC RBC Hgb Hct MCV MCH MCHC RDW Plt Count MPV Neut % (Auto) Lymph % (Auto) [place] % (Auto) Eos % (Auto) Baso % (Auto) Neut # (Auto) Lymph # (Auto) [place] # (Auto) Eos # (Auto) Baso # (Auto) WBC Differential Differential Comment PT INR Sodium Potassium Chloride Carbon Dioxide Anion Gap BUN Creatinine Estimated GFR POC Glucose 118 H 144 H Random Glucose Calcium Magnesium 2.2 Total Bilirubin AST ALT Alkaline Phosphatase Total Protein Albumin Microbiology 07/08/18 20:45 Blood - Peripheral Aerobic Blood Culture - Preliminary No growth in 3 days 07/08/18 20:45 Blood - Peripheral Anaerobic Blood Culture - Preliminary No growth in 3 days 07/08/18 20:39 Blood - Peripheral Aerobic Blood Culture - Preliminary No growth in 3 days 07/08/18 20:39 Blood - Peripheral Anaerobic Blood Culture - Preliminary No growth in 3 days - Imaging Impressions Chest CTA 07/11/18 00:00 CONCLUSION: 1. Cardiomegaly, atherosclerosis with prominent coronary artery calcification. 2. No evidence for pulmonary embolism. 3. Mild groundglass infiltrates are noted bilaterally. Assessment and Plan - Plan Patient is a 57-year-old -Tongan female who presented to the emergency department from home via EMS for evaluation of altered mental status and chest pain. Altered mental status with some slurred speech -Resolved NSTEMI - Patient had chest pain and troponins are elevated from 0.02 on admission to 0.35 - Discussed with Dr. Augustine. Patient underwent cardiac cath on 07/10/2018. No intervention - Continue Aspirin, Lipitor. Currently on Labetalol. -Midodrine Tachyarrhythmia CTA is negative. Discussed with cardiology, suspecting AVT, cardiology concludes AVNRT, now back in sinus rhythm status post adenosine, will monitor overnight ESRD - Nephrology following, dialysis Friday Hyperkalemia, likely secondary to end-stage renal disease, recheck in a.m. Hypertension -Furosemide, labetalol changed to metoprolol per cardiology Full code. Discharge Planning: Possible discharge on 07/12 if vital signs are stable and cleared with cardiology
[2018-07-11] MEDS ORDERED: Metoprolol Tartrate 25 MG Tablet PO ONE (17:30)
--- NOTE | 2018-07-11 17:46 | P.PNCA ---
Subjective Interval history: Asked to see due to tachycardia Appears that last night she went into SVT with heart rates in the 120-130s and has been there since Patient overall asymptomatic Medications and Allergies Active Medications: Active Medications Acetaminophen (Tylenol) 650 mg PO UNSCH PRN PRN Reason: SEE LABEL COMMENTS Al Hydroxide/Mg Hydroxide (Milk Of Magnesia Liq) 30 ml PO Q12H PRN PRN Reason: Mild Constipation Allopurinol (Zyloprim) 100 mg PO DAILY [facility] Last Admin: 07/11/18 09:48 Dose: 100 mg Aspirin (Aspirin) 325 mg PO DAILY [facility] Last Admin: 07/11/18 09:41 Dose: 325 mg Atorvastatin Calcium (Lipitor) 10 mg PO DAILY [facility] Last Admin: 07/11/18 09:41 Dose: 10 mg Bisacodyl (Dulcolax Supp) 10 mg RECTAL DAILY PRN PRN Reason: SEVERE CONSITIPATION Brimonidine Tartrate (Alphagan 0.2% Opth Drops) 1 drops EACH EYE Q12HR [facility] Last Admin: 07/11/18 15:09 Dose: 1 drops Budesonide/Formoterol Fumarate (Symbicort 160/4.5 Mcg Inh) 1 puff INH BID [facility] Last Admin: 07/11/18 09:43 Dose: 1 puff Calcium Acetate (Phoslo) 667 mg PO TIDAC [facility] Last Admin: 07/11/18 13:08 Dose: 667 mg Clonidine HCl (Catapres) 0.1 mg PO UNSCH PRN PRN Reason: SEE LABEL COMMENTS Dextrose (D50w Vial) 50 ml IV.PUSH UNSCH PRN PRN Reason: PER HYPOGLYCEMIA PROTOCOL Diazepam (Valium) 5 mg PO TRAUMA NURSE [facility] Stop: 07/13/18 09:14 Diphenhydramine HCl (Benadryl) 25 mg PO TRAUMA NURSE [facility] Stop: 07/13/18 09:14 Diphenhydramine HCl (Benadryl) 25 mg PO UNSCH PRN PRN Reason: SEE LABEL COMMENTS Duloxetine HCl (Cymbalta) 20 mg PO DAILY [facility] Last Admin: 07/11/18 09:41 Dose: 20 mg Epoetin Francisco (Epogen Inj) 5,000 unit IV.PUSH UNSCH PRN PRN Reason: SEE LABEL COMMENTS Erythromycin Ethylsuccinate (Ees 200 Mg/5 Ml Liq) 200 mg PO DAILY [facility] Last Admin: 07/11/18 09:43 Dose: 200 mg Famotidine (Pepcid) 10 mg PO BID [facility] Last Admin: 07/11/18 09:41 Dose: 10 mg Furosemide (Lasix) 80 mg PO DAILY [facility] Last Admin: 07/11/18 09:41 Dose: 80 mg Gelatin (Gelfoam 12 Mm/7 Mm Topical) 1 foam TOPICAL UNSCH PRN PRN Reason: help stop bleeding from site Gentamicin Sulfate (Gentamicin Inj) 20 mg OTHER WITH DIALYSIS PRN PRN Reason: Dwell Gentamycin Lock Glucagon (Glucagon Inj) 1 mg OTHER PRN PRN PRN Reason: for Hypoglycemia Protocol Heparin Sodium (Porcine) (Heparin Inj) 1,000 units OTHER WITH DIALYSIS PRN PRN Reason: Dwell Heparin to Fill Catheter Heparin Sodium (Porcine) (Heparin Inj) 8,000 units OTHER WITH DIALYSIS PRN PRN Reason: for machine prime Albumin Human (Flexbumin 25% Inj) 100 mls @ 60 mls/hr IV.SIG WITH DIALYSIS PRN PRN Reason: hypotension / volume replace Sodium Chloride (Ns Inj) 1,000 mls @ 0 mls/hr OTHER .Q0M PRN PRN Reason: for prime and rinse back Sodium Chloride (Ns Inj) 1,000 mls @ 0 mls/hr IV.CONT .Q0M PRN PRN Reason: hypotension / volume replace Sodium Chloride (Ns Inj) 1,000 mls @ 200 mls/hr OTHER .Q5H PRN PRN Reason: for dialyzer flush PRN Insulin Aspart (Novolog Insulin Correctional Sugar Inj) 0 unit SQ ACHS AND 3AM HAI; Protocol Last Admin: 07/11/18 12:00 Dose: Not Given Lactulose (Lactulose Liq) 30 ml PO DAILY PRN PRN Reason: SEVERE CONSITIPATION Mannitol (Mannitol Inj) 12.5 gm IV.PUSH UNSCH PRN PRN Reason: hypotension / volume replace Metoprolol Tartrate (Lopressor) 25 mg PO BID [facility] Miscellaneous (Pill Splitter) 1 each OTHER UNSCH PRN PRN Reason: PILL SPIT Nitroglycerin (Nitro-Bid 2% Oint) 0.5 inch TOPICAL Q6HR [facility] Last Admin: 07/11/18 11:06 Dose: Not Given Nitroglycerin (Nitrostat Sl) 0.4 mg SL Q5M PRN PRN Reason: CHEST PAIN Ondansetron HCl (Zofran Inj) 4 mg IV.PUSH Q6H PRN PRN Reason: NAUSEA OR VOMITING Ondansetron HCl (Zofran Inj) 4 mg IV.PUSH UNSCH PRN PRN Reason: NAUSEA OR VOMITING Promethazine HCl (Phenergan) 25 mg PO BID PRN PRN Reason: Nausea Senna/Docusate Sodium (Maya-Colace) 1 tab PO DAILY [facility] Last Admin: 07/11/18 09:41 Dose: 1 tab Sennosides (Senokot) 17.2 mg PO Q12H PRN PRN Reason: Moderate Constipation Sodium Chloride (Ns Flush) 2 ml IV.FLUSH PRN PRN PRN Reason: FLUSH AFTER USING IV ACCESS Sodium Chloride (Ns Flush) 5 ml IV.FLUSH UNSCH PRN PRN Reason: flush each lumen during HD Timolol Maleate (Timoptic 0.5% Drops) 1 drops EACH EYE BID@0855,2055 [facility] Last Admin: 07/11/18 15:10 Dose: 1 drops Vitamin B Complex/Vit C/Folic Acid (Nephrocaps) 1 tab PO DAILY [facility] Last Admin: 07/11/18 09:41 Dose: 1 tab Allergies Allergy/AdvReac Type Severity Reaction Status Date / Time acetaminophen Allergy Severe VOMITING Verified 05/19/18 09:05 linezolid Allergy Severe VOMITING Verified 05/19/18 09:05 piperacillin Allergy Severe VOMITING Verified 05/19/18 09:05 simvastatin Allergy Severe VOMITING Verified 05/19/18 09:05 tazobactam Allergy Severe VOMITING Verified 05/19/18 09:05 oxycodone AdvReac Severe VOMITING Verified 05/19/18 09:05 Home Medications Medication Instructions Recorded Confirmed Type B complex with C#20-folic acid 1 cap PO DAILY 05/19/18 07/08/18 History [Renal Caps] allopurinol [Zyloprim] 100 mg PO DAILY 05/19/18 07/08/18 History atorvastatin [Lipitor] 10 mg PO DAILY 05/19/18 07/08/18 History bisacodyl [Dulcolax (bisacodyl)] 5 mg PO BID 05/19/18 07/08/18 History brimonidine-timolol 1 drp EACH EYE Q12H 05/19/18 07/08/18 History calcium acetate 667 mg PO TID 05/19/18 07/08/18 History duloxetine [Cymbalta] 20 mg PO DAILY 05/19/18 07/08/18 History erythromycin ethylsuccinate 200 mg PO DAILY 05/19/18 07/08/18 History [EryPed 200] famotidine [Pepcid] 20 mg PO BID 05/19/18 07/08/18 History fluticasone-salmeterol [Advair 1 inh INHALATION BID 05/19/18 07/08/18 History Diskus] furosemide [Lasix] 80 mg PO DAILY 05/19/18 07/08/18 History insulin detemir U-100 [Levemir 10 unit SUB-Q HS 05/19/18 07/08/18 History U-100 Insulin] promethazine 25 mg PO BID PRN 05/19/18 07/08/18 History sennosides-docusate sodium [Senna 1 tab PO DAILY 05/19/18 07/08/18 History Plus] warfarin [Coumadin] 5 mg PO DAILY 05/19/18 07/08/18 History melatonin 5 mg PO HS PRN 07/10/18 07/10/18 History Physical Exam Vital signs: Vital Signs 07/10/18 17:59 07/10/18 19:00 07/10/18 20:00 Temperature 98.3 F Pulse Rate 80 133 H 133 H Respiratory Rate 20 Blood Pressure 117/66 Pulse Oximetry 95 07/10/18 21:00 07/10/18 22:00 07/10/18 23:00 Temperature Pulse Rate 130 H 131 H 130 H Respiratory Rate Blood Pressure Pulse Oximetry 96 07/11/18 00:00 07/11/18 01:00 07/11/18 02:00 Temperature 98 F Pulse Rate 130 H 130 H 129 H Respiratory Rate 18 Blood Pressure 108/59 L Pulse Oximetry 95 07/11/18 03:00 07/11/18 04:00 07/11/18 05:00 Temperature 97.8 F Pulse Rate 128 H 131 H 128 H Respiratory Rate 18 Blood Pressure 109/63 Pulse Oximetry 96 07/11/18 06:00 07/11/18 07:00 07/11/18 07:30 Temperature 97.6 F Pulse Rate 127 H 128 H 122 H Respiratory Rate 18 Blood Pressure 126/77 Pulse Oximetry 96 07/11/18 08:00 07/11/18 09:00 07/11/18 09:30 Temperature Pulse Rate 128 H 126 H Respiratory Rate Blood Pressure Pulse Oximetry 96 96 07/11/18 10:00 07/11/18 11:00 07/11/18 12:00 Temperature 98.0 F Pulse Rate 128 H 123 H 126 H Respiratory Rate 24 Blood Pressure 107/62 Pulse Oximetry 96 07/11/18 13:00 07/11/18 14:00 07/11/18 15:06 Temperature 97.8 F Pulse Rate 126 H 124 H 124 H Respiratory Rate 20 Blood Pressure 106/67 Pulse Oximetry 96 07/11/18 16:00 07/11/18 16:08 Temperature Pulse Rate 76 76 Respiratory Rate 18 Blood Pressure 125/65 Pulse Oximetry 94 L Intake & Output 07/10/18 07/11/18 07/11/18 18:59 06:59 18:59 Intake Total 730 / 730 480 / 480 Output Total 0 / 0 Balance 730 / 730 480 / 480 Weight 93.1 kg Intake: IV 250 / 250 Oral 480 / 480 480 / 480 Output: Urine 0 / 0 Other: Date of Last Bowel Movement 07/09/18 # Bowel Movements 0 Narrative: GENERAL: NAD SKIN: Warm and dry. HEAD: Atraumatic. Normocephalic. EYES: Pupils equal and round. No scleral icterus. No injection or drainage. ENT: No nasal bleeding or discharge. Mucous membranes pink and moist. NECK: Trachea midline. No JVD. CARDIOVASCULAR: Tachycardic, regular RESPIRATORY: No accessory muscle use. Clear to auscultation. Breath sounds equal bilaterally. GASTROINTESTINAL: Abdomen soft, non-tender, nondistended. Hepatic and splenic margins not palpable. MUSCULOSKELETAL: Extremities without clubbing, cyanosis, or edema. No obvious deformities. NEUROLOGICAL: Awake and alert. No obvious cranial nerve deficits. Motor grossly within normal limits. Five out of 5 muscle strength in the arms and legs. Normal speech. PSYCHIATRIC: Appropriate mood and affect; insight and judgment normal. Results 07/11/18 04:27 07/11/18 04:27 Cardiac Enzymes 07/11/18 Range/Units 04:27 AST 9 L (15-37) U/L Coagulation 07/09/18 07/10/18 07/10/18 Range/Units 20:28 03:44 10:23 PT 10.9 (9.8-11.6) sec APTT 33.2 H 33.4 H 28.7 (24.3-30.1) sec 07/11/18 Range/Units 04:27 PT 11.1 (9.8-11.6) sec APTT (24.3-30.1) sec CBC 07/10/18 07/11/18 Range/Units 03:44 04:27 WBC 6.8 6.4 (4.0-11.0) th/mm3 RBC 3.17 L 3.27 L (4.00-5.30) mil/mm3 Hgb 10.0 L 10.3 L (11.6-15.3) gm/dL Hct 31.2 L 32.1 L (35.0-46.0) % Plt Count 196 216 (150-450) th/mm3 Neut # (Auto) 4.3 (1.8-7.7) th/mm3 Lymph # (Auto) 1.3 (1.0-4.8) th/mm3 [place] # (Auto) 0.6 (0.0-0.9) th/mm3 Eos # (Auto) 0.2 (0.0-0.4) th/mm3 Baso # (Auto) 0.1 (0.0-0.2) th/mm3 Comprehensive Metabolic Panel 07/11/18 Range/Units 04:27 Sodium 142 (136-145) meq/L Potassium 5.3 H (3.5-5.1) meq/L Chloride 100 (98-107) meq/L Carbon Dioxide 31.2 (21.0-32.0) meq/L BUN 30 H (7-18) mg/dL Creatinine 6.55 H (0.50-1.00) mg/dL Calcium 8.1 L (8.5-10.1) mg/dL AST 9 L (15-37) U/L ALT 11 (10-53) U/L Alkaline Phosphatase 96 (45-117) U/L Total Protein 7.8 (6.4-8.2) g/dL Albumin 3.1 L (3.4-5.0) g/dL Intake and Output 07/11/18 07/11/18 07/11/18 06:59 14:59 22:59 Intake Total 480 / 480 Output Total 0 / 0 Balance 480 / 480 Intake: Oral 480 / 480 Output: Urine 0 / 0 Other: Date of Last Bowel Movement 07/09/18 07/09/18 # Bowel Movements 0 Weight 93.1 kg - Imaging and Cardiology Imaging: Impressions Chest CTA 07/11/18 00:00 CONCLUSION: 1. Cardiomegaly, atherosclerosis with prominent coronary artery calcification. 2. No evidence for pulmonary embolism. 3. Mild groundglass infiltrates are noted bilaterally. Assessment and Plan - Assessment (1) AVNRT (AV red re-entry tachycardia) Code(s): I47.1 - Supraventricular tachycardia Status: Acute (2) Elevated troponin Code(s): R74.8 - Abnormal levels of other serum enzymes Status: Acute (3) ESRD (end stage renal disease) on dialysis Code(s): N18.6 - End stage renal disease; Z99.2 - Dependence on renal dialysis Status: Acute (4) Hypertension Code(s): I10 - Essential (primary) hypertension Status: Acute (5) Tobacco abuse Code(s): Z72.0 - Tobacco use Status: Acute - Plan 1) Elevated troponin Most likely Type 2 due to hypotension post HD 2) Cath showing no significant CAD 3) Tachyarrhythmia/SVT EKG showing AVNRT Please see procedure note 4) ESRD on HD 5) HTN Midodrine stopped
--- NOTE | 2018-07-11 17:52 | P.PCNCA ---
- Cardiology Procedure Note Procedure: Chemical cardioversion with Adenosine Procedure Date: 07/11/18 Procedure Detail: Patient noted to be AVNRT with heart rates in the 120-130s Attempted to break with vagal maneuver unsuccessful Crash cart placed in the room. Patient "hard-wired" to telemetry in the room. Given 6mg Adenosine with immediate flushes. Back in sinus rhythm. Tolerated the procedure well with no complaints. Blood pressure more stable after in NSR. Plan: 1) Will change Labetalol to Metoprolol to try to help avoid SVT 2) Will watch overnight and if stable possible discharge tomorrow 3) If further events will need consideration of slow pathway modification by Dr. Liz
[2018-07-12] MEDS: Insulin NovoLOG Aspart Correctional Sugar Inj SQ SCH ×3 (02:23→13:12)
[2018-07-12 06:13] LABS: Prothrombin Time 10.6 sec (9.8-11.6)
[2018-07-12 06:28] LABS: Calcium 8.4 mg/dL (8.5-10.1)
[2018-07-12] MEDS ORDERED: Metoprolol Tartrate 25 MG Tablet PO SCH (09:00)
[2018-07-12] MEDS: Budesonide-Formoterol 160/4.5 MCG 6 GM Inhaler INH SCH (09:31)
[2018-07-12] MEDS: Erythromycin Ethylsuccinate Susp 200 MG/5 ML 100 ML Bottle PO SCH (09:31)
[2018-07-12] MEDS: Brimonidine 0.2% Opth Drops 5 ML Bottle EACH EYE SCH (09:32)
[2018-07-12] MEDS: Timolol 0.5% Drops 5 ML Bottle EACH EYE SCH (09:32)
[2018-07-12] MEDS: Furosemide 80 MG Tablet PO SCH (09:32)
[2018-07-12] MEDS: Vitamin B Complex/Vit C/Folic Tablet PO SCH (09:33)
[2018-07-12] MEDS: Calcium Acetate 667 MG Capsule PO SCH ×2 (09:33→13:15)
[2018-07-12] MEDS: Famotidine 20 MG Tablet PO SCH (09:33)
[2018-07-12] MEDS: Allopurinol 100 MG Tablet PO SCH (09:33)
[2018-07-12] MEDS: Senna/Docusate Sodium 8.6/50 MG Tablet PO SCH (09:34)
[2018-07-12] MEDS: Aspirin 325 MG Tablet PO SCH (09:36)
[2018-07-12] MEDS ORDERED: Sodium Polystyrene Sulfonate/Sorbitol Liq 15 GM/60 ML UDC PO ONE (10:30)
--- NOTE | 2018-07-12 10:37 | P.DCO ---
- Physical Therapy Order: Evaluate and treat - Occupational Therapy Order: Evaluate and treat - Home Health Nursing Order: Medical education, Medication education-adverse effect - Case Management Consult Yes - Certification I have seen patient Mariza Lovell on 07/12/18. My clinical findings support the need for the requested home health care services because: Limited ability to care for self I certify that my clinical findings support that this patient is homebound because: Unsafe to leave home unassisted
--- NOTE | 2018-07-12 11:09 | P.PNNP ---
Subjective Interval history: Patient had CTA which was negative for PE. She had developed SVT from which she has converted to NSR. Her serum potassium is high at 6 today, we will dialyze her today before discharge. Physical Exam Vital signs: Vital Signs 07/11/18 12:00 07/11/18 13:00 07/11/18 14:00 Temperature 98.0 F Pulse Rate 126 H 126 H 124 H Respiratory Rate 24 Blood Pressure 107/62 Pulse Oximetry 96 07/11/18 15:00 07/11/18 15:06 07/11/18 16:00 Temperature 97.8 F Pulse Rate 126 H 124 H 76 Respiratory Rate 20 Blood Pressure 106/67 Pulse Oximetry 96 07/11/18 16:08 07/11/18 17:00 07/11/18 18:00 Temperature Pulse Rate 76 74 74 Respiratory Rate 18 Blood Pressure 125/65 Pulse Oximetry 94 L 07/11/18 20:00 07/11/18 21:00 07/11/18 22:00 Temperature 98.2 F Pulse Rate 74 73 72 Respiratory Rate 20 Blood Pressure 156/80 H Pulse Oximetry 96 07/11/18 23:00 07/11/18 23:49 07/11/18 23:57 Temperature 97.8 F Pulse Rate 72 75 75 Respiratory Rate 18 Blood Pressure 143/74 H Pulse Oximetry 95 07/12/18 01:00 07/12/18 02:00 07/12/18 03:00 Temperature Pulse Rate 72 77 70 Respiratory Rate Blood Pressure Pulse Oximetry 07/12/18 04:00 07/12/18 05:00 07/12/18 06:00 Temperature 98 F Pulse Rate 73 74 76 Respiratory Rate 18 Blood Pressure 165/74 H Pulse Oximetry 96 07/12/18 07:00 07/12/18 07:45 07/12/18 09:35 Temperature 98.0 F Pulse Rate 74 75 Respiratory Rate 18 Blood Pressure 135/66 Pulse Oximetry 96 95 Intake & Output 07/11/18 07/12/18 07/12/18 18:59 06:59 18:59 Intake Total 1100 / 1100 480 / 480 Output Total 0 / 0 0 / 0 Balance 1100 / 1100 480 / 480 Weight 93 kg Intake: Oral 1100 / 1100 480 / 480 Output: Urine 0 / 0 0 / 0 Other: Date of Last Bowel Movement 07/09/18 07/09/18 07/09/18 # Bowel Movements 0 Narrative: Tachycardic, regular rhythm Clear lungs bilaterally, unlabored breathing Alert and awake Patient is legally blind. No confusion or disorientation. Has no specific complaints. Assessment and Plan - Assessment (1) ESRD (end stage renal disease) on dialysis Code(s): N18.6 - End stage renal disease; Z99.2 - Dependence on renal dialysis Status: Acute Plan: Usual Dialysis is MWF. Because of hyperkalemia, we will dialyze her today. She can be discharged after dialysis today. (2) Chest pain Code(s): R07.9 - Chest pain, unspecified Status: Acute Plan: s/p cath, no significant CAD, continued medical management recommended. CTA negative for PE. (3) Hypertension Code(s): I10 - Essential (primary) hypertension Status: Acute Plan: BP is overall stable. Continue current medications. - Attending Attestation Cleared for discharge after dialysis.
--- NOTE | 2018-07-12 11:45 | ECG ---
Date Performed: 07/11/2018 Time Performed: 10:00:10 PTAGE: 57 years EKG: Supraventricular tachycardia Left axis deviation Poor R wave progression - probable normal variant Lateral T wave changes may be due to myocardial ischemia Abnormal ECG PREVIOUS TRACING :07/08/2018 @22.13 Compared to previous tracing, no significant change Suprave ntricular tachycardia continues DOCTOR: Yolanda Romero Interpretating Date/Time 07/12/2018 11:42:56
--- NOTE | 2018-07-12 15:06 | P.DS ---
Date of admission: 07/09/18 00:01 Primary care physician: UNKNOWN Brief History from admission: Patient is a 57-year-old -[place] female who presented to the emergency department from home via EMS for evaluation of altered mental status and chest pain. Patient had just had hemodialysis this morning. And her significant other picked her up and states that she has been acting differently since that time. Patient also complained of anterior chest wall pain. Was tender to palpation and reproducible. The history is limited due to her mental status at this time. Per EMS patient speech is always garbled as they have picked her up in the past and initially patient's systolic blood pressure was in the 110s and then dropped to 76. She was moaning and mental status was not so good when seen in the emergency department. Had a history of end-stage renal disease on hemodialysis, as well as diabetes mellitus type 2 and hypertension and what sounds like medical noncompliance also has a history of gout and hyperlipidemia and depression anxiety as well as COPD diabetes chronic Coumadin use for unknown reason. Had also been on Midrin but again it did not take any of her medications prior to coming to the hospital. Chest pain was 6 out of 10 constant and achy Patient will be admitted for altered mental status and questionable TIA and chest pain rule out. DS: Diagnosis - Discharge Diagnosis (1) ESRD (end stage renal disease) on dialysis Status: Acute (2) AVNRT (AV red re-entry tachycardia) Status: Acute DS: Medications - Discharge Medications Prescriptions: aspirin [Adult Low Dose Aspirin] 81 mg PO DAILY #30 tab metoprolol tartrate 25 mg PO BID #60 tab DS: Summary Hospital Course: Patient was admitted. Underwent neurological workup which showed no acute findings of any stroke. Patient's mental status returned to baseline and her chest pain had resolved. Her encephalopathy was thus concluded to possibly be secondary to metabolic derangement from her end-stage renal disease. Patient developed SVT and found to be in AVNRT which responded to adenosine. Underwent CTA which showed no emboli. Patient has met maximal benefit from hospitalization and is clinically stable for discharge. - Time Spent with Patient Total time spent providing and/or coordinating discharge services: Less than 30 minutes - Quality: VTE Deep Vein Thrombosis/Pulmonary Embolism Present on Admission: No Exam Vital signs: Vital Signs 07/11/18 15:06 07/11/18 16:00 07/11/18 16:08 Temperature 97.8 F Pulse Rate 124 H 76 76 Respiratory Rate 20 18 Blood Pressure 106/67 125/65 Pulse Oximetry 96 94 L 07/11/18 17:00 07/11/18 18:00 07/11/18 20:00 Temperature 98.2 F Pulse Rate 74 74 74 Respiratory Rate 20 Blood Pressure 156/80 H Pulse Oximetry 96 07/11/18 21:00 07/11/18 22:00 07/11/18 23:00 Temperature Pulse Rate 73 72 72 Respiratory Rate Blood Pressure Pulse Oximetry 07/11/18 23:49 07/11/18 23:57 07/12/18 01:00 Temperature 97.8 F Pulse Rate 75 75 72 Respiratory Rate 18 Blood Pressure 143/74 H Pulse Oximetry 95 07/12/18 02:00 07/12/18 03:00 07/12/18 04:00 Temperature 98 F Pulse Rate 77 70 73 Respiratory Rate 18 Blood Pressure 165/74 H Pulse Oximetry 96 07/12/18 05:00 07/12/18 06:00 07/12/18 07:00 Temperature Pulse Rate 74 76 74 Respiratory Rate Blood Pressure Pulse Oximetry 07/12/18 07:45 07/12/18 08:00 07/12/18 09:00 Temperature 98.0 F Pulse Rate 75 74 72 Respiratory Rate 18 Blood Pressure 135/66 Pulse Oximetry 96 07/12/18 09:35 07/12/18 10:00 07/12/18 11:00 Temperature Pulse Rate 72 72 Respiratory Rate Blood Pressure Pulse Oximetry 95 07/12/18 12:00 07/12/18 13:00 Temperature 98.1 F Pulse Rate 74 73 Respiratory Rate 18 Blood Pressure 157/71 H Pulse Oximetry 99 Intake & Output 07/11/18 07/12/18 07/12/18 18:59 06:59 18:59 Intake Total 1100 / 1100 480 / 480 Output Total 0 / 0 0 / 0 0 / 0 Balance 1100 / 1100 480 / 480 0 / 0 Weight 93 kg Intake: Oral 1100 / 1100 480 / 480 Output: Urine 0 / 0 0 / 0 Hemodialysis Amount 0 / 0 Other: Date of Last Bowel Movement 07/09/18 07/09/18 07/09/18 # Bowel Movements 0 Narrative: Regular rate and rhythm of heart sounds Clear lungs bilaterally, unlabored breathing Results Procedures completed during hospitalization: Adenosine IV push cardioversion Labs on day of discharge: Labs from last 24 hours 07/12/18 07/12/18 07/12/18 14:44 11:54 07:42 PT INR Sodium Potassium Pending Chloride Carbon Dioxide Anion Gap BUN Creatinine Estimated GFR POC Glucose 153 H 110 Random Glucose Calcium 07/12/18 07/12/18 07/11/18 05:38 05:38 20:59 PT 10.6 INR 1.0 Sodium 138 Potassium 6.0 H Chloride 98 Carbon Dioxide 29.0 Anion Gap 11 BUN 47 H Creatinine 8.50 H Estimated GFR 6 L POC Glucose 224 H Random Glucose 125 H Calcium 8.4 L 07/11/18 17:12 PT INR Sodium Potassium Chloride Carbon Dioxide Anion Gap BUN Creatinine Estimated GFR POC Glucose 117 H Random Glucose Calcium Preliminary micro results at discharge 07/08/18 20:45 Aerobic Blood Culture - Preliminary Blood - Peripheral No growth in 4 days Anaerobic Blood Culture - Preliminary No growth in 4 days 07/08/18 20:39 Aerobic Blood Culture - Preliminary Blood - Peripheral No growth in 4 days Anaerobic Blood Culture - Preliminary No growth in 4 days - Impressions ITS Impressions Carotid Doppler Study 07/08/18 00:00 CONCLUSION: No hemodynamically significant stenosis in either carotid artery. Chest X-Ray 07/08/18 12:11 CONCLUSION: Negative examination. Head CT 07/08/18 12:11 CONCLUSION: 1. No acute infarct, acute hemorrhage, midline shift or extra-axial fluid collections. 2. Mild periventricular and subcortical white matter small vessel ischemic changes bilaterally. 3. Scattered old tiny lacunar infarcts within the bilateral basal ganglia. 4. Renal osteodystrophy. . Head MRI 07/09/18 00:00 CONCLUSION: 1. Suspected old left occipital stroke. No evidence of an acute stroke, edema, mass or mass effect. Head MRA 07/09/18 00:00 CONCLUSION: 1. Mild vascular variability with an absent A1 segment on the right and a patent posterior communicating artery on the left. Chest CTA 07/11/18 00:00 CONCLUSION: 1. Cardiomegaly, atherosclerosis with prominent coronary artery calcification. 2. No evidence for pulmonary embolism. 3. Mild groundglass infiltrates are noted bilaterally. Discharge Plan - Discharge Disposition Patient Disposition: 01 Discharge Home - Discharge Condition Condition: Good - Discharge Order Discharge Orders: Discharge Order (Routine); Ordered 07/12/18 Ordered By: Brendon Masoodi - Discharge Details Anticipated Discharge Date: 07/10/18 Discharge Comment: Discharge after dialysis. - Physicians Team Primary Care Provider: UNKNOWN, Attending Provider: Brendon Salas Other Providers: Sree Blanc DO ; [employer] ; Sai Suggs MD
[2018-07-12 15:14] VITALS: BP 151/77; RESP 20; TEMP 97.9; O2SAT 96
--- NOTE | 2018-07-12 15:30 | P.PNCA ---
Subjective Interval history: No events overnight Sinus rhythm Medications and Allergies Active Medications: Active Medications Acetaminophen (Tylenol) 650 mg PO UNSCH PRN PRN Reason: SEE LABEL COMMENTS Al Hydroxide/Mg Hydroxide (Milk Of Magnesia Liq) 30 ml PO Q12H PRN PRN Reason: Mild Constipation Allopurinol (Zyloprim) 100 mg PO DAILY [facility] Last Admin: 07/12/18 09:33 Dose: 100 mg Aspirin (Aspirin) 325 mg PO DAILY [facility] Last Admin: 07/12/18 09:36 Dose: 325 mg Atorvastatin Calcium (Lipitor) 10 mg PO DAILY [facility] Last Admin: 07/12/18 09:33 Dose: 10 mg Bisacodyl (Dulcolax Supp) 10 mg RECTAL DAILY PRN PRN Reason: SEVERE CONSITIPATION Brimonidine Tartrate (Alphagan 0.2% Opth Drops) 1 drops EACH EYE Q12HR [facility] Last Admin: 07/12/18 09:32 Dose: 1 drops Budesonide/Formoterol Fumarate (Symbicort 160/4.5 Mcg Inh) 1 puff INH BID [facility] Last Admin: 07/12/18 09:31 Dose: 1 puff Calcium Acetate (Phoslo) 667 mg PO TIDAC [facility] Last Admin: 07/12/18 13:15 Dose: 667 mg Clonidine HCl (Catapres) 0.1 mg PO UNSCH PRN PRN Reason: SEE LABEL COMMENTS Dextrose (D50w Vial) 50 ml IV.PUSH UNSCH PRN PRN Reason: PER HYPOGLYCEMIA PROTOCOL Diazepam (Valium) 5 mg PO [employer]LECTION TECHNICIAN [facility] Stop: 07/13/18 09:14 Diphenhydramine HCl (Benadryl) 25 mg PO [employer]LECTION TECHNICIAN [facility] Stop: 07/13/18 09:14 Diphenhydramine HCl (Benadryl) 25 mg PO UNSCH PRN PRN Reason: SEE LABEL COMMENTS Duloxetine HCl (Cymbalta) 20 mg PO DAILY [facility] Last Admin: 07/12/18 09:33 Dose: 20 mg Epoetin Francisco (Epogen Inj) 5,000 unit IV.PUSH UNSCH PRN PRN Reason: SEE LABEL COMMENTS Erythromycin Ethylsuccinate (Ees 200 Mg/5 Ml Liq) 200 mg PO DAILY [facility] Last Admin: 07/12/18 09:31 Dose: 200 mg Famotidine (Pepcid) 10 mg PO BID [facility] Last Admin: 07/12/18 09:33 Dose: 10 mg Furosemide (Lasix) 80 mg PO DAILY [facility] Last Admin: 07/12/18 09:32 Dose: 80 mg Gelatin (Gelfoam 12 Mm/7 Mm Topical) 1 foam TOPICAL UNSCH PRN PRN Reason: help stop bleeding from site Gentamicin Sulfate (Gentamicin Inj) 20 mg OTHER WITH DIALYSIS PRN PRN Reason: Dwell Gentamycin Lock Glucagon (Glucagon Inj) 1 mg OTHER PRN PRN PRN Reason: for Hypoglycemia Protocol Heparin Sodium (Porcine) (Heparin Inj) 1,000 units OTHER WITH DIALYSIS PRN PRN Reason: Dwell Heparin to Fill Catheter Heparin Sodium (Porcine) (Heparin Inj) 8,000 units OTHER WITH DIALYSIS PRN PRN Reason: for machine prime Albumin Human (Flexbumin 25% Inj) 100 mls @ 60 mls/hr IV.SIG WITH DIALYSIS PRN PRN Reason: hypotension / volume replace Sodium Chloride (Ns Inj) 1,000 mls @ 0 mls/hr OTHER .Q0M PRN PRN Reason: for prime and rinse back Sodium Chloride (Ns Inj) 1,000 mls @ 0 mls/hr IV.CONT .Q0M PRN PRN Reason: hypotension / volume replace Sodium Chloride (Ns Inj) 1,000 mls @ 200 mls/hr OTHER .Q5H PRN PRN Reason: for dialyzer flush PRN Insulin Aspart (Novolog Insulin Correctional Sugar Inj) 0 unit SQ ACHS AND 3AM AHI; Protocol Last Admin: 07/12/18 13:12 Dose: Not Given Lactulose (Lactulose Liq) 30 ml PO DAILY PRN PRN Reason: SEVERE CONSITIPATION Mannitol (Mannitol Inj) 12.5 gm IV.PUSH UNSCH PRN PRN Reason: hypotension / volume replace Metoprolol Tartrate (Lopressor) 25 mg PO BID [facility] Last Admin: 07/12/18 09:33 Dose: 25 mg Miscellaneous (Pill Splitter) 1 each OTHER UNSCH PRN PRN Reason: PILL SPIT Nitroglycerin (Nitro-Bid 2% Oint) 0.5 inch TOPICAL Q6HR [facility] Last Admin: 07/12/18 13:11 Dose: Not Given Nitroglycerin (Nitrostat Sl) 0.4 mg SL Q5M PRN PRN Reason: CHEST PAIN Ondansetron HCl (Zofran Inj) 4 mg IV.PUSH Q6H PRN PRN Reason: NAUSEA OR VOMITING Ondansetron HCl (Zofran Inj) 4 mg IV.PUSH UNSCH PRN PRN Reason: NAUSEA OR VOMITING Promethazine HCl (Phenergan) 25 mg PO BID PRN PRN Reason: Nausea Senna/Docusate Sodium (Maya-Colace) 1 tab PO DAILY [facility] Last Admin: 07/12/18 09:34 Dose: Not Given Sennosides (Senokot) 17.2 mg PO Q12H PRN PRN Reason: Moderate Constipation Sodium Chloride (Ns Flush) 2 ml IV.FLUSH PRN PRN PRN Reason: FLUSH AFTER USING IV ACCESS Sodium Chloride (Ns Flush) 5 ml IV.FLUSH UNSCH PRN PRN Reason: flush each lumen during HD Timolol Maleate (Timoptic 0.5% Drops) 1 drops EACH EYE BID@0855,2055 [facility] Last Admin: 07/12/18 09:32 Dose: 1 drops Vitamin B Complex/Vit C/Folic Acid (Nephrocaps) 1 tab PO DAILY [facility] Last Admin: 07/12/18 09:33 Dose: 1 tab Allergies Allergy/AdvReac Type Severity Reaction Status Date / Time acetaminophen Allergy Severe VOMITING Verified 05/19/18 09:05 linezolid Allergy Severe VOMITING Verified 05/19/18 09:05 piperacillin Allergy Severe VOMITING Verified 05/19/18 09:05 simvastatin Allergy Severe VOMITING Verified 05/19/18 09:05 tazobactam Allergy Severe VOMITING Verified 05/19/18 09:05 oxycodone AdvReac Severe VOMITING Verified 05/19/18 09:05 Home Medications Medication Instructions Recorded Confirmed Type B complex with C#20-folic acid 1 cap PO DAILY 05/19/18 07/08/18 History [Renal Caps] allopurinol [Zyloprim] 100 mg PO DAILY 05/19/18 07/08/18 History atorvastatin [Lipitor] 10 mg PO DAILY 05/19/18 07/08/18 History bisacodyl [Dulcolax (bisacodyl)] 5 mg PO BID 05/19/18 07/08/18 History brimonidine-timolol 1 drp EACH EYE Q12H 05/19/18 07/08/18 History calcium acetate 667 mg PO TID 05/19/18 07/08/18 History duloxetine [Cymbalta] 20 mg PO DAILY 05/19/18 07/08/18 History erythromycin ethylsuccinate 200 mg PO DAILY 05/19/18 07/08/18 History [EryPed 200] famotidine [Pepcid] 20 mg PO BID 05/19/18 07/08/18 History fluticasone-salmeterol [Advair 1 inh INHALATION BID 05/19/18 07/08/18 History Diskus] furosemide [Lasix] 80 mg PO DAILY 05/19/18 07/08/18 History insulin detemir U-100 [Levemir 10 unit SUB-Q HS 05/19/18 07/08/18 History U-100 Insulin] promethazine 25 mg PO BID PRN 05/19/18 07/08/18 History sennosides-docusate sodium [Senna 1 tab PO DAILY 05/19/18 07/08/18 History Plus] warfarin [Coumadin] 5 mg PO DAILY 05/19/18 07/08/18 History melatonin 5 mg PO HS PRN 07/10/18 07/10/18 History Physical Exam Vital signs: Vital Signs 07/11/18 16:00 07/11/18 16:08 07/11/18 17:00 Temperature Pulse Rate 76 76 74 Respiratory Rate 18 Blood Pressure 125/65 Pulse Oximetry 94 L 07/11/18 18:00 07/11/18 20:00 07/11/18 21:00 Temperature 98.2 F Pulse Rate 74 74 73 Respiratory Rate 20 Blood Pressure 156/80 H Pulse Oximetry 96 07/11/18 22:00 07/11/18 23:00 07/11/18 23:49 Temperature 97.8 F Pulse Rate 72 72 75 Respiratory Rate 18 Blood Pressure 143/74 H Pulse Oximetry 95 07/11/18 23:57 07/12/18 01:00 07/12/18 02:00 Temperature Pulse Rate 75 72 77 Respiratory Rate Blood Pressure Pulse Oximetry 07/12/18 03:00 07/12/18 04:00 07/12/18 05:00 Temperature 98 F Pulse Rate 70 73 74 Respiratory Rate 18 Blood Pressure 165/74 H Pulse Oximetry 96 07/12/18 06:00 07/12/18 07:00 07/12/18 07:45 Temperature 98.0 F Pulse Rate 76 74 75 Respiratory Rate 18 Blood Pressure 135/66 Pulse Oximetry 96 07/12/18 08:00 07/12/18 09:00 07/12/18 09:35 Temperature Pulse Rate 74 72 Respiratory Rate Blood Pressure Pulse Oximetry 95 07/12/18 10:00 07/12/18 11:00 07/12/18 12:00 Temperature 98.1 F Pulse Rate 72 72 74 Respiratory Rate 18 Blood Pressure 157/71 H Pulse Oximetry 99 07/12/18 13:00 07/12/18 15:13 Temperature 97.9 F Pulse Rate 73 78 Respiratory Rate 20 Blood Pressure 151/77 H Pulse Oximetry 96 Intake & Output 07/11/18 07/12/18 07/12/18 18:59 06:59 18:59 Intake Total 1100 / 1100 480 / 480 Output Total 0 / 0 0 / 0 0 / 0 Balance 1100 / 1100 480 / 480 0 / 0 Weight 93 kg Intake: Oral 1100 / 1100 480 / 480 Output: Urine 0 / 0 0 / 0 Hemodialysis Amount 0 / 0 Other: Date of Last Bowel Movement 07/09/18 07/09/18 07/09/18 # Bowel Movements 0 Narrative: GENERAL: NAD, AAOx3 SKIN: Warm and dry. HEAD: Atraumatic. Normocephalic. EYES: Pupils equal and round. No scleral icterus. No injection or drainage. ENT: No nasal bleeding or discharge. Mucous membranes pink and moist. NECK: Trachea midline. No JVD. CARDIOVASCULAR: Regular rate and rhythm. RESPIRATORY: No accessory muscle use. Clear to auscultation. Breath sounds equal bilaterally. GASTROINTESTINAL: Abdomen soft, non-tender, nondistended. Hepatic and splenic margins not palpable. MUSCULOSKELETAL: Extremities without clubbing, cyanosis, or edema. No obvious deformities. NEUROLOGICAL: Awake and alert. No obvious cranial nerve deficits. Motor grossly within normal limits. Five out of 5 muscle strength in the arms and legs. Normal speech. PSYCHIATRIC: Appropriate mood and affect; insight and judgment normal. Results 07/11/18 04:27 07/12/18 14:44 Cardiac Enzymes 07/11/18 Range/Units 04:27 AST 9 L (15-37) U/L Coagulation 07/11/18 07/12/18 Range/Units 04:27 05:38 PT 11.1 10.6 (9.8-11.6) sec CBC 07/11/18 Range/Units 04:27 WBC 6.4 (4.0-11.0) th/mm3 RBC 3.27 L (4.00-5.30) mil/mm3 Hgb 10.3 L (11.6-15.3) gm/dL Hct 32.1 L (35.0-46.0) % Plt Count 216 (150-450) th/mm3 Neut # (Auto) 4.3 (1.8-7.7) th/mm3 Lymph # (Auto) 1.3 (1.0-4.8) th/mm3 [place] # (Auto) 0.6 (0.0-0.9) th/mm3 Eos # (Auto) 0.2 (0.0-0.4) th/mm3 Baso # (Auto) 0.1 (0.0-0.2) th/mm3 Comprehensive Metabolic Panel 07/11/18 07/12/18 07/12/18 Range/Units 04:27 05:38 14:44 Sodium 142 138 (136-145) meq/L Potassium 5.3 H 6.0 H 4.2 D (3.5-5.1) meq/L Chloride 100 98 (98-107) meq/L Carbon Dioxide 31.2 29.0 (21.0-32.0) meq/L BUN 30 H 47 H (7-18) mg/dL Creatinine 6.55 H 8.50 H (0.50-1.00) mg/dL Calcium 8.1 L 8.4 L (8.5-10.1) mg/dL AST 9 L (15-37) U/L ALT 11 (10-53) U/L Alkaline Phosphatase 96 (45-117) U/L Total Protein 7.8 (6.4-8.2) g/dL Albumin 3.1 L (3.4-5.0) g/dL Intake and Output 07/12/18 07/12/18 07/12/18 06:59 14:59 22:59 Intake Total 480 / 480 Output Total 0 / 0 0 / 0 Balance 480 / 480 0 / 0 Intake: Oral 480 / 480 Output: Urine 0 / 0 Hemodialysis Amount 0 / 0 Other: Date of Last Bowel Movement 09/20/18 09/20/18 # Bowel Movements 0 Weight 93 kg - Imaging and Cardiology Imaging: Impressions Chest CTA 07/11/18 00:00 CONCLUSION: 1. Cardiomegaly, atherosclerosis with prominent coronary artery calcification. 2. No evidence for pulmonary embolism. 3. Mild groundglass infiltrates are noted bilaterally. Assessment and Plan - Assessment (1) AVNRT (AV red re-entry tachycardia) Code(s): I47.1 - Supraventricular tachycardia Status: Acute (2) Elevated troponin Code(s): R74.8 - Abnormal levels of other serum enzymes Status: Acute (3) ESRD (end stage renal disease) on dialysis Code(s): N18.6 - End stage renal disease; Z99.2 - Dependence on renal dialysis Status: Acute (4) Hypertension Code(s): I10 - Essential (primary) hypertension Status: Acute (5) Tobacco abuse Code(s): Z72.0 - Tobacco use Status: Acute - Plan 1) Elevated troponin Most likely Type 2 due to hypotension post HD 2) Cath showing no significant CAD 3) Tachyarrhythmia/SVT EKG showing AVNRT s/p chemical cardioversion with adenosine Rhythm stable overnight on metoprolol 4) ESRD on HD 5) HTN Midodrine stopped 6) Cardiovascularly stable for discharge Can follow up with Dr. Liz for further consideration of AVNRT ablation in the future
[2018-07-12 16:41] VITALS: PULSE 72
[2018-07-12] MEDS ORDERED: Iohexol 350 MG/ML 50 ML Vial (for Cath Lab) IVCONTRAST ONE (17:53)
== END 2018-07-12 17:54 | disposition home or self-care (01) ==
LOC: NEDA 12:01 → NEPC 12:01 → NEPFCDU 16:54 → HCIS 07-09 01:09
PROVIDERS: ADMIT Hospitalist; ATTEND Hospitalist

== ENCOUNTER 2018-08-17 09:25 | Observation (INO) ==
[2018-08-17 10:11] LABS: Baso % (Auto) 0.4 % (0.0-2.0); Eos # (Auto) 0.2 th/mm3 (0.0-0.4); Hematocrit 28.9 % (35.0-46.0); Hemoglobin 9.4 gm/dL (11.6-15.3); Lymph # (Auto) 0.9 th/mm3 (1.0-4.8); Lymph % (Auto) 10.5 % (9.0-44.0); Mean Corpuscular HGB Conc 32.7 % (32.0-36.0); Mean Corpuscular Hemoglobin 31.5 pg (27.0-34.0); Mean Corpuscular Volume 96.3 fL (80.0-100.0); Mean Platelet Volume 9.5 fL (7.0-11.0); Mono # (Auto) 0.4 th/mm3 (0.0-0.9); Mono % (Auto) 4.7 % (0.0-8.0); Neut # (Auto) 6.8 th/mm3 (1.8-7.7); Neut % (Auto) 82.4 % (16.0-70.0); Platelet Count 230 th/mm3 (150-450); Red Cell Distribution Width 18.7 % (11.6-17.2); White Blood Count 8.3 th/mm3 (4.0-11.0)
[2018-08-17 10:19] LABS: Activated Partial Thrombo Time 28.2 sec (24.3-30.1); Prothrombin Time 10.5 sec (9.8-11.6)
--- NOTE | 2018-08-17 10:29 | XR ---
EXAM DATE: 08/17/2018 10:24 AM EDT AGE/SEX: 57 years / Female INDICATIONS: Chest pain, short of breath CLINICAL DATA: This is the patient's initial encounter. Patient reports that signs and symptoms have been present for 1 day and indicates a pain score of Nonresponsive. MEDICAL/SURGICAL HISTORY: Renal failure, chronic. dialysis . AV shunt COMPARISON: [facility], CHEST 1V SINGLE AP, 07/08/2018. . FINDINGS: The heart is enlarged. There is no overt congestive failure. There are minimal parental changes in th e lung bases bilaterally. There is no pleural effusion. There is no pneumothorax. CONCLUSION: Moderate cardiomegaly without significant failure. Bibasilar parenchymal changes worse on the left. Electronically signed by: Corey Rogers MD 08/17/2018 10:28 AM EDT
[2018-08-17 10:49] LABS: Alanine Aminotransferase 17 U/L (10-53); Albumin 3.3 g/dL (3.4-5.0); Anion Gap 9 meq/L (5-15); Aspartate Aminotransferase 22 U/L (15-37); Blood Urea Nitrogen 37 mg/dL (7-18); Calcium 7.8 mg/dL (8.5-10.1); Chloride 99 meq/L (98-107); Glomerular Filtration Rate 9 mL/min (>89); Glucose,Random 129 mg/dL (74-106); Lipase 92 U/L (73-393); Magnesium 2.3 mg/dL (1.5-2.5); Potassium 3.9 meq/L (3.5-5.1); Sodium 138 meq/L (136-145)
[2018-08-17 10:50] LABS: Alkaline Phosphatase 132 U/L (45-117); Total Protein 8.2 g/dL (6.4-8.2)
--- NOTE | 2018-08-17 11:13 | ED ---
HPI General Chief Complaint: Chest Pain Stated Complaint: Chest pain Time Seen by Provider: 08/17/18 09:42 Source: patient Mode of arrival: EMS Limitations: other (poor historian) History of Present Illness HPI narrative: 57 y/o female presents by ambulance with chest pain while getting dialysis. She only received half of her dialysis. Her blood pressure was low by report and they gave her 2 nitroglycerin when the ambulance team arrived on scene her systolic was 70. She still has her dialysis accessed per the ambulance team. They held further nitroglycerin given blood pressure. Patient states her chest pain feels better. She states Dr. Ramirez is her tent finisher. She does not know who her rn neurology is. She does not recall her prior cardiac workup. She denies other concurrent complaints other than shortness of breath but is a poor historian. Related Data Home Medications Medication Instructions Recorded Confirmed B complex with C#20-folic acid 1 cap PO DAILY 05/19/18 08/17/18 [Renal Caps] allopurinol [Zyloprim] 100 mg PO DAILY 05/19/18 08/17/18 atorvastatin [Lipitor] 10 mg PO DAILY 05/19/18 08/17/18 bisacodyl [Dulcolax (bisacodyl)] 5 mg PO BID 05/19/18 08/17/18 brimonidine-timolol 1 drp EACH EYE Q12H 05/19/18 08/17/18 calcium acetate 667 mg PO TID 05/19/18 08/17/18 duloxetine [Cymbalta] 20 mg PO DAILY 05/19/18 08/17/18 famotidine [Pepcid] 20 mg PO BID 05/19/18 08/17/18 fluticasone-salmeterol [Advair 1 inh INHALATION BID 05/19/18 08/17/18 Diskus] furosemide [Lasix] 80 mg PO DAILY 05/19/18 08/17/18 insulin detemir U-100 [Levemir 10 unit SUB-Q HS 05/19/18 08/17/18 U-100 Insulin] promethazine 25 mg PO BID PRN 05/19/18 08/17/18 sennosides-docusate sodium [Senna 1 tab PO DAILY 05/19/18 08/17/18 Plus] melatonin 5 mg PO HS PRN 07/10/18 08/17/18 Previous Rx's Medication Instructions Recorded midodrine 5 mg PO TID tab 07/10/18 aspirin [Adult Low Dose Aspirin] 81 mg PO DAILY #30 tab 07/12/18 metoprolol tartrate 25 mg PO BID #60 tab 07/12/18 Allergies Allergy/AdvReac Type Severity Reaction Status Date / Time acetaminophen Allergy Severe VOMITING Verified 08/17/18 09:44 linezolid Allergy Severe VOMITING Verified 08/17/18 09:44 piperacillin Allergy Severe VOMITING Verified 08/17/18 09:44 simvastatin Allergy Severe VOMITING Verified 08/17/18 09:44 tazobactam Allergy Severe VOMITING Verified 08/17/18 09:44 oxycodone AdvReac Severe VOMITING Verified 08/17/18 09:44 Review of Systems ROS: all other systems reviewed are negative [facility] Medical History Medical History COPD (chronic obstructive pulmonary disease) (Acute) Chronic anticoagulation (Acute) Depression with anxiety (Acute) Diabetes mellitus (Acute) Gastroparesis (Acute) Glaucoma (Acute) Gout (Acute) Hyperlipidemia (Acute) Obesity (Acute) Peripheral arterial disease (Acute) Dialysis patient (Chronic) ESRD (end stage renal disease) on dialysis (Chronic) Hypertension (Chronic) Type 2 diabetes mellitus (Chronic) Family History Family History Other End stage renal disease Family history of diabetes mellitus Family history of hypertension Social History Social History Substance History: No History of Abuse Second Hand Smoke Exposure: No Smoking Status: Never smoker Tobacco Type: Cigarettes How Often Do You Have a Drink Containing Alcohol: 2 to 4 times a month Hx Recent Travel: No Recent Travel in [facility] within the Last 8 Weeks: No Recent Out of Country Travel within the Last 8 Weeks: No Immunization History Tetanus Immunization: Unsure Exam Narrative Exam Narrative: GENERAL: 57 y/o female in no apparent distress SKIN: Focused skin assessment warm/dry. HEAD: Atraumatic. Normocephalic. EYES: Pupils equal and round. No scleral icterus. No injection or drainage. ENT: No nasal bleeding or discharge. Mucous membranes pink and moist. NECK: Trachea midline CARDIOVASCULAR: Tachycardic rate and regular rhythm. RESPIRATORY: No accessory muscle use. Clear to auscultation. Breath sounds equal bilaterally. GASTROINTESTINAL: Abdomen soft, non-tender, nondistended. MUSCULOSKELETAL: No obvious deformities. No clubbing. No cyanosis. NEUROLOGICAL: Awake. moves all extremities. Normal speech. Course Reevaluation(s) Reevaluation #1: After discussion with rn neurology patient was given 6 mg of adenosine and converted to sinus rhythm. She will be admitted to the hospital for further care. is at bedside and does not know what medication she takes and was also updated. Patient was chemically cardioverted I was at bedside for the whole procedure. Pads were placed. Med was pushed quickly and then flushed. Patient had brief pause and then converted. Total procedure time was approximately 5 minutes Consultations Consultation #1: Dr. Blanc agrees to 6 mg of adenosine and will discuss case with Dr. Liz Consultation #2: Dr. Suggs will arrange patients remaining dialysis Consultation #3: Dr. Sinclair requests admission to [facility] Initial Documented Vital Signs Temperature 98.0 F 08/17/18 09:44 Pulse Rate 131 H 08/17/18 09:44 Respiratory Rate 22 08/17/18 09:44 Blood Pressure 99/53 L 08/17/18 09:44 Pulse Oximetry 98 08/17/18 09:44 Last Documented Vital Signs Temperature 98.0 F 08/17/18 09:44 Pulse Rate 85 08/17/18 12:06 Respiratory Rate 21 08/17/18 12:06 Blood Pressure 156/72 H 08/17/18 12:06 Pulse Oximetry 95 08/17/18 12:06 Medical Decision Making [facility] Narrative Medical decision making narrative: Patient arrived by ambulance for chest pain and shortness of breath. She is tachycardic in the 120-130 range. Her blood pressure has improved from prior. She has currently no active chest pain. Will follow blood work and x-ray and discuss with cardiology Medical Screen Exam Complete: Yes Emergency Medical Condition: Yes Differential Diagnosis Differential Diagnosis: pneumonia, A flutter, anemia, electrolyte abnormality, CHF, COPD, NC, Medical Records Medical records reviewed: Yes I reviewed the patient's medical records. Last month patient had cardiac catheter that showed no stainable disease, patient was given chemical cardioversion for slow intermittent SVT with adenosine Lab Data Lab results reviewed: Yes I reviewed the patient's lab results. Result diagrams: 08/17/18 09:55 08/17/18 09:55 Lab Results 08/17/18 08/17/18 08/17/18 Range/Units 09:55 09:55 09:55 WBC 8.3 (4.0-11.0) th/mm3 RBC 3.00 L (4.00-5.30) mil/mm3 Hgb 9.4 L (11.6-15.3) gm/dL Hct 28.9 L (35.0-46.0) % MCV 96.3 (80.0-100.0) fL MCH 31.5 (27.0-34.0) pg MCHC 32.7 (32.0-36.0) % RDW 18.7 H (11.6-17.2) % Plt Count 230 (150-450) th/mm3 MPV 9.5 (7.0-11.0) fL Neut % (Auto) 82.4 H (16.0-70.0) % Lymph % (Auto) 10.5 (9.0-44.0) % [place] % (Auto) 4.7 (0.0-8.0) % Eos % (Auto) 2.0 (0.0-4.0) % Baso % (Auto) 0.4 (0.0-2.0) % Neut # (Auto) 6.8 (1.8-7.7) th/mm3 Lymph # (Auto) 0.9 L (1.0-4.8) th/mm3 [place] # (Auto) 0.4 (0.0-0.9) th/mm3 Eos # (Auto) 0.2 (0.0-0.4) th/mm3 Baso # (Auto) 0.0 (0.0-0.2) th/mm3 WBC Differential . Differential Comment Auto diff final PT 10.5 (9.8-11.6) sec INR 1.0 Ratio APTT 28.2 (24.3-30.1) sec Sodium 138 (136-145) meq/L Potassium 3.9 (3.5-5.1) meq/L Chloride 99 (98-107) meq/L Carbon Dioxide 30.0 (21.0-32.0) meq/L Anion Gap 9 (5-15) meq/L BUN 37 H (7-18) mg/dL Creatinine 6.07 H (0.50-1.00) mg/dL Estimated GFR 9 L (>89) mL/min Random Glucose 129 H (74-106) mg/dL Lactic Acid (0.4-2.0) mmol/L Calcium 7.8 L (8.5-10.1) mg/dL Magnesium 2.3 (1.5-2.5) mg/dL Total Bilirubin 0.6 (0.2-1.0) mg/dL AST 22 (15-37) U/L ALT 17 (10-53) U/L Alkaline Phosphatase 132 H (45-117) U/L Troponin I Less than 0.02 L (0.02-0.05) ng/mL Total Protein 8.2 (6.4-8.2) g/dL Albumin 3.3 L (3.4-5.0) g/dL Lipase 92 (73-393) U/L 08/17/18 08/17/18 Range/Units 09:55 09:56 WBC (4.0-11.0) th/mm3 RBC (4.00-5.30) mil/mm3 Hgb (11.6-15.3) gm/dL Hct (35.0-46.0) % MCV (80.0-100.0) fL MCH (27.0-34.0) pg MCHC (32.0-36.0) % RDW (11.6-17.2) % Plt Count (150-450) th/mm3 MPV (7.0-11.0) fL Neut % (Auto) (16.0-70.0) % Lymph % (Auto) (9.0-44.0) % [place] % (Auto) (0.0-8.0) % Eos % (Auto) (0.0-4.0) % Baso % (Auto) (0.0-2.0) % Neut # (Auto) (1.8-7.7) th/mm3 Lymph # (Auto) (1.0-4.8) th/mm3 [place] # (Auto) (0.0-0.9) th/mm3 Eos # (Auto) (0.0-0.4) th/mm3 Baso # (Auto) (0.0-0.2) th/mm3 WBC Differential Differential Comment PT (9.8-11.6) sec INR Ratio APTT (24.3-30.1) sec Sodium (136-145) meq/L Potassium (3.5-5.1) meq/L Chloride (98-107) meq/L Carbon Dioxide (21.0-32.0) meq/L Anion Gap (5-15) meq/L BUN (7-18) mg/dL Creatinine (0.50-1.00) mg/dL Estimated GFR (>89) mL/min Random Glucose (74-106) mg/dL Lactic Acid 1.6 (0.4-2.0) mmol/L Calcium (8.5-10.1) mg/dL Magnesium Cancelled (1.5-2.5) mg/dL Total Bilirubin (0.2-1.0) mg/dL AST (15-37) U/L ALT (10-53) U/L Alkaline Phosphatase (45-117) U/L Troponin I (0.02-0.05) ng/mL Total Protein (6.4-8.2) g/dL Albumin (3.4-5.0) g/dL Lipase (73-393) U/L Imaging Data Attestation: I personally reviewed and interpreted this imaging study as follows : Radiologist's impression: Chest X-Ray 08/17/18 09:49 CONCLUSION: Moderate cardiomegaly without significant failure. Bibasilar parenchymal changes worse on the left. Discharge Plan Discharge Disposition Patient Disposition: 30 Still Patient Discharge Details Diagnosis: AVNRT (AV red re-entry tachycardia), ESRD (end stage renal disease) on dialysis, Chest pain Physicians Team ED Provider: Stephenie Olvera Primary Care Provider: John Genao Attending Provider: Susan Sinclair Other Providers: Sai Suggs ; Sree Blanc ; Anjelica Liz Discharge Interventions Interventions: ED Discharge Assessment Last Done: 08/17/18 13:31 Vital Signs Last Done: 08/17/18 09:44 Status ED Status: Left Department Discharge Information Discharge Date/Time: 08/17/18 13:10
[2018-08-17] MEDS ORDERED: Adenosine Inj 6 MG/2 ML Syringe IV.PUSH ONE (11:51)
[2018-08-17] MEDS ORDERED: Sod Chloride 0.9% Inj 1,000 ML IV.CONT PRN (12:22)
[2018-08-17] MEDS ORDERED: Acetaminophen 325 MG Tablet PO PRN (12:22)
[2018-08-17] MEDS ORDERED: Albumin Human 25% Inj 100 ML IV.SIG PRN (12:22)
[2018-08-17] MEDS ORDERED: Heparin 10,000 UNITS/10 ML Vial (for IV use) OTHER PRN ×2 (12:22)
[2018-08-17] MEDS ORDERED: Sod Chloride 0.9% Inj 1,000 ML OTHER PRN ×2 (12:22)
[2018-08-17] MEDS ORDERED: Gelatin 12 MM/7 MM Topical Foam TOPICAL PRN (12:22)
[2018-08-17] MEDS ORDERED: Bisacodyl 10 MG Supp RECTAL PRN (13:02)
[2018-08-17] MEDS ORDERED: Dextrose 50% in Water 50 ML Vial IV.PUSH PRN (13:08)
--- NOTE | 2018-08-17 13:57 | P.CONNP ---
History of Present Illness Service: Nephrology Reason for Consult: ESRD Primary Care Provider: John Genao Chief Complaint: chest pain History of Present Illness: This is a 57 year old lady with history of ESRD for which she is on HD MWF. Patient apparently started to complain of chest pain while at dialysis in [facility] this morning. She was given nitroglycerin sublingually twice. Ambulance was summoned, and paramedics noted that her BP was low with SBP in 70s. Patient was brought to the ER. She was noted to be tachycardic, thought to be SVT given 6 mg of Adenosine. She has converted back to NSR currently when I saw her. She complains of shortness of breath, but no chest pain. She is legally blind. Patient underwent cardiac catheterization on 07/10/18, but no hemodynamically significant coronary lesions were found. She did have an episode of SVT on which responded to adenosine. Review of Systems Constitutional: Reports anorexia, Reports malaise Eyes: Denies blurry vision Ears, Nose, Mouth, and Throat: Denies abnormal hearing Cardiovascular: Reports chest pain, Reports rapid, pounding, or irregular heartbeat, Reports shortness of breath Respiratory: Reports shortness of breath, Denies change in phlegm color, Denies excessive phlegm production, Denies wheezing Gastrointestinal: Denies abdominal pain, Denies belching, Denies black, tarry stools Genitourinary: Denies abnormal vaginal bleeding Skin/Breast: Denies bleeding lesions, Denies non-healing lesions, Denies rash PMFSH - History History 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, 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 - Medical History Medical History: Medical History (Last Reviewed 08/17/18 @ 11:11 by Stephenie Olvera MD) COPD (chronic obstructive pulmonary disease) Chronic anticoagulation Depression with anxiety Diabetes mellitus Gastroparesis Glaucoma Gout Hyperlipidemia Obesity Peripheral arterial disease Dialysis patient ESRD (end stage renal disease) on dialysis Hypertension Type 2 diabetes mellitus - Family History Family History: Family History (Last Reviewed 08/17/18 @ 11:11 by Stephenie Olvera MD) Other End stage renal disease Family history of diabetes mellitus Family history of hypertension - Tobacco History Second Hand Smoke Exposure: No Tobacco Use In Past 30 Days: No Smoking Status: Never smoker Tobacco Type: Cigarettes - Alcohol History How Often Do You Have a Drink Containing Alcohol: 2 to 4 times a month - Substance Use History Substance History: No History of Abuse - Travel History History of Recent Travel: No Recent Travel in the [place] Within the Last 8 Weeks: No Recent Travel Out of the Country Within the Last 8 Weeks: No - Immunization History Tetanus Immunization: Unsure Medications and Allergies Active Medications: Active Medications Acetaminophen (Tylenol) 650 mg PO UNSCH PRN PRN Reason: SEE LABEL COMMENTS Al Hydroxide/Mg Hydroxide (Milk Of Estephania Liq) 30 ml PO Q12H PRN PRN Reason: Mild Constipation Allopurinol (Zyloprim) 100 mg PO DAILY HAI Aspirin (Ecotrin) 81 mg PO DAILY HAI Atorvastatin Calcium (Lipitor) 10 mg PO DAILY HAI Bisacodyl (Dulcolax Supp) 10 mg RECTAL DAILY PRN PRN Reason: SEVERE CONSITIPATION Clonidine HCl (Catapres) 0.1 mg PO UNSCH PRN PRN Reason: SEE LABEL COMMENTS Dextrose (D50w Vial) 50 ml IV.PUSH UNSCH PRN PRN Reason: PER HYPOGLYCEMIA PROTOCOL Diphenhydramine HCl (Benadryl) 25 mg PO UNSCH PRN PRN Reason: SEE LABEL COMMENTS Duloxetine HCl (Cymbalta) 20 mg PO DAILY HAI Enoxaparin Sodium (Lovenox Inj) 30 mg SQ Q24H HAI Epoetin Francisco (Epogen Inj) 10,000 unit IV.PUSH UNSCH PRN PRN Reason: SEE LABEL COMMENTS Famotidine (Pepcid) 20 mg PO BID HAI Furosemide (Lasix) 80 mg PO DAILY HAI Gelatin (Gelfoam 12 Mm/7 Mm Topical) 1 foam TOPICAL PRN PRN PRN Reason: help stop bleeding from site Gentamicin Sulfate (Gentamicin Inj) 20 mg OTHER WITH DIALYSIS PRN PRN Reason: Dwell Gentamycin Lock Glucagon (Glucagon Inj) 1 mg OTHER PRN PRN PRN Reason: for Hypoglycemia Protocol Heparin Sodium (Porcine) (Heparin Inj) 8,000 units OTHER WITH DIALYSIS PRN PRN Reason: for machine prime Heparin Sodium (Porcine) (Heparin Inj) 1,000 units OTHER WITH DIALYSIS PRN PRN Reason: Dwell Heparin to Fill Catheter Albumin Human (Flexbumin 25% Inj) 100 mls @ 60 mls/hr IV.SIG WITH DIALYSIS PRN PRN Reason: hypotension / volume replace Sodium Chloride (Ns Inj) 1,000 mls @ 0 mls/hr OTHER .Q0M PRN PRN Reason: for prime and rinse back Sodium Chloride (Ns Inj) 1,000 mls @ 200 mls/hr OTHER .Q5H PRN PRN Reason: for dialyzer flush PRN Sodium Chloride (Ns Inj) 1,000 mls @ 0 mls/hr IV.CONT .Q0M PRN PRN Reason: hypotension / volume replace Insulin Aspart (Novolog Insulin Correctional Sugar Inj) 0 unit SQ ACHS HAI; Protocol Insulin Detemir (Levemir Inj) 10 unit SQ HS HAI Lactulose (Lactulose Liq) 30 ml PO DAILY PRN PRN Reason: SEVERE CONSITIPATION Mannitol (Mannitol Inj) 12.5 gm IV.PUSH UNSCH PRN PRN Reason: hypotension / volume replace Melatonin (Melatonin) 5 mg PO HS PRN PRN Reason: Insomnia Metoprolol Tartrate (Lopressor) 25 mg PO BID [facility] Midodrine (Proamatine) 5 mg PO TID [facility] Nitroglycerin (Nitrostat Sl) 0.4 mg SL Q5M PRN PRN Reason: CHEST PAIN Non-Formulary Medication (Brimonidine-Timolol [Brimonidine-Timolol]) 1 drp EACH EYE Q12H [facility] Non-Formulary Medication (Calcium Acetate [Calcium Acetate]) 667 mg PO TID [facility] Non-Formulary Medication (Fluticasone-Salmeterol [Advair Diskus]) 1 inh INHALATION BID [facility] Ondansetron HCl (Zofran Inj) 4 mg IV.PUSH UNSCH PRN PRN Reason: NAUSEA OR VOMITING Promethazine HCl (Phenergan) 25 mg PO BID PRN PRN Reason: Nausea Senna/Docusate Sodium (Maya-Colace) 1 tab PO BID [facility] Sennosides (Senokot) 17.2 mg PO Q12H PRN PRN Reason: Moderate Constipation Sodium Chloride (Ns Flush) 2 ml IV.FLUSH UNSCH PRN PRN Reason: FLUSH AFTER USING IV ACCESS Sodium Chloride (Ns Flush) 5 ml IV.FLUSH PRN PRN PRN Reason: flush each lumen during HD Allergies Allergy/AdvReac Type Severity Reaction Status Date / Time acetaminophen Allergy Severe VOMITING Verified 08/17/18 09:44 linezolid Allergy Severe VOMITING Verified 08/17/18 09:44 piperacillin Allergy Severe VOMITING Verified 08/17/18 09:44 simvastatin Allergy Severe VOMITING Verified 08/17/18 09:44 tazobactam Allergy Severe VOMITING Verified 08/17/18 09:44 oxycodone AdvReac Severe VOMITING Verified 08/17/18 09:44 Home Medications Medication Instructions Recorded Confirmed Type B complex with C#20-folic acid 1 cap PO DAILY 05/19/18 08/17/18 History [Renal Caps] allopurinol [Zyloprim] 100 mg PO DAILY 05/19/18 08/17/18 History atorvastatin [Lipitor] 10 mg PO DAILY 05/19/18 08/17/18 History bisacodyl [Dulcolax (bisacodyl)] 5 mg PO BID 05/19/18 08/17/18 History brimonidine-timolol 1 drp EACH EYE Q12H 05/19/18 08/17/18 History calcium acetate 667 mg PO TID 05/19/18 08/17/18 History duloxetine [Cymbalta] 20 mg PO DAILY 05/19/18 08/17/18 History famotidine [Pepcid] 20 mg PO BID 05/19/18 08/17/18 History fluticasone-salmeterol [Advair 1 inh INHALATION BID 05/19/18 08/17/18 History Diskus] furosemide [Lasix] 80 mg PO DAILY 05/19/18 08/17/18 History insulin detemir U-100 [Levemir 10 unit SUB-Q HS 05/19/18 08/17/18 History U-100 Insulin] promethazine 25 mg PO BID PRN 05/19/18 08/17/18 History sennosides-docusate sodium [Senna 1 tab PO DAILY 05/19/18 08/17/18 History Plus] melatonin 5 mg PO HS PRN 07/10/18 08/17/18 History Exam Vital signs: Vital Signs 08/17/18 09:44 08/17/18 10:33 08/17/18 10:34 Temperature 98.0 F Pulse Rate 131 H 127 H Respiratory Rate 22 21 Blood Pressure 99/53 L 103/54 L Pulse Oximetry 98 94 L 95 08/17/18 11:25 08/17/18 12:06 Temperature Pulse Rate 128 H 85 Respiratory Rate 21 21 Blood Pressure 112/67 156/72 H Pulse Oximetry 96 95 Intake & Output 08/16/18 08/17/18 08/17/18 18:59 06:59 18:59 Weight 90.718 kg - Constitutional no acute distress - Routine HEENT Exam Head: Present: normocephalic, atraumatic, scalp tenderness ENT: Absent: mucous membranes moist Comments: legally blind. - Routine Neck Exam Present: supple. Absent: full ROM, JVD, carotid bruit, lymphadenopathy, thyromegaly - Routine Respiratory Exam Present: CTA bilaterally, distant breath sounds. Absent: accessory muscle use - Routine Cardiovascular Exam Present: RRR, S1, S2 - Routine Abdominal Exam Present: soft, normoactive bowel sounds. Absent: tenderness, wound, drain - Routine Extremities Exam Present: pulses intact, AV fistula. Absent: edema, full ROM - Routine Neurological Exam Present: oriented X3, hearing grossly intact, normal speech. Absent: facial asymmetry Results - Lab Results 08/17/18 09:55 08/17/18 09:55 Most recent lab results Calcium 7.8 mg/dL (8.5-10.1) L 08/17/18 09:55 Magnesium 2.3 mg/dL (1.5-2.5) 08/17/18 09:55 Assessment and Plan - Assessment (1) ESRD (end stage renal disease) on dialysis Code(s): N18.6 - End stage renal disease; Z99.2 - Dependence on renal dialysis Status: Acute Plan: patient did not complete dialysis treatment today. I will dialyze her today for 1.5 hours, she may need some fluid removal. Monitor fluid and electrolytes. (2) Chest pain Code(s): R07.9 - Chest pain, unspecified Status: Acute Plan: Could have been related to tachycardia. Resolved. She had a negative cardiac catheterization last month. (3) AVNRT (AV red re-entry tachycardia) Code(s): I47.1 - Supraventricular tachycardia Status: Acute Plan: given adenosine. Cardiology to evaluate (4) Anemia of renal disease Code(s): D63.1 - Anemia in chronic kidney disease Status: Acute (5) Hypertension Code(s): I10 - Essential (primary) hypertension Status: Acute Plan: monitor BP. It was low in dialysis unit, currently more acceptable. (6) Metabolic bone disease Code(s): E88.9 - Metabolic disorder, unspecified; M90.80 - Osteopathy in diseases classified elsewhere, unspecified site Status: Acute Plan: monitor phosphorus intermittently. Continue PhosLo with meals. - Plan Epogen with dialysis. - Attending Attestation Thanks for the consult. (2) Chest pain Qualifiers: Chest pain type: unspecified Qualified Code(s): R07.9 - Chest pain, unspecified
--- NOTE | 2018-08-17 14:39 | P.HP ---
History of Present Illness Primary Care Physician: John Genao Chief Complaint: chest pain History of Present Illness: The patient is a very pleasant 57-year-old -[place] female presents by ambulance with chest pain while getting dialysis. She only received half of her dialysis. Her blood pressure was low by report and they gave her 2 nitroglycerin when the ambulance team arrived on scene her systolic was 70. She still has her dialysis accessed per the ambulance team. They held further nitroglycerin given low blood pressure. Patient states her chest pain feels better. She states Dr. 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 She does not recall her prior cardiac workup. She denies other concurrent complaints other than shortness of breath but is a poor historian. Patient is she received adenosine, cardiology Dr. Blanc has evaluated the patient. Also patient went for dialysis by Dr. Delgadillo and nephrology is following also the patient says she feels better however she feels very tired after this episode. Has some shortness of breath however she is saturating well on room air. Per nurse patient is coughing more. Patient is getting hemodialysis. 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 - Medical History Medical History: Medical History (Last Reviewed 08/17/18 @ 14:34 by Susan Sinlcair MD) COPD (chronic obstructive pulmonary disease) Chronic anticoagulation Depression with anxiety Diabetes mellitus Gastroparesis Glaucoma Gout Hyperlipidemia Obesity Peripheral arterial disease Dialysis patient ESRD (end stage renal disease) on dialysis Hypertension Type 2 diabetes mellitus - Surgical History Surgical History: Surgical History (Last Updated 08/17/18 @ 14:34 by Susan Sinclair MD) AV fistula (Acute) - Family History Family History: Family History (Last Reviewed 08/17/18 @ 14:34 by Susan Sinclair MD) Other End stage renal disease Family history of diabetes mellitus Family history of hypertension - Social History I have reviewed the patient's Social History: Yes - Tobacco History Second Hand Smoke Exposure: No Tobacco Use In Past 30 Days: No Smoking Status: Never smoker Tobacco Type: Cigarettes - Alcohol History How Often Do You Have a Drink Containing Alcohol: 2 to 4 times a month - Substance Use History Substance History: No History of Abuse - Travel History History of Recent Travel: No Recent Travel in the [place] Within the Last 8 Weeks: No Recent Travel Out of the Country Within the Last 8 Weeks: No - Immunization History Tetanus Immunization: Unsure Medications and Allergies Active Medications: Active Medications Acetaminophen (Tylenol) 650 mg PO UNSCH PRN PRN Reason: SEE LABEL COMMENTS Al Hydroxide/Mg Hydroxide (Milk Of Estephania [place]) 30 ml PO Q12H PRN PRN Reason: Mild Constipation Allopurinol (Zyloprim) 100 mg PO DAILY HAI Aspirin (Ecotrin) 81 mg PO DAILY HAI Atorvastatin Calcium (Lipitor) 10 mg PO DAILY [facility]I Bisacodyl (Dulcolax Supp) 10 mg RECTAL DAILY PRN PRN Reason: SEVERE CONSITIPATION Budesonide/Formoterol Fumarate (Symbicort 160/4.5 Mcg Inh) 2 puff INH BID HAI Calcium Acetate (Phoslo) 667 mg PO TID [facility] Clonidine HCl (Catapres) 0.1 mg PO UNSCH PRN PRN Reason: SEE LABEL COMMENTS Dextrose (D50w Vial) 50 ml IV.PUSH UNSCH PRN PRN Reason: PER HYPOGLYCEMIA PROTOCOL Diphenhydramine HCl (Benadryl) 25 mg PO UNSCH PRN PRN Reason: SEE LABEL COMMENTS Enoxaparin Sodium (Lovenox Inj) 30 mg SQ Q24H [facility]I Epoetin Francisco (Epogen Inj) 10,000 unit IV.PUSH UNSCH PRN PRN Reason: SEE LABEL COMMENTS Famotidine (Pepcid) 10 mg PO BID [facility] Furosemide (Lasix) 80 mg PO DAILY [facility]I Gelatin (Gelfoam 12 Mm/7 Mm Topical) 1 foam TOPICAL PRN PRN PRN Reason: help stop bleeding from site Gentamicin Sulfate (Gentamicin Inj) 20 mg OTHER WITH DIALYSIS PRN PRN Reason: Dwell Gentamycin Lock Glucagon (Glucagon Inj) 1 mg OTHER PRN PRN PRN Reason: for Hypoglycemia Protocol Heparin Sodium (Porcine) (Heparin Inj) 8,000 units OTHER WITH DIALYSIS PRN PRN Reason: for machine prime Heparin Sodium (Porcine) (Heparin Inj) 1,000 units OTHER WITH DIALYSIS PRN PRN Reason: Dwell Heparin to Fill Catheter Albumin Human (Flexbumin 25% Inj) 100 mls @ 60 mls/hr IV.SIG WITH DIALYSIS PRN PRN Reason: hypotension / volume replace Sodium Chloride (Ns Inj) 1,000 mls @ 0 mls/hr OTHER .Q0M PRN PRN Reason: for prime and rinse back Sodium Chloride (Ns Inj) 1,000 mls @ 200 mls/hr OTHER .Q5H PRN PRN Reason: for dialyzer flush PRN Sodium Chloride (Ns Inj) 1,000 mls @ 0 mls/hr IV.CONT .Q0M PRN PRN Reason: hypotension / volume replace Insulin Aspart (Novolog Insulin Correctional Sugar Inj) 0 unit SQ ACHS HAI; Protocol Insulin Detemir (Levemir Inj) 10 unit SQ HS [facility]I Lactulose (Lactulose Liq) 30 ml PO DAILY PRN PRN Reason: SEVERE CONSITIPATION Mannitol (Mannitol Inj) 12.5 gm IV.PUSH UNSCH PRN PRN Reason: hypotension / volume replace Melatonin (Melatonin) 5 mg PO HS PRN PRN Reason: Insomnia Metoprolol Tartrate (Lopressor) 25 mg PO BID [facility]I Midodrine (Proamatine) 5 mg PO TID [facility] Nitroglycerin (Nitrostat Sl) 0.4 mg SL Q5M PRN PRN Reason: CHEST PAIN Ondansetron HCl (Zofran Inj) 4 mg IV.PUSH UNSCH PRN PRN Reason: NAUSEA OR VOMITING Pt Own Med - ( Brimonidine-Timolol [Brimonidine-Timolol ] 1 Drp) 0 each EACH EYE Q12H [facility]I Promethazine HCl (Phenergan) 25 mg PO BID PRN PRN Reason: Nausea Senna/Docusate Sodium (Maya-Colace) 1 tab PO BID [facility] Sennosides (Senokot) 17.2 mg PO Q12H PRN PRN Reason: Moderate Constipation Sodium Chloride (Ns Flush) 2 ml IV.FLUSH UNSCH PRN PRN Reason: FLUSH AFTER USING IV ACCESS Sodium Chloride (Ns Flush) 5 ml IV.FLUSH PRN PRN PRN Reason: flush each lumen during HD Allergies Allergy/AdvReac Type Severity Reaction Status Date / Time acetaminophen Allergy Severe VOMITING Verified 08/17/18 09:44 linezolid Allergy Severe VOMITING Verified 08/17/18 09:44 piperacillin Allergy Severe VOMITING Verified 08/17/18 09:44 simvastatin Allergy Severe VOMITING Verified 08/17/18 09:44 tazobactam Allergy Severe VOMITING Verified 08/17/18 09:44 oxycodone AdvReac Severe VOMITING Verified 08/17/18 09:44 Home Medications Medication Instructions Recorded Confirmed Type B complex with C#20-folic acid 1 cap PO DAILY 05/19/18 08/17/18 History [Renal Caps] allopurinol [Zyloprim] 100 mg PO DAILY 05/19/18 08/17/18 History atorvastatin [Lipitor] 10 mg PO DAILY 05/19/18 08/17/18 History bisacodyl [Dulcolax (bisacodyl)] 5 mg PO BID 05/19/18 08/17/18 History brimonidine-timolol 1 drp EACH EYE Q12H 05/19/18 08/17/18 History calcium acetate 667 mg PO TID 05/19/18 08/17/18 History duloxetine [Cymbalta] 20 mg PO DAILY 05/19/18 08/17/18 History famotidine [Pepcid] 20 mg PO BID 05/19/18 08/17/18 History fluticasone-salmeterol [Advair 1 inh INHALATION BID 05/19/18 08/17/18 History Diskus] furosemide [Lasix] 80 mg PO DAILY 05/19/18 08/17/18 History insulin detemir U-100 [Levemir 10 unit SUB-Q HS 05/19/18 08/17/18 History U-100 Insulin] promethazine 25 mg PO BID PRN 05/19/18 08/17/18 History sennosides-docusate sodium [Senna 1 tab PO DAILY 05/19/18 08/17/18 History Plus] melatonin 5 mg PO HS PRN 07/10/18 08/17/18 History Exam Vital signs: Vital Signs 08/17/18 09:44 08/17/18 10:33 08/17/18 10:34 Temperature 98.0 F Pulse Rate 131 H 127 H Respiratory Rate 22 21 Blood Pressure 99/53 L 103/54 L Pulse Oximetry 98 94 L 95 08/17/18 11:25 08/17/18 12:06 Temperature Pulse Rate 128 H 85 Respiratory Rate 21 21 Blood Pressure 112/67 156/72 H Pulse Oximetry 96 95 Intake & Output 08/16/18 08/17/18 08/17/18 18:59 06:59 18:59 Weight 90.718 kg Narrative: GENERAL: Very pleasant 57-year-old -[place] female, in bed appears in not acute distress at this time. Legally blind. SKIN: Warm and dry. Dialysis fistula in place, normal bruit. HEAD: Atraumatic. Normocephalic. EYES: Pupils equal and round. No scleral icterus. No injection or drainage. ENT: No nasal bleeding or discharge. Mucous membranes pink and moist. NECK: Trachea midline. No JVD. CARDIOVASCULAR: Regular rate and rhythm. RESPIRATORY: No accessory muscle use. Clear to auscultation. Breath sounds equal bilaterally. GASTROINTESTINAL: Abdomen soft, non-tender, nondistended. Hepatic and splenic margins not palpable. MUSCULOSKELETAL: Extremities without clubbing, cyanosis, or edema. No obvious deformities. NEUROLOGICAL: Awake and alert. No obvious cranial nerve deficits. Motor grossly within normal limits. Five out of 5 muscle strength in the arms and legs. Normal speech. PSYCHIATRIC: Appropriate mood and affect; insight and judgment normal. Results - Labs CBC & Chem 7: 08/17/18 09:55 08/17/18 09:55 Labs: Laboratory Results - last 24 hr 08/17/18 08/17/18 08/17/18 09:55 09:55 09:55 WBC 8.3 RBC 3.00 L Hgb 9.4 L Hct 28.9 L MCV 96.3 MCH 31.5 MCHC 32.7 RDW 18.7 H Plt Count 230 MPV 9.5 Neut % (Auto) 82.4 H Lymph % (Auto) 10.5 [place] % (Auto) 4.7 Eos % (Auto) 2.0 Baso % (Auto) 0.4 Neut # (Auto) 6.8 Lymph # (Auto) 0.9 L [place] # (Auto) 0.4 Eos # (Auto) 0.2 Baso # (Auto) 0.0 WBC Differential . Differential Comment Auto diff final PT 10.5 INR 1.0 APTT 28.2 Sodium 138 Potassium 3.9 Chloride 99 Carbon Dioxide 30.0 Anion Gap 9 BUN 37 H Creatinine 6.07 H Estimated GFR 9 L Random Glucose 129 H Lactic Acid Calcium 7.8 L Magnesium 2.3 Total Bilirubin 0.6 AST 22 ALT 17 Alkaline Phosphatase 132 H Troponin I Less than 0.02 L Total Protein 8.2 Albumin 3.3 L Lipase 92 08/17/18 08/17/18 09:55 09:56 WBC RBC Hgb Hct MCV MCH MCHC RDW Plt Count MPV Neut % (Auto) Lymph % (Auto) [place] % (Auto) Eos % (Auto) Baso % (Auto) Neut # (Auto) Lymph # (Auto) [place] # (Auto) Eos # (Auto) Baso # (Auto) WBC Differential Differential Comment PT INR APTT Sodium Potassium Chloride Carbon Dioxide Anion Gap BUN Creatinine Estimated GFR Random Glucose Lactic Acid 1.6 Calcium Magnesium Cancelled Total Bilirubin AST ALT Alkaline Phosphatase Troponin I Total Protein Albumin Lipase - Imaging Impressions Chest X-Ray 08/17/18 09:49 CONCLUSION: Moderate cardiomegaly without significant failure. Bibasilar parenchymal changes worse on the left. Caprini VTE Risk Assessment Caprini VTE Risk Assessment: Moderate/High Risk (score >= 2) Caprini Risk Assessment Model: Point Value = 1 Point Value = 2 Point Value = 3 Point Value = 5 Age 41-60 Minor surgery BMI > 25 kg/m2 Swollen legs Varicose veins or History of unexplained or recurrent spontaneous Oral contraceptives or hormone replacement Sepsis (< 1 month) Serious lung disease, including pneumonia (< 1 month) Abnormal pulmonary function Acute myocardial infarction Congestive heart failure (< 1 month) History of inflammatory bowel disease Medical patient at bed rest Age 61-74 Arthroscopic surgery Major open surgery (> 45 min) Laparoscopic surgery (> 45 min) Malignancy Confined to bed (> 72 hours) Immobilizing plaster cast Central venous access Age >= 75 History of VTE Family history of VTE Factor V Leiden Prothrombin [id number] Lupus anticoagulant Anticardiolipin antibodies Elevated serum homocysteine Heparin-induced thrombocytopenia Other congenital or acquired thrombophilia Stroke (< 1 month) Elective arthroplasty Hip, pelvis, or leg fracture Acute spinal cord injury (< 1 month) Prophylaxis Regimen: Total Risk Factor Score Risk Level Prophylaxis Regimen 0-1 Low Early ambulation 2 Moderate Order ONE of the following: *Sequential Compression Device (SCD) *Heparin 5000 units SQ BID 3-4 Higher Order ONE of the following medications: *Heparin 5000 units SQ TID *Enoxaparin/Lovenox 40 mg SQ daily (WT < 150 kg, CrCl > 30 mL/min) *Enoxaparin/Lovenox 30 mg SQ daily (WT < 150 kg, CrCl > 10-29 mL/min) *Enoxaparin/Lovenox 30 mg SQ BID (WT < 150 kg, CrCl > 30 mL/min) AND/OR *Sequential Compression Device (SCD) 5 or more Highest Order ONE of the following medications: *Heparin 5000 units SQ TID (Preferred with Epidurals) *Enoxaparin/Lovenox 40 mg SQ daily (WT < 150 kg, CrCl > 30 mL/min) *Enoxaparin/Lovenox 30 mg SQ daily (WT < 150 kg, CrCl > 10-29 mL/min) *Enoxaparin/Lovenox 30 mg SQ BID (WT < 150 kg, CrCl > 30 mL/min) AND *Sequential Compression Device (SCD) Assessment and Plan - Plan 57-year-old female with past medical history of independent diabetes mellitus, legally blind, ESRD on hemodialysis who came from dialysis to the emergency room because was noted with chest pain, and palpitations AVNRT Received adenosine in the emergency room but responded very well now is normal sinus rhythm Cardiology was consulted Dr. Coronado has seen the patient in the emergency room. Restart metoprolol Monitor on telemetry ESRD on hemodialysis Consult nephrology Dr. John Beckwith has seen the patient Patient will go for dialysis today Insulin-dependent diabetes mellitus Continue insulin, monitor blood sugar Legal blind. Patient to bring all medications from his. Restart home medications as appropriate DVT prophylaxis SCDs/teds, Lovenox per renal dose Code Status: Full code Discussed Condition With: Patient, nurse, ED physician Dr. Olvera
[2018-08-17] MEDS ORDERED: BRIMONIDINE TIMOLOL EACH EYE SCH (16:00)
[2018-08-17] MEDS: Enoxaparin Inj 30 MG/0.3 ML Syringe SQ SCH (16:04)
[2018-08-17] MEDS: Metoprolol Tartrate 25 MG Tablet PO SCH ×2 (16:04→21:18)
[2018-08-17] MEDS: Calcium Acetate 667 MG Capsule PO SCH (17:12)
[2018-08-17] MEDS: Insulin NovoLOG Aspart Correctional Sugar Inj SQ SCH ×2 (17:13→21:21)
--- NOTE | 2018-08-17 19:45 | MB ---
cc: Sree Blanc DO DATE: 08/17/2018 REASON FOR CONSULTATION: SVT. HISTORY OF PRESENT ILLNESS: Mariza Lovell is a pleasant 57-year-old female, whom I see in the office and presented due to chest pain while getting dialysis. About custodial through her dialysis, she was noted to have a low blood pressure as well as an elevated heart rate. Due to the chest pain, she was given 2 nitroglycerins, and then when the ambulance arrived, her systolic blood pressure was 70. On arrival to the emergency room, she was noted to be tachycardic, and I spoke with Dr. Wheeler about her most likely being back in AVNRT. She appears to have these episodes of slow AVNRT, and during this, she seems to get hypotensive. She had a previous episode in the hospital last month, and she was electrically cardioverted with adenosine. After speaking with Dr. Wheeler, I asked her to give adenosine, and when I came down to the emergency room after speaking with Dr. Wheeler, the one dose of adenosine put her back into sinus rhythm. She states that she feels better and no longer has any chest pain. Unfortunately, she and her have very little insight to her medical history. I had tried to change her labetalol to metoprolol, and he believes that he picked up the medication and that she had started the medication, but he is unsure. PAST MEDICAL HISTORY: 1. 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 2. COPD. 3. Depression with anxiety. 4. Diabetes mellitus. 5. Gastroparesis. 6. Glaucoma. 7. Gout. 8. Hyperlipidemia. 9. Obesity. 10. Peripheral artery disease. 11. End-stage renal disease, on dialysis Friday, Friday, Friday. 12. Hypertension. 13. Type 2 diabetes mellitus. 14. Partial blindness. PAST SURGICAL HISTORY: 1. AV fistula. 2. Cardiac catheterization (07/10/2018) overall mild coronary artery disease. ALLERGIES: 1. ACETAMINOPHEN. 2. LINEZOLID. 3. PIPERACILLIN. 4. ZOCOR. 5. TAZOBACTAM. 6. OXYCODONE. MEDICATIONS: 1. Promethazine 25 mg b.i.d. as needed. 2. Pepcid 20 mg b.i.d. 3. Levemir 10 units every night. 4. Lasix 80 mg daily. 5. Lipitor 10 mg daily. 6. Zyloprim 100 mg daily. 7. Advair 250/50 b.i.d. 8. Calcium acetate 667 mg t.i.d. 9. Cymbalta 20 mg daily. 10. Midodrine 5 mg t.i.d. 11. Melatonin 5 mg every night as needed. 12. Aspirin 81 mg daily. 13. Metoprolol tartrate 25 mg b.i.d. FAMILY HISTORY: She denies premature coronary artery disease or sudden cardiac within the family. SOCIAL HISTORY: The patient denies tobacco, alcohol, or drug abuse. REVIEW OF SYSTEMS: Fourteen systems were reviewed including osteopathic. Pertinent positives and negatives above. Otherwise negative. PHYSICAL EXAMINATION: VITAL SIGNS: Temperature 98.0, heart rate 85, blood pressure 156/72, respirations 21, pulse oximetry 95% on 2 L. GENERAL: The patient appears well, in no acute distress. Alert, awake, and oriented x3. HEENT: Extraocular muscles intact. Mucous membranes moist. NECK: Supple. No JVD at 45 degrees. No carotid bruits heard bilaterally. Carotid upstroke is brisk in nature. HEART: Regular rate and rhythm. Positive first and second heart sounds with a 1/6 crescendo decrescendo murmur to the right sternal border. LUNGS: Clear to auscultation bilaterally. No wheezes, rales, or rhonchi. ABDOMEN: Soft, nontender, nondistended. No organomegaly noted. EXTREMITIES: No clubbing, cyanosis, or edema. Femoral and distal pulses are intact bilaterally. NEUROLOGIC: No focal deficits. SKIN: Warm, dry, and intact. OSTEOPATHIC: No kyphoscoliosis, lordosis, or paraspinal tender points. LABORATORY DATA: Hemoglobin 9.4, hematocrit 28.9, platelets 230. Potassium 3.9, BUN 37, creatinine 6.07. Troponin less than 0.02. Electrocardiogram (08/17/2018 at 0952): SVT, probable AVNRT at 130 beats per minute, nonspecific ST-T wave changes. Electrocardiogram (08/17/2018 at 1212 after 1 dose of adenosine): Sinus rhythm, nonspecific ST-T wave changes. IMPRESSION: 1. Supraventricular tachycardia which appears to be atrioventricular red reentry tachycardia, status post adenosine converting into normal sinus rhythm. 2. Chest pain, most likely due to supraventricular tachycardia. 3. Previous cardiac catheterization showing mild coronary artery disease. 4. End-stage renal disease on hemodialysis. 5. Supraventricular tachycardia causing mild hypotension. RECOMMENDATIONS: 1. Ms. Lovell appears to have AVNRT, which is relatively at a low rate in the 120s to 140s in general. 2. She has been started on beta-gelnna therapy, and it appears she has been taking it and still having episodes. 3. I have asked Dr. Liz to evaluate her for further consideration of AV red pathway modification. 4. As far as chest pain goes, this is most likely her feeling palpitations from her AVNRT. Previous cardiac catheterization recently showed mild coronary artery disease. 5. Further recommendations will be made based on the hospital course. Thank you for allowing me to see Mariza Lovell. If there are any questions, please do not hesitate to call. DO NEEL Hogue/aracelis , 05:42 PM , 05:59 PM
[2018-08-17] MEDS ORDERED: Melatonin 5 MG Tablet PO PRN (21:00)
[2018-08-17] MEDS: Senna/Docusate Sodium 8.6/50 MG Tablet PO SCH (21:18)
[2018-08-17] MEDS: Famotidine 20 MG Tablet PO SCH (21:18)
[2018-08-17] MEDS: Insulin Detemir Inj 1,000 UNIT/10 ML Vial SQ SCH (21:19)
[2018-08-18] MEDS: Budesonide-Formoterol 160/4.5 MCG 6 GM Inhaler INH SCH ×3 (06:40→21:27)
[2018-08-18 08:08] LABS: Alanine Aminotransferase 13 U/L (10-53); Albumin 3.1 g/dL (3.4-5.0); Anion Gap 9 meq/L (5-15); Aspartate Aminotransferase 16 U/L (15-37); Blood Urea Nitrogen 41 mg/dL (7-18); Calcium 7.9 mg/dL (8.5-10.1); Carbon Dioxide 30.5 meq/L (21.0-32.0); Chloride 100 meq/L (98-107); Glomerular Filtration Rate 7 mL/min (>89); Glucose,Random 73 mg/dL (74-106); Potassium 4.8 meq/L (3.5-5.1); Sodium 139 meq/L (136-145)
[2018-08-18 08:11] LABS: Alkaline Phosphatase 116 U/L (45-117); Total Protein 7.7 g/dL (6.4-8.2)
[2018-08-18 08:22] LABS: Baso % (Auto) 0.6 % (0.0-2.0); Eos # (Auto) 0.1 th/mm3 (0.0-0.4); Eos % (Auto) 2.3 % (0.0-4.0); Hematocrit 29.4 % (35.0-46.0); Hemoglobin 9.5 gm/dL (11.6-15.3); Lymph # (Auto) 1.2 th/mm3 (1.0-4.8); Lymph % (Auto) 19.6 % (9.0-44.0); Mean Corpuscular HGB Conc 32.1 % (32.0-36.0); Mean Corpuscular Hemoglobin 31.1 pg (27.0-34.0); Mean Corpuscular Volume 96.9 fL (80.0-100.0); Mean Platelet Volume 9.4 fL (7.0-11.0); Mono # (Auto) 0.7 th/mm3 (0.0-0.9); Mono % (Auto) 11.1 % (0.0-8.0); Neut # (Auto) 4.1 th/mm3 (1.8-7.7); Neut % (Auto) 66.4 % (16.0-70.0); Platelet Count 208 th/mm3 (150-450); Red Blood Count 3.03 mil/mm3 (4.00-5.30); White Blood Count 6.2 th/mm3 (4.0-11.0)
[2018-08-18] MEDS: Famotidine 20 MG Tablet PO SCH ×2 (08:31→21:21)
[2018-08-18] MEDS: Furosemide 80 MG Tablet PO SCH (08:31)
[2018-08-18] MEDS: Calcium Acetate 667 MG Capsule PO SCH ×3 (08:32→17:17)
[2018-08-18] MEDS: Allopurinol 100 MG Tablet PO SCH (08:32)
[2018-08-18] MEDS: Metoprolol Tartrate 25 MG Tablet PO SCH ×2 (08:32→21:21)
[2018-08-18] MEDS: Senna/Docusate Sodium 8.6/50 MG Tablet PO SCH ×2 (08:32→21:21)
[2018-08-18] MEDS: Insulin NovoLOG Aspart Correctional Sugar Inj SQ SCH ×4 (08:37→21:23)
--- NOTE | 2018-08-18 11:00 | P.PN ---
Subjective Interval history: Patient doing well overnight. Patient denies chest pain and further episodes of palpitations. Patient is tolerating p.o., voiding/stooling well. Physical Exam Vital signs: Vital Signs 08/17/18 11:25 08/17/18 12:06 08/17/18 16:00 Temperature 97.8 F Pulse Rate 128 H 85 78 Respiratory Rate 21 21 18 Blood Pressure 112/67 156/72 H 190/87 H Pulse Oximetry 96 95 93 L 08/17/18 20:00 08/17/18 21:35 08/18/18 00:00 Temperature 98.1 F 99.6 F Pulse Rate 75 76 73 Respiratory Rate 20 20 Blood Pressure 139/74 141/65 H Pulse Oximetry 92 L 92 L 08/18/18 04:00 08/18/18 05:22 08/18/18 08:00 Temperature 98.1 F 98.0 F Pulse Rate 71 71 73 Respiratory Rate 18 18 Blood Pressure 142/76 H 158/76 H Pulse Oximetry 94 L 94 L Intake & Output 08/17/18 08/18/18 08/18/18 18:59 06:59 18:59 Intake Total 60 / 60 Output Total 1999 0 / 0 Balance -1999 60 / 60 Weight 90.718 kg 97.6 kg Intake: Oral 60 / 60 Output: Urine 0 / 0 Hemodialysis Amount 1999 Narrative: GENERAL: Well-nourished -[place]ian female, in no acute distress, sitting comfortably in bed. SKIN: Warm and dry. Left upper extremity fistula. HEENT: Normocephalic. Atraumatic. No scleral icterus. No injection or drainage. PERRLA, MOM. NECK: Supple, trachea midline. No JVD or lymphadenopathy. CARDIOVASCULAR: Regular rate and rhythm, S1 and S2, 1/6 KATHIE over pulmonic region RESPIRATORY: Breath sounds equal bilaterally. No accessory muscle use. GASTROINTESTINAL: Abdomen soft, non-tender, nondistended. MUSCULOSKELETAL: No cyanosis, or edema. BACK: Nontender without obvious deformity. No CVA tenderness. NEURO: AAO x3, no focal deficits, motor strength 5/5 x 4, speech clear. Results - Labs CBC & Chem 7: 08/18/18 06:48 08/18/18 06:48 Laboratory Results - last 24 hr 08/17/18 08/18/18 08/18/18 17:13 06:48 06:48 WBC 6.2 RBC 3.03 L Hgb 9.5 L Hct 29.4 L MCV 96.9 MCH 31.1 MCHC 32.1 RDW 19.0 H Plt Count 208 MPV 9.4 Prelim Diff (Auto) Slide review pending Neut % (Auto) 66.4 Lymph % (Auto) 19.6 [place] % (Auto) 11.1 H Eos % (Auto) 2.3 Baso % (Auto) 0.6 Neut # (Auto) 4.1 Lymph # (Auto) 1.2 [place] # (Auto) 0.7 Eos # (Auto) 0.1 Baso # (Auto) 0.0 WBC Differential . Diff Scan Auto diff confirmed Differential Comment . Sodium 139 Potassium 4.8 D Chloride 100 Carbon Dioxide 30.5 Anion Gap 9 BUN 41 H Creatinine 7.05 H Estimated GFR 7 L POC Glucose 112 H Random Glucose 73 L Calcium 7.9 L Total Bilirubin 0.4 AST 16 ALT 13 Alkaline Phosphatase 116 Total Protein 7.7 Albumin 3.1 L 08/18/18 08:36 WBC RBC Hgb Hct MCV MCH MCHC RDW Plt Count MPV Prelim Diff (Auto) Neut % (Auto) Lymph % (Auto) [place] % (Auto) Eos % (Auto) Baso % (Auto) Neut # (Auto) Lymph # (Auto) [place] # (Auto) Eos # (Auto) Baso # (Auto) WBC Differential Diff Scan Differential Comment Sodium Potassium Chloride Carbon Dioxide Anion Gap BUN Creatinine Estimated GFR POC Glucose 71 Random Glucose Calcium Total Bilirubin AST ALT Alkaline Phosphatase Total Protein Albumin Assessment and Plan - Assessment (1) Tobacco abuse Code(s): Z72.0 - Tobacco use Status: Chronic (2) Chest pain Code(s): R07.9 - Chest pain, unspecified Status: Acute (3) Hypertension Code(s): I10 - Essential (primary) hypertension Status: Chronic (4) AVNRT (AV red re-entry tachycardia) Code(s): I47.1 - Supraventricular tachycardia Status: Acute (5) Anemia of renal disease Code(s): D63.1 - Anemia in chronic kidney disease Status: Chronic - Plan 57-year-old F with PMHx of Insulin Dependent Diabetes Mellitus, legally blind, ESRD on hemodialysis admitted due to chest pain and palpitations found to have AVNRT s/p adenosine in the ER, now stable in NSR, HD#2 1. Chest Pain/AVNRT, resolved s/p Adenosine in the ER Now is normal sinus rhythm, a symptom of Cardiology was consulted, appreciate assistance with management Cont. Metoprolol and Midodrine Monitor on telemetry 2. ESRD on hemodialysis M/W/F Consult Nephrology, appreciate assist with management Cr 7.05 today from 6.07 F/U BMP in AM Avoid nephrotoxic meds Monitor electrolytes and replace as necessary, continue PhosLo 3. Insulin-dependent Diabetes Mellitus BS stable Continue Detemir 10U QHS and sliding scale insulin, monitor blood sugar 4. Legal blind: Noted. 5. COPD Cont. Budesonide/Formoterol BID 6. Gout Continue Allopurinol for prophylaxis 7. HTN Cont. Metoprolol, Lasix, and Aspirin 8. HLD Cont. Statin 9. Anemia of Chronic Disease Will obtain iron panel Hemoglobin 9.5 today from 9.4 Follow-up CBC in AM 10. DVT/GI prophylaxis: SCD's/Lovenox/Pepcid 11. Dispo: F/U cards and nephro recommendations Code Status: full Discussed Condition With: patient, RN (2) Chest pain Qualifiers: Chest pain type: unspecified Qualified Code(s): R07.9 - Chest pain, unspecified
--- NOTE | 2018-08-18 12:47 | P.PNNP ---
Subjective Interval history: patient was seen and examined. She is currently chest pain free. Doing well. Cardiology seen the patient, Dr. Liz to see. Physical Exam Vital signs: Vital Signs 08/17/18 16:00 08/17/18 20:00 08/17/18 21:35 Temperature 97.8 F 98.1 F Pulse Rate 78 75 76 Respiratory Rate 18 20 Blood Pressure 190/87 H 139/74 Pulse Oximetry 93 L 92 L 08/18/18 00:00 08/18/18 04:00 08/18/18 05:22 Temperature 99.6 F 98.1 F Pulse Rate 73 71 71 Respiratory Rate 20 18 Blood Pressure 141/65 H 142/76 H Pulse Oximetry 92 L 94 L 08/18/18 08:00 08/18/18 12:30 Temperature 98.0 F Pulse Rate 73 Respiratory Rate 18 Blood Pressure 158/76 H Pulse Oximetry 94 L 100 Intake & Output 08/17/18 08/18/18 08/18/18 18:59 06:59 18:59 Intake Total 60 / 60 Output Total 1999 0 / 0 Balance -1999 60 / 60 Weight 90.718 kg 97.6 kg Intake: Oral 60 / 60 Output: Urine 0 / 0 Hemodialysis Amount 1999 Narrative: GENERAL: Well-nourished -[place] female, in no acute distress, SKIN: Warm and dry. Left upper extremity fistula. HEENT: patient is legally blind. NECK: Supple, trachea midline. No JVD or lymphadenopathy. CARDIOVASCULAR: Regular rate and rhythm, S1 and S2, 1/6 KATHIE over pulmonic region RESPIRATORY: Breath sounds equal bilaterally. No accessory muscle use. GASTROINTESTINAL: Abdomen soft, non-tender, nondistended. MUSCULOSKELETAL: No cyanosis, or edema. Assessment and Plan - Assessment (1) ESRD (end stage renal disease) on dialysis Code(s): N18.6 - End stage renal disease; Z99.2 - Dependence on renal dialysis Status: Acute Plan: Dialysis will be MWF. Monitor fluid and electrolytes. Avoid Gadolinium. (2) Chest pain Code(s): R07.9 - Chest pain, unspecified Status: Acute Qualifiers: Chest pain type: unspecified Qualified Code(s): R07.9 - Chest pain, unspecified Plan: Could have been related to tachycardia. Resolved. She had a negative cardiac catheterization last month. (3) AVNRT (AV red re-entry tachycardia) Code(s): I47.1 - Supraventricular tachycardia Status: Acute Plan: converted to NSR. Cardiology on the case. Note was reviewed. (4) Anemia of renal disease Code(s): D63.1 - Anemia in chronic kidney disease Status: Chronic Plan: Epogen with dialysis. (5) Hypertension Code(s): I10 - Essential (primary) hypertension Status: Chronic Plan: monitor BP. It was low in dialysis unit, currently more acceptable. (6) Metabolic bone disease Code(s): E88.9 - Metabolic disorder, unspecified; M90.80 - Osteopathy in diseases classified elsewhere, unspecified site Status: Acute Plan: monitor phosphorus intermittently. Continue PhosLo with meals.
[2018-08-18] MEDS: Enoxaparin Inj 30 MG/0.3 ML Syringe SQ SCH (12:59)
--- NOTE | 2018-08-18 16:09 | ECG ---
Date Performed: 08/17/2018 Time Performed: 09:52:44 PTAGE: 57 years EKG: Supraventricular tachycardia BORDERLINE LEFT AXIS DEVIATION NONSPECIFIC ST & T-WAVE ABNORMA LITY ABNORMAL RHYTHM ECG PREVIOUS TRACING : 07/11/2018 10.00 DOCTOR: Ryan Melo Interpretating Date/Time 08/18/2018 16:09:00
--- NOTE | 2018-08-18 16:11 | ECG ---
Date Performed: 08/17/2018 Time Performed: 12:12:28 PTAGE: 57 years EKG: Sinus rhythm NONSPECIFIC T-WAVE ABNORMALITY BORDERLINE ECG PREVIOUS TRACING : 08/17/2018 09.52 Since the previous tracing, no significant change noted DOCTOR: Ryan Melo Interpretating Date/Time 08/18/2018 16:09:27
[2018-08-18] MEDS ORDERED: Sodium Chlor 0.9% Inj 500 ML IV.CONT SCH ×2 (21:00)
--- NOTE | 2018-08-18 21:11 | MB ---
cc: Anjelica Liz MD DATE: 08/18/2018 REASON FOR CONSULTATION: Supraventricular tachyarrhythmia. HISTORY OF PRESENT ILLNESS: Ms. Morales is a 57-year-old female with a history of tachyarrhythmia, diabetes, high blood pressure, end-stage renal disease, on hemodialysis, admitted from the emergency room due to narrow complex tachyarrhythmia. The patient was previously seen by Dr. Blanc. I was consulted for evaluation and management. The chart was reviewed. The patient was evaluated. ALLERGIES: MULTIPLE. ACETAMINOPHEN, LINEZOLID, PIPERACILLIN, ZOCOR, TAZOBACTAM, OXYCODONE. SOCIAL HISTORY: Negative for smoking or drinking. FAMILY HISTORY: Noncontributory to her current medical condition. MEDICATIONS: She is on: 1. Promethazine. 2. Pepcid. 3. Levemir. 4. Lasix. 5. Lipitor. 6. Zyloprim. 7. Advair. 8. Cymbalta. 9. Midodrine. 10. Melatonin. 11. Aspirin. 12. Metoprolol. 13. Lovenox subcutaneous. REVIEW OF SYSTEMS: Currently, she refers no chest pain, no palpitations, no fever. PHYSICAL EXAMINATION: GENERAL: Alert, fully oriented. VITAL SIGNS: Blood pressure 126/95, pulse 70, respiratory rate 18. LUNGS: Ventilated. CARDIOVASCULAR: S1, S2. No gallop. No murmur. ABDOMEN: Soft, obese. No mass. No bruits. EXTREMITIES: No edema. Left arm with AV fistula. ELECTROCARDIOGRAM: Sinus rhythm. On admission, the patient was in supraventricular tachyarrhythmia with a short VA time apparently. LABORATORY DATA: Hemoglobin 9.5, white blood cells 6.2. INR 1.0. Potassium 4.8, creatinine 7.05. ALT 13, AST 16. Troponin less than 0.02. ASSESSMENT AND RECOMMENDATIONS: Ms. Morales is currently stable. She has recurrent episodes of tachyarrhythmia and very symptomatic. I had a long conversation with her. Electrophysiology study and ablation discussed. The risks, the nature and the benefits of the procedure were clearly stated to her. Risks included pneumothorax, cardiac perforation, stroke and even . The patient understood and agreed to proceed. I will keep her n.p.o. after breakfast and the procedure will be set up for tomorrow afternoon. MD Eric Soto , 08:16 PM , 08:25 PM
[2018-08-18] MEDS: Insulin Detemir Inj 1,000 UNIT/10 ML Vial SQ SCH (21:22)
--- NOTE | 2018-08-18 22:00 | P.PNCA ---
Subjective Interval history: No events overnight No further tachyarrhythmias Medications and Allergies Active Medications: Active Medications Acetaminophen (Tylenol) 650 mg PO UNSCH PRN PRN Reason: SEE LABEL COMMENTS Al Hydroxide/Mg Hydroxide (Milk Of Estephania Piedra) 30 ml PO Q12H PRN PRN Reason: Mild Constipation Allopurinol (Zyloprim) 100 mg PO DAILY [facility] Last Admin: 08/18/18 08:32 Dose: 100 mg Aspirin (Ecotrin) 81 mg PO DAILY [facility] Last Admin: 08/18/18 08:31 Dose: 81 mg Atorvastatin Calcium (Lipitor) 10 mg PO DAILY [facility] Last Admin: 08/18/18 08:31 Dose: 10 mg Bisacodyl (Dulcolax Supp) 10 mg RECTAL DAILY PRN PRN Reason: SEVERE CONSITIPATION Budesonide/Formoterol Fumarate (Symbicort 160/4.5 Mcg Inh) 2 puff INH BID [facility] Last Admin: 08/18/18 21:27 Dose: 2 puff Calcium Acetate (Phoslo) 667 mg PO TID [facility] Last Admin: 08/18/18 17:17 Dose: 667 mg Clonidine HCl (Catapres) 0.1 mg PO UNSCH PRN PRN Reason: SEE LABEL COMMENTS Dextrose (D50w Vial) 50 ml IV.PUSH UNSCH PRN PRN Reason: PER HYPOGLYCEMIA PROTOCOL Diphenhydramine HCl (Benadryl) 25 mg PO UNSCH PRN PRN Reason: SEE LABEL COMMENTS Enoxaparin Sodium (Lovenox Inj) 30 mg SQ Q24H [facility] Last Admin: 08/18/18 12:59 Dose: 30 mg Epoetin Francisco (Epogen Inj) 10,000 unit IV.PUSH UNSCH PRN PRN Reason: SEE LABEL COMMENTS Famotidine (Pepcid) 10 mg PO BID [facility] Last Admin: 08/18/18 21:21 Dose: 10 mg Furosemide (Lasix) 80 mg PO DAILY [facility] Last Admin: 08/18/18 08:31 Dose: 80 mg Gelatin (Gelfoam 12 Mm/7 Mm Topical) 1 foam TOPICAL PRN PRN PRN Reason: help stop bleeding from site Gentamicin Sulfate (Gentamicin Inj) 20 mg OTHER WITH DIALYSIS PRN PRN Reason: Dwell Gentamycin Lock Glucagon (Glucagon Inj) 1 mg OTHER PRN PRN PRN Reason: for Hypoglycemia Protocol Heparin Sodium (Porcine) (Heparin Inj) 8,000 units OTHER WITH DIALYSIS PRN PRN Reason: for machine prime Heparin Sodium (Porcine) (Heparin Inj) 1,000 units OTHER WITH DIALYSIS PRN PRN Reason: Dwell Heparin to Fill Catheter Albumin Human (Flexbumin 25% Inj) 100 mls @ 60 mls/hr IV.SIG WITH DIALYSIS PRN PRN Reason: hypotension / volume replace Sodium Chloride (Ns Inj) 1,000 mls @ 0 mls/hr OTHER .Q0M PRN PRN Reason: for prime and rinse back Sodium Chloride (Ns Inj) 1,000 mls @ 200 mls/hr OTHER .Q5H PRN PRN Reason: for dialyzer flush PRN Sodium Chloride (Ns Inj) 1,000 mls @ 0 mls/hr IV.CONT .Q0M PRN PRN Reason: hypotension / volume replace Sodium Chloride (Ns Inj) 500 mls @ 30 mls/hr IV.CONT .[id number] [facility] Stop: 08/19/18 13:39 Sodium Chloride (Ns Inj) 500 mls @ 30 mls/hr IV.CONT .[id number] [facility] Stop: 08/19/18 13:39 Insulin Aspart (Novolog Insulin Correctional Sugar Inj) 0 unit SQ ACHS [facility]; Protocol Last Admin: 08/18/18 21:23 Dose: Not Given Insulin Detemir (Levemir Inj) 10 unit SQ HS [facility] Last Admin: 08/18/18 21:22 Dose: 10 unit Lactulose (Lactulose Liq) 30 ml PO DAILY PRN PRN Reason: SEVERE CONSITIPATION Mannitol (Mannitol Inj) 12.5 gm IV.PUSH UNSCH PRN PRN Reason: hypotension / volume replace Melatonin (Melatonin) 5 mg PO HS PRN PRN Reason: Insomnia Metoprolol Tartrate (Lopressor) 25 mg PO BID [facility] Last Admin: 08/18/18 21:21 Dose: 25 mg Midodrine (Proamatine) 5 mg PO TID [facility] Last Admin: 08/18/18 17:18 Dose: 5 mg Nitroglycerin (Nitrostat Sl) 0.4 mg SL Q5M PRN PRN Reason: CHEST PAIN Ondansetron HCl (Zofran Inj) 4 mg IV.PUSH UNSCH PRN PRN Reason: NAUSEA OR VOMITING Pt Own Med - ( Brimonidine-Timolol [Brimonidine-Timolol ] 1 Drp) 0 each EACH EYE Q12H [facility] Promethazine HCl (Phenergan) 25 mg PO BID PRN PRN Reason: Nausea Senna/Docusate Sodium (Maya-Colace) 1 tab PO BID [facility] Last Admin: 08/18/18 21:21 Dose: 1 tab Sennosides (Senokot) 17.2 mg PO Q12H PRN PRN Reason: Moderate Constipation Sodium Chloride (Ns Flush) 2 ml IV.FLUSH UNSCH PRN PRN Reason: FLUSH AFTER USING IV ACCESS Last Admin: 08/18/18 21:27 Dose: 2 ml Sodium Chloride (Ns Flush) 5 ml IV.FLUSH PRN PRN PRN Reason: flush each lumen during HD Allergies Allergy/AdvReac Type Severity Reaction Status Date / Time acetaminophen Allergy Severe VOMITING Verified 08/17/18 09:44 linezolid Allergy Severe VOMITING Verified 08/17/18 09:44 piperacillin Allergy Severe VOMITING Verified 08/17/18 09:44 simvastatin Allergy Severe VOMITING Verified 08/17/18 09:44 tazobactam Allergy Severe VOMITING Verified 08/17/18 09:44 oxycodone AdvReac Severe VOMITING Verified 08/17/18 09:44 Home Medications Medication Instructions Recorded Confirmed Type B complex with C#20-folic acid 1 cap PO DAILY 05/19/18 08/17/18 History [Renal Caps] allopurinol [Zyloprim] 100 mg PO DAILY 05/19/18 08/17/18 History atorvastatin [Lipitor] 10 mg PO DAILY 05/19/18 08/17/18 History bisacodyl [Dulcolax (bisacodyl)] 5 mg PO BID 05/19/18 08/17/18 History brimonidine-timolol 1 drp EACH EYE Q12H 05/19/18 08/17/18 History calcium acetate 667 mg PO TID 05/19/18 08/17/18 History duloxetine [Cymbalta] 20 mg PO DAILY 05/19/18 08/17/18 History famotidine [Pepcid] 20 mg PO BID 05/19/18 08/17/18 History fluticasone-salmeterol [Advair 1 inh INHALATION BID 05/19/18 08/17/18 History Diskus] furosemide [Lasix] 80 mg PO DAILY 05/19/18 08/17/18 History insulin detemir U-100 [Levemir 10 unit SUB-Q HS 05/19/18 08/17/18 History U-100 Insulin] promethazine 25 mg PO BID PRN 05/19/18 08/17/18 History sennosides-docusate sodium [Senna 1 tab PO DAILY 05/19/18 08/17/18 History Plus] melatonin 5 mg PO HS PRN 07/10/18 08/17/18 History Physical Exam Vital signs: Vital Signs 08/18/18 00:00 08/18/18 04:00 08/18/18 05:22 Temperature 99.6 F 98.1 F Pulse Rate 73 71 71 Respiratory Rate 20 18 Blood Pressure 141/65 H 142/76 H Pulse Oximetry 92 L 94 L 08/18/18 08:00 08/18/18 12:00 08/18/18 12:30 Temperature 98.0 F 97.8 F Pulse Rate 73 70 Respiratory Rate 18 18 Blood Pressure 158/76 H 126/95 H Pulse Oximetry 94 L 96 100 08/18/18 16:00 08/18/18 20:00 Temperature 97.8 F 97.4 F L Pulse Rate 75 83 Respiratory Rate 18 19 Blood Pressure 168/76 H 136/74 Pulse Oximetry 95 95 Intake & Output 08/18/18 08/18/18 08/19/18 06:59 18:59 06:59 Intake Total 60 / 60 472 / 472 Output Total 0 / 0 Balance 60 / 60 472 / 472 Weight 97.6 kg Intake: Oral 60 / 60 472 / 472 Output: Urine 0 / 0 Other: # Bowel Movements 1 Narrative: GENERAL: Well-nourished -[place] female, in no acute distress, SKIN: Warm and dry. Left upper extremity fistula. HEENT: patient is legally blind. NECK: Supple, trachea midline. No JVD or lymphadenopathy. CARDIOVASCULAR: Regular rate and rhythm, S1 and S2, 1/6 KATHIE over pulmonic region RESPIRATORY: Breath sounds equal bilaterally. No accessory muscle use. GASTROINTESTINAL: Abdomen soft, non-tender, nondistended. MUSCULOSKELETAL: No cyanosis, or edema. Results 08/18/18 06:48 08/18/18 06:48 Cardiac Enzymes 08/17/18 08/18/18 Range/Units 09:55 06:48 AST 22 16 (15-37) U/L Troponin I Less than 0.02 L (0.02-0.05) ng/mL Coagulation 08/17/18 Range/Units 09:55 PT 10.5 (9.8-11.6) sec APTT 28.2 (24.3-30.1) sec CBC 08/17/18 08/18/18 Range/Units 09:55 06:48 WBC 8.3 6.2 (4.0-11.0) th/mm3 RBC 3.00 L 3.03 L (4.00-5.30) mil/mm3 Hgb 9.4 L 9.5 L (11.6-15.3) gm/dL Hct 28.9 L 29.4 L (35.0-46.0) % Plt Count 230 208 (150-450) th/mm3 Neut # (Auto) 6.8 4.1 (1.8-7.7) th/mm3 Lymph # (Auto) 0.9 L 1.2 (1.0-4.8) th/mm3 [place] # (Auto) 0.4 0.7 (0.0-0.9) th/mm3 Eos # (Auto) 0.2 0.1 (0.0-0.4) th/mm3 Baso # (Auto) 0.0 0.0 (0.0-0.2) th/mm3 Comprehensive Metabolic Panel 08/17/18 08/18/18 Range/Units 09:55 06:48 Sodium 138 139 (136-145) meq/L Potassium 3.9 4.8 D (3.5-5.1) meq/L Chloride 99 100 (98-107) meq/L Carbon Dioxide 30.0 30.5 (21.0-32.0) meq/L BUN 37 H 41 H (7-18) mg/dL Creatinine 6.07 H 7.05 H (0.50-1.00) mg/dL Calcium 7.8 L 7.9 L (8.5-10.1) mg/dL AST 22 16 (15-37) U/L ALT 17 13 (10-53) U/L Alkaline Phosphatase 132 H 116 (45-117) U/L Total Protein 8.2 7.7 (6.4-8.2) g/dL Albumin 3.3 L 3.1 L (3.4-5.0) g/dL Intake and Output 08/18/18 08/18/18 08/18/18 06:59 14:59 22:59 Intake Total 472 / 472 Output Total 0 / 0 Balance 472 / 472 Intake: Oral 472 / 472 Output: Urine 0 / 0 Other: # Bowel Movements 1 Weight 97.6 kg - Imaging and Cardiology Imaging: Impressions Chest X-Ray 08/17/18 09:49 CONCLUSION: Moderate cardiomegaly without significant failure. Bibasilar parenchymal changes worse on the left. Assessment and Plan - Assessment (1) Tobacco abuse Code(s): Z72.0 - Tobacco use Status: Chronic (2) ESRD (end stage renal disease) on dialysis Code(s): N18.6 - End stage renal disease; Z99.2 - Dependence on renal dialysis Status: Acute (3) Chest pain Code(s): R07.9 - Chest pain, unspecified Status: Acute (4) Hypertension Code(s): I10 - Essential (primary) hypertension Status: Chronic (5) AVNRT (AV red re-entry tachycardia) Code(s): I47.1 - Supraventricular tachycardia Status: Acute - Plan 1) SVT Appears to have gone back into AVNRT leading her to the ER s/p Adenosine 6mg x1 converting her Spoke with Dr. Liz, will plan on EP study and possible ablation tomorrow afternoon 2) Chest pain Previous cath showing mild disease Most likely secondary to AVNRT 3) ESRD on HD (3) Chest pain Qualifiers: Chest pain type: unspecified Qualified Code(s): R07.9 - Chest pain, unspecified
[2018-08-19] MEDS: Insulin NovoLOG Aspart Correctional Sugar Inj SQ SCH ×4 (08:07→22:21)
--- NOTE | 2018-08-19 09:50 | P.PNNP ---
Subjective Interval history: patient was seen and examined during dialysis. EP study with possible ablation is scheduled for later today. On 2K, UF goal is about 2 liters. Tolerating it well. AVF in the left arm is cannulated. BFR is 350ml/min. Physical Exam Vital signs: Vital Signs 08/18/18 12:00 08/18/18 12:30 08/18/18 16:00 Temperature 97.8 F 97.8 F Pulse Rate 70 75 Respiratory Rate 18 18 Blood Pressure 126/95 H 168/76 H Pulse Oximetry 96 100 95 08/18/18 20:00 08/19/18 00:00 08/19/18 03:18 Temperature 97.4 F L 97.8 F 98.3 F Pulse Rate 78 68 72 Respiratory Rate 19 20 20 Blood Pressure 136/74 162/70 H 176/91 H Pulse Oximetry 95 90 L 96 08/19/18 04:00 08/19/18 08:00 Temperature 97.5 F L Pulse Rate 70 73 Respiratory Rate 20 Blood Pressure 189/88 H Pulse Oximetry 98 Intake & Output 08/18/18 08/19/18 08/19/18 18:59 06:59 18:59 Intake Total 472 / 472 Balance 472 / 472 Weight 99.3 kg Intake: Oral 472 / 472 Other: # Bowel Movements 1 Narrative: GENERAL: Well-nourished -[place] female, in no acute distress, SKIN: Warm and dry. Left upper extremity fistula. HEENT: patient is legally blind. NECK: Supple, No JVD or lymphadenopathy. CARDIOVASCULAR: Regular rate and rhythm, S1 and S2, systolic murmur. RESPIRATORY: Breath sounds equal bilaterally. No accessory muscle use. GASTROINTESTINAL: Abdomen soft, non-tender, nondistended. MUSCULOSKELETAL: No cyanosis, or edema. Assessment and Plan - Assessment (1) ESRD (end stage renal disease) on dialysis Code(s): N18.6 - End stage renal disease; Z99.2 - Dependence on renal dialysis Status: Acute Plan: Dialysis will be MWF. Seen during dialysis today. Monitor fluid and electrolytes. Avoid Gadolinium. (2) Chest pain Code(s): R07.9 - Chest pain, unspecified Status: Acute Qualifiers: Chest pain type: unspecified Qualified Code(s): R07.9 - Chest pain, unspecified Plan: Could have been related to tachycardia. Resolved. She had a negative cardiac catheterization last month. (3) AVNRT (AV red re-entry tachycardia) Code(s): I47.1 - Supraventricular tachycardia Status: Acute Plan: converted to NSR. Cardiology on the case. EP study is planned. (4) Anemia of renal disease Code(s): D63.1 - Anemia in chronic kidney disease Status: Chronic Plan: Epogen with dialysis. (5) Hypertension Code(s): I10 - Essential (primary) hypertension Status: Chronic Plan: monitor BP. BP is high today, monitor after dialysis and fluid removal. (6) Metabolic bone disease Code(s): E88.9 - Metabolic disorder, unspecified; M90.80 - Osteopathy in diseases classified elsewhere, unspecified site Status: Acute Plan: monitor phosphorus intermittently. Continue PhosLo with meals. - Plan Epogen with dialysis.
[2018-08-19 10:00] LABS: Baso % (Auto) 0.7 % (0.0-2.0); Eos # (Auto) 0.3 th/mm3 (0.0-0.4); Eos % (Auto) 4.6 % (0.0-4.0); Hematocrit 28.8 % (35.0-46.0); Hemoglobin 9.4 gm/dL (11.6-15.3); Lymph # (Auto) 1.2 th/mm3 (1.0-4.8); Lymph % (Auto) 18.3 % (9.0-44.0); Mean Corpuscular HGB Conc 32.6 % (32.0-36.0); Mean Corpuscular Hemoglobin 31.5 pg (27.0-34.0); Mean Corpuscular Volume 96.7 fL (80.0-100.0); Mean Platelet Volume 9.7 fL (7.0-11.0); Mono # (Auto) 0.6 th/mm3 (0.0-0.9); Mono % (Auto) 8.9 % (0.0-8.0); Neut # (Auto) 4.5 th/mm3 (1.8-7.7); Neut % (Auto) 67.5 % (16.0-70.0); Platelet Count 227 th/mm3 (150-450); Red Blood Count 2.97 mil/mm3 (4.00-5.30); Red Cell Distribution Width 18.4 % (11.6-17.2); White Blood Count 6.7 th/mm3 (4.0-11.0)
[2018-08-19 10:24] LABS: % Iron Saturation 25.1 % (20-50); Alanine Aminotransferase 17 U/L (10-53); Albumin 3.2 g/dL (3.4-5.0); Alkaline Phosphatase 116 U/L (45-117); Anion Gap 10 meq/L (5-15); Aspartate Aminotransferase 8 U/L (15-37); Blood Urea Nitrogen 61 mg/dL (7-18); Calcium 8.7 mg/dL (8.5-10.1); Carbon Dioxide 32.4 meq/L (21.0-32.0); Chloride 98 meq/L (98-107); Glomerular Filtration Rate 5 mL/min (>89); Glucose,Random 71 mg/dL (74-106); Iron 39 mcg/dL (50-170); Magnesium 2.5 mg/dL (1.5-2.5); Sodium 140 meq/L (136-145); Total Iron Binding Capacity 155 mcg/dL (250-450); Total Protein 7.9 g/dL (6.4-8.2)
[2018-08-19] MEDS: Calcium Acetate 667 MG Capsule PO SCH ×3 (12:57→18:52)
[2018-08-19] MEDS: Famotidine 20 MG Tablet PO SCH ×2 (13:03→21:52)
[2018-08-19] MEDS: Metoprolol Tartrate 25 MG Tablet PO SCH (13:04)
[2018-08-19] MEDS: Allopurinol 100 MG Tablet PO SCH (13:04)
[2018-08-19] MEDS: Furosemide 80 MG Tablet PO SCH (13:04)
[2018-08-19] MEDS: Budesonide-Formoterol 160/4.5 MCG 6 GM Inhaler INH SCH ×2 (13:05→22:21)
[2018-08-19] MEDS: Senna/Docusate Sodium 8.6/50 MG Tablet PO SCH ×2 (13:07→21:54)
--- NOTE | 2018-08-19 15:59 | P.PN ---
Subjective Interval history: Patient doing well overnight. Patient has been n.p.o. since midnight for EP study today and possible ablation, voiding/stooling well. No overnight concerns per RN. Physical Exam Vital signs: Vital Signs 08/18/18 16:00 08/18/18 20:00 08/19/18 00:00 Temperature 97.8 F 97.4 F L 97.8 F Pulse Rate 75 78 68 Respiratory Rate 18 19 20 Blood Pressure 168/76 H 136/74 162/70 H Pulse Oximetry 95 95 90 L 08/19/18 03:18 08/19/18 04:00 08/19/18 08:00 Temperature 98.3 F 97.5 F L Pulse Rate 72 70 73 Respiratory Rate 20 20 Blood Pressure 176/91 H 189/88 H Pulse Oximetry 96 98 08/19/18 12:00 08/19/18 12:50 08/19/18 14:31 Temperature 97.5 F L Pulse Rate 73 73 Respiratory Rate 18 Blood Pressure 193/83 H Pulse Oximetry 91 L 95 Intake & Output 08/18/18 08/19/18 08/19/18 18:59 06:59 18:59 Intake Total 472 / 472 Output Total 1999 Balance 472 / 472 -1999 Weight 99.3 kg Intake: Oral 472 / 472 Output: Hemodialysis Amount 1999 Other: # Bowel Movements 1 Narrative: GENERAL: Well-nourished -[place] female, in no acute distress, sitting comfortably in bed, patient is legally blind SKIN: Warm and dry. Left upper extremity fistula. HEENT: Normocephalic. Atraumatic. No scleral icterus. No injection or drainage. PERRLA, MOM. NECK: Supple, trachea midline. No JVD or lymphadenopathy. CARDIOVASCULAR: Regular rate and rhythm, S1 and S2, 1/6 KATHIE over pulmonic region RESPIRATORY: Breath sounds equal bilaterally. No accessory muscle use. GASTROINTESTINAL: Abdomen soft, non-tender, nondistended. MUSCULOSKELETAL: No cyanosis, or edema. BACK: Nontender without obvious deformity. No CVA tenderness. NEURO: AAO x3, no focal deficits, motor strength 5/5 x 4, speech clear. Results - Labs CBC & Chem 7: 08/19/18 07:45 08/19/18 07:45 Laboratory Results - last 24 hr 08/19/18 08/19/18 08/19/18 05:31 07:45 07:45 WBC 6.7 RBC 2.97 L Hgb 9.4 L Hct 28.8 L MCV 96.7 MCH 31.5 MCHC 32.6 RDW 18.4 H Plt Count 227 MPV 9.7 Neut % (Auto) 67.5 Lymph % (Auto) 18.3 [place] % (Auto) 8.9 H Eos % (Auto) 4.6 H Baso % (Auto) 0.7 Neut # (Auto) 4.5 Lymph # (Auto) 1.2 [place] # (Auto) 0.6 Eos # (Auto) 0.3 Baso # (Auto) 0.0 WBC Differential . Differential Comment Auto diff final Sodium 140 Potassium 5.0 Chloride 98 Carbon Dioxide 32.4 H Anion Gap 10 BUN 61 H Creatinine 9.03 H Estimated GFR 5 L POC Glucose 92 Random Glucose 71 L Calcium 8.7 D Phosphorus 5.0 H Magnesium 2.5 Iron 39 L TIBC 155 L % Saturation 25.1 Total Bilirubin 0.5 AST 8 L ALT 17 Alkaline Phosphatase 116 Total Protein 7.9 Albumin 3.2 L 08/19/18 08/19/18 07:50 11:41 WBC RBC Hgb Hct MCV MCH MCHC RDW Plt Count MPV Neut % (Auto) Lymph % (Auto) [place] % (Auto) Eos % (Auto) Baso % (Auto) Neut # (Auto) Lymph # (Auto) [place] # (Auto) Eos # (Auto) Baso # (Auto) WBC Differential Differential Comment Sodium Potassium Chloride Carbon Dioxide Anion Gap BUN Creatinine Estimated GFR POC Glucose 84 83 Random Glucose Calcium Phosphorus Magnesium Iron TIBC % Saturation Total Bilirubin AST ALT Alkaline Phosphatase Total Protein Albumin Assessment and Plan - Assessment (1) Tobacco abuse Code(s): Z72.0 - Tobacco use Status: Chronic (2) Chest pain Code(s): R07.9 - Chest pain, unspecified Status: Resolved (3) Hypertension Code(s): I10 - Essential (primary) hypertension Status: Chronic (4) AVNRT (AV red re-entry tachycardia) Code(s): I47.1 - Supraventricular tachycardia Status: Acute (5) Anemia of renal disease Code(s): D63.1 - Anemia in chronic kidney disease Status: Chronic - Plan 57-year-old F with PMHx of Insulin Dependent Diabetes Mellitus, legally blind, ESRD on hemodialysis admitted due to chest pain and palpitations found to have AVNRT s/p adenosine in the ER, now stable in NSR, HD#3 1. Chest Pain/AVNRT, resolved s/p Adenosine in the ER Now is normal sinus rhythm, asymptomatic Cardiology was consulted, appreciate assistance with management Cont. Metoprolol Monitor on telemetry NPO for EP study possible ablation this afternoon Per Cardiology 08/19: SVT: Appears to have gone back into AVNRT leading her to the ER, s/p Adenosine 6mg x1 converting her Spoke with Dr. Liz, will plan on EP study and possible ablation tomorrow afternoon Chest pain: Previous cath showing mild disease, Most likely secondary to AVNRT 2. ESRD on hemodialysis M/W/F Consulted Nephrology, appreciate assist with management Cr 9.03 today from 7.05 s/p HD today F/U BMP in AM Avoid nephrotoxic meds Monitor electrolytes and replace as necessary, continue PhosLo 3. Insulin-dependent Diabetes Mellitus BS stable Continue Detemir 10U QHS and sliding scale insulin Continue to monitor blood sugar 4. Legal blind: Noted. 5. COPD Cont. Budesonide/Formoterol BID 6. Gout Continue Allopurinol for prophylaxis 7. HTN Poorly controlled (Midodrine held today) Cont. Metoprolol increased to 50mg BID, Lasix, and Aspirin 8. HLD Cont. Statin 9. Anemia of Chronic Disease/iron deficient Diagnosed per iron panel Hemoglobin 9.4 today from 9.5 Rx Ferrous Sulfate Follow-up CBC in AM 10. DVT/GI prophylaxis: SCD's/Lovenox/Pepcid 11. Dispo: Scheduled for EP study with possible ablation today with Cardiology, NPO until procedure. Home Midodrine stopped due to elevated blood pressures, Metoprolol increased. Code Status: full Discussed Condition With: patient, RN (2) Chest pain Qualifiers: Chest pain type: unspecified Qualified Code(s): R07.9 - Chest pain, unspecified
[2018-08-19] MEDS ORDERED: Isoproterenol HCl Inj 0.2 MG/ML Ampul ONE (17:50)
--- NOTE | 2018-08-19 18:35 | CATHPROC ---
Patient Name: Mariza Lovell Study #: [id number] Initial MD: Anjelica Liz Date of : 1960 Study Date: 08/19/2018 Cardiac Catheterization Report 08/19/2018 6:35:17 PM Financial #: [id number] 1 of 8 Patient Name: Mariza Lovell Study #: [id number] Initial MD: Anjelica Liz Date of : 1960 Study Date: 08/19/2018 Entire Case Report Patient Information Patient Name Mariza Lovell Date of 1960 Age 57 years Financial # [id number] Gender F AlternateID Lab Number 2 Room Number 1404 Height (in) 67.0 Height (cm) 170.1 BSA 2.10 Weight (lbs) 218.5 Weight (kg) 99.3 Patient Address/Phone Number Home Address [facility] Home Phone Number [phone] [phone] Study Information Study Number Admission Scheduled Start Study Start [id number] Aug 17 2018 12:59PM 08/19/2018 Aug 19 2018 4:40PM [place] [facility] Cardiac Catheterization Admit Source Facility Department Other [facility] - Capsule Filling Machine Operator Physician and Clinical Staff Initial Anjelica Estrada Records And Information Manager Driss Thacekr,RT(R) Other Anesthesia, POKER SUPERVISOR Recorder Maria L Peralta,RN Recorder Ladonna Chavarria,GALI Scrub Marsha Morel,PRINCIPAL WEB DEVELOPER TECH2 08/19/2018 6:35:17 PM Financial #: [id number] 2 of 8 Patient Name: Mariza Lovell Study #: [id number] Initial MD: Anjelica Liz Date of : 1960 Study Date: 08/19/2018 Equipment Time Manager Of Production Description Size Mfg Part Number Used/Scraped [id number] 16:42 [employer] BLANKET,WARM AIR CCL * Used *[id number] 16:42 [employer] PACK, CCL CUSTOM * Used *[id number] 16:42 MEDLINE PACER ANDERSEN, LIMB * 2530 *[id number] Used [id number] 17:29 [employer] MED[employer] CATHETER, JSN, QUAD FR 5 Used *[id number] 17:29 [employer] MED[employer] CATHETER, JSN, QUAD FR 5 Used *[id number] 17:29 [employer] MED[employer] CATHETER, JSN, QUAD FR 5 Used *[id number] 473440 17:29 [employer] MED[employer] CATHETER, JSN, QUAD FR 5 Used *[id number] 17:52 [employer] MED[employer] CATHETER, JSN, QUAD FR 5 Used *[id number] 16:42 [employer] MEDICAL ELECTRODE KIT, DENISE X SURFACE * Used *[id number] 648750 17:28 [employer] MED[employer] SHEATH, EPS, FR5 FAST CATH FR 5 Used *[id number] 411160 17:28 [employer] SHEATH, EPS, FR5 FAST CATH FR 5 Used *[id number] 838316 17:28 [employer] SHEATH, EPS, FR5 FAST CATH FR 5 Used *[id number] 665593 17:28 [employer] MED[employer] SHEATH, EPS, FR6 FAST CATH FR 6 Used *[id number] 17:38 [employer] SHEATH, EPS, FR7 FAST CATH FR 7 [id number] Used 316339 17:28 [employer] MED[employer] SHEATH, EPS, FR8 FAST CATH FR 8 Used *[id number] [facility] PAD, ELECTROSURGICAL 16:42 * [id number] *[id number] Used SURGICAL GROUNDING (BLUE) Insurance Information Insurance Payor Private Health Insurance Third Alliance Party Third Alliance Party Number [employer] Medicare UHCMCR 08/19/2018 6:35:17 PM Financial #: [id number] 3 of 8 Patient Name: Mariza Lovell Study #: [id number] Initial MD: Anjelica Liz Date of : 1960 Study Date: 08/19/2018 History: Allergies Allergy Reaction linezolid VOMITING Percocet VOMITING Zocor VOMITING Zosyn VOMITING oxycodone VOMITING acetaminophen VOMITING simvastatin VOMITING tazobactam VOMITING piperacillin VOMITING History: Risk Factors Hypertension Dyslipidemia Yes Yes Peripheral Artery Chronic Lung Diabetes Disease Disease Labs Hgb (g/dl) Hct (%) RBC (MIL/MM3) WBC (l/cumm) Platelets (thousands) 11.60-17.00 35.00-51.00 4.00-5.90 4.00-11.00 150.00-450.00 9.0 29 3 7 227 Glucose (mg/dl) BUN (mg/dl) Creatinine (mg/dl) BUN:Creatinine (1:x) 74.00-106.00 7.00-18.00 0.50-1.30 10.00-20.00 83 61 9.0 6.8 Na (meq/l) K (meq/l) 136.00-145.00 3.50-5.10 140 5 INR (PTT:PT) 0.90-1.10 1 Medication Medication Total Dose (Bolus/Oral) Medication Total Dosage/Unit 1% XYLOCAINE 40 mL 08/19/2018 6:35:17 PM Financial #: [id number] 4 of 8 Patient Name: Mariza Lovell Study #: [id number] Initial MD: Anjelica Liz Date of : 1960 Study Date: 08/19/2018 Medications (Bolus/Oral) Medication Time Given Dosage/Unit Administered By Reason 1% XYLOCAINE 08/19/2018 5:44:57 PM 20 mL Anjelica Liz 20 mL 1% XYLOCAINE given in lab by Anjelica Liz in Left Groin via Subcutaneous. 1% XYLOCAINE 08/19/2018 5:45:32 PM 20 mL Anjelica Liz 20 mL 1% XYLOCAINE given in lab by Anjelica Liz in Right Groin via Subcutaneous. Medication (Drip) Medication Time Given Dosage/Unit Concentration/Unit Diluent (ml) Solution ISUPREL 08/19/2018 6:03:17 PM 4 mcg/min 1 mg 250 NaCl .9 4 mcg/min ISUPREL given in lab by Lynne POKER SUPERVISOR via Peripheral IV. Pump/Drip Flow = 60 ml/hr using NaCl .9 with a concentration of 1 mg in 250 ml. Ordered by Anjelica Liz. ISUPREL DRIP STOPPED 08/19/2018 6:09:58 PM 0 units/hr 0 0 units/hr ISUPREL DRIP STOPPED given in lab by Anesthesia, POKER SUPERVISOR. Pump/Drip Flow = 0 ml/hr using [Rhiannon ution Name]. Ordered by Anjelica Liz. Initial Case Assessment Cardiovascular HR Rhythm NIBP Chest Pain 120 st 189/98 0 Edema Present Skin color Skin None Normal Warm Dry Circulatory - Right Pulses Dorsalis Pedis 1 Scale (0,1,2,3,4,d) Circulatory - Left Pulses Dorsalis Pedis 1 Scale (0,1,2,3,4,d) Neurological State Oriented to time-place- Alert Moves all extremities person Respiration - General Respiration Rate SpO2 (%) (B/min) 18 94 Chronological Log 08/19/2018 6:35:17 PM Financial #: [id number] 5 of 8 Patient Name: Mariza Lovell Study #: [id number] Initial MD: Anjelica Liz Date of : 1960 Study Date: 08/19/2018 Time Study Chronological Log 17:11:59 Patient arrived via Bed. 17:12:00 Patient Name, D.O.B, / Armband Verified By R.N. 17:12:00 Consent signed by the physician and the patient and verified by the Capsule Filling Machine Operator staff. 17:12:08 Pre-op and post- op instructions given; patient acknowledges understanding of instructions. 17:12:10 Verbal Stimulation=2 Physical Stimulation=2 Airway=2 Respiration=2 TOTAL=8. (0=absent, 1=li mited, 2=present) 17:12:13 Patient has been NPO for More than 6Hrs. 17:12:15 Skin Breakdown- right index finger, sores bilat lower ext, right groin sore 17:12:18 Patient Warmer Placed on the Table. 17:12:19 Disposable Defibrillator Pads Placed On Patient. 17:12:22 Beatriz Prominences Protected 17:12:23 A # 20 IV was noted in the Antecubital (right). Grade = 0 17:12:25 History and physical on the chart or being dictated. 17:20:25 Anesthesia at bedside. Assumes care of patient. SEE RECORDS FOR ALL MEDS AND VITALS DURING PROCEDURE Assessment: Initial Case, JF=663 BPM, Rhythm=st, ZLSK=104/98 mmhg, Chest Pain=0, Edema=None, Co bora=Normal, Skin = Warm, Dry Right Pulses: Darren Ped=1 17:26:13 Left Pulses: Darren Ped=1 Neurological: State=Alert, Ox3, PIMENTEL Respiration: Resp=18 B/min, SpO2=94 % 17:26:50 Table restraints applied according to hospital policy 17:26:51 Bilateral groins prepped with 2% chlorhexidine, and draped after a 3 minute waiting time. 17:31:03 Reference ECG taken Time Out. Correct patient, procedure, procedure equipment, site and side verified with physicia n present. Time 17:42:42 concurred by MD, individual staff and POKER SUPERVISOR. Time Out #2 - Consents verified, patient in correct position, all results are labled and displa yed, safety precautions 17:42:44 taken, antibiotics administered. Time out concurred by MD, individual staff and POKER SUPERVISOR in procedu re 17:42:45 Case Start 17:44:57 20 mL 1% XYLOCAINE given in lab by Anjelica Liz in Left Groin via Subcutaneous. 17:45:05 Vascular access was obtained in the Fem Vein (left). 17:45:08 Vascular access was obtained in the Fem Vein (left). 17:45:09 Vascular access was obtained in the Fem Vein (left). 17:45:11 A SHEATH, EPS, FR5 FAST CATH FR 5 was advanced into the Fem Vein (left) using the Modified Seldinger technique. 17:45:19 A SHEATH, EPS, FR5 FAST CATH FR 5 was advanced into the Fem Vein (left) using the Modified Seldinger technique. 17:45:21 A SHEATH, EPS, FR5 FAST CATH FR 5 was advanced into the Fem Vein (left) using the Modified Seldinger technique. 17:45:32 20 mL 1% XYLOCAINE given in lab by Anjelica Liz in Right Groin via Subcutaneous. 17:45:38 Vascular access was obtained in the Fem Vein (right). 17:45:40 Vascular access was obtained in the Fem Vein (right). 17:45:41 A SHEATH, EPS, FR6 FAST CATH FR 6 was advanced into the Fem Vein (right) using the Modified Seldinger technique. 17:45:50 A SHEATH, EPS, FR8 FAST CATH FR 8 was advanced into the Fem Vein (right) using the Modified Seldinger technique. 08/19/2018 6:35:17 PM Financial #: [id number] Patient Name: Mariza Lovell Study #: [id number] Initial MD: Anjelica Liz Date of : 1960 Study Date: 08/19/2018 A CATHETER, JSN, QUAD FR 5 was advanced vis Fem Vein (right) and placed in the CS. Placement w as visually 17:47:22 confirmed under fluoroscopy. A CATHETER, JSN, QUAD FR 5 was advanced vis Fem Vein (left) and placed in the HIS. Placement w as visually 17:47:33 confirmed under fluoroscopy. A CATHETER, JSN, QUAD FR 5 was advanced vis Fem Vein (left) and placed in the HRA. Placement w as visually 17:47:43 confirmed under fluoroscopy. A CATHETER, JSN, QUAD FR 5 was advanced vis Fem Vein (left) and placed in the RVA. Placement w as visually 17:47:51 confirmed under fluoroscopy. 17:59:10 EP STUDY IN PROGRESS 4 mcg/min ISUPREL given in lab by Anesthesia, KATHY via Peripheral IV. Pump/Drip Flow = 60 ml/h r using NaCl .9 with 18:03:17 a concentration of 1 mg in 250 ml. Ordered by Anjelica Liz. 18:07:14 Incremental Atrial Pacing in progress 0 units/hr ISUPREL DRIP STOPPED given in lab by Anesthesia, POKER SUPERVISOR. Pump/Drip Flow = 0 ml/hr usi ng [Solution Name]. 18:09:58 Ordered by Anjelica Liz. 18:16:11 EPS IN PROGRESS. 18:17:46 EPS COMPLETE. All catheter(s) and sheaths removed without difficulty 18:18:12 Pressure applied 18:32:56 Case End (Physician broke scrub) 18:32:57 Sterile dressing applied to site 18:32:57 No case complications noted. 18:32:59 Cine recording checked. 18:33:01 Bedside Report will be given. 18:33:03 docu called. Spoke to Anthony 18:33:15 Defibrillator and ground pads removed. Skin intact. 18:34:14 EP Procedure was performed. 18:35:17 [facility] End Study - Contrast Media Used In Study Contrast Total Opened (mL) Total Used (mL) Total Wasted (mL) Unspecified 0 0 0 End Study - Maximum Contrast Load Max Contrast Load (mL) 55.2 End Study - Radiation Exposure Fluoro Time (minutes) 5.4 08/19/2018 6:35:17 PM Financial #: [id number] 7 of 8 Patient Name: Mariza Lovell Study #: [id number] Initial MD: Anjelica Liz Date of : 1960 Study Date: 08/19/2018 End Study - Patient Disposition Complications Transferred To Interventional Outcome No Telemetry Bed successful 08/19/2018 6:35:17 PM Financial #: [id number]
[2018-08-19] MEDS: Ferrous Sulfate 325 MG Tablet PO SCH (18:51)
[2018-08-19] MEDS: Insulin Detemir Inj 1,000 UNIT/10 ML Vial SQ SCH (21:53)
[2018-08-19] MEDS: Metoprolol Tartrate 50 MG Tablet PO SCH (21:53)
--- NOTE | 2018-08-19 21:58 | P.PNCA ---
Subjective Interval history: NPO for EP study and possible ablation Medications and Allergies Active Medications: Active Medications Acetaminophen (Tylenol) 650 mg PO UNSCH PRN PRN Reason: SEE LABEL COMMENTS Al Hydroxide/Mg Hydroxide (Milk Of Estephania Piedra) 30 ml PO Q12H PRN PRN Reason: Mild Constipation Allopurinol (Zyloprim) 100 mg PO DAILY [facility] Last Admin: 08/19/18 13:04 Dose: 100 mg Aspirin (Ecotrin) 81 mg PO DAILY [facility] Last Admin: 08/19/18 13:04 Dose: 81 mg Atorvastatin Calcium (Lipitor) 10 mg PO DAILY [facility] Last Admin: 08/19/18 13:04 Dose: 10 mg Bisacodyl (Dulcolax Supp) 10 mg RECTAL DAILY PRN PRN Reason: SEVERE CONSITIPATION Budesonide/Formoterol Fumarate (Symbicort 160/4.5 Mcg Inh) 2 puff INH BID [facility] Last Admin: 08/19/18 13:05 Dose: 2 puff Calcium Acetate (Phoslo) 667 mg PO TID [facility] Last Admin: 08/19/18 18:52 Dose: Not Given Dextrose (D50w Vial) 50 ml IV.PUSH UNSCH PRN PRN Reason: PER HYPOGLYCEMIA PROTOCOL Diphenhydramine HCl (Benadryl) 25 mg PO UNSCH PRN PRN Reason: SEE LABEL COMMENTS Enoxaparin Sodium (Lovenox Inj) 30 mg SQ Q24H [facility] Last Admin: 08/18/18 12:59 Dose: 30 mg Epoetin Francisco (Epogen Inj) 10,000 unit IV.PUSH UNSCH PRN PRN Reason: SEE LABEL COMMENTS Last Admin: 08/19/18 11:22 Dose: 10,000 unit Famotidine (Pepcid) 10 mg PO BID [facility] Last Admin: 08/19/18 21:52 Dose: 10 mg Ferrous Sulfate (Ferosul) 325 mg PO BID@1200,1700 [facility] Last Admin: 08/19/18 18:51 Dose: Not Given Furosemide (Lasix) 80 mg PO DAILY [facility] Last Admin: 08/19/18 13:04 Dose: 80 mg Gelatin (Gelfoam 12 Mm/7 Mm Topical) 1 foam TOPICAL PRN PRN PRN Reason: help stop bleeding from site Last Admin: 08/19/18 11:22 Dose: 1 foam Gentamicin Sulfate (Gentamicin Inj) 20 mg OTHER WITH DIALYSIS PRN PRN Reason: Dwell Gentamycin Lock Glucagon (Glucagon Inj) 1 mg OTHER PRN PRN PRN Reason: for Hypoglycemia Protocol Heparin Sodium (Porcine) (Heparin Inj) 8,000 units OTHER WITH DIALYSIS PRN PRN Reason: for machine prime Heparin Sodium (Porcine) (Heparin Inj) 1,000 units OTHER WITH DIALYSIS PRN PRN Reason: Dwell Heparin to Fill Catheter Albumin Human (Flexbumin 25% Inj) 100 mls @ 60 mls/hr IV.SIG WITH DIALYSIS PRN PRN Reason: hypotension / volume replace Sodium Chloride (Ns Inj) 1,000 mls @ 0 mls/hr OTHER .Q0M PRN PRN Reason: for prime and rinse back Last Admin: 08/19/18 03:53 Dose: 30 mls/hr Sodium Chloride (Ns Inj) 1,000 mls @ 200 mls/hr OTHER .Q5H PRN PRN Reason: for dialyzer flush PRN Sodium Chloride (Ns Inj) 1,000 mls @ 0 mls/hr IV.CONT .Q0M PRN PRN Reason: hypotension / volume replace Insulin Aspart (Novolog Insulin Correctional Sugar Inj) 0 unit SQ ACHS [facility]; Protocol Last Admin: 08/19/18 18:51 Dose: Not Given Insulin Detemir (Levemir Inj) 10 unit SQ HS [facility] Last Admin: 08/19/18 21:53 Dose: 10 unit Lactulose (Lactulose Liq) 30 ml PO DAILY PRN PRN Reason: SEVERE CONSITIPATION Mannitol (Mannitol Inj) 12.5 gm IV.PUSH UNSCH PRN PRN Reason: hypotension / volume replace Melatonin (Melatonin) 5 mg PO HS PRN PRN Reason: Insomnia Metoprolol Tartrate (Lopressor) 50 mg PO BID [facility] Last Admin: 08/19/18 21:53 Dose: 50 mg Midodrine (Proamatine) 5 mg PO TID [facility] Last Admin: 08/19/18 13:04 Dose: 5 mg Nitroglycerin (Nitrostat Sl) 0.4 mg SL Q5M PRN PRN Reason: CHEST PAIN Ondansetron HCl (Zofran Inj) 4 mg IV.PUSH UNSCH PRN PRN Reason: NAUSEA OR VOMITING Ondansetron HCl (Zofran Inj) 4 mg IV.PUSH Q4H PRN PRN Reason: NAUSEA Pt Own Med - ( Brimonidine-Timolol [Brimonidine-Timolol ] 1 Drp) 0 each EACH EYE Q12H [facility] Promethazine HCl (Phenergan) 25 mg PO BID PRN PRN Reason: Nausea Senna/Docusate Sodium (Maya-Colace) 1 tab PO BID [facility] Last Admin: 08/19/18 21:54 Dose: 1 tab Sennosides (Senokot) 17.2 mg PO Q12H PRN PRN Reason: Moderate Constipation Last Admin: 08/19/18 13:04 Dose: 17.2 mg Sodium Chloride (Ns Flush) 2 ml IV.FLUSH UNSCH PRN PRN Reason: FLUSH AFTER USING IV ACCESS Last Admin: 08/18/18 21:27 Dose: 2 ml Sodium Chloride (Ns Flush) 5 ml IV.FLUSH PRN PRN PRN Reason: flush each lumen during HD Allergies Allergy/AdvReac Type Severity Reaction Status Date / Time acetaminophen Allergy Severe VOMITING Verified 08/17/18 09:44 linezolid Allergy Severe VOMITING Verified 08/17/18 09:44 piperacillin Allergy Severe VOMITING Verified 08/17/18 09:44 simvastatin Allergy Severe VOMITING Verified 08/17/18 09:44 tazobactam Allergy Severe VOMITING Verified 08/17/18 09:44 oxycodone AdvReac Severe VOMITING Verified 08/17/18 09:44 Home Medications Medication Instructions Recorded Confirmed Type B complex with C#20-folic acid 1 cap PO DAILY 05/19/18 08/17/18 History [Renal Caps] allopurinol [Zyloprim] 100 mg PO DAILY 05/19/18 08/17/18 History atorvastatin [Lipitor] 10 mg PO DAILY 05/19/18 08/17/18 History bisacodyl [Dulcolax (bisacodyl)] 5 mg PO BID 05/19/18 08/17/18 History brimonidine-timolol 1 drp EACH EYE Q12H 05/19/18 08/17/18 History calcium acetate 667 mg PO TID 05/19/18 08/17/18 History duloxetine [Cymbalta] 20 mg PO DAILY 05/19/18 08/17/18 History famotidine [Pepcid] 20 mg PO BID 05/19/18 08/17/18 History fluticasone-salmeterol [Advair 1 inh INHALATION BID 05/19/18 08/17/18 History Diskus] furosemide [Lasix] 80 mg PO DAILY 05/19/18 08/17/18 History insulin detemir U-100 [Levemir 10 unit SUB-Q HS 05/19/18 08/17/18 History U-100 Insulin] promethazine 25 mg PO BID PRN 05/19/18 08/17/18 History sennosides-docusate sodium [Senna 1 tab PO DAILY 05/19/18 08/17/18 History Plus] melatonin 5 mg PO HS PRN 07/10/18 08/17/18 History Physical Exam Vital signs: Vital Signs 08/19/18 00:00 08/19/18 03:18 08/19/18 04:00 Temperature 97.8 F 98.3 F Pulse Rate 68 72 70 Respiratory Rate 20 20 Blood Pressure 162/70 H 176/91 H Pulse Oximetry 90 L 96 08/19/18 08:00 08/19/18 12:00 08/19/18 12:50 Temperature 97.5 F L 97.5 F L Pulse Rate 73 73 73 Respiratory Rate 20 18 Blood Pressure 189/88 H 193/83 H Pulse Oximetry 98 91 L 08/19/18 14:31 08/19/18 16:00 Temperature 99.3 F Pulse Rate 76 Respiratory Rate 17 Blood Pressure 190/91 H Pulse Oximetry 95 96 Intake & Output 08/19/18 08/19/18 08/20/18 06:59 18:59 06:59 Output Total 1999 Balance -1999 Weight 99.3 kg Output: Hemodialysis Amount 1999 Narrative: GENERAL: Well-nourished -[place] female, in no acute distress, sitting comfortably in bed, patient is legally blind SKIN: Warm and dry. Left upper extremity fistula. HEENT: Normocephalic. Atraumatic. No scleral icterus. No injection or drainage. PERRLA, MOM. NECK: Supple, trachea midline. No JVD or lymphadenopathy. CARDIOVASCULAR: Regular rate and rhythm, S1 and S2, 1/6 KATHIE over pulmonic region RESPIRATORY: Breath sounds equal bilaterally. No accessory muscle use. GASTROINTESTINAL: Abdomen soft, non-tender, nondistended. MUSCULOSKELETAL: No cyanosis, or edema. BACK: Nontender without obvious deformity. No CVA tenderness. NEURO: AAO x3, no focal deficits, motor strength 5/5 x 4, speech clear. Results 08/19/18 07:45 08/19/18 07:45 Cardiac Enzymes 08/18/18 08/19/18 Range/Units 06:48 07:45 AST 16 8 L (15-37) U/L CBC 08/18/18 08/19/18 Range/Units 06:48 07:45 WBC 6.2 6.7 (4.0-11.0) th/mm3 RBC 3.03 L 2.97 L (4.00-5.30) mil/mm3 Hgb 9.5 L 9.4 L (11.6-15.3) gm/dL Hct 29.4 L 28.8 L (35.0-46.0) % Plt Count 208 227 (150-450) th/mm3 Neut # (Auto) 4.1 4.5 (1.8-7.7) th/mm3 Lymph # (Auto) 1.2 1.2 (1.0-4.8) th/mm3 [place] # (Auto) 0.7 0.6 (0.0-0.9) th/mm3 Eos # (Auto) 0.1 0.3 (0.0-0.4) th/mm3 Baso # (Auto) 0.0 0.0 (0.0-0.2) th/mm3 Comprehensive Metabolic Panel 08/18/18 08/19/18 Range/Units 06:48 07:45 Sodium 139 140 (136-145) meq/L Potassium 4.8 D 5.0 (3.5-5.1) meq/L Chloride 100 98 (98-107) meq/L Carbon Dioxide 30.5 32.4 H (21.0-32.0) meq/L BUN 41 H 61 H (7-18) mg/dL Creatinine 7.05 H 9.03 H (0.50-1.00) mg/dL Calcium 7.9 L 8.7 D (8.5-10.1) mg/dL AST 16 8 L (15-37) U/L ALT 13 17 (10-53) U/L Alkaline Phosphatase 116 116 (45-117) U/L Total Protein 7.7 7.9 (6.4-8.2) g/dL Albumin 3.1 L 3.2 L (3.4-5.0) g/dL Intake and Output 08/19/18 08/19/18 08/19/18 06:59 14:59 22:59 Output Total 1999 Balance -1999 Output: Hemodialysis Amount 1999 Other: Weight 99.3 kg Assessment and Plan - Assessment (1) Tobacco abuse Code(s): Z72.0 - Tobacco use Status: Chronic (2) ESRD (end stage renal disease) on dialysis Code(s): N18.6 - End stage renal disease; Z99.2 - Dependence on renal dialysis Status: Acute (3) Chest pain Code(s): R07.9 - Chest pain, unspecified Status: Resolved (4) Hypertension Code(s): I10 - Essential (primary) hypertension Status: Chronic (5) AVNRT (AV red re-entry tachycardia) Code(s): I47.1 - Supraventricular tachycardia Status: Acute - Plan 1) SVT Appears to have gone back into AVNRT leading her to the ER s/p Adenosine 6mg x1 converting her Spoke with Dr. Liz, will plan on EP study and possible ablation, planned for this afternoon 2) Chest pain Previous cath showing mild disease Most likely secondary to AVNRT 3) ESRD on HD (3) Chest pain Qualifiers: Chest pain type: unspecified Qualified Code(s): R07.9 - Chest pain, unspecified
[2018-08-20 05:05] LABS: Baso % (Auto) 0.7 % (0.0-2.0); Eos # (Auto) 0.3 th/mm3 (0.0-0.4); Eos % (Auto) 4.8 % (0.0-4.0); Hematocrit 28.4 % (35.0-46.0); Hemoglobin 9.1 gm/dL (11.6-15.3); Lymph % (Auto) 19.2 % (9.0-44.0); Mean Corpuscular HGB Conc 32.1 % (32.0-36.0); Mean Corpuscular Hemoglobin 31.3 pg (27.0-34.0); Mean Corpuscular Volume 97.7 fL (80.0-100.0); Mean Platelet Volume 9.6 fL (7.0-11.0); Mono # (Auto) 0.6 th/mm3 (0.0-0.9); Mono % (Auto) 10.8 % (0.0-8.0); Neut # (Auto) 3.4 th/mm3 (1.8-7.7); Neut % (Auto) 64.5 % (16.0-70.0); Platelet Count 212 th/mm3 (150-450); Red Blood Count 2.91 mil/mm3 (4.00-5.30); Red Cell Distribution Width 18.3 % (11.6-17.2); White Blood Count 5.3 th/mm3 (4.0-11.0)
[2018-08-20 05:35] LABS: Alanine Aminotransferase 14 U/L (10-53); Albumin 3.2 g/dL (3.4-5.0); Alkaline Phosphatase 116 U/L (45-117); Anion Gap 8 meq/L (5-15); Aspartate Aminotransferase 12 U/L (15-37); Blood Urea Nitrogen 36 mg/dL (7-18); Calcium 8.4 mg/dL (8.5-10.1); Carbon Dioxide 33.7 meq/L (21.0-32.0); Chloride 99 meq/L (98-107); Glomerular Filtration Rate 8 mL/min (>89); Glucose,Random 96 mg/dL (74-106); Potassium 4.7 meq/L (3.5-5.1); Sodium 141 meq/L (136-145); Total Protein 7.6 g/dL (6.4-8.2)
--- NOTE | 2018-08-20 07:19 | MA ---
cc: Anjelica Liz MD, Vincent G DO DATE: 08/19/2018 INDICATIONS: Mrs. Morales is a 57-year-old female with history of end-stage renal disease on hemodialysis, tachyarrhythmia, referred for electrophysiologic study and possible ablation. The risks, the nature and the benefits of the procedure were clearly stated to her. Risks include pneumothorax, cardiac perforation, stroke, need for open heart surgery, and even . The patient understood and agreed to proceed. PROCEDURE: After informed consent was obtained, the patient was brought to the EP lab where she was prepped and draped in the usual sterile fashion. Conscious sedation was initiated and maintained throughout the procedure by the anesthesiologist. Once sedation was verified, the right and left inguinal area was anesthetized with 2% Xylocaine. Using modified Seldinger technique, the left femoral vein was cannulated on 3 occasions and 3 guidewires were advanced over the wire, three 5-Surinamese Hemaquets were advanced into right femoral vein. The right femoral vein was cannulated on 2 occasions. Two guidewires were advanced over the wire. Then 6, 7 and 10 Sur[place]amese Hemaquets were advanced. Then, under fluoroscopic guidance through the 5 and 6- [place]amese Hemaquets, four 5 Surinamese Emma curved quadripolar electrophysiology catheters were advanced and placed on the His as well as right atrium, coronary sinus and right ventricular apex. Basic intervals were measured. They were within normal limits. At this point, atrial pacing protocol was performed. Atrial pacing protocol consisted of atrial pacing as well as program simulation of cycle length and up to 1 extrastimuli delivered. No tachyarrhythmia was induced. Subsequently, two ____ were delivered in the atrium. No tachyarrhythmia was induced. No echo beat observed. No jump observed either. Then, ventricular pacing protocol was performed. There was VA conduction which is a paced protocol. ventricular pacing, as well as program simulation, ____ and 1 extrastimuli delivered. No tachyarrhythmia was induced. Then, Isuprel infusion was initiated. Atrial pacing protocol was repeated. Again, no tachyarrhythmia was induced. Post-Isuprel, no tachyarrhythmia was induced. At that point, the procedure was complete. All catheters were removed. The patient at the beginning of the case was in a kind of junctional rhythm. This is basically atrial tachyarrhythmia and junctional rhythm. There is no echo beat no preexcitation. The patient will be transferred to the recovery room. No incident to report. The patient tolerated the procedure. Blood loss minimal. ELECTROCARDIOGRAM: At baseline, the patient was in supraventricular junctional rhythm. Postprocedure, the patient is in sinus rhythm. BASIC INTERVAL: Base, cycle length was 880 milliseconds, AH at 48 and HV at 54 milliseconds. ATRIAL PACING PROTOCOL: Wenckebach of the node at baseline was 400 milliseconds. ERP of the node was 600; 220 milliseconds. No tachyarrhythmia was induced. VENTRICULAR PACING PROTOCOL: There was VA conduction. No tachyarrhythmia was induced. CONCLUSION: Negative electrophysiology study for supraventricular tachyarrhythmia; 3D mapping was used for catheter placement. RECOMMENDATIONS: The patient is going to be transferred to the recovery room. He will be observed and can be discharged home whenever it is okay with the managing team. MD ZAYDA Soto/thomas/zan , 06:23 PM , 06:35 PM
[2018-08-20] MEDS: Calcium Acetate 667 MG Capsule PO SCH ×2 (08:32→12:54)
[2018-08-20] MEDS: Senna/Docusate Sodium 8.6/50 MG Tablet PO SCH (08:32)
[2018-08-20] MEDS: Allopurinol 100 MG Tablet PO SCH (08:32)
[2018-08-20] MEDS: Famotidine 20 MG Tablet PO SCH (08:32)
[2018-08-20] MEDS: Metoprolol Tartrate 50 MG Tablet PO SCH (08:32)
[2018-08-20] MEDS: Furosemide 80 MG Tablet PO SCH (08:32)
[2018-08-20] MEDS: Budesonide-Formoterol 160/4.5 MCG 6 GM Inhaler INH SCH (10:54)
[2018-08-20] MEDS: Insulin NovoLOG Aspart Correctional Sugar Inj SQ SCH ×2 (11:30→12:34)
[2018-08-20] MEDS: Ferrous Sulfate 325 MG Tablet PO SCH (12:54)
--- NOTE | 2018-08-20 15:47 | P.DS ---
Date of admission: 08/17/18 12:59 Primary care physician: John Genao Anticipated date of discharge: 08/20/18 Brief History from admission: The patient is a very pleasant 57-year-old -[place] female presents by ambulance with chest pain while getting dialysis. She only received half of her dialysis. Her blood pressure was low by report and they gave her 2 nitroglycerin when the ambulance team arrived on scene her systolic was 70. She still has her dialysis accessed per the ambulance team. They held further nitroglycerin given low blood pressure. Patient states her chest pain feels better. She states Dr. Ramirez is her mule packer. She does not know who her business transformation manager is. She does not recall her prior cardiac workup. She denies other concurrent complaints other than shortness of breath but is a poor historian. Patient is she received adenosine, cardiology Dr. Blanc has evaluated the patient. Also patient went for dialysis by Dr. Delgadillo and nephrology is following also the patient says she feels better however she feels very tired after this episode. Has some shortness of breath however she is saturating well on room air. Per nurse patient is coughing more. Patient is getting hemodialysis. Patient update on day of discharge: Patient has been doing well. No palpitations no chest pain. No shortness of breath. Wants to go home today. DS: Diagnosis - Discharge Diagnosis (1) AVNRT (AV red re-entry tachycardia) Status: Acute Diagnosis: Principal (2) ESRD (end stage renal disease) on dialysis Status: Chronic Diagnosis: Secondary (3) Hypertension Status: Chronic Diagnosis: Secondary DS: Summary Hospital Course: These are the medical issues addressed during this hospitalization: 57-year-old F with PMHx of Insulin Dependent Diabetes Mellitus, legally blind, ESRD on hemodialysis admitted due to chest pain and palpitations found to have AVNRT s/p adenosine in the ER, now stable in NSR, HD#3 1. SVT/ AVNRT, resolved s/p Adenosine in the ER and later went back into AVNRT with consult to Dr. Liz for EP study Status post EP study yesterday and cleared by cardiology for discharge. Now is normal sinus rhythm, asymptomatic Prescription for metoprolol twice daily will be given. 2. ESRD on hemodialysis M/W/F Consulted Nephrology, appreciate assist with management Avoid nephrotoxic meds Monitor electrolytes and replace as necessary, continue PhosLo 3. Insulin-dependent Diabetes Mellitus, insulin-dependent with complications of end-stage renal disease, nephropathy Continue Detemir 10U QHS and sliding scale insulin Continue to monitor blood sugar 4. Legal blind: Noted. 5. COPD, chronic with no exacerbation Cont. Budesonide/Formoterol BID 6. Gout Continue Allopurinol for prophylaxis 7. HTN, chronic essential Cont. Metoprolol increased to 50mg BID, Lasix, and Aspirin 8. HLD Cont. Statin 9. Anemia of Chronic Disease/iron deficient Diagnosed per iron panel Rx Ferrous Sulfate Epogen with dialysis patient 10. DVT/GI prophylaxis: SCD's/Lovenox/Pepcid Has gained maximum benefit from hospitalization and is ready to be transition to home. - Time Spent with Patient Total time spent providing and/or coordinating discharge services: Less than 30 minutes - Quality: VTE Deep Vein Thrombosis/Pulmonary Embolism Present on Admission: No Exam Vital signs: Vital Signs 08/19/18 16:00 08/19/18 19:06 08/19/18 19:36 Temperature 99.3 F 99.3 F 98.1 F Pulse Rate 76 76 123 H Respiratory Rate 17 17 16 Blood Pressure 190/91 H 190/91 H 133/70 Pulse Oximetry 96 96 96 08/19/18 20:00 08/19/18 20:06 08/19/18 20:36 Temperature 98 F 98 F 98 F Pulse Rate 122 H 122 H 80 Respiratory Rate 18 18 18 Blood Pressure 125/56 L 125/56 L 115/55 L Pulse Oximetry 96 96 96 08/19/18 21:00 08/19/18 21:06 08/19/18 22:00 Temperature 98 F Pulse Rate 122 H 86 76 Respiratory Rate 16 Blood Pressure 135/64 Pulse Oximetry 96 08/19/18 22:06 08/19/18 23:00 08/20/18 00:00 Temperature 98 F 98 F Pulse Rate 82 70 76 Respiratory Rate 18 18 Blood Pressure 133/70 129/58 L Pulse Oximetry 96 96 08/20/18 01:00 08/20/18 02:00 08/20/18 03:00 Temperature Pulse Rate 76 66 67 Respiratory Rate Blood Pressure Pulse Oximetry 08/20/18 03:06 08/20/18 04:00 08/20/18 05:00 Temperature 98.4 F Pulse Rate 67 66 69 Respiratory Rate 18 Blood Pressure 150/67 H Pulse Oximetry 96 08/20/18 05:59 08/20/18 07:00 08/20/18 08:00 Temperature 97.9 F Pulse Rate 70 69 68 Respiratory Rate 18 Blood Pressure 148/69 H Pulse Oximetry 98 08/20/18 09:00 08/20/18 10:00 08/20/18 11:00 Temperature Pulse Rate 72 70 69 Respiratory Rate Blood Pressure Pulse Oximetry 08/20/18 12:00 08/20/18 12:19 08/20/18 13:00 Temperature 97.4 F L Pulse Rate 68 71 70 Respiratory Rate 18 Blood Pressure 144/63 H Pulse Oximetry 92 L 08/20/18 14:00 08/20/18 14:35 Temperature 98.4 F Pulse Rate 72 72 Respiratory Rate 18 Blood Pressure 137/63 Pulse Oximetry 92 L Intake & Output 08/19/18 08/20/18 08/20/18 18:59 06:59 18:59 Intake Total 120 / 120 1500 / 1500 Output Total 1999 0 / 0 Balance -1999 -1999 120 / 120 1500 / 1500 Weight 94.6 kg Intake: IV 1500 / 1500 NS Inj 1,000 ML @ As Directed 1000 / 1000 OTHER .Q0M PRN Rx#:[id number] Oral 120 / 120 Output: Urine 0 / 0 Hemodialysis Amount 1999 Other: Date of Last Bowel Movement 08/19/18 Narrative: GENERAL: This is a well-nourished, well-developed patient, in no apparent distress. CARDIOVASCULAR: Regular rate and rhythm without murmurs, gallops, or rubs. RESPIRATORY: Clear to auscultation. Breath sounds equal bilaterally. No wheezes , rales, or rhonchi. GASTROINTESTINAL: Abdomen soft, non-tender, nondistended. Normal active bowel sounds MUSCULOSKELETAL: Extremities without clubbing, cyanosis, or edema. NEURO: Alert & Oriented x4 to person, place, time, situation. Moves all ext x4 Results Procedures completed during hospitalization: 08/19 EP study Labs on day of discharge: Labs from last 24 hours 08/20/18 08/20/18 08/20/18 12:26 09:02 08:10 WBC RBC Hgb Hct MCV MCH MCHC RDW Plt Count MPV Neut % (Auto) Lymph % (Auto) [place] % (Auto) Eos % (Auto) Baso % (Auto) Neut # (Auto) Lymph # (Auto) [place] # (Auto) Eos # (Auto) Baso # (Auto) WBC Differential Differential Comment Sodium Potassium Chloride Carbon Dioxide Anion Gap BUN Creatinine Estimated GFR POC Glucose 131 H 129 H 67 L Random Glucose Calcium Total Bilirubin AST ALT Alkaline Phosphatase Total Protein Albumin 08/20/18 08/20/18 08/19/18 04:14 04:14 21:04 WBC 5.3 RBC 2.91 L Hgb 9.1 L Hct 28.4 L MCV 97.7 MCH 31.3 MCHC 32.1 RDW 18.3 H Plt Count 212 MPV 9.6 Neut % (Auto) 64.5 Lymph % (Auto) 19.2 [place] % (Auto) 10.8 H Eos % (Auto) 4.8 H Baso % (Auto) 0.7 Neut # (Auto) 3.4 Lymph # (Auto) 1.0 [place] # (Auto) 0.6 Eos # (Auto) 0.3 Baso # (Auto) 0.0 WBC Differential . Differential Comment Auto diff final Sodium 141 Potassium 4.7 Chloride 99 Carbon Dioxide 33.7 H Anion Gap 8 BUN 36 H Creatinine 6.56 H Estimated GFR 8 L POC Glucose 158 H Random Glucose 96 Calcium 8.4 L Total Bilirubin 0.4 AST 12 L ALT 14 Alkaline Phosphatase 116 Total Protein 7.6 Albumin 3.2 L - Impressions ITS Impressions Chest X-Ray 08/17/18 09:49 CONCLUSION: Moderate cardiomegaly without significant failure. Bibasilar parenchymal changes worse on the left. Discharge Plan - Discharge Disposition Patient Disposition: Discharge Home - Discharge Condition Condition: Good - Discharge Order Discharge Orders: Discharge Order (Routine); Ordered 08/20/18 Ordered By: Alka Jain - Discharge Details Anticipated Discharge Date: 08/20/18 - Physicians Team Primary Care Provider: John Genao Attending Provider: Alka Jain Other Providers: Sree Blanc DO ; Anjelica Liz MD ; Sai Suggs MD ; [employer]
--- NOTE | 2018-08-20 16:28 | ECG ---
Date Performed: 08/19/2018 Time Performed: 00:24:56 PTAGE: 57 years EKG: Sinus rhythm with borderline 1st degree A-V block Left axis deviation Borderline ECG PREVIOUS TRACING 08/17/18 Since the previous tracing, no significant change noted DOCTOR: Kwesi Blanchard Interpretating Date/Time 08/20/2018 16:27:41
--- NOTE | 2018-08-20 18:29 | P.PNCA ---
Subjective Interval history: No events overnight EP study done, discussed with Dr. Liz Medications and Allergies Allergies Allergy/AdvReac Type Severity Reaction Status Date / Time acetaminophen Allergy Severe VOMITING Verified 08/17/18 09:44 linezolid Allergy Severe VOMITING Verified 08/17/18 09:44 piperacillin Allergy Severe VOMITING Verified 08/17/18 09:44 simvastatin Allergy Severe VOMITING Verified 08/17/18 09:44 tazobactam Allergy Severe VOMITING Verified 08/17/18 09:44 oxycodone AdvReac Severe VOMITING Verified 08/17/18 09:44 Home Medications Medication Instructions Recorded Confirmed Type B complex with C#20-folic acid 1 cap PO DAILY 05/19/18 08/17/18 History [Renal Caps] allopurinol [Zyloprim] 100 mg PO DAILY 05/19/18 08/17/18 History atorvastatin [Lipitor] 10 mg PO DAILY 05/19/18 08/17/18 History bisacodyl [Dulcolax (bisacodyl)] 5 mg PO BID 05/19/18 08/17/18 History brimonidine-timolol 1 drp EACH EYE Q12H 05/19/18 08/17/18 History calcium acetate 667 mg PO TID 05/19/18 08/17/18 History duloxetine [Cymbalta] 20 mg PO DAILY 05/19/18 08/17/18 History famotidine [Pepcid] 20 mg PO BID 05/19/18 08/17/18 History fluticasone-salmeterol [Advair 1 inh INHALATION BID 05/19/18 08/17/18 History Diskus] furosemide [Lasix] 80 mg PO DAILY 05/19/18 08/17/18 History insulin detemir U-100 [Levemir 10 unit SUB-Q HS 05/19/18 08/17/18 History U-100 Insulin] promethazine 25 mg PO BID PRN 05/19/18 08/17/18 History sennosides-docusate sodium [Senna 1 tab PO DAILY 05/19/18 08/17/18 History Plus] melatonin 5 mg PO HS PRN 07/10/18 08/17/18 History Physical Exam Vital signs: Vital Signs 08/19/18 19:06 08/19/18 19:36 10/31/18 20:00 Temperature 99.3 F 98.1 F 98 F Pulse Rate 76 123 H 122 H Respiratory Rate 17 16 18 Blood Pressure 190/91 H 133/70 125/56 L Pulse Oximetry 96 96 96 08/19/18 20:06 08/19/18 20:36 08/19/18 21:00 Temperature 98 F 98 F Pulse Rate 122 H 80 122 H Respiratory Rate 18 18 Blood Pressure 125/56 L 115/55 L Pulse Oximetry 96 96 08/19/18 21:06 08/19/18 22:00 08/19/18 22:06 Temperature 98 F 98 F Pulse Rate 86 76 82 Respiratory Rate 16 18 Blood Pressure 135/64 133/70 Pulse Oximetry 96 96 08/19/18 23:00 08/20/18 00:00 08/20/18 01:00 Temperature 98 F Pulse Rate 70 76 76 Respiratory Rate 18 Blood Pressure 129/58 L Pulse Oximetry 96 08/20/18 02:00 08/20/18 03:00 08/20/18 03:06 Temperature 98.4 F Pulse Rate 66 67 67 Respiratory Rate 18 Blood Pressure 150/67 H Pulse Oximetry 96 08/20/18 04:00 08/20/18 05:00 08/20/18 05:59 Temperature Pulse Rate 66 69 70 Respiratory Rate Blood Pressure Pulse Oximetry 08/20/18 07:00 08/20/18 08:00 08/20/18 09:00 Temperature 97.9 F Pulse Rate 69 68 72 Respiratory Rate 18 Blood Pressure 148/69 H Pulse Oximetry 98 08/20/18 10:00 08/20/18 11:00 08/20/18 12:00 Temperature Pulse Rate 70 69 68 Respiratory Rate Blood Pressure Pulse Oximetry 08/20/18 12:19 08/20/18 13:00 08/20/18 14:00 Temperature 97.4 F L Pulse Rate 71 70 72 Respiratory Rate 18 Blood Pressure 144/63 H Pulse Oximetry 92 L 08/20/18 14:35 08/20/18 15:00 08/20/18 16:00 Temperature 98.4 F Pulse Rate 72 72 72 Respiratory Rate 18 Blood Pressure 137/63 Pulse Oximetry 92 L Intake & Output 08/19/18 08/20/18 08/20/18 18:59 06:59 18:59 Intake Total 120 / 120 1500 / 1500 Output Total 1999 0 / 0 Balance -1999 120 / 120 1500 / 1500 Weight 94.6 kg Intake: IV 1500 / 1500 NS Inj 1,000 ML @ As Directed 1000 / 1000 OTHER .Q0M PRN Rx#:[id number] Oral 120 / 120 Output: Urine 0 / 0 Hemodialysis Amount 1999 Other: Date of Last Bowel Movement 08/19/18 Narrative: GENERAL: This is a well-nourished, well-developed patient, in no apparent distress. CARDIOVASCULAR: Regular rate and rhythm without murmurs, gallops, or rubs. RESPIRATORY: Clear to auscultation. Breath sounds equal bilaterally. No wheezes , rales, or rhonchi. GASTROINTESTINAL: Abdomen soft, non-tender, nondistended. Normal active bowel sounds MUSCULOSKELETAL: Extremities without clubbing, cyanosis, or edema. NEURO: Alert & Oriented x4 to person, place, time, situation. Moves all ext x4 Results 08/20/18 04:14 08/20/18 04:14 Cardiac Enzymes 08/19/18 08/20/18 Range/Units 07:45 04:14 AST 8 L 12 L (15-37) U/L CBC 08/19/18 08/20/18 Range/Units 07:45 04:14 WBC 6.7 5.3 (4.0-11.0) th/mm3 RBC 2.97 L 2.91 L (4.00-5.30) mil/mm3 Hgb 9.4 L 9.1 L (11.6-15.3) gm/dL Hct 28.8 L 28.4 L (35.0-46.0) % Plt Count 227 212 (150-450) th/mm3 Neut # (Auto) 4.5 3.4 (1.8-7.7) th/mm3 Lymph # (Auto) 1.2 1.0 (1.0-4.8) th/mm3 [place] # (Auto) 0.6 0.6 (0.0-0.9) th/mm3 Eos # (Auto) 0.3 0.3 (0.0-0.4) th/mm3 Baso # (Auto) 0.0 0.0 (0.0-0.2) th/mm3 Comprehensive Metabolic Panel 08/19/18 08/20/18 Range/Units 07:45 04:14 Sodium 140 141 (136-145) meq/L Potassium 5.0 4.7 (3.5-5.1) meq/L Chloride 98 99 (98-107) meq/L Carbon Dioxide 32.4 H 33.7 H (21.0-32.0) meq/L BUN 61 H 36 H (7-18) mg/dL Creatinine 9.03 H 6.56 H (0.50-1.00) mg/dL Calcium 8.7 D 8.4 L (8.5-10.1) mg/dL AST 8 L 12 L (15-37) U/L ALT 17 14 (10-53) U/L Alkaline Phosphatase 116 116 (45-117) U/L Total Protein 7.9 7.6 (6.4-8.2) g/dL Albumin 3.2 L 3.2 L (3.4-5.0) g/dL Intake and Output 08/20/18 08/20/18 08/20/18 06:59 14:59 22:59 Intake Total 120 / 120 1500 / 1500 Output Total 0 / 0 Balance 120 / 120 1500 / 1500 Intake: IV 1500 / 1500 NS Inj 1,000 ML @ As Directed 1000 / 1000 OTHER .Q0M PRN Rx#:[id number] Oral 120 / 120 Output: Urine 0 / 0 Other: Date of Last Bowel Movement 08/19/18 Weight 94.6 kg Assessment and Plan - Assessment (1) Tobacco abuse Code(s): Z72.0 - Tobacco use Status: Chronic (2) ESRD (end stage renal disease) on dialysis Code(s): N18.6 - End stage renal disease; Z99.2 - Dependence on renal dialysis Status: Chronic (3) Chest pain Code(s): R07.9 - Chest pain, unspecified Status: Resolved (4) Hypertension Code(s): I10 - Essential (primary) hypertension Status: Chronic (5) AVNRT (AV red re-entry tachycardia) Code(s): I47.1 - Supraventricular tachycardia Status: Acute - Plan 1) SVT Appears to have gone back into AVNRT leading her to the ER s/p Adenosine 6mg x1 converting her EP study showing junction rhythm and atrial tachycardia Discussed with Dr. Liz, plan to send home on Metoprolol and he will see her in 2 weeks 2) Chest pain Previous cath showing mild disease Most likely secondary to AVNRT 3) ESRD on HD (3) Chest pain Qualifiers: Chest pain type: unspecified Qualified Code(s): R07.9 - Chest pain, unspecified
== END 2018-08-20 16:20 | disposition home or self-care (01) ==
LOC: NEPC 09:25 → NEDA 09:25 → N04 15:51 → HCIS 08-19 16:58 → HCPC 08-19 20:41
PROVIDERS: ADMIT Family Medicine; ATTEND Family Medicine